=== PATIENT | female | born 1950 | race Caucasian/White ===

== ENCOUNTER 2020-01-26 13:24 | Inpatient (IN) | payer MEDICARE, OTHER ==
[~2020-01-26] VITALS: Ht 157.5 cm; Wt 99.8 kg
[2020-01-26] MEDS ORDERED: DOCU-109 PO (14:02)
[2020-01-26] MEDS ORDERED: ATEN-57 PO (14:02)
[2020-01-26] MEDS ORDERED: FURO-68 PO (14:02)
[2020-01-26] MEDS ORDERED: FLUT9.9S NS (14:02)
[2020-01-26] MEDS ORDERED: CALC-496 PO (14:02)
[2020-01-26] MEDS ORDERED: POLY15DR27 EACHEYE (14:02)
[2020-01-26] MEDS ORDERED: METF10007 PO (14:02)
[2020-01-26] MEDS ORDERED: MAG355OR12 PO (14:02)
[2020-01-26] MEDS ORDERED: LEVO125T5 PO (14:02)
[2020-01-26] MEDS ORDERED: ACET325T9 PO (14:02)
[2020-01-26] MEDS ORDERED: MONT10TA80 PO (14:02)
[2020-01-26] MEDS ORDERED: DIVA250T PO (14:02)
[2020-01-26] MEDS ORDERED: DONE10TA7 PO (14:02)
[2020-01-26] MEDS ORDERED: ALBU2.5V8 IH (14:02)
[2020-01-26] MEDS ORDERED: BUPR300T3 PO (14:02)
[2020-01-26] MEDS ORDERED: ESCITALOPRAM OX20 MG PO (14:02)
[2020-01-26] MEDS ORDERED: AMLO10TA8 PO (14:02)
[2020-01-26] MEDS ORDERED: MULT-121 PO (14:02)
[2020-01-26] MEDS ORDERED: OXYB-36 PO (14:03)
[2020-01-26] MEDS ORDERED: FERR325T14 PO (14:03)
[2020-01-26] MEDS ORDERED: GUAI600T47 PO (14:03)
[2020-01-26] MEDS ORDERED: MAGN64TA6 PO (14:03)
[2020-01-26] MEDS ORDERED: PANT40TA3 PO (14:03)
[2020-01-26] MEDS ORDERED: CLON0.5T4 PO (14:03)
--- NOTE | 2020-01-26 14:25 | NUR ---
Admission Note with Justification for Admission to [facility] Patient admitted to [facility] for protective oversight for emergency stabilization of acute psychiatric crisis. Pt admitted from: LT Facility Mode of arrival: Secure Transport Accompanied By: Secure Transport Precipitating behaviors that initiated intake and admission: hallucinations, delusions, katlin Description of failure of out patient attempts at stabilization in previous setting list behavior and medication trials: increased clonazepam, journaling, redirection Behaviors and assessment findings upon admission: Calm, compliant Plan: Admit for protective oversight for adjustment and stabilization of medications, behaviors and mood. Intense treatment regimen including groups, medication adjustments, therapy, consistent regimen for ADL's, self care, and sleep hygiene. Daily monitoring by Inpatient staff, Psychiatry, and Medical Physician.
[2020-01-26] MEDS ORDERED: METHYL SALICYLATE/MENTHOL TOPICAL OINTMENT 57GM TUBE. TP PRN (14:45)
[2020-01-26] MEDS ORDERED: MAGNESIUM HYDROXIDE 2,400 MG/30 ML ORAL.SUSP. PO PRN (14:45)
[2020-01-26 15:16] LABS: BASO # 0.1 x10^3/uL (0.0-0.2); BASO % 1 % (0-3); EOS # 0.2 x10^3/uL (0.0-0.7); EOS % 3 % (0-3); HEMATOCRIT 39.6 % (36.0-47.0); HEMOGLOBIN 13.1 g/dL (12.0-15.5); LYMPH # 1.9 x10^3/uL (1.0-4.8); LYMPH % 23 % (24-48); MEAN CORPUSCULAR HEMOGLOBIN 30 pg (25-35); MEAN CORPUSCULAR HGB CONC 33 g/dL (31-37); MEAN CORPUSCULAR VOLUME 91 fL (79-100); MONO # 0.9 x10^3/uL (0.0-1.1); MONO % 11 % (0-9); NEUT % 62 % (31-73); PLATELET COUNT 233 x10^3/uL (140-400); RED BLOOD COUNT 4.34 x10^6/uL (3.50-5.40); RED CELL DISTRIBUTION WIDTH 16.6 % (11.5-14.5); WHITE BLOOD COUNT 8.1 x10^3/uL (4.0-11.0)
[2020-01-26 15:24] VITALS: BP 149/81
[2020-01-26 15:26] LABS: ALBUMIN 3.3 g/dL (3.4-5.0); ALBUMIN/GLOBULIN RATIO 0.9 (1.0-1.7); ALK PHOS 69 U/L (46-116); ALT (SGPT) 20 U/L (14-59); ANION GAP 8 (6-14); AST (SGOT) 12 U/L (15-37); BLOOD UREA NITROGEN 32 mg/dL (7-20); BUN/CREATININE RATIO 20 (6-20); CALCIUM 9.5 mg/dL (8.5-10.1); CARBON DIOXIDE 29 mmol/L (21-32); CHLORIDE 107 mmol/L (98-107); CREATININE 1.6 mg/dL (0.6-1.0); GFR 31.9; GLUCOSE 104 mg/dL (70-99); MAGNESIUM 1.8 mg/dL (1.8-2.4); POTASSIUM 4.5 mmol/L (3.5-5.1); SODIUM 144 mmol/L (136-145); TOTAL BILIRUBIN 0.4 mg/dL (0.2-1.0)
[2020-01-26 15:39] LABS: VAL ACID 40 mcg/mL (50-100)
[2020-01-26 16:12] VITALS: BP 149/81
[2020-01-26] MEDS: POLYVINYL ALCOHOL 1.4% OPHTH SOLUTION 15ML BOTTLE. OU SCH (21:00)
[2020-01-26] MEDS ORDERED: ALBUTEROL SULFATE 2.5 MG/3 ML NEBU. IH SCH (21:00)
[2020-01-26] MEDS: ALBUTEROL SULFATE 8GM INHALER. INH SCH (21:00)
[2020-01-26] MEDS: MONTELUKAST 10 MG TABLET. PO SCH (21:26)
[2020-01-26] MEDS: DONEPEZIL HCL 10 MG TABLET PO SCH (21:27)
[2020-01-26] MEDS: PANTOPRAZOLE 40 MG TABLET. PO SCH (21:28)
[2020-01-26] MEDS: DIVALPROEX ER 250 MG TAB.ER.24H. PO SCH (21:28)
[2020-01-26] MEDS: OXYBUTYNIN CHLORIDE 5 MG TABLET PO SCH (21:28)
[2020-01-26] MEDS: clonazePAM 0.5 MG TABLET PO SCH (21:29)
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
--- NOTE | 2020-01-26 22:11 | PDOC ---
Exam Note: Avni Note: Please also refer to the separate dictated note~for this date of service dictated separately.~Patient seen individually. Discussed the patient with Nursing staff reviewed the chart.~Reviewed interim history and current functioning. Reviewed vital signs,~Labs/ Radiology~and current medications noted below. Continue current treatment with the changes noted in the dictated addendum note Assessment: Vital Signs/I&O: Vital Signs Date Time Temp Pulse Resp B/P (MAP) Pulse Ox O2 Delivery O2 Flow Rate FiO2 01/26/20 16:12 97.6 62 18 149/81 (103) 97 01/26/20 15:24 Room Air Labs: Laboratory Tests Test 01/26/20 14:55 01/26/20 19:31 White Blood Count 8.1 x10^3/uL (4.0-11.0) Red Blood Count 4.34 x10^6/uL (3.50-5.40) Hemoglobin 13.1 g/dL (12.0-15.5) Hematocrit 39.6 % (36.0-47.0) Mean Corpuscular Volume 91 fL (79-100) Mean Corpuscular Hemoglobin 30 pg (25-35) Mean Corpuscular Hemoglobin Concent 33 g/dL (31-37) Red Cell Distribution Width 16.6 % (11.5-14.5) H Platelet Count 233 x10^3/uL (140-400) Neutrophils (%) (Auto) 62 % (31-73) Lymphocytes (%) (Auto) 23 % (24-48) L Monocytes (%) (Auto) 11 % (0-9) H Eosinophils (%) (Auto) 3 % (0-3) Basophils (%) (Auto) 1 % (0-3) Neutrophils # (Auto) 5.0 x10^3uL (1.8-7.7) Lymphocytes # (Auto) 1.9 x10^3/uL (1.0-4.8) Monocytes # (Auto) 0.9 x10^3/uL (0.0-1.1) Eosinophils # (Auto) 0.2 x10^3/uL (0.0-0.7) Basophils # (Auto) 0.1 x10^3/uL (0.0-0.2) Sodium Level 144 mmol/L (136-145) Potassium Level 4.5 mmol/L (3.5-5.1) Chloride Level 107 mmol/L (98-107) Carbon Dioxide Level 29 mmol/L (21-32) Anion Gap 8 (6-14) Blood Urea Nitrogen 32 mg/dL (7-20) H Creatinine 1.6 mg/dL (0.6-1.0) H Estimated GFR (Cockcroft-Gault) 31.9 BUN/Creatinine Ratio 20 (6-20) Glucose Level 104 mg/dL (70-99) H Calcium Level 9.5 mg/dL (8.5-10.1) Magnesium Level 1.8 mg/dL (1.8-2.4) Total Bilirubin 0.4 mg/dL (0.2-1.0) Aspartate Amino Transferase (AST) 12 U/L (15-37) L Alanine Aminotransferase (ALT) 20 U/L (14-59) Alkaline Phosphatase 69 U/L (46-116) Total Protein 7.0 g/dL (6.4-8.2) Albumin 3.3 g/dL (3.4-5.0) L Albumin/Globulin Ratio 0.9 (1.0-1.7) L Valproic Acid Level 40 mcg/mL (50-100) L Valproic Acid Last Dose Date 01/25/20 Valproic Acid Last Dose Time 2100 Glucose (Fingerstick) 165 mg/dL (70-99) H Current Medications: Meds: Current Medications Medications (Trade) Dose Ordered Sig/Annika Route PRN Reason Start Time Stop Time Status Last Admin Dose Admin Clonazepam (KlonoPIN) 0.25 mg BID PO 01/26/20 21:00 01/26/20 21:29 Divalproex Sodium (Depakote Er) 1,250 mg HS PO 01/26/20 21:00 01/26/20 21:28 Donepezil HCl (Aricept) 10 mg HS PO 01/26/20 21:00 01/26/20 21:27 Guaifenesin (Mucinex Er) 1,200 mg BID PO 01/26/20 21:00 01/26/20 21:27 Montelukast Sodium (Singulair) 10 mg HS PO 01/26/20 21:00 01/26/20 21:26 Pantoprazole Sodium (Protonix) 40 mg HS PO 01/26/20 21:00 01/26/20 21:28 Oxybutynin Chloride (Ditropan) 5 mg HS PO 01/26/20 21:00 01/26/20 21:28 I have reviewed the current psychotropics carefully including drug interactions. Risk benefit ratio favors no change other than as noted in my dictated progress note. JABARI ARBOLEDA MD Jan 26, 2020 22:11
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
[2020-01-26 23:28] LABS: CLARITY,URINE CLEAR; COLOR,URINE YELLOW; GLUCOSE,URINE NEG (NEG)
[2020-01-26 23:29] LABS: BACTERIA,URINE FEW /HPF (0-FEW); BILIRUBIN,URINE NEG (NEG); NITRITE,URINE NEG (NEG); RBC,URINE 0 /HPF (0-2); SQUAMOUS EPITHELIAL CELL,UR FEW /LPF; UROBILINOGEN,URINE 0.2 mg/dL (0.2 mg/dL); WBC,URINE OCC /HPF (0-4)
[2020-01-26 23:30] LABS: HYALINE CASTS, URINE FEW /HPF
[2020-01-27 00:07] LABS: THYROXINE 6.5 ug/dL (4.5-12.0)
[2020-01-27 01:07] LABS: HEMOGLOBIN A1C 6.1 % (4.8-5.6)
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
[2020-01-27] MEDS: ACETAMINOPHEN 325 MG TABLET PO PRN (05:34)
[2020-01-27] MEDS: LEVOTHYROXINE 125 MCG TABLET PO SCH (05:34)
[2020-01-27 05:52] VITALS: BP 142/82
[2020-01-27] MEDS ORDERED: LEVOTHYROXINE 125 MCG TABLET PO SCH (07:30)
[2020-01-27] MEDS ORDERED: CITALOPRAM 20 MG TABLET. PO SCH (09:00)
[2020-01-27] MEDS: clonazePAM 0.5 MG TABLET PO SCH ×2 (09:38→20:38)
[2020-01-27] MEDS: MULTIVITAMIN with MINERAL TABLET. PO SCH (09:38)
[2020-01-27] MEDS: ATENOLOL 50 MG TABLET PO SCH (09:39)
[2020-01-27] MEDS: FERROUS SULFATE 325 MG TABLET. PO SCH (09:39)
[2020-01-27] MEDS: DOCUSATE SODIUM 100 MG CAPSULE PO SCH (09:39)
[2020-01-27] MEDS: MAGNESIUM CHLORIDE ER 64 MG TABLET.ER PO SCH (09:39)
[2020-01-27] MEDS: CALCIUM CARB/VIT D3 500/200 TABLET PO SCH (09:39)
[2020-01-27] MEDS: buPROPion XL 300 MG TAB.ER.24H. PO SCH (09:40)
[2020-01-27] MEDS: metFORMIN 500 MG TABLET PO SCH (09:40)
[2020-01-27] MEDS: amLODIPine BESYLATE 10 MG TABLET PO SCH (09:40)
[2020-01-27] MEDS: FLUTICASONE 50MCG/NASAL SPRAY 16GM BOTTLE. NS SCH (09:41)
[2020-01-27] MEDS: POLYVINYL ALCOHOL 1.4% OPHTH SOLUTION 15ML BOTTLE. OU SCH ×2 (09:41→20:33)
[2020-01-27] MEDS: FUROSEMIDE 40 MG TABLET PO SCH (09:41)
[2020-01-27] MEDS: ALBUTEROL SULFATE 8GM INHALER. INH SCH ×2 (09:42→20:38)
[2020-01-27 11:22] LABS: THYROID STIM HORMONE (TSH) 0.858 uIU/mL (0.358-3.740)
--- NOTE | 2020-01-27 12:42 | CONS ---
DATE OF CONSULTATION: 01/27/2020 MEDICAL CONSULTATION NOTE ATTENDING PHYSICIAN: Brett Tee M.D. REASON FOR CONSULTATION: We are asked to see this patient for medical consultation. HISTORY OF PRESENT ILLNESS: The patient is a 69-year-old female who was residing at a longterm in [place], [place]. She was sent here because she has underlying bipolar depression. She has been a little bit manic. She has had mood swings, lability, restless, insomnia, a little bit of paranoia. She thinks that she was loaded in an airplane and flown here. She had some flight of ideas. She has no other complaints at this time. She does not appear in acute distress. Much of the history is obtained from the old chart. PAST MEDICAL HISTORY: Issues include bipolar disorder, dementia, hypertension, hypothyroidism, on replacement, iron deficiency anemia, posttraumatic stress disorder, gastroesophageal reflux disease, and seasonal allergies. She also has urge incontinence. CURRENT MEDICATIONS: Reviewed. She was taking Tylenol, albuterol, amlodipine, Tenormin, Wellbutrin, clonazepam, Depakote, docusate, Aricept, Lexapro, iron, fluticasone, Lasix, guaifenesin, Synthroid, magnesium hydroxide, metformin, multivitamin, oxybutynin, Protonix, and artificial tears. ALLERGIES: SHE HAS ALLERGIES TO ADHESIVE TAPES AND FLUOXETINE. Exact reaction is unclear. SOCIAL HISTORY: Nonsmoker and nondrinker. FAMILY HISTORY: Unfortunately is unobtainable. She does not remember. REVIEW OF SYSTEMS: Significant for some mild epigastric discomfort. She denied any fevers, chills, cough, congestion. All other systems reviewed and determined to be negative. PHYSICAL EXAMINATION: GENERAL: When I saw her, this is a pleasant elderly female. INITIAL VITAL SIGNS: Showed a blood pressure of 142/82 mmHg, pulse of 66 and regular, temperature 97.5 degrees Fahrenheit, and oxygen saturation was 95% on room air. HEENT: Head is without trauma. Pupils are reactive. Sclerae nonicteric. Oropharynx is clear. NECK: Supple, no bruits. LUNGS: Otherwise clear. CARDIOVASCULAR: Showed regular heart tones. No obvious gallops. Peripheral pulses are palpable and full. ABDOMEN: Obese, protuberant. No organomegaly. Bowel sounds are normoactive. EXTREMITIES: Showed no cyanosis or edema. SKIN: Warm and dry. She has some degenerative changes of both knees. NEUROLOGIC: The patient is alert and oriented, but she is confused. She was confabulating a bit, saying some relatives are in the building next door. Her cranial nerves 2 through 12 were grossly intact. Her cone runner in upper and lower extremities were equal and symmetrical. Her tendon reflexes in the upper and lower extremities were equal, bilateral and normal with a brisk reflex. Her Romberg test was negative. She walks along fairly well with the use of a walker on wheels. PERTINENT LABORATORY STUDIES: Her hemoglobin is up to 13.1 g/dL with a white count of 8100. Chemistry panel is fairly unremarkable. Potassium 4.5 mEq, creatinine 1.6 mg/dL, nonfasting blood sugar 104. Cholesterol was 215. Thyroid functions were normal. ASSESSMENT: 1. A 69-year-old female, longterm resident with bipolar disorder. 2. Behavioral issues. 3. Dementia, moderate. 4. Type 2 diabetes. 5. Essential hypertension. 6. Degenerative arthritis. 7. History of posttraumatic stress disorder. 8. Remote history of heart disease. RECOMMENDATIONS: 1. The patient is stable from medical standpoint. 2. Continue home meds as ordered. Thank you again for asking me to see this patient for medical consultation. We should gladly follow along during her stay in the hospital. ZAHRA BARBOUR MD DR: JULI/yvon JOB#: [id number] / [id number]
[2020-01-27 16:14] VITALS: BP 131/80
--- NOTE | 2020-01-27 18:05 | NUR ---
Pt has been in room. Withdrawn to bed except meals. Has been intermittently delusions, and somatic. Has been compliant with meds and cares.
[2020-01-27] MEDS: DONEPEZIL HCL 10 MG TABLET PO SCH (20:33)
[2020-01-27] MEDS: PANTOPRAZOLE 40 MG TABLET. PO SCH (20:34)
[2020-01-27] MEDS: traZODone 50 MG TABLET. PO SCH (20:34)
[2020-01-27] MEDS: MONTELUKAST 10 MG TABLET. PO SCH (20:35)
[2020-01-27] MEDS: DIVALPROEX ER 250 MG TAB.ER.24H. PO SCH (20:35)
[2020-01-27] MEDS: OXYBUTYNIN CHLORIDE 5 MG TABLET PO SCH (20:35)
--- NOTE | 2020-01-27 21:58 | PDOC ---
Exam Note: Avni Note: Please also refer to the separate dictated note~for this date of service dictated separately.~Patient seen individually. Discussed the patient with Nursing staff reviewed the chart.~Reviewed interim history and current functioning. Reviewed vital signs,~Labs/ Radiology~and current medications noted below. Continue current treatment with the changes noted in the dictated addendum note Assessment: Vital Signs/I&O: Vital Signs Date Time Temp Pulse Resp B/P (MAP) Pulse Ox O2 Delivery O2 Flow Rate FiO2 01/27/20 16:14 98.3 54 20 131/80 (97) 98 Room Air I & O 01/26/20 01/26/20 01/27/20 15:00 23:00 07:00 Intake Total 600 ml Output Total 1 ml Balance 599 ml Labs: Laboratory Tests Test 01/27/20 08:06 Glucose (Fingerstick) 102 mg/dL (70-99) H Current Medications: Meds: Current Medications Medications (Trade) Dose Ordered Sig/Annika Route PRN Reason Start Time Stop Time Status Last Admin Dose Admin Amlodipine Besylate (Norvasc) 10 mg DAILY PO 01/27/20 09:00 01/27/20 09:40 Atenolol (Tenormin) 50 mg DAILY PO 01/27/20 09:00 01/27/20 09:39 Bupropion HCl (Wellbutrin Xl) 300 mg DAILY PO 01/27/20 09:00 01/27/20 09:40 Docusate Sodium (Colace) 100 mg DAILY PO 01/27/20 09:00 01/27/20 09:39 Ferrous Sulfate (Feosol) 325 mg DAILY PO 01/27/20 09:00 01/27/20 09:39 Furosemide (Lasix) 40 mg DAILY PO 01/27/20 09:00 01/27/20 09:41 Calcium/Vitamin D (Oscal D 500mg/ 200uts) 1 tab DAILY PO 01/27/20 09:00 01/27/20 09:39 Citalopram Hydrobromide (CeleXA) 40 mg DAILY PO 01/27/20 09:00 01/27/20 17:19 DC 01/27/20 09:40 Fluticasone Propionate (Flonase) 2 spray DAILY NS 01/27/20 09:00 01/27/20 09:41 Magnesium Chloride (Mag Delay) 64 mg DAILY PO 01/27/20 09:00 01/27/20 09:39 Metformin HCl (Glucophage) 1,000 mg DAILY PO 01/27/20 09:00 01/27/20 09:40 Multivitamins/ Calcium (Thera-M Plus) 1 tab DAILY PO 01/27/20 09:00 01/27/20 09:38 Levothyroxine Sodium (Synthroid) 125 mcg DAILY@0600 PO 01/27/20 06:00 01/27/20 05:34 Olanzapine (ZyPREXA ZYDIS) 2.5 mg PRN Q2HRS PRN PO PSYCHOSIS 01/27/20 17:15 01/27/20 20:35 Trazodone HCl (Desyrel) 50 mg QHS PO 01/27/20 21:00 01/27/20 20:34 I have reviewed the current psychotropics carefully including drug interactions. Risk benefit ratio favors no change other than as noted in my dictated progress note. Diagnosis: Problems: (1) Bipolar disorder, curr episode mixed, severe, with psychotic features (2) Anxiety disorder, unspecified (3) Impulse control disorder, unspecified JABARI ARBOLEDA MD Jan 27, 2020 21:58
--- NOTE | 2020-01-27 22:00 | NUR ---
Patient is in her room on assumption of care. She is compliant with assessments and medications taken whole floated in yogurt. Cooperative with HS care and shower. Less grandiose and expansive than she was on previous evening, easier to redirect. No agitation. Patient denies any pain or discomfort. Denies SI. Patient appears to be sleeping comfortably at present time.
[2020-01-28 05:51] VITALS: BP 154/78
[2020-01-28] MEDS: LEVOTHYROXINE 125 MCG TABLET PO SCH (06:00)
[2020-01-28 07:42] LABS: VAL ACID 50 mcg/mL (50-100)
[2020-01-28] MEDS: FERROUS SULFATE 325 MG TABLET. PO SCH (08:21)
[2020-01-28] MEDS: CALCIUM CARB/VIT D3 500/200 TABLET PO SCH (08:21)
[2020-01-28] MEDS: FUROSEMIDE 40 MG TABLET PO SCH (08:21)
[2020-01-28] MEDS: ATENOLOL 50 MG TABLET PO SCH (08:22)
[2020-01-28] MEDS: MULTIVITAMIN with MINERAL TABLET. PO SCH (08:23)
[2020-01-28] MEDS: metFORMIN 500 MG TABLET PO SCH (08:23)
[2020-01-28] MEDS: DOCUSATE SODIUM 100 MG CAPSULE PO SCH (08:23)
[2020-01-28] MEDS: MAGNESIUM CHLORIDE ER 64 MG TABLET.ER PO SCH (08:23)
[2020-01-28] MEDS: amLODIPine BESYLATE 10 MG TABLET PO SCH (08:23)
[2020-01-28] MEDS: buPROPion XL 300 MG TAB.ER.24H. PO SCH (08:23)
[2020-01-28] MEDS: FLUTICASONE 50MCG/NASAL SPRAY 16GM BOTTLE. NS SCH (08:24)
[2020-01-28] MEDS: POLYVINYL ALCOHOL 1.4% OPHTH SOLUTION 15ML BOTTLE. OU SCH ×2 (08:24→20:26)
[2020-01-28] MEDS: ARIPiprazole 5 MG TABLET PO SCH (08:26)
[2020-01-28] MEDS: clonazePAM 0.5 MG TABLET PO SCH ×2 (08:26→20:24)
[2020-01-28] MEDS: ALBUTEROL SULFATE 8GM INHALER. INH SCH ×2 (08:26→20:34)
--- NOTE | 2020-01-28 15:38 | NUR ---
Pt remains in room. Up for meals. Compliant with meds. Needy at times. Up with physical therapy in halls. Tolerated well. Pt asked staff when she could go home. Was instructed to talk with DR joie marvin.
[2020-01-28] MEDS: ACETAMINOPHEN 325 MG TABLET PO PRN ×2 (15:53→22:37)
[2020-01-28 16:09] VITALS: BP 139/76
[2020-01-28] MEDS: OXYBUTYNIN CHLORIDE 5 MG TABLET PO SCH (20:24)
[2020-01-28] MEDS: traZODone 50 MG TABLET. PO SCH ×2 (20:24→22:37)
[2020-01-28] MEDS: DIVALPROEX ER 500 MG TAB.ER.24H PO SCH (20:25)
[2020-01-28] MEDS: MONTELUKAST 10 MG TABLET. PO SCH (20:25)
[2020-01-28] MEDS: PANTOPRAZOLE 40 MG TABLET. PO SCH (20:26)
[2020-01-28] MEDS: DONEPEZIL HCL 10 MG TABLET PO SCH (20:26)
--- NOTE | 2020-01-28 21:59 | PDOC ---
Exam Note: Avni Note: Please also refer to the separate dictated note~for this date of service dictated separately.~Patient seen individually. Discussed the patient with Nursing staff reviewed the chart.~Reviewed interim history and current functioning. Reviewed vital signs,~Labs/ Radiology~and current medications noted below. Continue current treatment with the changes noted in the dictated addendum note Assessment: Vital Signs/I&O: Vital Signs Date Time Temp Pulse Resp B/P (MAP) Pulse Ox O2 Delivery O2 Flow Rate FiO2 01/28/20 19:44 97.6 96 01/28/20 16:09 83 18 139/76 (97) 01/27/20 16:14 Room Air I & O 01/27/20 01/27/20 01/28/20 15:00 23:00 07:00 Intake Total 720 ml 600 ml Balance 720 ml 600 ml Labs: Laboratory Tests Test 01/28/20 06:24 01/28/20 08:21 01/28/20 19:15 Valproic Acid Level 50 mcg/mL (50-100) Valproic Acid Last Dose Date 01/26/20 Valproic Acid Last Dose Time 2100 Glucose (Fingerstick) 99 mg/dL (70-99) 210 mg/dL (70-99) H Current Medications: Meds: Current Medications Medications (Trade) Dose Ordered Sig/Annika Route PRN Reason Start Time Stop Time Status Last Admin Dose Admin Aripiprazole (Abilify) 5 mg DAILY PO 01/28/20 09:00 01/28/20 08:26 Divalproex Sodium (Depakote Er) 1,500 mg QHS PO 01/28/20 21:00 01/28/20 20:25 I have reviewed the current psychotropics carefully including drug interactions. Risk benefit ratio favors no change other than as noted in my dictated progress note. Diagnosis: Problems: (1) Impulse control disorder, unspecified (2) Anxiety disorder, unspecified (3) Bipolar disorder, curr episode mixed, severe, with psychotic features JABARI ARBOLEDA MD Jan 28, 2020 21:59
--- NOTE | 2020-01-28 22:19 | NUR ---
Pt was in her room this evening, she took meds whole floated in applesauce. 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 She has been pleasant and cooperative tonight.
[2020-01-28] MEDS: traZODone 50 MG TABLET. PO PRN (22:37)
--- NOTE | 2020-01-28 22:40 | NUR ---
PRN Trazodone and Tylenol given for report of JERRY and not being able to go to sleep.
[2020-01-29] MEDS: LEVOTHYROXINE 125 MCG TABLET PO SCH (05:34)
[2020-01-29 05:46] VITALS: BP 176/69
[2020-01-29] MEDS: MULTIVITAMIN with MINERAL TABLET. PO SCH (07:44)
[2020-01-29] MEDS: ARIPiprazole 5 MG TABLET PO SCH (07:44)
[2020-01-29] MEDS: metFORMIN 500 MG TABLET PO SCH (07:44)
[2020-01-29] MEDS: buPROPion XL 300 MG TAB.ER.24H. PO SCH (07:44)
[2020-01-29] MEDS: MAGNESIUM CHLORIDE ER 64 MG TABLET.ER PO SCH (07:44)
[2020-01-29] MEDS: DOCUSATE SODIUM 100 MG CAPSULE PO SCH (07:44)
[2020-01-29] MEDS: ATENOLOL 50 MG TABLET PO SCH (07:45)
[2020-01-29] MEDS: FUROSEMIDE 40 MG TABLET PO SCH (07:45)
[2020-01-29] MEDS: amLODIPine BESYLATE 10 MG TABLET PO SCH (07:46)
[2020-01-29] MEDS: CALCIUM CARB/VIT D3 500/200 TABLET PO SCH (07:46)
[2020-01-29] MEDS: POLYVINYL ALCOHOL 1.4% OPHTH SOLUTION 15ML BOTTLE. OU SCH ×2 (07:46→20:22)
[2020-01-29] MEDS: FERROUS SULFATE 325 MG TABLET. PO SCH (07:46)
[2020-01-29] MEDS: ALBUTEROL SULFATE 8GM INHALER. INH SCH ×2 (07:47→20:22)
[2020-01-29] MEDS: FLUTICASONE 50MCG/NASAL SPRAY 16GM BOTTLE. NS SCH (07:48)
[2020-01-29] MEDS: clonazePAM 0.5 MG TABLET PO SCH ×2 (07:51→20:23)
--- NOTE | 2020-01-29 13:28 | NUR ---
Pt up in am for meal. Pt remains delusional. Thinks she is getting today and wants Dr to release her. Peer wandered in room. Pt thought peer was her fiance and wanted to discuss adopting a child with him. After lunch pt asked for nurse to come in. Wanted to talk about the guest list and those family members she wanted to move into her "large house, in the the basement." Attempted to reorient pt to hospital setting. Offered her a notebook to write down things she didn't want to forget. Pt said no, she had a great memory.
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
[2020-01-29 16:15] VITALS: BP 145/55
--- NOTE | 2020-01-29 16:15 | NUR ---
Pt has been compliant with meds and cares.
[2020-01-29] MEDS: DONEPEZIL HCL 10 MG TABLET PO SCH (20:22)
[2020-01-29] MEDS: DIVALPROEX ER 500 MG TAB.ER.24H PO SCH (20:23)
[2020-01-29] MEDS: MONTELUKAST 10 MG TABLET. PO SCH (20:23)
[2020-01-29] MEDS: OXYBUTYNIN CHLORIDE 5 MG TABLET PO SCH (20:23)
[2020-01-29] MEDS: PANTOPRAZOLE 40 MG TABLET. PO SCH (20:24)
[2020-01-29] MEDS: traZODone 50 MG TABLET. PO SCH (20:26)
--- NOTE | 2020-01-29 21:56 | PDOC ---
Exam Note: Avni Note: Please also refer to the separate dictated note~for this date of service dictated separately.~Patient seen individually. Discussed the patient with Nursing staff reviewed the chart.~Reviewed interim history and current functioning. Reviewed vital signs,~Labs/ Radiology~and current medications noted below. Continue current treatment with the changes noted in the dictated addendum note Assessment: Vital Signs/I&O: Vital Signs Date Time Temp Pulse Resp B/P (MAP) Pulse Ox O2 Delivery O2 Flow Rate FiO2 01/29/20 16:15 97.7 50 16 145/55 (85) 98 01/27/20 16:14 Room Air I & O 01/28/20 01/28/20 01/29/20 15:00 23:00 07:00 Intake Total 600 ml 480 ml 480 ml Balance 600 ml 480 ml 480 ml Labs: Laboratory Tests Test 01/29/20 20:18 Glucose (Fingerstick) 99 mg/dL (70-99) Current Medications: I have reviewed the current psychotropics carefully including drug interactions. Risk benefit ratio favors no change other than as noted in my dictated progress note. Diagnosis: Problems: (1) Impulse control disorder, unspecified (2) Anxiety disorder, unspecified (3) Bipolar disorder, curr episode mixed, severe, with psychotic features JABARI ARBOLEDA MD Jan 29, 2020 21:56
[2020-01-30] MEDS: LEVOTHYROXINE 125 MCG TABLET PO SCH (05:22)
[2020-01-30 05:52] VITALS: BP 163/74
--- NOTE | 2020-01-30 07:02 | PDOC ---
Exam Note: Avni Note: This note is a late entry for 01/27/2020 covers elements not covered in my initial note. Subjective: The patient was evaluated face to face in the evening of 01/27/2020 with Brenda BOND. She slept 2-3/4 hours previous night. She is somewhat delusional, paranoid, suspicious but not aggressive. She appears somewhat manic and grandiose and we will go ahead and stop her Celexa 20 mg a day, especially since she is also on Wellbutrin 300 mg daily. Review of Systems: Ambulation impaired with walker. No CV, , pulmonary, eye system symptoms on review. Mental Status Exam: Reasonably oriented. Speech is coherent, somewhat pressured at times. Abstraction is fair. Computation is impaired. Language function intact. Attention span short. Affect is somewhat labile. Laboratory Data: Reviewed. Impression: Bipolar 1 disorder mixed with psychotic features. Anxiety disorder unspecified. Rest unchanged. Plan: Start Abilify 5 mg a day for psychotic symptoms. Stop the Celexa. Maintain Wellbutrin 300 mg daily, Depakote ER 1250 mg h.s., which was increased since the level was 40 on the lower dosage. We will repeat labs on the 02/02/2020 including valproic acid level. Maintain Aricept 10 mg a day, Klonopin 0.25 mg b.i.d. Assessment: Vital Signs/I&O: Vital Signs Date Time Temp Pulse Resp B/P (MAP) Pulse Ox O2 Delivery O2 Flow Rate FiO2 01/30/20 05:52 97.8 99 18 163/74 (103) 96 01/27/20 16:14 Room Air I & O 01/29/20 01/29/20 01/30/20 15:00 23:00 07:00 Intake Total 840 ml 240 ml 360 ml Balance 840 ml 240 ml 360 ml Labs: Laboratory Tests Test 01/29/20 20:18 Glucose (Fingerstick) 99 mg/dL (70-99) Current Medications: I have reviewed the current psychotropics carefully including drug interactions. Risk benefit ratio favors no change other than as noted in my dictated progress note. Diagnosis: Problems: (1) Impulse control disorder, unspecified (2) Anxiety disorder, unspecified (3) Bipolar disorder, curr episode mixed, severe, with psychotic features JABARI ARBOLEDA MD Jan 30, 2020 07:02
--- NOTE | 2020-01-30 07:41 | PDOC ---
Exam Note: Avni Note: This note is a late entry for 01/28/2020 covers elements not covered in my initial note. Subjective: The patient was evaluated on telehealth rounds in the evening of 01/28/2020 with Duy Rodriguez RN. Nursing report was with Brenda BOND. She slept 6- 3/4 hours previous night. She has been calmer, repeatedly asking nursing staff she wants to go home, obsessed about this. Review of Systems: No CV, , pulmonary, eye system symptoms on review. Gait unsteady. Mental Status Exam: Oriented to herself and situation. Speech is coherent. Abstraction is fair. Computation is impaired. Mood and affect remains somewhat grandiose, labile. Laboratory Data: Reviewed. Impression: Bipolar disorder manic with psychotic features. Rest unchanged. Plan: Continue current psychotropics. Valproic acid level is 50. We will i ncrease Depakote ER from 1250 mg h.s. to 1500 mg h.s. Check CBC, CMP, valproic acid level in 3 days. Continue rest of the psychotropics unchanged including Abilify, Aricept, Wellbutrin, Klonopin 0.25 mg b.i.d. and trazodone h.s. p.r.n., and Zyprexa p.r.n. Assessment: Vital Signs/I&O: Vital Signs Date Time Temp Pulse Resp B/P (MAP) Pulse Ox O2 Delivery O2 Flow Rate FiO2 01/30/20 05:52 97.8 99 18 163/74 (103) 96 01/27/20 16:14 Room Air I & O 01/29/20 01/29/20 01/30/20 15:00 23:00 07:00 Intake Total 840 ml 240 ml 360 ml Balance 840 ml 240 ml 360 ml Labs: Laboratory Tests Test 01/29/20 20:18 Glucose (Fingerstick) 99 mg/dL (70-99) Current Medications: I have reviewed the current psychotropics carefully including drug interactions. Risk benefit ratio favors no change other than as noted in my dictated progress note. Diagnosis: Problems: (1) Impulse control disorder, unspecified (2) Anxiety disorder, unspecified (3) Bipolar disorder, curr episode mixed, severe, with psychotic features JABARI ARBOLEDA MD Jan 30, 2020 07:41
[2020-01-30] MEDS: ALBUTEROL SULFATE 8GM INHALER. INH SCH ×2 (07:42→20:26)
[2020-01-30] MEDS: POLYVINYL ALCOHOL 1.4% OPHTH SOLUTION 15ML BOTTLE. OU SCH ×2 (07:42→20:26)
[2020-01-30] MEDS: metFORMIN 500 MG TABLET PO SCH (07:43)
[2020-01-30] MEDS: CALCIUM CARB/VIT D3 500/200 TABLET PO SCH (07:43)
[2020-01-30] MEDS: FLUTICASONE 50MCG/NASAL SPRAY 16GM BOTTLE. NS SCH (07:43)
[2020-01-30] MEDS: MAGNESIUM CHLORIDE ER 64 MG TABLET.ER PO SCH (07:43)
[2020-01-30] MEDS: FERROUS SULFATE 325 MG TABLET. PO SCH (07:43)
[2020-01-30] MEDS: DOCUSATE SODIUM 100 MG CAPSULE PO SCH (07:43)
[2020-01-30] MEDS: amLODIPine BESYLATE 10 MG TABLET PO SCH (07:44)
[2020-01-30] MEDS: buPROPion XL 300 MG TAB.ER.24H. PO SCH (07:44)
[2020-01-30] MEDS: MULTIVITAMIN with MINERAL TABLET. PO SCH (07:44)
[2020-01-30] MEDS: FUROSEMIDE 40 MG TABLET PO SCH (07:44)
[2020-01-30] MEDS: ATENOLOL 50 MG TABLET PO SCH (07:44)
[2020-01-30] MEDS: ARIPiprazole 5 MG TABLET PO SCH (07:46)
[2020-01-30] MEDS: clonazePAM 0.5 MG TABLET PO SCH ×2 (09:00→20:28)
[2020-01-30 16:14] VITALS: BP 164/60
--- NOTE | 2020-01-30 18:09 | NUR ---
Pt up adl in room and out in [place] with mask. Remains delusional but calm and compliant.
[2020-01-30] MEDS: traZODone 50 MG TABLET. PO SCH (20:27)
[2020-01-30] MEDS: MONTELUKAST 10 MG TABLET. PO SCH (20:27)
[2020-01-30] MEDS: DIVALPROEX ER 500 MG TAB.ER.24H PO SCH (20:28)
[2020-01-30] MEDS: PANTOPRAZOLE 40 MG TABLET. PO SCH (20:28)
[2020-01-30] MEDS: OXYBUTYNIN CHLORIDE 5 MG TABLET PO SCH (20:29)
[2020-01-30] MEDS: DONEPEZIL HCL 10 MG TABLET PO SCH (20:29)
--- NOTE | 2020-01-30 22:06 | PDOC ---
Exam Note: Avni Note: Please also refer to the separate dictated note~for this date of service dictated separately.~Patient seen individually. Discussed the patient with Nursing staff reviewed the chart.~Reviewed interim history and current functioning. Reviewed vital signs,~Labs/ Radiology~and current medications noted below. Continue current treatment with the changes noted in the dictated addendum note Assessment: Vital Signs/I&O: Vital Signs Date Time Temp Pulse Resp B/P (MAP) Pulse Ox O2 Delivery O2 Flow Rate FiO2 01/30/20 16:14 97.8 54 18 164/60 (94) 94 Room Air I & O 01/29/20 01/29/20 01/30/20 15:00 23:00 07:00 Intake Total 840 ml 240 ml 360 ml Balance 840 ml 240 ml 360 ml Labs: Laboratory Tests Test 01/30/20 07:50 01/30/20 19:24 Glucose (Fingerstick) 103 mg/dL (70-99) H 128 mg/dL (70-99) H Current Medications: Meds: Current Medications Medications (Trade) Dose Ordered Sig/Annika Route PRN Reason Start Time Stop Time Status Last Admin Dose Admin Aripiprazole (Abilify) 7.5 mg DAILY PO 01/30/20 09:00 01/30/20 07:46 I have reviewed the current psychotropics carefully including drug interactions. Risk benefit ratio favors no change other than as noted in my dictated progress note. Diagnosis: Problems: (1) Impulse control disorder, unspecified (2) Anxiety disorder, unspecified (3) Bipolar disorder, curr episode mixed, severe, with psychotic features JABARI ARBOLEDA MD Jan 30, 2020 22:06
--- NOTE | 2020-01-30 23:46 | NUR ---
This evening pt was in [place] for awhile sitting with peers. She was pleasant and cooperative oriented x4 and delusional. She said she is getting tonight or tomorrow to her fiance, Dragan, he is a manager domestic, surgeon and a country music star. After the wedding they are going to [facility] in [place].
[2020-01-31] MEDS: LEVOTHYROXINE 125 MCG TABLET PO SCH (06:00)
[2020-01-31 06:38] VITALS: BP 168/83
--- NOTE | 2020-01-31 07:16 | PDOC ---
Exam Note: Avni Note: This note is a late entry for 01/29/2020 covers elements not covered in my initial note. Subjective: The patient was reviewed face to face in the morning of 01/29/2020 with treatment team meeting with Shiva (social service staff), Yanci, activity therapy, and Brenda BOND. She slept 2-1/2 hours previous night. She is well oriented to year and month, somewhat paranoid, talking about wanting to get to [place] and she was perseverating about this as I met with her at some length in the evening in her room. She has also been paranoid, psychotic talking about a bad man coming into her room and she got agitated through her blanket on the floor compliant with medications. She was also talking about her fianc and adopting a child, getting this very evening. Review of Systems: Ambulation impaired with walker. No CV, , pulmonary, eye, ENT system symptoms on review. Mental Status Exam: The patient is reasonably oriented. Speech is coherent. Abstraction is fair. Computation is impaired. Language function intact. Attention span is short. Mood and affect remains somewhat labile. Laboratory Data: Reviewed. Impression: Bipolar disorder manic with psychotic features. Rest unchanged. Plan: No change from initial note. Given her psychotic symptoms, we will increase the Abilify from 5 mg a day to 7.5 mg a day. Continue Wellbutrin, Aricept, Depakote, Klonopin and trazodone and Zyprexa p.r.n. Assessment: Vital Signs/I&O: Vital Signs Date Time Temp Pulse Resp B/P (MAP) Pulse Ox O2 Delivery O2 Flow Rate FiO2 01/31/20 06:38 97.3 56 16 168/83 (111) 98 01/30/20 16:14 Room Air I & O 01/30/20 01/30/20 01/31/20 15:00 23:00 07:00 Intake Total 700 ml 600 ml Balance 700 ml 600 ml Labs: Laboratory Tests Test 01/30/20 07:50 01/30/20 19:24 Glucose (Fingerstick) 103 mg/dL (70-99) H 128 mg/dL (70-99) H Current Medications: Meds: Current Medications Medications (Trade) Dose Ordered Sig/Annika Route PRN Reason Start Time Stop Time Status Last Admin Dose Admin Aripiprazole (Abilify) 7.5 mg DAILY PO 01/30/20 09:00 01/30/20 07:46 I have reviewed the current psychotropics carefully including drug interactions. Risk benefit ratio favors no change other than as noted in my dictated progress note. Diagnosis: Problems: (1) Impulse control disorder, unspecified (2) Anxiety disorder, unspecified (3) Bipolar disorder, curr episode mixed, severe, with psychotic features JABARI ARBOLEDA MD Jan 31, 2020 07:16
--- NOTE | 2020-01-31 07:29 | PDOC ---
Exam Note: Avni Note: This note is a late entry for 01/30/2020 covers elements not covered in my initial note. Subjective: The patient was evaluated on telehealth rounds in the evening of 01/30/2020 because of the COVID-19 pandemic restrictions with [facility] nursing aid. Nursing report was with Brenda BOND. She slept 5 hours previous night. She was quite delusional, paranoid at times, believing she has to get today and leave for her honeymoon to [place]. I processed this with her. She did have conversation with her daughter today. At times she is half undressed, getting out of her room, compliant with medications. Review of Systems: Ambulation impaired in walker. No CV, , pulmonary, eye system symptoms on review. Mental Status Exam: Reasonably oriented. Speech is coherent, a little pressured. Abstraction is fair. Computation is impaired. Language function intact. Attention span is short. Mood and affect remains somewhat grandiose. Laboratory Data: Reviewed. Impression: Bipolar disorder manic with psychotic features. Rest unchanged. Plan: Continue current psychotropics. The patient remains psychotic. Depakote is being increased for her bipolar manic psychotic symptoms. We will check labs level to reach therapeutic level. We will increase the Abilify from 5 mg a day to 7.5 mg a day. Continue rest unchanged for now. Assessment: Vital Signs/I&O: Vital Signs Date Time Temp Pulse Resp B/P (MAP) Pulse Ox O2 Delivery O2 Flow Rate FiO2 01/31/20 06:38 97.3 56 16 168/83 (111) 98 01/30/20 16:14 Room Air I & O 01/30/20 01/30/20 01/31/20 15:00 23:00 07:00 Intake Total 700 ml 600 ml Balance 700 ml 600 ml Labs: Laboratory Tests Test 01/30/20 07:50 01/30/20 19:24 Glucose (Fingerstick) 103 mg/dL (70-99) H 128 mg/dL (70-99) H Current Medications: Meds: Current Medications Medications (Trade) Dose Ordered Sig/Annika Route PRN Reason Start Time Stop Time Status Last Admin Dose Admin Aripiprazole (Abilify) 7.5 mg DAILY PO 01/30/20 09:00 01/30/20 07:46 I have reviewed the current psychotropics carefully including drug interactions. Risk benefit ratio favors no change other than as noted in my dictated progress note. Diagnosis: Problems: (1) Impulse control disorder, unspecified (2) Anxiety disorder, unspecified (3) Bipolar disorder, curr episode mixed, severe, with psychotic features JABARI ARBOLEDA MD Jan 31, 2020 07:29
[2020-01-31 07:59] LABS: HEMATOCRIT 36.2 % (36.0-47.0); HEMOGLOBIN 11.8 g/dL (12.0-15.5); RED BLOOD COUNT 3.93 x10^6/uL (3.50-5.40); RED CELL DISTRIBUTION WIDTH 16.5 % (11.5-14.5); WHITE BLOOD COUNT 6.2 x10^3/uL (4.0-11.0)
[2020-01-31 08:16] LABS: ALBUMIN 3.1 g/dL (3.4-5.0); ALBUMIN/GLOBULIN RATIO 0.9 (1.0-1.7); ALK PHOS 67 U/L (46-116); ALT (SGPT) 17 U/L (14-59); ANION GAP 5 (6-14); AST (SGOT) 11 U/L (15-37); BLOOD UREA NITROGEN 31 mg/dL (7-20); BUN/CREATININE RATIO 22 (6-20); CALCIUM 9.2 mg/dL (8.5-10.1); CARBON DIOXIDE 29 mmol/L (21-32); CHLORIDE 103 mmol/L (98-107); CREATININE 1.4 mg/dL (0.6-1.0); GFR 37.2; GLUCOSE 107 mg/dL (70-99); POTASSIUM 4.1 mmol/L (3.5-5.1); SODIUM 137 mmol/L (136-145); TOTAL BILIRUBIN 0.3 mg/dL (0.2-1.0); TOTAL PROTEIN 6.7 g/dL (6.4-8.2)
[2020-01-31 08:30] LABS: VAL ACID 56 mcg/mL (50-100)
[2020-01-31] MEDS: ALBUTEROL SULFATE 8GM INHALER. INH SCH ×2 (08:52→21:03)
[2020-01-31] MEDS: FLUTICASONE 50MCG/NASAL SPRAY 16GM BOTTLE. NS SCH (08:53)
[2020-01-31] MEDS: POLYVINYL ALCOHOL 1.4% OPHTH SOLUTION 15ML BOTTLE. OU SCH ×2 (08:53→20:56)
[2020-01-31] MEDS: ARIPiprazole 5 MG TABLET PO SCH (08:54)
[2020-01-31] MEDS: metFORMIN 500 MG TABLET PO SCH (08:54)
[2020-01-31] MEDS: DOCUSATE SODIUM 100 MG CAPSULE PO SCH (08:54)
[2020-01-31] MEDS: FERROUS SULFATE 325 MG TABLET. PO SCH (08:54)
[2020-01-31] MEDS: MAGNESIUM CHLORIDE ER 64 MG TABLET.ER PO SCH (08:55)
[2020-01-31] MEDS: FUROSEMIDE 40 MG TABLET PO SCH (08:55)
[2020-01-31] MEDS: ATENOLOL 50 MG TABLET PO SCH (08:56)
[2020-01-31] MEDS: amLODIPine BESYLATE 10 MG TABLET PO SCH (08:56)
[2020-01-31] MEDS: MULTIVITAMIN with MINERAL TABLET. PO SCH (08:57)
[2020-01-31] MEDS: buPROPion XL 300 MG TAB.ER.24H. PO SCH (08:57)
[2020-01-31] MEDS: CALCIUM CARB/VIT D3 500/200 TABLET PO SCH (08:57)
[2020-01-31] MEDS: clonazePAM 0.5 MG TABLET PO SCH ×2 (08:58→20:55)
--- NOTE | 2020-01-31 14:38 | NUR ---
Pt is delusional stating she is discharging today because she is getting today. She is compliant with her medication and assessment. No agitation and aggression. No hallucinations.
[2020-01-31 16:24] VITALS: BP 151/88
[2020-01-31] MEDS: PANTOPRAZOLE 40 MG TABLET. PO SCH (20:55)
[2020-01-31] MEDS: MONTELUKAST 10 MG TABLET. PO SCH (20:55)
[2020-01-31] MEDS: DONEPEZIL HCL 10 MG TABLET PO SCH (20:56)
[2020-01-31] MEDS: traZODone 50 MG TABLET. PO SCH (20:56)
[2020-01-31] MEDS: DIVALPROEX ER 500 MG TAB.ER.24H PO SCH (20:56)
[2020-01-31] MEDS: OXYBUTYNIN CHLORIDE 5 MG TABLET PO SCH (20:56)
--- NOTE | 2020-01-31 22:03 | PDOC ---
Exam Note: Avni Note: Please also refer to the separate dictated note~for this date of service dictated separately.~Patient seen individually. Discussed the patient with Nursing staff reviewed the chart.~Reviewed interim history and current functioning. Reviewed vital signs,~Labs/ Radiology~and current medications noted below. Continue current treatment with the changes noted in the dictated addendum note Assessment: Vital Signs/I&O: Vital Signs Date Time Temp Pulse Resp B/P (MAP) Pulse Ox O2 Delivery O2 Flow Rate FiO2 01/31/20 21:50 97.8 96 01/31/20 16:24 61 18 151/88 (109) 01/30/20 16:14 Room Air I & O 01/30/20 01/30/20 01/31/20 15:00 23:00 07:00 Intake Total 700 ml 600 ml Balance 700 ml 600 ml Labs: Laboratory Tests Test 01/31/20 07:26 01/31/20 07:58 01/31/20 19:11 White Blood Count 6.2 x10^3/uL (4.0-11.0) Red Blood Count 3.93 x10^6/uL (3.50-5.40) Hemoglobin 11.8 g/dL (12.0-15.5) L Hematocrit 36.2 % (36.0-47.0) Mean Corpuscular Volume 92 fL (79-100) Mean Corpuscular Hemoglobin 30 pg (25-35) Mean Corpuscular Hemoglobin Concent 33 g/dL (31-37) Red Cell Distribution Width 16.5 % (11.5-14.5) H Platelet Count 224 x10^3/uL (140-400) Sodium Level 137 mmol/L (136-145) Potassium Level 4.1 mmol/L (3.5-5.1) Chloride Level 103 mmol/L (98-107) Carbon Dioxide Level 29 mmol/L (21-32) Anion Gap 5 (6-14) L Blood Urea Nitrogen 31 mg/dL (7-20) H Creatinine 1.4 mg/dL (0.6-1.0) H Estimated GFR (Cockcroft-Gault) 37.2 BUN/Creatinine Ratio 22 (6-20) H Glucose Level 107 mg/dL (70-99) H Calcium Level 9.2 mg/dL (8.5-10.1) Total Bilirubin 0.3 mg/dL (0.2-1.0) Aspartate Amino Transferase (AST) 11 U/L (15-37) L Alanine Aminotransferase (ALT) 17 U/L (14-59) Alkaline Phosphatase 67 U/L (46-116) Total Protein 6.7 g/dL (6.4-8.2) Albumin 3.1 g/dL (3.4-5.0) L Albumin/Globulin Ratio 0.9 (1.0-1.7) L Valproic Acid Level 56 mcg/mL (50-100) Valproic Acid Last Dose Date 01/30/20 Valproic Acid Last Dose Time 2027 Glucose (Fingerstick) 97 mg/dL (70-99) 209 mg/dL (70-99) H Current Medications: I have reviewed the current psychotropics carefully including drug interactions. Risk benefit ratio favors no change other than as noted in my dictated progress note. Diagnosis: Problems: (1) Impulse control disorder, unspecified (2) Anxiety disorder, unspecified (3) Bipolar disorder, curr episode mixed, severe, with psychotic features JABARI ARBOLEDA MD Jan 31, 2020 22:03
--- NOTE | 2020-01-31 23:28 | NUR ---
Nursing Note Pt states she is a triplet and that one of her triplet sisters is here on the unit and demanding to speak to her. She also states that she is waiting for the DR and her fiance to come to her room for their "Appointment" that she scheduled earlier today. She also requested to speak with the PBX SUPERVISOR but refused to tell me what about. After the male PBX SUPERVISOR was in her room, he stated she just wanted small things like her pillow fluffed, and another blanket. She was acting like it was some top secret complaint or request. Was compliant with meds and assessments.
[2020-02-01] MEDS: buPROPion XL 300 MG TAB.ER.24H. PO SCH (06:16)
[2020-02-01] MEDS: LEVOTHYROXINE 125 MCG TABLET PO SCH (06:32)
[2020-02-01] MEDS: FUROSEMIDE 40 MG TABLET PO SCH (06:33)
[2020-02-01] MEDS: FERROUS SULFATE 325 MG TABLET. PO SCH (06:34)
[2020-02-01] MEDS: MULTIVITAMIN with MINERAL TABLET. PO SCH (06:34)
[2020-02-01] MEDS: MAGNESIUM CHLORIDE ER 64 MG TABLET.ER PO SCH (06:38)
[2020-02-01] MEDS: metFORMIN 500 MG TABLET PO SCH (06:38)
[2020-02-01] MEDS: CALCIUM CARB/VIT D3 500/200 TABLET PO SCH (06:40)
[2020-02-01] MEDS: ATENOLOL 50 MG TABLET PO SCH (06:40)
[2020-02-01] MEDS: POLYVINYL ALCOHOL 1.4% OPHTH SOLUTION 15ML BOTTLE. OU SCH ×2 (06:41→20:54)
[2020-02-01] MEDS: amLODIPine BESYLATE 10 MG TABLET PO SCH (06:41)
[2020-02-01] MEDS: DOCUSATE SODIUM 100 MG CAPSULE PO SCH (06:41)
[2020-02-01] MEDS: ALBUTEROL SULFATE 8GM INHALER. INH SCH ×2 (06:42→20:54)
[2020-02-01] MEDS: clonazePAM 0.5 MG TABLET PO SCH ×2 (06:42→20:55)
[2020-02-01] MEDS: FLUTICASONE 50MCG/NASAL SPRAY 16GM BOTTLE. NS SCH (06:48)
[2020-02-01 07:13] VITALS: BP 132/84
--- NOTE | 2020-02-01 11:11 | NUR ---
Nursing Note Pt tends to be demanding, and short with staff. Delusional this am, she is preparing for her wedding that is occurring today on the unit with her fiance. The wedding has been postponed for the last 3 days per the patient but now today is the day. Med compliant and cooperative with assessment.
[2020-02-01 16:37] VITALS: BP 151/82
[2020-02-01] MEDS: MONTELUKAST 10 MG TABLET. PO SCH (20:55)
[2020-02-01] MEDS: PANTOPRAZOLE 40 MG TABLET. PO SCH (20:55)
[2020-02-01] MEDS: DONEPEZIL HCL 10 MG TABLET PO SCH (20:55)
[2020-02-01] MEDS: ACETAMINOPHEN 325 MG TABLET PO PRN (20:55)
[2020-02-01] MEDS: risperiDONE 1 MG TABLET. PO SCH (20:55)
[2020-02-01] MEDS: traZODone 50 MG TABLET. PO SCH (20:55)
[2020-02-01] MEDS: OXYBUTYNIN CHLORIDE 5 MG TABLET PO SCH (20:55)
[2020-02-01] MEDS: DIVALPROEX ER 500 MG TAB.ER.24H PO SCH (20:56)
--- NOTE | 2020-02-01 22:03 | PDOC ---
Exam Note: Avni Note: Please also refer to the separate dictated note~for this date of service dictated separately.~Patient seen individually. Discussed the patient with Nursing staff reviewed the chart.~Reviewed interim history and current functioning. Reviewed vital signs,~Labs/ Radiology~and current medications noted below. Continue current treatment with the changes noted in the dictated addendum note Assessment: Vital Signs/I&O: Vital Signs Date Time Temp Pulse Resp B/P (MAP) Pulse Ox O2 Delivery O2 Flow Rate FiO2 02/01/20 16:37 97.6 56 18 151/82 (105) 95 01/30/20 16:14 Room Air I & O 01/31/20 01/31/20 02/01/20 15:00 23:00 07:00 Intake Total 440 ml 440 ml Balance 440 ml 440 ml Labs: Laboratory Tests Test 02/01/20 07:47 Glucose (Fingerstick) 101 mg/dL (70-99) H Current Medications: Meds: Current Medications Medications (Trade) Dose Ordered Sig/Annika Route PRN Reason Start Time Stop Time Status Last Admin Dose Admin Risperidone (RisperDAL) 1 mg HS PO 02/01/20 21:00 02/01/20 20:55 I have reviewed the current psychotropics carefully including drug interactions. Risk benefit ratio favors no change other than as noted in my dictated progress note. Diagnosis: Problems: (1) Impulse control disorder, unspecified (2) Anxiety disorder, unspecified (3) Bipolar disorder, curr episode mixed, severe, with psychotic features JABARI ARBOLEDA MD Feb 01, 2020 22:03
--- NOTE | 2020-02-01 22:49 | NUR ---
Pt has been calm and pleasant during the day. Pt interactive with other peers and enjoyed listening to the jared and coloring. No delusions voiced today. Compliant with medications.
[2020-02-02] MEDS: LEVOTHYROXINE 125 MCG TABLET PO SCH (05:46)
[2020-02-02 06:29] VITALS: BP 188/92
--- NOTE | 2020-02-02 07:04 | PDOC ---
Exam Note: Avni Note: This note is a late entry for 01/31/2020 covers elements not covered in my initial note. Subjective: The patient was evaluated face to face in the evening of 01/31/2020 with Beatrice BOND. She slept 2 hours previous night. Previous night she was delusional, stating she was getting , was going to for [employer]. Valproic acid level at 66 therapeutic. She remains paranoid, psychotic. Review of Systems: Ambulation impaired with walker. No CV, , pulmonary, eye system symptoms on review. Mental Status Exam: Reasonably oriented. Speech is coherent, rapid at times. Abstraction is fair. Computation is impaired. Language function intact. Attention span is short. Mood and affect remains grandiose, labile. Laboratory Data: Reviewed. Impression: Bipolar disorder manic with psychotic features. Rest unchanged. Plan: The patients psychotic symptoms persist in spite of Abilify 7.5 mg a day. We will change to Risperdal 1 mg h.s. Continue Wellbutrin, Aricept, Depakote, Klonopin along with trazodone p.r.n. Valproic acid level therapeutic at 66. Assessment: Vital Signs/I&O: Vital Signs Date Time Temp Pulse Resp B/P (MAP) Pulse Ox O2 Delivery O2 Flow Rate FiO2 02/02/20 06:29 97.5 87 18 188/92 (124) 93 01/30/20 16:14 Room Air I & O 02/01/20 02/01/20 02/02/20 15:00 23:00 07:00 Intake Total 240 ml 600 ml Balance 240 ml 600 ml Labs: Laboratory Tests Test 02/01/20 07:47 Glucose (Fingerstick) 101 mg/dL (70-99) H Current Medications: Meds: Current Medications Medications (Trade) Dose Ordered Sig/Annika Route PRN Reason Start Time Stop Time Status Last Admin Dose Admin Risperidone (RisperDAL) 1 mg HS PO 02/01/20 21:00 02/01/20 20:55 I have reviewed the current psychotropics carefully including drug interactions. Risk benefit ratio favors no change other than as noted in my dictated progress note. Diagnosis: Problems: (1) Impulse control disorder, unspecified (2) Anxiety disorder, unspecified (3) Bipolar disorder, curr episode mixed, severe, with psychotic features JABARI ARBOLEDA MD Feb 02, 2020 07:04
--- NOTE | 2020-02-02 07:34 | PDOC ---
Exam Note: Avni Note: This note is a late entry for 02/01/2020 covers elements not covered in my initial note. Subjective: The patient was evaluated face to face in the evening of 02/01/2020 with Magaly BOND. She slept 6-1/2 hours previous night, which is an improvement. Review of Systems: Ambulation impaired with walker. No CV, , pulmonary, eye, ENT system symptoms on review. Reliability poor. Mental Status Exam: Oriented to herself and situation. Speech is coherent, rapid and loud at times, still delusional, wanting to get to [place] but she states she lost her fianc. Abstraction is fair. Computation is impaired. Language function intact. Laboratory Data: Reviewed. Impression: Bipolar disorder manic with psychotic features. Rest unchanged. Plan: Continue current psychotropics. Assessment: Vital Signs/I&O: Vital Signs Date Time Temp Pulse Resp B/P (MAP) Pulse Ox O2 Delivery O2 Flow Rate FiO2 02/02/20 06:29 97.5 87 18 188/92 (124) 93 01/30/20 16:14 Room Air I & O 02/01/20 02/01/20 02/02/20 15:00 23:00 07:00 Intake Total 240 ml 600 ml Balance 240 ml 600 ml Labs: Laboratory Tests Test 02/01/20 07:47 Glucose (Fingerstick) 101 mg/dL (70-99) H Current Medications: Meds: Current Medications Medications (Trade) Dose Ordered Sig/Annika Route PRN Reason Start Time Stop Time Status Last Admin Dose Admin Risperidone (RisperDAL) 1 mg HS PO 02/01/20 21:00 02/01/20 20:55 I have reviewed the current psychotropics carefully including drug interactions. Risk benefit ratio favors no change other than as noted in my dictated progress note. Diagnosis: Problems: (1) Impulse control disorder, unspecified (2) Anxiety disorder, unspecified (3) Bipolar disorder, curr episode mixed, severe, with psychotic features JABARI ARBOLEDA MD Feb 02, 2020 07:34
[2020-02-02] MEDS: MAGNESIUM CHLORIDE ER 64 MG TABLET.ER PO SCH (09:09)
[2020-02-02] MEDS: FLUTICASONE 50MCG/NASAL SPRAY 16GM BOTTLE. NS SCH (09:09)
[2020-02-02] MEDS: FUROSEMIDE 40 MG TABLET PO SCH (09:09)
[2020-02-02] MEDS: POLYVINYL ALCOHOL 1.4% OPHTH SOLUTION 15ML BOTTLE. OU SCH ×2 (09:09→20:13)
[2020-02-02] MEDS: CALCIUM CARB/VIT D3 500/200 TABLET PO SCH (09:09)
[2020-02-02] MEDS: amLODIPine BESYLATE 10 MG TABLET PO SCH (09:09)
[2020-02-02] MEDS: DOCUSATE SODIUM 100 MG CAPSULE PO SCH (09:09)
[2020-02-02] MEDS: ALBUTEROL SULFATE 8GM INHALER. INH SCH ×2 (09:09→20:18)
[2020-02-02] MEDS: ATENOLOL 50 MG TABLET PO SCH (09:10)
[2020-02-02] MEDS: FERROUS SULFATE 325 MG TABLET. PO SCH (09:10)
[2020-02-02] MEDS: MULTIVITAMIN with MINERAL TABLET. PO SCH (09:10)
[2020-02-02] MEDS: metFORMIN 500 MG TABLET PO SCH (09:10)
[2020-02-02] MEDS: buPROPion XL 300 MG TAB.ER.24H. PO SCH (09:10)
[2020-02-02] MEDS: clonazePAM 0.5 MG TABLET PO SCH ×2 (09:16→20:18)
[2020-02-02] MEDS: ACETAMINOPHEN 325 MG TABLET PO PRN ×2 (09:16→16:13)
--- NOTE | 2020-02-02 14:01 | NUR ---
SHAKA contacted pt dtr Comfort to notify her that the unit as of now is on hold as a pt tested as positive; so until we get more direction from the health department, the Behavioral Unit will do no admissions in and no discharges out. We are hopefully to hear back today if not Wednesday. SHAKA will follow up with pt family. Comfort questioned if the effected pt was near him at all and SHAKA could not confirm or deny if there was any direct interaction.
[2020-02-02 17:01] VITALS: BP 145/71
--- NOTE | 2020-02-02 17:19 | NUR ---
Pt asked to return to room x1. Has been redirectable. Remains delusional. Compliant with meds and cares. Pt still asking to go home.
[2020-02-02] MEDS: DIVALPROEX ER 500 MG TAB.ER.24H PO SCH (20:13)
[2020-02-02] MEDS: MONTELUKAST 10 MG TABLET. PO SCH (20:13)
[2020-02-02] MEDS: DONEPEZIL HCL 10 MG TABLET PO SCH (20:14)
[2020-02-02] MEDS: PANTOPRAZOLE 40 MG TABLET. PO SCH (20:14)
[2020-02-02] MEDS: traZODone 50 MG TABLET. PO SCH (20:14)
[2020-02-02] MEDS: risperiDONE 1 MG TABLET. PO SCH (20:14)
[2020-02-02] MEDS: OXYBUTYNIN CHLORIDE 5 MG TABLET PO SCH (20:14)
--- NOTE | 2020-02-02 21:57 | PDOC ---
Exam Note: Avni Note: Please also refer to the separate dictated note~for this date of service dictated separately.~Patient seen individually. Discussed the patient with Nursing staff reviewed the chart.~Reviewed interim history and current functioning. Reviewed vital signs,~Labs/ Radiology~and current medications noted below. Continue current treatment with the changes noted in the dictated addendum note Assessment: Vital Signs/I&O: Vital Signs Date Time Temp Pulse Resp B/P (MAP) Pulse Ox O2 Delivery O2 Flow Rate FiO2 02/02/20 17:01 97.8 70 20 145/71 (95) 90 01/30/20 16:14 Room Air I & O 02/01/20 02/01/20 02/02/20 15:00 23:00 07:00 Intake Total 240 ml 600 ml Balance 240 ml 600 ml Labs: Laboratory Tests Test 02/02/20 07:30 02/02/20 08:16 Glucose (Fingerstick) 83 mg/dL (70-99) Coronavirus (PCR) Not detected (Not Detected) Current Medications: I have reviewed the current psychotropics carefully including drug interactions. Risk benefit ratio favors no change other than as noted in my dictated progress note. Diagnosis: Problems: (1) Impulse control disorder, unspecified (2) Anxiety disorder, unspecified (3) Bipolar disorder, curr episode mixed, severe, with psychotic features JABARI ARBOLEDA MD Feb 02, 2020 21:57
--- NOTE | 2020-02-02 22:38 | NUR ---
Nursing Note: Pt laying in bed backwards upon assessment. Pt compliant with meds and assessment. Pt was demanding about getting a brief and was trying to go back to bed instead of going to the bathroom. Pt redirected and was pleasant.
[2020-02-03] MEDS: amLODIPine BESYLATE 10 MG TABLET PO SCH (05:09)
[2020-02-03] MEDS: ACETAMINOPHEN 325 MG TABLET PO PRN (05:09)
[2020-02-03] MEDS: LEVOTHYROXINE 125 MCG TABLET PO SCH (05:10)
[2020-02-03 05:52] VITALS: BP 189/82
[2020-02-03] MEDS: ALBUTEROL SULFATE 8GM INHALER. INH SCH ×2 (08:09→21:11)
[2020-02-03] MEDS: POLYVINYL ALCOHOL 1.4% OPHTH SOLUTION 15ML BOTTLE. OU SCH ×2 (08:09→21:09)
[2020-02-03] MEDS: FLUTICASONE 50MCG/NASAL SPRAY 16GM BOTTLE. NS SCH (08:10)
[2020-02-03] MEDS: metFORMIN 500 MG TABLET PO SCH (08:10)
[2020-02-03] MEDS: MULTIVITAMIN with MINERAL TABLET. PO SCH (08:10)
[2020-02-03] MEDS: MAGNESIUM CHLORIDE ER 64 MG TABLET.ER PO SCH (08:10)
[2020-02-03] MEDS: DOCUSATE SODIUM 100 MG CAPSULE PO SCH (08:11)
[2020-02-03] MEDS: CALCIUM CARB/VIT D3 500/200 TABLET PO SCH (08:11)
[2020-02-03] MEDS: FUROSEMIDE 40 MG TABLET PO SCH (08:11)
[2020-02-03] MEDS: FERROUS SULFATE 325 MG TABLET. PO SCH (08:11)
[2020-02-03] MEDS: ATENOLOL 50 MG TABLET PO SCH (08:11)
[2020-02-03] MEDS: buPROPion XL 300 MG TAB.ER.24H. PO SCH (08:11)
[2020-02-03] MEDS: clonazePAM 0.5 MG TABLET PO SCH ×2 (08:13→21:11)
[2020-02-03 15:50] VITALS: BP 146/74
--- NOTE | 2020-02-03 16:25 | NUR ---
Pt has been up in room. restless and anxious in afternoon. Yelling at staff that she needs to leave because she's getting . Redirected eventually.
[2020-02-03] MEDS: risperiDONE 1 MG TABLET. PO SCH (21:08)
[2020-02-03] MEDS: MONTELUKAST 10 MG TABLET. PO SCH (21:08)
[2020-02-03] MEDS: DONEPEZIL HCL 10 MG TABLET PO SCH (21:08)
[2020-02-03] MEDS: PANTOPRAZOLE 40 MG TABLET. PO SCH (21:08)
[2020-02-03] MEDS: OXYBUTYNIN CHLORIDE 5 MG TABLET PO SCH (21:08)
[2020-02-03] MEDS: DIVALPROEX ER 500 MG TAB.ER.24H PO SCH (21:09)
[2020-02-03] MEDS: risperiDONE 0.25 MG TABLET. PO SCH (21:09)
[2020-02-03] MEDS: hydrALAZINE 25 MG TABLET PO SCH (21:11)
[2020-02-03] MEDS: traZODone 50 MG TABLET. PO SCH (21:11)
--- NOTE | 2020-02-03 21:56 | PDOC ---
Exam Note: Avni Note: Please also refer to the separate dictated note~for this date of service dictated separately.~Patient seen individually. Discussed the patient with Nursing staff reviewed the chart.~Reviewed interim history and current functioning. Reviewed vital signs,~Labs/ Radiology~and current medications noted below. Continue current treatment with the changes noted in the dictated addendum note Assessment: Vital Signs/I&O: Vital Signs Date Time Temp Pulse Resp B/P (MAP) Pulse Ox O2 Delivery O2 Flow Rate FiO2 02/03/20 21:11 58 146/74 02/03/20 15:50 98.1 20 96 Room Air I & O 02/02/20 02/02/20 02/03/20 15:00 23:00 07:00 Intake Total 480 ml 600 ml Balance 480 ml 600 ml Labs: Laboratory Tests Test 02/03/20 07:48 Glucose (Fingerstick) 91 mg/dL (70-99) Current Medications: Meds: Current Medications Medications (Trade) Dose Ordered Sig/Annika Route PRN Reason Start Time Stop Time Status Last Admin Dose Admin Hydralazine HCl (Apresoline) 25 mg TID PO 02/03/20 21:00 02/03/20 21:11 Risperidone (RisperDAL) 1 mg HS PO 02/03/20 21:00 02/03/20 21:08 Risperidone (RisperDAL) 0.25 mg QHS PO 02/03/20 21:00 02/03/20 21:09 I have reviewed the current psychotropics carefully including drug interactions. Risk benefit ratio favors no change other than as noted in my dictated progress note. Diagnosis: Problems: (1) Impulse control disorder, unspecified (2) Anxiety disorder, unspecified (3) Bipolar disorder, curr episode mixed, severe, with psychotic features JABARI ARBOLEDA MD Feb 03, 2020 21:56
--- NOTE | 2020-02-03 23:34 | NUR ---
Pt has been delusional, argumentative and demanding this shift. 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 It appears that pt believes a male pt is her brother and is demanding that the male pt sleep in the empty bed in her room. Pt came out of her room numerous times without a mask on and became irritable with redirection. Pt asking for multiple snacks this evening. Compliant with whole medications.
[2020-02-04 05:47] VITALS: BP 169/82
--- NOTE | 2020-02-04 05:57 | NUR ---
Pt has been up and down throughout the night. Each time pt requested different items: snacks, coloring pencils, to sit in the hallway, breakfast, etc. Pt hyperverbal and manic. Pt states she is not tired. Will continue to monitor.
[2020-02-04] MEDS: LEVOTHYROXINE 125 MCG TABLET PO SCH (06:00)
[2020-02-04] MEDS: FUROSEMIDE 40 MG TABLET PO SCH (07:46)
[2020-02-04] MEDS: MAGNESIUM CHLORIDE ER 64 MG TABLET.ER PO SCH (07:46)
[2020-02-04] MEDS: FERROUS SULFATE 325 MG TABLET. PO SCH (07:46)
[2020-02-04] MEDS: metFORMIN 500 MG TABLET PO SCH (07:47)
[2020-02-04] MEDS: buPROPion XL 300 MG TAB.ER.24H. PO SCH (07:47)
[2020-02-04] MEDS: DOCUSATE SODIUM 100 MG CAPSULE PO SCH (07:47)
[2020-02-04] MEDS: hydrALAZINE 25 MG TABLET PO SCH ×3 (07:47→20:28)
[2020-02-04] MEDS: ATENOLOL 50 MG TABLET PO SCH (07:48)
[2020-02-04] MEDS: MULTIVITAMIN with MINERAL TABLET. PO SCH (07:48)
[2020-02-04] MEDS: CALCIUM CARB/VIT D3 500/200 TABLET PO SCH (07:48)
[2020-02-04] MEDS: amLODIPine BESYLATE 10 MG TABLET PO SCH (07:48)
[2020-02-04] MEDS: FLUTICASONE 50MCG/NASAL SPRAY 16GM BOTTLE. NS SCH (07:49)
[2020-02-04] MEDS: POLYVINYL ALCOHOL 1.4% OPHTH SOLUTION 15ML BOTTLE. OU SCH ×2 (07:49→20:28)
[2020-02-04] MEDS: ALBUTEROL SULFATE 8GM INHALER. INH SCH ×2 (07:50→20:31)
[2020-02-04] MEDS: clonazePAM 0.5 MG TABLET PO SCH ×2 (07:52→20:32)
[2020-02-04 15:47] VITALS: BP 136/83
--- NOTE | 2020-02-04 17:14 | NUR ---
Pt has been up adl in room. Has been delusional but less so today. Has been compliant with meds and cares.
[2020-02-04] MEDS: PANTOPRAZOLE 40 MG TABLET. PO SCH (20:28)
[2020-02-04] MEDS: DONEPEZIL HCL 10 MG TABLET PO SCH (20:28)
[2020-02-04] MEDS: MONTELUKAST 10 MG TABLET. PO SCH (20:28)
[2020-02-04] MEDS: DIVALPROEX ER 500 MG TAB.ER.24H PO SCH (20:29)
[2020-02-04] MEDS: risperiDONE 1 MG TABLET. PO SCH (20:32)
[2020-02-04] MEDS: traZODone 50 MG TABLET. PO SCH (20:32)
[2020-02-04] MEDS: risperiDONE 0.25 MG TABLET. PO SCH (20:32)
[2020-02-04] MEDS: OXYBUTYNIN CHLORIDE 5 MG TABLET PO SCH (20:32)
--- NOTE | 2020-02-04 22:01 | PDOC ---
Exam Note: Avni Note: Please also refer to the separate dictated note~for this date of service dictated separately.~Patient seen individually. Discussed the patient with Nursing staff reviewed the chart.~Reviewed interim history and current functioning. Reviewed vital signs,~Labs/ Radiology~and current medications noted below. Continue current treatment with the changes noted in the dictated addendum note Assessment: Vital Signs/I&O: Vital Signs Date Time Temp Pulse Resp B/P (MAP) Pulse Ox O2 Delivery O2 Flow Rate FiO2 02/04/20 20:59 98.2 99 02/04/20 20:28 70 136/83 02/04/20 15:47 19 Room Air I & O 02/03/20 02/03/20 02/04/20 15:00 23:00 07:00 Intake Total 720 ml 240 ml 640 ml Balance 720 ml 240 ml 640 ml Labs: Laboratory Tests Test 02/04/20 07:53 Glucose (Fingerstick) 85 mg/dL (70-99) Current Medications: I have reviewed the current psychotropics carefully including drug interactions. Risk benefit ratio favors no change other than as noted in my dictated progress note. Diagnosis: Problems: (1) Impulse control disorder, unspecified (2) Anxiety disorder, unspecified (3) Bipolar disorder, curr episode mixed, severe, with psychotic features JABARI ARBOLEDA MD Feb 04, 2020 22:01
--- NOTE | 2020-02-04 22:40 | NUR ---
Pt continues to be delusional and attention seeking. Pt asking for numerous snacks this evening. Compliant with whole medications.
[2020-02-05] MEDS: ACETAMINOPHEN 325 MG TABLET PO PRN (01:37)
[2020-02-05] MEDS: traZODone 50 MG TABLET. PO PRN (01:37)
[2020-02-05 05:56] VITALS: BP 168/78
[2020-02-05] MEDS: LEVOTHYROXINE 125 MCG TABLET PO SCH (06:14)
--- NOTE | 2020-02-05 07:00 | PDOC ---
Exam Note: Avni Note: This note is a late entry for 02/02/2020 covers elements not covered in my initial note. Subjective: The patient was evaluated on telehealth rounds in the evening of 02/02/2020 with [facility] nursing aid as one of the patients on the unit has tested positive for COVID-19 and unit is on a lockdown with no admission and discharges. That is the reason I am doing telehealth rounds to minimize any further spread of the infection. Nursing report with Brenda BOND. She slept 1 hour previous night. She did attend group previous night, somewhat delusional. Review of Systems: Ambulation impaired in wheelchair. No CV, , pulmonary, eye, ENT system symptoms on review. Mental Status Exam: Reasonably oriented. I met with her at some length in her room on telehealth rounds. She is fixated on wanting to get , and go to [place]. States she can put it off if she has to be in the hospital for some time. I processed this with her. She is anxious, restless. Speech is coherent, rapid. Abstraction is fair. Computation is impaired. Language function intact. Mood and affect withdrawn. Laboratory Data: Reviewed. Impression: Bipolar disorder manic with psychotic features. Rest unchanged. Plan: She remains on Risperdal 1 mg h.s. for her delusions. We may need to increase this. Assessment: Vital Signs/I&O: Vital Signs Date Time Temp Pulse Resp B/P (MAP) Pulse Ox O2 Delivery O2 Flow Rate FiO2 02/05/20 05:56 97.6 57 18 168/78 (108) 97 Room Air I & O 02/04/20 02/04/20 02/05/20 15:00 23:00 07:00 Intake Total 960 ml 600 ml Balance 960 ml 600 ml Labs: Laboratory Tests Test 02/04/20 07:53 Glucose (Fingerstick) 85 mg/dL (70-99) Current Medications: I have reviewed the current psychotropics carefully including drug interactions. Risk benefit ratio favors no change other than as noted in my dictated progress note. Diagnosis: Problems: (1) Impulse control disorder, unspecified (2) Anxiety disorder, unspecified (3) Bipolar disorder, curr episode mixed, severe, with psychotic features JABARI ARBOLEDA MD Feb 05, 2020 07:00
--- NOTE | 2020-02-05 07:17 | PDOC ---
Exam Note: Avni Note: This note is a late entry for 02/03/2020 covers elements not covered in my initial note. Subjective: The patient was evaluated on telehealth rounds in the evening of 02/03/2020 with [facility] nursing aid as one of the patients on the unit has tested positive for COVID-19 and unit is on a lockdown with no admission and discharges. That is the reason I am doing telehealth rounds to minimize any further spread of the infection. Nursing report with Brenda BOND. She slept 7- 3/4 hours previous night. She has been coming out of her room. In the evening she was yelling out, wanting to be discharged so can go and get . She states she fell previous night but this was not observed per nursing staff. Review of Systems: Ambulation impaired in wheelchair. No CV, , pulmonary, eye, ENT system symptoms on review. Mental Status Exam: Oriented to herself and situation. She is quite delusional about her marriage. Speech is coherent. Abstraction is fair. Computation is impaired. Attention span is short. No suicidal or homicidal ideation. Laboratory Data: Reviewed. Impression: Bipolar disorder manic with psychotic features. Rest unchanged. Plan: No change from initial note but we will go ahead and increase the Risperdal from 1 mg h.s. to 1.25 mg h.s. Assessment: Vital Signs/I&O: Vital Signs Date Time Temp Pulse Resp B/P (MAP) Pulse Ox O2 Delivery O2 Flow Rate FiO2 02/05/20 05:56 97.6 57 18 168/78 (108) 97 Room Air I & O 02/04/20 02/04/20 02/05/20 15:00 23:00 07:00 Intake Total 960 ml 600 ml Balance 960 ml 600 ml Labs: Laboratory Tests Test 02/04/20 07:53 Glucose (Fingerstick) 85 mg/dL (70-99) Current Medications: I have reviewed the current psychotropics carefully including drug interactions. Risk benefit ratio favors no change other than as noted in my dictated progress note. Diagnosis: Problems: (1) Impulse control disorder, unspecified (2) Anxiety disorder, unspecified (3) Bipolar disorder, curr episode mixed, severe, with psychotic features JABARI ARBOLEDA MD Feb 05, 2020 07:17
--- NOTE | 2020-02-05 07:27 | PDOC ---
Exam Note: Avni Note: This note is a late entry for 02/04/2020 covers elements not covered in my initial note. Subjective: The patient was evaluated on telehealth rounds in the evening of 02/04/2020 with [facility] nursing aid as one of the patients on the unit has tested positive for COVID-19 and unit is on a lockdown with no admission and discharges. That is the reason I am doing telehealth rounds to minimize any further spread of the infection. Nursing report with Brenda BOND. She slept 3- 1/4 hours previous night. Previous night she was irritable, restless, anxious, distractible, at times refused to use the mask. Review of Systems: Ambulation impaired in wheelchair. No CV, , pulmonary, eye, ENT system symptoms on review. Mental Status Exam: Reasonably oriented. Speech is coherent, rapid and loud at times, still delusional. Abstraction is fair. Computation is impaired. Language function intact. Attention span is short. No suicidal or homicidal i deation. She remains paranoid suspicious, believes she has to get but we discussed how it is important to focus on her own health and then discuss other issues later. She is accepting of this. Laboratory Data: Reviewed. Impression: Bipolar disorder manic with psychotic features. Anxiety disorder unspecified. Rest unchanged. Plan: Continue current psychotropics. Assessment: Vital Signs/I&O: Vital Signs Date Time Temp Pulse Resp B/P (MAP) Pulse Ox O2 Delivery O2 Flow Rate FiO2 02/05/20 05:56 97.6 57 18 168/78 (108) 97 Room Air I & O 0 02/04/20 02/04/20 02/05/20 15:00 23:00 07:00 Intake Total 960 ml 600 ml Balance 960 ml 600 ml Labs: Laboratory Tests Test 02/04/20 07:53 Glucose (Fingerstick) 85 mg/dL (70-99) Current Medications: I have reviewed the current psychotropics carefully including drug interactions. Risk benefit ratio favors no change other than as noted in my dictated progress note. Diagnosis: Problems: (1) Impulse control disorder, unspecified (2) Anxiety disorder, unspecified (3) Bipolar disorder, curr episode mixed, severe, with psychotic features JABARI ARBOLEDA MD Feb 05, 2020 07:27
[2020-02-05] MEDS: FERROUS SULFATE 325 MG TABLET. PO SCH (08:24)
[2020-02-05] MEDS: amLODIPine BESYLATE 10 MG TABLET PO SCH (08:25)
[2020-02-05] MEDS: hydrALAZINE 25 MG TABLET PO SCH ×3 (08:25→20:25)
[2020-02-05] MEDS: MAGNESIUM CHLORIDE ER 64 MG TABLET.ER PO SCH (08:26)
[2020-02-05] MEDS: FUROSEMIDE 40 MG TABLET PO SCH (08:26)
[2020-02-05] MEDS: DOCUSATE SODIUM 100 MG CAPSULE PO SCH (08:27)
[2020-02-05] MEDS: metFORMIN 500 MG TABLET PO SCH (08:27)
[2020-02-05] MEDS: buPROPion XL 300 MG TAB.ER.24H. PO SCH (08:27)
[2020-02-05] MEDS: clonazePAM 0.5 MG TABLET PO SCH ×2 (08:27→20:28)
[2020-02-05] MEDS: ATENOLOL 50 MG TABLET PO SCH (08:28)
[2020-02-05] MEDS: CALCIUM CARB/VIT D3 500/200 TABLET PO SCH (08:28)
[2020-02-05] MEDS: MULTIVITAMIN with MINERAL TABLET. PO SCH (08:28)
[2020-02-05] MEDS: FLUTICASONE 50MCG/NASAL SPRAY 16GM BOTTLE. NS SCH (09:42)
[2020-02-05] MEDS: POLYVINYL ALCOHOL 1.4% OPHTH SOLUTION 15ML BOTTLE. OU SCH ×2 (09:42→20:31)
[2020-02-05] MEDS: ALBUTEROL SULFATE 8GM INHALER. INH SCH ×2 (09:43→20:31)
--- NOTE | 2020-02-05 12:42 | NUR ---
Patient in room in chair during initial assessment. Calm and cooperative with assessment. Medication given floated in yogurt, taken without difficulty. No delusions noted at this time. Will continue to monitor.
[2020-02-05 16:35] VITALS: BP 136/82
--- NOTE | 2020-02-05 17:18 | NUR ---
SHAKA contacted pt dtr, Comfort, to let her know that pt Covoid test came back negative. However, there is a pt that tested positive; which means that the unit will be quarantined for the next 2 weeks. Pt dtr is thankful her mother's test was positive and believed that this was just more time for her behaviors to be monitored and medications assessed. Comfort asked about sending frank and SW informed her that cards or pictures would be better. Frank are kept in the nurses station and pt would not be able to fully enjoy them. SHAKA will continue to keep pt dtr up to date over the course of 2 weeks.
[2020-02-05] MEDS: risperiDONE 0.25 MG TABLET. PO SCH (20:25)
[2020-02-05] MEDS: risperiDONE 1 MG TABLET. PO SCH (20:25)
[2020-02-05] MEDS: DIVALPROEX ER 500 MG TAB.ER.24H PO SCH (20:25)
[2020-02-05] MEDS: DONEPEZIL HCL 10 MG TABLET PO SCH (20:25)
[2020-02-05] MEDS: OXYBUTYNIN CHLORIDE 5 MG TABLET PO SCH (20:25)
[2020-02-05] MEDS: MONTELUKAST 10 MG TABLET. PO SCH (20:26)
[2020-02-05] MEDS: PANTOPRAZOLE 40 MG TABLET. PO SCH (20:26)
[2020-02-05] MEDS: traZODone 50 MG TABLET. PO SCH (20:27)
[2020-02-05] MEDS: MAG HYDROX/AL HYDROX/SIMETH 30 ML ORAL.SUSP PO PRN (21:22)
--- NOTE | 2020-02-05 22:53 | NUR ---
Pt has been somatic and attention seeking this evening. Pt up to the nurses station window numerous times with mask on. Pt asking for multiple snacks. Compliant with whole medications.
[2020-02-06 06:01] VITALS: BP 150/79
[2020-02-06] MEDS: LEVOTHYROXINE 125 MCG TABLET PO SCH (06:05)
--- NOTE | 2020-02-06 07:32 | PDOC ---
Exam Note: Avni Note: This note is a late entry for 02/05/2020 covers elements not covered in my initial note. Subjective: The patient was reviewed at treatment team meeting in the morning on telehealth rounds on 02/05/2020 including Melvi and Karlee, (social service staff), Cassie RN. Nursing report was with Sara BOND. She slept 4-3/4 hours previous night. Appetite is 95%. The patient is less delusional, about wanting to get . Review of Systems: No CV, , pulmonary, eye system symptoms on review. Gait unsteady with walker. Mental Status Exam: Oriented to herself and situation. Speech coherent, rapid at times. Abstraction is fair. Computation is impaired. She is still somewhat grandiose. Laboratory Data: Reviewed Impression: Bipolar disorder manic with psychotic features. Anxiety disorder unspecified. Rest unchanged. Plan: No change from initial note. Dr. Gómez will be covering for me during my vacation from 02/06/2020 to 02/12/2020. Assessment: Vital Signs/I&O: Vital Signs Date Time Temp Pulse Resp B/P (MAP) Pulse Ox O2 Delivery O2 Flow Rate FiO2 02/06/20 06:01 98.5 61 16 150/79 (102) 94 02/05/20 05:56 Room Air I & O 02/05/20 02/05/20 02/06/20 15:00 23:00 07:00 Intake Total 600 ml 560 ml Balance 600 ml 560 ml Labs: Laboratory Tests Test 02/05/20 11:57 SARS-CoV-2 Antigen (Rapid) Negative (NEGATIVE) Current Medications: I have reviewed the current psychotropics carefully including drug interactions. Risk benefit ratio favors no change other than as noted in my dictated progress note. Diagnosis: Problems: (1) Impulse control disorder, unspecified (2) Anxiety disorder, unspecified (3) Bipolar disorder, curr episode mixed, severe, with psychotic features JABARI ARBOLEDA MD Feb 06, 2020 07:32
[2020-02-06] MEDS: FLUTICASONE 50MCG/NASAL SPRAY 16GM BOTTLE. NS SCH ×2 (08:47→20:29)
[2020-02-06] MEDS: ALBUTEROL SULFATE 8GM INHALER. INH SCH ×2 (08:47→20:29)
[2020-02-06] MEDS: POLYVINYL ALCOHOL 1.4% OPHTH SOLUTION 15ML BOTTLE. OU SCH ×2 (08:47→20:31)
[2020-02-06] MEDS: MAGNESIUM CHLORIDE ER 64 MG TABLET.ER PO SCH (08:48)
[2020-02-06] MEDS: FERROUS SULFATE 325 MG TABLET. PO SCH (08:48)
[2020-02-06] MEDS: FUROSEMIDE 40 MG TABLET PO SCH (08:48)
[2020-02-06] MEDS: CALCIUM CARB/VIT D3 500/200 TABLET PO SCH (08:48)
[2020-02-06] MEDS: MULTIVITAMIN with MINERAL TABLET. PO SCH (08:48)
[2020-02-06] MEDS: DOCUSATE SODIUM 100 MG CAPSULE PO SCH (08:48)
[2020-02-06] MEDS: ATENOLOL 50 MG TABLET PO SCH (08:48)
[2020-02-06] MEDS: clonazePAM 0.5 MG TABLET PO SCH ×2 (08:48→20:34)
[2020-02-06] MEDS: buPROPion XL 300 MG TAB.ER.24H. PO SCH (08:49)
[2020-02-06] MEDS: amLODIPine BESYLATE 10 MG TABLET PO SCH (08:49)
[2020-02-06] MEDS: metFORMIN 500 MG TABLET PO SCH (08:50)
[2020-02-06] MEDS: hydrALAZINE 25 MG TABLET PO SCH ×3 (08:50→20:30)
--- NOTE | 2020-02-06 10:36 | NUR ---
Patient laying on side in bed and reports stomach ache Nurse palpated abdomen, patient denies pain. She then stated that it hurt "above" where nurse checked. Patient denies constipation and medical record states that she had a large bowel movement yesterday. Patient needed encouragement to take her medications because she continued to lay on her bed after assessment instead of sitting up to take the medications.. Patient has a very regimented way for taking her medications. She wants them with yogurt, but only puts a few in the yogurt one at a time; she then swallows the others and then eats the remaining yogurt. After yogurt she wants orange juice but instead of reaching for it herself she sat there. Eventually she asked nurse to hand her the orange juice. Patient is oriented to self, hospital and date. She denies having delusions at this time. Patient slept 6 hours last night.
--- NOTE | 2020-02-06 12:17 | NUR ---
Patient continues to report stomach discomfort. The pain is now in a different spot than she previously reported. She denies constipation and nausea. Patient has a history of somatic complaints. Nurse observed patient eating her lunch. PRN Maalox/simethicone provided per order for dyspepsia. Will continue to monitor. Addendum: 02/06/20 at 1517 by ANGELES DEVINE RN Maalox not effective. Dr. Caraballo evaluated patient on rounds. She is to be NPO after midnight with an ultrasound scheduled for wednesday.
[2020-02-06] MEDS: MAG HYDROX/AL HYDROX/SIMETH 30 ML ORAL.SUSP PO PRN (12:24)
[2020-02-06 14:14] VITALS: BP 129/74
--- NOTE | 2020-02-06 16:02 | PN ---
DATE: 02/06/2020 SUBJECTIVE: The patient was seen at the nursing staff request as the patient has been complaining of severe pain in her epigastric and right upper quadrant that is worse when she is lying flat; however, food does not really aggravate her symptoms. She denied any nausea or vomiting. Denied any diarrhea or constipation. Denied any hematemesis, melena, or hematochezia. PHYSICAL EXAMINATION: GENERAL: When I examined her this afternoon, she was sitting comfortably in her chair, in no apparent respiratory distress. She was somewhat pale, but no jaundice, cyanosis or thyromegaly. No jugular venous distention. No limb edema. VITAL SIGNS: Her heart rate was 62, blood pressure was 129/74, temperature was 98.5, respiratory rate was 16, and oxygen saturation was 95% on room air. HEENT: Showed normocephalic, atraumatic. NECK: Supple. HEART: Showed normal first and second heart sounds. No gallop, rub or murmur. CHEST: Clear to auscultation. No crepitation or rhonchi. ABDOMEN: Distended. Tenderness mostly in the epigastric and right upper quadrant with positive Franco's sign. No guarding or rigidity. No organomegaly. All hernial orifice intact. Bowel sounds normal. NEUROLOGIC: She is awake, alert, responding appropriately. All cranial nerves intact. She moves extremities without difficulty. She ambulates with a walker. Her COVID-19 by PCR was negative. LABORATORY DATA: Her most recent chemistry was done on 01/30 and it showed that her liver enzymes at that time were normal. She has chronic kidney disease, but all her other labs are normal. Her white cell count was 6200, hemoglobin 12, hematocrit 36, MCV 92, and platelet count 224,000. Urinalysis was essentially unremarkable and toxicology showed that her valproic acid to be 56 mcg/mL, which is well within therapeutic range. ASSESSMENT AND PLAN: In summary, this is a 69-year-old female patient, who is complaining of epigastric and right upper quadrant pain, likely due to acute cholecystitis versus pancreatitis. PLAN: My plan is to arrange for her lab work and also abdominal ultrasound tomorrow after being kept fasting for midnight tonight. Obviously, she has evidence of acute cholecystitis and might need to transfer her to [facility]. TEAGAN CARLOS MD DR: Stanton JOB#: [id number] / [id number]
[2020-02-06 16:16] VITALS: BP 134/74
--- NOTE | 2020-02-06 17:46 | NUR ---
Patient cooperative with lab during blood draw. She continues to report abdominal pain. Patient ate 100% of her dinner.
[2020-02-06 17:47] LABS: HEMATOCRIT 37.1 % (36.0-47.0); HEMOGLOBIN 12.2 g/dL (12.0-15.5); RED BLOOD COUNT 4.02 x10^6/uL (3.50-5.40); RED CELL DISTRIBUTION WIDTH 16.8 % (11.5-14.5); WHITE BLOOD COUNT 7.5 x10^3/uL (4.0-11.0)
[2020-02-06 17:54] LABS: ALBUMIN 3.3 g/dL (3.4-5.0); ALBUMIN/GLOBULIN RATIO 0.8 (1.0-1.7); CREATININE 1.5 mg/dL (0.6-1.0); GFR 34.3; POTASSIUM 4.7 mmol/L (3.5-5.1); TOTAL BILIRUBIN 0.2 mg/dL (0.2-1.0); TOTAL PROTEIN 7.2 g/dL (6.4-8.2)
--- NOTE | 2020-02-06 18:44 | NUR ---
Patient cooperative with shower and staff blow dried her hair. Patient is delusional at this time, she states she is "going to a wedding".
[2020-02-06] MEDS: ACETAMINOPHEN 325 MG TABLET PO PRN (20:29)
[2020-02-06] MEDS: DIVALPROEX ER 500 MG TAB.ER.24H PO SCH (20:29)
[2020-02-06] MEDS: OXYBUTYNIN CHLORIDE 5 MG TABLET PO SCH (20:29)
[2020-02-06] MEDS: traZODone 50 MG TABLET. PO SCH (20:30)
[2020-02-06] MEDS: risperiDONE 1 MG TABLET. PO SCH (20:30)
[2020-02-06] MEDS: risperiDONE 0.25 MG TABLET. PO SCH (20:30)
[2020-02-06] MEDS: MONTELUKAST 10 MG TABLET. PO SCH (20:30)
[2020-02-06] MEDS: PANTOPRAZOLE 40 MG TABLET. PO SCH (20:30)
[2020-02-06] MEDS: DONEPEZIL HCL 10 MG TABLET PO SCH (20:31)
--- NOTE | 2020-02-06 22:17 | PN ---
DATE: 02/06/2020 SUBJECTIVE: The patient was seen on daily rounds, covering for Dr. Tee, also discussed the patient's current behavior and problems with the staff. Also reviewed his current medications and the lab. OBSERVATION: VITAL SIGNS: Temperature 98.5, blood pressure 150/79, pulse 61, respirations 16, O2 sat 94%. GENERAL: Slept about 6 hours last night. The patient's appetite is fair. MEDICATIONS: The patient's current medications include Risperdal 0.25 mg at night plus 1 mg at night, Depakote 1500 mg at night, trazodone 50 mg at night, bupropion 300 mg daily, Aricept 10 mg at night, clonazepam 0.25 mg twice a day. The patient is not having any side effects to medications. LABORATORY DATA: The patient's BUN was 37, creatinine 1.5, glucose 138. The patient's Depakote level on 01/31/2020 was 56. The patient is currently not having any side effects. No falls. ASSESSMENT: Bipolar disorder, mixed, with psychotic features; anxiety disorder, unspecified. PLAN: Continue with the current treatment plan. LENGTH OF STAY: 5 days. STEPHANIE LI MD DR: SYLVIE/yvon JOB#: [id number] / [id number]
--- NOTE | 2020-02-06 23:41 | NUR ---
PRN tylenol was given with HS meds for pts report of abdominal and back discomfort. Meds were taken whole floated in pudding. She said that we are in [facility] in [facility]. She has been pleasant and cooperative with no behaviors tonight.
[2020-02-07] MEDS: LEVOTHYROXINE 125 MCG TABLET PO SCH (05:37)
[2020-02-07 06:30] VITALS: BP 177/69
--- NOTE | 2020-02-07 08:30 | RAD ---
EXAM: Right upper quadrant abdominal Ultrasound INDICATION: Reason: RUQ Pain / Spl. Instructions: GOING TO BE NPO AFTER MIDNIGHT / History: TECHNIQUE: Real-time ultrasound of the right upper quadrant abdomen was performed with permanent freeze-frame documentation. COMPARISON: None FINDINGS: BILIARY:?Gallbladder contains multiple gallstones and shows borderline wall thickening at 3 mm. Multiple stones are present in the body and neck, nonmobile stones identified in the gallbladder fundus. There is a positive sonographic Franco sign.. No biliary ductal dilatation. The common bile duct measures 0.4 cm. OTHER: Visualized liver and pancreas are unremarkable. Liver measures 18.6 cm in length, borderline enlarged in size. Patent, normal directional flow of the main portal vein. Right kidney measures 11.9 x 6.0 x 5.7 cm and is unremarkable.. IMPRESSION: Cholelithiasis with sonographic findings compatible with acute cholecystitis in the appropriate clinical context. Electronically signed by: Antonia Gonzalez MD (02/07/2020 8:27 AM) [id number]
--- NOTE | 2020-02-07 09:00 | NUR ---
Patient lying on her right side in bed. She reports pain 6/10 in upper abdomen going thru her back. Patient cooperative with staff, compliant with medications. She takes her medications accompanied by yogurt and followed by orange juice. She was able to have breakfast tray after ultrasound was completed. She ate well. Nurse discussed patients transfer to [place] with patient. Patient asked several questions, she continues to think that we are in [place]. No other delusions noted at this time.
[2020-02-07] MEDS: amLODIPine BESYLATE 10 MG TABLET PO SCH (09:16)
[2020-02-07] MEDS: MAGNESIUM CHLORIDE ER 64 MG TABLET.ER PO SCH (09:16)
[2020-02-07] MEDS: buPROPion XL 300 MG TAB.ER.24H. PO SCH (09:16)
[2020-02-07] MEDS: FUROSEMIDE 40 MG TABLET PO SCH (09:16)
[2020-02-07] MEDS: metFORMIN 500 MG TABLET PO SCH (09:16)
[2020-02-07] MEDS: FERROUS SULFATE 325 MG TABLET. PO SCH (09:16)
[2020-02-07] MEDS: MULTIVITAMIN with MINERAL TABLET. PO SCH (09:17)
[2020-02-07] MEDS: CALCIUM CARB/VIT D3 500/200 TABLET PO SCH (09:17)
[2020-02-07] MEDS: clonazePAM 0.5 MG TABLET PO SCH ×2 (09:17→19:54)
[2020-02-07] MEDS: hydrALAZINE 25 MG TABLET PO SCH ×3 (09:17→19:55)
[2020-02-07] MEDS: ATENOLOL 50 MG TABLET PO SCH (09:17)
[2020-02-07] MEDS: DOCUSATE SODIUM 100 MG CAPSULE PO SCH (09:17)
[2020-02-07] MEDS: POLYVINYL ALCOHOL 1.4% OPHTH SOLUTION 15ML BOTTLE. OU SCH ×2 (09:18→20:44)
[2020-02-07] MEDS: ALBUTEROL SULFATE 8GM INHALER. INH SCH ×2 (09:18→20:44)
[2020-02-07] MEDS: FLUTICASONE 50MCG/NASAL SPRAY 16GM BOTTLE. NS SCH (09:18)
--- NOTE | 2020-02-07 10:05 | NUR ---
Patient cooperative with abdominal ultrasound this morning. Dr Livingston notified of results. Order received to transfer patient to [facility] with diagnosis Biliary Colic. DPOA notified of transfer and circumstances. DPOA asked to be notified of patients room number and [facility] contact information once this nurse obtains it from warehouse trainer.
[2020-02-07] MEDS ORDERED: HYDR-2868 PO (11:24)
[2020-02-07] MEDS ORDERED: TRAZ-120 PO ×2 (11:28)
[2020-02-07] MEDS ORDERED: OLAN5TAB99 PO (11:33)
[2020-02-07] MEDS ORDERED: RISP0.5T3 PO (11:34)
[2020-02-07] MEDS ORDERED: RISP1TAB3 PO (11:35)
--- NOTE | 2020-02-07 11:36 | DS ---
DATE OF DISCHARGE: 02/07/2020 ATTENDING PHYSICIAN: Dr. Tee. FINAL DISCHARGE DIAGNOSES: 1. Acute cholecystitis. 2. Cholelithiasis. 3. Bipolar disorder with behavior issues. 4. Moderate dementia. 5. Type 2 diabetes mellitus. 6. Essential hypertension. 7. Degenerative arthritis. 8. History of posttraumatic stress disorder. 9. Remote history of heart disease. HISTORY OF PRESENT ILLNESS: This is a 69-year-old female sent here from [place], [place], because of increasing mood swings, little bit of katlin, she has bipolar disorder. During the course of hospitalization, she had a new onset of right upper quadrant pain. Ultrasound demonstrated multiple stones and evidence of acute cholecystitis. PHYSICAL EXAMINATION: Please see the dictated note. PERTINENT LABORATORY AND X-RAY STUDIES: Please refer to the database. Hemoglobin prior to discharge was 12.2 g/dL with white count of 7500. Electrolytes within normal range. Nonfasting blood sugar 138. Transaminases within normal range. COURSE IN THE HOSPITAL: The patient was seen initially for medical consultation. She was asymptomatic. She was stable. She did have daily followup visit regarding her impulse control and her psychiatric issues. On the 14th hospital day, she had evidence of right upper quadrant pain. Dr. Caraballo had seen her. Ultrasound demonstrated multiple stones in the gallbladder, borderline wall thickening, many stones are present in the body and neck identified in the gallbladder fundus. The patient was initially seen and treated by Dr. Caraballo because of the presence of gallstones. Dr. Caraballo at [facility] would be happy to accept the patient in transfer. Arrangements were then made for the patient to go to [facility] by secure transport for further evaluation and most likely surgical treatment of acute cholecystitis and cholelithiasis. Her discharge meds will include all her psychiatric meds here including the following: She should continue her Tylenol, albuterol, amlodipine 10 mg daily, Tenormin 50 mg daily, Wellbutrin 300 mg daily, calcium carbonate, clonazepam 0.25 mg b.i.d. p.r.n., Depakote 1250 at bedtime, docusate, Aricept, Lexapro 20 mg daily, ferrous sulfate, fluticasone propionate, daily thyroid replacement, magnesium, metformin, montelukast, multivitamin, and MiraLax. Her prognosis is guarded. She has a DNR per advanced directives. The patient was then transferred from our hospitalist at [facility] for further treatment and evaluation of acute cholecystitis and cholelithiasis. ZAHRA BARBOUR MD DR: JULI/yvon JOB#: [id number] / [id number] JABARI Khan MD, AHMED MD
[2020-02-07] MEDS ORDERED: MAGN24003 PO (11:41)
[2020-02-07] MEDS ORDERED: METH57CR17 TP (11:45)
[2020-02-07] MEDS: ACETAMINOPHEN 325 MG TABLET PO PRN (12:55)
--- NOTE | 2020-02-07 13:03 | NUR ---
Patient is laying in bed on her right side. She reports pain 6/10 in her right upper abdominal quadrant. PRN acetaminophen give per order for pain. Will continue to monitor.
--- NOTE | 2020-02-07 15:43 | NUR ---
Dr. Caraballo had Dr Maki (surgeon) review ultrasound results. Dr. Maki stated that the surgery could be performed on an outpatient basis at some point next week. Dr Caraballo gave orders for oxycodone for pain, colace and miralax. Dr Caraballo stated that if patient develops fever, worsening pain, stops eating or begins vomiting to contact him immediately and the surgery can be scheduled as an emergency surgery. DPOA, Comfort Galindo notified as to change of plans.
[2020-02-07 16:03] VITALS: BP 142/81
[2020-02-07] MEDS: risperiDONE 0.25 MG TABLET. PO SCH (19:53)
[2020-02-07] MEDS: DONEPEZIL HCL 10 MG TABLET PO SCH (19:54)
[2020-02-07] MEDS: PANTOPRAZOLE 40 MG TABLET. PO SCH (19:54)
[2020-02-07] MEDS: risperiDONE 1 MG TABLET. PO SCH (19:54)
[2020-02-07] MEDS: traZODone 50 MG TABLET. PO SCH (19:54)
[2020-02-07] MEDS: DIVALPROEX ER 500 MG TAB.ER.24H PO SCH (19:54)
[2020-02-07] MEDS: MONTELUKAST 10 MG TABLET. PO SCH (19:55)
[2020-02-07] MEDS: OXYBUTYNIN CHLORIDE 5 MG TABLET PO SCH (19:55)
--- NOTE | 2020-02-07 21:51 | PN ---
DATE: 02/07/2020 SUBJECTIVE: The patient was seen today on tele rounds. Discussed with the staff, reviewed his progress and the treatment plan. Staff reports the patient apparently having abdominal pain. Apparently, she had an ultrasound. Apparently, she is having gallbladder problems. She is on the waiting list to be transferred to [place] for further workup. OBSERVATION: VITAL SIGNS: Temperature 97.6, blood pressure 137/69, pulse 54, respirations 24, and O2 sat 96%. She slept for about 6 hours last night. The patient's appetite is fair. The patient's behavior remains the same. No major change. MEDICATIONS: The patient's current medications include Risperdal 0.25 mg at night and 1 mg at night, Depakote 1500 mg at night, trazodone 50 mg at night, bupropion 300 mg daily, Aricept 10 mg at night, and clonazepam 0.25 mg twice a day. The patient denies of any side effects. LABORATORY DATA: The patient's lab reviewed. ASSESSMENT: 1. Bipolar disorder, mixed, with psychotic features. 2. Anxiety disorder, unspecified. PLAN: To continue with the treatment. LENGTH OF STAY: 5 days. STEPHANIE LI MD DR: SYLVIE/yvon JOB#: [id number] / [id number]
--- NOTE | 2020-02-08 | NUR ---
Last evening pt was in the howard or her room she took meds without difficulty. She said her abdomen is not bothering her as much tonight and that she has been eating differently and thinks it is helping. PRN pain med offered which she declined. Since going to bed she has appeared to sleep well. No behaviors tonight and said we are in [place] tonight.
[2020-02-08] MEDS: LEVOTHYROXINE 125 MCG TABLET PO SCH (05:53)
[2020-02-08 06:39] VITALS: BP 169/81
--- NOTE | 2020-02-08 08:53 | NUR ---
Spoke with Dr Livingston regarding patients acute cholecystitis. He recommended changing patients diet to Low Fat. It will now be Low Fat and PRASHANT. Addendum: 02/08/20 at 0856 by ANGELES DEVINE RN web services architect department notified via phone. 02/08/20 [id number].
[2020-02-08] MEDS: ALBUTEROL SULFATE 8GM INHALER. INH SCH ×2 (09:15→20:29)
[2020-02-08] MEDS: FLUTICASONE 50MCG/NASAL SPRAY 16GM BOTTLE. NS SCH (09:15)
[2020-02-08] MEDS: buPROPion XL 300 MG TAB.ER.24H. PO SCH (09:15)
[2020-02-08] MEDS: MULTIVITAMIN with MINERAL TABLET. PO SCH (09:15)
[2020-02-08] MEDS: DOCUSATE SODIUM 100 MG CAPSULE PO SCH (09:15)
[2020-02-08] MEDS: FUROSEMIDE 40 MG TABLET PO SCH (09:15)
[2020-02-08] MEDS: MAGNESIUM CHLORIDE ER 64 MG TABLET.ER PO SCH (09:16)
[2020-02-08] MEDS: amLODIPine BESYLATE 10 MG TABLET PO SCH (09:16)
[2020-02-08] MEDS: CALCIUM CARB/VIT D3 500/200 TABLET PO SCH (09:16)
[2020-02-08] MEDS: metFORMIN 500 MG TABLET PO SCH (09:16)
[2020-02-08] MEDS: ATENOLOL 50 MG TABLET PO SCH (09:17)
[2020-02-08] MEDS: FERROUS SULFATE 325 MG TABLET. PO SCH (09:17)
[2020-02-08] MEDS: hydrALAZINE 25 MG TABLET PO SCH ×3 (09:17→20:31)
[2020-02-08] MEDS: POLYVINYL ALCOHOL 1.4% OPHTH SOLUTION 15ML BOTTLE. OU SCH ×2 (09:18→20:29)
[2020-02-08] MEDS: clonazePAM 0.5 MG TABLET PO SCH ×2 (09:19→20:30)
[2020-02-08] MEDS: POLYETHYLENE GLYCOL 3350 17 GM PACKET. PO SCH (09:19)
--- NOTE | 2020-02-08 11:28 | NUR ---
Patient is more active today. She was observed coloring a page and listening to music. Patient appears to be able to sit and lay down with no indication of pain. She stated that she has "changed her diet" she is eating less and no longer drinking apple juice. Dr Livingston gave order to change patients diet to low fat. Patient denied delusions when asked and seems to be oriented x4 today. She was compliant with medications and took them whole, floated in yogurt and followed by apple juice.
[2020-02-08] MEDS: ACETAMINOPHEN 325 MG TABLET PO PRN ×2 (14:57→23:22)
--- NOTE | 2020-02-08 15:04 | NUR ---
Patient reported back pain 09/14. PRN Tylenol given for pain per order. Patient is upset that she cannot sing karaoke because we don't offer it here right now. Patient has tablet with music in her room but states she needs it louder and needs a tv for the words to sing. This RN told patient that we would normally have activities but because of COVID precautions, we cannot have them at this time.
[2020-02-08 15:48] VITALS: BP 120/73
--- NOTE | 2020-02-08 18:22 | NUR ---
Patient is delusional. She asked nurse to get her a dress to wear to the [facility] She also asked nurse to print the words to "When You Say Nothing At All" so she could sing it at the ceremony. Patient is in her room putting hand lotion on and reading the words to the song to practice.
[2020-02-08] MEDS: OXYBUTYNIN CHLORIDE 5 MG TABLET PO SCH (20:29)
[2020-02-08] MEDS: risperiDONE 1 MG TABLET. PO SCH (20:30)
[2020-02-08] MEDS: risperiDONE 0.25 MG TABLET. PO SCH (20:30)
[2020-02-08] MEDS: MONTELUKAST 10 MG TABLET. PO SCH (20:30)
[2020-02-08] MEDS: oxyCODONE/APAP 5/325 1 TAB TABLET PO PRN (20:31)
[2020-02-08] MEDS: DIVALPROEX ER 500 MG TAB.ER.24H PO SCH (20:31)
[2020-02-08] MEDS: DONEPEZIL HCL 10 MG TABLET PO SCH (20:31)
[2020-02-08] MEDS: traZODone 50 MG TABLET. PO SCH (20:32)
[2020-02-08] MEDS: PANTOPRAZOLE 40 MG TABLET. PO SCH (20:32)
--- NOTE | 2020-02-08 23:35 | NUR ---
PRN pain meds have been given for complaint of pain Left side of face. She does not recall any injury to the area. It appears swollen with no bruising or sign of trauma. It is very painful for her to open her mouth so unable to visualize area. Ice bag provided along with pain med.
--- NOTE | 2020-02-09 00:29 | PN ---
DATE: 02/08/2020 SUBJECTIVE: The patient was evaluated by tele health rounds, met with staff and reviewed the nurses report. MEDICATIONS: The patient is currently on Risperdal 0.25 mg at night and 1 mg at night, Depakote 150 mg at night, trazodone 50 mg at night, bupropion 300 mg daily, Aricept 10 mg at night, and clonazepam 0.25 mg twice a day. She has no major side effects. LABORATORY DATA: The patient's lab reviewed. ASSESSMENT: 1. Bipolar disorder, mixed, with psychotic features. 2. Anxiety disorder, unspecified. PLAN: To continue with the treatment. LENGTH OF STAY: 5 days. STEPHANIE LI MD DR: SYLVIE/yvon JOB#: [id number] / [id number] SHRADDHA
[2020-02-09] MEDS: oxyCODONE/APAP 5/325 1 TAB TABLET PO PRN (00:41)
[2020-02-09] MEDS: ACETAMINOPHEN 325 MG TABLET PO PRN (03:43)
[2020-02-09] MEDS: LEVOTHYROXINE 125 MCG TABLET PO SCH (03:43)
[2020-02-09 05:46] VITALS: BP 167/78
[2020-02-09] MEDS: FUROSEMIDE 40 MG TABLET PO SCH (07:54)
[2020-02-09] MEDS: POLYETHYLENE GLYCOL 3350 17 GM PACKET. PO SCH (07:54)
[2020-02-09] MEDS: MAGNESIUM CHLORIDE ER 64 MG TABLET.ER PO SCH (07:55)
[2020-02-09] MEDS: metFORMIN 500 MG TABLET PO SCH (07:55)
[2020-02-09] MEDS: FERROUS SULFATE 325 MG TABLET. PO SCH (07:55)
[2020-02-09] MEDS: amLODIPine BESYLATE 10 MG TABLET PO SCH (07:55)
[2020-02-09] MEDS: DOCUSATE SODIUM 100 MG CAPSULE PO SCH (07:55)
[2020-02-09] MEDS: CALCIUM CARB/VIT D3 500/200 TABLET PO SCH (07:55)
[2020-02-09] MEDS: buPROPion XL 300 MG TAB.ER.24H. PO SCH (07:55)
[2020-02-09] MEDS: MULTIVITAMIN with MINERAL TABLET. PO SCH (07:56)
[2020-02-09] MEDS: ALBUTEROL SULFATE 8GM INHALER. INH SCH ×2 (07:56→20:24)
[2020-02-09] MEDS: hydrALAZINE 25 MG TABLET PO SCH ×3 (07:56→20:24)
[2020-02-09] MEDS: ATENOLOL 50 MG TABLET PO SCH (07:56)
[2020-02-09] MEDS: POLYVINYL ALCOHOL 1.4% OPHTH SOLUTION 15ML BOTTLE. OU SCH ×2 (07:57→20:23)
[2020-02-09] MEDS: clonazePAM 0.5 MG TABLET PO SCH ×2 (07:59→20:28)
--- NOTE | 2020-02-09 09:30 | NUR ---
Covid and rapid done and sent to lab.
--- NOTE | 2020-02-09 11:11 | NUR ---
SHAKA returned call to LARS Aguirre at [facility], and provided an update including that [facility] is under quarantine thru 02/18/20 and can not discharge patients until 02/19/20. Explained to Carla that quarantine date will be adjusted if any other patients should test positive for Covid. Reviewed that Sugar is averaging 100% of meal intakes, 6 hours of sleep at night, continues with delusions, and has been diagnosed with gall stones with out patient surgery scheduled for next week. Faxed current notes, labs, and medication list to Carla for review.
--- NOTE | 2020-02-09 11:30 | NUR ---
Pt unable to open her mouth to visually see teeth. Point pain at mandible joint. Moderate size swollen lymph node mid neck on left. Face swollen. Pt has her own teeth. Pt doesn't recall when she has been to the dentist last. Dr Livingston notified. Order for Cleocin x 5 days.
[2020-02-09] MEDS: CLINDAMYCIN HCL 150 MG CAPSULE PO SCH ×2 (12:30→20:26)
[2020-02-09 16:03] VITALS: BP 156/82
[2020-02-09] MEDS: DONEPEZIL HCL 10 MG TABLET PO SCH (20:24)
[2020-02-09] MEDS: traZODone 50 MG TABLET. PO SCH (20:25)
[2020-02-09] MEDS: DIVALPROEX ER 500 MG TAB.ER.24H PO SCH (20:26)
[2020-02-09] MEDS: MONTELUKAST 10 MG TABLET. PO SCH (20:26)
[2020-02-09] MEDS: PANTOPRAZOLE 40 MG TABLET. PO SCH (20:27)
[2020-02-09] MEDS: risperiDONE 0.25 MG TABLET. PO SCH (20:27)
[2020-02-09] MEDS: OXYBUTYNIN CHLORIDE 5 MG TABLET PO SCH (20:27)
[2020-02-09] MEDS: risperiDONE 1 MG TABLET. PO SCH (20:28)
--- NOTE | 2020-02-09 22:00 | NUR ---
Patient is in her room on assumption of care. She is sleeping but wakes to her name. Calm, cooperative and compliant with assessments and medications taken whole floated in yogurt. No agitation. No delusions voiced so far this shift. Patient denies any pain or discomfort. She appears to be sleeping comfortably at present time.
[2020-02-10] MEDS: oxyCODONE/APAP 5/325 1 TAB TABLET PO PRN (03:29)
--- NOTE | 2020-02-10 03:38 | NUR ---
Patient complaining of 7/10 left sided facial pain. PRN Oxycodone given at 0330, pending effect. Will continue to monitor.
[2020-02-10] MEDS: LEVOTHYROXINE 125 MCG TABLET PO SCH (05:40)
[2020-02-10 06:04] VITALS: BP 129/72
--- NOTE | 2020-02-10 07:39 | PN ---
DATE: 02/09/2020 SUBJECTIVE: The patient was seen today, met with the staff, chart reviewed. The patient was evaluated by telehealth. The patient is still confused, restless, still delusional. Patient apparently not presenting with any other major behavior problems. OBSERVATIONS: VITAL SIGNS: Temperature 97.5, blood pressure 167/78, pulse 74, respirations 18, O2 sat 98%. GENERAL: Slept about 3 hours last night. MEDICATIONS: The patient's current medications include Risperdal 0.25 mg at night and 1 mg at night, Depakote 150 mg at night, trazodone 50 mg at night, bupropion 300 mg daily, Aricept 10 mg at night, clonazepam 0.25 mg twice a day, not having any side effects. The patient also on clindamycin. ASSESSMENT: 1. Bipolar disorder, mixed, with psychotic features. 2. Anxiety disorder, unspecified. PLAN: Continue with the treatment. LENGTH OF STAY: 5 days. STEPHANIE LI MD DR: SYLVIE/yvon JOB#: [id number] / [id number] SHRADDHA
[2020-02-10] MEDS: POLYVINYL ALCOHOL 1.4% OPHTH SOLUTION 15ML BOTTLE. OU SCH ×2 (07:50→20:27)
[2020-02-10] MEDS: ALBUTEROL SULFATE 8GM INHALER. INH SCH ×2 (07:50→20:27)
[2020-02-10] MEDS: FERROUS SULFATE 325 MG TABLET. PO SCH (07:51)
[2020-02-10] MEDS: buPROPion XL 300 MG TAB.ER.24H. PO SCH (07:51)
[2020-02-10] MEDS: CLINDAMYCIN HCL 150 MG CAPSULE PO SCH ×2 (07:51→20:28)
[2020-02-10] MEDS: MAGNESIUM CHLORIDE ER 64 MG TABLET.ER PO SCH (07:51)
[2020-02-10] MEDS: POLYETHYLENE GLYCOL 3350 17 GM PACKET. PO SCH (07:51)
[2020-02-10] MEDS: metFORMIN 500 MG TABLET PO SCH (07:51)
[2020-02-10] MEDS: FLUTICASONE 50MCG/NASAL SPRAY 16GM BOTTLE. NS SCH (07:51)
[2020-02-10] MEDS: MULTIVITAMIN with MINERAL TABLET. PO SCH (07:52)
[2020-02-10] MEDS: DOCUSATE SODIUM 100 MG CAPSULE PO SCH (07:52)
[2020-02-10] MEDS: CALCIUM CARB/VIT D3 500/200 TABLET PO SCH (07:52)
[2020-02-10] MEDS: ATENOLOL 50 MG TABLET PO SCH (07:52)
[2020-02-10] MEDS: FUROSEMIDE 40 MG TABLET PO SCH (07:52)
[2020-02-10] MEDS: amLODIPine BESYLATE 10 MG TABLET PO SCH (07:52)
[2020-02-10] MEDS: hydrALAZINE 25 MG TABLET PO SCH ×3 (07:53→20:30)
[2020-02-10] MEDS: LACTOBACILLUS RHAMNOSUS GG 1 CAPSULE. PO SCH ×2 (07:54→20:29)
[2020-02-10] MEDS: clonazePAM 0.5 MG TABLET PO SCH ×2 (07:55→20:32)
[2020-02-10 16:14] VITALS: BP 157/80
--- NOTE | 2020-02-10 16:47 | NUR ---
Pt up in room for meals. Has been calm today. Still delusional. Thinks her R arm, R side and R hip are broken and that is why she wasn't able to walk well last noc. Has been compliant with meds and cares. L face less swollen and less painful per pt.
[2020-02-10] MEDS: DONEPEZIL HCL 10 MG TABLET PO SCH (20:28)
[2020-02-10] MEDS: traZODone 50 MG TABLET. PO SCH (20:30)
[2020-02-10] MEDS: risperiDONE 1 MG TABLET. PO SCH (20:30)
[2020-02-10] MEDS: MONTELUKAST 10 MG TABLET. PO SCH (20:30)
[2020-02-10] MEDS: OXYBUTYNIN CHLORIDE 5 MG TABLET PO SCH (20:31)
[2020-02-10] MEDS: risperiDONE 0.25 MG TABLET. PO SCH (20:31)
[2020-02-10] MEDS: PANTOPRAZOLE 40 MG TABLET. PO SCH (20:31)
[2020-02-10] MEDS: DIVALPROEX ER 500 MG TAB.ER.24H PO SCH (20:32)
--- NOTE | 2020-02-10 21:10 | NUR ---
Patient is in her room on assumption of care, awake in bed. Calm, cooperative and compliant with assessments and medications taken whole floated in yogurt. No agitation. States "My fiance is coming tomorrow. He's older...just a little bit. I don't know what he looks like though. He is going to bring me a ring." Cooperative with HS cares and shower. Patient denies any pain or discomfort at present time.
[2020-02-11] MEDS: LEVOTHYROXINE 125 MCG TABLET PO SCH (05:27)
[2020-02-11 06:09] VITALS: BP 119/71
[2020-02-11] MEDS: LACTOBACILLUS RHAMNOSUS GG 1 CAPSULE. PO SCH ×2 (07:48→19:58)
[2020-02-11] MEDS: MAGNESIUM CHLORIDE ER 64 MG TABLET.ER PO SCH (07:48)
[2020-02-11] MEDS: FERROUS SULFATE 325 MG TABLET. PO SCH (07:48)
[2020-02-11] MEDS: FUROSEMIDE 40 MG TABLET PO SCH (07:48)
[2020-02-11] MEDS: POLYETHYLENE GLYCOL 3350 17 GM PACKET. PO SCH (07:48)
[2020-02-11] MEDS: CALCIUM CARB/VIT D3 500/200 TABLET PO SCH (07:48)
[2020-02-11] MEDS: buPROPion XL 300 MG TAB.ER.24H. PO SCH (07:48)
[2020-02-11] MEDS: hydrALAZINE 25 MG TABLET PO SCH ×3 (07:49→19:58)
[2020-02-11] MEDS: amLODIPine BESYLATE 10 MG TABLET PO SCH (07:49)
[2020-02-11] MEDS: DOCUSATE SODIUM 100 MG CAPSULE PO SCH (07:49)
[2020-02-11] MEDS: ATENOLOL 50 MG TABLET PO SCH (07:49)
[2020-02-11] MEDS: CLINDAMYCIN HCL 150 MG CAPSULE PO SCH ×2 (07:49→19:57)
[2020-02-11] MEDS: MULTIVITAMIN with MINERAL TABLET. PO SCH (07:50)
[2020-02-11] MEDS: metFORMIN 500 MG TABLET PO SCH (07:50)
[2020-02-11] MEDS: POLYVINYL ALCOHOL 1.4% OPHTH SOLUTION 15ML BOTTLE. OU SCH ×2 (07:50→19:55)
[2020-02-11] MEDS: ALBUTEROL SULFATE 8GM INHALER. INH SCH ×2 (07:50→19:55)
[2020-02-11] MEDS: FLUTICASONE 50MCG/NASAL SPRAY 16GM BOTTLE. NS SCH (07:50)
[2020-02-11] MEDS: clonazePAM 0.5 MG TABLET PO SCH ×2 (07:53→20:00)
--- NOTE | 2020-02-11 09:14 | PN ---
DATE: 02/10/2020 This is a late entry. SUBJECTIVE: The patient was seen by the telehealth rounds, met with the staff, chart reviewed and also covering for Dr. Tee. Staff reports increased confusion, restlessness, still delusional. OBSERVATION: VITAL SIGNS: Temperature 98.7, blood pressure 129/72, pulse 62, respirations 18, O2 sat 94%. GENERAL: Slept about 7 hours last night. The patient's appetite is fair. MEDICATIONS: The patient's current medications include Risperdal 0.25 mg at night and 1 mg at night, Depakote 150 mg at night, trazodone 50 mg at night, bupropion 300 mg daily, Aricept 10 mg at night, and clonazepam 0.25 mg twice a day. The patient is not exhibiting any side effects of sedation. ASSESSMENT: 1. Bipolar disorder, mixed with psychotic features. 2. Anxiety disorder, unspecified. PLAN: To continue with the treatment. LENGTH OF STAY: 5-7 days. STEPHANIE LI MD DR: SYLVIE/yvon JOB#: [id number] / [id number] SHRADDHA
--- NOTE | 2020-02-11 12:13 | PN ---
DATE: 02/11/2020 SUBJECTIVE: The patient was seen today, met with the staff, chart reviewed. The patient was seen by telehealth rounds. Staff reports that she is still delusional, having difficulty walking at times, and continues to complain of knee pain. The patient is also having difficulty to follow directions, impaired executive functioning. OBSERVATION: VITAL SIGNS: Temperature 98.0, blood pressure 119/71, pulse 58, respirations 16, O2 sat 96%. She slept about 4 hours last night. The patient is not having any major medical issues, no side effects. CURRENT MEDICATIONS: Includes Risperdal 0.25 mg at night and 1 mg at night, Depakote 500 mg at night, bupropion 300 mg daily, trazodone 50 mg at night and Aricept 10 mg at night, and clonazepam 0.25 mg b.i.d. She is not having any side effects from the Klonopin. No sedation. The patient is not presenting with any other behavior problems. ASSESSMENT: 1. Bipolar disorder, mixed, with psychotic features. 2. Anxiety disorder, unspecified. PLAN: To continue with the treatment. LENGTH OF STAY: 5-7 days. STEPHANIE LI MD DR: SYLVIE/yvon JOB#: [id number] / [id number] SHRADDHA
[2020-02-11 16:25] VITALS: BP 107/63
--- NOTE | 2020-02-11 17:23 | NUR ---
Pt has been up for meals in room. Has been compliant with meds and cares. Up in day room for short time with staff. Pt wearing mask. Pt has voiced no delusions this shift.
[2020-02-11] MEDS: risperiDONE 0.25 MG TABLET. PO SCH (19:55)
[2020-02-11] MEDS: OXYBUTYNIN CHLORIDE 5 MG TABLET PO SCH (19:56)
[2020-02-11] MEDS: risperiDONE 1 MG TABLET. PO SCH (19:56)
[2020-02-11] MEDS: DONEPEZIL HCL 10 MG TABLET PO SCH (19:57)
[2020-02-11] MEDS: MONTELUKAST 10 MG TABLET. PO SCH (19:57)
[2020-02-11] MEDS: PANTOPRAZOLE 40 MG TABLET. PO SCH (19:59)
[2020-02-11] MEDS: traZODone 50 MG TABLET. PO SCH (19:59)
[2020-02-11] MEDS: DIVALPROEX ER 500 MG TAB.ER.24H PO SCH (19:59)
[2020-02-11 20:25] VITALS: BP 136/66
--- NOTE | 2020-02-11 20:51 | NUR ---
Patient is in her room on assumption of care. She is sitting on the side of her bed, coloring. Calm, cooperative and compliant with assessments and medications taken whole floated in yogurt. No agitation. No delusions voiced so far this shift. Patient denies any pain or discomfort at present time.
[2020-02-12] MEDS: LEVOTHYROXINE 125 MCG TABLET PO SCH (05:16)
[2020-02-12 05:53] VITALS: BP 139/72
[2020-02-12] MEDS: POLYVINYL ALCOHOL 1.4% OPHTH SOLUTION 15ML BOTTLE. OU SCH ×2 (09:48→20:33)
[2020-02-12] MEDS: CLINDAMYCIN HCL 150 MG CAPSULE PO SCH ×2 (09:49→20:34)
[2020-02-12] MEDS: FLUTICASONE 50MCG/NASAL SPRAY 16GM BOTTLE. NS SCH (09:49)
[2020-02-12] MEDS: POLYETHYLENE GLYCOL 3350 17 GM PACKET. PO SCH (09:49)
[2020-02-12] MEDS: ALBUTEROL SULFATE 8GM INHALER. INH SCH ×2 (09:49→20:33)
[2020-02-12] MEDS: buPROPion XL 300 MG TAB.ER.24H. PO SCH (09:50)
[2020-02-12] MEDS: MAGNESIUM CHLORIDE ER 64 MG TABLET.ER PO SCH (09:50)
[2020-02-12] MEDS: metFORMIN 500 MG TABLET PO SCH (09:50)
[2020-02-12] MEDS: DOCUSATE SODIUM 100 MG CAPSULE PO SCH (09:50)
[2020-02-12] MEDS: LACTOBACILLUS RHAMNOSUS GG 1 CAPSULE. PO SCH ×2 (09:50→20:33)
[2020-02-12] MEDS: hydrALAZINE 25 MG TABLET PO SCH ×3 (09:50→20:35)
[2020-02-12] MEDS: amLODIPine BESYLATE 10 MG TABLET PO SCH (09:50)
[2020-02-12] MEDS: clonazePAM 0.5 MG TABLET PO SCH ×2 (09:51→20:35)
[2020-02-12] MEDS: CALCIUM CARB/VIT D3 500/200 TABLET PO SCH (09:51)
[2020-02-12] MEDS: FUROSEMIDE 40 MG TABLET PO SCH (09:51)
[2020-02-12] MEDS: MULTIVITAMIN with MINERAL TABLET. PO SCH (09:51)
[2020-02-12] MEDS: ATENOLOL 50 MG TABLET PO SCH (09:51)
[2020-02-12] MEDS: FERROUS SULFATE 325 MG TABLET. PO SCH (09:52)
--- NOTE | 2020-02-12 11:30 | NUR ---
Patient was laying on her bed when nurse entered room for medication administration and assessment. Patient continued to lay on bed although she was aware nurse was in the room. Nurse asked patient to sit up to take medications, patient continued to lay on bed. When patient eventually sat up she expressed displeasure that the unit is out of yogurt and she had to take her medications with pudding. Patient is on antibiotic for possible tooth abscess, she denies mouth pain when asked. Patient also denied abdominal pain when asked. Patient has made many requests this morning. As nurse left room patient asked for Gatorade. Nurse brought Gatorade and then patient stated "any color but yellow", nurse had grabbed yellow and went back to dining room to exchange it for blue. When nurse arrived at room with Gatorade, patient asked for a newspaper. Newspaper provided to patient, she then asked for a glass of ice. Thinking patient was lonely and attentions seeking, this nurse sat in patients room. Patient did not seem to want to talk and laid back down on her bed. Patient did not voice any delusional statements and denied delusions when asked by this nurse. Patient was outside with rec therapy later this morning. She seemed to enjoy it.
[2020-02-12 14:56] VITALS: BP 120/65
[2020-02-12 16:08] VITALS: BP 120/65
--- NOTE | 2020-02-12 19:59 | PN ---
DATE: 02/12/2020 SUBJECTIVE: The patient was seen today on telehealth rounds, met with the staff, and chart reviewed. The patient has not presented with any major behavior problems today. The patient still has hearing loss. She is able to walk with a walker. OBSERVATION: VITAL SIGNS: Stable. GENERAL: Appetite fair. Slept about 9-1/2 hours last night. CURRENT MEDICATIONS: The patient's current medications include Risperdal 0.25 mg plus 1 mg at night, Depakote 500 mg at night, bupropion 300 mg daily, trazodone 50 mg at night and Aricept 10 mg at night, and clonazepam 0.25 mg twice a day. ASSESSMENT: 1. Bipolar disorder, mixed, with psychotic features. 2. Anxiety disorder, unspecified. PLAN: To continue with the treatment. LENGTH OF STAY: 5-7 days. STEPHANIE LI MD DR: SYLVIE/yvon JOB#: [id number] / [id number]
[2020-02-12] MEDS: DIVALPROEX ER 500 MG TAB.ER.24H PO SCH (20:34)
[2020-02-12] MEDS: DONEPEZIL HCL 10 MG TABLET PO SCH (20:34)
[2020-02-12] MEDS: MONTELUKAST 10 MG TABLET. PO SCH (20:34)
[2020-02-12] MEDS: PANTOPRAZOLE 40 MG TABLET. PO SCH (20:35)
[2020-02-12] MEDS: traZODone 50 MG TABLET. PO SCH (20:35)
[2020-02-12] MEDS: OXYBUTYNIN CHLORIDE 5 MG TABLET PO SCH (20:35)
[2020-02-12] MEDS: risperiDONE 1 MG TABLET. PO SCH (20:35)
[2020-02-12] MEDS: risperiDONE 0.25 MG TABLET. PO SCH (20:35)
--- NOTE | 2020-02-12 23:17 | NUR ---
Pt has been in her room or howard tonight. She has been pleasant and cooperative. Meds were taken whole floated in pudding. She denies pain but reports fullness of upper abdomen. Denies pain of L side of face and swelling is lessened tonight.
[2020-02-13] MEDS: LEVOTHYROXINE 125 MCG TABLET PO SCH (05:36)
[2020-02-13 06:00] VITALS: BP 144/66
[2020-02-13] MEDS: FLUTICASONE 50MCG/NASAL SPRAY 16GM BOTTLE. NS SCH (08:46)
[2020-02-13] MEDS: ALBUTEROL SULFATE 8GM INHALER. INH SCH ×2 (08:46→20:51)
[2020-02-13] MEDS: FUROSEMIDE 40 MG TABLET PO SCH (08:47)
[2020-02-13] MEDS: CLINDAMYCIN HCL 150 MG CAPSULE PO SCH ×2 (08:47→20:50)
[2020-02-13] MEDS: POLYVINYL ALCOHOL 1.4% OPHTH SOLUTION 15ML BOTTLE. OU SCH ×2 (08:47→20:50)
[2020-02-13] MEDS: metFORMIN 500 MG TABLET PO SCH (08:47)
[2020-02-13] MEDS: POLYETHYLENE GLYCOL 3350 17 GM PACKET. PO SCH (08:47)
[2020-02-13] MEDS: clonazePAM 0.5 MG TABLET PO SCH (08:48)
[2020-02-13] MEDS: LACTOBACILLUS RHAMNOSUS GG 1 CAPSULE. PO SCH ×2 (08:48→20:50)
[2020-02-13] MEDS: amLODIPine BESYLATE 10 MG TABLET PO SCH (08:48)
[2020-02-13] MEDS: ATENOLOL 50 MG TABLET PO SCH (08:49)
[2020-02-13] MEDS: MAGNESIUM CHLORIDE ER 64 MG TABLET.ER PO SCH (08:49)
[2020-02-13] MEDS: DOCUSATE SODIUM 100 MG CAPSULE PO SCH (08:49)
[2020-02-13] MEDS: hydrALAZINE 25 MG TABLET PO SCH ×3 (08:49→20:49)
[2020-02-13] MEDS: buPROPion XL 300 MG TAB.ER.24H. PO SCH (08:49)
[2020-02-13] MEDS: FERROUS SULFATE 325 MG TABLET. PO SCH (08:49)
[2020-02-13] MEDS: MULTIVITAMIN with MINERAL TABLET. PO SCH (08:49)
[2020-02-13] MEDS: CALCIUM CARB/VIT D3 500/200 TABLET PO SCH (08:51)
--- NOTE | 2020-02-13 09:26 | NUR ---
Patient had an incontinent episode in her bed and on the floor this morning. This is unusual for her, she is usually continent with only dribbling at times. Staff has reported to this nurse that patient is putting Kleenexes in her brief. Patient denied pain with urination when asked by this nurse, no increased frequency noted. Will obtain urine sample for UA, culture if needed.
--- NOTE | 2020-02-13 10:43 | NUR ---
Patient appears to be having auditory hallucinations. She asked this nurse why there was a baby crying. Nurse stated that she didn't hear the baby crying. Patient compliant with medications. Patient asking if nurse would be singing or playing the guitar and stated that she wants to go outside. The weather is forecasting rain so we will probably not go outside, patient was advised group would start at 1100. Patient compliant with medications taken whole in yogurt. Miralax given dissolved in applejuice. Patient has beenusing a lot of kleenex and seems to be hoarding paper cups and pill cups. Nurse removed all used paper items from patients bedside table and discarded them. This did not seem to upset patient. Patient observed sitting in the hallway coloring and nurse could hear patient coughing. Patient denies sore throat and/or cough when asked. It is a non-productive, dry cough. Patient then asked if nurse could hear the small child laughing. Nurse stated she did not hear anyone laughing. Patient slept 6 hours last night. This morning she asked if we were "in [place]".
--- NOTE | 2020-02-13 12:55 | NUR ---
Patient has had two more incontinent episodes. When asked what she thinks is going on, she stated "I guess I just wait too long to go". Staff encouraged patient to get up sooner to go to the bathroom. A urine sample has been obtained and sent to the lab. If patient does not have a UTI, may need to consider a two hour toileting schedule. Will continue to monitor. Addendum: 02/13/20 at 1755 by ANGELES DEVINE RN Patients urine did not go to culture and did not indicate that she has an UTI.
[2020-02-13 13:50] LABS: BACTERIA,URINE 0 /HPF (0-FEW); BILIRUBIN,URINE NEG (NEG); CLARITY,URINE CLEAR; COLOR,URINE YELLOW; GLUCOSE,URINE NEG (NEG); NITRITE,URINE NEG (NEG); RBC,URINE OCC /HPF (0-2); SQUAMOUS EPITHELIAL CELL,UR FEW /LPF; UROBILINOGEN,URINE 0.2 mg/dL (0.2 mg/dL); WBC,URINE OCC /HPF (0-4)
[2020-02-13 14:27] VITALS: BP 112/71
[2020-02-13 15:59] VITALS: BP 110/60
[2020-02-13] MEDS: risperiDONE 1 MG TABLET. PO SCH (20:48)
[2020-02-13] MEDS: risperiDONE 0.25 MG TABLET. PO SCH (20:48)
[2020-02-13] MEDS: DIVALPROEX ER 500 MG TAB.ER.24H PO SCH (20:49)
[2020-02-13] MEDS: DONEPEZIL HCL 10 MG TABLET PO SCH (20:50)
[2020-02-13] MEDS: OXYBUTYNIN CHLORIDE 5 MG TABLET PO SCH (20:50)
[2020-02-13] MEDS: PANTOPRAZOLE 40 MG TABLET. PO SCH (20:50)
[2020-02-13] MEDS: MONTELUKAST 10 MG TABLET. PO SCH (20:50)
[2020-02-13] MEDS: traZODone 50 MG TABLET. PO SCH (20:50)
--- NOTE | 2020-02-13 22:12 | PDOC ---
Exam Note: Avni Note: Please also refer to the separate dictated note~for this date of service dictated separately.~Patient seen individually. Discussed the patient with Nursing staff reviewed the chart.~Reviewed interim history and current functioning. Reviewed vital signs,~Labs/ Radiology~and current medications noted below. Continue current treatment with the changes noted in the dictated addendum note Assessment: Vital Signs/I&O: Vital Signs Date Time Temp Pulse Resp B/P (MAP) Pulse Ox O2 Delivery O2 Flow Rate FiO2 02/13/20 20:49 61 110/60 02/13/20 19:42 98.4 97 02/13/20 15:59 18 02/13/20 14:27 Room Air I & O 02/12/20 02/12/20 02/13/20 15:00 23:00 07:00 Intake Total 720 ml 480 ml Balance 720 ml 480 ml Labs: Laboratory Tests Test 02/13/20 12:00 Urine Collection Type Unknown Urine Color Yellow Urine Clarity Clear Urine pH 5.5 Urine Specific [place] 1.015 Urine Protein Neg (NEG-TRACE) Urine Glucose (UA) Neg mg/dL (NEG) Urine Ketones (Stick) Neg mg/dL (NEG) Urine Blood Neg (NEG) Urine Nitrite Neg (NEG) Urine Bilirubin Neg (NEG) Urine Urobilinogen Dipstick 0.2 mg/dL (0.2 mg/dL) Urine Leukocyte Esterase Neg (NEG) Urine RBC Occ /HPF (0-2) Urine WBC Occ /HPF (0-4) Urine Squamous Epithelial Cells Few /LPF Urine Bacteria 0 /HPF (0-FEW) Urine Mucus Slight /LPF Current Medications: I have reviewed the current psychotropics carefully including drug interactions. Risk benefit ratio favors no change other than as noted in my dictated progress note. Diagnosis: Problems: (1) Impulse control disorder, unspecified (2) Anxiety disorder, unspecified (3) Bipolar disorder, curr episode mixed, severe, with psychotic features JABARI ARBOLEDA MD Feb 13, 2020 22:12
--- NOTE | 2020-02-14 00:46 | NUR ---
Last eveing pt sat quietly in her room or hallway. She took meds whole floated in yogurt. She was asking staff to get her clothes so she can go downstairs to visit. Attempts to reorient to location were not successful. She denies pain tonight and has had no behaviors.
[2020-02-14] MEDS: LEVOTHYROXINE 125 MCG TABLET PO SCH (06:02)
[2020-02-14 06:07] VITALS: BP 148/82
[2020-02-14 07:42] LABS: BASO # 0.1 x10^3/uL (0.0-0.2); BASO % 1 % (0-3); EOS # 0.2 x10^3/uL (0.0-0.7); EOS % 3 % (0-3); HEMATOCRIT 33.9 % (36.0-47.0); HEMOGLOBIN 11.2 g/dL (12.0-15.5); LYMPH # 1.2 x10^3/uL (1.0-4.8); LYMPH % 20 % (24-48); MEAN CORPUSCULAR HEMOGLOBIN 31 pg (25-35); MEAN CORPUSCULAR HGB CONC 33 g/dL (31-37); MEAN CORPUSCULAR VOLUME 92 fL (79-100); MONO # 0.9 x10^3/uL (0.0-1.1); MONO % 15 % (0-9); NEUT # 3.6 x10^3uL (1.8-7.7); NEUT % 62 % (31-73); PLATELET COUNT 278 x10^3/uL (140-400); RED BLOOD COUNT 3.68 x10^6/uL (3.50-5.40); WHITE BLOOD COUNT 5.9 x10^3/uL (4.0-11.0)
[2020-02-14 07:54] LABS: ALBUMIN 2.9 g/dL (3.4-5.0); ALBUMIN/GLOBULIN RATIO 0.7 (1.0-1.7); ALK PHOS 73 U/L (46-116); ALT (SGPT) 21 U/L (14-59); ANION GAP 8 (6-14); AST (SGOT) 13 U/L (15-37); BLOOD UREA NITROGEN 41 mg/dL (7-20); BUN/CREATININE RATIO 26 (6-20); CALCIUM 9.4 mg/dL (8.5-10.1); CARBON DIOXIDE 29 mmol/L (21-32); CHLORIDE 104 mmol/L (98-107); CREATININE 1.6 mg/dL (0.6-1.0); GFR 31.9; POTASSIUM 4.6 mmol/L (3.5-5.1); SODIUM 141 mmol/L (136-145); TOTAL BILIRUBIN 0.2 mg/dL (0.2-1.0); TOTAL PROTEIN 6.8 g/dL (6.4-8.2)
[2020-02-14 07:55] LABS: VAL ACID 56 mcg/mL (50-100)
[2020-02-14 07:59] LABS: GLUCOSE 113 mg/dL (70-99)
[2020-02-14] MEDS: DOCUSATE SODIUM 100 MG CAPSULE PO SCH (08:25)
[2020-02-14] MEDS: CLINDAMYCIN HCL 150 MG CAPSULE PO SCH (08:26)
[2020-02-14] MEDS: FERROUS SULFATE 325 MG TABLET. PO SCH (08:26)
[2020-02-14] MEDS: FUROSEMIDE 40 MG TABLET PO SCH (08:26)
[2020-02-14] MEDS: MAGNESIUM CHLORIDE ER 64 MG TABLET.ER PO SCH (08:26)
[2020-02-14] MEDS: CALCIUM CARB/VIT D3 500/200 TABLET PO SCH (08:26)
[2020-02-14] MEDS: LACTOBACILLUS RHAMNOSUS GG 1 CAPSULE. PO SCH ×2 (08:26→20:09)
[2020-02-14] MEDS: hydrALAZINE 25 MG TABLET PO SCH ×3 (08:27→20:18)
[2020-02-14] MEDS: amLODIPine BESYLATE 10 MG TABLET PO SCH (08:27)
[2020-02-14] MEDS: buPROPion XL 300 MG TAB.ER.24H. PO SCH (08:27)
[2020-02-14] MEDS: POLYETHYLENE GLYCOL 3350 17 GM PACKET. PO SCH (08:27)
[2020-02-14] MEDS: metFORMIN 500 MG TABLET PO SCH (08:28)
[2020-02-14] MEDS: ATENOLOL 50 MG TABLET PO SCH (08:28)
[2020-02-14] MEDS: FLUTICASONE 50MCG/NASAL SPRAY 16GM BOTTLE. NS SCH (08:28)
[2020-02-14] MEDS: MULTIVITAMIN with MINERAL TABLET. PO SCH (08:28)
[2020-02-14] MEDS: POLYVINYL ALCOHOL 1.4% OPHTH SOLUTION 15ML BOTTLE. OU SCH ×2 (08:29→20:20)
[2020-02-14] MEDS: ALBUTEROL SULFATE 8GM INHALER. INH SCH ×2 (08:29→20:19)
[2020-02-14] MEDS: clonazePAM 0.5 MG TABLET PO SCH (08:31)
--- NOTE | 2020-02-14 10:20 | PDOC ---
Exam Note: Avni Note: This note is a late entry for 02/13/2020 covers elements not covered in my initial note. Subjective: The patient was evaluated on telehealth rounds in the evening of 02/13/2020 with [facility] nursing aid. The unit is shut down due to COVID-19 exposure on the unit with no admissions and discharges for now. Dr. Gómez has covered for me for the past several days since I had been on vacation. Reviewed information with Dr. Gómez. Per Ana Laura BOND, she slept 6 hours previous night. She is incontinent, urinated on the floor. She appeared somewhat paranoid, psychotic in the morning, thought a baby was crying. Review of Systems: Ambulation impaired with walker. No CV, , pulmonary, eye system symptoms on review. Mental Status Exam: Reasonably oriented. Speech is coherent, somewhat rapid. Abstraction is fair. Computation is impaired. Language function intact. Attention span is short. I questioned her at some length about whether she was planning to get . She was a little more vague about this, stated she could not find a man to get to and was not as fixated on this as compared to last time as I assessed this few days back. No suicidal or homicidal ideation. Laboratory Data: Reviewed. Impression: Bipolar disorder manic with psychotic features. Anxiety disorder unspecified. Rest unchanged. Plan: No change from initial note. Assessment: Vital Signs/I&O: Vital Signs Date Time Temp Pulse Resp B/P (MAP) Pulse Ox O2 Delivery O2 Flow Rate FiO2 02/14/20 08:28 63 148/82 02/14/20 06:07 98.4 18 98 02/13/20 14:27 Room Air I & O 02/13/20 02/13/20 02/14/20 15:00 23:00 07:00 Intake Total 1080 ml 720 ml Balance 1080 ml 720 ml Labs: Laboratory Tests Test 02/13/20 12:00 02/14/20 07:32 Urine Collection Type Unknown Urine Color Yellow Urine Clarity Clear Urine pH 5.5 Urine Specific [place] 1.015 Urine Protein Neg (NEG-TRACE) Urine Glucose (UA) Neg mg/dL (NEG) Urine Ketones (Stick) Neg mg/dL (NEG) Urine Blood Neg (NEG) Urine Nitrite Neg (NEG) Urine Bilirubin Neg (NEG) Urine Urobilinogen Dipstick 0.2 mg/dL (0.2 mg/dL) Urine Leukocyte Esterase Neg (NEG) Urine RBC Occ /HPF (0-2) Urine WBC Occ /HPF (0-4) Urine Squamous Epithelial Cells Few /LPF Urine Bacteria 0 /HPF (0-FEW) Urine Mucus Slight /LPF White Blood Count 5.9 x10^3/uL (4.0-11.0) Red Blood Count 3.68 x10^6/uL (3.50-5.40) Hemoglobin 11.2 g/dL (12.0-15.5) L Hematocrit 33.9 % (36.0-47.0) L Mean Corpuscular Volume 92 fL (79-100) Mean Corpuscular Hemoglobin 31 pg (25-35) Mean Corpuscular Hemoglobin Concent 33 g/dL (31-37) Red Cell Distribution Width 16.0 % (11.5-14.5) H Platelet Count 278 x10^3/uL (140-400) Neutrophils (%) (Auto) 62 % (31-73) Lymphocytes (%) (Auto) 20 % (24-48) L Monocytes (%) (Auto) 15 % (0-9) H Eosinophils (%) (Auto) 3 % (0-3) Basophils (%) (Auto) 1 % (0-3) Neutrophils # (Auto) 3.6 x10^3uL (1.8-7.7) Lymphocytes # (Auto) 1.2 x10^3/uL (1.0-4.8) Monocytes # (Auto) 0.9 x10^3/uL (0.0-1.1) Eosinophils # (Auto) 0.2 x10^3/uL (0.0-0.7) Basophils # (Auto) 0.1 x10^3/uL (0.0-0.2) Sodium Level 141 mmol/L (136-145) Potassium Level 4.6 mmol/L (3.5-5.1) Chloride Level 104 mmol/L (98-107) Carbon Dioxide Level 29 mmol/L (21-32) Anion Gap 8 (6-14) Blood Urea Nitrogen 41 mg/dL (7-20) H Creatinine 1.6 mg/dL (0.6-1.0) H Estimated GFR (Cockcroft-Gault) 31.9 BUN/Creatinine Ratio 26 (6-20) H Glucose Level 113 mg/dL (70-99) H Calcium Level 9.4 mg/dL (8.5-10.1) Total Bilirubin 0.2 mg/dL (0.2-1.0) Aspartate Amino Transferase (AST) 13 U/L (15-37) L Alanine Aminotransferase (ALT) 21 U/L (14-59) Alkaline Phosphatase 73 U/L (46-116) Total Protein 6.8 g/dL (6.4-8.2) Albumin 2.9 g/dL (3.4-5.0) L Albumin/Globulin Ratio 0.7 (1.0-1.7) L Valproic Acid Level 56 mcg/mL (50-100) Valproic Acid Last Dose Date 02/13/20 Valproic Acid Last Dose Time 2100 Current Medications: Meds: Current Medications Medications (Trade) Dose Ordered Sig/Annika Route PRN Reason Start Time Stop Time Status Last Admin Dose Admin Clonazepam (KlonoPIN) 0.25 mg DAILY PO 02/14/20 09:00 02/14/20 08:31 I have reviewed the current psychotropics carefully including drug interactions. Risk benefit ratio favors no change other than as noted in my dictated progress note. Diagnosis: Problems: (1) Impulse control disorder, unspecified (2) Anxiety disorder, unspecified (3) Bipolar disorder, curr episode mixed, severe, with psychotic features JABARI ARBOLEDA MD Feb 14, 2020 10:20
--- NOTE | 2020-02-14 10:50 | NUR ---
Patient has been asking about the group from yesterday where they identified the [facility]. She stated that next time she wants a map of the [place] to study prior to the group. She then became confused and stated it was a group that identified counties in [place]. Patient is making many requests of housekeeping and [facility] staff. She needs more kleenex, she needs a gatorade, she needs orange juice, etc. Nurse served patient cranberry juice and provided education that orange juice is contraindicated for patients with GERD. Patient compliant with medications. She is calm and denies delusions/hallucinations at this time. When nurse asked specifically about abdominal pain the patient pointed to her upper abdominal area and said it hurts to her back, but mostly when she lays down. Patient declined tylenol for pain. Patient was observed participating in activity group this morning.
[2020-02-14 16:05] VITALS: BP 118/61
--- NOTE | 2020-02-14 18:24 | NUR ---
Patient speaking to dr cole on zoom video call and told him that she is "moving in with a nice mom and dad". She then stated she "has autism". Patient tearful after speaking with Dr Cole. She is currently sitting in her chair in the hallway near her room wearing her mask.
[2020-02-14] MEDS: DIVALPROEX ER 500 MG TAB.ER.24H PO SCH (20:09)
[2020-02-14] MEDS: MONTELUKAST 10 MG TABLET. PO SCH (20:12)
[2020-02-14] MEDS: traZODone 50 MG TABLET. PO SCH (20:13)
[2020-02-14] MEDS: DONEPEZIL HCL 10 MG TABLET PO SCH (20:13)
[2020-02-14] MEDS: OXYBUTYNIN CHLORIDE 5 MG TABLET PO SCH (20:14)
[2020-02-14] MEDS: risperiDONE 1 MG TABLET. PO SCH (20:16)
[2020-02-14] MEDS: PANTOPRAZOLE 40 MG TABLET. PO SCH (20:16)
[2020-02-14] MEDS: risperiDONE 0.25 MG TABLET. PO SCH (20:16)
--- NOTE | 2020-02-14 21:56 | PDOC ---
Exam Note: [facility] Note: Please also refer to the separate dictated note~for this date of service dictated separately.~Patient seen individually. Discussed the patient with Nursing staff reviewed the chart.~Reviewed interim history and current functioning. Reviewed vital signs,~Labs/ Radiology~and current medications noted below. Continue current treatment with the changes noted in the dictated addendum note Assessment: Vital Signs/I&O: Vital Signs Date Time Temp Pulse Resp B/P (MAP) Pulse Ox O2 Delivery O2 Flow Rate FiO2 02/14/20 20:18 59 158/82 02/14/20 19:47 97.5 96 02/14/20 16:05 17 02/13/20 14:27 Room Air I & O 02/13/20 02/13/20 02/14/20 15:00 23:00 07:00 Intake Total 1080 ml 720 ml Balance 1080 ml 720 ml Labs: Laboratory Tests Test 02/14/20 07:32 White Blood Count 5.9 x10^3/uL (4.0-11.0) Red Blood Count 3.68 x10^6/uL (3.50-5.40) Hemoglobin 11.2 g/dL (12.0-15.5) L Hematocrit 33.9 % (36.0-47.0) L Mean Corpuscular Volume 92 fL (79-100) Mean Corpuscular Hemoglobin 31 pg (25-35) Mean Corpuscular Hemoglobin Concent 33 g/dL (31-37) Red Cell Distribution Width 16.0 % (11.5-14.5) H Platelet Count 278 x10^3/uL (140-400) Neutrophils (%) (Auto) 62 % (31-73) Lymphocytes (%) (Auto) 20 % (24-48) L Monocytes (%) (Auto) 15 % (0-9) H Eosinophils (%) (Auto) 3 % (0-3) Basophils (%) (Auto) 1 % (0-3) Neutrophils # (Auto) 3.6 x10^3uL (1.8-7.7) Lymphocytes # (Auto) 1.2 x10^3/uL (1.0-4.8) Monocytes # (Auto) 0.9 x10^3/uL (0.0-1.1) Eosinophils # (Auto) 0.2 x10^3/uL (0.0-0.7) Basophils # (Auto) 0.1 x10^3/uL (0.0-0.2) Sodium Level 141 mmol/L (136-145) Potassium Level 4.6 mmol/L (3.5-5.1) Chloride Level 104 mmol/L (98-107) Carbon Dioxide Level 29 mmol/L (21-32) Anion Gap 8 (6-14) Blood Urea Nitrogen 41 mg/dL (7-20) H Creatinine 1.6 mg/dL (0.6-1.0) H Estimated GFR (Cockcroft-Gault) 31.9 BUN/Creatinine Ratio 26 (6-20) H Glucose Level 113 mg/dL (70-99) H Calcium Level 9.4 mg/dL (8.5-10.1) Total Bilirubin 0.2 mg/dL (0.2-1.0) Aspartate Amino Transferase (AST) 13 U/L (15-37) L Alanine Aminotransferase (ALT) 21 U/L (14-59) Alkaline Phosphatase 73 U/L (46-116) Total Protein 6.8 g/dL (6.4-8.2) Albumin 2.9 g/dL (3.4-5.0) L Albumin/Globulin Ratio 0.7 (1.0-1.7) L Valproic Acid Level 56 mcg/mL (50-100) Valproic Acid Last Dose Date 02/13/20 Valproic Acid Last Dose Time 2100 Current Medications: Meds: Current Medications Medications (Trade) Dose Ordered Sig/Annika Route PRN Reason Start Time Stop Time Status Last Admin Dose Admin Clonazepam (KlonoPIN) 0.25 mg DAILY PO 02/14/20 09:00 02/14/20 08:31 I have reviewed the current psychotropics carefully including drug interactions. Risk benefit ratio favors no change other than as noted in my dictated progress note. Diagnosis: Problems: (1) Impulse control disorder, unspecified (2) Anxiety disorder, unspecified (3) Bipolar disorder, curr episode mixed, severe, with psychotic features JABARI ARBOLEDA MD Feb 14, 2020 21:56
--- NOTE | 2020-02-15 04:22 | NUR ---
Nursing Note The patient was located in her room. The patient was disorganized, and at times grandiose. The patient remains awake in his room at this time.
[2020-02-15] MEDS: LEVOTHYROXINE 125 MCG TABLET PO SCH (05:30)
[2020-02-15 05:41] VITALS: BP 157/89
[2020-02-15] MEDS: LACTOBACILLUS RHAMNOSUS GG 1 CAPSULE. PO SCH ×2 (07:41→20:15)
[2020-02-15] MEDS: POLYETHYLENE GLYCOL 3350 17 GM PACKET. PO SCH (07:41)
[2020-02-15] MEDS: MULTIVITAMIN with MINERAL TABLET. PO SCH (07:42)
[2020-02-15] MEDS: metFORMIN 500 MG TABLET PO SCH (07:42)
[2020-02-15] MEDS: FUROSEMIDE 40 MG TABLET PO SCH (07:42)
[2020-02-15] MEDS: MAGNESIUM CHLORIDE ER 64 MG TABLET.ER PO SCH (07:42)
[2020-02-15] MEDS: FERROUS SULFATE 325 MG TABLET. PO SCH (07:43)
[2020-02-15] MEDS: hydrALAZINE 25 MG TABLET PO SCH ×3 (07:44→20:15)
[2020-02-15] MEDS: amLODIPine BESYLATE 10 MG TABLET PO SCH (07:44)
[2020-02-15] MEDS: ATENOLOL 50 MG TABLET PO SCH (07:45)
[2020-02-15] MEDS: buPROPion XL 300 MG TAB.ER.24H. PO SCH (07:45)
[2020-02-15] MEDS: CALCIUM CARB/VIT D3 500/200 TABLET PO SCH (07:45)
[2020-02-15] MEDS: DOCUSATE SODIUM 100 MG CAPSULE PO SCH (07:46)
[2020-02-15] MEDS: clonazePAM 0.5 MG TABLET PO SCH (07:49)
[2020-02-15] MEDS: ALBUTEROL SULFATE 8GM INHALER. INH SCH ×2 (07:59→20:11)
[2020-02-15] MEDS: FLUTICASONE 50MCG/NASAL SPRAY 16GM BOTTLE. NS SCH (07:59)
[2020-02-15] MEDS: POLYVINYL ALCOHOL 1.4% OPHTH SOLUTION 15ML BOTTLE. OU SCH ×2 (07:59→20:11)
--- NOTE | 2020-02-15 10:53 | NUR ---
Patient sitting in a chair in her room during initial interaction. Calm and cooperative with assessment. Patient took meds whole floated in pudding without difficulty. Patient stated she had autism and wants to get out of here to be with her kids and grandkids who have autism also. Assessment as charted. No behaviors noted at this time. Will continue to monitor.
[2020-02-15] MEDS: ACETAMINOPHEN 325 MG TABLET PO PRN ×2 (11:28→16:36)
[2020-02-15 16:16] VITALS: BP 137/76
[2020-02-15] MEDS: risperiDONE 1 MG TABLET. PO SCH (20:13)
[2020-02-15] MEDS: DIVALPROEX ER 500 MG TAB.ER.24H PO SCH (20:13)
[2020-02-15] MEDS: PANTOPRAZOLE 40 MG TABLET. PO SCH (20:13)
[2020-02-15] MEDS: OXYBUTYNIN CHLORIDE 5 MG TABLET PO SCH (20:14)
[2020-02-15] MEDS: risperiDONE 0.25 MG TABLET. PO SCH (20:14)
[2020-02-15] MEDS: traZODone 50 MG TABLET. PO SCH (20:14)
[2020-02-15] MEDS: DONEPEZIL HCL 10 MG TABLET PO SCH (20:15)
[2020-02-15] MEDS: MONTELUKAST 10 MG TABLET. PO SCH (20:15)
--- NOTE | 2020-02-15 21:53 | PDOC ---
Exam Note: [facility] Note: This note is a late entry for 02/14/2020 covers elements not covered in my initial note. Subjective: The patient was evaluated on telehealth rounds in the evening of 02/14/2020 with Ana Laura BOND. The unit is shut down due to COVID-19 exposure on the unit with no admissions and discharges for now. Per Ana Laura BOND, she slept 4-3/4 hours previous night. She has been less obsessed, delusional, not talking about getting . Review of Systems: Ambulation impaired with walker. No CV, , pulmonary, eye system symptoms on review. Mental Status Exam: Reasonably oriented. She is pleasant, less obsessed about the marriage as noted above. Speech is less pressured. Abstraction is fair. Computation is impaired. Language function intact. Mood and affect remains somewhat grandiose, labile but improved. Laboratory Data: Reviewed. Impression: Bipolar disorder manic with psychotic features. Anxiety disorder unspecified. Rest unchanged. Plan: No change from initial note. Assessment: Vital Signs/I&O: Vital Signs Date Time Temp Pulse Resp B/P (MAP) Pulse Ox O2 Delivery O2 Flow Rate FiO2 02/15/20 21:48 97.6 97 02/15/20 20:15 54 137/76 02/15/20 16:16 17 Room Air I & O 02/14/20 02/14/20 02/15/20 14:59 22:59 06:59 Intake Total 600 ml 960 ml Balance 600 ml 960 ml Labs: Laboratory Tests Test 02/15/20 07:54 Glucose (Fingerstick) 107 mg/dL (70-99) H Current Medications: I have reviewed the current psychotropics carefully including drug interactions. Risk benefit ratio favors no change other than as noted in my dictated progress note. Diagnosis: Problems: (1) Impulse control disorder, unspecified (2) Anxiety disorder, unspecified (3) Bipolar disorder, curr episode mixed, severe, with psychotic features JABARI ARBOLEDA MD Feb 15, 2020 21:52
--- NOTE | 2020-02-15 21:59 | PDOC ---
Exam Note: [facility]ni Note: Please also refer to the separate dictated note~for this date of service dictated separately.~Patient seen individually. Discussed the patient with Nursing staff reviewed the chart.~Reviewed interim history and current functioning. Reviewed vital signs,~Labs/ Radiology~and current medications noted below. Continue current treatment with the changes noted in the dictated addendum note Assessment: Vital Signs/I&O: Vital Signs Date Time Temp Pulse Resp B/P (MAP) Pulse Ox O2 Delivery O2 Flow Rate FiO2 02/15/20 21:48 97.6 97 02/15/20 20:15 54 137/76 02/15/20 16:16 17 Room Air I & O 02/14/20 02/14/20 02/15/20 15:00 23:00 07:00 Intake Total 600 ml 960 ml Balance 600 ml 960 ml Labs: Laboratory Tests Test 02/15/20 07:54 Glucose (Fingerstick) 107 mg/dL (70-99) H Current Medications: I have reviewed the current psychotropics carefully including drug interactions. Risk benefit ratio favors no change other than as noted in my dictated progress note. Diagnosis: Problems: (1) Impulse control disorder, unspecified (2) Anxiety disorder, unspecified (3) Bipolar disorder, curr episode mixed, severe, with psychotic features JABARI ARBOLEDA MD Feb 15, 2020 21:59
--- NOTE | 2020-02-15 22:38 | NUR ---
Patient is in her room on assumption of care. She is sitting on the side of her bed, coloring. Calm, cooperative and compliant with assessments and medications taken whole floated in vanilla pudding. No agitation. No delusions voiced so far this shift. Patient denies any pain or discomfort at present time.
[2020-02-16] MEDS: LEVOTHYROXINE 125 MCG TABLET PO SCH (05:57)
[2020-02-16 06:41] VITALS: BP 166/65
[2020-02-16] MEDS: POLYETHYLENE GLYCOL 3350 17 GM PACKET. PO SCH (07:37)
[2020-02-16] MEDS: FUROSEMIDE 40 MG TABLET PO SCH (07:38)
[2020-02-16] MEDS: MAGNESIUM CHLORIDE ER 64 MG TABLET.ER PO SCH (07:38)
[2020-02-16] MEDS: CALCIUM CARB/VIT D3 500/200 TABLET PO SCH (07:39)
[2020-02-16] MEDS: DOCUSATE SODIUM 100 MG CAPSULE PO SCH (07:39)
[2020-02-16] MEDS: FERROUS SULFATE 325 MG TABLET. PO SCH (07:39)
[2020-02-16] MEDS: LACTOBACILLUS RHAMNOSUS GG 1 CAPSULE. PO SCH ×2 (07:39→20:09)
[2020-02-16] MEDS: amLODIPine BESYLATE 10 MG TABLET PO SCH (07:39)
[2020-02-16] MEDS: metFORMIN 500 MG TABLET PO SCH (07:39)
[2020-02-16] MEDS: MULTIVITAMIN with MINERAL TABLET. PO SCH (07:40)
[2020-02-16] MEDS: buPROPion XL 300 MG TAB.ER.24H. PO SCH (07:40)
[2020-02-16] MEDS: ATENOLOL 50 MG TABLET PO SCH (07:40)
[2020-02-16] MEDS: hydrALAZINE 25 MG TABLET PO SCH ×3 (07:41→20:09)
[2020-02-16] MEDS: FLUTICASONE 50MCG/NASAL SPRAY 16GM BOTTLE. NS SCH (07:42)
[2020-02-16] MEDS: POLYVINYL ALCOHOL 1.4% OPHTH SOLUTION 15ML BOTTLE. OU SCH ×2 (07:42→20:10)
[2020-02-16] MEDS: ALBUTEROL SULFATE 8GM INHALER. INH SCH ×2 (07:43→20:12)
--- NOTE | 2020-02-16 14:37 | NUR ---
SHAKA left a message for Carla to contact SHAKA when possible to discuss discharge for Wednesday. SHAKA will fax over notes with the discharge alert for Wednesday on the cover sheet.
--- NOTE | 2020-02-16 14:57 | NUR ---
SHAKA contacted pt dtr Comfort, to update her re: pt behaviors and to discuss pt discharge for Wednesday. HSAKA has yet to hear back from Carla at [facility] about making this arrangement and realizes that pt placement may have to be pushed to Wednesday. Comfort asked about pt UTI and SHAKA reports that as far as she knows her UA came back negative. Pt is medication compliant and appears to have a decrease in delusions. SHAKA will continue to work with [facility] and finalize plans for next week.
[2020-02-16 15:38] VITALS: BP 159/69
--- NOTE | 2020-02-16 15:46 | NUR ---
Pt has been up for meals and out for groups. Has been compliant with meds and cares. Needy at times but is redirectable.
[2020-02-16] MEDS: traZODone 50 MG TABLET. PO SCH (20:08)
[2020-02-16] MEDS: DIVALPROEX ER 500 MG TAB.ER.24H PO SCH (20:08)
[2020-02-16] MEDS: risperiDONE 1 MG TABLET. PO SCH (20:08)
[2020-02-16] MEDS: risperiDONE 0.25 MG TABLET. PO SCH (20:08)
[2020-02-16] MEDS: PANTOPRAZOLE 40 MG TABLET. PO SCH (20:09)
[2020-02-16] MEDS: OXYBUTYNIN CHLORIDE 5 MG TABLET PO SCH (20:09)
[2020-02-16] MEDS: MONTELUKAST 10 MG TABLET. PO SCH (20:09)
[2020-02-16] MEDS: DONEPEZIL HCL 10 MG TABLET PO SCH (20:09)
--- NOTE | 2020-02-16 22:01 | PDOC ---
Exam Note: [facility] Note: Please also refer to the separate dictated note~for this date of service dictated separately.~Patient seen individually. Discussed the patient with Nursing staff reviewed the chart.~Reviewed interim history and current functioning. Reviewed vital signs,~Labs/ Radiology~and current medications noted below. Continue current treatment with the changes noted in the dictated addendum note Assessment: Vital Signs/I&O: Vital Signs Date Time Temp Pulse Resp B/P (MAP) Pulse Ox O2 Delivery O2 Flow Rate FiO2 02/16/20 21:43 97.8 99 02/16/20 20:09 54 159/69 02/16/20 15:38 18 Room Air I & O 02/15/20 02/15/20 02/16/20 15:00 23:00 07:00 Intake Total 940 ml 240 ml Balance 940 ml 240 ml Labs: Laboratory Tests Test 02/16/20 07:22 Glucose (Fingerstick) 104 mg/dL (70-99) H Current Medications: I have reviewed the current psychotropics carefully including drug interactions. Risk benefit ratio favors no change other than as noted in my dictated progress note. Diagnosis: Problems: (1) Impulse control disorder, unspecified (2) Anxiety disorder, unspecified (3) Bipolar disorder, curr episode mixed, severe, with psychotic features JABARI ARBOLEDA MD Feb 16, 2020 22:01
--- NOTE | 2020-02-16 22:06 | NUR ---
Nursing Note The patient was located in her room for her assessment and medication pass. The patient took her medication whole. The patient was pleasant during interactions with this nurse. The patient is currently awake sitting in her room.
--- NOTE | 2020-02-16 23:22 | PDOC ---
Exam Note: [facility]ni Note: This note is a late entry for 02/15/2020 covers elements not covered in my initial note. Subjective: The patient was evaluated on telehealth rounds in the morning of 02/15/2020 with treatment team meeting with Melvi (neonatal social worker), Sara BOND and [facility] nursing aid including her current functioning. The unit is still on a lockdown due to COVID-19 exposure with no admissions and discharges. Per Sara RN in the evening, she slept 5-1/2 hours previous night. Per nursing report, the patient was saying she could hear babies crying but she has not been calling out or talking about getting and I processed this with her at some length during the audiovisual rounds, less fixated on this. Review of Systems: Ambulation impaired with walker. No CV, , pulmonary, eye system symptoms on review. Mental Status Exam: Reasonably oriented to situation. Speech is coherent, less pressured. Abstraction is fair. Computation is impaired. Language function intact. Mood and affect still somewhat anxious, labile, slightly grandiose at times but much better than before. Laboratory Data: Reviewed. Impression: Bipolar disorder manic with psychotic features. Anxiety disorder unspecified. Rest unchanged. Plan: No change from initial note but we will go ahead and stop the Klonopin 0.25 mg that she gets once a day. This is to minimize usage of benzodiazepine and the added risk associated with falls, etc at her age. She is tolerating the rest of her bipolar medications adequately with positive effect on the anxiety resolution. Assessment: Vital Signs/I&O: Vital Signs Date Time Temp Pulse Resp B/P (MAP) Pulse Ox O2 Delivery O2 Flow Rate FiO2 02/16/20 21:43 97.8 99 02/16/20 20:09 54 159/69 02/16/20 15:38 18 Room Air I & O 02/15/20 02/15/20 02/16/20 15:00 23:00 07:00 Intake Total 940 ml 240 ml Balance 940 ml 240 ml Labs: Laboratory Tests Test 02/16/20 07:22 Glucose (Fingerstick) 104 mg/dL (70-99) H Current Medications: I have reviewed the current psychotropics carefully including drug interactions. Risk benefit ratio favors no change other than as noted in my dictated progress note. Diagnosis: Problems: (1) Impulse control disorder, unspecified (2) Anxiety disorder, unspecified (3) Bipolar disorder, curr episode mixed, severe, with psychotic features JABARI ARBOLEDA MD Feb 16, 2020 23:22
[2020-02-17 05:49] VITALS: BP 157/63
[2020-02-17] MEDS: LEVOTHYROXINE 125 MCG TABLET PO SCH (06:22)
[2020-02-17] MEDS: ALBUTEROL SULFATE 8GM INHALER. INH SCH ×2 (07:46→20:02)
[2020-02-17] MEDS: POLYVINYL ALCOHOL 1.4% OPHTH SOLUTION 15ML BOTTLE. OU SCH ×2 (07:47→20:00)
[2020-02-17] MEDS: FLUTICASONE 50MCG/NASAL SPRAY 16GM BOTTLE. NS SCH (07:47)
[2020-02-17] MEDS: MAGNESIUM CHLORIDE ER 64 MG TABLET.ER PO SCH (07:48)
[2020-02-17] MEDS: FUROSEMIDE 40 MG TABLET PO SCH (07:48)
[2020-02-17] MEDS: POLYETHYLENE GLYCOL 3350 17 GM PACKET. PO SCH (07:48)
[2020-02-17] MEDS: CALCIUM CARB/VIT D3 500/200 TABLET PO SCH (07:48)
[2020-02-17] MEDS: MULTIVITAMIN with MINERAL TABLET. PO SCH (07:48)
[2020-02-17] MEDS: metFORMIN 500 MG TABLET PO SCH (07:49)
[2020-02-17] MEDS: DOCUSATE SODIUM 100 MG CAPSULE PO SCH (07:49)
[2020-02-17] MEDS: amLODIPine BESYLATE 10 MG TABLET PO SCH (07:50)
[2020-02-17] MEDS: buPROPion XL 300 MG TAB.ER.24H. PO SCH (07:50)
[2020-02-17] MEDS: ATENOLOL 50 MG TABLET PO SCH (07:50)
[2020-02-17] MEDS: LACTOBACILLUS RHAMNOSUS GG 1 CAPSULE. PO SCH ×2 (07:50→19:59)
[2020-02-17] MEDS: FERROUS SULFATE 325 MG TABLET. PO SCH (07:50)
[2020-02-17] MEDS: hydrALAZINE 25 MG TABLET PO SCH ×3 (07:51→19:59)
[2020-02-17 16:03] VITALS: BP 118/74
--- NOTE | 2020-02-17 16:52 | NUR ---
Pt up in room adl. Up for meals. Compliant with meds and cares. Needy at times but has been redirectable.
[2020-02-17] MEDS: risperiDONE 1 MG TABLET. PO SCH (19:57)
[2020-02-17] MEDS: OXYBUTYNIN CHLORIDE 5 MG TABLET PO SCH (19:58)
[2020-02-17] MEDS: DONEPEZIL HCL 10 MG TABLET PO SCH (19:58)
[2020-02-17] MEDS: risperiDONE 0.25 MG TABLET. PO SCH (19:58)
[2020-02-17] MEDS: PANTOPRAZOLE 40 MG TABLET. PO SCH (19:58)
[2020-02-17] MEDS: MONTELUKAST 10 MG TABLET. PO SCH (19:59)
[2020-02-17] MEDS: DIVALPROEX ER 500 MG TAB.ER.24H PO SCH (19:59)
[2020-02-17] MEDS: traZODone 50 MG TABLET. PO SCH (20:00)
--- NOTE | 2020-02-17 21:51 | PDOC ---
Exam Note: Avni Note: Please also refer to the separate dictated note~for this date of service dictated separately.~Patient seen individually. Discussed the patient with Nursing staff reviewed the chart.~Reviewed interim history and current functioning. Reviewed vital signs,~Labs/ Radiology~and current medications noted below. Continue current treatment with the changes noted in the dictated addendum note Assessment: Vital Signs/I&O: Vital Signs Date Time Temp Pulse Resp B/P (MAP) Pulse Ox O2 Delivery O2 Flow Rate FiO2 02/17/20 19:59 61 118/74 02/17/20 16:03 99.1 18 95 Room Air I & O 02/16/20 02/16/20 02/17/20 15:00 23:00 07:00 Intake Total 714 ml 975 ml Balance 714 ml 975 ml Labs: Laboratory Tests Test 02/17/20 07:48 Glucose (Fingerstick) 99 mg/dL (70-99) Current Medications: I have reviewed the current psychotropics carefully including drug interactions. Risk benefit ratio favors no change other than as noted in my dictated progress note. Diagnosis: Problems: (1) Impulse control disorder, unspecified (2) Anxiety disorder, unspecified (3) Bipolar disorder, curr episode mixed, severe, with psychotic features JABARI ARBOLEDA MD Feb 17, 2020 21:51
--- NOTE | 2020-02-17 22:32 | NUR ---
Nursing Note The patient was located in the hallway near her room as well as in her room. The patient was compliant with her assessment and medication pass. The patient requested information on each of her HS medications which she was provided. The patient took her medication whole. During her assessment the patient stated that "The bed in my room when I sleep in it it makes me shorter." The patient is currently sleeping in her room.
[2020-02-18] MEDS: LEVOTHYROXINE 125 MCG TABLET PO SCH (06:26)
[2020-02-18 06:27] VITALS: BP 153/72
--- NOTE | 2020-02-18 06:37 | PDOC ---
Exam Note: Avni Note: This note is a late entry for 02/16/2020 covers elements not covered in my initial note. Subjective: The patient was evaluated on telehealth rounds in the evening of 02/16/2020 with [facility] nursing aid. The unit is shut down due to COVID-19 exposure on the unit with no admissions and discharges per Department of Health directives. Per Brenda RN in the evening, she slept poorly last night, just 1- 1/2 hours, somewhat anxious. She is less delusional about getting nevertheless. Review of Systems: Ambulation impaired with walker. No CV, , pulmonary, eye system symptoms on review. Mental Status Exam: Reasonably oriented to situation. The patient remains somewhat anxious, but less paranoid. Speech is coherent. Abstraction is fair. Computation is impaired. Attention span is short. Language function intact. Mood and affect still somewhat anxious, labile. No suicidal or homicidal ideation. Laboratory Data: Reviewed. Impression: Bipolar disorder manic with psychotic features. Anxiety disorder unspecified. Rest unchanged. Plan: No change from initial note. The patient is overall less psychotic, seemed to smile as I addressed her getting during the individual rounds and she recognizes this is an appropriate but still becomes slightly delusional at times. Assessment: Vital Signs/I&O: Vital Signs Date Time Temp Pulse Resp B/P (MAP) Pulse Ox O2 Delivery O2 Flow Rate FiO2 02/18/20 06:27 98.7 51 16 153/72 (99) 98 Room Air I & O 02/17/20 02/17/20 02/18/20 15:00 23:00 07:00 Intake Total 720 ml 360 ml 360 ml Balance 720 ml 360 ml 360 ml Labs: Laboratory Tests Test 02/17/20 07:48 Glucose (Fingerstick) 99 mg/dL (70-99) Current Medications: I have reviewed the current psychotropics carefully including drug interactions. Risk benefit ratio favors no change other than as noted in my dictated progress note. Diagnosis: Problems: (1) Impulse control disorder, unspecified (2) Anxiety disorder, unspecified (3) Bipolar disorder, curr episode mixed, severe, with psychotic features JABARI ARBOLEDA MD Feb 18, 2020 06:37
--- NOTE | 2020-02-18 06:48 | PDOC ---
Exam Note: Avni Note: This note is a late entry for 02/17/2020 covers elements not covered in my initial note. Subjective: The patient was evaluated on telehealth rounds in evening of 02/17/2020 with Brenda BOND. The unit is shut down due to COVID-19 exposure on the unit with no admissions and discharges per Department of Health directives. Per Brenda RN in the evening, she slept 4-3/4 hours previous night. Previous night she was convinced there was a snake in her room in a bag. Nursing staff emptied the bag with some Kleenex tissues and etc, and she was then still not quite convinced. I addressed this with her today and she was more accepting of this. Review of Systems: Ambulation impaired with walker. No CV, , pulmonary, eye, ENT system symptoms on review. Mental Status Exam: Reasonably oriented to situation. She was quite verbal, interactive, less paranoid, delusional. Attention span short. Language function intact. Mood and affect remains anxious at times. Laboratory Data: Reviewed. Impression: Bipolar disorder manic with psychotic features. Anxiety disorder unspecified. Rest unchanged. Plan: No change from initial note. Assessment: Vital Signs/I&O: Vital Signs Date Time Temp Pulse Resp B/P (MAP) Pulse Ox O2 Delivery O2 Flow Rate FiO2 02/18/20 06:27 98.7 51 16 153/72 (99) 98 Room Air I & O 02/17/20 02/17/20 02/18/20 15:00 23:00 07:00 Intake Total 720 ml 360 ml 360 ml Balance 720 ml 360 ml 360 ml Labs: Laboratory Tests Test 02/17/20 07:48 Glucose (Fingerstick) 99 mg/dL (70-99) Current Medications: I have reviewed the current psychotropics carefully including drug interactions. Risk benefit ratio favors no change other than as noted in my dictated progress note. Diagnosis: Problems: (1) Impulse control disorder, unspecified (2) Anxiety disorder, unspecified (3) Bipolar disorder, curr episode mixed, severe, with psychotic features JABARI ARBOLEDA MD Feb 18, 2020 06:48
[2020-02-18] MEDS: POLYVINYL ALCOHOL 1.4% OPHTH SOLUTION 15ML BOTTLE. OU SCH ×2 (08:05→20:33)
[2020-02-18] MEDS: ALBUTEROL SULFATE 8GM INHALER. INH SCH ×2 (08:05→20:35)
[2020-02-18] MEDS: FLUTICASONE 50MCG/NASAL SPRAY 16GM BOTTLE. NS SCH (08:05)
[2020-02-18] MEDS: LACTOBACILLUS RHAMNOSUS GG 1 CAPSULE. PO SCH ×2 (08:06→20:34)
[2020-02-18] MEDS: CALCIUM CARB/VIT D3 500/200 TABLET PO SCH (08:06)
[2020-02-18] MEDS: POLYETHYLENE GLYCOL 3350 17 GM PACKET. PO SCH (08:06)
[2020-02-18] MEDS: MAGNESIUM CHLORIDE ER 64 MG TABLET.ER PO SCH (08:06)
[2020-02-18] MEDS: FUROSEMIDE 40 MG TABLET PO SCH (08:07)
[2020-02-18] MEDS: FERROUS SULFATE 325 MG TABLET. PO SCH (08:07)
[2020-02-18] MEDS: buPROPion XL 300 MG TAB.ER.24H. PO SCH (08:07)
[2020-02-18] MEDS: metFORMIN 500 MG TABLET PO SCH (08:07)
[2020-02-18] MEDS: ATENOLOL 50 MG TABLET PO SCH (08:07)
[2020-02-18] MEDS: DOCUSATE SODIUM 100 MG CAPSULE PO SCH (08:07)
[2020-02-18] MEDS: amLODIPine BESYLATE 10 MG TABLET PO SCH (08:08)
[2020-02-18] MEDS: MULTIVITAMIN with MINERAL TABLET. PO SCH (08:08)
[2020-02-18] MEDS: hydrALAZINE 25 MG TABLET PO SCH ×3 (08:09→20:34)
[2020-02-18] MEDS ORDERED: POLY17PO5 PO (10:34)
[2020-02-18 16:02] VITALS: BP 145/73
--- NOTE | 2020-02-18 16:27 | NUR ---
Pt up in room for meals. Has been pleasant and compliant. Intermittently coloring. Has voiced no delusions thus far.
[2020-02-18] MEDS: OXYBUTYNIN CHLORIDE 5 MG TABLET PO SCH (20:34)
[2020-02-18] MEDS: MONTELUKAST 10 MG TABLET. PO SCH (20:34)
[2020-02-18] MEDS: traZODone 50 MG TABLET. PO SCH (20:34)
[2020-02-18] MEDS: DONEPEZIL HCL 10 MG TABLET PO SCH (20:34)
[2020-02-18] MEDS: PANTOPRAZOLE 40 MG TABLET. PO SCH (20:34)
[2020-02-18] MEDS: risperiDONE 1 MG TABLET. PO SCH (20:34)
[2020-02-18] MEDS: risperiDONE 0.25 MG TABLET. PO SCH (20:34)
[2020-02-18] MEDS: DIVALPROEX ER 500 MG TAB.ER.24H PO SCH (20:34)
--- NOTE | 2020-02-18 21:55 | PDOC ---
Exam Note: Avni Note: Please also refer to the separate dictated note~for this date of service dictated separately.~Patient seen individually. Discussed the patient with Nursing staff reviewed the chart.~Reviewed interim history and current functioning. Reviewed vital signs,~Labs/ Radiology~and current medications noted below. Continue current treatment with the changes noted in the dictated addendum note Assessment: Vital Signs/I&O: Vital Signs Date Time Temp Pulse Resp B/P (MAP) Pulse Ox O2 Delivery O2 Flow Rate FiO2 02/18/20 20:34 60 145/73 02/18/20 20:23 98.3 98 02/18/20 16:02 20 02/18/20 06:27 Room Air I & O 02/17/20 02/17/20 02/18/20 15:00 23:00 07:00 Intake Total 720 ml 360 ml 360 ml Balance 720 ml 360 ml 360 ml Labs: Laboratory Tests Test 02/18/20 08:03 Glucose (Fingerstick) 99 mg/dL (70-99) Current Medications: I have reviewed the current psychotropics carefully including drug interactions. Risk benefit ratio favors no change other than as noted in my dictated progress note. Diagnosis: Problems: (1) Impulse control disorder, unspecified (2) Anxiety disorder, unspecified (3) Bipolar disorder, curr episode mixed, severe, with psychotic features JABARI ARBOLEDA MD Feb 18, 2020 21:55
--- NOTE | 2020-02-18 22:22 | NUR ---
Pt located sitting outside of her room with a mask on. Pt occasionally walking the halls. Compliant with whole medications floated in yogurt. Pt asking for multiple items this evening.
[2020-02-19 05:46] VITALS: BP 153/72
[2020-02-19] MEDS: LEVOTHYROXINE 125 MCG TABLET PO SCH (05:59)
[2020-02-19] MEDS: FUROSEMIDE 40 MG TABLET PO SCH (08:30)
[2020-02-19] MEDS: MAGNESIUM CHLORIDE ER 64 MG TABLET.ER PO SCH (08:30)
[2020-02-19] MEDS: ATENOLOL 50 MG TABLET PO SCH (08:31)
[2020-02-19] MEDS: DOCUSATE SODIUM 100 MG CAPSULE PO SCH (08:31)
[2020-02-19] MEDS: MULTIVITAMIN with MINERAL TABLET. PO SCH (08:31)
[2020-02-19] MEDS: CALCIUM CARB/VIT D3 500/200 TABLET PO SCH (08:31)
[2020-02-19] MEDS: metFORMIN 500 MG TABLET PO SCH (08:31)
[2020-02-19] MEDS: hydrALAZINE 25 MG TABLET PO SCH ×3 (08:31→20:19)
[2020-02-19] MEDS: amLODIPine BESYLATE 10 MG TABLET PO SCH (08:31)
[2020-02-19] MEDS: LACTOBACILLUS RHAMNOSUS GG 1 CAPSULE. PO SCH ×2 (08:31→20:18)
[2020-02-19] MEDS: FERROUS SULFATE 325 MG TABLET. PO SCH (08:31)
[2020-02-19] MEDS: buPROPion XL 300 MG TAB.ER.24H. PO SCH (08:32)
[2020-02-19] MEDS: POLYETHYLENE GLYCOL 3350 17 GM PACKET. PO SCH (08:32)
[2020-02-19] MEDS: ALBUTEROL SULFATE 8GM INHALER. INH SCH ×2 (08:36→20:29)
[2020-02-19] MEDS: FLUTICASONE 50MCG/NASAL SPRAY 16GM BOTTLE. NS SCH (08:36)
[2020-02-19] MEDS: POLYVINYL ALCOHOL 1.4% OPHTH SOLUTION 15ML BOTTLE. OU SCH ×2 (08:36→20:29)
[2020-02-19 18:38] VITALS: BP 128/66
[2020-02-19] MEDS: OXYBUTYNIN CHLORIDE 5 MG TABLET PO SCH (20:19)
[2020-02-19] MEDS: MONTELUKAST 10 MG TABLET. PO SCH (20:19)
[2020-02-19] MEDS: risperiDONE 1 MG TABLET. PO SCH (20:19)
[2020-02-19] MEDS: risperiDONE 0.25 MG TABLET. PO SCH (20:19)
[2020-02-19] MEDS: PANTOPRAZOLE 40 MG TABLET. PO SCH (20:19)
[2020-02-19] MEDS: DONEPEZIL HCL 10 MG TABLET PO SCH (20:20)
[2020-02-19] MEDS: DIVALPROEX ER 500 MG TAB.ER.24H PO SCH (20:20)
[2020-02-19] MEDS: traZODone 50 MG TABLET. PO SCH (20:29)
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
--- NOTE | 2020-02-19 22:16 | PDOC ---
Exam Note: Avni Note: Please also refer to the separate dictated note~for this date of service dictated separately.~Patient seen individually. Discussed the patient with Nursing staff reviewed the chart.~Reviewed interim history and current functioning. Reviewed vital signs,~Labs/ Radiology~and current medications noted below. Continue current treatment with the changes noted in the dictated addendum note Assessment: Vital Signs/I&O: Vital Signs Date Time Temp Pulse Resp B/P (MAP) Pulse Ox O2 Delivery O2 Flow Rate FiO2 02/19/20 21:32 97.6 96 02/19/20 20:19 58 128/66 02/19/20 18:38 16 02/18/20 06:27 Room Air I & O 02/18/20 02/18/20 02/19/20 14:59 22:59 06:59 Intake Total 360 ml 920 ml Balance 360 ml 920 ml Current Medications: I have reviewed the current psychotropics carefully including drug interactions. Risk benefit ratio favors no change other than as noted in my dictated progress note. Diagnosis: Problems: (1) Impulse control disorder, unspecified (2) Anxiety disorder, unspecified (3) Bipolar disorder, curr episode mixed, severe, with psychotic features JABARI ARBOLEDA MD Feb 19, 2020 22:16
[2020-02-20 05:46] VITALS: BP 152/65
[2020-02-20] MEDS: LEVOTHYROXINE 125 MCG TABLET PO SCH (05:53)
[2020-02-20] MEDS: POLYETHYLENE GLYCOL 3350 17 GM PACKET. PO SCH (09:12)
[2020-02-20] MEDS: ALBUTEROL SULFATE 8GM INHALER. INH SCH ×2 (09:12→20:56)
[2020-02-20] MEDS: FLUTICASONE 50MCG/NASAL SPRAY 16GM BOTTLE. NS SCH (09:12)
[2020-02-20] MEDS: POLYVINYL ALCOHOL 1.4% OPHTH SOLUTION 15ML BOTTLE. OU SCH ×2 (09:12→20:56)
[2020-02-20] MEDS: FUROSEMIDE 40 MG TABLET PO SCH (09:12)
[2020-02-20] MEDS: CALCIUM CARB/VIT D3 500/200 TABLET PO SCH (09:12)
[2020-02-20] MEDS: DOCUSATE SODIUM 100 MG CAPSULE PO SCH (09:13)
[2020-02-20] MEDS: LACTOBACILLUS RHAMNOSUS GG 1 CAPSULE. PO SCH ×2 (09:13→20:56)
[2020-02-20] MEDS: FERROUS SULFATE 325 MG TABLET. PO SCH (09:13)
[2020-02-20] MEDS: metFORMIN 500 MG TABLET PO SCH (09:13)
[2020-02-20] MEDS: MULTIVITAMIN with MINERAL TABLET. PO SCH (09:13)
[2020-02-20] MEDS: buPROPion XL 300 MG TAB.ER.24H. PO SCH (09:13)
[2020-02-20] MEDS: MAGNESIUM CHLORIDE ER 64 MG TABLET.ER PO SCH (09:13)
[2020-02-20] MEDS: hydrALAZINE 25 MG TABLET PO SCH ×3 (09:13→20:57)
[2020-02-20] MEDS: amLODIPine BESYLATE 10 MG TABLET PO SCH (09:13)
[2020-02-20] MEDS: ATENOLOL 50 MG TABLET PO SCH (09:14)
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
--- NOTE | 2020-02-20 12:30 | NUR ---
Patient swabbed for COVID send out test.
[2020-02-20 15:37] VITALS: BP 117/68
[2020-02-20] MEDS: MONTELUKAST 10 MG TABLET. PO SCH (20:56)
[2020-02-20] MEDS: PANTOPRAZOLE 40 MG TABLET. PO SCH (20:56)
[2020-02-20] MEDS: risperiDONE 1 MG TABLET. PO SCH (20:57)
[2020-02-20] MEDS: DONEPEZIL HCL 10 MG TABLET PO SCH (20:57)
[2020-02-20] MEDS: OXYBUTYNIN CHLORIDE 5 MG TABLET PO SCH (20:57)
[2020-02-20] MEDS: traZODone 50 MG TABLET. PO SCH (20:57)
[2020-02-20] MEDS: DIVALPROEX ER 500 MG TAB.ER.24H PO SCH (20:58)
[2020-02-20] MEDS: risperiDONE 0.5 MG TABLET. PO SCH (20:58)
--- NOTE | 2020-02-20 21:56 | PDOC ---
Exam Note: Avni Note: Please also refer to the separate dictated note~for this date of service dictated separately.~Patient seen individually. Discussed the patient with Nursing staff reviewed the chart.~Reviewed interim history and current functioning. Reviewed vital signs,~Labs/ Radiology~and current medications noted below. Continue current treatment with the changes noted in the dictated addendum note Assessment: Vital Signs/I&O: Vital Signs Date Time Temp Pulse Resp B/P (MAP) Pulse Ox O2 Delivery O2 Flow Rate FiO2 02/20/20 20:57 60 117/68 02/20/20 19:56 97.9 97 02/20/20 15:37 17 Room Air I & O 02/19/20 02/19/20 02/20/20 15:00 23:00 07:00 Intake Total 554 ml 720 ml Balance 554 ml 720 ml Labs: Laboratory Tests Test 02/20/20 07:32 Glucose (Fingerstick) 96 mg/dL (70-99) Current Medications: Meds: Current Medications Medications (Trade) Dose Ordered Sig/Annika Route PRN Reason Start Time Stop Time Status Last Admin Dose Admin Risperidone (RisperDAL) 0.5 mg QHS PO 02/20/20 21:00 02/20/20 20:58 I have reviewed the current psychotropics carefully including drug interactions. Risk benefit ratio favors no change other than as noted in my dictated progress note. Diagnosis: Problems: (1) Impulse control disorder, unspecified (2) Anxiety disorder, unspecified (3) Bipolar disorder, curr episode mixed, severe, with psychotic features JABARI ARBOLEDA MD Feb 20, 2020 21:56
--- NOTE | 2020-02-20 22:37 | NUR ---
Pt located in her room this evening. Compliant with whole medications floated in yogurt. No delusions noted this evening.
[2020-02-21 05:46] VITALS: BP 147/80
[2020-02-21 06:22] LABS: BASO # 0.1 x10^3/uL (0.0-0.2); BASO % 1 % (0-3); EOS # 0.2 x10^3/uL (0.0-0.7); EOS % 3 % (0-3); HEMATOCRIT 33.1 % (36.0-47.0); HEMOGLOBIN 11.2 g/dL (12.0-15.5); LYMPH # 1.9 x10^3/uL (1.0-4.8); LYMPH % 24 % (24-48); MEAN CORPUSCULAR HEMOGLOBIN 32 pg (25-35); MEAN CORPUSCULAR HGB CONC 34 g/dL (31-37); MEAN CORPUSCULAR VOLUME 93 fL (79-100); MONO # 1.5 x10^3/uL (0.0-1.1); MONO % 19 % (0-9); NEUT # 4.2 x10^3uL (1.8-7.7); NEUT % 54 % (31-73); PLATELET COUNT 275 x10^3/uL (140-400); RED BLOOD COUNT 3.56 x10^6/uL (3.50-5.40); RED CELL DISTRIBUTION WIDTH 15.9 % (11.5-14.5); WHITE BLOOD COUNT 7.9 x10^3/uL (4.0-11.0)
[2020-02-21 06:35] LABS: ALBUMIN 2.9 g/dL (3.4-5.0); ALBUMIN/GLOBULIN RATIO 0.8 (1.0-1.7); CALCIUM 9.2 mg/dL (8.5-10.1); CREATININE 1.5 mg/dL (0.6-1.0); GFR 34.3; POTASSIUM 4.7 mmol/L (3.5-5.1); TOTAL BILIRUBIN 0.3 mg/dL (0.2-1.0); TOTAL PROTEIN 6.7 g/dL (6.4-8.2)
[2020-02-21] MEDS: ATENOLOL 50 MG TABLET PO SCH (08:59)
[2020-02-21] MEDS: MULTIVITAMIN with MINERAL TABLET. PO SCH (08:59)
[2020-02-21] MEDS: MAGNESIUM CHLORIDE ER 64 MG TABLET.ER PO SCH (08:59)
[2020-02-21] MEDS: metFORMIN 500 MG TABLET PO SCH (08:59)
[2020-02-21] MEDS: LEVOTHYROXINE 125 MCG TABLET PO SCH (08:59)
[2020-02-21] MEDS: FERROUS SULFATE 325 MG TABLET. PO SCH (09:00)
[2020-02-21] MEDS: LACTOBACILLUS RHAMNOSUS GG 1 CAPSULE. PO SCH ×2 (09:00→20:00)
[2020-02-21] MEDS: amLODIPine BESYLATE 10 MG TABLET PO SCH (09:00)
[2020-02-21] MEDS: buPROPion XL 300 MG TAB.ER.24H. PO SCH (09:00)
[2020-02-21] MEDS: hydrALAZINE 25 MG TABLET PO SCH ×3 (09:00→20:01)
[2020-02-21] MEDS: DOCUSATE SODIUM 100 MG CAPSULE PO SCH (09:00)
[2020-02-21] MEDS: CALCIUM CARB/VIT D3 500/200 TABLET PO SCH (09:00)
[2020-02-21] MEDS: FUROSEMIDE 40 MG TABLET PO SCH (09:01)
[2020-02-21] MEDS: ALBUTEROL SULFATE 8GM INHALER. INH SCH ×2 (09:02→20:02)
[2020-02-21] MEDS: FLUTICASONE 50MCG/NASAL SPRAY 16GM BOTTLE. NS SCH (09:02)
[2020-02-21] MEDS: POLYETHYLENE GLYCOL 3350 17 GM PACKET. PO SCH (09:03)
[2020-02-21] MEDS: POLYVINYL ALCOHOL 1.4% OPHTH SOLUTION 15ML BOTTLE. OU SCH ×2 (09:03→20:05)
--- NOTE | 2020-02-21 11:40 | PDOC ---
Exam Note: Avni Note: This note is a late entry for 02/18/2020 covers elements not covered in my initial note. Subjective: The patient was evaluated on telehealth rounds in the evening of 02/18/2020 due to COVID-19 restrictions on the unit with no admissions and discharges. Per Brenda RN in the evening, she slept 2-1/4 hours previous night. Overall, the patient has been more appropriate, less delusional, states she does not have any wedding plans and laughed about this. Insight is better. Review of Systems: Ambulation impaired with walker. No CV, , pulmonary, eye, ENT system symptoms on review. Mental Status Exam: Reasonably oriented to situation. She is more appropriate, less delusional. Attention span short. Language function intact. Mood and affect remains anxious at times. Laboratory Data: Reviewed. Impression: Bipolar disorder manic with psychotic features. Anxiety disorder unspecified. Rest unchanged. Plan: No change from initial note. Assessment: Vital Signs/I&O: Vital Signs Date Time Temp Pulse Resp B/P (MAP) Pulse Ox O2 Delivery O2 Flow Rate FiO2 02/21/20 09:00 54 147/80 02/21/20 05:46 98.6 16 93 02/20/20 15:37 Room Air I & O 02/20/20 02/20/20 02/21/20 15:00 23:00 07:00 Intake Total 720 ml 600 ml Balance 720 ml 600 ml Labs: Laboratory Tests Test 02/21/20 06:12 02/21/20 07:34 White Blood Count 7.9 x10^3/uL (4.0-11.0) Red Blood Count 3.56 x10^6/uL (3.50-5.40) Hemoglobin 11.2 g/dL (12.0-15.5) L Hematocrit 33.1 % (36.0-47.0) L Mean Corpuscular Volume 93 fL (79-100) Mean Corpuscular Hemoglobin 32 pg (25-35) Mean Corpuscular Hemoglobin Concent 34 g/dL (31-37) Red Cell Distribution Width 15.9 % (11.5-14.5) H Platelet Count 275 x10^3/uL (140-400) Neutrophils (%) (Auto) 54 % (31-73) Lymphocytes (%) (Auto) 24 % (24-48) Monocytes (%) (Auto) 19 % (0-9) H Eosinophils (%) (Auto) 3 % (0-3) Basophils (%) (Auto) 1 % (0-3) Neutrophils # (Auto) 4.2 x10^3uL (1.8-7.7) Lymphocytes # (Auto) 1.9 x10^3/uL (1.0-4.8) Monocytes # (Auto) 1.5 x10^3/uL (0.0-1.1) H Eosinophils # (Auto) 0.2 x10^3/uL (0.0-0.7) Basophils # (Auto) 0.1 x10^3/uL (0.0-0.2) Sodium Level 142 mmol/L (136-145) Potassium Level 4.7 mmol/L (3.5-5.1) Chloride Level 107 mmol/L (98-107) Carbon Dioxide Level 29 mmol/L (21-32) Anion Gap 6 (6-14) Blood Urea Nitrogen 35 mg/dL (7-20) H Creatinine 1.5 mg/dL (0.6-1.0) H Estimated GFR (Cockcroft-Gault) 34.3 BUN/Creatinine Ratio 23 (6-20) H Glucose Level 110 mg/dL (70-99) H Calcium Level 9.2 mg/dL (8.5-10.1) Total Bilirubin 0.3 mg/dL (0.2-1.0) Aspartate Amino Transferase (AST) 8 U/L (15-37) L Alanine Aminotransferase (ALT) 20 U/L (14-59) Alkaline Phosphatase 64 U/L (46-116) Total Protein 6.7 g/dL (6.4-8.2) Albumin 2.9 g/dL (3.4-5.0) L Albumin/Globulin Ratio 0.8 (1.0-1.7) L Glucose (Fingerstick) 107 mg/dL (70-99) H Current Medications: Meds: Current Medications Medications (Trade) Dose Ordered Sig/Annika Route PRN Reason Start Time Stop Time Status Last Admin Dose Admin Risperidone (RisperDAL) 0.5 mg QHS PO 02/20/20 21:00 02/20/20 20:58 I have reviewed the current psychotropics carefully including drug interactions. Risk benefit ratio favors no change other than as noted in my dictated progress note. Diagnosis: Problems: (1) Impulse control disorder, unspecified (2) Anxiety disorder, unspecified (3) Bipolar disorder, curr episode mixed, severe, with psychotic features JABARI ARBOLEDA MD Feb 21, 2020 11:40
--- NOTE | 2020-02-21 11:48 | PDOC ---
Exam Note: Avni Note: This note is a late entry for 02/19/2020 covers elements not covered in my initial note. Subjective: The patient was reviewed on telehealth rounds in the evening of 02/19/2020 with Dorinda BOND due to COVID-19 restrictions on the unit with no admissions and discharges. According to nursing staff, her moods have been up and down. She at times seems somewhat paranoid but less evident. I have received a message from [facility] staff that senior care staff are concerned about her ongoing paranoia and would like her medications further adjusted before she gets back to them. We will increase the Risperdal to 1.5 mg p.o. h.s. She slept 5-1/2 hours previous night. Review of Systems: Ambulation impaired with walker. No CV, , pulmonary, eye, ENT system symptoms on review. Mental Status Exam: Reasonably oriented to situation. She was quite verbal, interactive, less paranoid, delusional. Attention span short. Language function intact. Mood and affect remains anxious at times. Laboratory Data: Reviewed. Impression: Bipolar disorder manic with psychotic features. Anxiety disorder unspecified. Rest unchanged. Plan: No change from initial note. She is also on Aricept 10 mg a day, Wellbutrin XL 300 mg a day, Depakote ER 1500 mg h.s., trazodone 50 mg h.s. may repeat x1 and Zyprexa p.r.n. Assessment: Vital Signs/I&O: Vital Signs Date Time Temp Pulse Resp B/P (MAP) Pulse Ox O2 Delivery O2 Flow Rate FiO2 02/21/20 09:00 54 147/80 02/21/20 05:46 98.6 16 93 02/20/20 15:37 Room Air I & O 02/20/20 02/20/20 02/21/20 15:00 23:00 07:00 Intake Total 720 ml 600 ml Balance 720 ml 600 ml Labs: Laboratory Tests Test 02/21/20 06:12 02/21/20 07:34 White Blood Count 7.9 x10^3/uL (4.0-11.0) Red Blood Count 3.56 x10^6/uL (3.50-5.40) Hemoglobin 11.2 g/dL (12.0-15.5) L Hematocrit 33.1 % (36.0-47.0) L Mean Corpuscular Volume 93 fL (79-100) Mean Corpuscular Hemoglobin 32 pg (25-35) Mean Corpuscular Hemoglobin Concent 34 g/dL (31-37) Red Cell Distribution Width 15.9 % (11.5-14.5) H Platelet Count 275 x10^3/uL (140-400) Neutrophils (%) (Auto) 54 % (31-73) Lymphocytes (%) (Auto) 24 % (24-48) Monocytes (%) (Auto) 19 % (0-9) H Eosinophils (%) (Auto) 3 % (0-3) Basophils (%) (Auto) 1 % (0-3) Neutrophils # (Auto) 4.2 x10^3uL (1.8-7.7) Lymphocytes # (Auto) 1.9 x10^3/uL (1.0-4.8) Monocytes # (Auto) 1.5 x10^3/uL (0.0-1.1) H Eosinophils # (Auto) 0.2 x10^3/uL (0.0-0.7) Basophils # (Auto) 0.1 x10^3/uL (0.0-0.2) Sodium Level 142 mmol/L (136-145) Potassium Level 4.7 mmol/L (3.5-5.1) Chloride Level 107 mmol/L (98-107) Carbon Dioxide Level 29 mmol/L (21-32) Anion Gap 6 (6-14) Blood Urea Nitrogen 35 mg/dL (7-20) H Creatinine 1.5 mg/dL (0.6-1.0) H Estimated GFR (Cockcroft-Gault) 34.3 BUN/Creatinine Ratio 23 (6-20) H Glucose Level 110 mg/dL (70-99) H Calcium Level 9.2 mg/dL (8.5-10.1) Total Bilirubin 0.3 mg/dL (0.2-1.0) Aspartate Amino Transferase (AST) 8 U/L (15-37) L Alanine Aminotransferase (ALT) 20 U/L (14-59) Alkaline Phosphatase 64 U/L (46-116) Total Protein 6.7 g/dL (6.4-8.2) Albumin 2.9 g/dL (3.4-5.0) L Albumin/Globulin Ratio 0.8 (1.0-1.7) L Glucose (Fingerstick) 107 mg/dL (70-99) H Current Medications: Meds: Current Medications Medications (Trade) Dose Ordered Sig/Annika Route PRN Reason Start Time Stop Time Status Last Admin Dose Admin Risperidone (RisperDAL) 0.5 mg QHS PO 02/20/20 21:00 02/20/20 20:58 I have reviewed the current psychotropics carefully including drug interactions. Risk benefit ratio favors no change other than as noted in my dictated progress note. Diagnosis: Problems: (1) Impulse control disorder, unspecified (2) Anxiety disorder, unspecified (3) Bipolar disorder, curr episode mixed, severe, with psychotic features JABARI ARBOLEDA MD Feb 21, 2020 11:48
--- NOTE | 2020-02-21 11:56 | PDOC ---
Exam Note: Avni Note: This note is a late entry for 02/20/2020 covers elements not covered in my initial note. Subjective: The patient was reviewed on telehealth rounds in the evening of 02/20/2020 with Cecilia BOND due to COVID-19 restrictions on the unit with no admissions and discharges. Per Ana Laura BOND in the evening, she slept 7 hours previous night. The patient is oriented x4, less delusional. I questioned her on her marriage plans and she smiled and said she had no such plans. She was she was diagnosed by Dr. Hall with autism, unsure of this. Review of Systems: Ambulation impaired with walker. No CV, , pulmonary, eye, ENT system symptoms on review. Mental Status Exam: Oriented x4. She was quite verbal, interactive. Attention span short. Language function intact. Mood and affect remains anxious at times. Laboratory Data: Reviewed. Impression: Bipolar disorder manic with psychotic features. Anxiety disorder unspecified. Rest unchanged. Plan: No change from initial note. Assessment: Vital Signs/I&O: Vital Signs Date Time Temp Pulse Resp B/P (MAP) Pulse Ox O2 Delivery O2 Flow Rate FiO2 02/21/20 09:00 54 147/80 02/21/20 05:46 98.6 16 93 02/20/20 15:37 Room Air I & O 02/20/20 02/20/20 02/21/20 15:00 23:00 07:00 Intake Total 720 ml 600 ml Balance 720 ml 600 ml Labs: Laboratory Tests Test 02/21/20 06:12 02/21/20 07:34 White Blood Count 7.9 x10^3/uL (4.0-11.0) Red Blood Count 3.56 x10^6/uL (3.50-5.40) Hemoglobin 11.2 g/dL (12.0-15.5) L Hematocrit 33.1 % (36.0-47.0) L Mean Corpuscular Volume 93 fL (79-100) Mean Corpuscular Hemoglobin 32 pg (25-35) Mean Corpuscular Hemoglobin Concent 34 g/dL (31-37) Red Cell Distribution Width 15.9 % (11.5-14.5) H Platelet Count 275 x10^3/uL (140-400) Neutrophils (%) (Auto) 54 % (31-73) Lymphocytes (%) (Auto) 24 % (24-48) Monocytes (%) (Auto) 19 % (0-9) H Eosinophils (%) (Auto) 3 % (0-3) Basophils (%) (Auto) 1 % (0-3) Neutrophils # (Auto) 4.2 x10^3uL (1.8-7.7) Lymphocytes # (Auto) 1.9 x10^3/uL (1.0-4.8) Monocytes # (Auto) 1.5 x10^3/uL (0.0-1.1) H Eosinophils # (Auto) 0.2 x10^3/uL (0.0-0.7) Basophils # (Auto) 0.1 x10^3/uL (0.0-0.2) Sodium Level 142 mmol/L (136-145) Potassium Level 4.7 mmol/L (3.5-5.1) Chloride Level 107 mmol/L (98-107) Carbon Dioxide Level 29 mmol/L (21-32) Anion Gap 6 (6-14) Blood Urea Nitrogen 35 mg/dL (7-20) H Creatinine 1.5 mg/dL (0.6-1.0) H Estimated GFR (Cockcroft-Gault) 34.3 BUN/Creatinine Ratio 23 (6-20) H Glucose Level 110 mg/dL (70-99) H Calcium Level 9.2 mg/dL (8.5-10.1) Total Bilirubin 0.3 mg/dL (0.2-1.0) Aspartate Amino Transferase (AST) 8 U/L (15-37) L Alanine Aminotransferase (ALT) 20 U/L (14-59) Alkaline Phosphatase 64 U/L (46-116) Total Protein 6.7 g/dL (6.4-8.2) Albumin 2.9 g/dL (3.4-5.0) L Albumin/Globulin Ratio 0.8 (1.0-1.7) L Glucose (Fingerstick) 107 mg/dL (70-99) H Current Medications: Meds: Current Medications Medications (Trade) Dose Ordered Sig/Annika Route PRN Reason Start Time Stop Time Status Last Admin Dose Admin Risperidone (RisperDAL) 0.5 mg QHS PO 02/20/20 21:00 02/20/20 20:58 I have reviewed the current psychotropics carefully including drug interactions. Risk benefit ratio favors no change other than as noted in my dictated progress note. Diagnosis: Problems: (1) Impulse control disorder, unspecified (2) Anxiety disorder, unspecified (3) Bipolar disorder, curr episode mixed, severe, with psychotic features JABARI ARBOLEDA MD Feb 21, 2020 11:56
[2020-02-21 15:27] VITALS: BP 128/76
[2020-02-21] MEDS: DIVALPROEX ER 500 MG TAB.ER.24H PO SCH (20:00)
[2020-02-21] MEDS: risperiDONE 1 MG TABLET. PO SCH (20:01)
[2020-02-21] MEDS: DONEPEZIL HCL 10 MG TABLET PO SCH (20:01)
[2020-02-21] MEDS: PANTOPRAZOLE 40 MG TABLET. PO SCH (20:01)
[2020-02-21] MEDS: traZODone 50 MG TABLET. PO SCH (20:02)
[2020-02-21] MEDS: MONTELUKAST 10 MG TABLET. PO SCH (20:02)
[2020-02-21] MEDS: OXYBUTYNIN CHLORIDE 5 MG TABLET PO SCH (20:02)
[2020-02-21] MEDS: risperiDONE 0.5 MG TABLET. PO SCH (20:02)
--- NOTE | 2020-02-21 21:53 | PDOC ---
Exam Note: Avni Note: Please also refer to the separate dictated note~for this date of service dictated separately.~Patient seen individually. Discussed the patient with Nursing staff reviewed the chart.~Reviewed interim history and current functioning. Reviewed vital signs,~Labs/ Radiology~and current medications noted below. Continue current treatment with the changes noted in the dictated addendum note Assessment: Vital Signs/I&O: Vital Signs Date Time Temp Pulse Resp B/P (MAP) Pulse Ox O2 Delivery O2 Flow Rate FiO2 02/21/20 21:00 98.4 94 02/21/20 20:01 56 128/76 02/21/20 15:27 18 Room Air I & O 02/20/20 02/20/20 02/21/20 15:00 23:00 07:00 Intake Total 720 ml 600 ml Balance 720 ml 600 ml Labs: Laboratory Tests Test 02/21/20 06:12 02/21/20 07:34 White Blood Count 7.9 x10^3/uL (4.0-11.0) Red Blood Count 3.56 x10^6/uL (3.50-5.40) Hemoglobin 11.2 g/dL (12.0-15.5) L Hematocrit 33.1 % (36.0-47.0) L Mean Corpuscular Volume 93 fL (79-100) Mean Corpuscular Hemoglobin 32 pg (25-35) Mean Corpuscular Hemoglobin Concent 34 g/dL (31-37) Red Cell Distribution Width 15.9 % (11.5-14.5) H Platelet Count 275 x10^3/uL (140-400) Neutrophils (%) (Auto) 54 % (31-73) Lymphocytes (%) (Auto) 24 % (24-48) Monocytes (%) (Auto) 19 % (0-9) H Eosinophils (%) (Auto) 3 % (0-3) Basophils (%) (Auto) 1 % (0-3) Neutrophils # (Auto) 4.2 x10^3uL (1.8-7.7) Lymphocytes # (Auto) 1.9 x10^3/uL (1.0-4.8) Monocytes # (Auto) 1.5 x10^3/uL (0.0-1.1) H Eosinophils # (Auto) 0.2 x10^3/uL (0.0-0.7) Basophils # (Auto) 0.1 x10^3/uL (0.0-0.2) Sodium Level 142 mmol/L (136-145) Potassium Level 4.7 mmol/L (3.5-5.1) Chloride Level 107 mmol/L (98-107) Carbon Dioxide Level 29 mmol/L (21-32) Anion Gap 6 (6-14) Blood Urea Nitrogen 35 mg/dL (7-20) H Creatinine 1.5 mg/dL (0.6-1.0) H Estimated GFR (Cockcroft-Gault) 34.3 BUN/Creatinine Ratio 23 (6-20) H Glucose Level 110 mg/dL (70-99) H Calcium Level 9.2 mg/dL (8.5-10.1) Total Bilirubin 0.3 mg/dL (0.2-1.0) Aspartate Amino Transferase (AST) 8 U/L (15-37) L Alanine Aminotransferase (ALT) 20 U/L (14-59) Alkaline Phosphatase 64 U/L (46-116) Total Protein 6.7 g/dL (6.4-8.2) Albumin 2.9 g/dL (3.4-5.0) L Albumin/Globulin Ratio 0.8 (1.0-1.7) L Glucose (Fingerstick) 107 mg/dL (70-99) H Current Medications: I have reviewed the current psychotropics carefully including drug interactions. Risk benefit ratio favors no change other than as noted in my dictated progress note. Diagnosis: Problems: (1) Impulse control disorder, unspecified (2) Anxiety disorder, unspecified (3) Bipolar disorder, curr episode mixed, severe, with psychotic features JABARI ARBOLEDA MD Feb 21, 2020 21:53
--- NOTE | 2020-02-21 22:34 | NUR ---
Nursing Note Upon entering her room for meds and assessments, pt greets me with "I need, help, I need new sheets, I need water, I need tissues, I want food how about pudding." I abruptly interrupted her and stated I was there to give her night medications and no demand would be addressed by staff until she took her meds. And reminded her that she shouldn't introduce herself with demands when staff enter her room. She takes a very long time swirling her spoon around in the yogurt and medications I gave her. The meds were in the first 2 bites but then she was playing with the rest as I waited to give her eye drops and inhaler. I informed her that I would be happy to return after she was finished with the yogurt that I had to treat other patients at that time. Pt continues to make demands to the [employer]'s for various items. Firm boundaries implemented to keep patient on task. Pt now resting in bed.
[2020-02-22] MEDS: LEVOTHYROXINE 125 MCG TABLET PO SCH (04:25)
[2020-02-22] MEDS: POLYETHYLENE GLYCOL 3350 17 GM PACKET. PO SCH (04:26)
[2020-02-22] MEDS: metFORMIN 500 MG TABLET PO SCH (04:27)
[2020-02-22] MEDS: LACTOBACILLUS RHAMNOSUS GG 1 CAPSULE. PO SCH ×2 (04:27→20:32)
[2020-02-22] MEDS: MAGNESIUM CHLORIDE ER 64 MG TABLET.ER PO SCH (04:27)
[2020-02-22] MEDS: MULTIVITAMIN with MINERAL TABLET. PO SCH (04:28)
[2020-02-22] MEDS: buPROPion XL 300 MG TAB.ER.24H. PO SCH (04:28)
[2020-02-22] MEDS: CALCIUM CARB/VIT D3 500/200 TABLET PO SCH (04:28)
[2020-02-22] MEDS: DOCUSATE SODIUM 100 MG CAPSULE PO SCH (04:28)
[2020-02-22] MEDS: hydrALAZINE 25 MG TABLET PO SCH ×3 (04:29→20:40)
[2020-02-22] MEDS: FERROUS SULFATE 325 MG TABLET. PO SCH (04:29)
[2020-02-22] MEDS: FUROSEMIDE 40 MG TABLET PO SCH (04:29)
[2020-02-22] MEDS: ATENOLOL 50 MG TABLET PO SCH (04:30)
[2020-02-22] MEDS: amLODIPine BESYLATE 10 MG TABLET PO SCH (04:30)
[2020-02-22] MEDS: POLYVINYL ALCOHOL 1.4% OPHTH SOLUTION 15ML BOTTLE. OU SCH ×2 (04:32→20:27)
[2020-02-22] MEDS: ALBUTEROL SULFATE 8GM INHALER. INH SCH ×2 (04:32→20:27)
[2020-02-22] MEDS: FLUTICASONE 50MCG/NASAL SPRAY 16GM BOTTLE. NS SCH (04:33)
[2020-02-22 05:50] VITALS: BP 150/80
--- NOTE | 2020-02-22 07:30 | NUR ---
Nursing Note Pt still demanding, asks for multiple items without an introduction, just starts firing off requests. Reminded her of my reason for being there and that she needs to not barrage staff with demands when we enter her room.
[2020-02-22 16:30] VITALS: BP 123/78
--- NOTE | 2020-02-22 17:54 | NUR ---
This nurse assumed care of patient at 1100. Patient in her room most of the day but did participate in a group held outside. Patient had an incontinent episode in her bed and in the chair. Patient was found to be not wearing a brief while sitting in a chair in the day room and was wearing her hospital gown backwards. Nurse assisted patient into clean brief and gown. Patient has made many requests today (drinks, activities, snacks, etc) Patient requested to have a bedside commode placed in her room "so she would not have to go as far to the toilet". Nurse provided education to patient regarding ambulation and exercise by walking to bathroom. Patient later requested to have a "white triangle" put in her toilet. This was clarified to mean a urine collection hat. Patient stated she wanted it to be sure that she had a BM because she "cannot tell". Patient has active bowel sounds and denies constipation when asked. Patient is Patient denied abdominal pain (gall stones) and tooth/face pain. Her left side of her face still appears swollen.
[2020-02-22] MEDS: DIVALPROEX ER 500 MG TAB.ER.24H PO SCH (20:27)
[2020-02-22] MEDS: risperiDONE 1 MG TABLET. PO SCH (20:28)
[2020-02-22] MEDS: risperiDONE 0.5 MG TABLET. PO SCH (20:29)
[2020-02-22] MEDS: OXYBUTYNIN CHLORIDE 5 MG TABLET PO SCH (20:32)
[2020-02-22] MEDS: PANTOPRAZOLE 40 MG TABLET. PO SCH (20:32)
[2020-02-22] MEDS: traZODone 50 MG TABLET. PO SCH (20:32)
[2020-02-22] MEDS: DONEPEZIL HCL 10 MG TABLET PO SCH (20:32)
[2020-02-22] MEDS: MONTELUKAST 10 MG TABLET. PO SCH (20:32)
[2020-02-22 20:51] VITALS: BP 132/66
--- NOTE | 2020-02-22 20:58 | NUR ---
Patient is compliant with medications, she took them whole in apple sauce. Patient asked nurse "what she looks for in a man". Patient stated that she looks for "kindness". Patient had been coloring a picture in her room most of the evening. Patient is calm and cooperative. Patient did not mention any delusions during conversation with nurse and denied them when asked.
--- NOTE | 2020-02-22 21:53 | PDOC ---
Exam Note: Avni Note: Please also refer to the separate dictated note~for this date of service dictated separately.~Patient seen individually. Discussed the patient with Nursing staff reviewed the chart.~Reviewed interim history and current functioning. Reviewed vital signs,~Labs/ Radiology~and current medications noted below. Continue current treatment with the changes noted in the dictated addendum note Assessment: Vital Signs/I&O: Vital Signs Date Time Temp Pulse Resp B/P (MAP) Pulse Ox O2 Delivery O2 Flow Rate FiO2 02/22/20 20:51 51 132/66 (88) 98 Room Air 02/22/20 16:30 98.1 16 I & O 02/21/20 02/21/20 02/22/20 15:00 23:00 07:00 Intake Total 750 ml 460 ml Balance 750 ml 460 ml Labs: Laboratory Tests Test 02/22/20 07:44 Glucose (Fingerstick) 99 mg/dL (70-99) Current Medications: Meds: Current Medications Medications (Trade) Dose Ordered Sig/Annika Route PRN Reason Start Time Stop Time Status Last Admin Dose Admin Risperidone (RisperDAL) 0.75 mg QHS PO 02/22/20 21:00 02/22/20 20:29 I have reviewed the current psychotropics carefully including drug interactions. Risk benefit ratio favors no change other than as noted in my dictated progress note. Diagnosis: Problems: (1) Impulse control disorder, unspecified (2) Anxiety disorder, unspecified (3) Bipolar disorder, curr episode mixed, severe, with psychotic features JABARI ARBOLEDA MD Feb 22, 2020 21:53
[2020-02-23] MEDS: traZODone 50 MG TABLET. PO PRN (00:35)
[2020-02-23] MEDS: LEVOTHYROXINE 125 MCG TABLET PO SCH (06:00)
[2020-02-23 06:19] VITALS: BP_SYST 160; BP_SYST 190; BP_DIAS 78; BP_DIAS 79
--- NOTE | 2020-02-23 06:34 | PDOC ---
Exam Note: Avni Note: This note is a late entry for 02/21/2020 covers elements not covered in my initial note. Subjective: The patient was reviewed on telehealth rounds due to COVID-19 restrictions on the unit in the evening of 02/21/2020 with Ana Laura BOND. She slept 6-1/2 hours previous night. She had a telephone call with her daughter. Initially she said it went well. Later as I met with her on telehealth rounds in the evening she said the first half went well but second half did not go well. When I questioned her on what was not well with the second half, she had a hard time coming up with this. We will have nursing staff explore this with her. Review of Systems: Ambulation impaired with walker. No CV, , pulmonary, eye, ENT system symptoms on review. Mental Status Exam: Reasonably oriented. She was quite verbal, interactive. Attention span short. Language function intact. Mood and affect remains anxious at times. Laboratory Data: Reviewed. Impression: Bipolar disorder manic with psychotic features. Anxiety disorder unspecified. Rest unchanged. Plan: No change from initial note. Assessment: Vital Signs/I&O: Vital Signs Date Time Temp Pulse Resp B/P (MAP) Pulse Ox O2 Delivery O2 Flow Rate FiO2 02/23/20 06:19 98.2 48 18 160/79 (106) 98 02/22/20 20:51 Room Air I & O 02/22/20 02/22/20 02/23/20 15:00 23:00 07:00 Intake Total 840 ml 600 ml Balance 840 ml 600 ml Labs: Laboratory Tests Test 02/22/20 07:44 Glucose (Fingerstick) 99 mg/dL (70-99) Current Medications: Meds: Current Medications Medications (Trade) Dose Ordered Sig/Annika Route PRN Reason Start Time Stop Time Status Last Admin Dose Admin Risperidone (RisperDAL) 0.75 mg QHS PO 02/22/20 21:00 02/22/20 20:29 I have reviewed the current psychotropics carefully including drug interactions. Risk benefit ratio favors no change other than as noted in my dictated progress note. Diagnosis: Problems: (1) Impulse control disorder, unspecified (2) Anxiety disorder, unspecified (3) Bipolar disorder, curr episode mixed, severe, with psychotic features JABARI ARBOLEDA MD Feb 23, 2020 06:33
--- NOTE | 2020-02-23 06:43 | PDOC ---
Exam Note: Avni Note: This note is a late entry for 02/22/2020 covers elements not covered in my initial note. Subjective: The patient was reviewed on telehealth rounds due to COVID-19 restrictions on the unit in the morning of 02/22/2020 with treatment team with Karlee Perdue and Melvi (social media strategist) and Ange BOND. Per nursing report, her sleeping average 5-6 hours. She slept 6-3/4 hours previous night. She is somewhat needy, anxious. Appetite is 100%. Review of Systems: Ambulation impaired with walker. No CV, , pulmonary, eye, ENT system symptoms on review. Mental Status Exam: Oriented reasonably. She remains anxious, restless, somewhat distractible during the individual visit. Speech coherent. Abstraction fair. Computation impaired. Language function intact. Mood and affect remains anxious at times. No suicidal or homicidal ideation. Laboratory Data: Reviewed. Impression: Bipolar disorder manic with psychotic features. Anxiety disorder unspecified. Rest unchanged. Plan: No change from initial note. Increase Risperdal to 1.75 mg p.o. h.s. Continue rest psychotropics unchanged. Assessment: Vital Signs/I&O: Vital Signs Date Time Temp Pulse Resp B/P (MAP) Pulse Ox O2 Delivery O2 Flow Rate FiO2 02/23/20 06:19 98.2 48 18 160/79 (106) 98 02/22/20 20:51 Room Air I & O 02/22/20 02/22/20 02/23/20 15:00 23:00 07:00 Intake Total 840 ml 600 ml Balance 840 ml 600 ml Labs: Laboratory Tests Test 02/22/20 07:44 Glucose (Fingerstick) 99 mg/dL (70-99) Current Medications: Meds: Current Medications Medications (Trade) Dose Ordered Sig/Annika Route PRN Reason Start Time Stop Time Status Last Admin Dose Admin Risperidone (RisperDAL) 0.75 mg QHS PO 02/22/20 21:00 02/22/20 20:29 I have reviewed the current psychotropics carefully including drug interactions. Risk benefit ratio favors no change other than as noted in my dictated progress note. Diagnosis: Problems: (1) Impulse control disorder, unspecified (2) Anxiety disorder, unspecified (3) Bipolar disorder, curr episode mixed, severe, with psychotic features JABARI ARBOLEDA MD Feb 23, 2020 06:43
[2020-02-23] MEDS: ALBUTEROL SULFATE 8GM INHALER. INH SCH ×2 (07:55→20:27)
[2020-02-23] MEDS: POLYVINYL ALCOHOL 1.4% OPHTH SOLUTION 15ML BOTTLE. OU SCH ×2 (07:55→20:27)
[2020-02-23] MEDS: FLUTICASONE 50MCG/NASAL SPRAY 16GM BOTTLE. NS SCH (07:55)
[2020-02-23] MEDS: hydrALAZINE 25 MG TABLET PO SCH ×3 (07:56→20:29)
[2020-02-23] MEDS: FUROSEMIDE 40 MG TABLET PO SCH (07:56)
[2020-02-23] MEDS: POLYETHYLENE GLYCOL 3350 17 GM PACKET. PO SCH (07:56)
[2020-02-23] MEDS: MAGNESIUM CHLORIDE ER 64 MG TABLET.ER PO SCH (07:56)
[2020-02-23] MEDS: LACTOBACILLUS RHAMNOSUS GG 1 CAPSULE. PO SCH ×2 (07:57→20:30)
[2020-02-23] MEDS: buPROPion XL 300 MG TAB.ER.24H. PO SCH (07:57)
[2020-02-23] MEDS: MULTIVITAMIN with MINERAL TABLET. PO SCH (07:57)
[2020-02-23] MEDS: ATENOLOL 50 MG TABLET PO SCH (07:57)
[2020-02-23] MEDS: DOCUSATE SODIUM 100 MG CAPSULE PO SCH (07:57)
[2020-02-23] MEDS: amLODIPine BESYLATE 10 MG TABLET PO SCH (07:58)
[2020-02-23] MEDS: metFORMIN 500 MG TABLET PO SCH (07:58)
[2020-02-23] MEDS: CALCIUM CARB/VIT D3 500/200 TABLET PO SCH (07:58)
[2020-02-23] MEDS: FERROUS SULFATE 325 MG TABLET. PO SCH (07:58)
--- NOTE | 2020-02-23 11:03 | NUR ---
SHAKA returned call to Carla at [facility]. Carla reports that they will not accept pt back until the . She clarified with SHAKA that the last positive on the unit was 02/15; in which SHAKA confirmed. SHAKA clarified for Carla that [facility] is abiding by the health department directives. When the meeting was held on Wednesday the health department informed us that if all staff were tested and all results were negative, the unit could start discharges and accept admissions. Carla asked if pt would remain in her room and SHAKA explained that for the most part she does stay in her room; however, she is allowed to come out as long as she wears a mask, which has not been an issue. Carla will go back and speak to her mysql database administrator, stating "until now, we won't take her until Thursday 03/01 as that is 2 weeks from your last positive. If I talk to the mysql database administrator and something changes, I'll let you know".
--- NOTE | 2020-02-23 11:40 | NUR ---
SHAKA left a message for Comfort, pt dtr, to contact SHAKA re: an update on pt and her discharge plans.
[2020-02-23 15:43] VITALS: BP 139/73
--- NOTE | 2020-02-23 16:23 | NUR ---
Pt has been up adl in room for meals and out to day room for small group. Has been compliant with meds and cares. Has voiced no delusions.
[2020-02-23] MEDS: risperiDONE 0.5 MG TABLET. PO SCH (20:27)
[2020-02-23] MEDS: OXYBUTYNIN CHLORIDE 5 MG TABLET PO SCH (20:28)
[2020-02-23] MEDS: PANTOPRAZOLE 40 MG TABLET. PO SCH (20:29)
[2020-02-23] MEDS: risperiDONE 1 MG TABLET. PO SCH (20:29)
[2020-02-23] MEDS: MONTELUKAST 10 MG TABLET. PO SCH (20:29)
[2020-02-23] MEDS: DONEPEZIL HCL 10 MG TABLET PO SCH (20:30)
[2020-02-23] MEDS: traZODone 50 MG TABLET. PO SCH (20:30)
[2020-02-23] MEDS: DIVALPROEX ER 500 MG TAB.ER.24H PO SCH (20:31)
--- NOTE | 2020-02-23 21:52 | PDOC ---
Exam Note: Avni Note: Please also refer to the separate dictated note~for this date of service dictated separately.~Patient seen individually. Discussed the patient with Nursing staff reviewed the chart.~Reviewed interim history and current functioning. Reviewed vital signs,~Labs/ Radiology~and current medications noted below. Continue current treatment with the changes noted in the dictated addendum note Assessment: Vital Signs/I&O: Vital Signs Date Time Temp Pulse Resp B/P (MAP) Pulse Ox O2 Delivery O2 Flow Rate FiO2 02/23/20 21:08 98.2 98 02/23/20 20:29 57 139/73 02/23/20 15:43 17 02/22/20 20:51 Room Air I & O 02/22/20 02/22/20 02/23/20 15:00 23:00 07:00 Intake Total 840 ml 600 ml Balance 840 ml 600 ml Labs: Laboratory Tests Test 02/23/20 07:42 Glucose (Fingerstick) 105 mg/dL (70-99) H Current Medications: I have reviewed the current psychotropics carefully including drug interactions. Risk benefit ratio favors no change other than as noted in my dictated progress note. Diagnosis: Problems: (1) Impulse control disorder, unspecified (2) Anxiety disorder, unspecified (3) Bipolar disorder, curr episode mixed, severe, with psychotic features JABARI ARBOLEDA MD Feb 23, 2020 21:52
--- NOTE | 2020-02-23 22:00 | NUR ---
Patient is in her room on assumption of care, sitting on the side of her bed coloring. She is in pleasant spirits. Compliant with assessments and medications floated whole in pudding. No agitation. Patient has voiced no delusions this shift. Denies any pain or discomfort. Patient appears to be sleeping comfortably at present time.
[2020-02-24] MEDS: LEVOTHYROXINE 125 MCG TABLET PO SCH (05:37)
[2020-02-24 06:19] VITALS: BP 144/79
[2020-02-24] MEDS: POLYVINYL ALCOHOL 1.4% OPHTH SOLUTION 15ML BOTTLE. OU SCH ×2 (08:04→20:28)
[2020-02-24] MEDS: ALBUTEROL SULFATE 8GM INHALER. INH SCH ×2 (08:04→20:27)
[2020-02-24] MEDS: POLYETHYLENE GLYCOL 3350 17 GM PACKET. PO SCH (08:04)
[2020-02-24] MEDS: MAGNESIUM CHLORIDE ER 64 MG TABLET.ER PO SCH (08:04)
[2020-02-24] MEDS: FLUTICASONE 50MCG/NASAL SPRAY 16GM BOTTLE. NS SCH (08:04)
[2020-02-24] MEDS: FUROSEMIDE 40 MG TABLET PO SCH (08:05)
[2020-02-24] MEDS: DOCUSATE SODIUM 100 MG CAPSULE PO SCH (08:05)
[2020-02-24] MEDS: CALCIUM CARB/VIT D3 500/200 TABLET PO SCH (08:05)
[2020-02-24] MEDS: metFORMIN 500 MG TABLET PO SCH (08:05)
[2020-02-24] MEDS: amLODIPine BESYLATE 10 MG TABLET PO SCH (08:05)
[2020-02-24] MEDS: buPROPion XL 300 MG TAB.ER.24H. PO SCH (08:06)
[2020-02-24] MEDS: ATENOLOL 50 MG TABLET PO SCH (08:06)
[2020-02-24] MEDS: LACTOBACILLUS RHAMNOSUS GG 1 CAPSULE. PO SCH ×2 (08:06→20:29)
[2020-02-24] MEDS: hydrALAZINE 25 MG TABLET PO SCH ×3 (08:06→20:29)
[2020-02-24] MEDS: FERROUS SULFATE 325 MG TABLET. PO SCH (08:06)
[2020-02-24] MEDS: MULTIVITAMIN with MINERAL TABLET. PO SCH (08:06)
[2020-02-24 15:29] VITALS: BP 130/69
--- NOTE | 2020-02-24 16:50 | NUR ---
Pt up adl in room. Has been compliant with meds and cares. Out to day room to watch a movie in afternoon. No delusions voiced noted today.
[2020-02-24] MEDS: DONEPEZIL HCL 10 MG TABLET PO SCH (20:29)
[2020-02-24] MEDS: PANTOPRAZOLE 40 MG TABLET. PO SCH (20:29)
[2020-02-24] MEDS: risperiDONE 1 MG TABLET. PO SCH (20:29)
[2020-02-24] MEDS: traZODone 50 MG TABLET. PO SCH (20:29)
[2020-02-24] MEDS: MONTELUKAST 10 MG TABLET. PO SCH (20:29)
[2020-02-24] MEDS: DIVALPROEX ER 500 MG TAB.ER.24H PO SCH (20:30)
[2020-02-24] MEDS: risperiDONE 0.5 MG TABLET. PO SCH (20:30)
[2020-02-24] MEDS: OXYBUTYNIN CHLORIDE 5 MG TABLET PO SCH (20:31)
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
--- NOTE | 2020-02-24 21:50 | PDOC ---
Exam Note: Avni Note: Please also refer to the separate dictated note~for this date of service dictated separately.~Patient seen individually. Discussed the patient with Nursing staff reviewed the chart.~Reviewed interim history and current functioning. Reviewed vital signs,~Labs/ Radiology~and current medications noted below. Continue current treatment with the changes noted in the dictated addendum note Assessment: Vital Signs/I&O: Vital Signs Date Time Temp Pulse Resp B/P (MAP) Pulse Ox O2 Delivery O2 Flow Rate FiO2 02/24/20 20:29 65 130/69 02/24/20 20:00 98.2 97 Room Air 02/24/20 15:29 20 I & O 02/23/20 02/23/20 02/24/20 15:00 23:00 07:00 Intake Total 480 ml 720 ml Balance 480 ml 720 ml Labs: Laboratory Tests Test 02/24/20 07:32 Glucose (Fingerstick) 81 mg/dL (70-99) Current Medications: Meds: Current Medications Medications (Trade) Dose Ordered Sig/Annika Route PRN Reason Start Time Stop Time Status Last Admin Dose Admin Oxybutynin Chloride (Ditropan) 5 mg BID PO 02/24/20 21:00 02/24/20 20:31 I have reviewed the current psychotropics carefully including drug interactions. Risk benefit ratio favors no change other than as noted in my dictated progress note. Diagnosis: Problems: (1) Impulse control disorder, unspecified (2) Anxiety disorder, unspecified (3) Bipolar disorder, curr episode mixed, severe, with psychotic features JABARI ARBOLEDA MD Feb 24, 2020 21:50
[2020-02-25 05:28] VITALS: BP 173/63
[2020-02-25] MEDS: LEVOTHYROXINE 125 MCG TABLET PO SCH (05:34)
[2020-02-25] MEDS: POLYETHYLENE GLYCOL 3350 17 GM PACKET. PO SCH (07:35)
[2020-02-25] MEDS: MAGNESIUM CHLORIDE ER 64 MG TABLET.ER PO SCH (07:35)
[2020-02-25] MEDS: CALCIUM CARB/VIT D3 500/200 TABLET PO SCH (07:35)
[2020-02-25] MEDS: LACTOBACILLUS RHAMNOSUS GG 1 CAPSULE. PO SCH ×2 (07:36→20:36)
[2020-02-25] MEDS: DOCUSATE SODIUM 100 MG CAPSULE PO SCH (07:36)
[2020-02-25] MEDS: amLODIPine BESYLATE 10 MG TABLET PO SCH (07:36)
[2020-02-25] MEDS: ATENOLOL 50 MG TABLET PO SCH (07:36)
[2020-02-25] MEDS: MULTIVITAMIN with MINERAL TABLET. PO SCH (07:36)
[2020-02-25] MEDS: FUROSEMIDE 40 MG TABLET PO SCH (07:36)
[2020-02-25] MEDS: FERROUS SULFATE 325 MG TABLET. PO SCH (07:37)
[2020-02-25] MEDS: metFORMIN 500 MG TABLET PO SCH (07:37)
[2020-02-25] MEDS: hydrALAZINE 25 MG TABLET PO SCH ×3 (07:37→20:36)
[2020-02-25] MEDS: OXYBUTYNIN CHLORIDE 5 MG TABLET PO SCH ×2 (07:37→20:36)
[2020-02-25] MEDS: buPROPion XL 300 MG TAB.ER.24H. PO SCH (07:37)
[2020-02-25] MEDS: ALBUTEROL SULFATE 8GM INHALER. INH SCH ×2 (07:38→20:35)
[2020-02-25] MEDS: FLUTICASONE 50MCG/NASAL SPRAY 16GM BOTTLE. NS SCH (07:38)
[2020-02-25] MEDS: POLYVINYL ALCOHOL 1.4% OPHTH SOLUTION 15ML BOTTLE. OU SCH ×2 (07:38→20:35)
--- NOTE | 2020-02-25 09:34 | NUR ---
Pt up for breakfast. Compliant with meds. Voices no c/o or delusions at this time.
[2020-02-25 15:21] VITALS: BP 133/74
[2020-02-25] MEDS: DIVALPROEX ER 500 MG TAB.ER.24H PO SCH (20:35)
[2020-02-25] MEDS: PANTOPRAZOLE 40 MG TABLET. PO SCH (20:35)
[2020-02-25] MEDS: DONEPEZIL HCL 10 MG TABLET PO SCH (20:36)
[2020-02-25] MEDS: risperiDONE 1 MG TABLET. PO SCH (20:36)
[2020-02-25] MEDS: risperiDONE 0.5 MG TABLET. PO SCH (20:36)
[2020-02-25] MEDS: traZODone 50 MG TABLET. PO SCH (20:36)
[2020-02-25] MEDS: MONTELUKAST 10 MG TABLET. PO SCH (20:36)
--- NOTE | 2020-02-25 21:53 | PDOC ---
Exam Note: Avni Note: Please also refer to the separate dictated note~for this date of service dictated separately.~Patient seen individually. Discussed the patient with Nursing staff reviewed the chart.~Reviewed interim history and current functioning. Reviewed vital signs,~Labs/ Radiology~and current medications noted below. Continue current treatment with the changes noted in the dictated addendum note Assessment: Vital Signs/I&O: Vital Signs Date Time Temp Pulse Resp B/P (MAP) Pulse Ox O2 Delivery O2 Flow Rate FiO2 02/25/20 21:01 98.3 99 02/25/20 20:36 60 133/74 02/25/20 15:21 18 Room Air I & O 02/24/20 02/24/20 02/25/20 15:00 23:00 07:00 Intake Total 720 ml 360 ml Balance 720 ml 360 ml Labs: Laboratory Tests Test 02/25/20 08:08 Glucose (Fingerstick) 95 mg/dL (70-99) Current Medications: I have reviewed the current psychotropics carefully including drug interactions. Risk benefit ratio favors no change other than as noted in my dictated progress note. Diagnosis: Problems: (1) Impulse control disorder, unspecified (2) Anxiety disorder, unspecified (3) Bipolar disorder, curr episode mixed, severe, with psychotic features JABARI ARBOLEDA MD Feb 25, 2020 21:53
--- NOTE | 2020-02-25 21:55 | NUR ---
Pt located in her room all evening. Compliant with whole medications floated in yogurt. No delusions voiced this evening. Pt currently awake in her room listening to music on the [place].
[2020-02-26] MEDS: LEVOTHYROXINE 125 MCG TABLET PO SCH (05:10)
[2020-02-26 05:22] VITALS: BP 127/67
--- NOTE | 2020-02-26 06:53 | PDOC ---
Exam Note: Avni Note: This note is a late entry for 02/23/2020 covers elements not covered in my initial note. Subjective: The patient was reviewed on telehealth rounds due to COVID-19 restrictions on the unit in the evening of 02/23/2020 with Brenda BOND. Discussed with nursing staff, reviewed the chart. She slept reasonably well 5- 1/4 hours previous night. She urinated on the floor previous night and did well during the day. Review of Systems: No CV, , pulmonary, eye, ENT system symptoms on review. Mental Status Exam: Oriented reasonably. She was dismissive as I met with her, but clearly stated she had no plans of getting . Speech coherent. Abstraction fair. Computation impaired. Language function intact. Mood and affect, she is much less paranoid, delusional despite my specific and persisted questioning on this. No suicidal or homicidal ideation. Laboratory Data: Reviewed. Impression: Bipolar disorder manic with psychotic features. Anxiety disorder unspecified. Rest unchanged. Plan: No change from initial note. Assessment: Vital Signs/I&O: Vital Signs Date Time Temp Pulse Resp B/P (MAP) Pulse Ox O2 Delivery O2 Flow Rate FiO2 02/26/20 05:22 98.5 54 18 127/67 (87) 92 02/25/20 15:21 Room Air I & O 02/25/20 02/25/20 02/26/20 14:59 22:59 06:59 Intake Total 820 ml 600 ml Balance 820 ml 600 ml Labs: Laboratory Tests Test 02/25/20 08:08 Glucose (Fingerstick) 95 mg/dL (70-99) Current Medications: I have reviewed the current psychotropics carefully including drug interactions. Risk benefit ratio favors no change other than as noted in my dictated progress note. Diagnosis: Problems: (1) Impulse control disorder, unspecified (2) Anxiety disorder, unspecified (3) Bipolar disorder, curr episode mixed, severe, with psychotic features JABARI ARBOLEDA MD Feb 26, 2020 06:53
--- NOTE | 2020-02-26 07:00 | PDOC ---
Exam Note: Avni Note: This note is a late entry for 02/24/2020 covers elements not covered in my initial note. Subjective: The patient was reviewed on telehealth rounds due to COVID-19 restrictions on the unit in the evening of 02/24/2020 with Brenda BOND. Discussed with nursing staff, reviewed the chart. She was assisting staff, made popcorn in the afternoon, less delusional. Review of Systems: Ambulation impaired with walker. No CV, , pulmonary, eye, ENT system symptoms on review. Mental Status Exam: Oriented reasonably. I questioned her persistently whether she wanted to get and she was quite clear that she dropped those plans and was smiling. Speech coherent. Abstraction fair. Computation impaired. Language function intact. Mood and affect remains anxious at times. Laboratory Data: Reviewed. Impression: Bipolar disorder manic with psychotic features. Anxiety disorder unspecified. Rest unchanged. Plan: No change from initial note. Assessment: Vital Signs/I&O: Vital Signs Date Time Temp Pulse Resp B/P (MAP) Pulse Ox O2 Delivery O2 Flow Rate FiO2 02/26/20 05:22 98.5 54 18 127/67 (87) 92 02/25/20 15:21 Room Air I & O 02/25/20 02/25/20 02/26/20 15:00 23:00 07:00 Intake Total 820 ml 600 ml Balance 820 ml 600 ml Labs: Laboratory Tests Test 02/25/20 08:08 Glucose (Fingerstick) 95 mg/dL (70-99) Current Medications: I have reviewed the current psychotropics carefully including drug interactions. Risk benefit ratio favors no change other than as noted in my dictated progress note. Diagnosis: Problems: (1) Impulse control disorder, unspecified (2) Anxiety disorder, unspecified (3) Bipolar disorder, curr episode mixed, severe, with psychotic features JABARI ARBOLEDA MD Feb 26, 2020 07:00
--- NOTE | 2020-02-26 07:07 | PDOC ---
Exam Note: Avni Note: This note is a late entry for 02/25/2020 covers elements not covered in my initial note. Subjective: The patient was reviewed on telehealth rounds due to COVID-19 restrictions on the unit in the evening of 02/25/2020 with Zeus BOND. Discussed with nursing staff, reviewed the chart. She slept 6 hours previous night. She was somewhat delusional previous night. Staff wonder whether Risperdal could be increased but we have just increased it 2 days back to 1.75 mg h.s. We will watch another day and then maybe up to 2 mg h.s. Review of Systems: Ambulation impaired. No CV, , pulmonary, eye, ENT system symptoms on review. Mental Status Exam: Oriented reasonably. She was somewhat dismissive stating why do I have to see her everyday and I processed this with her. Speech coherent. Abstraction fair. Computation impaired. Language function intact. Mood and affect remains anxious at times. No suicidal or homicidal ideation. Laboratory Data: Reviewed. Impression: Bipolar disorder manic with psychotic features. Anxiety disorder unspecified. Rest unchanged. Plan: No change from initial note. Assessment: Vital Signs/I&O: Vital Signs Date Time Temp Pulse Resp B/P (MAP) Pulse Ox O2 Delivery O2 Flow Rate FiO2 02/26/20 05:22 98.5 54 18 127/67 (87) 92 02/25/20 15:21 Room Air I & O 02/25/20 02/25/20 02/26/20 15:00 23:00 07:00 Intake Total 820 ml 600 ml Balance 820 ml 600 ml Labs: Laboratory Tests Test 02/25/20 08:08 Glucose (Fingerstick) 95 mg/dL (70-99) Current Medications: I have reviewed the current psychotropics carefully including drug interactions. Risk benefit ratio favors no change other than as noted in my dictated progress note. Diagnosis: Problems: (1) Impulse control disorder, unspecified (2) Anxiety disorder, unspecified (3) Bipolar disorder, curr episode mixed, severe, with psychotic features JABARI ARBOLEDA MD Feb 26, 2020 07:07
[2020-02-26] MEDS: FLUTICASONE 50MCG/NASAL SPRAY 16GM BOTTLE. NS SCH (08:31)
[2020-02-26] MEDS: POLYVINYL ALCOHOL 1.4% OPHTH SOLUTION 15ML BOTTLE. OU SCH ×2 (08:31→20:28)
[2020-02-26] MEDS: LACTOBACILLUS RHAMNOSUS GG 1 CAPSULE. PO SCH ×2 (08:32→20:27)
[2020-02-26] MEDS: MAGNESIUM CHLORIDE ER 64 MG TABLET.ER PO SCH (08:32)
[2020-02-26] MEDS: metFORMIN 500 MG TABLET PO SCH (08:32)
[2020-02-26] MEDS: ALBUTEROL SULFATE 8GM INHALER. INH SCH ×2 (08:32→20:28)
[2020-02-26] MEDS: amLODIPine BESYLATE 10 MG TABLET PO SCH (08:32)
[2020-02-26] MEDS: OXYBUTYNIN CHLORIDE 5 MG TABLET PO SCH ×2 (08:33→20:27)
[2020-02-26] MEDS: MULTIVITAMIN with MINERAL TABLET. PO SCH (08:33)
[2020-02-26] MEDS: buPROPion XL 300 MG TAB.ER.24H. PO SCH (08:33)
[2020-02-26] MEDS: CALCIUM CARB/VIT D3 500/200 TABLET PO SCH (08:33)
[2020-02-26] MEDS: FUROSEMIDE 40 MG TABLET PO SCH (08:33)
[2020-02-26] MEDS: FERROUS SULFATE 325 MG TABLET. PO SCH (08:33)
[2020-02-26] MEDS: ATENOLOL 50 MG TABLET PO SCH (08:33)
[2020-02-26] MEDS: hydrALAZINE 25 MG TABLET PO SCH ×3 (08:34→20:27)
[2020-02-26] MEDS: POLYETHYLENE GLYCOL 3350 17 GM PACKET. PO SCH (08:34)
[2020-02-26] MEDS: DOCUSATE SODIUM 100 MG CAPSULE PO SCH (08:34)
[2020-02-26 14:09] VITALS: BP 126/60
--- NOTE | 2020-02-26 17:15 | NUR ---
Patient has been calm, compliant, and pleasant throughout this shift. She was unable to state day or date, and stated that we were in [place] [facility] when asked orientation questions. Patient generally withdrawn to room, but would come out of her room occasionally to walk in the halls. She also sat outside on the patio during the afternoon for about 45 minutes. Will continue to monitor and report to oncoming shift.
[2020-02-26] MEDS: PANTOPRAZOLE 40 MG TABLET. PO SCH (20:26)
[2020-02-26] MEDS: MONTELUKAST 10 MG TABLET. PO SCH (20:26)
[2020-02-26] MEDS: risperiDONE 1 MG TABLET. PO SCH (20:26)
[2020-02-26] MEDS: risperiDONE 0.5 MG TABLET. PO SCH (20:26)
[2020-02-26] MEDS: DONEPEZIL HCL 10 MG TABLET PO SCH (20:27)
[2020-02-26] MEDS: DIVALPROEX ER 500 MG TAB.ER.24H PO SCH (20:27)
[2020-02-26] MEDS: traZODone 50 MG TABLET. PO SCH (21:29)
--- NOTE | 2020-02-26 21:49 | PDOC ---
Exam Note: Avni Note: Please also refer to the separate dictated note~for this date of service dictated separately.~Patient seen individually. Discussed the patient with Nursing staff reviewed the chart.~Reviewed interim history and current functioning. Reviewed vital signs,~Labs/ Radiology~and current medications noted below. Continue current treatment with the changes noted in the dictated addendum note Assessment: Vital Signs/I&O: Vital Signs Date Time Temp Pulse Resp B/P (MAP) Pulse Ox O2 Delivery O2 Flow Rate FiO2 02/26/20 20:27 56 126/60 02/26/20 20:17 98.4 99 02/26/20 14:09 16 Room Air I & O 02/25/20 02/25/20 02/26/20 15:00 23:00 07:00 Intake Total 820 ml 600 ml Balance 820 ml 600 ml Labs: Laboratory Tests Test 02/26/20 07:26 Glucose (Fingerstick) 86 mg/dL (70-99) Current Medications: I have reviewed the current psychotropics carefully including drug interactions. Risk benefit ratio favors no change other than as noted in my dictated progress note. Diagnosis: Problems: (1) Impulse control disorder, unspecified (2) Anxiety disorder, unspecified (3) Bipolar disorder, curr episode mixed, severe, with psychotic features JABARI ARBOLEDA MD Feb 26, 2020 21:49
--- NOTE | 2020-02-27 01:26 | NUR ---
Nursing Note The patient was calm and compliant with her medication and assessment. The patient took her medication whole and was pleasant during interactions with this nurse. The patient took her medication whole with apple sauce. The patient is currently sleeping in her room.
[2020-02-27] MEDS: LEVOTHYROXINE 125 MCG TABLET PO SCH (05:31)
[2020-02-27 05:54] VITALS: BP 129/76
[2020-02-27] MEDS: OXYBUTYNIN CHLORIDE 5 MG TABLET PO SCH ×2 (08:04→20:32)
[2020-02-27] MEDS: POLYVINYL ALCOHOL 1.4% OPHTH SOLUTION 15ML BOTTLE. OU SCH ×2 (08:04→20:24)
[2020-02-27] MEDS: DOCUSATE SODIUM 100 MG CAPSULE PO SCH (08:04)
[2020-02-27] MEDS: ATENOLOL 50 MG TABLET PO SCH (08:05)
[2020-02-27] MEDS: amLODIPine BESYLATE 10 MG TABLET PO SCH (08:05)
[2020-02-27] MEDS: FERROUS SULFATE 325 MG TABLET. PO SCH (08:05)
[2020-02-27] MEDS: CALCIUM CARB/VIT D3 500/200 TABLET PO SCH (08:05)
[2020-02-27] MEDS: MULTIVITAMIN with MINERAL TABLET. PO SCH (08:05)
[2020-02-27] MEDS: FUROSEMIDE 40 MG TABLET PO SCH (08:05)
[2020-02-27] MEDS: MAGNESIUM CHLORIDE ER 64 MG TABLET.ER PO SCH (08:05)
[2020-02-27] MEDS: LACTOBACILLUS RHAMNOSUS GG 1 CAPSULE. PO SCH ×2 (08:05→20:34)
[2020-02-27] MEDS: hydrALAZINE 25 MG TABLET PO SCH ×3 (08:06→20:34)
[2020-02-27] MEDS: buPROPion XL 300 MG TAB.ER.24H. PO SCH (08:06)
[2020-02-27] MEDS: ALBUTEROL SULFATE 8GM INHALER. INH SCH ×2 (08:06→20:24)
[2020-02-27] MEDS: metFORMIN 500 MG TABLET PO SCH (08:06)
[2020-02-27] MEDS: POLYETHYLENE GLYCOL 3350 17 GM PACKET. PO SCH (08:06)
[2020-02-27] MEDS: FLUTICASONE 50MCG/NASAL SPRAY 16GM BOTTLE. NS SCH (08:07)
--- NOTE | 2020-02-27 09:53 | NUR ---
Patient was sitting on the edge of her bed and had finished her breakfast when nurse approached her for morning assessment/medications. Patient oriented x3 she does not know why she is here. When nurse explained reason for admission patient stated she "might" remember that happening. Patient spilled her pills on the bed while attempting to pour them onto her applesauce. Compliant with oral meds taken floated in applesauce, also compliant with eye drops, intranasal and inhaled medications. Patient does not ask any questions about her medications. Patient has been clam this shift, withdrawn to room and cooperative.
--- NOTE | 2020-02-27 14:41 | NUR ---
SHAKA returned call to [facility] and set up transport for Wednesday morning. SHAKA explained that the med list can be finalized night and faxed over prior to transport which they would prefer to have happen. SHAKA will notify staff of this request. SHAKA will send notes over on for review as well as follow up with [facility] to confirm Wednesday mushroom picker time.
[2020-02-27 15:00] VITALS: BP 131/82
--- NOTE | 2020-02-27 17:14 | NUR ---
Patient has been coughing this day. She has a dry cough. She denies throat pain when asked, vital signs are normal. Will pass on in shift report.
[2020-02-27] MEDS: DONEPEZIL HCL 10 MG TABLET PO SCH (20:25)
[2020-02-27] MEDS: MONTELUKAST 10 MG TABLET. PO SCH (20:25)
[2020-02-27] MEDS: DIVALPROEX ER 500 MG TAB.ER.24H PO SCH (20:32)
[2020-02-27] MEDS: traZODone 50 MG TABLET. PO SCH (20:32)
[2020-02-27] MEDS: risperiDONE 1 MG TABLET. PO SCH (20:34)
[2020-02-27] MEDS: PANTOPRAZOLE 40 MG TABLET. PO SCH (20:34)
[2020-02-27] MEDS: risperiDONE 0.5 MG TABLET. PO SCH (20:35)
--- NOTE | 2020-02-27 21:53 | PDOC ---
Exam Note: Avni Note: Please also refer to the separate dictated note~for this date of service dictated separately.~Patient seen individually. Discussed the patient with Nursing staff reviewed the chart.~Reviewed interim history and current functioning. Reviewed vital signs,~Labs/ Radiology~and current medications noted below. Continue current treatment with the changes noted in the dictated addendum note Assessment: Vital Signs/I&O: Vital Signs Date Time Temp Pulse Resp B/P (MAP) Pulse Ox O2 Delivery O2 Flow Rate FiO2 02/27/20 20:34 60 131/82 02/27/20 20:18 97.5 98 02/27/20 15:00 18 Room Air I & O 02/26/20 02/26/20 02/27/20 14:59 22:59 06:59 Intake Total 861 ml 1076 ml 120 ml Balance 861 ml 1076 ml 120 ml Labs: Laboratory Tests Test 02/27/20 07:07 Glucose (Fingerstick) 101 mg/dL (70-99) H Current Medications: I have reviewed the current psychotropics carefully including drug interactions. Risk benefit ratio favors no change other than as noted in my dictated progress note. Diagnosis: Problems: (1) Impulse control disorder, unspecified (2) Anxiety disorder, unspecified (3) Bipolar disorder, curr episode mixed, severe, with psychotic features JABARI ARBOLEDA MD Feb 27, 2020 21:53
--- NOTE | 2020-02-27 22:58 | NUR ---
Pt located in her room this evening. Pt has been coloring and listening to music on the [place]. Compliant with whole medications floated in yogurt. No delusions noted this evening.
[2020-02-28] MEDS: LEVOTHYROXINE 125 MCG TABLET PO SCH (06:04)
[2020-02-28 06:23] VITALS: BP 140/73
[2020-02-28 07:03] LABS: BASO # 0.1 x10^3/uL (0.0-0.2); BASO % 1 % (0-3); EOS # 0.2 x10^3/uL (0.0-0.7); EOS % 4 % (0-3); HEMATOCRIT 34.2 % (36.0-47.0); HEMOGLOBIN 11.1 g/dL (12.0-15.5); LYMPH # 1.7 x10^3/uL (1.0-4.8); LYMPH % 26 % (24-48); MEAN CORPUSCULAR HEMOGLOBIN 31 pg (25-35); MEAN CORPUSCULAR HGB CONC 33 g/dL (31-37); MEAN CORPUSCULAR VOLUME 94 fL (79-100); MONO % 15 % (0-9); NEUT # 3.6 x10^3uL (1.8-7.7); NEUT % 54 % (31-73); PLATELET COUNT 253 x10^3/uL (140-400); RED BLOOD COUNT 3.65 x10^6/uL (3.50-5.40); RED CELL DISTRIBUTION WIDTH 16.1 % (11.5-14.5); WHITE BLOOD COUNT 6.7 x10^3/uL (4.0-11.0)
[2020-02-28 07:05] LABS: ALBUMIN 2.9 g/dL (3.4-5.0); ALBUMIN/GLOBULIN RATIO 0.8 (1.0-1.7); CALCIUM 9.1 mg/dL (8.5-10.1); CREATININE 1.7 mg/dL (0.6-1.0); GFR 29.7; POTASSIUM 4.5 mmol/L (3.5-5.1); TOTAL BILIRUBIN 0.3 mg/dL (0.2-1.0); TOTAL PROTEIN 6.5 g/dL (6.4-8.2)
[2020-02-28] MEDS: ALBUTEROL SULFATE 8GM INHALER. INH SCH ×2 (07:27→20:14)
--- NOTE | 2020-02-28 07:27 | NUR ---
Patient has dry cough. She denies throat pain and vital signs are WNL. Throat does not appear red, but uvula does. Lung sounds clear but diminished, as is usual for this patient. Scheduled inhaler given at this time and patient was also provided ice water and grape juice. Will continue to monitor.
[2020-02-28] MEDS: POLYETHYLENE GLYCOL 3350 17 GM PACKET. PO SCH (08:54)
[2020-02-28] MEDS: POLYVINYL ALCOHOL 1.4% OPHTH SOLUTION 15ML BOTTLE. OU SCH ×2 (08:54→20:14)
[2020-02-28] MEDS: amLODIPine BESYLATE 10 MG TABLET PO SCH (08:59)
[2020-02-28] MEDS: FLUTICASONE 50MCG/NASAL SPRAY 16GM BOTTLE. NS SCH (08:59)
[2020-02-28] MEDS: ATENOLOL 50 MG TABLET PO SCH (08:59)
[2020-02-28] MEDS: CALCIUM CARB/VIT D3 500/200 TABLET PO SCH (09:00)
[2020-02-28] MEDS: MAGNESIUM CHLORIDE ER 64 MG TABLET.ER PO SCH (09:00)
[2020-02-28] MEDS: metFORMIN 500 MG TABLET PO SCH (09:00)
[2020-02-28] MEDS: FERROUS SULFATE 325 MG TABLET. PO SCH (09:00)
[2020-02-28] MEDS: FUROSEMIDE 40 MG TABLET PO SCH (09:01)
[2020-02-28] MEDS: buPROPion XL 300 MG TAB.ER.24H. PO SCH (09:01)
[2020-02-28] MEDS: hydrALAZINE 25 MG TABLET PO SCH ×3 (09:01→20:15)
[2020-02-28] MEDS: LACTOBACILLUS RHAMNOSUS GG 1 CAPSULE. PO SCH ×2 (09:01→20:11)
[2020-02-28] MEDS: OXYBUTYNIN CHLORIDE 5 MG TABLET PO SCH ×2 (09:01→20:11)
[2020-02-28] MEDS: DOCUSATE SODIUM 100 MG CAPSULE PO SCH (09:02)
[2020-02-28] MEDS: MULTIVITAMIN with MINERAL TABLET. PO SCH (09:02)
--- NOTE | 2020-02-28 11:08 | NUR ---
Patient is calm and cooperative. This morning she has been coloring and listening to country music on the [place]. Patient compliant with medications given with apple sauce, she can administer her own inhaler and fluticasone. She denies pain when asked. Left side of her face appears slightly swollen, she said it "doensn't bother her". Patient remains in her room and wears her face mask when she comes into the hallway. (per curent Covid 19 protocol). Patient has a good appetite and eats 100% of most meals. Patient had a shower and [employer] put knee high compression hose on patient after shower r/t patient BLLE. Patient takes a size "J" in patti hose.
[2020-02-28 14:22] VITALS: BP 121/74
[2020-02-28] MEDS: MONTELUKAST 10 MG TABLET. PO SCH (20:10)
[2020-02-28] MEDS: DONEPEZIL HCL 10 MG TABLET PO SCH (20:11)
[2020-02-28] MEDS: DIVALPROEX ER 500 MG TAB.ER.24H PO SCH (20:11)
[2020-02-28] MEDS: PANTOPRAZOLE 40 MG TABLET. PO SCH (20:11)
[2020-02-28] MEDS: risperiDONE 1 MG TABLET. PO SCH (20:12)
[2020-02-28] MEDS: risperiDONE 0.5 MG TABLET. PO SCH (20:12)
[2020-02-28] MEDS: traZODone 50 MG TABLET. PO SCH (20:12)
--- NOTE | 2020-02-28 21:24 | NUR ---
Nursing Note Pt in room, takes meds in applesauce. Legs are 3+ pitting edema bilat. States that her legs are sore at times. Pleasant calm and cooperative. No behaviors this pm less demanding.
--- NOTE | 2020-02-28 22:27 | PDOC ---
Exam Note: Avni Note: This note is a late entry for 02/26/2020 covers elements not covered in my initial note. Subjective: The patient was reviewed on telehealth rounds due to COVID-19 restrictions on the unit in the evening of 02/26/2020 with Dinh BOND. Discussed with nursing staff, reviewed the chart. She slept 5-1/2 hours previous night. Overall the patient is doing reasonably well. She does come out of the dayroom and [facility] without much encouragement. Review of Systems: Ambulation impaired. No CV, , pulmonary, eye, ENT system symptoms on review. She is not talking about getting and I pointedly questioned her on this. Mental Status Exam: Oriented reasonably. She is not talking about getting and I pointedly questioned her on this. Delusions seemed to have subsided. Abstraction fair. Computation impaired. Language function intact. Mood and affect remains anxious at times. No suicidal or homicidal ideation. Laboratory Data: Reviewed. Impression: Bipolar disorder manic with psychotic features. Anxiety disorder unspecified. Rest unchanged. Plan: No change from initial note. Assessment: Vital Signs/I&O: Vital Signs Date Time Temp Pulse Resp B/P (MAP) Pulse Ox O2 Delivery O2 Flow Rate FiO2 02/28/20 20:15 58 121/74 02/28/20 19:41 98.2 97 02/28/20 14:22 18 Room Air I & O 02/27/20 02/27/20 02/28/20 15:00 23:00 07:00 Intake Total 700 ml 770 ml Balance 700 ml 770 ml Labs: Laboratory Tests Test 02/28/20 06:35 02/28/20 07:50 White Blood Count 6.7 x10^3/uL (4.0-11.0) Red Blood Count 3.65 x10^6/uL (3.50-5.40) Hemoglobin 11.1 g/dL (12.0-15.5) L Hematocrit 34.2 % (36.0-47.0) L Mean Corpuscular Volume 94 fL (79-100) Mean Corpuscular Hemoglobin 31 pg (25-35) Mean Corpuscular Hemoglobin Concent 33 g/dL (31-37) Red Cell Distribution Width 16.1 % (11.5-14.5) H Platelet Count 253 x10^3/uL (140-400) Neutrophils (%) (Auto) 54 % (31-73) Lymphocytes (%) (Auto) 26 % (24-48) Monocytes (%) (Auto) 15 % (0-9) H Eosinophils (%) (Auto) 4 % (0-3) H Basophils (%) (Auto) 1 % (0-3) Neutrophils # (Auto) 3.6 x10^3uL (1.8-7.7) Lymphocytes # (Auto) 1.7 x10^3/uL (1.0-4.8) Monocytes # (Auto) 1.0 x10^3/uL (0.0-1.1) Eosinophils # (Auto) 0.2 x10^3/uL (0.0-0.7) Basophils # (Auto) 0.1 x10^3/uL (0.0-0.2) Sodium Level 142 mmol/L (136-145) Potassium Level 4.5 mmol/L (3.5-5.1) Chloride Level 105 mmol/L (98-107) Carbon Dioxide Level 28 mmol/L (21-32) Anion Gap 9 (6-14) Blood Urea Nitrogen 37 mg/dL (7-20) H Creatinine 1.7 mg/dL (0.6-1.0) H Estimated GFR (Cockcroft-Gault) 29.7 BUN/Creatinine Ratio 22 (6-20) H Glucose Level 99 mg/dL (70-99) Calcium Level 9.1 mg/dL (8.5-10.1) Total Bilirubin 0.3 mg/dL (0.2-1.0) Aspartate Amino Transferase (AST) 7 U/L (15-37) L Alanine Aminotransferase (ALT) 16 U/L (14-59) Alkaline Phosphatase 67 U/L (46-116) NY-Asa-T-Type Natriuretic Peptide 335 pg/mL (0-124) H Total Protein 6.5 g/dL (6.4-8.2) Albumin 2.9 g/dL (3.4-5.0) L Albumin/Globulin Ratio 0.8 (1.0-1.7) L Glucose (Fingerstick) 110 mg/dL (70-99) H Current Medications: I have reviewed the current psychotropics carefully including drug interactions. Risk benefit ratio favors no change other than as noted in my dictated progress note. Diagnosis: Problems: (1) Impulse control disorder, unspecified (2) Anxiety disorder, unspecified (3) Bipolar disorder, curr episode mixed, severe, with psychotic features JABARI ARBOLEDA MD Feb 28, 2020 22:27
--- NOTE | 2020-02-28 22:29 | PDOC ---
Exam Note: Avni Note: This note is a late entry for 02/27/2020 covers elements not covered in my initial note. Subjective: The patient was reviewed on telehealth rounds due to COVID-19 restrictions on the unit in the evening of 02/27/2020 with Ana Laura BOND. Discussed with nursing staff, reviewed the chart. She slept 6-1/4 hours pre vious night. She has some urinary urgency, seems to urinate on the floor on the way to the bathroom and then feels ashamed about this. Nursing report indicate she does not seemed to have any other symptoms suggestive of UTI. We will defer to Dr. Caraballo/Dr. Livingston to address this. Review of Systems: Ambulation impaired with walker. No CV, , pulmonary, eye, ENT system symptoms on review. Mental Status Exam: Oriented reasonably. The patient was seen on telehealth rounds. She has some latency of speech otherwise coherent. Abstraction fair. Computation somewhat impaired. Mood and affect improved. Psychotic symptoms seemed to have subsided. Laboratory Data: Reviewed. Impression: Bipolar disorder manic with psychotic features. Anxiety disorder unspecified. Rest unchanged. Plan: No change from initial note. Assessment: Vital Signs/I&O: Vital Signs Date Time Temp Pulse Resp B/P (MAP) Pulse Ox O2 Delivery O2 Flow Rate FiO2 02/28/20 20:15 58 121/74 02/28/20 19:41 98.2 97 02/28/20 14:22 18 Room Air I & O 02/27/20 02/27/20 02/28/20 14:59 22:59 06:59 Intake Total 700 ml 770 ml Balance 700 ml 770 ml Labs: Laboratory Tests Test 02/28/20 06:35 02/28/20 07:50 White Blood Count 6.7 x10^3/uL (4.0-11.0) Red Blood Count 3.65 x10^6/uL (3.50-5.40) Hemoglobin 11.1 g/dL (12.0-15.5) L Hematocrit 34.2 % (36.0-47.0) L Mean Corpuscular Volume 94 fL (79-100) Mean Corpuscular Hemoglobin 31 pg (25-35) Mean Corpuscular Hemoglobin Concent 33 g/dL (31-37) Red Cell Distribution Width 16.1 % (11.5-14.5) H Platelet Count 253 x10^3/uL (140-400) Neutrophils (%) (Auto) 54 % (31-73) Lymphocytes (%) (Auto) 26 % (24-48) Monocytes (%) (Auto) 15 % (0-9) H Eosinophils (%) (Auto) 4 % (0-3) H Basophils (%) (Auto) 1 % (0-3) Neutrophils # (Auto) 3.6 x10^3uL (1.8-7.7) Lymphocytes # (Auto) 1.7 x10^3/uL (1.0-4.8) Monocytes # (Auto) 1.0 x10^3/uL (0.0-1.1) Eosinophils # (Auto) 0.2 x10^3/uL (0.0-0.7) Basophils # (Auto) 0.1 x10^3/uL (0.0-0.2) Sodium Level 142 mmol/L (136-145) Potassium Level 4.5 mmol/L (3.5-5.1) Chloride Level 105 mmol/L (98-107) Carbon Dioxide Level 28 mmol/L (21-32) Anion Gap 9 (6-14) Blood Urea Nitrogen 37 mg/dL (7-20) H Creatinine 1.7 mg/dL (0.6-1.0) H Estimated GFR (Cockcroft-Gault) 29.7 BUN/Creatinine Ratio 22 (6-20) H Glucose Level 99 mg/dL (70-99) Calcium Level 9.1 mg/dL (8.5-10.1) Total Bilirubin 0.3 mg/dL (0.2-1.0) Aspartate Amino Transferase (AST) 7 U/L (15-37) L Alanine Aminotransferase (ALT) 16 U/L (14-59) Alkaline Phosphatase 67 U/L (46-116) NY-Kwp-Y-Type Natriuretic Peptide 335 pg/mL (0-124) H Total Protein 6.5 g/dL (6.4-8.2) Albumin 2.9 g/dL (3.4-5.0) L Albumin/Globulin Ratio 0.8 (1.0-1.7) L Glucose (Fingerstick) 110 mg/dL (70-99) H Current Medications: I have reviewed the current psychotropics carefully including drug interactions. Risk benefit ratio favors no change other than as noted in my dictated progress note. Diagnosis: Problems: (1) Impulse control disorder, unspecified (2) Anxiety disorder, unspecified (3) Bipolar disorder, curr episode mixed, severe, with psychotic features JABARI ARBOLEDA MD Feb 28, 2020 22:29
--- NOTE | 2020-02-28 22:32 | PDOC ---
Exam Note: Avni Note: Subjective: The patient was reviewed on telehealth rounds due to COVID-19 restrictions on the unit in the evening of 02/28/2020 with Ana Laura BOND. Discussed with nursing staff, reviewed the chart. She slept 6-1/2 hours previous night. She has been coming out for groups. No clear psychotic symptoms noted. She has not been urinating on the floor. Review of Systems: Ambulation impaired with walker. No CV, , pulmonary, eye, ENT system symptoms on review. Mental Status Exam: Oriented to herself and situation. Speech has some latency, coherent. Abstraction fair. Computation impaired. Language function intact. Attention span is short. Mood and affect withdrawn. Laboratory Data: Reviewed. Impression: Bipolar disorder manic with psychotic features. Anxiety disorder unspecified. Rest unchanged. Plan: No change from initial note. Assessment: Vital Signs/I&O: Vital Signs Date Time Temp Pulse Resp B/P (MAP) Pulse Ox O2 Delivery O2 Flow Rate FiO2 02/28/20 20:15 58 121/74 02/28/20 19:41 98.2 97 02/28/20 14:22 18 Room Air I & O 02/27/20 02/27/20 02/28/20 15:00 23:00 07:00 Intake Total 700 ml 770 ml Balance 700 ml 770 ml Labs: Laboratory Tests Test 02/28/20 06:35 02/28/20 07:50 White Blood Count 6.7 x10^3/uL (4.0-11.0) Red Blood Count 3.65 x10^6/uL (3.50-5.40) Hemoglobin 11.1 g/dL (12.0-15.5) L Hematocrit 34.2 % (36.0-47.0) L Mean Corpuscular Volume 94 fL (79-100) Mean Corpuscular Hemoglobin 31 pg (25-35) Mean Corpuscular Hemoglobin Concent 33 g/dL (31-37) Red Cell Distribution Width 16.1 % (11.5-14.5) H Platelet Count 253 x10^3/uL (140-400) Neutrophils (%) (Auto) 54 % (31-73) Lymphocytes (%) (Auto) 26 % (24-48) Monocytes (%) (Auto) 15 % (0-9) H Eosinophils (%) (Auto) 4 % (0-3) H Basophils (%) (Auto) 1 % (0-3) Neutrophils # (Auto) 3.6 x10^3uL (1.8-7.7) Lymphocytes # (Auto) 1.7 x10^3/uL (1.0-4.8) Monocytes # (Auto) 1.0 x10^3/uL (0.0-1.1) Eosinophils # (Auto) 0.2 x10^3/uL (0.0-0.7) Basophils # (Auto) 0.1 x10^3/uL (0.0-0.2) Sodium Level 142 mmol/L (136-145) Potassium Level 4.5 mmol/L (3.5-5.1) Chloride Level 105 mmol/L (98-107) Carbon Dioxide Level 28 mmol/L (21-32) Anion Gap 9 (6-14) Blood Urea Nitrogen 37 mg/dL (7-20) H Creatinine 1.7 mg/dL (0.6-1.0) H Estimated GFR (Cockcroft-Gault) 29.7 BUN/Creatinine Ratio 22 (6-20) H Glucose Level 99 mg/dL (70-99) Calcium Level 9.1 mg/dL (8.5-10.1) Total Bilirubin 0.3 mg/dL (0.2-1.0) Aspartate Amino Transferase (AST) 7 U/L (15-37) L Alanine Aminotransferase (ALT) 16 U/L (14-59) Alkaline Phosphatase 67 U/L (46-116) TR-Ijo-O-Type Natriuretic Peptide 335 pg/mL (0-124) H Total Protein 6.5 g/dL (6.4-8.2) Albumin 2.9 g/dL (3.4-5.0) L Albumin/Globulin Ratio 0.8 (1.0-1.7) L Glucose (Fingerstick) 110 mg/dL (70-99) H Current Medications: I have reviewed the current psychotropics carefully including drug interactions. Risk benefit ratio favors no change other than as noted in my dictated progress note. Diagnosis: Problems: (1) Impulse control disorder, unspecified (2) Anxiety disorder, unspecified (3) Bipolar disorder, curr episode mixed, severe, with psychotic features JABARI ARBOLEDA MD Feb 28, 2020 22:32
[2020-02-29 06:18] VITALS: BP 155/86
--- NOTE | 2020-02-29 09:42 | RAD ---
EXAM: Duplex ultrasound lower extremity venous bilateral CLINICAL HISTORY: Reason: swollen bilateraL LE,SHORTNESS OF BREATH COMPARISON: None available. TECHNIQUE: Ultrasound evaluation of the lateral lower extremities was performed from the groin to the Calf with deras scale, spectral and color doppler evaluation. FINDINGS: The bilateral common femoral vein, and femoral vein, including the saphenous-femoral junction are normal in appearance. Color and spectral Doppler evaluation demonstrates normal spontaneous flow, augmentation and phasicity. The bilateral popliteal veins and left calf veins are patent. Right calf veins are not well visualized. There is subcutaneous edema in the calves. There is a complex fluid collection in the left popliteal fossa measuring 5 x 5.3 x 2.2 cm. IMPRESSION: 1. No evidence of deep venous spondylosis in the lower extremities. 2. 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 Electronically signed by: Rebecca Bell MD (02/29/2020 9:39 AM) [id number]
[2020-02-29] MEDS: FLUTICASONE 50MCG/NASAL SPRAY 16GM BOTTLE. NS SCH (10:10)
[2020-02-29] MEDS: POLYETHYLENE GLYCOL 3350 17 GM PACKET. PO SCH (10:10)
[2020-02-29] MEDS: ALBUTEROL SULFATE 8GM INHALER. INH SCH ×2 (10:10→19:50)
[2020-02-29] MEDS: FERROUS SULFATE 325 MG TABLET. PO SCH (10:11)
[2020-02-29] MEDS: LEVOTHYROXINE 125 MCG TABLET PO SCH (10:11)
[2020-02-29] MEDS: POLYVINYL ALCOHOL 1.4% OPHTH SOLUTION 15ML BOTTLE. OU SCH ×2 (10:11→19:51)
[2020-02-29] MEDS: DOCUSATE SODIUM 100 MG CAPSULE PO SCH (10:11)
[2020-02-29] MEDS: metFORMIN 500 MG TABLET PO SCH (10:11)
[2020-02-29] MEDS: FUROSEMIDE 40 MG TABLET PO SCH (10:12)
[2020-02-29] MEDS: amLODIPine BESYLATE 10 MG TABLET PO SCH (10:12)
[2020-02-29] MEDS: ATENOLOL 50 MG TABLET PO SCH (10:12)
[2020-02-29] MEDS: MAGNESIUM CHLORIDE ER 64 MG TABLET.ER PO SCH (10:12)
[2020-02-29] MEDS: OXYBUTYNIN CHLORIDE 5 MG TABLET PO SCH ×2 (10:13→19:51)
[2020-02-29] MEDS: buPROPion XL 300 MG TAB.ER.24H. PO SCH (10:13)
[2020-02-29] MEDS: MULTIVITAMIN with MINERAL TABLET. PO SCH (10:13)
[2020-02-29] MEDS: hydrALAZINE 25 MG TABLET PO SCH ×3 (10:13→19:53)
[2020-02-29] MEDS: CALCIUM CARB/VIT D3 500/200 TABLET PO SCH (10:13)
[2020-02-29] MEDS: LACTOBACILLUS RHAMNOSUS GG 1 CAPSULE. PO SCH ×2 (10:13→19:52)
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
--- NOTE | 2020-02-29 12:08 | RAD ---
CHEST PA LATERAL History: Reason: COUGH, SHORTNESS OF BRAETH / Spl. Instructions: / History: Comparison: None. Findings: Frontal and lateral views of the chest were obtained. The cardiomediastinal silhouette is normal. Pulmonary vasculature is normal. No infiltrate. Left lateral basilar linear scarring is suggested anteriorly. Calcified granulomas are present. No pleural effusion or pneumothorax is seen. There is no acute bone abnormality. IMPRESSION: No acute cardiopulmonary process. Electronically signed by: Addison Birch MD (02/29/2020 12:05 PM) [id number]
--- NOTE | 2020-02-29 12:09 | NUR ---
Patient went to radiology this morning for a BLLE ultra sound and a chest Xray. Staff took patient to radiology in a wheel chair. When patient arrived back on unit, patient told BELL TIER that she would "just stay in that wheelchair". BELL TIER told patient she needed to get up and sit in the chair, and use her walker for ambulation. When nurse was in patients room for med pass and assessment, patient asked nurse 3 different times if she could "use the wheelchair because it's easier for her". Nurse explained that patient could lose the ability to ambulate with her walker if she stops using it and sits in a wheelchair waiting for people to push her around. Patient then asked if she could sit in the wheelchair on the patio for group. Nurse again provided education to patient. Patient med compliant, she takes medications with applesauce and Miralax in apple juice. She is cooperative and calm. Patient will ring the call light from the bathroom when she requires a clean brief but is able to toilet herself independently. Patient asking for "broth" and refill of tomato soup at lunch. Patient asking [employer] employee after [facility] staff told her she could not have more soup. Education provided regarding sodium content of soup and that she is on a low sodium diet. Patient is aware that she is on a low sodium diet, as education was provided at breakfast this morning and yesterday afternoon when she was asking for "broth". Patient is oriented x4 and is cognitively intact. Patient offered a fruit cup, which she declined.
--- NOTE | 2020-02-29 14:21 | NUR ---
Patient moved to room # 214 as the ac/heater blower coil is being cleaned and the room will need to be "deep cleaned" before he could return. Addendum: 02/29/20 at 1859 by ANGELES DEVINE RN wrong patient
--- NOTE | 2020-02-29 16:00 | NUR ---
Patient has made multiple requests for "broth". Patient advised again that she needs to eat a low sodium diet to help with the swelling in her lower legs. Broth has too much sodium.
[2020-02-29 16:15] VITALS: BP 135/80
--- NOTE | 2020-02-29 18:52 | NUR ---
Spoke with Dr Caraballo by phone, patient scheduled to discharge tomorrow. Received order to discontinue Percocet as patient has not utilized since 02/09. Written script destroyed. Patient needs to follow up with PCP upon discharge for possible adjustment of diuretic medication dose. Patients US showed no blood clots. Annotated on discharge record per Dr Caraballo telephone order.
--- NOTE | 2020-02-29 19:00 | NUR ---
[facility] Social Work Discharge Planning Form Patient Name JOSELINE MENDOZA Admit Date: 01/26/20 DISCHARGE PLAN Discharge Destination: Pt to return to [facility] Assessment: N/A Level II Assessment: N/A Transportation: Facility to pick pt up at 1100 Special Instructions/Notes: Please fax all discharge orders and the medication list to the fax number listed below. DISCHARGE TO FACILITY Facility: [facility] Address: [address] [place] [address] Contact Name: LARS Aguirre: Contact Name: Please ask for nurse caring for pt upon admission. PCP: Dr. Yuen
[2020-02-29] MEDS: risperiDONE 1 MG TABLET. PO SCH (19:51)
[2020-02-29] MEDS: DONEPEZIL HCL 10 MG TABLET PO SCH (19:51)
[2020-02-29] MEDS: traZODone 50 MG TABLET. PO SCH (19:52)
[2020-02-29] MEDS: DIVALPROEX ER 500 MG TAB.ER.24H PO SCH (19:52)
[2020-02-29] MEDS: PANTOPRAZOLE 40 MG TABLET. PO SCH (19:52)
[2020-02-29] MEDS: risperiDONE 0.5 MG TABLET. PO SCH (19:53)
[2020-02-29] MEDS: MONTELUKAST 10 MG TABLET. PO SCH (19:55)
--- NOTE | 2020-02-29 20:43 | NUR ---
Nursing Note Pt asks repeatedly for broth or a bowl of vegetable soup. Instructed her that she has increased edema to her LE, and really needs to avoid sodium at this point. Took PO meds, and as if she hadn't just asked me, asked for broth or vegetable soup again. Reiterated my response from previous. Seems to not retain information, or may be demanding not sure which. Told her to eat the yogurt she was given for snack.
--- NOTE | 2020-02-29 21:46 | PDOC ---
Exam Note: Avni Note: Please also refer to the separate dictated note~for this date of service dictated separately.~Patient seen individually. Discussed the patient with Nursing staff reviewed the chart.~Reviewed interim history and current functioning. Reviewed vital signs,~Labs/ Radiology~and current medications noted below. Continue current treatment with the changes noted in the dictated addendum note Assessment: Vital Signs/I&O: Vital Signs Date Time Temp Pulse Resp B/P (MAP) Pulse Ox O2 Delivery O2 Flow Rate FiO2 02/29/20 19:53 59 135/80 02/29/20 16:15 98.0 16 96 02/28/20 14:22 Room Air I & O 02/28/20 02/28/20 02/29/20 15:00 23:00 07:00 Intake Total 761 ml 720 ml Balance 761 ml 720 ml Current Medications: I have reviewed the current psychotropics carefully including drug interactions. Risk benefit ratio favors no change other than as noted in my dictated progress note. Diagnosis: Problems: (1) Impulse control disorder, unspecified (2) Anxiety disorder, unspecified (3) Bipolar disorder, curr episode mixed, severe, with psychotic features JABARI ARBOLEDA MD Feb 29, 2020 21:46
--- NOTE | 2020-02-29 23:18 | PDOC ---
Exam Note: Avni Note: Subjective: The patient was reviewed on telehealth rounds for treatment team meeting in the morning of 02/29/2020 with Melvi (social security specialist) Ana Laura BOND and myself due to COVID-19 restrictions on the unit. The patient was also seen on telehealth rounds in the evening of 02/29/2020. Discussed with nursing nicole martinez, reviewed the chart. Overall the patient is sleeping reasonably well. She has been worked up for possible pneumonia or DVT and workup per Dr. Caraballo has been negative for this with negative chest x-ray and an ultrasound. Otherwise she has been fairly cooperative. Appetite is poor. Review of Systems: Ambulation impaired with walker but she is wanting to ambulate in wheelchair. No CV, , pulmonary, eye system symptoms on review. Mental Status Exam: Reasonably oriented. Speech is coherent. Abstraction fair. Computation impaired. Language function intact. Mood and affect withdrawn but improved. No suicidal or homicidal ideation. Laboratory Data: Reviewed. Impression: Bipolar disorder manic with psychotic features. Anxiety disorder unspecified. Rest unchanged. Plan: No change from initial note with possible transition to [facility] on [facility]. Assessment: Vital Signs/I&O: Vital Signs Date Time Temp Pulse Resp B/P (MAP) Pulse Ox O2 Delivery O2 Flow Rate FiO2 02/29/20 19:53 59 135/80 02/29/20 16:15 98.0 16 96 02/28/20 14:22 Room Air I & O 02/28/20 02/28/20 02/29/20 15:00 23:00 07:00 Intake Total 761 ml 720 ml Balance 761 ml 720 ml Current Medications: I have reviewed the current psychotropics carefully including drug interactions. Risk benefit ratio favors no change other than as noted in my dictated progress note. Diagnosis: Problems: (1) Impulse control disorder, unspecified (2) Anxiety disorder, unspecified (3) Bipolar disorder, curr episode mixed, severe, with psychotic features JABARI ARBOLEDA MD Feb 29, 2020 23:17
[2020-03-01 06:33] VITALS: BP 157/79
[2020-03-01] MEDS: FLUTICASONE 50MCG/NASAL SPRAY 16GM BOTTLE. NS SCH (07:44)
[2020-03-01] MEDS: POLYVINYL ALCOHOL 1.4% OPHTH SOLUTION 15ML BOTTLE. OU SCH (07:44)
[2020-03-01] MEDS: ALBUTEROL SULFATE 8GM INHALER. INH SCH (07:45)
[2020-03-01] MEDS: POLYETHYLENE GLYCOL 3350 17 GM PACKET. PO SCH (07:45)
[2020-03-01] MEDS: amLODIPine BESYLATE 10 MG TABLET PO SCH (07:46)
[2020-03-01] MEDS: OXYBUTYNIN CHLORIDE 5 MG TABLET PO SCH (07:46)
[2020-03-01] MEDS: DOCUSATE SODIUM 100 MG CAPSULE PO SCH (07:46)
[2020-03-01] MEDS: FERROUS SULFATE 325 MG TABLET. PO SCH (07:47)
[2020-03-01] MEDS: CALCIUM CARB/VIT D3 500/200 TABLET PO SCH (07:47)
[2020-03-01] MEDS: MULTIVITAMIN with MINERAL TABLET. PO SCH (07:47)
[2020-03-01] MEDS: MAGNESIUM CHLORIDE ER 64 MG TABLET.ER PO SCH (07:47)
[2020-03-01] MEDS: metFORMIN 500 MG TABLET PO SCH (07:47)
[2020-03-01] MEDS: hydrALAZINE 25 MG TABLET PO SCH (07:48)
[2020-03-01] MEDS: LACTOBACILLUS RHAMNOSUS GG 1 CAPSULE. PO SCH (07:48)
[2020-03-01 07:49] VITALS: BP 157/79
[2020-03-01] MEDS: buPROPion XL 300 MG TAB.ER.24H. PO SCH (07:49)
[2020-03-01] MEDS: FUROSEMIDE 40 MG TABLET PO SCH (07:49)
[2020-03-01] MEDS: ATENOLOL 50 MG TABLET PO SCH (07:49)
[2020-03-01] MEDS: LEVOTHYROXINE 125 MCG TABLET PO SCH (07:49)
--- NOTE | 2020-03-01 08:34 | NUR ---
Transition Record was faxed to follow-up provider with the following elements: Reason for admission, procedures, tests, principal diagnosis, pending studies, patient instructions, 28/12 contact information for unit, phone number to obtain pending test results, plan for follow-up care, physician follow-up, advanced directive information, and medication list with dose, duration and instructions. This information was included in the following documents: History and physical, lab results, study results, progress notes, social work planning form, DC instruction form, patient visit summary, and medication reconciliation form. Date & time record faxed: 02/29/20 [id number] Record faxed to: [facility] Record discussed with/ report given to:Carla BOND
--- NOTE | 2020-03-01 22:01 | PDOC ---
Exam Note: Avni Note: Please also refer to the separate dictated note~for this date of service dictated separately.~Patient seen individually. Discussed the patient with Nursing staff reviewed the chart.~Reviewed interim history and current functioning. Reviewed vital signs,~Labs/ Radiology~and current medications noted below. Continue current treatment with the changes noted in the dictated addendum note Assessment: Vital Signs/I&O: Vital Signs Date Time Temp Pulse Resp B/P (MAP) Pulse Ox O2 Delivery O2 Flow Rate FiO2 03/01/20 07:49 57 157/79 03/01/20 06:33 98.2 18 96 02/28/20 14:22 Room Air I & O 02/29/20 02/29/20 03/01/20 15:00 23:00 07:00 Intake Total 720 ml 720 ml Balance 720 ml 720 ml Current Medications: I have reviewed the current psychotropics carefully including drug interactions. Risk benefit ratio favors no change other than as noted in my dictated progress note. Diagnosis: Problems: (1) Impulse control disorder, unspecified (2) Anxiety disorder, unspecified (3) Bipolar disorder, curr episode mixed, severe, with psychotic features JABARI ARBOLEDA MD Mar 01, 2020 22:01
--- NOTE | 2020-03-03 14:41 | DS ---
DATE OF DISCHARGE: 03/01/2020 DISCHARGE SUMMARY/PSYCHIATRIC PROGRESS NOTE This late entry date of service 03/01/2020 covers elements not covered in my initial note. REASON FOR ADMISSION: Please refer to the admission history for details. Briefly, the patient is a 69-year-old female referred to us from [facility] on account of an acute exacerbation of her bipolar disorder with psychotic features. The patient had marked mood lability, was restless and marked insomnia, delusions. She thought she was being loaded on a plane and flown to another country. She believes she had a miscarriage. She thought her roommate was . Behaviors were deemed dangerous, unmanageable at the facility, had failed outpatient psychiatric interventions resulting in this referral. SIGNIFICANT FINDINGS AND CLINICAL COURSE: Following admission, the patient was seen daily individually by myself from a psychiatric standpoint, medical followup with Dr. Caraballo/Dr. Livingston. The patient was extremely manic, hyperverbal, grandiose with marked mood lability, psychotic symptoms, distractibility. She had failed outpatient psychiatric interventions. Adjustments were made in her psychotropics since she seemed to respond to a combination of Depakote ER 1500 mg at bedtime with a blood level therapeutic at 56, Wellbutrin-XL 300 mg daily, Aricept 10 mg a day, Risperdal 1.75 mg at bedtime, trazodone 50 mg at bedtime and may repeat x 1, Zyprexa p.r.n. Multiple changes were made in her psychotropics until she was stabilized on the above regimen. The delusions about her getting , which were fairly persistent and engrained, all seemed to resolve prior to discharge. Her hospitalization was prolonged due to COVID-19 exposure on the unit and I met with her on telehealth rounds for the latter part of her hospitalization. REVIEW OF SYSTEMS: Prior to discharge 03/01/2020, ambulation impaired. No CV, , pulmonary, eye system symptoms on review. MENTAL STATUS EXAM: Reasonably oriented. Speech is coherent, abstraction fair, computation impaired, language function intact, attention span short. Mood and affect somewhat withdrawn. LABORATORY DATA: Reviewed. IMPRESSION: Bipolar 1 disorder, mixed with psychotic features, in partial remission; mild cognitive impairment; anxiety disorder, unspecified; impulse control disorder, unspecified. Rest unchanged from admission. DISCHARGE MEDICATIONS: Please refer to the MRAD. DISCHARGE INSTRUCTIONS: [facility] at [facility]. Time for discharge day management greater than 30 minutes. JABARI ARBOLEDA MD DR: KANA/yvon JOB#: [id number] / [id number]
== END 2020-03-01 11:05 | DRG 885 ==
LOC: GEROPSY 14:18
PROVIDERS: ADMIT Psychiatry & Neurology Psychiatry; ATTEND Psychiatry & Neurology Psychiatry
DX: F31.64 Bipolar disorder, current episode mixed, severe, with psychotic features (principal); K80.00 Calculus of gallbladder with acute cholecystitis without obstruction; Z68.41 Body mass index [BMI] 40.0-44.9, adult; E03.9 Hypothyroidism, unspecified; E11.9 Type 2 diabetes mellitus without complications; E78.5 Hyperlipidemia, unspecified; F03.90 Unspecified dementia, unspecified severity, without behavioral disturbance, psychotic disturbance, mood disturbance, and anxiety; F43.10 Post-traumatic stress disorder, unspecified; F63.9 Impulse disorder, unspecified; F84.0 Autistic disorder; G47.00 Insomnia, unspecified; H91.90 Unspecified hearing loss, unspecified ear; I11.0 Hypertensive heart disease with heart failure; I50.9 Heart failure, unspecified; J45.909 Unspecified asthma, uncomplicated; M19.90 Unspecified osteoarthritis, unspecified site; R32 Unspecified urinary incontinence; Z66 Do not resuscitate; Z79.899 Other long term (current) drug therapy; K21.9 Gastro-esophageal reflux disease without esophagitis; Z20.828 Contact with and (suspected) exposure to other viral communicable diseases; D50.9 Iron deficiency anemia, unspecified; E66.9 Obesity, unspecified
CPT/HCPCS: 36415; 71046; 76705; 80053; 80061; 80164; 81001; 82306; 82607; 82947; 83036; 83540; 83550; 83690; 83735; 83880; 84436; 84443; 84480; 85025; 85027; 86592; 87426; 93970; 94640; J7613; 97535; U0003-CS

== ENCOUNTER 2020-09-02 14:35 | Inpatient (IN) | payer MEDICARE, OTHER ==
[~2020-09-02] VITALS: Ht 156.2 cm; Wt 103.5 kg
[~2020-09-02 14:35] MED LIST: ACET325T9 PO; ALBU2.5V8 IH; AMLO-187 PO; ATEN-57 PO; BUPR300T3 PO; CALC-496 PO; CLON0.5T4 PO; DIVA250T PO; DOCU-109 PO; DONE10TA7 PO; ESCITALOPRAM OX20 MG PO; FERR325T14 PO; FLUT9.9S NS; FURO-68 PO; GUAI600T47 PO; HYDR-2868 PO; LEVO125T5 PO; MAG355OR12 PO; MAGN24003 PO; MAGN64TA6 PO; METF10007 PO; METH57CR17 TP; MONT10TA80 PO; MULT-121 PO; OLAN5TAB99 PO; OXYB-36 PO; PANT40TA3 PO; POLY15DR27 EACHEYE; POLY17PO5 PO; RISP0.5T62 PO; RISP1TAB88 PO; TRAZ-120 PO
[2020-09-02] MEDS ORDERED: MAG HYDROX/AL HYDROX/SIMETH 30 ML ORAL.SUSP PO PRN ×2 (15:00→16:15)
[2020-09-02] MEDS ORDERED: ACETAMINOPHEN 325 MG TABLET PO PRN ×2 (15:00→16:15)
[2020-09-02] MEDS ORDERED: METHYL SALICYLATE/MENTHOL TOPICAL OINTMENT 57GM TUBE. TP PRN ×2 (15:00→16:15)
[2020-09-02] MEDS ORDERED: MAGNESIUM HYDROXIDE 2,400 MG/30 ML ORAL.SUSP. PO PRN (15:00)
[2020-09-02 15:09] VITALS: BP 178/88
[2020-09-02] MEDS ORDERED: traZODone 50 MG TABLET. PO PRN (16:15)
[2020-09-02] MEDS ORDERED: NON FORMULARY ITEM (Magnesium Hydroxide (Milk Of Magnesia) 2,400 MG) PO PRN (16:15)
[2020-09-02] MEDS ORDERED: HYDR25SU18 RC (16:18)
[2020-09-02] MEDS ORDERED: GUAI-519 PO (16:18)
[2020-09-02] MEDS ORDERED: guaiFENesin 300 MG/15 ML LIQUID PO PRN (16:30)
[2020-09-02] MEDS ORDERED: HYDROCORTISONE ACETATE 25 MG SUPP.RECT RC PRN (16:30)
--- NOTE | 2020-09-02 17:28 | EKG ---
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
[2020-09-02 19:47] LABS: BASO # 0.1 x10^3/uL (0.0-0.2); BASO % 1 % (0-3); EOS # 0.1 x10^3/uL (0.0-0.7); EOS % 2 % (0-3); HEMATOCRIT 38.9 % (36.0-47.0); HEMOGLOBIN 12.6 g/dL (12.0-15.5); LYMPH # 1.7 x10^3/uL (1.0-4.8); LYMPH % 24 % (24-48); MEAN CORPUSCULAR HEMOGLOBIN 30 pg (25-35); MEAN CORPUSCULAR HGB CONC 33 g/dL (31-37); MEAN CORPUSCULAR VOLUME 92 fL (79-100); MONO % 14 % (0-9); NEUT # 4.2 x10^3uL (1.8-7.7); NEUT % 59 % (31-73); PLATELET COUNT 258 x10^3/uL (140-400); RED BLOOD COUNT 4.25 x10^6/uL (3.50-5.40); RED CELL DISTRIBUTION WIDTH 17.2 % (11.5-14.5)
[2020-09-02 20:03] LABS: ALBUMIN 3.4 g/dL (3.4-5.0); ALBUMIN/GLOBULIN RATIO 0.9 (1.0-1.7); ALK PHOS 71 U/L (46-116); ALT (SGPT) 23 U/L (14-59); ANION GAP 8 (6-14); AST (SGOT) 13 U/L (15-37); BLOOD UREA NITROGEN 33 mg/dL (7-20); BUN/CREATININE RATIO 19 (6-20); CALCIUM 9.7 mg/dL (8.5-10.1); CARBON DIOXIDE 28 mmol/L (21-32); CHLORIDE 104 mmol/L (98-107); CREATININE 1.7 mg/dL (0.6-1.0); GFR 29.6; GLUCOSE 153 mg/dL (70-99); MAGNESIUM 1.9 mg/dL (1.8-2.4); POTASSIUM 3.9 mmol/L (3.5-5.1); SODIUM 140 mmol/L (136-145); TOTAL BILIRUBIN 0.3 mg/dL (0.2-1.0); TOTAL PROTEIN 7.4 g/dL (6.4-8.2)
[2020-09-02 20:05] LABS: VAL ACID 26 mcg/mL (50-100)
[2020-09-02] MEDS: risperiDONE 1 MG TABLET. PO SCH (21:26)
[2020-09-02] MEDS: hydrALAZINE 25 MG TABLET PO SCH (21:26)
[2020-09-02] MEDS: MONTELUKAST 10 MG TABLET. PO SCH (21:26)
[2020-09-02] MEDS: PANTOPRAZOLE 40 MG TABLET. PO SCH (21:26)
[2020-09-02] MEDS: DIVALPROEX ER 500 MG TAB.ER.24H PO SCH (21:26)
[2020-09-02] MEDS: risperiDONE 0.25 MG TABLET. PO SCH (21:28)
[2020-09-02] MEDS: DONEPEZIL HCL 10 MG TABLET PO SCH (21:28)
[2020-09-02] MEDS: ALBUTEROL SULFATE 8GM INHALER. INH SCH (21:28)
[2020-09-02] MEDS: POLYVINYL ALCOHOL 1.4% OPHTH SOLUTION 15ML BOTTLE. OU SCH (21:28)
[2020-09-02] MEDS: traZODone 50 MG TABLET. PO SCH (21:29)
[2020-09-02] MEDS: OXYBUTYNIN CHLORIDE 5 MG TABLET PO SCH (21:30)
[2020-09-03] MEDS: LEVOTHYROXINE 125 MCG TABLET PO SCH (05:31)
[2020-09-03 05:42] VITALS: BP 164/81
[2020-09-03 07:59] LABS: BACTERIA,URINE 0 /HPF (0-FEW); BILIRUBIN,URINE NEG (NEG); CLARITY,URINE CLEAR; COLOR,URINE YELLOW; GLUCOSE,URINE NEG (NEG); NITRITE,URINE NEG (NEG); RBC,URINE OCC /HPF (0-2); SQUAMOUS EPITHELIAL CELL,UR MANY /LPF; UROBILINOGEN,URINE 0.2 mg/dL (0.2 mg/dL)
[2020-09-03] MEDS: POLYETHYLENE GLYCOL 3350 17 GM PACKET. PO SCH (08:06)
[2020-09-03] MEDS: CALCIUM CARB/VIT D3 500/200 TABLET PO SCH (08:07)
[2020-09-03] MEDS: hydrALAZINE 25 MG TABLET PO SCH ×3 (08:07→20:40)
[2020-09-03] MEDS: MAGNESIUM CHLORIDE ER 64 MG TABLET.ER PO SCH ×2 (08:07→09:00)
[2020-09-03] MEDS: FUROSEMIDE 40 MG TABLET PO SCH (08:07)
[2020-09-03] MEDS: DOCUSATE SODIUM 100 MG CAPSULE PO SCH ×2 (08:07→09:00)
[2020-09-03] MEDS: amLODIPine BESYLATE 10 MG TABLET PO SCH (08:08)
[2020-09-03] MEDS: buPROPion XL 300 MG TAB.ER.24H. PO SCH (08:08)
[2020-09-03] MEDS: ATENOLOL 50 MG TABLET PO SCH (08:08)
[2020-09-03] MEDS: MULTIVITAMIN with MINERAL TABLET. PO SCH (08:08)
[2020-09-03] MEDS: FERROUS SULFATE 325 MG TABLET. PO SCH ×2 (08:08→09:00)
[2020-09-03] MEDS: FLUTICASONE 50MCG/NASAL SPRAY 16GM BOTTLE. NS SCH (08:09)
[2020-09-03] MEDS: ALBUTEROL SULFATE 8GM INHALER. INH SCH ×2 (08:09→20:28)
[2020-09-03] MEDS: POLYVINYL ALCOHOL 1.4% OPHTH SOLUTION 15ML BOTTLE. OU SCH ×2 (08:09→20:28)
[2020-09-03] MEDS: metFORMIN 500 MG TABLET PO SCH (08:11)
[2020-09-03 14:36] LABS: THYROID STIM HORMONE (TSH) 1.263 uIU/mL (0.358-3.740)
[2020-09-03 16:02] VITALS: BP 147/77
[2020-09-03] MEDS: DIVALPROEX ER 500 MG TAB.ER.24H PO SCH (20:29)
[2020-09-03] MEDS: risperiDONE 0.25 MG TABLET. PO SCH (20:30)
[2020-09-03] MEDS: DONEPEZIL HCL 10 MG TABLET PO SCH (20:31)
[2020-09-03] MEDS: PANTOPRAZOLE 40 MG TABLET. PO SCH (20:31)
[2020-09-03] MEDS: MONTELUKAST 10 MG TABLET. PO SCH (20:31)
[2020-09-03] MEDS: traZODone 50 MG TABLET. PO SCH (20:31)
[2020-09-03] MEDS: OXYBUTYNIN CHLORIDE 5 MG TABLET PO SCH (20:31)
[2020-09-03] MEDS: risperiDONE 1 MG TABLET. PO SCH (20:31)
[2020-09-03 22:09] LABS: THYROXINE 7.5 ug/dL (4.5-12.0)
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
[2020-09-04 05:49] VITALS: BP 157/77
[2020-09-04] MEDS: LEVOTHYROXINE 125 MCG TABLET PO SCH (06:00)
[2020-09-04] MEDS: POLYVINYL ALCOHOL 1.4% OPHTH SOLUTION 15ML BOTTLE. OU SCH ×3 (08:27→19:51)
[2020-09-04] MEDS: ALBUTEROL SULFATE 8GM INHALER. INH SCH ×3 (08:27→19:51)
[2020-09-04] MEDS: POLYETHYLENE GLYCOL 3350 17 GM PACKET. PO SCH (08:27)
[2020-09-04] MEDS: FERROUS SULFATE 325 MG TABLET. PO SCH (08:28)
[2020-09-04] MEDS: DOCUSATE SODIUM 100 MG CAPSULE PO SCH (08:28)
[2020-09-04] MEDS: hydrALAZINE 25 MG TABLET PO SCH ×3 (08:28→19:45)
[2020-09-04] MEDS: amLODIPine BESYLATE 10 MG TABLET PO SCH (08:28)
[2020-09-04] MEDS: CALCIUM CARB/VIT D3 500/200 TABLET PO SCH (08:29)
[2020-09-04] MEDS: MULTIVITAMIN with MINERAL TABLET. PO SCH ×2 (08:29→08:40)
[2020-09-04] MEDS: FUROSEMIDE 40 MG TABLET PO SCH (08:29)
[2020-09-04] MEDS: MAGNESIUM CHLORIDE ER 64 MG TABLET.ER PO SCH (08:29)
[2020-09-04] MEDS: metFORMIN 500 MG TABLET PO SCH (08:29)
[2020-09-04] MEDS: ATENOLOL 50 MG TABLET PO SCH (08:29)
[2020-09-04] MEDS: buPROPion XL 300 MG TAB.ER.24H. PO SCH (08:29)
[2020-09-04] MEDS: FLUTICASONE 50MCG/NASAL SPRAY 16GM BOTTLE. NS SCH (08:30)
--- NOTE | 2020-09-04 09:22 | CONS ---
DATE OF CONSULTATION: 09/03/2020 REASON FOR CONSULTATION: Medical management. HISTORY OF PRESENT ILLNESS: The patient is a 70-year-old female patient, resident at [facility] who was admitted [facility] on account of insomnia, threatening staff, screaming, refusing medication, refusing vitals, suspicious of staff, pointed knife at the staff, staff found a knife under her pillow. She is impulsive, all this in a background of bipolar disorder, but with the most recent manic episode; she was admitted to this facility for inpatient psychiatric stabilization. Medically, the patient is known to have type 2 diabetes mellitus, hyperlipidemia, gastroesophageal reflux disease, congestive heart failure, hypothyroidism, anemia. PAST PSYCHIATRIC HISTORY: Significant for anxiety and impulse control as well as bipolar disorder and dementia with behavioral disturbances. ALLERGIES: She is allergic to ADHESIVES, FLUOXETINE, AND PENICILLIN. PAST SURGICAL HISTORY: Unremarkable. FAMILY HISTORY: Noncontributory. SOCIAL HISTORY: She is a resident at [facility]. She apparently does not smoke, drink alcohol or use any recreational drugs. MEDICATIONS: She is currently on following medications: She is on Aricept 10 mg at bedtime, albuterol sulfate 2 puffs twice a day, ferrous sulfate 325 mg daily, hydralazine 25 mg t.i.d., atenolol 50 mg daily, amlodipine besylate 10 mg once a day. She is on BenGay Greaseless cream applied topically 4 times a day, acetaminophen 650 mg every 4 hours, divalproex sodium 1500 mg at bedtime. She is on Wellbutrin-XL 300 mg extended release 1 tablet daily, trazodone 50 mg at bedtime, trazodone 50 mg as needed. She is on olanzapine 5 mg or Zyprexa Zydis takes 2.5 mg every 2 hours as needed, risperidone 0.25 mg at bedtime, risperidone 1 mg at bedtime, calcium carbonate with vitamin D one tablet once a day, magnesium chloride 64 mg once a day, furosemide 40 mg daily, Singulair 10 mg once a day, guaifenesin or Mucinex 1200 mg twice a day, and Cheratussin 100 mg every 2 hours as needed, Flonase 2 sprays to each nostril once a day, polyvinyl alcohol or Artificial Tears 2 drops to each eye twice a day, Maalox 30 mL every 2 hours as needed, Colace 100 mg daily, magnesium hydroxide or Milk of Magnesia 30 mL p.o. daily p.r.n. for constipation, polyethylene glycol 17 grams daily, Protonix 40 mg at bedtime, metformin 1000 mg daily with breakfast, levothyroxine sodium 125 mcg once a day, hydrocortisone acetate 25 mg suppositories rectally daily p.r.n. for pain. She is on oxybutynin chloride 5 mg at bedtime, multivitamin 1 tablet once a day. REVIEW OF SYSTEMS: Unobtainable. PHYSICAL EXAMINATION: GENERAL: When I examined her, she was sitting on her chair comfortably in no apparent respiratory distress. There was no pallor, jaundice, cyanosis or thyromegaly. No jugular venous distention. No limb edema. VITAL SIGNS: Her heart rate was 64, blood pressure was 164/81, temperature was 96.5, respiratory rate was 16, and oxygen saturation was 94% on room air. HEAD, EYES, EARS, NOSE AND THROAT: Showed normocephalic, atraumatic. NECK: Supple. HEART: Normal first and second heart sounds. No gallop, rub or murmur. CHEST: Clear to auscultation. No crepitation or rhonchi. ABDOMEN: Distended, soft, nontender. NEUROLOGIC: She was grossly intact. All her cranial nerves are intact. EXTREMITIES: She moves her extremities without difficulty. She ambulates with a walker. LABORATORY DATA: Has had lab work done, which showed a white cell count 7000, hemoglobin 13, hematocrit 39, MCV 92, and platelet count 258,000. Her chemistry showed a serum sodium 140, potassium 3.9, chloride 104, bicarbonate 28, anion gap of 8, BUN 33, creatinine 1.7, estimated GFR was 30 mL per minute. Her glucose 153, calcium was 9.7, magnesium was 1.9. Serum iron was 41, TIBC was 284 and iron saturation was 14. Her total bilirubin, AST, ALT, alkaline phosphatase were normal. Total protein 7.4, albumin was 3.4. Serum triglyceride 410, total cholesterol 232, LDL was 135, VLDL was 22, HDL was 75 and the ratio was 3. Her vitamin B12 was 632 pg/mL, 25-hydroxy vitamin D was 30. TSH was normal at 1.265. Her D-dimer was 0.2 mg/dL. Urinalysis essentially unremarkable and toxic screen showed that valproic acid to be a low at 26 mcg/mL. Her Treponema pallidum antibodies were nonreactive. ASSESSMENT AND PLAN: In summary, this is a 70-year-old female patient, a resident at [facility], who was admitted on account of threatening staff, screaming, refusing medication, refusing vitals, suspicious of staff, have pointed knife at the staff and the nursing staff found knife under her pillow. She is impulsive, all this in a background of bipolar disorder with most recent episode that was manic. Medically, she has multiple medical problems including type 2 diabetes mellitus, gastroesophageal reflux disease, congestive heart failure, hyperlipidemia, hypothyroidism and anemia. She does have also chronic kidney disease, all in all, she seemed to be medically stable all her vitals, apart from slightly elevated blood pressure. She is already on atenolol 50 mg once a day, otherwise all her lab work seems to be within acceptable range. I would continue all her current medications and follow her lab work closely and if her blood pressure continues to be high, we might have to increase either metoprolol, add timolol or add a new antihypertensive medication. Thank you, Dr. Tee for allowing me to participate in the care of this patient. TEAGAN CARLOS MD DR: LIBIA/yvon JOB#: [id number] / [id number]
[2020-09-04 15:21] VITALS: BP 142/88
[2020-09-04] MEDS: DONEPEZIL HCL 10 MG TABLET PO SCH (19:44)
[2020-09-04] MEDS: risperiDONE 1 MG TABLET. PO SCH (19:45)
[2020-09-04] MEDS: traZODone 50 MG TABLET. PO SCH (19:45)
[2020-09-04] MEDS: OXYBUTYNIN CHLORIDE 5 MG TABLET PO SCH (19:46)
[2020-09-04] MEDS: risperiDONE 0.25 MG TABLET. PO SCH (19:46)
[2020-09-04] MEDS: DIVALPROEX ER 500 MG TAB.ER.24H PO SCH (19:47)
[2020-09-04] MEDS: MONTELUKAST 10 MG TABLET. PO SCH (19:47)
[2020-09-04] MEDS: PANTOPRAZOLE 40 MG TABLET. PO SCH (19:51)
[2020-09-05 05:59] VITALS: BP 146/80
[2020-09-05] MEDS: LEVOTHYROXINE 125 MCG TABLET PO SCH (06:25)
[2020-09-05] MEDS: DOCUSATE SODIUM 100 MG CAPSULE PO SCH (08:03)
[2020-09-05] MEDS: metFORMIN 500 MG TABLET PO SCH (08:04)
[2020-09-05] MEDS: hydrALAZINE 25 MG TABLET PO SCH ×3 (08:04→20:05)
[2020-09-05] MEDS: MULTIVITAMIN with MINERAL TABLET. PO SCH (08:04)
[2020-09-05] MEDS: ATENOLOL 50 MG TABLET PO SCH (08:04)
[2020-09-05] MEDS: amLODIPine BESYLATE 10 MG TABLET PO SCH (08:04)
[2020-09-05] MEDS: CALCIUM CARB/VIT D3 500/200 TABLET PO SCH (08:05)
[2020-09-05] MEDS: FERROUS SULFATE 325 MG TABLET. PO SCH (08:05)
[2020-09-05] MEDS: POLYETHYLENE GLYCOL 3350 17 GM PACKET. PO SCH ×2 (08:05→08:25)
[2020-09-05] MEDS: buPROPion XL 300 MG TAB.ER.24H. PO SCH (08:05)
[2020-09-05] MEDS: FUROSEMIDE 40 MG TABLET PO SCH (08:05)
[2020-09-05] MEDS: MAGNESIUM CHLORIDE ER 64 MG TABLET.ER PO SCH (08:05)
[2020-09-05] MEDS: ALBUTEROL SULFATE 8GM INHALER. INH SCH ×2 (08:09→20:06)
[2020-09-05] MEDS: POLYVINYL ALCOHOL 1.4% OPHTH SOLUTION 15ML BOTTLE. OU SCH ×2 (08:09→20:06)
--- NOTE | 2020-09-05 09:35 | PN ---
DATE: 09/04/2020 SUBJECTIVE: The patient was seen today, met with the staff, chart reviewed. Staff reports much calmer, pleasant, but resistant to take medications. The patient also staying in bed most of the time. OBSERVATION: VITAL SIGNS: Temperature 98.5, blood pressure 147/77, pulse 57, respirations 20, O2 sat 95%. The patient's appetite improved. MEDICATIONS: The patient's current medications include Wellbutrin-XL 300 mg daily, Risperdal 1 mg at night and 0.25 mg at night, Depakote 1500 mg at night, also trazodone 50 mg at night p.r.n. for sleep. The patient is not showing any side effects to the medications. LABORATORY DATA: The patient's lab reviewed. The patient's glucose fingerstick was 123. Hemoglobin A1c was 6. The patient also has hyperlipidemia, elevated cholesterol, LDL 135, HDL 75. ASSESSMENT: 1. Bipolar disorder, mixed, with psychotic features. 2. Generalized anxiety disorder. 3. Impulse control disorder, unspecified. PLAN: To continue with the current treatment plan. LENGTH OF STAY: 7-10 days. STEPHANIE LI MD DR: SYLVIE/yvon JOB#: [id number] / [id number]
[2020-09-05] MEDS: FLUTICASONE 50MCG/NASAL SPRAY 16GM BOTTLE. NS SCH (10:23)
[2020-09-05 16:05] VITALS: BP 123/71
[2020-09-05] MEDS: DIVALPROEX ER 500 MG TAB.ER.24H PO SCH (20:04)
[2020-09-05] MEDS: MONTELUKAST 10 MG TABLET. PO SCH (20:04)
[2020-09-05] MEDS: traZODone 50 MG TABLET. PO SCH (20:04)
[2020-09-05] MEDS: OXYBUTYNIN CHLORIDE 5 MG TABLET PO SCH (20:05)
[2020-09-05] MEDS: PANTOPRAZOLE 40 MG TABLET. PO SCH (20:05)
[2020-09-05] MEDS: risperiDONE 0.25 MG TABLET. PO SCH (20:05)
[2020-09-05] MEDS: risperiDONE 1 MG TABLET. PO SCH (20:05)
[2020-09-05] MEDS: DONEPEZIL HCL 10 MG TABLET PO SCH (20:05)
--- NOTE | 2020-09-05 22:17 | PN ---
DATE: 09/05/2020 SUBJECTIVE: The patient was seen today, met with the staff, chart reviewed and also covering for Dr. Tee. The patient was evaluated by Telepsychiatry. Staff reports she is much calmer, pleasant, but resistant to take medications. She is also staying in bed most of the time. OBSERVATION: VITAL SIGNS: Temperature 97.6, blood pressure 184/78, pulse 78, respirations 20, O2 sat 90%. GENERAL: Slept about 8 hours last night. CURRENT MEDICATIONS: The patient's current medications include Wellbutrin XL 300 mg daily, Risperdal 1 mg at night and 0.25 mg at night, Depakote 1500 mg at night, trazodone 50 mg at night p.r.n. for sleep. The patient is not having any side effects to medications. LABORATORY DATA: The patient's lab reviewed. ASSESSMENT: 1. Bipolar disorder, mixed, with psychotic features. 2. Generalized anxiety disorder. 3. Impulse control disorder, unspecified. PLAN: To continue with the current treatment plan. LENGTH OF STAY: 7-10 days. STEPHANIE LI MD DR: SYLVIE/yvon JOB#: [id number] / [id number]
[2020-09-06] MEDS: LEVOTHYROXINE 125 MCG TABLET PO SCH (05:15)
[2020-09-06 06:21] VITALS: BP 154/70
[2020-09-06 06:24] LABS: VAL ACID 79 mcg/mL (50-100)
[2020-09-06] MEDS: MAGNESIUM CHLORIDE ER 64 MG TABLET.ER PO SCH (07:27)
[2020-09-06] MEDS: DOCUSATE SODIUM 100 MG CAPSULE PO SCH (07:27)
[2020-09-06] MEDS: hydrALAZINE 25 MG TABLET PO SCH ×3 (07:28→20:54)
[2020-09-06] MEDS: metFORMIN 500 MG TABLET PO SCH (07:28)
[2020-09-06] MEDS: CALCIUM CARB/VIT D3 500/200 TABLET PO SCH (07:28)
[2020-09-06] MEDS: ATENOLOL 50 MG TABLET PO SCH (07:28)
[2020-09-06] MEDS: amLODIPine BESYLATE 10 MG TABLET PO SCH (07:28)
[2020-09-06] MEDS: MULTIVITAMIN with MINERAL TABLET. PO SCH (07:29)
[2020-09-06] MEDS: buPROPion XL 300 MG TAB.ER.24H. PO SCH (07:29)
[2020-09-06] MEDS: POLYETHYLENE GLYCOL 3350 17 GM PACKET. PO SCH (07:29)
[2020-09-06] MEDS: FERROUS SULFATE 325 MG TABLET. PO SCH (07:29)
[2020-09-06] MEDS: FUROSEMIDE 40 MG TABLET PO SCH (07:29)
[2020-09-06] MEDS: FLUTICASONE 50MCG/NASAL SPRAY 16GM BOTTLE. NS SCH (07:32)
[2020-09-06] MEDS: POLYVINYL ALCOHOL 1.4% OPHTH SOLUTION 15ML BOTTLE. OU SCH ×4 (07:32→21:34)
[2020-09-06] MEDS: ALBUTEROL SULFATE 8GM INHALER. INH SCH ×2 (07:32→20:56)
[2020-09-06 15:42] VITALS: BP 145/89
--- NOTE | 2020-09-06 20:41 | PN ---
DATE: 09/06/2020 SUBJECTIVE: The patient was seen today, met with the staff, chart reviewed, and covering for Dr. Tee. The patient continues to show improvement. She has been out of her bed, able to spend time with the other residents. The patient is less irritable and quintero. The patient is still resistant to take medications. OBSERVATIONS: VITAL SIGNS: Temperature 97.5, blood pressure 181/99, pulse 65, respirations 16, O2 sat 96%. GENERAL: Slept about 7.25 hours. MEDICATIONS: The patient's current medications include Wellbutrin-XL 300 mg daily, Risperdal 1 mg at night and 0.25 mg at night, Depakote 1500 mg at night, trazodone 50 mg at night for sleep p.r.n. The patient is not experiencing any side effects. LABORATORY DATA: Reviewed. ASSESSMENT: 1. Bipolar disorder, mixed, with psychotic features. 2. Generalized anxiety disorder. 3. Impulse control disorder, unspecified. PLAN: To continue with the treatment. LENGTH OF STAY: 7-10 days. STEPHANIE LI MD DR: SYLVIE/yvon JOB#: [id number] / [id number]
[2020-09-06] MEDS: DIVALPROEX ER 500 MG TAB.ER.24H PO SCH (20:54)
[2020-09-06] MEDS: MONTELUKAST 10 MG TABLET. PO SCH (20:54)
[2020-09-06] MEDS: risperiDONE 0.25 MG TABLET. PO SCH (20:54)
[2020-09-06] MEDS: OXYBUTYNIN CHLORIDE 5 MG TABLET PO SCH (20:54)
[2020-09-06] MEDS: DONEPEZIL HCL 10 MG TABLET PO SCH (20:55)
[2020-09-06] MEDS: traZODone 50 MG TABLET. PO SCH (20:55)
[2020-09-06] MEDS: risperiDONE 1 MG TABLET. PO SCH (20:55)
[2020-09-06] MEDS: PANTOPRAZOLE 40 MG TABLET. PO SCH (20:55)
[2020-09-07] MEDS: LEVOTHYROXINE 125 MCG TABLET PO SCH (05:24)
[2020-09-07 06:08] VITALS: BP 131/72
[2020-09-07] MEDS: CALCIUM CARB/VIT D3 500/200 TABLET PO SCH ×2 (07:45→09:16)
[2020-09-07] MEDS: FERROUS SULFATE 325 MG TABLET. PO SCH ×2 (07:45→09:16)
[2020-09-07] MEDS: MAGNESIUM CHLORIDE ER 64 MG TABLET.ER PO SCH ×2 (07:46→09:16)
[2020-09-07] MEDS: metFORMIN 500 MG TABLET PO SCH (07:46)
[2020-09-07] MEDS: ATENOLOL 50 MG TABLET PO SCH ×2 (07:48→09:16)
[2020-09-07] MEDS: DOCUSATE SODIUM 100 MG CAPSULE PO SCH ×2 (07:48→09:16)
[2020-09-07] MEDS: hydrALAZINE 25 MG TABLET PO SCH ×4 (07:50→20:03)
[2020-09-07] MEDS: amLODIPine BESYLATE 10 MG TABLET PO SCH ×2 (07:50→09:16)
[2020-09-07] MEDS: MULTIVITAMIN with MINERAL TABLET. PO SCH ×2 (07:51→09:17)
[2020-09-07] MEDS: FUROSEMIDE 40 MG TABLET PO SCH (07:51)
[2020-09-07] MEDS: POLYETHYLENE GLYCOL 3350 17 GM PACKET. PO SCH ×2 (07:52→09:16)
[2020-09-07] MEDS: POLYVINYL ALCOHOL 1.4% OPHTH SOLUTION 15ML BOTTLE. OU SCH (07:52)
[2020-09-07] MEDS: buPROPion XL 300 MG TAB.ER.24H. PO SCH ×2 (07:52→09:17)
[2020-09-07] MEDS: FLUTICASONE 50MCG/NASAL SPRAY 16GM BOTTLE. NS SCH (07:52)
[2020-09-07] MEDS: ALBUTEROL SULFATE 8GM INHALER. INH SCH ×2 (07:53→19:44)
[2020-09-07 16:33] VITALS: BP 160/76
[2020-09-07] MEDS: MONTELUKAST 10 MG TABLET. PO SCH ×2 (19:41→20:04)
[2020-09-07] MEDS: DIVALPROEX ER 500 MG TAB.ER.24H PO SCH (19:41)
[2020-09-07] MEDS: PANTOPRAZOLE 40 MG TABLET. PO SCH ×2 (19:41→20:04)
[2020-09-07] MEDS: DONEPEZIL HCL 10 MG TABLET PO SCH ×2 (19:41→20:03)
[2020-09-07] MEDS: OXYBUTYNIN CHLORIDE 5 MG TABLET PO SCH ×2 (19:41→20:04)
[2020-09-07] MEDS: traZODone 50 MG TABLET. PO SCH ×2 (19:43→20:03)
--- NOTE | 2020-09-07 19:48 | PN ---
DATE: 09/07/2020 SUBJECTIVE: The patient was seen today, met with the staff, chart reviewed and also covering for Dr. Tee. Staff reports that the patient is refusing to take her medications, but her behavior is slightly improved. She is able to come out of her room, able to walk, pleasant and she walks with a walker. Still suspicious with medications. OBSERVATION: VITAL SIGNS: Temperature 98.1, blood pressure 158/80, pulse 71, respiration 18, O2 sat 97%. GENERAL: Slept about 6 hours last night. The patient's appetite improved. MEDICATIONS: The patient's current medications include Wellbutrin-XL 300 mg daily, Risperdal 1 mg at night and 0.25 mg ___, Depakote 1500 mg at night and trazodone 50 mg at night for sleep p.r.n. The patient is not having any side effects. LABORATORY DATA: Reviewed. ASSESSMENT: 1. Bipolar disorder, mixed, with psychotic features. 2. Generalized anxiety disorder. 3. Impulse control disorder, unspecified. PLAN: To continue with the treatment. LENGTH OF STAY: 7-10 days. STEPHANIE LI MD DR: SYLVIE/yvon JOB#: [id number] / [id number]
[2020-09-08] MEDS: LEVOTHYROXINE 125 MCG TABLET PO SCH (05:02)
[2020-09-08 05:58] VITALS: BP 164/73
[2020-09-08] MEDS: hydrALAZINE 25 MG TABLET PO SCH ×3 (08:02→20:09)
[2020-09-08] MEDS: FERROUS SULFATE 325 MG TABLET. PO SCH (08:02)
[2020-09-08] MEDS: MULTIVITAMIN with MINERAL TABLET. PO SCH (08:02)
[2020-09-08] MEDS: MAGNESIUM CHLORIDE ER 64 MG TABLET.ER PO SCH (08:02)
[2020-09-08] MEDS: CALCIUM CARB/VIT D3 500/200 TABLET PO SCH (08:02)
[2020-09-08] MEDS: metFORMIN 500 MG TABLET PO SCH (08:02)
[2020-09-08] MEDS: FUROSEMIDE 40 MG TABLET PO SCH (08:03)
[2020-09-08] MEDS: POLYETHYLENE GLYCOL 3350 17 GM PACKET. PO SCH (08:03)
[2020-09-08] MEDS: DOCUSATE SODIUM 100 MG CAPSULE PO SCH (08:03)
[2020-09-08] MEDS: buPROPion XL 300 MG TAB.ER.24H. PO SCH (08:03)
[2020-09-08] MEDS: amLODIPine BESYLATE 10 MG TABLET PO SCH (08:03)
[2020-09-08] MEDS: ATENOLOL 50 MG TABLET PO SCH (08:03)
[2020-09-08] MEDS: ALBUTEROL SULFATE 8GM INHALER. INH SCH ×2 (08:05→20:23)
[2020-09-08] MEDS: HALOPERIDOL 0.5 MG TABLET PO SCH (08:05)
[2020-09-08] MEDS: POLYVINYL ALCOHOL 1.4% OPHTH SOLUTION 15ML BOTTLE. OU SCH ×2 (08:05→20:23)
[2020-09-08] MEDS: FLUTICASONE 50MCG/NASAL SPRAY 16GM BOTTLE. NS SCH (08:05)
[2020-09-08 16:18] VITALS: BP 164/97
[2020-09-08] MEDS: traZODone 50 MG TABLET. PO SCH (20:08)
[2020-09-08] MEDS: OXYBUTYNIN CHLORIDE 5 MG TABLET PO SCH (20:08)
[2020-09-08] MEDS: DONEPEZIL HCL 10 MG TABLET PO SCH (20:09)
[2020-09-08] MEDS: MONTELUKAST 10 MG TABLET. PO SCH (20:09)
[2020-09-08] MEDS: PANTOPRAZOLE 40 MG TABLET. PO SCH (20:09)
[2020-09-08] MEDS: VALPROATE ACID 250 MG/5 ML ORAL SOLUTION PO SCH (20:10)
[2020-09-08] MEDS: DIVALPROEX ER 500 MG TAB.ER.24H PO SCH (20:10)
--- NOTE | 2020-09-08 21:55 | PN ---
DATE: 09/08/2020 SUBJECTIVE: The patient was seen today, met with the staff, chart reviewed and also covering for Dr. Tee. Staff reports that the patient has been quintero, irritable, depressed, refused her medications, only took Depakote and Mucinex inhaler. She was up most of the night, sitting in the chair. The patient admits she is upset about everything and she does not want to be in the hospital. The patient is also angry because she was not informed about her medical condition and further treatment for her lung cancer. OBSERVATION: VITAL SIGNS: Temperature 97.4, blood pressure 164/98, pulse 68, respirations 14, O2 sat 94%. GENERAL: Sleep 3 hours last night. The patient's appetite decreased. MEDICATIONS: The patient's current medications include Haldol 0.5 mg daily, bupropion 300 mg daily, trazodone 50 mg at night, Aricept 10 mg at night, Depakote 1500 mg at night. The patient is not having any side effects. LABORATORY DATA: The patient's lab reviewed. The patient's Depakote level was 79. ASSESSMENT: 1. Bipolar disorder, mixed, with psychotic features. 2. Generalized anxiety disorder. 3. Impulse control disorder, unspecified. PLAN: To continue with the treatment. LENGTH OF STAY: 7 days. STEPHANIE LI MD DR: SYLVIE/yvon JOB#: [id number] / [id number]
[2020-09-09] MEDS: LEVOTHYROXINE 125 MCG TABLET PO SCH (05:30)
[2020-09-09 06:09] VITALS: BP 152/83
[2020-09-09 06:55] LABS: BASO # 0.1 x10^3/uL (0.0-0.2); BASO % 1 % (0-3); EOS # 0.2 x10^3/uL (0.0-0.7); EOS % 3 % (0-3); HEMATOCRIT 35.5 % (36.0-47.0); HEMOGLOBIN 11.6 g/dL (12.0-15.5); LYMPH # 1.7 x10^3/uL (1.0-4.8); LYMPH % 26 % (24-48); MEAN CORPUSCULAR HEMOGLOBIN 30 pg (25-35); MEAN CORPUSCULAR HGB CONC 33 g/dL (31-37); MEAN CORPUSCULAR VOLUME 92 fL (79-100); MONO % 16 % (0-9); NEUT # 3.6 x10^3uL (1.8-7.7); NEUT % 55 % (31-73); PLATELET COUNT 231 x10^3/uL (140-400); RED BLOOD COUNT 3.87 x10^6/uL (3.50-5.40); RED CELL DISTRIBUTION WIDTH 17.2 % (11.5-14.5); WHITE BLOOD COUNT 6.6 x10^3/uL (4.0-11.0)
[2020-09-09 07:05] LABS: ALBUMIN 3.3 g/dL (3.4-5.0); CREATININE 1.2 mg/dL (0.6-1.0); GFR 44.3; POTASSIUM 4.1 mmol/L (3.5-5.1); TOTAL BILIRUBIN 0.3 mg/dL (0.2-1.0); TOTAL PROTEIN 6.6 g/dL (6.4-8.2)
[2020-09-09] MEDS: POLYETHYLENE GLYCOL 3350 17 GM PACKET. PO SCH (08:12)
[2020-09-09] MEDS: VALPROATE ACID 250 MG/5 ML ORAL SOLUTION PO SCH ×2 (08:13→20:19)
[2020-09-09] MEDS: DOCUSATE SODIUM 100 MG CAPSULE PO SCH (08:13)
[2020-09-09] MEDS: MAGNESIUM CHLORIDE ER 64 MG TABLET.ER PO SCH (08:14)
[2020-09-09] MEDS: buPROPion XL 300 MG TAB.ER.24H. PO SCH (08:14)
[2020-09-09] MEDS: hydrALAZINE 25 MG TABLET PO SCH ×3 (08:14→20:20)
[2020-09-09] MEDS: HALOPERIDOL 0.5 MG TABLET PO SCH (08:14)
[2020-09-09] MEDS: metFORMIN 500 MG TABLET PO SCH (08:14)
[2020-09-09] MEDS: amLODIPine BESYLATE 10 MG TABLET PO SCH (08:15)
[2020-09-09] MEDS: FERROUS SULFATE 325 MG TABLET. PO SCH (08:15)
[2020-09-09] MEDS: ATENOLOL 50 MG TABLET PO SCH (08:15)
[2020-09-09] MEDS: CALCIUM CARB/VIT D3 500/200 TABLET PO SCH (08:15)
[2020-09-09] MEDS: MULTIVITAMIN with MINERAL TABLET. PO SCH (08:15)
[2020-09-09] MEDS: FUROSEMIDE 40 MG TABLET PO SCH (08:15)
[2020-09-09] MEDS: FLUTICASONE 50MCG/NASAL SPRAY 16GM BOTTLE. NS SCH (08:16)
[2020-09-09] MEDS: POLYVINYL ALCOHOL 1.4% OPHTH SOLUTION 15ML BOTTLE. OU SCH ×2 (08:16→20:25)
[2020-09-09] MEDS: ALBUTEROL SULFATE 8GM INHALER. INH SCH ×2 (08:16→20:24)
[2020-09-09 15:40] VITALS: BP 158/88
[2020-09-09] MEDS: DONEPEZIL HCL 10 MG TABLET PO SCH (20:19)
[2020-09-09] MEDS: traZODone 50 MG TABLET. PO SCH (20:19)
[2020-09-09] MEDS: MONTELUKAST 10 MG TABLET. PO SCH (20:20)
[2020-09-09] MEDS: PANTOPRAZOLE 40 MG TABLET. PO SCH (20:20)
[2020-09-09] MEDS: OXYBUTYNIN CHLORIDE 5 MG TABLET PO SCH (20:20)
--- NOTE | 2020-09-09 20:26 | PN ---
DATE: 09/09/2020 SUBJECTIVE: The patient was seen today, met with the staff, chart reviewed and also covering for Dr. Tee. Staff reports no major behavior problems except refusing most of the medications. Apparently took only Depakote. The patient's affect has improved. The patient is able to participate in some of the activities. OBSERVATION: VITAL SIGNS: Temperature 98.2, blood pressure 154/82, pulse 82, respirations 20, O2 sat 95%. GENERAL: Slept about 3 hours last night. CURRENT MEDICATIONS: The patient's current medications include Haldol 0.5 mg daily, bupropion 300 mg daily, trazodone 50 mg at night, Aricept 10 mg at night, Depakote 1500 mg at night. The patient denies of any side effects. LABORATORY DATA: The patient's lab reviewed. ASSESSMENT: 1. Bipolar disorder, mixed, with psychotic features. 2. Generalized anxiety disorder. 3. Impulse control disorder, unspecified. PLAN: To continue with the treatment. LENGTH OF STAY: 7 days. STEPHANIE LI MD DR: SYLVIE/yvon JOB#: [id number] / [id number]
[2020-09-10] MEDS: LEVOTHYROXINE 125 MCG TABLET PO SCH (05:49)
[2020-09-10 05:57] VITALS: BP 148/72
[2020-09-10] MEDS: POLYETHYLENE GLYCOL 3350 17 GM PACKET. PO SCH (07:56)
[2020-09-10] MEDS: CALCIUM CARB/VIT D3 500/200 TABLET PO SCH (07:58)
[2020-09-10] MEDS: buPROPion XL 300 MG TAB.ER.24H. PO SCH (07:58)
[2020-09-10] MEDS: metFORMIN 500 MG TABLET PO SCH (07:58)
[2020-09-10] MEDS: ATENOLOL 50 MG TABLET PO SCH (07:58)
[2020-09-10] MEDS: MAGNESIUM CHLORIDE ER 64 MG TABLET.ER PO SCH (07:58)
[2020-09-10] MEDS: hydrALAZINE 25 MG TABLET PO SCH ×3 (07:59→19:45)
[2020-09-10] MEDS: amLODIPine BESYLATE 10 MG TABLET PO SCH (07:59)
[2020-09-10] MEDS: MULTIVITAMIN with MINERAL TABLET. PO SCH (07:59)
[2020-09-10] MEDS: FERROUS SULFATE 325 MG TABLET. PO SCH (07:59)
[2020-09-10] MEDS: FUROSEMIDE 40 MG TABLET PO SCH (07:59)
[2020-09-10] MEDS: DOCUSATE SODIUM 100 MG CAPSULE PO SCH (07:59)
[2020-09-10] MEDS: ALBUTEROL SULFATE 8GM INHALER. INH SCH ×2 (08:00→19:48)
[2020-09-10] MEDS: POLYVINYL ALCOHOL 1.4% OPHTH SOLUTION 15ML BOTTLE. OU SCH ×2 (08:00→19:48)
[2020-09-10] MEDS: FLUTICASONE 50MCG/NASAL SPRAY 16GM BOTTLE. NS SCH (08:00)
[2020-09-10] MEDS: VALPROATE ACID 250 MG/5 ML ORAL SOLUTION PO SCH ×2 (08:00→19:45)
[2020-09-10] MEDS: HALOPERIDOL 0.5 MG TABLET PO SCH (08:01)
--- NOTE | 2020-09-10 11:56 | PN ---
DATE: 09/10/2020 SUBJECTIVE: Staff reports continued behavior problems, staying in bed, irritable, quintero. Still depressed, also having auditory hallucinations, also admits to feeling hopeless. The patient's appetite is fair. OBSERVATION: VITAL SIGNS: Temperature 97.5, blood pressure 148/72, pulse 78, respirations 16, O2 sat 94%. GENERAL: Slept about 8 hours last night. LABORATORY DATA: The patient's lab reviewed. MEDICATIONS: The patient's current medications include Haldol 0.5 mg daily, bupropion 300 mg daily, trazodone 50 mg at night, Aricept 10 mg at night, and Depakote 1500 mg at night. The patient denies of any side effects. ASSESSMENT: 1. Bipolar disorder, mixed, with psychotic features. 2. Generalized anxiety disorder. 3. Impulse control disorder, unspecified. PLAN: To continue with the treatment. LENGTH OF STAY: 7 days. STEPHANIE LI MD DR: SYLVIE/yvon JOB#: [id number] / [id number]
[2020-09-10 15:52] VITALS: BP 151/81
[2020-09-10] MEDS: DONEPEZIL HCL 10 MG TABLET PO SCH (19:45)
[2020-09-10] MEDS: traZODone 50 MG TABLET. PO SCH (19:46)
[2020-09-10] MEDS: PANTOPRAZOLE 40 MG TABLET. PO SCH (19:46)
[2020-09-10] MEDS: OXYBUTYNIN CHLORIDE 5 MG TABLET PO SCH (19:46)
[2020-09-10] MEDS: MONTELUKAST 10 MG TABLET. PO SCH (19:46)
[2020-09-11 05:54] VITALS: BP 157/76
[2020-09-11] MEDS: LEVOTHYROXINE 125 MCG TABLET PO SCH (06:07)
[2020-09-11] MEDS: FERROUS SULFATE 325 MG TABLET. PO SCH (08:24)
[2020-09-11] MEDS: CALCIUM CARB/VIT D3 500/200 TABLET PO SCH (08:24)
[2020-09-11] MEDS: DOCUSATE SODIUM 100 MG CAPSULE PO SCH (08:24)
[2020-09-11] MEDS: FUROSEMIDE 40 MG TABLET PO SCH (08:24)
[2020-09-11] MEDS: buPROPion XL 300 MG TAB.ER.24H. PO SCH (08:24)
[2020-09-11] MEDS: MULTIVITAMIN with MINERAL TABLET. PO SCH (08:24)
[2020-09-11] MEDS: MAGNESIUM CHLORIDE ER 64 MG TABLET.ER PO SCH (08:24)
[2020-09-11] MEDS: hydrALAZINE 25 MG TABLET PO SCH ×3 (08:24→21:25)
[2020-09-11] MEDS: VALPROATE ACID 250 MG/5 ML ORAL SOLUTION PO SCH ×2 (08:25→21:25)
[2020-09-11] MEDS: ATENOLOL 50 MG TABLET PO SCH (08:25)
[2020-09-11] MEDS: POLYETHYLENE GLYCOL 3350 17 GM PACKET. PO SCH (08:25)
[2020-09-11] MEDS: HALOPERIDOL 0.5 MG TABLET PO SCH (08:25)
[2020-09-11] MEDS: amLODIPine BESYLATE 10 MG TABLET PO SCH (08:25)
[2020-09-11] MEDS: metFORMIN 500 MG TABLET PO SCH (08:25)
[2020-09-11] MEDS: FLUTICASONE 50MCG/NASAL SPRAY 16GM BOTTLE. NS SCH (08:26)
[2020-09-11] MEDS: POLYVINYL ALCOHOL 1.4% OPHTH SOLUTION 15ML BOTTLE. OU SCH ×2 (08:26→21:26)
[2020-09-11] MEDS: ALBUTEROL SULFATE 8GM INHALER. INH SCH ×2 (08:27→21:26)
[2020-09-11 16:02] VITALS: BP 162/83
[2020-09-11] MEDS: MONTELUKAST 10 MG TABLET. PO SCH (21:25)
[2020-09-11] MEDS: traZODone 50 MG TABLET. PO SCH (21:25)
[2020-09-11] MEDS: OXYBUTYNIN CHLORIDE 5 MG TABLET PO SCH (21:26)
[2020-09-11] MEDS: DONEPEZIL HCL 10 MG TABLET PO SCH (21:26)
[2020-09-11] MEDS: PANTOPRAZOLE 40 MG TABLET. PO SCH (21:26)
--- NOTE | 2020-09-11 22:36 | PN ---
DATE: 09/11/2020 SUBJECTIVE: Staff reports continued behavior problems, tend to stay in bed, mostly monosyllabic answers, does not interact with the staff or other residents. The patient denies of feeling depressed. The patient also admits to having auditory hallucinations at times. OBSERVATION: VITAL SIGNS: Temperature 98.2, blood pressure 157/76, pulse 64, respirations 18, O2 sat 93%. GENERAL: Slept about 7 hours last night. The patient's appetite is fair. MEDICATIONS: The patient's current medications include Haldol 0.5 mg daily, bupropion 300 mg daily, trazodone 50 mg at night, Aricept 10 mg at night, and Depakote 1500 mg at night. The patient is not exhibiting any side effects to medications. LABORATORY DATA: The patient's lab reviewed. ASSESSMENT: 1. Bipolar disorder, mixed, with psychotic features. 2. Generalized anxiety disorder. 3. Impulse control disorder, unspecified. PLAN: To continue with treatment. LENGTH OF STAY: 7 days. STEPHANIE LI MD DR: SYLVIE/yvon JOB#: [id number] / [id number]
[2020-09-12] MEDS: LEVOTHYROXINE 125 MCG TABLET PO SCH (05:40)
[2020-09-12 05:41] VITALS: BP 162/80
[2020-09-12] MEDS: buPROPion XL 300 MG TAB.ER.24H. PO SCH (08:03)
[2020-09-12] MEDS: VALPROATE ACID 250 MG/5 ML ORAL SOLUTION PO SCH ×2 (08:03→20:10)
[2020-09-12] MEDS: ATENOLOL 50 MG TABLET PO SCH (08:04)
[2020-09-12] MEDS: MULTIVITAMIN with MINERAL TABLET. PO SCH (08:04)
[2020-09-12] MEDS: POLYETHYLENE GLYCOL 3350 17 GM PACKET. PO SCH (08:04)
[2020-09-12] MEDS: DOCUSATE SODIUM 100 MG CAPSULE PO SCH (08:04)
[2020-09-12] MEDS: metFORMIN 500 MG TABLET PO SCH (08:04)
[2020-09-12] MEDS: FERROUS SULFATE 325 MG TABLET. PO SCH (08:05)
[2020-09-12] MEDS: CALCIUM CARB/VIT D3 500/200 TABLET PO SCH (08:05)
[2020-09-12] MEDS: FUROSEMIDE 40 MG TABLET PO SCH (08:05)
[2020-09-12] MEDS: MAGNESIUM CHLORIDE ER 64 MG TABLET.ER PO SCH (08:05)
[2020-09-12] MEDS: hydrALAZINE 25 MG TABLET PO SCH ×3 (08:05→20:09)
[2020-09-12] MEDS: POLYVINYL ALCOHOL 1.4% OPHTH SOLUTION 15ML BOTTLE. OU SCH ×2 (08:06→20:12)
[2020-09-12] MEDS: amLODIPine BESYLATE 10 MG TABLET PO SCH (08:06)
[2020-09-12] MEDS: ALBUTEROL SULFATE 8GM INHALER. INH SCH ×2 (08:06→20:12)
[2020-09-12] MEDS: HALOPERIDOL 0.5 MG TABLET PO SCH (08:06)
[2020-09-12] MEDS: FLUTICASONE 50MCG/NASAL SPRAY 16GM BOTTLE. NS SCH (08:07)
--- NOTE | 2020-09-12 11:09 | TX PLAN ---
Interdisciplinary Tx Plan Admission Information Sep 02, 2020 at 14:35 Legal Status (on Admission): Voluntary DPOA/Guardian Name: Comfort Bryan Contact or Other Contact Name: [facility] Other Contact Verified Code Status: DNR Allergies: Coded Allergies: adhesive (Verified Allergy, Intermediate, 02/22/20) fluoxetine (Verified Allergy, Intermediate, 02/22/20) Penicillins (Verified Allergy, Unknown, 09/03/20) Diagnoses Primary Diagnosis: Bipolar D/O, recent episode manic Reasons for Admission: Sig. Change Sleep, Poor impulse control, Other Problem in Patient's Words: Assuming natural progression within pt dx. Additional Admission Comments: According to the intake, pt is refusing medications, refusing vitals, suspicious of staff, pointed knife at staff, who found knife under pt pillow, impulsive, insomnia Problems Active Problems: resistive to medications refusal of vitals impulsive hard to redirect Inactive Problems: no insomnia noted Pt Strengths/Limitations Ability for [place]: Poor Cognitive Functioning/Ability: Fair Communication Skills/Ability: Poor Financial Resources: Fair Insight/Judgement: Poor Intellectual Ability: Poor Physical Health: Poor Social Skills: Poor Stability in Family: Fair Stability in School/Work: Poor Verbal Skills: Fair Discharge Criteria Discharge Criteria: Adequate arrangements @DC, Improved behavior, Improved mood/thought Preliminary Discharge Plan Preliminary DC Plan: Current Living Arrange. Special Precautions Fall Risk: Low Initial D/C Plan Pt to return to [facility] Identified Discharge Needs: Referrals for psychiatric services Currently Utilized Resources Currently Utilized Resources/P: Primary Care Physician Identified Problems/Hx/Goals Objectives/Short-Term Goals Short Term Goals: Dec. Aggression, Dec. Outbursts, Medication Stabilization, Monitor Med Effects, Promote Coping Skill Short Term Goals in Patient's: na Interventions/Frequency Staff Interventions/Frequency&: Psychiatrist to assess pt at least 3x per week for medication management. Social Work to assess pt at least 2x per week to identify barriers to care and completion of final discharge plans. Nursing to assess medication effects, behavior modification and completion of 15 minute checks. Encourage participation in group activities (if applicable) or 1:1 engagement based off activity dept goals History Vocational History: Pt refused to answer questions at this time. Education: Pt refused to answer questions at this time Community Follow-up Primary Care physician Community Provider/Family Inpu: NA Treatment Plan Explained Patient/Timers Inspector had this treatment plan explained to him/her as indicated by the signature below and has been given the opportunity to ask questions and make suggestions: Date: Patient/Timers Inspector Signature: Patient/Timers Inspector Decline: No (Pt dtr intermittently involved in pt care.) Status Update Update This is pt second Interdisciplinary Treatment Team. Pt first team was held last 09/05. As of today 09/12, pt is eating roughly 70% of meals and sleeping 6.5 hours on average. Pt will not hold any conversations with staff or the psychiatrist during assessments. Pt appears to be a little attention seeking, impulsive and somewhat game playing with staff. Pt is resistive to taking medications as she has been trying to hide pills on her meal trays, but stating she took them. Pt is picking through her medications and takes almost 30 minutes to get through morning med pass. Pt has also been what appears to intentionally urinate in her bed; in which staff devised a behavior plan that does not allow her to lay in her room all day. Pt then started picking random rooms and was caught urinating in other's beds. Pt is currently prescribed Wellbutrin XL 300mg daily, Aricept 10mg daily, Depakene 750mg BID and Trazodone 50mg q HS. Pt will plan to return to [facility] once stable. CHARLES POPE Sep 12, 2020 11:09
[2020-09-12 16:28] VITALS: BP 125/61
[2020-09-12] MEDS: DONEPEZIL HCL 10 MG TABLET PO SCH (20:09)
[2020-09-12] MEDS: traZODone 50 MG TABLET. PO SCH (20:09)
[2020-09-12] MEDS: OXYBUTYNIN CHLORIDE 5 MG TABLET PO SCH (20:09)
[2020-09-12] MEDS: PANTOPRAZOLE 40 MG TABLET. PO SCH (20:09)
[2020-09-12] MEDS: MONTELUKAST 10 MG TABLET. PO SCH (20:10)
--- NOTE | 2020-09-12 20:50 | PN ---
DATE: 09/12/2020 SUBJECTIVE: The patient was seen today also participated in the treatment review conference. Staff reports the patient continues to isolate herself, attention seeking, hiding her medications and also having urinary incontinence and demanding. OBSERVATION: VITAL SIGNS: Temperature 98.5, blood pressure 162/80, pulse 64, respirations 18, O2 sat 97%. GENERAL: Slept about 6 hours last night. Her appetite improved. MEDICATIONS: The patient's current medications include Haldol 0.5 mg daily, bupropion 300 mg daily, trazodone 50 mg at night, Aricept 10 mg at night, and Depakote 1500 mg at night. She is not exhibiting any side effects to medications. LABORATORY DATA: Reviewed. ASSESSMENT: 1. Bipolar disorder, mixed, with psychotic features. 2. Generalized anxiety disorder. 3. Impulse control disorder, unspecified. PLAN: To continue with the treatment. LENGTH OF STAY: 4-5 days. STEPHANIE LI MD DR: SYLVIE/yvon JOB#: [id number] / [id number]
[2020-09-13] MEDS: LEVOTHYROXINE 125 MCG TABLET PO SCH (05:35)
[2020-09-13 06:11] VITALS: BP 137/94
[2020-09-13 06:14] VITALS: BP 137/94
[2020-09-13] MEDS: FLUTICASONE 50MCG/NASAL SPRAY 16GM BOTTLE. NS SCH (08:06)
[2020-09-13] MEDS: POLYVINYL ALCOHOL 1.4% OPHTH SOLUTION 15ML BOTTLE. OU SCH ×2 (08:06→20:16)
[2020-09-13] MEDS: MAGNESIUM CHLORIDE ER 64 MG TABLET.ER PO SCH (08:07)
[2020-09-13] MEDS: HALOPERIDOL 0.5 MG TABLET PO SCH (08:07)
[2020-09-13] MEDS: VALPROATE ACID 250 MG/5 ML ORAL SOLUTION PO SCH ×2 (08:07→20:15)
[2020-09-13] MEDS: POLYETHYLENE GLYCOL 3350 17 GM PACKET. PO SCH (08:07)
[2020-09-13] MEDS: DOCUSATE SODIUM 100 MG CAPSULE PO SCH (08:08)
[2020-09-13] MEDS: FUROSEMIDE 40 MG TABLET PO SCH (08:08)
[2020-09-13] MEDS: FERROUS SULFATE 325 MG TABLET. PO SCH (08:08)
[2020-09-13] MEDS: amLODIPine BESYLATE 10 MG TABLET PO SCH (08:08)
[2020-09-13] MEDS: hydrALAZINE 25 MG TABLET PO SCH ×3 (08:09→20:14)
[2020-09-13] MEDS: buPROPion XL 300 MG TAB.ER.24H. PO SCH (08:09)
[2020-09-13] MEDS: metFORMIN 500 MG TABLET PO SCH (08:09)
[2020-09-13] MEDS: MULTIVITAMIN with MINERAL TABLET. PO SCH (08:09)
[2020-09-13] MEDS: ATENOLOL 50 MG TABLET PO SCH (08:09)
[2020-09-13] MEDS: CALCIUM CARB/VIT D3 500/200 TABLET PO SCH (08:09)
[2020-09-13] MEDS: ALBUTEROL SULFATE 8GM INHALER. INH SCH ×2 (08:10→20:16)
[2020-09-13 16:10] VITALS: BP 162/84
[2020-09-13] MEDS: DONEPEZIL HCL 10 MG TABLET PO SCH (20:14)
[2020-09-13] MEDS: traZODone 50 MG TABLET. PO SCH (20:14)
[2020-09-13] MEDS: PANTOPRAZOLE 40 MG TABLET. PO SCH (20:14)
[2020-09-13] MEDS: OXYBUTYNIN CHLORIDE 5 MG TABLET PO SCH (20:15)
[2020-09-13] MEDS: MONTELUKAST 10 MG TABLET. PO SCH (20:15)
--- NOTE | 2020-09-13 22:22 | PN ---
DATE: 09/13/2020 SUBJECTIVE: The patient was seen today, met with the staff, chart reviewed. The patient continues to have problems including refusing her meds, very selective what she wants to take. The patient has not presented with any other major behavior problems. OBSERVATION: VITAL SIGNS: Temperature 97.8, blood pressure 137/94, pulse 53, respirations 18, O2 sat 98%. Slept about 6 hours last night. Appetite fair. MEDICATIONS: The patient's current medications include Haldol 0.5 mg daily, bupropion 300 mg daily, trazodone 50 mg at night, Aricept 10 mg at night, and Depakote 1500 mg at night. The patient is not having any side effects. LABORATORY DATA: Reviewed. ASSESSMENT: 1. Bipolar disorder, mixed, with psychotic features. 2. Generalized anxiety disorder. 3. Impulse control disorder, unspecified. PLAN: To continue with the treatment. LENGTH OF STAY: 4-5 days. STEPHANIE LI MD DR: SYLVIE/yvon JOB#: [id number] / [id number]
[2020-09-14] MEDS: LEVOTHYROXINE 125 MCG TABLET PO SCH (05:09)
[2020-09-14 06:32] VITALS: BP 174/78
[2020-09-14] MEDS: HALOPERIDOL 0.5 MG TABLET PO SCH (08:27)
[2020-09-14] MEDS: MULTIVITAMIN with MINERAL TABLET. PO SCH (08:27)
[2020-09-14] MEDS: DOCUSATE SODIUM 100 MG CAPSULE PO SCH (08:27)
[2020-09-14] MEDS: buPROPion XL 300 MG TAB.ER.24H. PO SCH (08:27)
[2020-09-14] MEDS: ATENOLOL 50 MG TABLET PO SCH (08:27)
[2020-09-14] MEDS: FUROSEMIDE 40 MG TABLET PO SCH (08:28)
[2020-09-14] MEDS: hydrALAZINE 25 MG TABLET PO SCH ×3 (08:28→20:10)
[2020-09-14] MEDS: amLODIPine BESYLATE 10 MG TABLET PO SCH (08:29)
[2020-09-14] MEDS: metFORMIN 500 MG TABLET PO SCH (08:29)
[2020-09-14] MEDS: POLYETHYLENE GLYCOL 3350 17 GM PACKET. PO SCH (08:29)
[2020-09-14] MEDS: VALPROATE ACID 250 MG/5 ML ORAL SOLUTION PO SCH ×2 (08:30→20:10)
[2020-09-14] MEDS: FLUTICASONE 50MCG/NASAL SPRAY 16GM BOTTLE. NS SCH (08:31)
[2020-09-14] MEDS: FERROUS SULFATE 325 MG TABLET. PO SCH (08:32)
[2020-09-14] MEDS: MAGNESIUM CHLORIDE ER 64 MG TABLET.ER PO SCH (08:32)
[2020-09-14] MEDS: POLYVINYL ALCOHOL 1.4% OPHTH SOLUTION 15ML BOTTLE. OU SCH ×2 (08:32→20:10)
[2020-09-14] MEDS: CALCIUM CARB/VIT D3 500/200 TABLET PO SCH (08:35)
[2020-09-14] MEDS: ALBUTEROL SULFATE 8GM INHALER. INH SCH ×2 (08:37→20:10)
[2020-09-14 15:32] VITALS: BP 129/75
[2020-09-14] MEDS: PANTOPRAZOLE 40 MG TABLET. PO SCH (20:09)
[2020-09-14] MEDS: traZODone 50 MG TABLET. PO SCH (20:09)
[2020-09-14] MEDS: MONTELUKAST 10 MG TABLET. PO SCH (20:09)
[2020-09-14] MEDS: DONEPEZIL HCL 10 MG TABLET PO SCH (20:09)
[2020-09-14] MEDS: OXYBUTYNIN CHLORIDE 5 MG TABLET PO SCH (20:10)
[2020-09-15] MEDS: LEVOTHYROXINE 125 MCG TABLET PO SCH (05:32)
[2020-09-15 06:24] VITALS: BP 109/63
[2020-09-15] MEDS: hydrALAZINE 25 MG TABLET PO SCH ×3 (07:23→19:59)
[2020-09-15] MEDS: MAGNESIUM CHLORIDE ER 64 MG TABLET.ER PO SCH (07:23)
[2020-09-15] MEDS: ATENOLOL 50 MG TABLET PO SCH (07:23)
[2020-09-15] MEDS: metFORMIN 500 MG TABLET PO SCH (07:23)
[2020-09-15] MEDS: buPROPion XL 300 MG TAB.ER.24H. PO SCH (07:23)
[2020-09-15] MEDS: CALCIUM CARB/VIT D3 500/200 TABLET PO SCH (07:24)
[2020-09-15] MEDS: amLODIPine BESYLATE 10 MG TABLET PO SCH (07:24)
[2020-09-15] MEDS: FERROUS SULFATE 325 MG TABLET. PO SCH (07:24)
[2020-09-15] MEDS: DOCUSATE SODIUM 100 MG CAPSULE PO SCH (07:24)
[2020-09-15] MEDS: HALOPERIDOL 0.5 MG TABLET PO SCH (07:24)
[2020-09-15] MEDS: POLYETHYLENE GLYCOL 3350 17 GM PACKET. PO SCH (07:24)
[2020-09-15] MEDS: MULTIVITAMIN with MINERAL TABLET. PO SCH (07:25)
[2020-09-15] MEDS: FUROSEMIDE 40 MG TABLET PO SCH (07:25)
[2020-09-15] MEDS: VALPROATE ACID 250 MG/5 ML ORAL SOLUTION PO SCH ×2 (07:25→20:00)
[2020-09-15] MEDS: FLUTICASONE 50MCG/NASAL SPRAY 16GM BOTTLE. NS SCH (07:51)
[2020-09-15] MEDS: ALBUTEROL SULFATE 8GM INHALER. INH SCH ×2 (08:56→20:02)
[2020-09-15] MEDS: POLYVINYL ALCOHOL 1.4% OPHTH SOLUTION 15ML BOTTLE. OU SCH ×2 (08:56→20:02)
[2020-09-15 15:46] VITALS: BP 120/61
[2020-09-15] MEDS: OXYBUTYNIN CHLORIDE 5 MG TABLET PO SCH (19:59)
[2020-09-15] MEDS: traZODone 50 MG TABLET. PO SCH (19:59)
[2020-09-15] MEDS: MONTELUKAST 10 MG TABLET. PO SCH (20:00)
[2020-09-15] MEDS: PANTOPRAZOLE 40 MG TABLET. PO SCH (20:00)
[2020-09-15] MEDS: DONEPEZIL HCL 10 MG TABLET PO SCH (20:00)
--- NOTE | 2020-09-15 21:52 | PDOC ---
Exam Note: [facility] Note: Late entry for 09/14/2020. Please also refer to the separate dictated note~for this date of service dictated separately.~Patient seen individually. Discussed the patient with Nursing staff reviewed the chart.~Reviewed interim history and current functioning. Reviewed vital signs,~Labs/ Radiology~and current medic ations noted below. Continue current treatment with the changes noted in the dictated addendum note Assessment: Vital Signs/I&O: Vital Signs Date Time Temp Pulse Resp B/P (MAP) Pulse Ox O2 Delivery O2 Flow Rate FiO2 09/15/20 19:59 72 120/61 09/15/20 15:46 98.6 20 98 09/15/20 06:24 Room Air I & O 09/14/20 09/14/20 09/15/20 15:00 23:00 07:00 Intake Total 960 ml 360 ml Balance 960 ml 360 ml Labs: Laboratory Tests Test 09/15/20 07:54 Glucose (Fingerstick) 111 mg/dL Current Medications Medications (Trade) Dose Ordered Sig/Annika Route PRN Reason Start Time Stop Time Status Last Admin Dose Admin Acetaminophen (Tylenol) 650 mg PRN Q6HRS PRN PO MILD PAIN / TEMP > 100.3'F 09/02/20 15:00 09/02/20 16:17 DC Multi-Ingredient Ointment (Analgesic [place]) 1 hui PRN QID PRN TP MUSCLE PAIN 09/02/20 15:00 Al Hydroxide/Mg Hydroxide (Mylanta Plus Xs) 15 ml PRN AFTMEALHC PRN PO DYSPEPSIA 09/02/20 15:00 09/02/20 16:28 DC Magnesium Hydroxide (Milk Of Magnesia) 2,400 mg PRN QHS PRN PO CONSTIPATION 09/02/20 15:00 Acetaminophen (Tylenol) 650 mg PRN Q4HRS PRN PO MILD PAIN / TEMP > 100.3'F 09/02/20 16:15 Albuterol Sulfate (Ventolin Hfa Inhaler) 2 puff BID INH 09/02/20 21:00 09/15/20 20:02 Amlodipine Besylate (Norvasc) 10 mg DAILY PO 09/03/20 09:00 09/15/20 07:24 Atenolol (Tenormin) 50 mg DAILY PO 09/03/20 09:00 09/15/20 07:23 Bupropion HCl (Wellbutrin Xl) 300 mg DAILY PO 09/03/20 09:00 09/15/20 07:23 Divalproex Sodium (Depakote Er) 1,500 mg QHS PO 09/02/20 21:00 09/08/20 20:12 DC 09/07/20 19:41 Docusate Sodium (Colace) 100 mg DAILY PO 09/03/20 09:00 09/15/20 07:24 Donepezil HCl (Aricept) 10 mg HS PO 09/02/20 21:00 09/15/20 20:00 Ferrous Sulfate (Feosol) 325 mg DAILY PO 09/03/20 09:00 09/15/20 07:24 Furosemide (Lasix) 40 mg DAILY PO 09/03/20 09:00 09/15/20 07:25 Guaifenesin (Mucinex Er) 1,200 mg BID PO 09/02/20 21:00 09/15/20 20:00 Hydralazine HCl (Apresoline) 25 mg TID PO 09/02/20 21:00 09/15/20 19:59 Levothyroxine Sodium (Synthroid) 125 mcg DAILY06 PO 09/03/20 06:00 09/15/20 05:32 Al Hydroxide/Mg Hydroxide (Mylanta Plus Xs) 30 ml PRN Q2HRS PRN PO DYSPEPSIA 09/02/20 16:15 Multi-Ingredient Ointment (Analgesic [place]) 1 hui PRN QID PRN TP MUSCLE PAIN 09/02/20 16:15 09/02/20 16:29 DC Montelukast Sodium (Singulair) 10 mg HS PO 09/02/20 21:00 09/15/20 20:00 Olanzapine (ZyPREXA ZYDIS) 2.5 mg PRN Q2HRS PRN PO psychosis/agitation 09/02/20 16:15 09/02/20 16:20 DC Pantoprazole Sodium (Protonix) 40 mg HS PO 09/02/20 21:00 09/15/20 20:00 Polyethylene Glycol (miraLAX) 17 gm DAILY PO 09/03/20 09:00 09/15/20 07:24 Artificial Tears (Artificial Tears) 2 drop BID OU 09/02/20 21:00 09/15/20 20:02 Risperidone (RisperDAL) 0.25 mg QHS PO 09/02/20 21:00 09/07/20 16:47 DC 09/06/20 20:54 Risperidone (RisperDAL) 1 mg QHS PO 09/02/20 21:00 09/07/20 16:47 DC 09/06/20 20:55 Trazodone HCl (Desyrel) 50 mg HS PO 09/02/20 21:00 09/15/20 19:59 Trazodone HCl (Desyrel) 50 mg PRN QHS PRN PO insomnia 09/02/20 16:15 Calcium/Vitamin D (Oscal D 500mg/ 200uts) 1 tab DAILY PO 09/03/20 09:00 09/15/20 07:24 Fluticasone Propionate (Flonase) 2 spray DAILY NS 09/03/20 09:00 09/15/20 07:51 Magnesium Chloride (Mag Delay) 64 mg DAILY PO 09/03/20 09:00 09/15/20 07:23 Non-Formulary Medication (Magnesium Hydroxide (Milk Of Magnesia)) 2,400 mg PRN QHS PRN PO CONSTIPATION 09/02/20 16:15 09/02/20 16:32 DC Metformin HCl (Glucophage) 1,000 mg DAILYWBKFT PO 09/03/20 08:00 09/15/20 07:23 Multivitamins/ Calcium (Thera-M Plus) 1 tab DAILY PO 09/03/20 09:00 09/15/20 07:25 Oxybutynin Chloride (Ditropan) 5 mg QHS PO 09/02/20 21:00 09/15/20 19:59 Guaifenesin (Robitussin) 100 mg PRN Q2HRS PRN PO COUGH 09/02/20 16:30 Hydrocortisone Acetate (Anucort-Hc) 25 mg PRN DAILY PRN RC RECTAL PAIN 09/02/20 16:30 Haloperidol (Haldol) 0.5 mg DAILY PO 09/08/20 09:00 09/15/20 07:24 Valproic Acid (Depakene) 750 mg BID PO 09/08/20 21:00 09/15/20 20:00 Laboratory Tests Test 09/15/20 07:54 Glucose (Fingerstick) 111 mg/dL (70-99) H Current Medications: I have reviewed the current psychotropics carefully including drug interactions. Risk benefit ratio favors no change other than as noted in my dictated progress note. Diagnosis: Problems: (1) Impulse control disorder, unspecified (2) Anxiety disorder, unspecified (3) Bipolar disorder, curr episode mixed, severe, with psychotic features JABARI ARBOLEDA MD Sep 15, 2020 21:52
--- NOTE | 2020-09-15 21:53 | PDOC ---
Exam Note: [facility] Note: Please also refer to the separate dictated note~for this date of service dictated separately.~Patient seen individually. Discussed the patient with Nursing staff reviewed the chart.~Reviewed interim history and current functioning. Reviewed vital signs,~Labs/ Radiology~and current medications noted below. Continue current treatment with the changes noted in the dictated addendum note Assessment: Vital Signs/I&O: Vital Signs Date Time Temp Pulse Resp B/P (MAP) Pulse Ox O2 Delivery O2 Flow Rate FiO2 09/15/20 19:59 72 120/61 09/15/20 15:46 98.6 20 98 09/15/20 06:24 Room Air I & O 09/14/20 09/14/20 09/15/20 15:00 23:00 07:00 Intake Total 960 ml 360 ml Balance 960 ml 360 ml Labs: Laboratory Tests Test 09/15/20 07:54 Glucose (Fingerstick) 111 mg/dL (70-99) H Current Medications: Meds: Laboratory Tests Test 09/15/20 07:54 Glucose (Fingerstick) 111 mg/dL Current Medications Medications (Trade) Dose Ordered Sig/Annika Route PRN Reason Start Time Stop Time Status Last Admin Dose Admin Acetaminophen (Tylenol) 650 mg PRN Q6HRS PRN PO MILD PAIN / TEMP > 100.3'F 09/02/20 15:00 09/02/20 16:17 DC Multi-Ingredient Ointment (Analgesic [place]) 1 hui PRN QID PRN TP MUSCLE PAIN 09/02/20 15:00 Al Hydroxide/Mg Hydroxide (Mylanta Plus Xs) 15 ml PRN AFTMEALHC PRN PO DYSPEPSIA 09/02/20 15:00 09/02/20 16:28 DC Magnesium Hydroxide (Milk Of Magnesia) 2,400 mg PRN QHS PRN PO CONSTIPATION 09/02/20 15:00 Acetaminophen (Tylenol) 650 mg PRN Q4HRS PRN PO MILD PAIN / TEMP > 100.3'F 09/02/20 16:15 Albuterol Sulfate (Ventolin Hfa Inhaler) 2 puff BID INH 09/02/20 21:00 09/15/20 20:02 Amlodipine Besylate (Norvasc) 10 mg DAILY PO 09/03/20 09:00 09/15/20 07:24 Atenolol (Tenormin) 50 mg DAILY PO 09/03/20 09:00 09/15/20 07:23 Bupropion HCl (Wellbutrin Xl) 300 mg DAILY PO 09/03/20 09:00 09/15/20 07:23 Divalproex Sodium (Depakote Er) 1,500 mg QHS PO 09/02/20 21:00 09/08/20 20:12 DC 09/07/20 19:41 Docusate Sodium (Colace) 100 mg DAILY PO 09/03/20 09:00 09/15/20 07:24 Donepezil HCl (Aricept) 10 mg HS PO 09/02/20 21:00 09/15/20 20:00 Ferrous Sulfate (Feosol) 325 mg DAILY PO 09/03/20 09:00 09/15/20 07:24 Furosemide (Lasix) 40 mg DAILY PO 09/03/20 09:00 09/15/20 07:25 Guaifenesin (Mucinex Er) 1,200 mg BID PO 09/02/20 21:00 09/15/20 20:00 Hydralazine HCl (Apresoline) 25 mg TID PO 09/02/20 21:00 09/15/20 19:59 Levothyroxine Sodium (Synthroid) 125 mcg DAILY06 PO 09/03/20 06:00 09/15/20 05:32 Al Hydroxide/Mg Hydroxide (Mylanta Plus Xs) 30 ml PRN Q2HRS PRN PO DYSPEPSIA 09/02/20 16:15 Multi-Ingredient Ointment (Analgesic [place]) 1 hui PRN QID PRN TP MUSCLE PAIN 09/02/20 16:15 09/02/20 16:29 DC Montelukast Sodium (Singulair) 10 mg HS PO 09/02/20 21:00 09/15/20 20:00 Olanzapine (ZyPREXA ZYDIS) 2.5 mg PRN Q2HRS PRN PO psychosis/agitation 09/02/20 16:15 09/02/20 16:20 DC Pantoprazole Sodium (Protonix) 40 mg HS PO 09/02/20 21:00 09/15/20 20:00 Polyethylene Glycol (miraLAX) 17 gm DAILY PO 09/03/20 09:00 09/15/20 07:24 Artificial Tears (Artificial Tears) 2 drop BID OU 09/02/20 21:00 09/15/20 20:02 Risperidone (RisperDAL) 0.25 mg QHS PO 09/02/20 21:00 09/07/20 16:47 DC 09/06/20 20:54 Risperidone (RisperDAL) 1 mg QHS PO 09/02/20 21:00 09/07/20 16:47 DC 09/06/20 20:55 Trazodone HCl (Desyrel) 50 mg HS PO 09/02/20 21:00 09/15/20 19:59 Trazodone HCl (Desyrel) 50 mg PRN QHS PRN PO insomnia 09/02/20 16:15 Calcium/Vitamin D (Oscal D 500mg/ 200uts) 1 tab DAILY PO 09/03/20 09:00 09/15/20 07:24 Fluticasone Propionate (Flonase) 2 spray DAILY NS 09/03/20 09:00 09/15/20 07:51 Magnesium Chloride (Mag Delay) 64 mg DAILY PO 09/03/20 09:00 09/15/20 07:23 Non-Formulary Medication (Magnesium Hydroxide (Milk Of Magnesia)) 2,400 mg PRN QHS PRN PO CONSTIPATION 09/02/20 16:15 09/02/20 16:32 DC Metformin HCl (Glucophage) 1,000 mg DAILYWBKFT PO 09/03/20 08:00 09/15/20 07:23 Multivitamins/ Calcium (Thera-M Plus) 1 tab DAILY PO 09/03/20 09:00 09/15/20 07:25 Oxybutynin Chloride (Ditropan) 5 mg QHS PO 09/02/20 21:00 09/15/20 19:59 Guaifenesin (Robitussin) 100 mg PRN Q2HRS PRN PO COUGH 09/02/20 16:30 Hydrocortisone Acetate (Anucort-Hc) 25 mg PRN DAILY PRN RC RECTAL PAIN 09/02/20 16:30 Haloperidol (Haldol) 0.5 mg DAILY PO 09/08/20 09:00 09/15/20 07:24 Valproic Acid (Depakene) 750 mg BID PO 09/08/20 21:00 09/15/20 20:00 I have reviewed the current psychotropics carefully including drug interactions. Risk benefit ratio favors no change other than as noted in my dictated progress note. Diagnosis: Problems: (1) Impulse control disorder, unspecified (2) Anxiety disorder, unspecified (3) Bipolar disorder, curr episode mixed, severe, with psychotic features JABARI ARBOLEDA MD Sep 15, 2020 21:53
[2020-09-16] MEDS: LEVOTHYROXINE 125 MCG TABLET PO SCH (05:33)
[2020-09-16 06:07] VITALS: BP 177/84
--- NOTE | 2020-09-16 07:06 | PDOC ---
Exam Note: [facility] Note: This note is a late entry for 09/14/2020 covers elements not covered in my initial note. Subjective: Dr. Gómez had covered for me from 31 August till September, and I assumed care of the patients from 14 September. I have reviewed information and interim progress notes at some length with Dr. Gómez. The patient was seen individually in the evening of 09/14/2020 with Brenda BOND, discussed and reviewed the chart. The patient just slept 6-1/4 hours previous night. She has been refusing medications off and on. She remains irritable, somewhat paranoid. Review of Systems: Ambulation impaired with walker. No CV, , pulmonary, eye, ENT system symptoms on review. Mental Status Exam: The patient is oriented to herself and situation. Speech has some latency, coherent, low in volume. Abstraction is fair. Computation impaired. Language function is intact. Attention span is short. Mood and affect is somewhat withdrawn, remains paranoid. Laboratory Data: Reviewed. Impression: Bipolar disorder mixed with psychotic features in partial remission. Anxiety disorder unspecified. Impulse control disorder unspecified. Plan: I have carefully reviewed the current psychotropics and drug interactions. Risk-benefit ratio favors no further change other than noted below. Dr. Gómez has started the patient on Haldol 5 mg daily. We will increase to 7.5 mg daily. Maintain Wellbutrin XL 300 mg a day, Aricept 10 mg h.s., Depakene 750 mg b.i.d. Level is therapeutic at 79, trazodone 50 mg h.s. and 50 mg h.s. p.r.n. insomnia. Adjust further as clinically indicated. Assessment: Vital Signs/I&O: Vital Signs Date Time Temp Pulse Resp B/P (MAP) Pulse Ox O2 Delivery O2 Flow Rate FiO2 09/16/20 06:07 97.4 64 20 177/84 (115) 96 09/15/20 06:24 Room Air I & O 09/15/20 09/15/20 09/16/20 15:00 23:00 07:00 Intake Total 650 ml 445 ml Balance 650 ml 445 ml Labs: Laboratory Tests Test 09/15/20 07:54 Glucose (Fingerstick) 111 mg/dL (70-99) H Current Medications: Meds: Laboratory Tests Test 09/15/20 07:54 Glucose (Fingerstick) 111 mg/dL Current Medications Medications (Trade) Dose Ordered Sig/Annika Route PRN Reason Start Time Stop Time Status Last Admin Dose Admin Acetaminophen (Tylenol) 650 mg PRN Q6HRS PRN PO MILD PAIN / TEMP > 100.3'F 09/02/20 15:00 09/02/20 16:17 DC Multi-Ingredient Ointment (Analgesic [place]) 1 hui PRN QID PRN TP MUSCLE PAIN 09/02/20 15:00 Al Hydroxide/Mg Hydroxide (Mylanta Plus Xs) 15 ml PRN AFTMEALHC PRN PO DYSPEPSIA 09/02/20 15:00 09/02/20 16:28 DC Magnesium Hydroxide (Milk Of Magnesia) 2,400 mg PRN QHS PRN PO CONSTIPATION 09/02/20 15:00 Acetaminophen (Tylenol) 650 mg PRN Q4HRS PRN PO MILD PAIN / TEMP > 100.3'F 09/02/20 16:15 Albuterol Sulfate (Ventolin Hfa Inhaler) 2 puff BID INH 09/02/20 21:00 09/15/20 20:02 Amlodipine Besylate (Norvasc) 10 mg DAILY PO 09/03/20 09:00 09/15/20 07:24 Atenolol (Tenormin) 50 mg DAILY PO 09/03/20 09:00 09/15/20 07:23 Bupropion HCl (Wellbutrin Xl) 300 mg DAILY PO 09/03/20 09:00 09/15/20 07:23 Divalproex Sodium (Depakote Er) 1,500 mg QHS PO 09/02/20 21:00 09/08/20 20:12 DC 09/07/20 19:41 Docusate Sodium (Colace) 100 mg DAILY PO 09/03/20 09:00 09/15/20 07:24 Donepezil HCl (Aricept) 10 mg HS PO 09/02/20 21:00 09/15/20 20:00 Ferrous Sulfate (Feosol) 325 mg DAILY PO 09/03/20 09:00 09/15/20 07:24 Furosemide (Lasix) 40 mg DAILY PO 09/03/20 09:00 09/15/20 07:25 Guaifenesin (Mucinex Er) 1,200 mg BID PO 09/02/20 21:00 09/15/20 20:00 Hydralazine HCl (Apresoline) 25 mg TID PO 09/02/20 21:00 09/15/20 19:59 Levothyroxine Sodium (Synthroid) 125 mcg DAILY06 PO 09/03/20 06:00 09/16/20 05:33 Al Hydroxide/Mg Hydroxide (Mylanta Plus Xs) 30 ml PRN Q2HRS PRN PO DYSPEPSIA 09/02/20 16:15 Multi-Ingredient Ointment (Analgesic [place]) 1 hui PRN QID PRN TP MUSCLE PAIN 09/02/20 16:15 09/02/20 16:29 DC Montelukast Sodium (Singulair) 10 mg HS PO 09/02/20 21:00 09/15/20 20:00 Olanzapine (ZyPREXA ZYDIS) 2.5 mg PRN Q2HRS PRN PO psychosis/agitation 09/02/20 16:15 09/02/20 16:20 DC Pantoprazole Sodium (Protonix) 40 mg HS PO 09/02/20 21:00 09/15/20 20:00 Polyethylene Glycol (miraLAX) 17 gm DAILY PO 09/03/20 09:00 09/15/20 07:24 Artificial Tears (Artificial Tears) 2 drop BID OU 09/02/20 21:00 09/15/20 20:02 Risperidone (RisperDAL) 0.25 mg QHS PO 09/02/20 21:00 09/07/20 16:47 DC 09/06/20 20:54 Risperidone (RisperDAL) 1 mg QHS PO 09/02/20 21:00 09/07/20 16:47 DC 09/06/20 20:55 Trazodone HCl (Desyrel) 50 mg HS PO 09/02/20 21:00 09/15/20 19:59 Trazodone HCl (Desyrel) 50 mg PRN QHS PRN PO insomnia 09/02/20 16:15 Calcium/Vitamin D (Oscal D 500mg/ 200uts) 1 tab DAILY PO 09/03/20 09:00 09/15/20 07:24 Fluticasone Propionate (Flonase) 2 spray DAILY NS 09/03/20 09:00 09/15/20 07:51 Magnesium Chloride (Mag Delay) 64 mg DAILY PO 09/03/20 09:00 09/15/20 07:23 Non-Formulary Medication (Magnesium Hydroxide (Milk Of Magnesia)) 2,400 mg PRN QHS PRN PO CONSTIPATION 09/02/20 16:15 09/02/20 16:32 DC Metformin HCl (Glucophage) 1,000 mg DAILYWBKFT PO 09/03/20 08:00 09/15/20 07:23 Multivitamins/ Calcium (Thera-M Plus) 1 tab DAILY PO 09/03/20 09:00 09/15/20 07:25 Oxybutynin Chloride (Ditropan) 5 mg QHS PO 09/02/20 21:00 09/15/20 19:59 Guaifenesin (Robitussin) 100 mg PRN Q2HRS PRN PO COUGH 09/02/20 16:30 Hydrocortisone Acetate (Anucort-Hc) 25 mg PRN DAILY PRN RC RECTAL PAIN 09/02/20 16:30 Haloperidol (Haldol) 0.5 mg DAILY PO 09/08/20 09:00 09/15/20 07:24 Valproic Acid (Depakene) 750 mg BID PO 09/08/20 21:00 09/15/20 20:00 I have reviewed the current psychotropics carefully including drug interactions. Risk benefit ratio favors no change other than as noted in my dictated progress note. Diagnosis: Problems: (1) Impulse control disorder, unspecified (2) Anxiety disorder, unspecified (3) Bipolar disorder, curr episode mixed, severe, with psychotic features JABARI ARBOLEDA MD Sep 16, 2020 07:06
--- NOTE | 2020-09-16 07:56 | PDOC ---
Exam Note: [facility] Note: This note is a late entry for 09/15/2020 covers elements not covered in my initial note. Subjective: The patient was seen individually in the evening of 09/15/2020 with Juliet BOND, discussed and reviewed the chart. The patient just slept 6-1/4 hours previous night. She has been delusional, telling the nursing staff she is here for a stroke. She took her a.m. medications, resistive with afternoon medications. Review of Systems: Ambulation impaired with walker. No CV, , pulmonary, eye, ENT system symptoms on review. Mental Status Exam: The patient is oriented to herself and situation. She was seen in the hallway. She is somewhat stating she is tired, wants to be taken to bed. I reassured her nursing staff would do that after the 7 oclock nursing report which was just happening. Speech has some latency, coherent. Abstraction is fair. Computation impaired. Language function is intact. Attention span is short. Mood and affect is somewhat withdrawn, remains paranoid. No suicidal or homicidal ideation. She is less delusional, less inattentive somewhat. Laboratory Data: Reviewed. Impression: Bipolar disorder mixed with psychotic features in partial remission. Anxiety disorder unspecified. Impulse control disorder unspecified. Plan: Continue current psychotropics. Adjust further as clinically indicated. Assessment: Vital Signs/I&O: Vital Signs Date Time Temp Pulse Resp B/P (MAP) Pulse Ox O2 Delivery O2 Flow Rate FiO2 09/16/20 06:07 97.4 64 20 177/84 (115) 96 09/15/20 06:24 Room Air I & O 09/15/20 09/15/20 09/16/20 15:00 23:00 07:00 Intake Total 650 ml 445 ml Balance 650 ml 445 ml Labs: Laboratory Tests Test 09/16/20 07:36 Glucose (Fingerstick) 108 mg/dL (70-99) H Current Medications: Meds: Laboratory Tests Test 09/16/20 07:36 Glucose (Fingerstick) 108 mg/dL Current Medications Medications (Trade) Dose Ordered Sig/Annika Route PRN Reason Start Time Stop Time Status Last Admin Dose Admin Acetaminophen (Tylenol) 650 mg PRN Q6HRS PRN PO MILD PAIN / TEMP > 100.3'F 09/02/20 15:00 09/02/20 16:17 DC Multi-Ingredient Ointment (Analgesic [place]) 1 hui PRN QID PRN TP MUSCLE PAIN 09/02/20 15:00 Al Hydroxide/Mg Hydroxide (Mylanta Plus Xs) 15 ml PRN AFTMEALHC PRN PO DYSPEPSIA 09/02/20 15:00 09/02/20 16:28 DC Magnesium Hydroxide (Milk Of Magnesia) 2,400 mg PRN QHS PRN PO CONSTIPATION 09/02/20 15:00 Acetaminophen (Tylenol) 650 mg PRN Q4HRS PRN PO MILD PAIN / TEMP > 100.3'F 09/02/20 16:15 Albuterol Sulfate (Ventolin Hfa Inhaler) 2 puff BID INH 09/02/20 21:00 09/15/20 20:02 Amlodipine Besylate (Norvasc) 10 mg DAILY PO 09/03/20 09:00 09/15/20 07:24 Atenolol (Tenormin) 50 mg DAILY PO 09/03/20 09:00 09/15/20 07:23 Bupropion HCl (Wellbutrin Xl) 300 mg DAILY PO 09/03/20 09:00 09/15/20 07:23 Divalproex Sodium (Depakote Er) 1,500 mg QHS PO 09/02/20 21:00 09/08/20 20:12 DC 09/07/20 19:41 Docusate Sodium (Colace) 100 mg DAILY PO 09/03/20 09:00 09/15/20 07:24 Donepezil HCl (Aricept) 10 mg HS PO 09/02/20 21:00 09/15/20 20:00 Ferrous Sulfate (Feosol) 325 mg DAILY PO 09/03/20 09:00 09/15/20 07:24 Furosemide (Lasix) 40 mg DAILY PO 09/03/20 09:00 09/15/20 07:25 Guaifenesin (Mucinex Er) 1,200 mg BID PO 09/02/20 21:00 09/15/20 20:00 Hydralazine HCl (Apresoline) 25 mg TID PO 09/02/20 21:00 09/15/20 19:59 Levothyroxine Sodium (Synthroid) 125 mcg DAILY06 PO 09/03/20 06:00 09/16/20 05:33 Al Hydroxide/Mg Hydroxide (Mylanta Plus Xs) 30 ml PRN Q2HRS PRN PO DYSPEPSIA 09/02/20 16:15 Multi-Ingredient Ointment (Analgesic [place]) 1 hui PRN QID PRN TP MUSCLE PAIN 09/02/20 16:15 09/02/20 16:29 DC Montelukast Sodium (Singulair) 10 mg HS PO 09/02/20 21:00 09/15/20 20:00 Olanzapine (ZyPREXA ZYDIS) 2.5 mg PRN Q2HRS PRN PO psychosis/agitation 09/02/20 16:15 09/02/20 16:20 DC Pantoprazole Sodium (Protonix) 40 mg HS PO 09/02/20 21:00 09/15/20 20:00 Polyethylene Glycol (miraLAX) 17 gm DAILY PO 09/03/20 09:00 09/15/20 07:24 Artificial Tears (Artificial Tears) 2 drop BID OU 09/02/20 21:00 09/15/20 20:02 Risperidone (RisperDAL) 0.25 mg QHS PO 09/02/20 21:00 09/07/20 16:47 DC 09/06/20 20:54 Risperidone (RisperDAL) 1 mg QHS PO 09/02/20 21:00 09/07/20 16:47 DC 09/06/20 20:55 Trazodone HCl (Desyrel) 50 mg HS PO 09/02/20 21:00 09/15/20 19:59 Trazodone HCl (Desyrel) 50 mg PRN QHS PRN PO insomnia 09/02/20 16:15 Calcium/Vitamin D (Oscal D 500mg/ 200uts) 1 tab DAILY PO 09/03/20 09:00 09/15/20 07:24 Fluticasone Propionate (Flonase) 2 spray DAILY NS 09/03/20 09:00 09/15/20 07:51 Magnesium Chloride (Mag Delay) 64 mg DAILY PO 09/03/20 09:00 09/15/20 07:23 Non-Formulary Medication (Magnesium Hydroxide (Milk Of Magnesia)) 2,400 mg PRN QHS PRN PO CONSTIPATION 09/02/20 16:15 09/02/20 16:32 DC Metformin HCl (Glucophage) 1,000 mg DAILYWBKFT PO 09/03/20 08:00 09/15/20 07:23 Multivitamins/ Calcium (Thera-M Plus) 1 tab DAILY PO 09/03/20 09:00 09/15/20 07:25 Oxybutynin Chloride (Ditropan) 5 mg QHS PO 09/02/20 21:00 09/15/20 19:59 Guaifenesin (Robitussin) 100 mg PRN Q2HRS PRN PO COUGH 09/02/20 16:30 Hydrocortisone Acetate (Anucort-Hc) 25 mg PRN DAILY PRN RC RECTAL PAIN 09/02/20 16:30 Haloperidol (Haldol) 0.5 mg DAILY PO 09/08/20 09:00 09/15/20 07:24 Valproic Acid (Depakene) 750 mg BID PO 09/08/20 21:00 09/15/20 20:00 I have reviewed the current psychotropics carefully including drug interactions. Risk benefit ratio favors no change other than as noted in my dictated progress note. Diagnosis: Problems: (1) Impulse control disorder, unspecified (2) Anxiety disorder, unspecified (3) Bipolar disorder, curr episode mixed, severe, with psychotic features JABARI ARBOLEDA MD Sep 16, 2020 07:56
[2020-09-16] MEDS: MAGNESIUM CHLORIDE ER 64 MG TABLET.ER PO SCH (08:46)
[2020-09-16] MEDS: metFORMIN 500 MG TABLET PO SCH (08:46)
[2020-09-16] MEDS: POLYETHYLENE GLYCOL 3350 17 GM PACKET. PO SCH (08:46)
[2020-09-16] MEDS: VALPROATE ACID 250 MG/5 ML ORAL SOLUTION PO SCH ×2 (08:46→20:09)
[2020-09-16] MEDS: buPROPion XL 300 MG TAB.ER.24H. PO SCH (08:46)
[2020-09-16] MEDS: CALCIUM CARB/VIT D3 500/200 TABLET PO SCH (08:47)
[2020-09-16] MEDS: FUROSEMIDE 40 MG TABLET PO SCH (08:47)
[2020-09-16] MEDS: MULTIVITAMIN with MINERAL TABLET. PO SCH (08:47)
[2020-09-16] MEDS: hydrALAZINE 25 MG TABLET PO SCH ×3 (08:47→20:10)
[2020-09-16] MEDS: amLODIPine BESYLATE 10 MG TABLET PO SCH (08:48)
[2020-09-16] MEDS: ATENOLOL 50 MG TABLET PO SCH (08:48)
[2020-09-16] MEDS: DOCUSATE SODIUM 100 MG CAPSULE PO SCH (08:49)
[2020-09-16] MEDS: HALOPERIDOL 0.5 MG TABLET PO SCH (08:49)
[2020-09-16] MEDS: FERROUS SULFATE 325 MG TABLET. PO SCH (08:49)
[2020-09-16] MEDS: POLYVINYL ALCOHOL 1.4% OPHTH SOLUTION 15ML BOTTLE. OU SCH ×2 (09:00→20:12)
[2020-09-16] MEDS: ALBUTEROL SULFATE 8GM INHALER. INH SCH ×2 (09:00→20:12)
[2020-09-16] MEDS: FLUTICASONE 50MCG/NASAL SPRAY 16GM BOTTLE. NS SCH (09:00)
[2020-09-16 16:03] VITALS: BP 116/79
[2020-09-16] MEDS: MONTELUKAST 10 MG TABLET. PO SCH (20:09)
[2020-09-16] MEDS: traZODone 50 MG TABLET. PO SCH (20:09)
[2020-09-16] MEDS: OXYBUTYNIN CHLORIDE 5 MG TABLET PO SCH (20:09)
[2020-09-16] MEDS: DONEPEZIL HCL 10 MG TABLET PO SCH (20:10)
[2020-09-16] MEDS: PANTOPRAZOLE 40 MG TABLET. PO SCH (20:14)
--- NOTE | 2020-09-16 22:09 | PDOC ---
Exam Note: [facility] Note: Please also refer to the separate dictated note~for this date of service dictated separately.~Patient seen individually. Discussed the patient with Nursing staff reviewed the chart.~Reviewed interim history and current functioning. Reviewed vital signs,~Labs/ Radiology~and current medications noted below. Continue current treatment with the changes noted in the dictated addendum note Assessment: Vital Signs/I&O: Vital Signs Date Time Temp Pulse Resp B/P (MAP) Pulse Ox O2 Delivery O2 Flow Rate FiO2 09/16/20 20:10 60 116/79 09/16/20 16:03 97.6 20 99 09/15/20 06:24 Room Air I & O 09/15/20 09/15/20 09/16/20 15:00 23:00 07:00 Intake Total 650 ml 445 ml Balance 650 ml 445 ml Labs: Laboratory Tests Test 09/16/20 07:36 Glucose (Fingerstick) 108 mg/dL (70-99) H Current Medications: Meds: Laboratory Tests Test 09/16/20 07:36 Glucose (Fingerstick) 108 mg/dL Current Medications Medications (Trade) Dose Ordered Sig/Annika Route PRN Reason Start Time Stop Time Status Last Admin Dose Admin Acetaminophen (Tylenol) 650 mg PRN Q6HRS PRN PO MILD PAIN / TEMP > 100.3'F 09/02/20 15:00 09/02/20 16:17 DC Multi-Ingredient Ointment (Analgesic [place]) 1 hui PRN QID PRN TP MUSCLE PAIN 09/02/20 15:00 Al Hydroxide/Mg Hydroxide (Mylanta Plus Xs) 15 ml PRN AFTMEALHC PRN PO DYSPEPSIA 09/02/20 15:00 09/02/20 16:28 DC Magnesium Hydroxide (Milk Of Magnesia) 2,400 mg PRN QHS PRN PO CONSTIPATION 09/02/20 15:00 Acetaminophen (Tylenol) 650 mg PRN Q4HRS PRN PO MILD PAIN / TEMP > 100.3'F 09/02/20 16:15 Albuterol Sulfate (Ventolin Hfa Inhaler) 2 puff BID INH 09/02/20 21:00 09/16/20 20:12 Amlodipine Besylate (Norvasc) 10 mg DAILY PO 09/03/20 09:00 09/16/20 08:48 Atenolol (Tenormin) 50 mg DAILY PO 09/03/20 09:00 09/16/20 08:48 Bupropion HCl (Wellbutrin Xl) 300 mg DAILY PO 09/03/20 09:00 09/16/20 08:46 Divalproex Sodium (Depakote Er) 1,500 mg QHS PO 09/02/20 21:00 09/08/20 20:12 DC 09/07/20 19:41 Docusate Sodium (Colace) 100 mg DAILY PO 09/03/20 09:00 09/16/20 08:49 Donepezil HCl (Aricept) 10 mg HS PO 09/02/20 21:00 09/16/20 20:10 Ferrous Sulfate (Feosol) 325 mg DAILY PO 09/03/20 09:00 09/16/20 08:49 Furosemide (Lasix) 40 mg DAILY PO 09/03/20 09:00 09/16/20 08:47 Guaifenesin (Mucinex Er) 1,200 mg BID PO 09/02/20 21:00 09/16/20 20:09 Hydralazine HCl (Apresoline) 25 mg TID PO 09/02/20 21:00 09/16/20 20:10 Levothyroxine Sodium (Synthroid) 125 mcg DAILY06 PO 09/03/20 06:00 09/16/20 05:33 Al Hydroxide/Mg Hydroxide (Mylanta Plus Xs) 30 ml PRN Q2HRS PRN PO DYSPEPSIA 09/02/20 16:15 Multi-Ingredient Ointment (Analgesic [place]) 1 hui PRN QID PRN TP MUSCLE PAIN 09/02/20 16:15 09/02/20 16:29 DC Montelukast Sodium (Singulair) 10 mg HS PO 09/02/20 21:00 09/16/20 20:09 Olanzapine (ZyPREXA ZYDIS) 2.5 mg PRN Q2HRS PRN PO psychosis/agitation 09/02/20 16:15 09/02/20 16:20 DC Pantoprazole Sodium (Protonix) 40 mg HS PO 09/02/20 21:00 09/16/20 20:14 Polyethylene Glycol (miraLAX) 17 gm DAILY PO 09/03/20 09:00 09/16/20 08:46 Artificial Tears (Artificial Tears) 2 drop BID OU 09/02/20 21:00 09/16/20 20:12 Risperidone (RisperDAL) 0.25 mg QHS PO 09/02/20 21:00 09/07/20 16:47 DC 09/06/20 20:54 Risperidone (RisperDAL) 1 mg QHS PO 09/02/20 21:00 09/07/20 16:47 DC 09/06/20 20:55 Trazodone HCl (Desyrel) 50 mg HS PO 09/02/20 21:00 09/16/20 20:09 Trazodone HCl (Desyrel) 50 mg PRN QHS PRN PO insomnia 09/02/20 16:15 Calcium/Vitamin D (Oscal D 500mg/ 200uts) 1 tab DAILY PO 09/03/20 09:00 09/16/20 08:47 Fluticasone Propionate (Flonase) 2 spray DAILY NS 09/03/20 09:00 09/16/20 09:00 Magnesium Chloride (Mag Delay) 64 mg DAILY PO 09/03/20 09:00 09/16/20 08:46 Non-Formulary Medication (Magnesium Hydroxide (Milk Of Magnesia)) 2,400 mg PRN QHS PRN PO CONSTIPATION 09/02/20 16:15 09/02/20 16:32 DC Metformin HCl (Glucophage) 1,000 mg DAILYWBKFT PO 09/03/20 08:00 09/16/20 08:46 Multivitamins/ Calcium (Thera-M Plus) 1 tab DAILY PO 09/03/20 09:00 09/16/20 08:47 Oxybutynin Chloride (Ditropan) 5 mg QHS PO 09/02/20 21:00 09/16/20 20:09 Guaifenesin (Robitussin) 100 mg PRN Q2HRS PRN PO COUGH 09/02/20 16:30 Hydrocortisone Acetate (Anucort-Hc) 25 mg PRN DAILY PRN RC RECTAL PAIN 09/02/20 16:30 Haloperidol (Haldol) 0.5 mg DAILY PO 09/08/20 09:00 09/16/20 18:34 DC 09/16/20 08:49 Valproic Acid (Depakene) 750 mg BID PO 09/08/20 21:00 09/16/20 20:09 Haloperidol (Haldol) 0.5 mg HS PO 09/17/20 21:00 I have reviewed the current psychotropics carefully including drug interactions. Risk benefit ratio favors no change other than as noted in my dictated progress note. Diagnosis: Problems: (1) Impulse control disorder, unspecified (2) Anxiety disorder, unspecified (3) Bipolar disorder, curr episode mixed, severe, with psychotic features JABARI ARBOLEDA MD Sep 16, 2020 22:09
[2020-09-17] MEDS: LEVOTHYROXINE 125 MCG TABLET PO SCH (05:34)
[2020-09-17 05:59] VITALS: BP 148/85
[2020-09-17 06:38] LABS: BASO % 1 % (0-3); EOS # 0.1 x10^3/uL (0.0-0.7); EOS % 2 % (0-3); HEMATOCRIT 36.2 % (36.0-47.0); HEMOGLOBIN 11.7 g/dL (12.0-15.5); LYMPH # 2.1 x10^3/uL (1.0-4.8); LYMPH % 33 % (24-48); MEAN CORPUSCULAR HEMOGLOBIN 30 pg (25-35); MEAN CORPUSCULAR HGB CONC 32 g/dL (31-37); MEAN CORPUSCULAR VOLUME 92 fL (79-100); MONO % 17 % (0-9); NEUT % 48 % (31-73); PLATELET COUNT 233 x10^3/uL (140-400); RED BLOOD COUNT 3.92 x10^6/uL (3.50-5.40); RED CELL DISTRIBUTION WIDTH 16.8 % (11.5-14.5); WHITE BLOOD COUNT 6.3 x10^3/uL (4.0-11.0)
[2020-09-17 07:32] LABS: ALBUMIN 3.1 g/dL (3.4-5.0); ALBUMIN/GLOBULIN RATIO 0.9 (1.0-1.7); CALCIUM 9.1 mg/dL (8.5-10.1); CREATININE 1.5 mg/dL (0.6-1.0); GFR 34.2; POTASSIUM 4.3 mmol/L (3.5-5.1); TOTAL BILIRUBIN 0.2 mg/dL (0.2-1.0); TOTAL PROTEIN 6.5 g/dL (6.4-8.2)
[2020-09-17] MEDS: POLYETHYLENE GLYCOL 3350 17 GM PACKET. PO SCH (07:37)
[2020-09-17] MEDS: MAGNESIUM CHLORIDE ER 64 MG TABLET.ER PO SCH (07:38)
[2020-09-17] MEDS: DOCUSATE SODIUM 100 MG CAPSULE PO SCH (07:38)
[2020-09-17] MEDS: buPROPion XL 300 MG TAB.ER.24H. PO SCH (07:38)
[2020-09-17] MEDS: VALPROATE ACID 250 MG/5 ML ORAL SOLUTION PO SCH ×2 (07:38→21:27)
[2020-09-17] MEDS: hydrALAZINE 25 MG TABLET PO SCH ×3 (07:39→21:28)
[2020-09-17] MEDS: amLODIPine BESYLATE 10 MG TABLET PO SCH (07:39)
[2020-09-17] MEDS: FUROSEMIDE 40 MG TABLET PO SCH (07:39)
[2020-09-17] MEDS: MULTIVITAMIN with MINERAL TABLET. PO SCH (07:39)
[2020-09-17] MEDS: FERROUS SULFATE 325 MG TABLET. PO SCH (07:40)
[2020-09-17] MEDS: CALCIUM CARB/VIT D3 500/200 TABLET PO SCH (07:40)
[2020-09-17] MEDS: ATENOLOL 50 MG TABLET PO SCH (07:40)
[2020-09-17] MEDS: metFORMIN 500 MG TABLET PO SCH (07:40)
--- NOTE | 2020-09-17 08:18 | PDOC ---
Exam Note: [facility] Note: This note is a late entry for 09/16/2020 covers elements not covered in my initial note. Subjective: The patient was seen individually in the evening of 09/16/2020 with Juliet BOND, discussed and reviewed the chart. The patient just slept 3-3/4 hours previous night. Per nursing report, the patient has been gamey with staff. At times she will not answer questions, resistive to medications, refusing her inhaler, frequently isolating in her room, urinating in her bed. She is somewhat sedated during the day and we will change the Haldol 7.5 mg a day to h.s. dosage to assist with this. I met with the patient in her room in the evening at some length and addressed all of this. She minimized most of the above with limited insight. Review of Systems: Ambulation impaired with walker. No CV, , pulmonary, eye, ENT system symptoms on review. Mental Status Exam: The patient is awake, alert, and oriented. Speech coherent has some latency. Abstraction is fair. Computation impaired. Language function is intact. Attention span is short. Mood and affect is somewhat anxious, labile. She was obsessed talking about discharge plans. I addressed with her at length. No suicidal or homicidal ideation. Laboratory Data: Reviewed. Impression: Bipolar disorder mixed with psychotic features in partial remission. Anxiety disorder unspecified. Impulse control disorder unspecified. Plan: Continue current psychotropics. We are changing the Haldol to h.s. to help with daytime sedation. Maintain Wellbutrin, Aricept, and Depakene. Level is therapeutic at 79 and trazodone h.s. for insomnia. Adjust further as clinically indicated. Assessment: Vital Signs/I&O: Vital Signs Date Time Temp Pulse Resp B/P (MAP) Pulse Ox O2 Delivery O2 Flow Rate FiO2 09/17/20 07:40 53 148/85 09/17/20 05:59 97.8 18 94 09/15/20 06:24 Room Air I & O 09/16/20 09/16/20 09/17/20 15:00 23:00 07:00 Intake Total 720 ml 480 ml Balance 720 ml 480 ml Labs: Laboratory Tests Test 09/17/20 05:54 09/17/20 07:36 White Blood Count 6.3 x10^3/uL (4.0-11.0) Red Blood Count 3.92 x10^6/uL (3.50-5.40) Hemoglobin 11.7 g/dL (12.0-15.5) L Hematocrit 36.2 % (36.0-47.0) Mean Corpuscular Volume 92 fL (79-100) Mean Corpuscular Hemoglobin 30 pg (25-35) Mean Corpuscular Hemoglobin Concent 32 g/dL (31-37) Red Cell Distribution Width 16.8 % (11.5-14.5) H Platelet Count 233 x10^3/uL (140-400) Neutrophils (%) (Auto) 48 % (31-73) Lymphocytes (%) (Auto) 33 % (24-48) Monocytes (%) (Auto) 17 % (0-9) H Eosinophils (%) (Auto) 2 % (0-3) Basophils (%) (Auto) 1 % (0-3) Neutrophils # (Auto) 3.0 x10^3uL (1.8-7.7) Lymphocytes # (Auto) 2.1 x10^3/uL (1.0-4.8) Monocytes # (Auto) 1.0 x10^3/uL (0.0-1.1) Eosinophils # (Auto) 0.1 x10^3/uL (0.0-0.7) Basophils # (Auto) 0.0 x10^3/uL (0.0-0.2) Sodium Level 144 mmol/L (136-145) Potassium Level 4.3 mmol/L (3.5-5.1) Chloride Level 108 mmol/L (98-107) H Carbon Dioxide Level 30 mmol/L (21-32) Anion Gap 6 (6-14) Blood Urea Nitrogen 32 mg/dL (7-20) H Creatinine 1.5 mg/dL (0.6-1.0) H Estimated GFR (Cockcroft-Gault) 34.2 BUN/Creatinine Ratio 21 (6-20) H Glucose Level 101 mg/dL (70-99) H Calcium Level 9.1 mg/dL (8.5-10.1) Total Bilirubin 0.2 mg/dL (0.2-1.0) Aspartate Amino Transferase (AST) 8 U/L (15-37) L Alanine Aminotransferase (ALT) 17 U/L (14-59) Alkaline Phosphatase 62 U/L (46-116) Total Protein 6.5 g/dL (6.4-8.2) Albumin 3.1 g/dL (3.4-5.0) L Albumin/Globulin Ratio 0.9 (1.0-1.7) L Glucose (Fingerstick) 127 mg/dL (70-99) H Current Medications: Meds: Laboratory Tests Test 09/17/20 05:54 09/17/20 07:36 White Blood Count 6.3 x10^3/uL Red Blood Count 3.92 x10^6/uL Hemoglobin 11.7 g/dL Hematocrit 36.2 % Mean Corpuscular Volume 92 fL Mean Corpuscular Hemoglobin 30 pg Mean Corpuscular Hemoglobin Concent 32 g/dL Red Cell Distribution Width 16.8 % Platelet Count 233 x10^3/uL Neutrophils (%) (Auto) 48 % Lymphocytes (%) (Auto) 33 % Monocytes (%) (Auto) 17 % Eosinophils (%) (Auto) 2 % Basophils (%) (Auto) 1 % Neutrophils # (Auto) 3.0 x10^3uL Lymphocytes # (Auto) 2.1 x10^3/uL Monocytes # (Auto) 1.0 x10^3/uL Eosinophils # (Auto) 0.1 x10^3/uL Basophils # (Auto) 0.0 x10^3/uL Sodium Level 144 mmol/L Potassium Level 4.3 mmol/L Chloride Level 108 mmol/L Carbon Dioxide Level 30 mmol/L Anion Gap 6 Blood Urea Nitrogen 32 mg/dL Creatinine 1.5 mg/dL Estimated GFR (Cockcroft-Gault) 34.2 BUN/Creatinine Ratio 21 Glucose Level 101 mg/dL Calcium Level 9.1 mg/dL Total Bilirubin 0.2 mg/dL Aspartate Amino Transf (AST/SGOT) 8 U/L Alanine Aminotransferase (ALT/SGPT) 17 U/L Alkaline Phosphatase 62 U/L Total Protein 6.5 g/dL Albumin 3.1 g/dL Albumin/Globulin Ratio 0.9 Glucose (Fingerstick) 127 mg/dL Current Medications Medications (Trade) Dose Ordered Sig/Annika Route PRN Reason Start Time Stop Time Status Last Admin Dose Admin Acetaminophen (Tylenol) 650 mg PRN Q6HRS PRN PO MILD PAIN / TEMP > 100.3'F 09/02/20 15:00 09/02/20 16:17 DC Multi-Ingredient Ointment (Analgesic [place]) 1 hui PRN QID PRN TP MUSCLE PAIN 09/02/20 15:00 Al Hydroxide/Mg Hydroxide (Mylanta Plus Xs) 15 ml PRN AFTMEALHC PRN PO DYSPEPSIA 09/02/20 15:00 09/02/20 16:28 DC Magnesium Hydroxide (Milk Of Magnesia) 2,400 mg PRN QHS PRN PO CONSTIPATION 09/02/20 15:00 Acetaminophen (Tylenol) 650 mg PRN Q4HRS PRN PO MILD PAIN / TEMP > 100.3'F 09/02/20 16:15 Albuterol Sulfate (Ventolin Hfa Inhaler) 2 puff BID INH 09/02/20 21:00 09/16/20 20:12 Amlodipine Besylate (Norvasc) 10 mg DAILY PO 09/03/20 09:00 09/17/20 07:39 Atenolol (Tenormin) 50 mg DAILY PO 09/03/20 09:00 09/17/20 07:40 Bupropion HCl (Wellbutrin Xl) 300 mg DAILY PO 09/03/20 09:00 09/17/20 07:38 Divalproex Sodium (Depakote Er) 1,500 mg QHS PO 09/02/20 21:00 09/08/20 20:12 DC 09/07/20 19:41 Docusate Sodium (Colace) 100 mg DAILY PO 09/03/20 09:00 09/17/20 07:38 Donepezil HCl (Aricept) 10 mg HS PO 09/02/20 21:00 09/16/20 20:10 Ferrous Sulfate (Feosol) 325 mg DAILY PO 09/03/20 09:00 09/17/20 07:40 Furosemide (Lasix) 40 mg DAILY PO 09/03/20 09:00 09/17/20 07:39 Guaifenesin (Mucinex Er) 1,200 mg BID PO 09/02/20 21:00 09/17/20 07:38 Hydralazine HCl (Apresoline) 25 mg TID PO 09/02/20 21:00 09/17/20 07:39 Levothyroxine Sodium (Synthroid) 125 mcg DAILY06 PO 09/03/20 06:00 09/17/20 05:34 Al Hydroxide/Mg Hydroxide (Mylanta Plus Xs) 30 ml PRN Q2HRS PRN PO DYSPEPSIA 09/02/20 16:15 Multi-Ingredient Ointment (Analgesic [place]) 1 hui PRN QID PRN TP MUSCLE PAIN 09/02/20 16:15 09/02/20 16:29 DC Montelukast Sodium (Singulair) 10 mg HS PO 09/02/20 21:00 09/16/20 20:09 Olanzapine (ZyPREXA ZYDIS) 2.5 mg PRN Q2HRS PRN PO psychosis/agitation 09/02/20 16:15 09/02/20 16:20 DC Pantoprazole Sodium (Protonix) 40 mg HS PO 09/02/20 21:00 09/16/20 20:14 Polyethylene Glycol (miraLAX) 17 gm DAILY PO 09/03/20 09:00 09/17/20 07:37 Artificial Tears (Artificial Tears) 2 drop BID OU 09/02/20 21:00 09/16/20 20:12 Risperidone (RisperDAL) 0.25 mg QHS PO 09/02/20 21:00 09/07/20 16:47 DC 09/06/20 20:54 Risperidone (RisperDAL) 1 mg QHS PO 09/02/20 21:00 09/07/20 16:47 DC 09/06/20 20:55 Trazodone HCl (Desyrel) 50 mg HS PO 09/02/20 21:00 09/16/20 20:09 Trazodone HCl (Desyrel) 50 mg PRN QHS PRN PO insomnia 09/02/20 16:15 Calcium/Vitamin D (Oscal D 500mg/ 200uts) 1 tab DAILY PO 09/03/20 09:00 09/17/20 07:40 Fluticasone Propionate (Flonase) 2 spray DAILY NS 09/03/20 09:00 09/16/20 09:00 Magnesium Chloride (Mag Delay) 64 mg DAILY PO 09/03/20 09:00 09/17/20 07:38 Non-Formulary Medication (Magnesium Hydroxide (Milk Of Magnesia)) 2,400 mg PRN QHS PRN PO CONSTIPATION 09/02/20 16:15 09/02/20 16:32 DC Metformin HCl (Glucophage) 1,000 mg DAILYWBKFT PO 09/03/20 08:00 09/17/20 07:40 Multivitamins/ Calcium (Thera-M Plus) 1 tab DAILY PO 09/03/20 09:00 09/17/20 07:39 Oxybutynin Chloride (Ditropan) 5 mg QHS PO 09/02/20 21:00 09/16/20 20:09 Guaifenesin (Robitussin) 100 mg PRN Q2HRS PRN PO COUGH 09/02/20 16:30 Hydrocortisone Acetate (Anucort-Hc) 25 mg PRN DAILY PRN RC RECTAL PAIN 09/02/20 16:30 Haloperidol (Haldol) 0.5 mg DAILY PO 09/08/20 09:00 09/16/20 18:34 DC 09/16/20 08:49 Valproic Acid (Depakene) 750 mg BID PO 09/08/20 21:00 09/17/20 07:38 Haloperidol (Haldol) 0.5 mg HS PO 09/17/20 21:00 I have reviewed the current psychotropics carefully including drug interactions. Risk benefit ratio favors no change other than as noted in my dictated progress note. Diagnosis: Problems: (1) Impulse control disorder, unspecified (2) Anxiety disorder, unspecified (3) Bipolar disorder, curr episode mixed, severe, with psychotic features JABARI ARBOLEDA MD Sep 17, 2020 08:18
[2020-09-17] MEDS: FLUTICASONE 50MCG/NASAL SPRAY 16GM BOTTLE. NS SCH (08:58)
[2020-09-17] MEDS: ALBUTEROL SULFATE 8GM INHALER. INH SCH ×2 (08:58→21:34)
[2020-09-17] MEDS: POLYVINYL ALCOHOL 1.4% OPHTH SOLUTION 15ML BOTTLE. OU SCH ×2 (08:58→21:34)
[2020-09-17 16:17] VITALS: BP 105/70
[2020-09-17] MEDS: DONEPEZIL HCL 10 MG TABLET PO SCH (21:27)
[2020-09-17] MEDS: OXYBUTYNIN CHLORIDE 5 MG TABLET PO SCH (21:27)
[2020-09-17] MEDS: traZODone 50 MG TABLET. PO SCH (21:28)
[2020-09-17] MEDS: PANTOPRAZOLE 40 MG TABLET. PO SCH (21:28)
[2020-09-17] MEDS: MONTELUKAST 10 MG TABLET. PO SCH (21:28)
[2020-09-17] MEDS: HALOPERIDOL 0.5 MG TABLET PO SCH (21:33)
--- NOTE | 2020-09-17 21:50 | PDOC ---
Exam Note: [facility] Note: Please also refer to the separate dictated note~for this date of service dictated separately.~Patient seen individually. Discussed the patient with Nursing staff reviewed the chart.~Reviewed interim history and current functioning. Reviewed vital signs,~Labs/ Radiology~and current medications noted below. Continue current treatment with the changes noted in the dictated addendum note Assessment: Vital Signs/I&O: Vital Signs Date Time Temp Pulse Resp B/P (MAP) Pulse Ox O2 Delivery O2 Flow Rate FiO2 09/17/20 21:28 72 105/70 09/17/20 16:17 98.0 20 96 09/15/20 06:24 Room Air I & O 09/16/20 09/16/20 09/17/20 15:00 23:00 07:00 Intake Total 720 ml 480 ml Balance 720 ml 480 ml Labs: Laboratory Tests Test 09/17/20 05:54 09/17/20 07:36 White Blood Count 6.3 x10^3/uL (4.0-11.0) Red Blood Count 3.92 x10^6/uL (3.50-5.40) Hemoglobin 11.7 g/dL (12.0-15.5) L Hematocrit 36.2 % (36.0-47.0) Mean Corpuscular Volume 92 fL (79-100) Mean Corpuscular Hemoglobin 30 pg (25-35) Mean Corpuscular Hemoglobin Concent 32 g/dL (31-37) Red Cell Distribution Width 16.8 % (11.5-14.5) H Platelet Count 233 x10^3/uL (140-400) Neutrophils (%) (Auto) 48 % (31-73) Lymphocytes (%) (Auto) 33 % (24-48) Monocytes (%) (Auto) 17 % (0-9) H Eosinophils (%) (Auto) 2 % (0-3) Basophils (%) (Auto) 1 % (0-3) Neutrophils # (Auto) 3.0 x10^3uL (1.8-7.7) Lymphocytes # (Auto) 2.1 x10^3/uL (1.0-4.8) Monocytes # (Auto) 1.0 x10^3/uL (0.0-1.1) Eosinophils # (Auto) 0.1 x10^3/uL (0.0-0.7) Basophils # (Auto) 0.0 x10^3/uL (0.0-0.2) Sodium Level 144 mmol/L (136-145) Potassium Level 4.3 mmol/L (3.5-5.1) Chloride Level 108 mmol/L (98-107) H Carbon Dioxide Level 30 mmol/L (21-32) Anion Gap 6 (6-14) Blood Urea Nitrogen 32 mg/dL (7-20) H Creatinine 1.5 mg/dL (0.6-1.0) H Estimated GFR (Cockcroft-Gault) 34.2 BUN/Creatinine Ratio 21 (6-20) H Glucose Level 101 mg/dL (70-99) H Calcium Level 9.1 mg/dL (8.5-10.1) Total Bilirubin 0.2 mg/dL (0.2-1.0) Aspartate Amino Transferase (AST) 8 U/L (15-37) L Alanine Aminotransferase (ALT) 17 U/L (14-59) Alkaline Phosphatase 62 U/L (46-116) Total Protein 6.5 g/dL (6.4-8.2) Albumin 3.1 g/dL (3.4-5.0) L Albumin/Globulin Ratio 0.9 (1.0-1.7) L Glucose (Fingerstick) 127 mg/dL (70-99) H Current Medications: Meds: Laboratory Tests Test 09/17/20 05:54 09/17/20 07:36 White Blood Count 6.3 x10^3/uL Red Blood Count 3.92 x10^6/uL Hemoglobin 11.7 g/dL Hematocrit 36.2 % Mean Corpuscular Volume 92 fL Mean Corpuscular Hemoglobin 30 pg Mean Corpuscular Hemoglobin Concent 32 g/dL Red Cell Distribution Width 16.8 % Platelet Count 233 x10^3/uL Neutrophils (%) (Auto) 48 % Lymphocytes (%) (Auto) 33 % Monocytes (%) (Auto) 17 % Eosinophils (%) (Auto) 2 % Basophils (%) (Auto) 1 % Neutrophils # (Auto) 3.0 x10^3uL Lymphocytes # (Auto) 2.1 x10^3/uL Monocytes # (Auto) 1.0 x10^3/uL Eosinophils # (Auto) 0.1 x10^3/uL Basophils # (Auto) 0.0 x10^3/uL Sodium Level 144 mmol/L Potassium Level 4.3 mmol/L Chloride Level 108 mmol/L Carbon Dioxide Level 30 mmol/L Anion Gap 6 Blood Urea Nitrogen 32 mg/dL Creatinine 1.5 mg/dL Estimated GFR (Cockcroft-Gault) 34.2 BUN/Creatinine Ratio 21 Glucose Level 101 mg/dL Calcium Level 9.1 mg/dL Total Bilirubin 0.2 mg/dL Aspartate Amino Transf (AST/SGOT) 8 U/L Alanine Aminotransferase (ALT/SGPT) 17 U/L Alkaline Phosphatase 62 U/L Total Protein 6.5 g/dL Albumin 3.1 g/dL Albumin/Globulin Ratio 0.9 Glucose (Fingerstick) 127 mg/dL Current Medications Medications (Trade) Dose Ordered Sig/Annika Route PRN Reason Start Time Stop Time Status Last Admin Dose Admin Acetaminophen (Tylenol) 650 mg PRN Q6HRS PRN PO MILD PAIN / TEMP > 100.3'F 09/02/20 15:00 09/02/20 16:17 DC Multi-Ingredient Ointment (Analgesic [place]) 1 hui PRN QID PRN TP MUSCLE PAIN 09/02/20 15:00 Al Hydroxide/Mg Hydroxide (Mylanta Plus Xs) 15 ml PRN AFTMEALHC PRN PO DYSPEPSIA 09/02/20 15:00 09/02/20 16:28 DC Magnesium Hydroxide (Milk Of Magnesia) 2,400 mg PRN QHS PRN PO CONSTIPATION 09/02/20 15:00 Acetaminophen (Tylenol) 650 mg PRN Q4HRS PRN PO MILD PAIN / TEMP > 100.3'F 09/02/20 16:15 Albuterol Sulfate (Ventolin Hfa Inhaler) 2 puff BID INH 09/02/20 21:00 09/17/20 21:34 Amlodipine Besylate (Norvasc) 10 mg DAILY PO 09/03/20 09:00 09/17/20 07:39 Atenolol (Tenormin) 50 mg DAILY PO 09/03/20 09:00 09/17/20 07:40 Bupropion HCl (Wellbutrin Xl) 300 mg DAILY PO 09/03/20 09:00 09/17/20 07:38 Divalproex Sodium (Depakote Er) 1,500 mg QHS PO 09/02/20 21:00 09/08/20 20:12 DC 09/07/20 19:41 Docusate Sodium (Colace) 100 mg DAILY PO 09/03/20 09:00 09/17/20 07:38 Donepezil HCl (Aricept) 10 mg HS PO 09/02/20 21:00 09/17/20 21:27 Ferrous Sulfate (Feosol) 325 mg DAILY PO 09/03/20 09:00 09/17/20 07:40 Furosemide (Lasix) 40 mg DAILY PO 09/03/20 09:00 09/17/20 07:39 Guaifenesin (Mucinex Er) 1,200 mg BID PO 09/02/20 21:00 09/17/20 21:27 Hydralazine HCl (Apresoline) 25 mg TID PO 09/02/20 21:00 09/17/20 21:28 Levothyroxine Sodium (Synthroid) 125 mcg DAILY06 PO 09/03/20 06:00 09/17/20 05:34 Al Hydroxide/Mg Hydroxide (Mylanta Plus Xs) 30 ml PRN Q2HRS PRN PO DYSPEPSIA 09/02/20 16:15 Multi-Ingredient Ointment (Analgesic [place]) 1 hui PRN QID PRN TP MUSCLE PAIN 09/02/20 16:15 09/02/20 16:29 DC Montelukast Sodium (Singulair) 10 mg HS PO 09/02/20 21:00 09/17/20 21:28 Olanzapine (ZyPREXA ZYDIS) 2.5 mg PRN Q2HRS PRN PO psychosis/agitation 09/02/20 16:15 09/02/20 16:20 DC Pantoprazole Sodium (Protonix) 40 mg HS PO 09/02/20 21:00 09/17/20 21:28 Polyethylene Glycol (miraLAX) 17 gm DAILY PO 09/03/20 09:00 09/17/20 07:37 Artificial Tears (Artificial Tears) 2 drop BID OU 09/02/20 21:00 09/17/20 21:34 Risperidone (RisperDAL) 0.25 mg QHS PO 09/02/20 21:00 09/07/20 16:47 DC 09/06/20 20:54 Risperidone (RisperDAL) 1 mg QHS PO 09/02/20 21:00 09/07/20 16:47 DC 09/06/20 20:55 Trazodone HCl (Desyrel) 50 mg HS PO 09/02/20 21:00 09/17/20 21:28 Trazodone HCl (Desyrel) 50 mg PRN QHS PRN PO insomnia 09/02/20 16:15 Calcium/Vitamin D (Oscal D 500mg/ 200uts) 1 tab DAILY PO 09/03/20 09:00 09/17/20 07:40 Fluticasone Propionate (Flonase) 2 spray DAILY NS 09/03/20 09:00 09/17/20 08:58 Magnesium Chloride (Mag Delay) 64 mg DAILY PO 09/03/20 09:00 09/17/20 07:38 Non-Formulary Medication (Magnesium Hydroxide (Milk Of Magnesia)) 2,400 mg PRN QHS PRN PO CONSTIPATION 09/02/20 16:15 09/02/20 16:32 DC Metformin HCl (Glucophage) 1,000 mg DAILYWBKFT PO 09/03/20 08:00 09/17/20 07:40 Multivitamins/ Calcium (Thera-M Plus) 1 tab DAILY PO 09/03/20 09:00 09/17/20 07:39 Oxybutynin Chloride (Ditropan) 5 mg QHS PO 09/02/20 21:00 09/17/20 21:27 Guaifenesin (Robitussin) 100 mg PRN Q2HRS PRN PO COUGH 09/02/20 16:30 Hydrocortisone Acetate (Anucort-Hc) 25 mg PRN DAILY PRN RC RECTAL PAIN 09/02/20 16:30 Haloperidol (Haldol) 0.5 mg DAILY PO 09/08/20 09:00 09/16/20 18:34 DC 09/16/20 08:49 Valproic Acid (Depakene) 750 mg BID PO 09/08/20 21:00 09/17/20 21:27 Haloperidol (Haldol) 0.5 mg HS PO 09/17/20 21:00 09/17/20 21:33 Current Medications Medications (Trade) Dose Ordered Sig/Annika Route PRN Reason Start Time Stop Time Status Last Admin Dose Admin Haloperidol (Haldol) 0.5 mg HS PO 09/17/20 21:00 09/17/20 21:33 I have reviewed the current psychotropics carefully including drug interactions. Risk benefit ratio favors no change other than as noted in my dictated progress note. Diagnosis: Problems: (1) Impulse control disorder, unspecified (2) Anxiety disorder, unspecified (3) Bipolar disorder, curr episode mixed, severe, with psychotic features JABARI ARBOLEDA MD Sep 17, 2020 21:50
[2020-09-18] MEDS: LEVOTHYROXINE 125 MCG TABLET PO SCH (04:59)
[2020-09-18 06:22] VITALS: BP 164/79
[2020-09-18 06:26] LABS: VAL ACID 56 mcg/mL (50-100)
--- NOTE | 2020-09-18 07:26 | PDOC ---
Exam Note: [facility] Note: This note is a late entry for 09/17/2020 covers elements not covered in my initial note. Subjective: The patient was seen individually in the evening of 09/17/2020 with Juliet BOND, discussed and reviewed the chart. The patient just slept 5 hours previous night. She has been isolative, spending much time in her room possibly hallucinating per nursing observations though the patient denies this. I met with her in her room. She was coughing incessantly but stated this was just started short while before I visited her. Review of Systems: Ambulation impaired with walker. Positive for the above cough. No CV, , eye, ENT system symptoms on review. Mental Status Exam: The patient is awake, alert, and oriented. She remains isolative, withdrawn. Denies hallucinations but we will continue to monitor this. Speech coherent has some latency. Abstraction is fair. Computation impaired. Language function is intact. Attention span is short. Mood and affect is somewhat withdrawn. Laboratory Data: Reviewed. Impression: Bipolar disorder mixed with psychotic features in partial remission. Anxiety disorder unspecified. Impulse control disorder unspecified. Plan: Continue psychotropics from initial note. CBC, CMP done today is unremarkable. We will adjust further as clinically indicated. Assessment: Vital Signs/I&O: Vital Signs Date Time Temp Pulse Resp B/P (MAP) Pulse Ox O2 Delivery O2 Flow Rate FiO2 09/18/20 06:22 97.8 49 20 164/79 (107) 98 09/15/20 06:24 Room Air I & O 09/17/20 09/17/20 09/18/20 15:00 23:00 07:00 Intake Total 840 ml 480 ml Balance 840 ml 480 ml Labs: Laboratory Tests Test 09/17/20 07:36 09/18/20 05:43 Glucose (Fingerstick) 127 mg/dL (70-99) H Valproic Acid Level 56 mcg/mL (50-100) Valproic Acid Last Dose Date 09/17/20 Valproic Acid Last Dose Time 2100 Current Medications: Meds: Laboratory Tests Test 09/17/20 07:36 09/18/20 05:43 Glucose (Fingerstick) 127 mg/dL Valproic Acid (Depakene) Level 56 mcg/mL Valproic Acid Last Dose Date 09/17/20 Valproic Acid Last Dose Time 2100 Current Medications Medications (Trade) Dose Ordered Sig/Annika Route PRN Reason Start Time Stop Time Status Last Admin Dose Admin Acetaminophen (Tylenol) 650 mg PRN Q6HRS PRN PO MILD PAIN / TEMP > 100.3'F 09/02/20 15:00 09/02/20 16:17 DC Multi-Ingredient Ointment (Analgesic [place]) 1 hui PRN QID PRN TP MUSCLE PAIN 09/02/20 15:00 Al Hydroxide/Mg Hydroxide (Mylanta Plus Xs) 15 ml PRN AFTMEALHC PRN PO DYSPEPSIA 09/02/20 15:00 09/02/20 16:28 DC Magnesium Hydroxide (Milk Of Magnesia) 2,400 mg PRN QHS PRN PO CONSTIPATION 09/02/20 15:00 Acetaminophen (Tylenol) 650 mg PRN Q4HRS PRN PO MILD PAIN / TEMP > 100.3'F 09/02/20 16:15 Albuterol Sulfate (Ventolin Hfa Inhaler) 2 puff BID INH 09/02/20 21:00 09/17/20 21:34 Amlodipine Besylate (Norvasc) 10 mg DAILY PO 09/03/20 09:00 09/17/20 07:39 Atenolol (Tenormin) 50 mg DAILY PO 09/03/20 09:00 09/17/20 07:40 Bupropion HCl (Wellbutrin Xl) 300 mg DAILY PO 09/03/20 09:00 09/17/20 07:38 Divalproex Sodium (Depakote Er) 1,500 mg QHS PO 09/02/20 21:00 09/08/20 20:12 DC 09/07/20 19:41 Docusate Sodium (Colace) 100 mg DAILY PO 09/03/20 09:00 09/17/20 07:38 Donepezil HCl (Aricept) 10 mg HS PO 09/02/20 21:00 09/17/20 21:27 Ferrous Sulfate (Feosol) 325 mg DAILY PO 09/03/20 09:00 09/17/20 07:40 Furosemide (Lasix) 40 mg DAILY PO 09/03/20 09:00 09/17/20 07:39 Guaifenesin (Mucinex Er) 1,200 mg BID PO 09/02/20 21:00 09/17/20 21:27 Hydralazine HCl (Apresoline) 25 mg TID PO 09/02/20 21:00 09/17/20 21:28 Levothyroxine Sodium (Synthroid) 125 mcg DAILY06 PO 09/03/20 06:00 09/18/20 04:59 Al Hydroxide/Mg Hydroxide (Mylanta Plus Xs) 30 ml PRN Q2HRS PRN PO DYSPEPSIA 09/02/20 16:15 Multi-Ingredient Ointment (Analgesic [place]) 1 hui PRN QID PRN TP MUSCLE PAIN 09/02/20 16:15 09/02/20 16:29 DC Montelukast Sodium (Singulair) 10 mg HS PO 09/02/20 21:00 09/17/20 21:28 Olanzapine (ZyPREXA ZYDIS) 2.5 mg PRN Q2HRS PRN PO psychosis/agitation 09/02/20 16:15 09/02/20 16:20 DC Pantoprazole Sodium (Protonix) 40 mg HS PO 09/02/20 21:00 09/17/20 21:28 Polyethylene Glycol (miraLAX) 17 gm DAILY PO 09/03/20 09:00 09/17/20 07:37 Artificial Tears (Artificial Tears) 2 drop BID OU 09/02/20 21:00 09/17/20 21:34 Risperidone (RisperDAL) 0.25 mg QHS PO 09/02/20 21:00 09/07/20 16:47 DC 09/06/20 20:54 Risperidone (RisperDAL) 1 mg QHS PO 09/02/20 21:00 09/07/20 16:47 DC 09/06/20 20:55 Trazodone HCl (Desyrel) 50 mg HS PO 09/02/20 21:00 09/17/20 21:28 Trazodone HCl (Desyrel) 50 mg PRN QHS PRN PO insomnia 09/02/20 16:15 Calcium/Vitamin D (Oscal D 500mg/ 200uts) 1 tab DAILY PO 09/03/20 09:00 09/17/20 07:40 Fluticasone Propionate (Flonase) 2 spray DAILY NS 09/03/20 09:00 09/17/20 08:58 Magnesium Chloride (Mag Delay) 64 mg DAILY PO 09/03/20 09:00 09/17/20 07:38 Non-Formulary Medication (Magnesium Hydroxide (Milk Of Magnesia)) 2,400 mg PRN QHS PRN PO CONSTIPATION 09/02/20 16:15 09/02/20 16:32 DC Metformin HCl (Glucophage) 1,000 mg DAILYWBKFT PO 09/03/20 08:00 09/17/20 07:40 Multivitamins/ Calcium (Thera-M Plus) 1 tab DAILY PO 09/03/20 09:00 09/17/20 07:39 Oxybutynin Chloride (Ditropan) 5 mg QHS PO 09/02/20 21:00 09/17/20 21:27 Guaifenesin (Robitussin) 100 mg PRN Q2HRS PRN PO COUGH 09/02/20 16:30 Hydrocortisone Acetate (Anucort-Hc) 25 mg PRN DAILY PRN RC RECTAL PAIN 09/02/20 16:30 Haloperidol (Haldol) 0.5 mg DAILY PO 09/08/20 09:00 09/16/20 18:34 DC 09/16/20 08:49 Valproic Acid (Depakene) 750 mg BID PO 09/08/20 21:00 09/17/20 21:27 Haloperidol (Haldol) 0.5 mg HS PO 09/17/20 21:00 09/17/20 21:33 Current Medications Medications (Trade) Dose Ordered Sig/Annika Route PRN Reason Start Time Stop Time Status Last Admin Dose Admin Haloperidol (Haldol) 0.5 mg HS PO 09/17/20 21:00 09/17/20 21:33 I have reviewed the current psychotropics carefully including drug interactions. Risk benefit ratio favors no change other than as noted in my dictated progress note. Diagnosis: Problems: (1) Impulse control disorder, unspecified (2) Anxiety disorder, unspecified (3) Bipolar disorder, curr episode mixed, severe, with psychotic features JABARI ARBOLEDA MD Sep 18, 2020 07:26
[2020-09-18] MEDS: POLYETHYLENE GLYCOL 3350 17 GM PACKET. PO SCH (08:24)
[2020-09-18] MEDS: VALPROATE ACID 250 MG/5 ML ORAL SOLUTION PO SCH ×2 (08:25→20:09)
[2020-09-18] MEDS: FLUTICASONE 50MCG/NASAL SPRAY 16GM BOTTLE. NS SCH (08:26)
[2020-09-18] MEDS: DOCUSATE SODIUM 100 MG CAPSULE PO SCH (08:26)
[2020-09-18] MEDS: metFORMIN 500 MG TABLET PO SCH (08:26)
[2020-09-18] MEDS: CALCIUM CARB/VIT D3 500/200 TABLET PO SCH (08:26)
[2020-09-18] MEDS: buPROPion XL 300 MG TAB.ER.24H. PO SCH (08:27)
[2020-09-18] MEDS: MAGNESIUM CHLORIDE ER 64 MG TABLET.ER PO SCH (08:27)
[2020-09-18] MEDS: hydrALAZINE 25 MG TABLET PO SCH ×3 (08:27→20:10)
[2020-09-18] MEDS: FERROUS SULFATE 325 MG TABLET. PO SCH (08:27)
[2020-09-18] MEDS: ATENOLOL 50 MG TABLET PO SCH (08:27)
[2020-09-18] MEDS: POLYVINYL ALCOHOL 1.4% OPHTH SOLUTION 15ML BOTTLE. OU SCH ×2 (08:28→20:16)
[2020-09-18] MEDS: amLODIPine BESYLATE 10 MG TABLET PO SCH (08:28)
[2020-09-18] MEDS: MULTIVITAMIN with MINERAL TABLET. PO SCH (08:28)
[2020-09-18] MEDS: FUROSEMIDE 40 MG TABLET PO SCH (08:28)
[2020-09-18] MEDS: ALBUTEROL SULFATE 8GM INHALER. INH SCH ×2 (08:29→20:16)
[2020-09-18 15:46] VITALS: BP 132/72
[2020-09-18] MEDS: traZODone 50 MG TABLET. PO SCH (20:09)
[2020-09-18] MEDS: DONEPEZIL HCL 10 MG TABLET PO SCH (20:09)
[2020-09-18] MEDS: MONTELUKAST 10 MG TABLET. PO SCH (20:10)
[2020-09-18] MEDS: HALOPERIDOL 0.5 MG TABLET PO SCH (20:10)
[2020-09-18] MEDS: OXYBUTYNIN CHLORIDE 5 MG TABLET PO SCH (20:10)
[2020-09-18] MEDS: PANTOPRAZOLE 40 MG TABLET. PO SCH (20:10)
[2020-09-18] MEDS: MIRTAZAPINE 7.5 MG TABLET. PO SCH (20:20)
--- NOTE | 2020-09-18 21:53 | PDOC ---
Exam Note: [facility] Note: Please also refer to the separate dictated note~for this date of service dictated separately.~Patient seen individually. Discussed the patient with Nursing staff reviewed the chart.~Reviewed interim history and current functioning. Reviewed vital signs,~Labs/ Radiology~and current medications noted below. Continue current treatment with the changes noted in the dictated addendum note Assessment: Vital Signs/I&O: Vital Signs Date Time Temp Pulse Resp B/P (MAP) Pulse Ox O2 Delivery O2 Flow Rate FiO2 09/18/20 20:10 59 132/72 09/18/20 15:46 98.5 19 96 09/15/20 06:24 Room Air I & O 09/17/20 09/17/20 09/18/20 15:00 23:00 07:00 Intake Total 840 ml 480 ml Balance 840 ml 480 ml Labs: Laboratory Tests Test 09/18/20 05:43 09/18/20 07:43 Valproic Acid Level 56 mcg/mL (50-100) Valproic Acid Last Dose Date 09/17/20 Valproic Acid Last Dose Time 2100 Glucose (Fingerstick) 102 mg/dL (70-99) H Current Medications: Meds: Laboratory Tests Test 09/18/20 05:43 09/18/20 07:43 Valproic Acid (Depakene) Level 56 mcg/mL Valproic Acid Last Dose Date 09/17/20 Valproic Acid Last Dose Time 2100 Glucose (Fingerstick) 102 mg/dL Current Medications Medications (Trade) Dose Ordered Sig/Annika Route PRN Reason Start Time Stop Time Status Last Admin Dose Admin Acetaminophen (Tylenol) 650 mg PRN Q6HRS PRN PO MILD PAIN / TEMP > 100.3'F 09/02/20 15:00 09/02/20 16:17 DC Multi-Ingredient Ointment (Analgesic [place]) 1 hui PRN QID PRN TP MUSCLE PAIN 09/02/20 15:00 Al Hydroxide/Mg Hydroxide (Mylanta Plus Xs) 15 ml PRN AFTMEALHC PRN PO DYSPEPSIA 09/02/20 15:00 09/02/20 16:28 DC Magnesium Hydroxide (Milk Of Magnesia) 2,400 mg PRN QHS PRN PO CONSTIPATION 09/02/20 15:00 Acetaminophen (Tylenol) 650 mg PRN Q4HRS PRN PO MILD PAIN / TEMP > 100.3'F 09/02/20 16:15 Albuterol Sulfate (Ventolin Hfa Inhaler) 2 puff BID INH 09/02/20 21:00 09/18/20 20:16 Amlodipine Besylate (Norvasc) 10 mg DAILY PO 09/03/20 09:00 09/18/20 08:28 Atenolol (Tenormin) 50 mg DAILY PO 09/03/20 09:00 09/18/20 08:27 Bupropion HCl (Wellbutrin Xl) 300 mg DAILY PO 09/03/20 09:00 09/18/20 08:27 Divalproex Sodium (Depakote Er) 1,500 mg QHS PO 09/02/20 21:00 09/08/20 20:12 DC 09/07/20 19:41 Docusate Sodium (Colace) 100 mg DAILY PO 09/03/20 09:00 09/18/20 08:26 Donepezil HCl (Aricept) 10 mg HS PO 09/02/20 21:00 09/18/20 20:09 Ferrous Sulfate (Feosol) 325 mg DAILY PO 09/03/20 09:00 09/18/20 08:27 Furosemide (Lasix) 40 mg DAILY PO 09/03/20 09:00 09/18/20 08:28 Guaifenesin (Mucinex Er) 1,200 mg BID PO 09/02/20 21:00 09/18/20 20:10 Hydralazine HCl (Apresoline) 25 mg TID PO 09/02/20 21:00 09/18/20 20:10 Levothyroxine Sodium (Synthroid) 125 mcg DAILY06 PO 09/03/20 06:00 09/18/20 04:59 Al Hydroxide/Mg Hydroxide (Mylanta Plus Xs) 30 ml PRN Q2HRS PRN PO DYSPEPSIA 09/02/20 16:15 Multi-Ingredient Ointment (Analgesic [place]) 1 hui PRN QID PRN TP MUSCLE PAIN 09/02/20 16:15 09/02/20 16:29 DC Montelukast Sodium (Singulair) 10 mg HS PO 09/02/20 21:00 09/18/20 20:10 Olanzapine (ZyPREXA ZYDIS) 2.5 mg PRN Q2HRS PRN PO psychosis/agitation 09/02/20 16:15 09/02/20 16:20 DC Pantoprazole Sodium (Protonix) 40 mg HS PO 09/02/20 21:00 09/18/20 20:10 Polyethylene Glycol (miraLAX) 17 gm DAILY PO 09/03/20 09:00 09/18/20 08:24 Artificial Tears (Artificial Tears) 2 drop BID OU 09/02/20 21:00 09/18/20 20:16 Risperidone (RisperDAL) 0.25 mg QHS PO 09/02/20 21:00 09/07/20 16:47 DC 09/06/20 20:54 Risperidone (RisperDAL) 1 mg QHS PO 09/02/20 21:00 09/07/20 16:47 DC 09/06/20 20:55 Trazodone HCl (Desyrel) 50 mg HS PO 09/02/20 21:00 09/18/20 20:09 Trazodone HCl (Desyrel) 50 mg PRN QHS PRN PO insomnia 09/02/20 16:15 Calcium/Vitamin D (Oscal D 500mg/ 200uts) 1 tab DAILY PO 09/03/20 09:00 09/18/20 08:26 Fluticasone Propionate (Flonase) 2 spray DAILY NS 09/03/20 09:00 09/18/20 08:26 Magnesium Chloride (Mag Delay) 64 mg DAILY PO 09/03/20 09:00 09/18/20 08:27 Non-Formulary Medication (Magnesium Hydroxide (Milk Of Magnesia)) 2,400 mg PRN QHS PRN PO CONSTIPATION 09/02/20 16:15 09/02/20 16:32 DC Metformin HCl (Glucophage) 1,000 mg DAILYWBKFT PO 09/03/20 08:00 09/18/20 08:26 Multivitamins/ Calcium (Thera-M Plus) 1 tab DAILY PO 09/03/20 09:00 09/18/20 08:28 Oxybutynin Chloride (Ditropan) 5 mg QHS PO 09/02/20 21:00 09/18/20 20:10 Guaifenesin (Robitussin) 100 mg PRN Q2HRS PRN PO COUGH 09/02/20 16:30 Hydrocortisone Acetate (Anucort-Hc) 25 mg PRN DAILY PRN RC RECTAL PAIN 09/02/20 16:30 Haloperidol (Haldol) 0.5 mg DAILY PO 09/08/20 09:00 09/16/20 18:34 DC 09/16/20 08:49 Valproic Acid (Depakene) 750 mg BID PO 09/08/20 21:00 09/18/20 20:09 Haloperidol (Haldol) 0.5 mg HS PO 09/17/20 21:00 09/18/20 20:10 Mirtazapine (Remeron) 7.5 mg QHS PO 09/18/20 21:00 09/18/20 20:20 Current Medications Medications (Trade) Dose Ordered Sig/Annika Route PRN Reason Start Time Stop Time Status Last Admin Dose Admin Mirtazapine (Remeron) 7.5 mg QHS PO 09/18/20 21:00 09/18/20 20:20 I have reviewed the current psychotropics carefully including drug interactions. Risk benefit ratio favors no change other than as noted in my dictated progress note. Diagnosis: Problems: (1) Impulse control disorder, unspecified (2) Anxiety disorder, unspecified (3) Bipolar disorder, curr episode mixed, severe, with psychotic features JABARI ARBOLEDA MD Sep 18, 2020 21:53
[2020-09-19] MEDS: LEVOTHYROXINE 125 MCG TABLET PO SCH (05:35)
[2020-09-19 06:15] VITALS: BP 160/65
--- NOTE | 2020-09-19 06:55 | PDOC ---
Exam Note: [facility] Note: This note is a late entry for 09/18/2020 covers elements not covered in my initial note. Subjective: The patient was seen individually in the evening of 09/18/2020 with Cecilia BOND, discussed and reviewed the chart. The patient just slept 3-1/4 hours previous night. She has been refusing medications, forcing herself to vomit earlier in the day, better later in the day. Valproic acid level today is 56. Review of Systems: Ambulation impaired with walker. No CV, , eye, ENT system symptoms on review. Mental Status Exam: The patient is awake, alert, and oriented. I met with her in the dayroom. She was lying on the sofa but did sit up to interact with me. Speech difficult to understand, somewhat rapid at times. Abstraction is fair. Computation impaired. Language function is intact. Attention span is short. Mood and affect is somewhat withdrawn. No suicidal or homicidal ideation. Laboratory Data: Reviewed. Impression: Bipolar disorder mixed with psychotic features in partial remission. Anxiety disorder unspecified. Impulse control disorder unspecified. Plan: We will add Remeron 7.5 mg h.s. to help with insomnia. Rest unchanged for now. Assessment: Vital Signs/I&O: Vital Signs Date Time Temp Pulse Resp B/P (MAP) Pulse Ox O2 Delivery O2 Flow Rate FiO2 09/19/20 06:15 97.2 47 18 160/65 (96) 96 09/15/20 06:24 Room Air I & O 09/18/20 09/18/20 09/19/20 15:00 23:00 07:00 Intake Total 580 ml 440 ml Balance 580 ml 440 ml Labs: Laboratory Tests Test 09/18/20 07:43 Glucose (Fingerstick) 102 mg/dL (70-99) H Current Medications: Meds: Laboratory Tests Test 09/18/20 07:43 Glucose (Fingerstick) 102 mg/dL Current Medications Medications (Trade) Dose Ordered Sig/Annika Route PRN Reason Start Time Stop Time Status Last Admin Dose Admin Acetaminophen (Tylenol) 650 mg PRN Q6HRS PRN PO MILD PAIN / TEMP > 100.3'F 09/02/20 15:00 09/02/20 16:17 DC Multi-Ingredient Ointment (Analgesic [place]) 1 hui PRN QID PRN TP MUSCLE PAIN 09/02/20 15:00 Al Hydroxide/Mg Hydroxide (Mylanta Plus Xs) 15 ml PRN AFTMEALHC PRN PO DYSPEPSIA 09/02/20 15:00 09/02/20 16:28 DC Magnesium Hydroxide (Milk Of Magnesia) 2,400 mg PRN QHS PRN PO CONSTIPATION 09/02/20 15:00 Acetaminophen (Tylenol) 650 mg PRN Q4HRS PRN PO MILD PAIN / TEMP > 100.3'F 09/02/20 16:15 Albuterol Sulfate (Ventolin Hfa Inhaler) 2 puff BID INH 09/02/20 21:00 09/18/20 20:16 Amlodipine Besylate (Norvasc) 10 mg DAILY PO 09/03/20 09:00 09/18/20 08:28 Atenolol (Tenormin) 50 mg DAILY PO 09/03/20 09:00 09/18/20 08:27 Bupropion HCl (Wellbutrin Xl) 300 mg DAILY PO 09/03/20 09:00 09/18/20 08:27 Divalproex Sodium (Depakote Er) 1,500 mg QHS PO 09/02/20 21:00 09/08/20 20:12 DC 09/07/20 19:41 Docusate Sodium (Colace) 100 mg DAILY PO 09/03/20 09:00 09/18/20 08:26 Donepezil HCl (Aricept) 10 mg HS PO 09/02/20 21:00 09/18/20 20:09 Ferrous Sulfate (Feosol) 325 mg DAILY PO 09/03/20 09:00 09/18/20 08:27 Furosemide (Lasix) 40 mg DAILY PO 09/03/20 09:00 09/18/20 08:28 Guaifenesin (Mucinex Er) 1,200 mg BID PO 09/02/20 21:00 09/18/20 20:10 Hydralazine HCl (Apresoline) 25 mg TID PO 09/02/20 21:00 09/18/20 20:10 Levothyroxine Sodium (Synthroid) 125 mcg DAILY06 PO 09/03/20 06:00 09/19/20 05:35 Al Hydroxide/Mg Hydroxide (Mylanta Plus Xs) 30 ml PRN Q2HRS PRN PO DYSPEPSIA 09/02/20 16:15 Multi-Ingredient Ointment (Analgesic [place]) 1 hui PRN QID PRN TP MUSCLE PAIN 09/02/20 16:15 09/02/20 16:29 DC Montelukast Sodium (Singulair) 10 mg HS PO 09/02/20 21:00 09/18/20 20:10 Olanzapine (ZyPREXA ZYDIS) 2.5 mg PRN Q2HRS PRN PO psychosis/agitation 09/02/20 16:15 09/02/20 16:20 DC Pantoprazole Sodium (Protonix) 40 mg HS PO 09/02/20 21:00 09/18/20 20:10 Polyethylene Glycol (miraLAX) 17 gm DAILY PO 09/03/20 09:00 09/18/20 08:24 Artificial Tears (Artificial Tears) 2 drop BID OU 09/02/20 21:00 09/18/20 20:16 Risperidone (RisperDAL) 0.25 mg QHS PO 09/02/20 21:00 09/07/20 16:47 DC 09/06/20 20:54 Risperidone (RisperDAL) 1 mg QHS PO 09/02/20 21:00 09/07/20 16:47 DC 09/06/20 20:55 Trazodone HCl (Desyrel) 50 mg HS PO 09/02/20 21:00 09/18/20 20:09 Trazodone HCl (Desyrel) 50 mg PRN QHS PRN PO insomnia 09/02/20 16:15 Calcium/Vitamin D (Oscal D 500mg/ 200uts) 1 tab DAILY PO 09/03/20 09:00 09/18/20 08:26 Fluticasone Propionate (Flonase) 2 spray DAILY NS 09/03/20 09:00 09/18/20 08:26 Magnesium Chloride (Mag Delay) 64 mg DAILY PO 09/03/20 09:00 09/18/20 08:27 Non-Formulary Medication (Magnesium Hydroxide (Milk Of Magnesia)) 2,400 mg PRN QHS PRN PO CONSTIPATION 09/02/20 16:15 09/02/20 16:32 DC Metformin HCl (Glucophage) 1,000 mg DAILYWBKFT PO 09/03/20 08:00 09/18/20 08:26 Multivitamins/ Calcium (Thera-M Plus) 1 tab DAILY PO 09/03/20 09:00 09/18/20 08:28 Oxybutynin Chloride (Ditropan) 5 mg QHS PO 09/02/20 21:00 09/18/20 20:10 Guaifenesin (Robitussin) 100 mg PRN Q2HRS PRN PO COUGH 09/02/20 16:30 Hydrocortisone Acetate (Anucort-Hc) 25 mg PRN DAILY PRN RC RECTAL PAIN 09/02/20 16:30 Haloperidol (Haldol) 0.5 mg DAILY PO 09/08/20 09:00 09/16/20 18:34 DC 09/16/20 08:49 Valproic Acid (Depakene) 750 mg BID PO 09/08/20 21:00 09/18/20 20:09 Haloperidol (Haldol) 0.5 mg HS PO 09/17/20 21:00 09/18/20 20:10 Mirtazapine (Remeron) 7.5 mg QHS PO 09/18/20 21:00 09/18/20 20:20 Current Medications Medications (Trade) Dose Ordered Sig/Annika Route PRN Reason Start Time Stop Time Status Last Admin Dose Admin Mirtazapine (Remeron) 7.5 mg QHS PO 09/18/20 21:00 09/18/20 20:20 I have reviewed the current psychotropics carefully including drug interactions. Risk benefit ratio favors no change other than as noted in my dictated progress note. Diagnosis: Problems: (1) Impulse control disorder, unspecified (2) Anxiety disorder, unspecified (3) Bipolar disorder, curr episode mixed, severe, with psychotic features JABARI ARBOLEDA MD Sep 19, 2020 06:55
[2020-09-19] MEDS: POLYETHYLENE GLYCOL 3350 17 GM PACKET. PO SCH (09:02)
[2020-09-19] MEDS: VALPROATE ACID 250 MG/5 ML ORAL SOLUTION PO SCH ×2 (09:03→19:49)
[2020-09-19] MEDS: buPROPion XL 300 MG TAB.ER.24H. PO SCH (09:04)
[2020-09-19] MEDS: CALCIUM CARB/VIT D3 500/200 TABLET PO SCH (09:04)
[2020-09-19] MEDS: MAGNESIUM CHLORIDE ER 64 MG TABLET.ER PO SCH (09:05)
[2020-09-19] MEDS: amLODIPine BESYLATE 10 MG TABLET PO SCH (09:05)
[2020-09-19] MEDS: FUROSEMIDE 40 MG TABLET PO SCH (09:05)
[2020-09-19] MEDS: hydrALAZINE 25 MG TABLET PO SCH ×3 (09:06→19:58)
[2020-09-19] MEDS: ALBUTEROL SULFATE 8GM INHALER. INH SCH ×2 (09:06→21:00)
[2020-09-19] MEDS: FERROUS SULFATE 325 MG TABLET. PO SCH (09:06)
[2020-09-19] MEDS: DOCUSATE SODIUM 100 MG CAPSULE PO SCH (09:06)
[2020-09-19] MEDS: metFORMIN 500 MG TABLET PO SCH (09:06)
[2020-09-19] MEDS: MULTIVITAMIN with MINERAL TABLET. PO SCH (09:06)
[2020-09-19] MEDS: POLYVINYL ALCOHOL 1.4% OPHTH SOLUTION 15ML BOTTLE. OU SCH ×2 (09:07→21:00)
[2020-09-19] MEDS: FLUTICASONE 50MCG/NASAL SPRAY 16GM BOTTLE. NS SCH (09:07)
[2020-09-19] MEDS: ATENOLOL 50 MG TABLET PO SCH (09:08)
--- NOTE | 2020-09-19 13:23 | TX PLAN ---
Interdisciplinary Tx Plan Admission Information Sep 02, 2020 at 14:35 Legal Status (on Admission): Voluntary DPOA/Guardian Name: Comfort Bryan Contact or Other Contact Name: [facility] Other Contact Verified Code Status: DNR Allergies: Coded Allergies: adhesive (Verified Allergy, Intermediate, 02/22/20) fluoxetine (Verified Allergy, Intermediate, 02/22/20) Penicillins (Verified Allergy, Unknown, 09/03/20) Diagnoses Primary Diagnosis: Bipolar D/O, recent episode manic Reasons for Admission: Sig. Change Sleep, Poor impulse control, Other Problem in Patient's Words: Assuming natural progression within pt dx. Additional Admission Comments: According to the intake, pt is refusing medications, refusing vitals, suspicious of staff, pointed knife at staff, who found knife under pt pillow, impulsive, insomnia Problems Active Problems: resistive to medications refusal of vitals impulsive hard to redirect Inactive Problems: no insomnia noted Pt Strengths/Limitations Ability for [place]: Poor Cognitive Functioning/Ability: Fair Communication Skills/Ability: Poor Financial Resources: Fair Insight/Judgement: Poor Intellectual Ability: Poor Physical Health: Poor Social Skills: Poor Stability in Family: Fair Stability in School/Work: Poor Verbal Skills: Fair Discharge Criteria Discharge Criteria: Adequate arrangements @DC, Improved behavior, Improved mood/thought Preliminary Discharge Plan Preliminary DC Plan: Current Living Arrange. Special Precautions Fall Risk: Low Initial D/C Plan Pt to return to [facility] Identified Discharge Needs: Referrals for psychiatric services Currently Utilized Resources Currently Utilized Resources/P: Primary Care Physician Identified Problems/Hx/Goals Objectives/Short-Term Goals Short Term Goals: Dec. Aggression, Dec. Outbursts, Medication Stabilization, Monitor Med Effects, Promote Coping Skill Short Term Goals in Patient's: na Interventions/Frequency Staff Interventions/Frequency&: Psychiatrist to assess pt at least 3x per week for medication management. Social Work to assess pt at least 2x per week to identify barriers to care and completion of final discharge plans. Nursing to assess medication effects, behavior modification and completion of 15 minute checks. Encourage participation in group activities (if applicable) or 1:1 engagement based off activity dept goals History Vocational History: Pt refused to answer questions at this time. Education: Pt refused to answer questions at this time Community Follow-up Primary Care physician Community Provider/Family Inpu: NA Treatment Plan Explained Patient/Press Hand had this treatment plan explained to him/her as indicated by the signature below and has been given the opportunity to ask questions and make suggestions: Date: Patient/Press Hand Signature: Status Update Update Pt is eating almost 100% of meals and sleeping on average 4.25 hours per night. Pt continues to attempt to refuse medications and needs encouragement to take them. This morning, pt dumped her liquid Depakene on the floor and proceeded to dump her other medications in the liquid. Pt continues to urinate all over her room and has begun coughing in attempt to make herself vomit. Pt can be demanding and attempts to correct staff on "how to do their job's". Pt has been to at least 3 groups within the last week with minimum to moderate participation and has been observed having the behaviors noted by nursing staff. Pt is prescribed Wellbutrin XL, Depakene, Aricept, Trazodone, Remeron and Haldol; based on pt currently behaviors, pt will start Risperdal 1.5mg daily. Discharge to [place] can be considered for the end of next week or the beginning of the week after. CHARLES POPE Sep 19, 2020 13:23
[2020-09-19] MEDS ORDERED: risperiDONE 0.25 MG TABLET. PO ONE (14:00)
[2020-09-19] MEDS: MIRTAZAPINE 7.5 MG TABLET. PO SCH (19:52)
[2020-09-19] MEDS: traZODone 50 MG TABLET. PO SCH (19:53)
[2020-09-19] MEDS: DONEPEZIL HCL 10 MG TABLET PO SCH (19:54)
[2020-09-19] MEDS: PANTOPRAZOLE 40 MG TABLET. PO SCH (19:55)
[2020-09-19] MEDS: OXYBUTYNIN CHLORIDE 5 MG TABLET PO SCH (19:55)
[2020-09-19] MEDS: MONTELUKAST 10 MG TABLET. PO SCH (19:56)
--- NOTE | 2020-09-19 22:05 | PDOC ---
Exam Note: [facility] Note: Please also refer to the separate dictated note~for this date of service dictated separately.~Patient seen individually. Discussed the patient with Nursing staff reviewed the chart.~Reviewed interim history and current functioning. Reviewed vital signs,~Labs/ Radiology~and current medications noted below. Continue current treatment with the changes noted in the dictated addendum note Assessment: Vital Signs/I&O: Vital Signs Date Time Temp Pulse Resp B/P (MAP) Pulse Ox O2 Delivery O2 Flow Rate FiO2 09/19/20 19:58 62 177/66 09/19/20 16:01 98.4 20 92 09/15/20 06:24 Room Air I & O 09/18/20 09/18/20 09/19/20 15:00 23:00 07:00 Intake Total 580 ml 440 ml Balance 580 ml 440 ml Labs: Laboratory Tests Test 09/19/20 07:46 Glucose (Fingerstick) 132 mg/dL (70-99) H Current Medications: Meds: Laboratory Tests Test 09/19/20 07:46 Glucose (Fingerstick) 132 mg/dL Current Medications Medications (Trade) Dose Ordered Sig/Annika Route PRN Reason Start Time Stop Time Status Last Admin Dose Admin Acetaminophen (Tylenol) 650 mg PRN Q6HRS PRN PO MILD PAIN / TEMP > 100.3'F 09/02/20 15:00 09/02/20 16:17 DC Multi-Ingredient Ointment (Analgesic [place]) 1 hui PRN QID PRN TP MUSCLE PAIN 09/02/20 15:00 Al Hydroxide/Mg Hydroxide (Mylanta Plus Xs) 15 ml PRN AFTMEALHC PRN PO DYSPEPSIA 09/02/20 15:00 09/02/20 16:28 DC Magnesium Hydroxide (Milk Of Magnesia) 2,400 mg PRN QHS PRN PO CONSTIPATION 09/02/20 15:00 Acetaminophen (Tylenol) 650 mg PRN Q4HRS PRN PO MILD PAIN / TEMP > 100.3'F 09/02/20 16:15 Albuterol Sulfate (Ventolin Hfa Inhaler) 2 puff BID INH 09/02/20 21:00 09/19/20 09:06 Amlodipine Besylate (Norvasc) 10 mg DAILY PO 09/03/20 09:00 09/19/20 09:05 Atenolol (Tenormin) 50 mg DAILY PO 09/03/20 09:00 09/19/20 09:08 Bupropion HCl (Wellbutrin Xl) 300 mg DAILY PO 09/03/20 09:00 09/19/20 09:04 Divalproex Sodium (Depakote Er) 1,500 mg QHS PO 09/02/20 21:00 09/08/20 20:12 DC 09/07/20 19:41 Docusate Sodium (Colace) 100 mg DAILY PO 09/03/20 09:00 09/19/20 09:06 Donepezil HCl (Aricept) 10 mg HS PO 09/02/20 21:00 09/19/20 19:54 Ferrous Sulfate (Feosol) 325 mg DAILY PO 09/03/20 09:00 09/19/20 09:06 Furosemide (Lasix) 40 mg DAILY PO 09/03/20 09:00 09/19/20 09:05 Guaifenesin (Mucinex Er) 1,200 mg BID PO 09/02/20 21:00 09/19/20 19:55 Hydralazine HCl (Apresoline) 25 mg TID PO 09/02/20 21:00 09/19/20 19:58 Levothyroxine Sodium (Synthroid) 125 mcg DAILY06 PO 09/03/20 06:00 09/19/20 05:35 Al Hydroxide/Mg Hydroxide (Mylanta Plus Xs) 30 ml PRN Q2HRS PRN PO DYSPEPSIA 09/02/20 16:15 Multi-Ingredient Ointment (Analgesic [place]) 1 hui PRN QID PRN TP MUSCLE PAIN 09/02/20 16:15 09/02/20 16:29 DC Montelukast Sodium (Singulair) 10 mg HS PO 09/02/20 21:00 09/19/20 19:56 Olanzapine (ZyPREXA ZYDIS) 2.5 mg PRN Q2HRS PRN PO psychosis/agitation 09/02/20 16:15 09/02/20 16:20 DC Pantoprazole Sodium (Protonix) 40 mg HS PO 09/02/20 21:00 09/19/20 19:55 Polyethylene Glycol (miraLAX) 17 gm DAILY PO 09/03/20 09:00 09/19/20 09:02 Artificial Tears (Artificial Tears) 2 drop BID OU 09/02/20 21:00 09/19/20 09:07 Risperidone (RisperDAL) 0.25 mg QHS PO 09/02/20 21:00 09/07/20 16:47 DC 09/06/20 20:54 Risperidone (RisperDAL) 1 mg QHS PO 09/02/20 21:00 09/07/20 16:47 DC 09/06/20 20:55 Trazodone HCl (Desyrel) 50 mg HS PO 09/02/20 21:00 09/19/20 19:53 Trazodone HCl (Desyrel) 50 mg PRN QHS PRN PO insomnia 09/02/20 16:15 Calcium/Vitamin D (Oscal D 500mg/ 200uts) 1 tab DAILY PO 09/03/20 09:00 09/19/20 09:04 Fluticasone Propionate (Flonase) 2 spray DAILY NS 09/03/20 09:00 09/19/20 09:07 Magnesium Chloride (Mag Delay) 64 mg DAILY PO 09/03/20 09:00 09/19/20 09:05 Non-Formulary Medication (Magnesium Hydroxide (Milk Of Magnesia)) 2,400 mg PRN QHS PRN PO CONSTIPATION 09/02/20 16:15 09/02/20 16:32 DC Metformin HCl (Glucophage) 1,000 mg DAILYWBKFT PO 09/03/20 08:00 09/19/20 09:06 Multivitamins/ Calcium (Thera-M Plus) 1 tab DAILY PO 09/03/20 09:00 09/19/20 09:06 Oxybutynin Chloride (Ditropan) 5 mg QHS PO 09/02/20 21:00 09/19/20 19:55 Guaifenesin (Robitussin) 100 mg PRN Q2HRS PRN PO COUGH 09/02/20 16:30 Hydrocortisone Acetate (Anucort-Hc) 25 mg PRN DAILY PRN RC RECTAL PAIN 09/02/20 16:30 Haloperidol (Haldol) 0.5 mg DAILY PO 09/08/20 09:00 09/16/20 18:34 DC 09/16/20 08:49 Valproic Acid (Depakene) 750 mg BID PO 09/08/20 21:00 09/19/20 19:49 Haloperidol (Haldol) 0.5 mg HS PO 09/17/20 21:00 09/19/20 14:00 DC 09/18/20 20:10 Mirtazapine (Remeron) 7.5 mg QHS PO 09/18/20 21:00 09/19/20 19:52 Risperidone (RisperDAL) 1 mg 1X ONCE PO 09/19/20 14:00 09/19/20 14:06 DC 09/19/20 14:44 Risperidone (RisperDAL) 1.5 mg DAILY PO 09/20/20 09:00 Current Medications Medications (Trade) Dose Ordered Sig/Annika Route PRN Reason Start Time Stop Time Status Last Admin Dose Admin Risperidone (RisperDAL) 1 mg 1X ONCE PO 09/19/20 14:00 09/19/20 14:06 DC 09/19/20 14:44 I have reviewed the current psychotropics carefully including drug interactions. Risk benefit ratio favors no change other than as noted in my dictated progress note. Diagnosis: Problems: (1) Impulse control disorder, unspecified (2) Anxiety disorder, unspecified (3) Bipolar disorder, curr episode mixed, severe, with psychotic features JABARI ARBOLEDA MD Sep 19, 2020 22:05
[2020-09-20] MEDS: LEVOTHYROXINE 125 MCG TABLET PO SCH (05:20)
[2020-09-20 05:44] VITALS: BP 166/74
--- NOTE | 2020-09-20 06:34 | PDOC ---
Exam Note: [facility] Note: This note is a late entry for 09/19/2020 covers elements not covered in my initial note. Subjective: The patient was reviewed in the morning of 09/19/2020 for a treatment team meeting with Karlee Perdue, Melvi Teague and Mary (delinquency prevention social worker), Candice, activity therapy and Cecilia BOND, discussed and reviewed the chart. The patients sleeping average is 4-1/4 hours. She slept 5-1/2 hours previous night. Appetite is 90%. She continues to be somewhat angry, irritable, refusing medications. Yesterday she took her Depakene but today she threw her meds at the nursing staff including the water cup. They were presented in but took them later. I met with her in her room this evening. She continues to force herself to vomit at times, swinging at staff at one point. Review of Systems: Ambulation impaired with walker. No CV, , eye, ENT system symptoms on review. Mental Status Exam: The patient is awake, alert, and oriented. Speech difficult to understand, somewhat rapid at times. Abstraction is fair. Computation impaired. Language function is intact. Attention span is short. Mood and affect is somewhat withdrawn. No suicidal or homicidal ideation. Laboratory Data: Reviewed. Impression: Bipolar disorder mixed with psychotic features in partial remission. Anxiety disorder unspecified. Impulse control disorder unspecified. Plan: Given the patients ongoing psychotic symptoms and mood vacillations we will go ahead and change the Haldol to Risperdal 1 mg a day for one day and then 1.5 mg a day after that. Make further adjustments as clinically indicated. Valproic acid level is therapeutic at 56. Assessment: Vital Signs/I&O: Vital Signs Date Time Temp Pulse Resp B/P (MAP) Pulse Ox O2 Delivery O2 Flow Rate FiO2 09/20/20 05:44 97.7 89 18 166/74 (104) 96 09/15/20 06:24 Room Air I & O 09/19/20 09/19/20 09/20/20 15:00 23:00 07:00 Intake Total 720 ml 480 ml Balance 720 ml 480 ml Labs: Laboratory Tests Test 09/19/20 07:46 Glucose (Fingerstick) 132 mg/dL (70-99) H Current Medications: Meds: Laboratory Tests Test 09/19/20 07:46 Glucose (Fingerstick) 132 mg/dL Current Medications Medications (Trade) Dose Ordered Sig/Annika Route PRN Reason Start Time Stop Time Status Last Admin Dose Admin Acetaminophen (Tylenol) 650 mg PRN Q6HRS PRN PO MILD PAIN / TEMP > 100.3'F 09/02/20 15:00 09/02/20 16:17 DC Multi-Ingredient Ointment (Analgesic [place]) 1 hui PRN QID PRN TP MUSCLE PAIN 09/02/20 15:00 Al Hydroxide/Mg Hydroxide (Mylanta Plus Xs) 15 ml PRN AFTMEALHC PRN PO DYSPEPSIA 09/02/20 15:00 09/02/20 16:28 DC Magnesium Hydroxide (Milk Of Magnesia) 2,400 mg PRN QHS PRN PO CONSTIPATION 09/02/20 15:00 Acetaminophen (Tylenol) 650 mg PRN Q4HRS PRN PO MILD PAIN / TEMP > 100.3'F 09/02/20 16:15 Albuterol Sulfate (Ventolin Hfa Inhaler) 2 puff BID INH 09/02/20 21:00 09/19/20 09:06 Amlodipine Besylate (Norvasc) 10 mg DAILY PO 09/03/20 09:00 09/19/20 09:05 Atenolol (Tenormin) 50 mg DAILY PO 09/03/20 09:00 09/19/20 09:08 Bupropion HCl (Wellbutrin Xl) 300 mg DAILY PO 09/03/20 09:00 09/19/20 09:04 Divalproex Sodium (Depakote Er) 1,500 mg QHS PO 09/02/20 21:00 09/08/20 20:12 DC 09/07/20 19:41 Docusate Sodium (Colace) 100 mg DAILY PO 09/03/20 09:00 09/19/20 09:06 Donepezil HCl (Aricept) 10 mg HS PO 09/02/20 21:00 09/19/20 19:54 Ferrous Sulfate (Feosol) 325 mg DAILY PO 09/03/20 09:00 09/19/20 09:06 Furosemide (Lasix) 40 mg DAILY PO 09/03/20 09:00 09/19/20 09:05 Guaifenesin (Mucinex Er) 1,200 mg BID PO 09/02/20 21:00 09/19/20 19:55 Hydralazine HCl (Apresoline) 25 mg TID PO 09/02/20 21:00 09/19/20 19:58 Levothyroxine Sodium (Synthroid) 125 mcg DAILY06 PO 09/03/20 06:00 09/20/20 05:20 Al Hydroxide/Mg Hydroxide (Mylanta Plus Xs) 30 ml PRN Q2HRS PRN PO DYSPEPSIA 09/02/20 16:15 Multi-Ingredient Ointment (Analgesic [place]) 1 hui PRN QID PRN TP MUSCLE PAIN 09/02/20 16:15 09/02/20 16:29 DC Montelukast Sodium (Singulair) 10 mg HS PO 09/02/20 21:00 09/19/20 19:56 Olanzapine (ZyPREXA ZYDIS) 2.5 mg PRN Q2HRS PRN PO psychosis/agitation 09/02/20 16:15 09/02/20 16:20 DC Pantoprazole Sodium (Protonix) 40 mg HS PO 09/02/20 21:00 09/19/20 19:55 Polyethylene Glycol (miraLAX) 17 gm DAILY PO 09/03/20 09:00 09/19/20 09:02 Artificial Tears (Artificial Tears) 2 drop BID OU 09/02/20 21:00 09/19/20 09:07 Risperidone (RisperDAL) 0.25 mg QHS PO 09/02/20 21:00 09/07/20 16:47 DC 09/06/20 20:54 Risperidone (RisperDAL) 1 mg QHS PO 09/02/20 21:00 09/07/20 16:47 DC 09/06/20 20:55 Trazodone HCl (Desyrel) 50 mg HS PO 09/02/20 21:00 09/19/20 19:53 Trazodone HCl (Desyrel) 50 mg PRN QHS PRN PO insomnia 09/02/20 16:15 Calcium/Vitamin D (Oscal D 500mg/ 200uts) 1 tab DAILY PO 09/03/20 09:00 09/19/20 09:04 Fluticasone Propionate (Flonase) 2 spray DAILY NS 09/03/20 09:00 09/19/20 09:07 Magnesium Chloride (Mag Delay) 64 mg DAILY PO 09/03/20 09:00 09/19/20 09:05 Non-Formulary Medication (Magnesium Hydroxide (Milk Of Magnesia)) 2,400 mg PRN QHS PRN PO CONSTIPATION 09/02/20 16:15 09/02/20 16:32 DC Metformin HCl (Glucophage) 1,000 mg DAILYWBKFT PO 09/03/20 08:00 09/19/20 09:06 Multivitamins/ Calcium (Thera-M Plus) 1 tab DAILY PO 09/03/20 09:00 09/19/20 09:06 Oxybutynin Chloride (Ditropan) 5 mg QHS PO 09/02/20 21:00 09/19/20 19:55 Guaifenesin (Robitussin) 100 mg PRN Q2HRS PRN PO COUGH 09/02/20 16:30 Hydrocortisone Acetate (Anucort-Hc) 25 mg PRN DAILY PRN RC RECTAL PAIN 09/02/20 16:30 Haloperidol (Haldol) 0.5 mg DAILY PO 09/08/20 09:00 09/16/20 18:34 DC 09/16/20 08:49 Valproic Acid (Depakene) 750 mg BID PO 09/08/20 21:00 09/19/20 19:49 Haloperidol (Haldol) 0.5 mg HS PO 09/17/20 21:00 09/19/20 14:00 DC 09/18/20 20:10 Mirtazapine (Remeron) 7.5 mg QHS PO 09/18/20 21:00 09/19/20 19:52 Risperidone (RisperDAL) 1 mg 1X ONCE PO 09/19/20 14:00 09/19/20 14:06 DC 09/19/20 14:44 Risperidone (RisperDAL) 1.5 mg DAILY PO 09/20/20 09:00 Current Medications Medications (Trade) Dose Ordered Sig/Annika Route PRN Reason Start Time Stop Time Status Last Admin Dose Admin Risperidone (RisperDAL) 1 mg 1X ONCE PO 09/19/20 14:00 09/19/20 14:06 DC 09/19/20 14:44 I have reviewed the current psychotropics carefully including drug interactions. Risk benefit ratio favors no change other than as noted in my dictated progress note. Diagnosis: Problems: (1) Impulse control disorder, unspecified (2) Anxiety disorder, unspecified (3) Bipolar disorder, curr episode mixed, severe, with psychotic features JABARI ARBOLEDA MD Sep 20, 2020 06:34
[2020-09-20] MEDS: CALCIUM CARB/VIT D3 500/200 TABLET PO SCH (07:44)
[2020-09-20] MEDS: MAGNESIUM CHLORIDE ER 64 MG TABLET.ER PO SCH (07:44)
[2020-09-20] MEDS: metFORMIN 500 MG TABLET PO SCH (07:45)
[2020-09-20] MEDS: ATENOLOL 50 MG TABLET PO SCH (07:45)
[2020-09-20] MEDS: FERROUS SULFATE 325 MG TABLET. PO SCH (07:45)
[2020-09-20] MEDS: amLODIPine BESYLATE 10 MG TABLET PO SCH (07:45)
[2020-09-20] MEDS: MULTIVITAMIN with MINERAL TABLET. PO SCH (07:45)
[2020-09-20] MEDS: buPROPion XL 300 MG TAB.ER.24H. PO SCH (07:45)
[2020-09-20] MEDS: hydrALAZINE 25 MG TABLET PO SCH ×3 (07:45→20:56)
[2020-09-20] MEDS: DOCUSATE SODIUM 100 MG CAPSULE PO SCH (07:45)
[2020-09-20] MEDS: POLYETHYLENE GLYCOL 3350 17 GM PACKET. PO SCH (07:46)
[2020-09-20] MEDS: VALPROATE ACID 250 MG/5 ML ORAL SOLUTION PO SCH ×2 (07:46→20:56)
[2020-09-20] MEDS: FUROSEMIDE 40 MG TABLET PO SCH (07:46)
[2020-09-20] MEDS: risperiDONE 1 MG TABLET. PO SCH (07:49)
[2020-09-20] MEDS: ALBUTEROL SULFATE 8GM INHALER. INH SCH ×2 (07:49→20:56)
[2020-09-20] MEDS: FLUTICASONE 50MCG/NASAL SPRAY 16GM BOTTLE. NS SCH (07:49)
[2020-09-20] MEDS: POLYVINYL ALCOHOL 1.4% OPHTH SOLUTION 15ML BOTTLE. OU SCH ×2 (07:50→20:57)
[2020-09-20 16:10] VITALS: BP 140/74
[2020-09-20] MEDS: MONTELUKAST 10 MG TABLET. PO SCH (20:56)
[2020-09-20] MEDS: PANTOPRAZOLE 40 MG TABLET. PO SCH (20:56)
[2020-09-20] MEDS: MIRTAZAPINE 7.5 MG TABLET. PO SCH (20:56)
[2020-09-20] MEDS: DONEPEZIL HCL 10 MG TABLET PO SCH (20:56)
[2020-09-20] MEDS: traZODone 50 MG TABLET. PO SCH (20:56)
[2020-09-20] MEDS: OXYBUTYNIN CHLORIDE 5 MG TABLET PO SCH (20:56)
--- NOTE | 2020-09-20 22:04 | PDOC ---
Exam Note: [facility] Note: Please also refer to the separate dictated note~for this date of service dictated separately.~Patient seen individually. Discussed the patient with Nursing staff reviewed the chart.~Reviewed interim history and current functioning. Reviewed vital signs,~Labs/ Radiology~and current medications noted below. Continue current treatment with the changes noted in the dictated addendum note Assessment: Vital Signs/I&O: Vital Signs Date Time Temp Pulse Resp B/P (MAP) Pulse Ox O2 Delivery O2 Flow Rate FiO2 09/20/20 20:56 78 140/74 09/20/20 16:10 97.7 18 97 Room Air I & O 09/19/20 09/19/20 09/20/20 14:59 22:59 06:59 Intake Total 720 ml 480 ml Balance 720 ml 480 ml Labs: Laboratory Tests Test 09/20/20 07:55 Glucose (Fingerstick) 92 mg/dL (70-99) Current Medications: Meds: Laboratory Tests Test 09/20/20 07:55 Glucose (Fingerstick) 92 mg/dL Current Medications Medications (Trade) Dose Ordered Sig/Annika Route PRN Reason Start Time Stop Time Status Last Admin Dose Admin Acetaminophen (Tylenol) 650 mg PRN Q6HRS PRN PO MILD PAIN / TEMP > 100.3'F 09/02/20 15:00 09/02/20 16:17 DC Multi-Ingredient Ointment (Analgesic [place]) 1 hui PRN QID PRN TP MUSCLE PAIN 09/02/20 15:00 Al Hydroxide/Mg Hydroxide (Mylanta Plus Xs) 15 ml PRN AFTMEALHC PRN PO DYSPEPSIA 09/02/20 15:00 09/02/20 16:28 DC Magnesium Hydroxide (Milk Of Magnesia) 2,400 mg PRN QHS PRN PO CONSTIPATION 09/02/20 15:00 Acetaminophen (Tylenol) 650 mg PRN Q4HRS PRN PO MILD PAIN / TEMP > 100.3'F 09/02/20 16:15 Albuterol Sulfate (Ventolin Hfa Inhaler) 2 puff BID INH 09/02/20 21:00 09/20/20 20:56 Amlodipine Besylate (Norvasc) 10 mg DAILY PO 09/03/20 09:00 09/20/20 07:45 Atenolol (Tenormin) 50 mg DAILY PO 09/03/20 09:00 09/20/20 07:45 Bupropion HCl (Wellbutrin Xl) 300 mg DAILY PO 09/03/20 09:00 09/20/20 07:45 Divalproex Sodium (Depakote Er) 1,500 mg QHS PO 09/02/20 21:00 09/08/20 20:12 DC 09/07/20 19:41 Docusate Sodium (Colace) 100 mg DAILY PO 09/03/20 09:00 09/20/20 07:45 Donepezil HCl (Aricept) 10 mg HS PO 09/02/20 21:00 09/20/20 20:56 Ferrous Sulfate (Feosol) 325 mg DAILY PO 09/03/20 09:00 09/20/20 07:45 Furosemide (Lasix) 40 mg DAILY PO 09/03/20 09:00 09/20/20 07:46 Guaifenesin (Mucinex Er) 1,200 mg BID PO 09/02/20 21:00 09/20/20 20:56 Hydralazine HCl (Apresoline) 25 mg TID PO 09/02/20 21:00 09/20/20 20:56 Levothyroxine Sodium (Synthroid) 125 mcg DAILY06 PO 09/03/20 06:00 09/20/20 05:20 Al Hydroxide/Mg Hydroxide (Mylanta Plus Xs) 30 ml PRN Q2HRS PRN PO DYSPEPSIA 09/02/20 16:15 Multi-Ingredient Ointment (Analgesic [place]) 1 hui PRN QID PRN TP MUSCLE PAIN 09/02/20 16:15 09/02/20 16:29 DC Montelukast Sodium (Singulair) 10 mg HS PO 09/02/20 21:00 09/20/20 20:56 Olanzapine (ZyPREXA ZYDIS) 2.5 mg PRN Q2HRS PRN PO psychosis/agitation 09/02/20 16:15 09/02/20 16:20 DC Pantoprazole Sodium (Protonix) 40 mg HS PO 09/02/20 21:00 09/20/20 20:56 Polyethylene Glycol (miraLAX) 17 gm DAILY PO 09/03/20 09:00 09/20/20 07:46 Artificial Tears (Artificial Tears) 2 drop BID OU 09/02/20 21:00 09/20/20 20:57 Risperidone (RisperDAL) 0.25 mg QHS PO 09/02/20 21:00 09/07/20 16:47 DC 09/06/20 20:54 Risperidone (RisperDAL) 1 mg QHS PO 09/02/20 21:00 09/07/20 16:47 DC 09/06/20 20:55 Trazodone HCl (Desyrel) 50 mg HS PO 09/02/20 21:00 09/20/20 20:56 Trazodone HCl (Desyrel) 50 mg PRN QHS PRN PO insomnia 09/02/20 16:15 Calcium/Vitamin D (Oscal D 500mg/ 200uts) 1 tab DAILY PO 09/03/20 09:00 09/20/20 07:44 Fluticasone Propionate (Flonase) 2 spray DAILY NS 09/03/20 09:00 09/20/20 07:49 Magnesium Chloride (Mag Delay) 64 mg DAILY PO 09/03/20 09:00 09/20/20 07:44 Non-Formulary Medication (Magnesium Hydroxide (Milk Of Magnesia)) 2,400 mg PRN QHS PRN PO CONSTIPATION 09/02/20 16:15 09/02/20 16:32 DC Metformin HCl (Glucophage) 1,000 mg DAILYWBKFT PO 09/03/20 08:00 09/20/20 07:45 Multivitamins/ Calcium (Thera-M Plus) 1 tab DAILY PO 09/03/20 09:00 09/20/20 07:45 Oxybutynin Chloride (Ditropan) 5 mg QHS PO 09/02/20 21:00 09/20/20 20:56 Guaifenesin (Robitussin) 100 mg PRN Q2HRS PRN PO COUGH 09/02/20 16:30 Hydrocortisone Acetate (Anucort-Hc) 25 mg PRN DAILY PRN RC RECTAL PAIN 09/02/20 16:30 Haloperidol (Haldol) 0.5 mg DAILY PO 09/08/20 09:00 09/16/20 18:34 DC 09/16/20 08:49 Valproic Acid (Depakene) 750 mg BID PO 09/08/20 21:00 09/20/20 20:56 Haloperidol (Haldol) 0.5 mg HS PO 09/17/20 21:00 09/19/20 14:00 DC 09/18/20 20:10 Mirtazapine (Remeron) 7.5 mg QHS PO 09/18/20 21:00 09/20/20 20:56 Risperidone (RisperDAL) 1 mg 1X ONCE PO 09/19/20 14:00 09/19/20 14:06 DC 09/19/20 14:44 Risperidone (RisperDAL) 1.5 mg DAILY PO 09/20/20 09:00 09/20/20 07:49 Current Medications Medications (Trade) Dose Ordered Sig/Annika Route PRN Reason Start Time Stop Time Status Last Admin Dose Admin Risperidone (RisperDAL) 1.5 mg DAILY PO 09/20/20 09:00 09/20/20 07:49 I have reviewed the current psychotropics carefully including drug interactions. Risk benefit ratio favors no change other than as noted in my dictated progress note. Diagnosis: Problems: (1) Impulse control disorder, unspecified (2) Anxiety disorder, unspecified (3) Bipolar disorder, curr episode mixed, severe, with psychotic features JABARI ARBOLEDA MD Sep 20, 2020 22:04
[2020-09-21] MEDS: LEVOTHYROXINE 125 MCG TABLET PO SCH (06:00)
[2020-09-21 06:27] VITALS: BP 154/53
--- NOTE | 2020-09-21 07:26 | PDOC ---
Exam Note: [facility] Note: This note is a late entry for 09/20/2020 covers elements not covered in my initial note. Subjective: The patient was seen individually in the evening of 09/20/2020 with Geneva BOND, discussed and reviewed the chart. She slept 6-1/2 hours previous night. She has been refusing medications at times. I processed this with her at some length. I met with her in the dayroom. She was little more interactive, still anxious, labile and per nursing staff she is gamey. Review of Systems: Ambulation impaired with walker. No CV, , eye, ENT system symptoms on review. Mental Status Exam: The patient is awake, alert, and oriented. Speech rapid. Abstraction is fair. Computation impaired. Language function is intact. Attention span is short. Mood and affect is somewhat withdrawn. No suicidal or homicidal ideation. Laboratory Data: Reviewed. Impression: Bipolar disorder mixed with psychotic features in partial remission. Anxiety disorder unspecified. Impulse control disorder unspecified. Plan: We have changed the patients antipsychotics to Risperdal currently 1.5 mg daily. We will give it another day or two and see how she responds to this before making any changes. Assessment: Vital Signs/I&O: Vital Signs Date Time Temp Pulse Resp B/P (MAP) Pulse Ox O2 Delivery O2 Flow Rate FiO2 09/21/20 06:27 97.2 89 20 154/53 (86) 97 09/20/20 16:10 Room Air I & O 09/20/20 09/20/20 09/21/20 15:00 23:00 07:00 Intake Total 600 ml 480 ml Balance 600 ml 480 ml Labs: Laboratory Tests Test 09/20/20 07:55 Glucose (Fingerstick) 92 mg/dL (70-99) Current Medications: Meds: Laboratory Tests Test 09/20/20 07:55 Glucose (Fingerstick) 92 mg/dL Current Medications Medications (Trade) Dose Ordered Sig/Annika Route PRN Reason Start Time Stop Time Status Last Admin Dose Admin Acetaminophen (Tylenol) 650 mg PRN Q6HRS PRN PO MILD PAIN / TEMP > 100.3'F 09/02/20 15:00 09/02/20 16:17 DC Multi-Ingredient Ointment (Analgesic [place]) 1 hui PRN QID PRN TP MUSCLE PAIN 09/02/20 15:00 Al Hydroxide/Mg Hydroxide (Mylanta Plus Xs) 15 ml PRN AFTMEALHC PRN PO DYSPEPSIA 09/02/20 15:00 09/02/20 16:28 DC Magnesium Hydroxide (Milk Of Magnesia) 2,400 mg PRN QHS PRN PO CONSTIPATION 09/02/20 15:00 Acetaminophen (Tylenol) 650 mg PRN Q4HRS PRN PO MILD PAIN / TEMP > 100.3'F 09/02/20 16:15 Albuterol Sulfate (Ventolin Hfa Inhaler) 2 puff BID INH 09/02/20 21:00 09/20/20 20:56 Amlodipine Besylate (Norvasc) 10 mg DAILY PO 09/03/20 09:00 09/20/20 07:45 Atenolol (Tenormin) 50 mg DAILY PO 09/03/20 09:00 09/20/20 07:45 Bupropion HCl (Wellbutrin Xl) 300 mg DAILY PO 09/03/20 09:00 09/20/20 07:45 Divalproex Sodium (Depakote Er) 1,500 mg QHS PO 09/02/20 21:00 09/08/20 20:12 DC 09/07/20 19:41 Docusate Sodium (Colace) 100 mg DAILY PO 09/03/20 09:00 09/20/20 07:45 Donepezil HCl (Aricept) 10 mg HS PO 09/02/20 21:00 09/20/20 20:56 Ferrous Sulfate (Feosol) 325 mg DAILY PO 09/03/20 09:00 09/20/20 07:45 Furosemide (Lasix) 40 mg DAILY PO 09/03/20 09:00 09/20/20 07:46 Guaifenesin (Mucinex Er) 1,200 mg BID PO 09/02/20 21:00 09/20/20 20:56 Hydralazine HCl (Apresoline) 25 mg TID PO 09/02/20 21:00 09/20/20 20:56 Levothyroxine Sodium (Synthroid) 125 mcg DAILY06 PO 09/03/20 06:00 09/21/20 06:00 Al Hydroxide/Mg Hydroxide (Mylanta Plus Xs) 30 ml PRN Q2HRS PRN PO DYSPEPSIA 09/02/20 16:15 Multi-Ingredient Ointment (Analgesic [place]) 1 hui PRN QID PRN TP MUSCLE PAIN 09/02/20 16:15 09/02/20 16:29 DC Montelukast Sodium (Singulair) 10 mg HS PO 09/02/20 21:00 09/20/20 20:56 Olanzapine (ZyPREXA ZYDIS) 2.5 mg PRN Q2HRS PRN PO psychosis/agitation 09/02/20 16:15 09/02/20 16:20 DC Pantoprazole Sodium (Protonix) 40 mg HS PO 09/02/20 21:00 09/20/20 20:56 Polyethylene Glycol (miraLAX) 17 gm DAILY PO 09/03/20 09:00 09/20/20 07:46 Artificial Tears (Artificial Tears) 2 drop BID OU 09/02/20 21:00 09/20/20 20:57 Risperidone (RisperDAL) 0.25 mg QHS PO 09/02/20 21:00 09/07/20 16:47 DC 09/06/20 20:54 Risperidone (RisperDAL) 1 mg QHS PO 09/02/20 21:00 09/07/20 16:47 DC 09/06/20 20:55 Trazodone HCl (Desyrel) 50 mg HS PO 09/02/20 21:00 09/20/20 20:56 Trazodone HCl (Desyrel) 50 mg PRN QHS PRN PO insomnia 09/02/20 16:15 Calcium/Vitamin D (Oscal D 500mg/ 200uts) 1 tab DAILY PO 09/03/20 09:00 09/20/20 07:44 Fluticasone Propionate (Flonase) 2 spray DAILY NS 09/03/20 09:00 09/20/20 07:49 Magnesium Chloride (Mag Delay) 64 mg DAILY PO 09/03/20 09:00 09/20/20 07:44 Non-Formulary Medication (Magnesium Hydroxide (Milk Of Magnesia)) 2,400 mg PRN QHS PRN PO CONSTIPATION 09/02/20 16:15 09/02/20 16:32 DC Metformin HCl (Glucophage) 1,000 mg DAILYWBKFT PO 09/03/20 08:00 09/20/20 07:45 Multivitamins/ Calcium (Thera-M Plus) 1 tab DAILY PO 09/03/20 09:00 09/20/20 07:45 Oxybutynin Chloride (Ditropan) 5 mg QHS PO 09/02/20 21:00 09/20/20 20:56 Guaifenesin (Robitussin) 100 mg PRN Q2HRS PRN PO COUGH 09/02/20 16:30 Hydrocortisone Acetate (Anucort-Hc) 25 mg PRN DAILY PRN RC RECTAL PAIN 09/02/20 16:30 Haloperidol (Haldol) 0.5 mg DAILY PO 09/08/20 09:00 09/16/20 18:34 DC 09/16/20 08:49 Valproic Acid (Depakene) 750 mg BID PO 09/08/20 21:00 09/20/20 20:56 Haloperidol (Haldol) 0.5 mg HS PO 09/17/20 21:00 09/19/20 14:00 DC 09/18/20 20:10 Mirtazapine (Remeron) 7.5 mg QHS PO 09/18/20 21:00 09/20/20 20:56 Risperidone (RisperDAL) 1 mg 1X ONCE PO 09/19/20 14:00 09/19/20 14:06 DC 09/19/20 14:44 Risperidone (RisperDAL) 1.5 mg DAILY PO 09/20/20 09:00 09/20/20 07:49 Current Medications Medications (Trade) Dose Ordered Sig/Annika Route PRN Reason Start Time Stop Time Status Last Admin Dose Admin Risperidone (RisperDAL) 1.5 mg DAILY PO 09/20/20 09:00 09/20/20 07:49 I have reviewed the current psychotropics carefully including drug interactions. Risk benefit ratio favors no change other than as noted in my dictated progress note. Diagnosis: Problems: (1) Impulse control disorder, unspecified (2) Anxiety disorder, unspecified (3) Bipolar disorder, curr episode mixed, severe, with psychotic features JABARI ARBOLEDA MD Sep 21, 2020 07:26
[2020-09-21] MEDS: buPROPion XL 300 MG TAB.ER.24H. PO SCH (08:27)
[2020-09-21] MEDS: risperiDONE 1 MG TABLET. PO SCH (08:28)
[2020-09-21] MEDS: VALPROATE ACID 250 MG/5 ML ORAL SOLUTION PO SCH ×2 (08:29→20:32)
[2020-09-21] MEDS: metFORMIN 500 MG TABLET PO SCH (08:30)
[2020-09-21] MEDS: hydrALAZINE 25 MG TABLET PO SCH ×3 (08:32→20:33)
[2020-09-21] MEDS: FUROSEMIDE 40 MG TABLET PO SCH (08:32)
[2020-09-21] MEDS: ATENOLOL 50 MG TABLET PO SCH (08:34)
[2020-09-21] MEDS: FLUTICASONE 50MCG/NASAL SPRAY 16GM BOTTLE. NS SCH (08:37)
[2020-09-21] MEDS: POLYVINYL ALCOHOL 1.4% OPHTH SOLUTION 15ML BOTTLE. OU SCH ×2 (08:37→20:32)
[2020-09-21] MEDS: MAGNESIUM CHLORIDE ER 64 MG TABLET.ER PO SCH (08:38)
[2020-09-21] MEDS: FERROUS SULFATE 325 MG TABLET. PO SCH (08:38)
[2020-09-21] MEDS: ALBUTEROL SULFATE 8GM INHALER. INH SCH ×2 (08:38→20:32)
[2020-09-21] MEDS: DOCUSATE SODIUM 100 MG CAPSULE PO SCH (08:38)
[2020-09-21] MEDS: MULTIVITAMIN with MINERAL TABLET. PO SCH (08:39)
[2020-09-21] MEDS: amLODIPine BESYLATE 10 MG TABLET PO SCH (08:39)
[2020-09-21] MEDS: CALCIUM CARB/VIT D3 500/200 TABLET PO SCH (08:39)
[2020-09-21] MEDS: POLYETHYLENE GLYCOL 3350 17 GM PACKET. PO SCH (08:39)
[2020-09-21 16:13] VITALS: BP 134/87
[2020-09-21] MEDS: traZODone 50 MG TABLET. PO SCH (20:33)
[2020-09-21] MEDS: DONEPEZIL HCL 10 MG TABLET PO SCH (20:33)
[2020-09-21] MEDS: MONTELUKAST 10 MG TABLET. PO SCH (20:33)
[2020-09-21] MEDS: PANTOPRAZOLE 40 MG TABLET. PO SCH (20:33)
[2020-09-21] MEDS: MIRTAZAPINE 7.5 MG TABLET. PO SCH (20:33)
[2020-09-21] MEDS: OXYBUTYNIN CHLORIDE 5 MG TABLET PO SCH (20:33)
--- NOTE | 2020-09-21 21:54 | PDOC ---
Exam Note: [facility] Note: Please also refer to the separate dictated note~for this date of service dictated separately.~Patient seen individually. Discussed the patient with Nursing staff reviewed the chart.~Reviewed interim history and current functioning. Reviewed vital signs,~Labs/ Radiology~and current medications noted below. Continue current treatment with the changes noted in the dictated addendum note Assessment: Vital Signs/I&O: Vital Signs Date Time Temp Pulse Resp B/P (MAP) Pulse Ox O2 Delivery O2 Flow Rate FiO2 09/21/20 20:33 62 134/87 09/21/20 16:13 97.9 20 93 Room Air I & O 09/20/20 09/20/20 09/21/20 14:59 22:59 06:59 Intake Total 600 ml 480 ml Balance 600 ml 480 ml Labs: Laboratory Tests Test 09/21/20 08:02 Glucose (Fingerstick) 106 mg/dL (70-99) H Current Medications: Meds: Laboratory Tests Test 09/21/20 08:02 Glucose (Fingerstick) 106 mg/dL Current Medications Medications (Trade) Dose Ordered Sig/Annika Route PRN Reason Start Time Stop Time Status Last Admin Dose Admin Acetaminophen (Tylenol) 650 mg PRN Q6HRS PRN PO MILD PAIN / TEMP > 100.3'F 09/02/20 15:00 09/02/20 16:17 DC Multi-Ingredient Ointment (Analgesic [place]) 1 hui PRN QID PRN TP MUSCLE PAIN 09/02/20 15:00 Al Hydroxide/Mg Hydroxide (Mylanta Plus Xs) 15 ml PRN AFTMEALHC PRN PO DYSPEPSIA 09/02/20 15:00 09/02/20 16:28 DC Magnesium Hydroxide (Milk Of Magnesia) 2,400 mg PRN QHS PRN PO CONSTIPATION 09/02/20 15:00 Acetaminophen (Tylenol) 650 mg PRN Q4HRS PRN PO MILD PAIN / TEMP > 100.3'F 09/02/20 16:15 Albuterol Sulfate (Ventolin Hfa Inhaler) 2 puff BID INH 09/02/20 21:00 09/21/20 20:32 Amlodipine Besylate (Norvasc) 10 mg DAILY PO 09/03/20 09:00 09/20/20 07:45 Atenolol (Tenormin) 50 mg DAILY PO 09/03/20 09:00 09/21/20 08:34 Bupropion HCl (Wellbutrin Xl) 300 mg DAILY PO 09/03/20 09:00 09/21/20 08:27 Divalproex Sodium (Depakote Er) 1,500 mg QHS PO 09/02/20 21:00 09/08/20 20:12 DC 09/07/20 19:41 Docusate Sodium (Colace) 100 mg DAILY PO 09/03/20 09:00 09/20/20 07:45 Donepezil HCl (Aricept) 10 mg HS PO 09/02/20 21:00 09/21/20 20:33 Ferrous Sulfate (Feosol) 325 mg DAILY PO 09/03/20 09:00 09/20/20 07:45 Furosemide (Lasix) 40 mg DAILY PO 09/03/20 09:00 09/21/20 08:32 Guaifenesin (Mucinex Er) 1,200 mg BID PO 09/02/20 21:00 09/21/20 20:33 Hydralazine HCl (Apresoline) 25 mg TID PO 09/02/20 21:00 09/21/20 20:33 Levothyroxine Sodium (Synthroid) 125 mcg DAILY06 PO 09/03/20 06:00 09/21/20 06:00 Al Hydroxide/Mg Hydroxide (Mylanta Plus Xs) 30 ml PRN Q2HRS PRN PO DYSPEPSIA 09/02/20 16:15 Multi-Ingredient Ointment (Analgesic [place]) 1 hui PRN QID PRN TP MUSCLE PAIN 09/02/20 16:15 09/02/20 16:29 DC Montelukast Sodium (Singulair) 10 mg HS PO 09/02/20 21:00 09/21/20 20:33 Olanzapine (ZyPREXA ZYDIS) 2.5 mg PRN Q2HRS PRN PO psychosis/agitation 09/02/20 16:15 09/02/20 16:20 DC Pantoprazole Sodium (Protonix) 40 mg HS PO 09/02/20 21:00 09/21/20 20:33 Polyethylene Glycol (miraLAX) 17 gm DAILY PO 09/03/20 09:00 09/20/20 07:46 Artificial Tears (Artificial Tears) 2 drop BID OU 09/02/20 21:00 09/21/20 20:32 Risperidone (RisperDAL) 0.25 mg QHS PO 09/02/20 21:00 09/07/20 16:47 DC 09/06/20 20:54 Risperidone (RisperDAL) 1 mg QHS PO 09/02/20 21:00 09/07/20 16:47 DC 09/06/20 20:55 Trazodone HCl (Desyrel) 50 mg HS PO 09/02/20 21:00 09/21/20 20:33 Trazodone HCl (Desyrel) 50 mg PRN QHS PRN PO insomnia 09/02/20 16:15 Calcium/Vitamin D (Oscal D 500mg/ 200uts) 1 tab DAILY PO 09/03/20 09:00 09/20/20 07:44 Fluticasone Propionate (Flonase) 2 spray DAILY NS 09/03/20 09:00 09/20/20 07:49 Magnesium Chloride (Mag Delay) 64 mg DAILY PO 09/03/20 09:00 09/20/20 07:44 Non-Formulary Medication (Magnesium Hydroxide (Milk Of Magnesia)) 2,400 mg PRN QHS PRN PO CONSTIPATION 09/02/20 16:15 09/02/20 16:32 DC Metformin HCl (Glucophage) 1,000 mg DAILYWBKFT PO 09/03/20 08:00 09/21/20 08:30 Multivitamins/ Calcium (Thera-M Plus) 1 tab DAILY PO 09/03/20 09:00 09/20/20 07:45 Oxybutynin Chloride (Ditropan) 5 mg QHS PO 09/02/20 21:00 09/21/20 20:33 Guaifenesin (Robitussin) 100 mg PRN Q2HRS PRN PO COUGH 09/02/20 16:30 Hydrocortisone Acetate (Anucort-Hc) 25 mg PRN DAILY PRN RC RECTAL PAIN 09/02/20 16:30 Haloperidol (Haldol) 0.5 mg DAILY PO 09/08/20 09:00 09/16/20 18:34 DC 09/16/20 08:49 Valproic Acid (Depakene) 750 mg BID PO 09/08/20 21:00 09/21/20 20:32 Haloperidol (Haldol) 0.5 mg HS PO 09/17/20 21:00 09/19/20 14:00 DC 09/18/20 20:10 Mirtazapine (Remeron) 7.5 mg QHS PO 09/18/20 21:00 09/21/20 20:33 Risperidone (RisperDAL) 1 mg 1X ONCE PO 09/19/20 14:00 09/19/20 14:06 DC 09/19/20 14:44 Risperidone (RisperDAL) 1.5 mg DAILY PO 09/20/20 09:00 09/21/20 08:28 I have reviewed the current psychotropics carefully including drug interactions. Risk benefit ratio favors no change other than as noted in my dictated progress note. Diagnosis: Problems: (1) Impulse control disorder, unspecified (2) Anxiety disorder, unspecified (3) Bipolar disorder, curr episode mixed, severe, with psychotic features JABARI ARBOLEDA MD Sep 21, 2020 21:54
[2020-09-22] MEDS: LEVOTHYROXINE 125 MCG TABLET PO SCH (05:20)
[2020-09-22 06:43] VITALS: BP 164/85
--- NOTE | 2020-09-22 07:32 | PDOC ---
Exam Note: [facility] Note: This note is a late entry for 09/21/2020 covers elements not covered in my initial note. Subjective: The patient was seen individually in the evening of 09/21/2020 with Glenn BOND, discussed and reviewed the chart. She slept 6 hours previous night. Overall the patient has been resistive to medications at times but not aggressive or disruptive. I met with her in the dayroom. She was verbal and interactive though not very forthcoming. Review of Systems: Ambulation impaired with walker. No CV, , eye, ENT system symptoms on review. Mental Status Exam: The patient is oriented to herself and situation. Speech has some latency, coherent. Often response is monosyllabic. Abstraction is fair. Computation impaired. Language function is intact. Mood and affect is somewhat withdrawn. Laboratory Data: Reviewed. Impression: Bipolar disorder mixed with psychotic features in partial remission. Anxiety disorder unspecified. Impulse control disorder unspecified. Plan: Continue the patient on his current psychotropics mentioned in my initial note. We will adjust further as clinically indicated. Assessment: Vital Signs/I&O: Vital Signs Date Time Temp Pulse Resp B/P (MAP) Pulse Ox O2 Delivery O2 Flow Rate FiO2 09/22/20 06:43 97.8 62 17 164/85 (111) 95 09/21/20 16:13 Room Air I & O 09/21/20 09/21/20 09/22/20 15:00 23:00 07:00 Intake Total 600 ml 480 ml Balance 600 ml 480 ml Labs: Laboratory Tests Test 09/21/20 08:02 09/22/20 07:28 Glucose (Fingerstick) 106 mg/dL (70-99) H 92 mg/dL (70-99) Current Medications: Meds: Laboratory Tests Test 09/21/20 08:02 09/22/20 07:28 Glucose (Fingerstick) 106 mg/dL 92 mg/dL Current Medications Medications (Trade) Dose Ordered Sig/Annika Route PRN Reason Start Time Stop Time Status Last Admin Dose Admin Acetaminophen (Tylenol) 650 mg PRN Q6HRS PRN PO MILD PAIN / TEMP > 100.3'F 09/02/20 15:00 09/02/20 16:17 DC Multi-Ingredient Ointment (Analgesic [place]) 1 hui PRN QID PRN TP MUSCLE PAIN 09/02/20 15:00 Al Hydroxide/Mg Hydroxide (Mylanta Plus Xs) 15 ml PRN AFTMEALHC PRN PO DYSPEPSIA 09/02/20 15:00 09/02/20 16:28 DC Magnesium Hydroxide (Milk Of Magnesia) 2,400 mg PRN QHS PRN PO CONSTIPATION 09/02/20 15:00 Acetaminophen (Tylenol) 650 mg PRN Q4HRS PRN PO MILD PAIN / TEMP > 100.3'F 09/02/20 16:15 Albuterol Sulfate (Ventolin Hfa Inhaler) 2 puff BID INH 09/02/20 21:00 09/21/20 20:32 Amlodipine Besylate (Norvasc) 10 mg DAILY PO 09/03/20 09:00 09/20/20 07:45 Atenolol (Tenormin) 50 mg DAILY PO 09/03/20 09:00 09/21/20 08:34 Bupropion HCl (Wellbutrin Xl) 300 mg DAILY PO 09/03/20 09:00 09/21/20 08:27 Divalproex Sodium (Depakote Er) 1,500 mg QHS PO 09/02/20 21:00 09/08/20 20:12 DC 09/07/20 19:41 Docusate Sodium (Colace) 100 mg DAILY PO 09/03/20 09:00 09/20/20 07:45 Donepezil HCl (Aricept) 10 mg HS PO 09/02/20 21:00 09/21/20 20:33 Ferrous Sulfate (Feosol) 325 mg DAILY PO 09/03/20 09:00 09/20/20 07:45 Furosemide (Lasix) 40 mg DAILY PO 09/03/20 09:00 09/21/20 08:32 Guaifenesin (Mucinex Er) 1,200 mg BID PO 09/02/20 21:00 09/21/20 20:33 Hydralazine HCl (Apresoline) 25 mg TID PO 09/02/20 21:00 09/21/20 20:33 Levothyroxine Sodium (Synthroid) 125 mcg DAILY06 PO 09/03/20 06:00 09/22/20 05:20 Al Hydroxide/Mg Hydroxide (Mylanta Plus Xs) 30 ml PRN Q2HRS PRN PO DYSPEPSIA 09/02/20 16:15 Multi-Ingredient Ointment (Analgesic [place]) 1 hui PRN QID PRN TP MUSCLE PAIN 09/02/20 16:15 09/02/20 16:29 DC Montelukast Sodium (Singulair) 10 mg HS PO 09/02/20 21:00 09/21/20 20:33 Olanzapine (ZyPREXA ZYDIS) 2.5 mg PRN Q2HRS PRN PO psychosis/agitation 09/02/20 16:15 09/02/20 16:20 DC Pantoprazole Sodium (Protonix) 40 mg HS PO 09/02/20 21:00 09/21/20 20:33 Polyethylene Glycol (miraLAX) 17 gm DAILY PO 09/03/20 09:00 09/20/20 07:46 Artificial Tears (Artificial Tears) 2 drop BID OU 09/02/20 21:00 09/21/20 20:32 Risperidone (RisperDAL) 0.25 mg QHS PO 09/02/20 21:00 09/07/20 16:47 DC 09/06/20 20:54 Risperidone (RisperDAL) 1 mg QHS PO 09/02/20 21:00 09/07/20 16:47 DC 09/06/20 20:55 Trazodone HCl (Desyrel) 50 mg HS PO 09/02/20 21:00 09/21/20 20:33 Trazodone HCl (Desyrel) 50 mg PRN QHS PRN PO insomnia 09/02/20 16:15 Calcium/Vitamin D (Oscal D 500mg/ 200uts) 1 tab DAILY PO 09/03/20 09:00 09/20/20 07:44 Fluticasone Propionate (Flonase) 2 spray DAILY NS 09/03/20 09:00 09/20/20 07:49 Magnesium Chloride (Mag Delay) 64 mg DAILY PO 09/03/20 09:00 09/20/20 07:44 Non-Formulary Medication (Magnesium Hydroxide (Milk Of Magnesia)) 2,400 mg PRN QHS PRN PO CONSTIPATION 09/02/20 16:15 09/02/20 16:32 DC Metformin HCl (Glucophage) 1,000 mg DAILYWBKFT PO 09/03/20 08:00 09/21/20 08:30 Multivitamins/ Calcium (Thera-M Plus) 1 tab DAILY PO 09/03/20 09:00 09/20/20 07:45 Oxybutynin Chloride (Ditropan) 5 mg QHS PO 09/02/20 21:00 09/21/20 20:33 Guaifenesin (Robitussin) 100 mg PRN Q2HRS PRN PO COUGH 09/02/20 16:30 Hydrocortisone Acetate (Anucort-Hc) 25 mg PRN DAILY PRN RC RECTAL PAIN 09/02/20 16:30 Haloperidol (Haldol) 0.5 mg DAILY PO 09/08/20 09:00 09/16/20 18:34 DC 09/16/20 08:49 Valproic Acid (Depakene) 750 mg BID PO 09/08/20 21:00 09/21/20 20:32 Haloperidol (Haldol) 0.5 mg HS PO 09/17/20 21:00 09/19/20 14:00 DC 09/18/20 20:10 Mirtazapine (Remeron) 7.5 mg QHS PO 09/18/20 21:00 09/21/20 20:33 Risperidone (RisperDAL) 1 mg 1X ONCE PO 09/19/20 14:00 09/19/20 14:06 DC 09/19/20 14:44 Risperidone (RisperDAL) 1.5 mg DAILY PO 09/20/20 09:00 09/21/20 08:28 I have reviewed the current psychotropics carefully including drug interactions. Risk benefit ratio favors no change other than as noted in my dictated progress note. Diagnosis: Problems: (1) Impulse control disorder, unspecified (2) Anxiety disorder, unspecified (3) Bipolar disorder, curr episode mixed, severe, with psychotic features JABARI ARBOLEDA MD Sep 22, 2020 07:32
[2020-09-22] MEDS: ALBUTEROL SULFATE 8GM INHALER. INH SCH ×2 (08:39→20:28)
[2020-09-22] MEDS: FLUTICASONE 50MCG/NASAL SPRAY 16GM BOTTLE. NS SCH (08:39)
[2020-09-22] MEDS: POLYVINYL ALCOHOL 1.4% OPHTH SOLUTION 15ML BOTTLE. OU SCH ×2 (08:40→20:28)
[2020-09-22] MEDS: amLODIPine BESYLATE 10 MG TABLET PO SCH (08:41)
[2020-09-22] MEDS: FERROUS SULFATE 325 MG TABLET. PO SCH ×2 (08:41→14:48)
[2020-09-22] MEDS: VALPROATE ACID 250 MG/5 ML ORAL SOLUTION PO SCH ×2 (08:41→20:28)
[2020-09-22] MEDS: MULTIVITAMIN with MINERAL TABLET. PO SCH ×2 (08:42→14:49)
[2020-09-22] MEDS: ATENOLOL 50 MG TABLET PO SCH (08:42)
[2020-09-22] MEDS: CALCIUM CARB/VIT D3 500/200 TABLET PO SCH ×2 (08:42→14:49)
[2020-09-22] MEDS: buPROPion XL 300 MG TAB.ER.24H. PO SCH (08:42)
[2020-09-22] MEDS: DOCUSATE SODIUM 100 MG CAPSULE PO SCH ×2 (08:42→14:48)
[2020-09-22] MEDS: MAGNESIUM CHLORIDE ER 64 MG TABLET.ER PO SCH ×2 (08:42→14:48)
[2020-09-22] MEDS: metFORMIN 500 MG TABLET PO SCH (08:42)
[2020-09-22] MEDS: FUROSEMIDE 40 MG TABLET PO SCH (08:42)
[2020-09-22] MEDS: risperiDONE 1 MG TABLET. PO SCH (08:43)
[2020-09-22] MEDS: hydrALAZINE 25 MG TABLET PO SCH ×3 (08:49→20:29)
[2020-09-22] MEDS: POLYETHYLENE GLYCOL 3350 17 GM PACKET. PO SCH (08:49)
[2020-09-22 16:06] VITALS: BP 130/87
[2020-09-22] MEDS: MONTELUKAST 10 MG TABLET. PO SCH (20:28)
[2020-09-22] MEDS: DONEPEZIL HCL 10 MG TABLET PO SCH (20:29)
[2020-09-22] MEDS: PANTOPRAZOLE 40 MG TABLET. PO SCH (20:29)
[2020-09-22] MEDS: MIRTAZAPINE 7.5 MG TABLET. PO SCH (20:29)
[2020-09-22] MEDS: traZODone 50 MG TABLET. PO SCH (20:29)
[2020-09-22] MEDS: OXYBUTYNIN CHLORIDE 5 MG TABLET PO SCH (20:29)
--- NOTE | 2020-09-22 22:01 | PDOC ---
Exam Note: [facility] Note: Please also refer to the separate dictated note~for this date of service dictated separately.~Patient seen individually. Discussed the patient with Nursing staff reviewed the chart.~Reviewed interim history and current functioning. Reviewed vital signs,~Labs/ Radiology~and current medications noted below. Continue current treatment with the changes noted in the dictated addendum note Assessment: Vital Signs/I&O: Vital Signs Date Time Temp Pulse Resp B/P (MAP) Pulse Ox O2 Delivery O2 Flow Rate FiO2 09/22/20 20:29 61 130/87 09/22/20 16:06 97.2 17 97 09/21/20 16:13 Room Air I & O 09/21/20 09/21/20 09/22/20 15:00 23:00 07:00 Intake Total 600 ml 480 ml Balance 600 ml 480 ml Labs: Laboratory Tests Test 09/22/20 07:28 Glucose (Fingerstick) 92 mg/dL (70-99) Current Medications: Meds: Current Medications Medications (Trade) Dose Ordered Sig/Annika Route PRN Reason Start Time Stop Time Status Last Admin Dose Admin Mirtazapine (Remeron) 15 mg QHS PO 09/22/20 21:00 09/22/20 20:29 I have reviewed the current psychotropics carefully including drug interactions. Risk benefit ratio favors no change other than as noted in my dictated progress note. Diagnosis: Problems: (1) Impulse control disorder, unspecified (2) Anxiety disorder, unspecified (3) Bipolar disorder, curr episode mixed, severe, with psychotic features JABARI ARBOLEDA MD Sep 22, 2020 22:01
[2020-09-23] MEDS: LEVOTHYROXINE 125 MCG TABLET PO SCH (05:38)
[2020-09-23 06:09] LABS: BASO % 1 % (0-3); EOS # 0.2 x10^3/uL (0.0-0.7); EOS % 3 % (0-3); HEMATOCRIT 38.1 % (36.0-47.0); HEMOGLOBIN 12.5 g/dL (12.0-15.5); LYMPH # 2.3 x10^3/uL (1.0-4.8); LYMPH % 34 % (24-48); MEAN CORPUSCULAR HEMOGLOBIN 30 pg (25-35); MEAN CORPUSCULAR HGB CONC 33 g/dL (31-37); MEAN CORPUSCULAR VOLUME 92 fL (79-100); MONO % 15 % (0-9); NEUT # 3.2 x10^3uL (1.8-7.7); NEUT % 47 % (31-73); PLATELET COUNT 238 x10^3/uL (140-400); RED BLOOD COUNT 4.14 x10^6/uL (3.50-5.40); RED CELL DISTRIBUTION WIDTH 16.3 % (11.5-14.5); WHITE BLOOD COUNT 6.8 x10^3/uL (4.0-11.0)
[2020-09-23 06:24] VITALS: BP 163/86
[2020-09-23 06:28] LABS: ALBUMIN 3.2 g/dL (3.4-5.0); ALBUMIN/GLOBULIN RATIO 0.9 (1.0-1.7); CALCIUM 9.2 mg/dL (8.5-10.1); CREATININE 1.5 mg/dL (0.6-1.0); GFR 34.2; POTASSIUM 4.1 mmol/L (3.5-5.1); TOTAL BILIRUBIN 0.2 mg/dL (0.2-1.0); TOTAL PROTEIN 6.8 g/dL (6.4-8.2)
--- NOTE | 2020-09-23 06:29 | PDOC ---
Exam Note: [facility] Note: This note is a late entry for 09/22/2020 covers elements not covered in my initial note. Subjective: The patient was seen individually in the evening of 09/22/2020 with Geneva BOND, discussed and reviewed the chart. She slept 3-3/4 hours previous night. The patient is somewhat selective of which medication she takes. She was in the dayroom in the morning but isolative in her room in the evening which is where I met with her. Later she was in the dayroom again. She remains somewhat isolative. Review of Systems: Ambulation impaired in wheelchair. No CV, , eye, ENT system symptoms on review. Mental Status Exam: The patient is oriented to herself and situation. Speech has some latency, coherent. She is giving me thumbs up as I asked her how she was doing and seemed little more animated and smiling. Abstraction is fair. Computation impaired. Language function is intact, less paranoid, less anxious. Mood and affect is somewhat withdrawn. Laboratory Data: Reviewed. Impression: Bipolar disorder mixed with psychotic features in partial remission. Anxiety disorder unspecified. Impulse control disorder unspecified. Plan: Given her poor sleep last night, we will increase Remeron from 7.5 mg h.s. to 15 mg h.s. Maintain rest of the psychotropics unchanged. Assessment: Vital Signs/I&O: Vital Signs Date Time Temp Pulse Resp B/P (MAP) Pulse Ox O2 Delivery O2 Flow Rate FiO2 09/23/20 06:24 97.9 85 17 163/86 (111) 99 09/21/20 16:13 Room Air I & O 09/22/20 09/22/20 09/23/20 15:00 23:00 07:00 Intake Total 360 ml 480 ml Balance 360 ml 480 ml Labs: Laboratory Tests Test 09/22/20 07:28 09/23/20 05:50 Glucose (Fingerstick) 92 mg/dL (70-99) White Blood Count 6.8 x10^3/uL (4.0-11.0) Red Blood Count 4.14 x10^6/uL (3.50-5.40) Hemoglobin 12.5 g/dL (12.0-15.5) Hematocrit 38.1 % (36.0-47.0) Mean Corpuscular Volume 92 fL (79-100) Mean Corpuscular Hemoglobin 30 pg (25-35) Mean Corpuscular Hemoglobin Concent 33 g/dL (31-37) Red Cell Distribution Width 16.3 % (11.5-14.5) H Platelet Count 238 x10^3/uL (140-400) Neutrophils (%) (Auto) 47 % (31-73) Lymphocytes (%) (Auto) 34 % (24-48) Monocytes (%) (Auto) 15 % (0-9) H Eosinophils (%) (Auto) 3 % (0-3) Basophils (%) (Auto) 1 % (0-3) Neutrophils # (Auto) 3.2 x10^3uL (1.8-7.7) Lymphocytes # (Auto) 2.3 x10^3/uL (1.0-4.8) Monocytes # (Auto) 1.0 x10^3/uL (0.0-1.1) Eosinophils # (Auto) 0.2 x10^3/uL (0.0-0.7) Basophils # (Auto) 0.0 x10^3/uL (0.0-0.2) Current Medications: Meds: Laboratory Tests Test 09/22/20 07:28 09/23/20 05:50 Glucose (Fingerstick) 92 mg/dL White Blood Count 6.8 x10^3/uL Red Blood Count 4.14 x10^6/uL Hemoglobin 12.5 g/dL Hematocrit 38.1 % Mean Corpuscular Volume 92 fL Mean Corpuscular Hemoglobin 30 pg Mean Corpuscular Hemoglobin Concent 33 g/dL Red Cell Distribution Width 16.3 % Platelet Count 238 x10^3/uL Neutrophils (%) (Auto) 47 % Lymphocytes (%) (Auto) 34 % Monocytes (%) (Auto) 15 % Eosinophils (%) (Auto) 3 % Basophils (%) (Auto) 1 % Neutrophils # (Auto) 3.2 x10^3uL Lymphocytes # (Auto) 2.3 x10^3/uL Monocytes # (Auto) 1.0 x10^3/uL Eosinophils # (Auto) 0.2 x10^3/uL Basophils # (Auto) 0.0 x10^3/uL Current Medications Medications (Trade) Dose Ordered Sig/Annika Route PRN Reason Start Time Stop Time Status Last Admin Dose Admin Acetaminophen (Tylenol) 650 mg PRN Q6HRS PRN PO MILD PAIN / TEMP > 100.3'F 09/02/20 15:00 09/02/20 16:17 DC Multi-Ingredient Ointment (Analgesic [place]) 1 hui PRN QID PRN TP MUSCLE PAIN 09/02/20 15:00 Al Hydroxide/Mg Hydroxide (Mylanta Plus Xs) 15 ml PRN AFTMEALHC PRN PO DYSPEPSIA 09/02/20 15:00 09/02/20 16:28 DC Magnesium Hydroxide (Milk Of Magnesia) 2,400 mg PRN QHS PRN PO CONSTIPATION 09/02/20 15:00 Acetaminophen (Tylenol) 650 mg PRN Q4HRS PRN PO MILD PAIN / TEMP > 100.3'F 09/02/20 16:15 Albuterol Sulfate (Ventolin Hfa Inhaler) 2 puff BID INH 09/02/20 21:00 09/22/20 20:28 Amlodipine Besylate (Norvasc) 10 mg DAILY PO 09/03/20 09:00 09/22/20 08:41 Atenolol (Tenormin) 50 mg DAILY PO 09/03/20 09:00 09/22/20 08:42 Bupropion HCl (Wellbutrin Xl) 300 mg DAILY PO 09/03/20 09:00 09/22/20 08:42 Divalproex Sodium (Depakote Er) 1,500 mg QHS PO 09/02/20 21:00 09/08/20 20:12 DC 09/07/20 19:41 Docusate Sodium (Colace) 100 mg DAILY PO 09/03/20 09:00 09/20/20 07:45 Donepezil HCl (Aricept) 10 mg HS PO 09/02/20 21:00 09/22/20 20:29 Ferrous Sulfate (Feosol) 325 mg DAILY PO 09/03/20 09:00 09/20/20 07:45 Furosemide (Lasix) 40 mg DAILY PO 09/03/20 09:00 09/22/20 08:42 Guaifenesin (Mucinex Er) 1,200 mg BID PO 09/02/20 21:00 09/22/20 20:28 Hydralazine HCl (Apresoline) 25 mg TID PO 09/02/20 21:00 09/22/20 20:29 Levothyroxine Sodium (Synthroid) 125 mcg DAILY06 PO 09/03/20 06:00 09/23/20 05:38 Al Hydroxide/Mg Hydroxide (Mylanta Plus Xs) 30 ml PRN Q2HRS PRN PO DYSPEPSIA 09/02/20 16:15 Multi-Ingredient Ointment (Analgesic [place]) 1 hui PRN QID PRN TP MUSCLE PAIN 09/02/20 16:15 09/02/20 16:29 DC Montelukast Sodium (Singulair) 10 mg HS PO 09/02/20 21:00 09/22/20 20:28 Olanzapine (ZyPREXA ZYDIS) 2.5 mg PRN Q2HRS PRN PO psychosis/agitation 09/02/20 16:15 09/02/20 16:20 DC Pantoprazole Sodium (Protonix) 40 mg HS PO 09/02/20 21:00 09/22/20 20:29 Polyethylene Glycol (miraLAX) 17 gm DAILY PO 09/03/20 09:00 09/20/20 07:46 Artificial Tears (Artificial Tears) 2 drop BID OU 09/02/20 21:00 09/22/20 20:28 Risperidone (RisperDAL) 0.25 mg QHS PO 09/02/20 21:00 09/07/20 16:47 DC 09/06/20 20:54 Risperidone (RisperDAL) 1 mg QHS PO 09/02/20 21:00 09/07/20 16:47 DC 09/06/20 20:55 Trazodone HCl (Desyrel) 50 mg HS PO 09/02/20 21:00 09/22/20 20:29 Trazodone HCl (Desyrel) 50 mg PRN QHS PRN PO insomnia 09/02/20 16:15 Calcium/Vitamin D (Oscal D 500mg/ 200uts) 1 tab DAILY PO 09/03/20 09:00 09/20/20 07:44 Fluticasone Propionate (Flonase) 2 spray DAILY NS 09/03/20 09:00 09/22/20 08:39 Magnesium Chloride (Mag Delay) 64 mg DAILY PO 09/03/20 09:00 09/20/20 07:44 Non-Formulary Medication (Magnesium Hydroxide (Milk Of Magnesia)) 2,400 mg PRN QHS PRN PO CONSTIPATION 09/02/20 16:15 09/02/20 16:32 DC Metformin HCl (Glucophage) 1,000 mg DAILYWBKFT PO 09/03/20 08:00 09/22/20 08:42 Multivitamins/ Calcium (Thera-M Plus) 1 tab DAILY PO 09/03/20 09:00 09/20/20 07:45 Oxybutynin Chloride (Ditropan) 5 mg QHS PO 09/02/20 21:00 09/22/20 20:29 Guaifenesin (Robitussin) 100 mg PRN Q2HRS PRN PO COUGH 09/02/20 16:30 Hydrocortisone Acetate (Anucort-Hc) 25 mg PRN DAILY PRN RC RECTAL PAIN 09/02/20 16:30 Haloperidol (Haldol) 0.5 mg DAILY PO 09/08/20 09:00 09/16/20 18:34 DC 09/16/20 08:49 Valproic Acid (Depakene) 750 mg BID PO 09/08/20 21:00 09/22/20 20:28 Haloperidol (Haldol) 0.5 mg HS PO 09/17/20 21:00 09/19/20 14:00 DC 09/18/20 20:10 Mirtazapine (Remeron) 7.5 mg QHS PO 09/18/20 21:00 09/22/20 17:31 DC 09/21/20 20:33 Risperidone (RisperDAL) 1 mg 1X ONCE PO 09/19/20 14:00 09/19/20 14:06 DC 09/19/20 14:44 Risperidone (RisperDAL) 1.5 mg DAILY PO 09/20/20 09:00 09/22/20 08:43 Mirtazapine (Remeron) 15 mg QHS PO 09/22/20 21:00 09/22/20 20:29 Current Medications Medications (Trade) Dose Ordered Sig/Annika Route PRN Reason Start Time Stop Time Status Last Admin Dose Admin Mirtazapine (Remeron) 15 mg QHS PO 09/22/20 21:00 09/22/20 20:29 I have reviewed the current psychotropics carefully including drug interactions. Risk benefit ratio favors no change other than as noted in my dictated progress note. Diagnosis: Problems: (1) Impulse control disorder, unspecified (2) Anxiety disorder, unspecified (3) Bipolar disorder, curr episode mixed, severe, with psychotic features JABARI ARBOLEDA MD Sep 23, 2020 06:29
[2020-09-23] MEDS: VALPROATE ACID 250 MG/5 ML ORAL SOLUTION PO SCH ×2 (08:20→20:29)
[2020-09-23] MEDS: POLYVINYL ALCOHOL 1.4% OPHTH SOLUTION 15ML BOTTLE. OU SCH ×2 (08:21→20:28)
[2020-09-23] MEDS: ALBUTEROL SULFATE 8GM INHALER. INH SCH ×2 (08:21→20:28)
[2020-09-23] MEDS: FLUTICASONE 50MCG/NASAL SPRAY 16GM BOTTLE. NS SCH (08:22)
[2020-09-23] MEDS: metFORMIN 500 MG TABLET PO SCH (08:22)
[2020-09-23] MEDS: FERROUS SULFATE 325 MG TABLET. PO SCH (08:23)
[2020-09-23] MEDS: FUROSEMIDE 40 MG TABLET PO SCH (08:23)
[2020-09-23] MEDS: amLODIPine BESYLATE 10 MG TABLET PO SCH (08:23)
[2020-09-23] MEDS: MAGNESIUM CHLORIDE ER 64 MG TABLET.ER PO SCH (08:23)
[2020-09-23] MEDS: hydrALAZINE 25 MG TABLET PO SCH ×3 (08:23→20:29)
[2020-09-23] MEDS: MULTIVITAMIN with MINERAL TABLET. PO SCH (08:24)
[2020-09-23] MEDS: buPROPion XL 300 MG TAB.ER.24H. PO SCH (08:24)
[2020-09-23] MEDS: ATENOLOL 50 MG TABLET PO SCH (08:24)
[2020-09-23] MEDS: POLYETHYLENE GLYCOL 3350 17 GM PACKET. PO SCH (08:25)
[2020-09-23] MEDS: CALCIUM CARB/VIT D3 500/200 TABLET PO SCH (08:25)
[2020-09-23] MEDS: DOCUSATE SODIUM 100 MG CAPSULE PO SCH (08:25)
[2020-09-23] MEDS: risperiDONE 1 MG TABLET. PO SCH (08:25)
[2020-09-23 15:48] VITALS: BP 114/72
[2020-09-23] MEDS: MIRTAZAPINE 7.5 MG TABLET. PO SCH (20:29)
[2020-09-23] MEDS: MONTELUKAST 10 MG TABLET. PO SCH (20:29)
[2020-09-23] MEDS: DONEPEZIL HCL 10 MG TABLET PO SCH (20:29)
[2020-09-23] MEDS: OXYBUTYNIN CHLORIDE 5 MG TABLET PO SCH (20:29)
[2020-09-23] MEDS: traZODone 50 MG TABLET. PO SCH (20:29)
[2020-09-23] MEDS: PANTOPRAZOLE 40 MG TABLET. PO SCH (20:30)
--- NOTE | 2020-09-23 21:59 | PDOC ---
Exam Note: [facility] Note: Please also refer to the separate dictated note~for this date of service dictated separately.~Patient seen individually. Discussed the patient with Nursing staff reviewed the chart.~Reviewed interim history and current functioning. Reviewed vital signs,~Labs/ Radiology~and current medications noted below. Continue current treatment with the changes noted in the dictated addendum note Assessment: Vital Signs/I&O: Vital Signs Date Time Temp Pulse Resp B/P (MAP) Pulse Ox O2 Delivery O2 Flow Rate FiO2 09/23/20 20:29 54 114/72 09/23/20 15:48 98.5 16 91 09/21/20 16:13 Room Air I & O 09/22/20 09/22/20 09/23/20 15:00 23:00 07:00 Intake Total 360 ml 480 ml Balance 360 ml 480 ml Labs: Laboratory Tests Test 09/23/20 05:50 09/23/20 07:41 White Blood Count 6.8 x10^3/uL (4.0-11.0) Red Blood Count 4.14 x10^6/uL (3.50-5.40) Hemoglobin 12.5 g/dL (12.0-15.5) Hematocrit 38.1 % (36.0-47.0) Mean Corpuscular Volume 92 fL (79-100) Mean Corpuscular Hemoglobin 30 pg (25-35) Mean Corpuscular Hemoglobin Concent 33 g/dL (31-37) Red Cell Distribution Width 16.3 % (11.5-14.5) H Platelet Count 238 x10^3/uL (140-400) Neutrophils (%) (Auto) 47 % (31-73) Lymphocytes (%) (Auto) 34 % (24-48) Monocytes (%) (Auto) 15 % (0-9) H Eosinophils (%) (Auto) 3 % (0-3) Basophils (%) (Auto) 1 % (0-3) Neutrophils # (Auto) 3.2 x10^3uL (1.8-7.7) Lymphocytes # (Auto) 2.3 x10^3/uL (1.0-4.8) Monocytes # (Auto) 1.0 x10^3/uL (0.0-1.1) Eosinophils # (Auto) 0.2 x10^3/uL (0.0-0.7) Basophils # (Auto) 0.0 x10^3/uL (0.0-0.2) Sodium Level 144 mmol/L (136-145) Potassium Level 4.1 mmol/L (3.5-5.1) Chloride Level 107 mmol/L (98-107) Carbon Dioxide Level 32 mmol/L (21-32) Anion Gap 5 (6-14) L Blood Urea Nitrogen 37 mg/dL (7-20) H Creatinine 1.5 mg/dL (0.6-1.0) H Estimated GFR (Cockcroft-Gault) 34.2 BUN/Creatinine Ratio 25 (6-20) H Glucose Level 111 mg/dL (70-99) H Calcium Level 9.2 mg/dL (8.5-10.1) Total Bilirubin 0.2 mg/dL (0.2-1.0) Aspartate Amino Transferase (AST) 9 U/L (15-37) L Alanine Aminotransferase (ALT) 18 U/L (14-59) Alkaline Phosphatase 70 U/L (46-116) Total Protein 6.8 g/dL (6.4-8.2) Albumin 3.2 g/dL (3.4-5.0) L Albumin/Globulin Ratio 0.9 (1.0-1.7) L Glucose (Fingerstick) 96 mg/dL (70-99) Current Medications: Meds: Laboratory Tests Test 09/23/20 05:50 09/23/20 07:41 White Blood Count 6.8 x10^3/uL Red Blood Count 4.14 x10^6/uL Hemoglobin 12.5 g/dL Hematocrit 38.1 % Mean Corpuscular Volume 92 fL Mean Corpuscular Hemoglobin 30 pg Mean Corpuscular Hemoglobin Concent 33 g/dL Red Cell Distribution Width 16.3 % Platelet Count 238 x10^3/uL Neutrophils (%) (Auto) 47 % Lymphocytes (%) (Auto) 34 % Monocytes (%) (Auto) 15 % Eosinophils (%) (Auto) 3 % Basophils (%) (Auto) 1 % Neutrophils # (Auto) 3.2 x10^3uL Lymphocytes # (Auto) 2.3 x10^3/uL Monocytes # (Auto) 1.0 x10^3/uL Eosinophils # (Auto) 0.2 x10^3/uL Basophils # (Auto) 0.0 x10^3/uL Sodium Level 144 mmol/L Potassium Level 4.1 mmol/L Chloride Level 107 mmol/L Carbon Dioxide Level 32 mmol/L Anion Gap 5 Blood Urea Nitrogen 37 mg/dL Creatinine 1.5 mg/dL Estimated GFR (Cockcroft-Gault) 34.2 BUN/Creatinine Ratio 25 Glucose Level 111 mg/dL Calcium Level 9.2 mg/dL Total Bilirubin 0.2 mg/dL Aspartate Amino Transf (AST/SGOT) 9 U/L Alanine Aminotransferase (ALT/SGPT) 18 U/L Alkaline Phosphatase 70 U/L Total Protein 6.8 g/dL Albumin 3.2 g/dL Albumin/Globulin Ratio 0.9 Glucose (Fingerstick) 96 mg/dL Current Medications Medications (Trade) Dose Ordered Sig/Annika Route PRN Reason Start Time Stop Time Status Last Admin Dose Admin Acetaminophen (Tylenol) 650 mg PRN Q6HRS PRN PO MILD PAIN / TEMP > 100.3'F 09/02/20 15:00 09/02/20 16:17 DC Multi-Ingredient Ointment (Analgesic [place]) 1 hui PRN QID PRN TP MUSCLE PAIN 09/02/20 15:00 Al Hydroxide/Mg Hydroxide (Mylanta Plus Xs) 15 ml PRN AFTMEALHC PRN PO DYSPEPSIA 09/02/20 15:00 09/02/20 16:28 DC Magnesium Hydroxide (Milk Of Magnesia) 2,400 mg PRN QHS PRN PO CONSTIPATION 09/02/20 15:00 Acetaminophen (Tylenol) 650 mg PRN Q4HRS PRN PO MILD PAIN / TEMP > 100.3'F 09/02/20 16:15 Albuterol Sulfate (Ventolin Hfa Inhaler) 2 puff BID INH 09/02/20 21:00 09/23/20 20:28 Amlodipine Besylate (Norvasc) 10 mg DAILY PO 09/03/20 09:00 09/23/20 08:23 Atenolol (Tenormin) 50 mg DAILY PO 09/03/20 09:00 09/23/20 08:24 Bupropion HCl (Wellbutrin Xl) 300 mg DAILY PO 09/03/20 09:00 09/23/20 08:24 Divalproex Sodium (Depakote Er) 1,500 mg QHS PO 09/02/20 21:00 09/08/20 20:12 DC 09/07/20 19:41 Docusate Sodium (Colace) 100 mg DAILY PO 09/03/20 09:00 09/23/20 08:25 Donepezil HCl (Aricept) 10 mg HS PO 09/02/20 21:00 09/23/20 20:29 Ferrous Sulfate (Feosol) 325 mg DAILY PO 09/03/20 09:00 09/23/20 08:23 Furosemide (Lasix) 40 mg DAILY PO 09/03/20 09:00 09/23/20 08:23 Guaifenesin (Mucinex Er) 1,200 mg BID PO 09/02/20 21:00 09/23/20 20:30 Hydralazine HCl (Apresoline) 25 mg TID PO 09/02/20 21:00 09/23/20 20:29 Levothyroxine Sodium (Synthroid) 125 mcg DAILY06 PO 09/03/20 06:00 09/23/20 05:38 Al Hydroxide/Mg Hydroxide (Mylanta Plus Xs) 30 ml PRN Q2HRS PRN PO DYSPEPSIA 09/02/20 16:15 Multi-Ingredient Ointment (Analgesic [place]) 1 hui PRN QID PRN TP MUSCLE PAIN 09/02/20 16:15 09/02/20 16:29 DC Montelukast Sodium (Singulair) 10 mg HS PO 09/02/20 21:00 09/23/20 20:29 Olanzapine (ZyPREXA ZYDIS) 2.5 mg PRN Q2HRS PRN PO psychosis/agitation 09/02/20 16:15 09/02/20 16:20 DC Pantoprazole Sodium (Protonix) 40 mg HS PO 09/02/20 21:00 09/23/20 20:30 Polyethylene Glycol (miraLAX) 17 gm DAILY PO 09/03/20 09:00 09/20/20 07:46 Artificial Tears (Artificial Tears) 2 drop BID OU 09/02/20 21:00 09/23/20 20:28 Risperidone (RisperDAL) 0.25 mg QHS PO 09/02/20 21:00 09/07/20 16:47 DC 09/06/20 20:54 Risperidone (RisperDAL) 1 mg QHS PO 09/02/20 21:00 09/07/20 16:47 DC 09/06/20 20:55 Trazodone HCl (Desyrel) 50 mg HS PO 09/02/20 21:00 09/23/20 20:29 Trazodone HCl (Desyrel) 50 mg PRN QHS PRN PO insomnia 09/02/20 16:15 Calcium/Vitamin D (Oscal D 500mg/ 200uts) 1 tab DAILY PO 09/03/20 09:00 09/23/20 08:25 Fluticasone Propionate (Flonase) 2 spray DAILY NS 09/03/20 09:00 09/23/20 08:22 Magnesium Chloride (Mag Delay) 64 mg DAILY PO 09/03/20 09:00 09/23/20 08:23 Non-Formulary Medication (Magnesium Hydroxide (Milk Of Magnesia)) 2,400 mg PRN QHS PRN PO CONSTIPATION 09/02/20 16:15 09/02/20 16:32 DC Metformin HCl (Glucophage) 1,000 mg DAILYWBKFT PO 09/03/20 08:00 09/23/20 08:22 Multivitamins/ Calcium (Thera-M Plus) 1 tab DAILY PO 09/03/20 09:00 09/23/20 08:24 Oxybutynin Chloride (Ditropan) 5 mg QHS PO 09/02/20 21:00 09/23/20 20:29 Guaifenesin (Robitussin) 100 mg PRN Q2HRS PRN PO COUGH 09/02/20 16:30 Hydrocortisone Acetate (Anucort-Hc) 25 mg PRN DAILY PRN RC RECTAL PAIN 09/02/20 16:30 Haloperidol (Haldol) 0.5 mg DAILY PO 09/08/20 09:00 09/16/20 18:34 DC 09/16/20 08:49 Valproic Acid (Depakene) 750 mg BID PO 09/08/20 21:00 09/23/20 20:29 Haloperidol (Haldol) 0.5 mg HS PO 09/17/20 21:00 09/19/20 14:00 DC 09/18/20 20:10 Mirtazapine (Remeron) 7.5 mg QHS PO 09/18/20 21:00 09/22/20 17:31 DC 09/21/20 20:33 Risperidone (RisperDAL) 1 mg 1X ONCE PO 09/19/20 14:00 09/19/20 14:06 DC 09/19/20 14:44 Risperidone (RisperDAL) 1.5 mg DAILY PO 09/20/20 09:00 09/23/20 08:25 Mirtazapine (Remeron) 15 mg QHS PO 09/22/20 21:00 09/23/20 20:29 I have reviewed the current psychotropics carefully including drug interactions. Risk benefit ratio favors no change other than as noted in my dictated progress note. Diagnosis: Problems: (1) Impulse control disorder, unspecified (2) Anxiety disorder, unspecified (3) Bipolar disorder, curr episode mixed, severe, with psychotic features JABARI ARBOLEDA MD Sep 23, 2020 21:59
[2020-09-24] MEDS: LEVOTHYROXINE 125 MCG TABLET PO SCH (05:34)
[2020-09-24 05:59] VITALS: BP 125/80
--- NOTE | 2020-09-24 06:40 | PDOC ---
Exam Note: [facility] Note: This note is a late entry for 09/23/2020 covers elements not covered in my initial note. Subjective: The patient was seen individually in the evening of 09/23/2020 with Geneva BOND, discussed and reviewed the chart. She slept 7-1/4 hours previous night. The patient has been somewhat withdrawn, isolative, but has come out to the dayroom, more than before. I met with her in the dayroom this evening. Review of Systems: Ambulation impaired with walker. No CV, , pulmonary, eye, ENT system symptoms on review. Mental Status Exam: The patient is oriented to herself and situation. Speech has some latency, coherent. Abstraction is fair. Computation impaired. Language function is intact. Mood and affect is somewhat withdrawn. Laboratory Data: Reviewed. Impression: Bipolar disorder mixed with psychotic features in partial remission. Anxiety disorder unspecified. Impulse control disorder unspecified. Plan: Continue current psychotropics mentioned in my initial note. Valproic acid level is therapeutic. If mood lability persists, we may need to increase Risperdal. Assessment: Vital Signs/I&O: Vital Signs Date Time Temp Pulse Resp B/P (MAP) Pulse Ox O2 Delivery O2 Flow Rate FiO2 09/24/20 05:59 98.3 64 20 125/80 (95) 93 Room Air I & O 09/23/20 09/23/20 09/24/20 15:00 23:00 07:00 Intake Total 840 ml 360 ml 240 ml Balance 840 ml 360 ml 240 ml Labs: Laboratory Tests Test 09/23/20 07:41 Glucose (Fingerstick) 96 mg/dL (70-99) Current Medications: Meds: Laboratory Tests Test 09/23/20 07:41 Glucose (Fingerstick) 96 mg/dL Current Medications Medications (Trade) Dose Ordered Sig/Annika Route PRN Reason Start Time Stop Time Status Last Admin Dose Admin Acetaminophen (Tylenol) 650 mg PRN Q6HRS PRN PO MILD PAIN / TEMP > 100.3'F 09/02/20 15:00 09/02/20 16:17 DC Multi-Ingredient Ointment (Analgesic [place]) 1 hui PRN QID PRN TP MUSCLE PAIN 09/02/20 15:00 Al Hydroxide/Mg Hydroxide (Mylanta Plus Xs) 15 ml PRN AFTMEALHC PRN PO DYSPEPSIA 09/02/20 15:00 09/02/20 16:28 DC Magnesium Hydroxide (Milk Of Magnesia) 2,400 mg PRN QHS PRN PO CONSTIPATION 09/02/20 15:00 Acetaminophen (Tylenol) 650 mg PRN Q4HRS PRN PO MILD PAIN / TEMP > 100.3'F 09/02/20 16:15 Albuterol Sulfate (Ventolin Hfa Inhaler) 2 puff BID INH 09/02/20 21:00 09/23/20 20:28 Amlodipine Besylate (Norvasc) 10 mg DAILY PO 09/03/20 09:00 09/23/20 08:23 Atenolol (Tenormin) 50 mg DAILY PO 09/03/20 09:00 09/23/20 08:24 Bupropion HCl (Wellbutrin Xl) 300 mg DAILY PO 09/03/20 09:00 09/23/20 08:24 Divalproex Sodium (Depakote Er) 1,500 mg QHS PO 09/02/20 21:00 09/08/20 20:12 DC 09/07/20 19:41 Docusate Sodium (Colace) 100 mg DAILY PO 09/03/20 09:00 09/23/20 08:25 Donepezil HCl (Aricept) 10 mg HS PO 09/02/20 21:00 09/23/20 20:29 Ferrous Sulfate (Feosol) 325 mg DAILY PO 09/03/20 09:00 09/23/20 08:23 Furosemide (Lasix) 40 mg DAILY PO 09/03/20 09:00 09/23/20 08:23 Guaifenesin (Mucinex Er) 1,200 mg BID PO 09/02/20 21:00 09/23/20 20:30 Hydralazine HCl (Apresoline) 25 mg TID PO 09/02/20 21:00 09/23/20 20:29 Levothyroxine Sodium (Synthroid) 125 mcg DAILY06 PO 09/03/20 06:00 09/24/20 05:34 Al Hydroxide/Mg Hydroxide (Mylanta Plus Xs) 30 ml PRN Q2HRS PRN PO DYSPEPSIA 09/02/20 16:15 Multi-Ingredient Ointment (Analgesic [place]) 1 hui PRN QID PRN TP MUSCLE PAIN 09/02/20 16:15 09/02/20 16:29 DC Montelukast Sodium (Singulair) 10 mg HS PO 09/02/20 21:00 09/23/20 20:29 Olanzapine (ZyPREXA ZYDIS) 2.5 mg PRN Q2HRS PRN PO psychosis/agitation 09/02/20 16:15 09/02/20 16:20 DC Pantoprazole Sodium (Protonix) 40 mg HS PO 09/02/20 21:00 09/23/20 20:30 Polyethylene Glycol (miraLAX) 17 gm DAILY PO 09/03/20 09:00 09/20/20 07:46 Artificial Tears (Artificial Tears) 2 drop BID OU 09/02/20 21:00 09/23/20 20:28 Risperidone (RisperDAL) 0.25 mg QHS PO 09/02/20 21:00 09/07/20 16:47 DC 09/06/20 20:54 Risperidone (RisperDAL) 1 mg QHS PO 09/02/20 21:00 09/07/20 16:47 DC 09/06/20 20:55 Trazodone HCl (Desyrel) 50 mg HS PO 09/02/20 21:00 09/23/20 20:29 Trazodone HCl (Desyrel) 50 mg PRN QHS PRN PO insomnia 09/02/20 16:15 Calcium/Vitamin D (Oscal D 500mg/ 200uts) 1 tab DAILY PO 09/03/20 09:00 09/23/20 08:25 Fluticasone Propionate (Flonase) 2 spray DAILY NS 09/03/20 09:00 09/23/20 08:22 Magnesium Chloride (Mag Delay) 64 mg DAILY PO 09/03/20 09:00 09/23/20 08:23 Non-Formulary Medication (Magnesium Hydroxide (Milk Of Magnesia)) 2,400 mg PRN QHS PRN PO CONSTIPATION 09/02/20 16:15 09/02/20 16:32 DC Metformin HCl (Glucophage) 1,000 mg DAILYWBKFT PO 09/03/20 08:00 09/23/20 08:22 Multivitamins/ Calcium (Thera-M Plus) 1 tab DAILY PO 09/03/20 09:00 09/23/20 08:24 Oxybutynin Chloride (Ditropan) 5 mg QHS PO 09/02/20 21:00 09/23/20 20:29 Guaifenesin (Robitussin) 100 mg PRN Q2HRS PRN PO COUGH 09/02/20 16:30 Hydrocortisone Acetate (Anucort-Hc) 25 mg PRN DAILY PRN RC RECTAL PAIN 09/02/20 16:30 Haloperidol (Haldol) 0.5 mg DAILY PO 09/08/20 09:00 09/16/20 18:34 DC 09/16/20 08:49 Valproic Acid (Depakene) 750 mg BID PO 09/08/20 21:00 09/23/20 20:29 Haloperidol (Haldol) 0.5 mg HS PO 09/17/20 21:00 09/19/20 14:00 DC 09/18/20 20:10 Mirtazapine (Remeron) 7.5 mg QHS PO 09/18/20 21:00 09/22/20 17:31 DC 09/21/20 20:33 Risperidone (RisperDAL) 1 mg 1X ONCE PO 09/19/20 14:00 09/19/20 14:06 DC 09/19/20 14:44 Risperidone (RisperDAL) 1.5 mg DAILY PO 09/20/20 09:00 09/23/20 08:25 Mirtazapine (Remeron) 15 mg QHS PO 09/22/20 21:00 09/23/20 20:29 I have reviewed the current psychotropics carefully including drug interactions. Risk benefit ratio favors no change other than as noted in my dictated progress note. Diagnosis: Problems: (1) Impulse control disorder, unspecified (2) Anxiety disorder, unspecified (3) Bipolar disorder, curr episode mixed, severe, with psychotic features JABARI ARBOLEDA MD Sep 24, 2020 06:40
[2020-09-24] MEDS: FERROUS SULFATE 325 MG TABLET. PO SCH (09:00)
[2020-09-24] MEDS: VALPROATE ACID 250 MG/5 ML ORAL SOLUTION PO SCH ×2 (10:09→20:30)
[2020-09-24] MEDS: POLYETHYLENE GLYCOL 3350 17 GM PACKET. PO SCH (10:10)
[2020-09-24] MEDS: ALBUTEROL SULFATE 8GM INHALER. INH SCH ×2 (10:10→20:30)
[2020-09-24] MEDS: POLYVINYL ALCOHOL 1.4% OPHTH SOLUTION 15ML BOTTLE. OU SCH ×2 (10:10→20:30)
[2020-09-24] MEDS: FLUTICASONE 50MCG/NASAL SPRAY 16GM BOTTLE. NS SCH (10:11)
[2020-09-24] MEDS: DOCUSATE SODIUM 100 MG CAPSULE PO SCH (10:14)
[2020-09-24] MEDS: metFORMIN 500 MG TABLET PO SCH (10:14)
[2020-09-24] MEDS: buPROPion XL 300 MG TAB.ER.24H. PO SCH (10:14)
[2020-09-24] MEDS: MULTIVITAMIN with MINERAL TABLET. PO SCH (10:15)
[2020-09-24] MEDS: CALCIUM CARB/VIT D3 500/200 TABLET PO SCH (10:15)
[2020-09-24] MEDS: hydrALAZINE 25 MG TABLET PO SCH ×3 (10:15→20:31)
[2020-09-24] MEDS: ATENOLOL 50 MG TABLET PO SCH (10:15)
[2020-09-24] MEDS: MAGNESIUM CHLORIDE ER 64 MG TABLET.ER PO SCH (10:15)
[2020-09-24] MEDS: risperiDONE 1 MG TABLET. PO SCH (10:16)
[2020-09-24] MEDS: FUROSEMIDE 40 MG TABLET PO SCH (10:16)
[2020-09-24] MEDS: amLODIPine BESYLATE 10 MG TABLET PO SCH (10:17)
[2020-09-24 16:10] VITALS: BP 136/76
[2020-09-24] MEDS: OXYBUTYNIN CHLORIDE 5 MG TABLET PO SCH (20:30)
[2020-09-24] MEDS: MIRTAZAPINE 7.5 MG TABLET. PO SCH (20:30)
[2020-09-24] MEDS: MONTELUKAST 10 MG TABLET. PO SCH (20:30)
[2020-09-24] MEDS: PANTOPRAZOLE 40 MG TABLET. PO SCH (20:30)
[2020-09-24] MEDS: DONEPEZIL HCL 10 MG TABLET PO SCH (20:31)
[2020-09-24] MEDS: traZODone 50 MG TABLET. PO SCH (20:31)
--- NOTE | 2020-09-24 22:57 | PDOC ---
Exam Note: [facility] Note: Please also refer to the separate dictated note~for this date of service dictated separately.~Patient seen individually. Discussed the patient with Nursing staff reviewed the chart.~Reviewed interim history and current functioning. Reviewed vital signs,~Labs/ Radiology~and current medications noted below. Continue current treatment with the changes noted in the dictated addendum note Assessment: Vital Signs/I&O: Vital Signs Date Time Temp Pulse Resp B/P (MAP) Pulse Ox O2 Delivery O2 Flow Rate FiO2 09/24/20 20:31 58 136/76 09/24/20 16:10 98.5 16 92 09/24/20 05:59 Room Air I & O 09/23/20 09/23/20 09/24/20 15:00 23:00 07:00 Intake Total 840 ml 360 ml 240 ml Balance 840 ml 360 ml 240 ml Labs: Laboratory Tests Test 09/24/20 07:23 Glucose (Fingerstick) 99 mg/dL (70-99) Current Medications: Meds: Laboratory Tests Test 09/24/20 07:23 Glucose (Fingerstick) 99 mg/dL Current Medications Medications (Trade) Dose Ordered Sig/Annika Route PRN Reason Start Time Stop Time Status Last Admin Dose Admin Acetaminophen (Tylenol) 650 mg PRN Q6HRS PRN PO MILD PAIN / TEMP > 100.3'F 09/02/20 15:00 09/02/20 16:17 DC Multi-Ingredient Ointment (Analgesic [place]) 1 hui PRN QID PRN TP MUSCLE PAIN 09/02/20 15:00 Al Hydroxide/Mg Hydroxide (Mylanta Plus Xs) 15 ml PRN AFTMEALHC PRN PO DYSPEPSIA 09/02/20 15:00 09/02/20 16:28 DC Magnesium Hydroxide (Milk Of Magnesia) 2,400 mg PRN QHS PRN PO CONSTIPATION 09/02/20 15:00 Acetaminophen (Tylenol) 650 mg PRN Q4HRS PRN PO MILD PAIN / TEMP > 100.3'F 09/02/20 16:15 Albuterol Sulfate (Ventolin Hfa Inhaler) 2 puff BID INH 09/02/20 21:00 09/24/20 20:30 Amlodipine Besylate (Norvasc) 10 mg DAILY PO 09/03/20 09:00 09/24/20 10:17 Atenolol (Tenormin) 50 mg DAILY PO 09/03/20 09:00 09/24/20 10:15 Bupropion HCl (Wellbutrin Xl) 300 mg DAILY PO 09/03/20 09:00 09/24/20 10:14 Divalproex Sodium (Depakote Er) 1,500 mg QHS PO 09/02/20 21:00 09/08/20 20:12 DC 09/07/20 19:41 Docusate Sodium (Colace) 100 mg DAILY PO 09/03/20 09:00 09/24/20 10:14 Donepezil HCl (Aricept) 10 mg HS PO 09/02/20 21:00 09/24/20 20:31 Ferrous Sulfate (Feosol) 325 mg DAILY PO 09/03/20 09:00 09/24/20 09:00 Furosemide (Lasix) 40 mg DAILY PO 09/03/20 09:00 09/24/20 10:16 Guaifenesin (Mucinex Er) 1,200 mg BID PO 09/02/20 21:00 09/24/20 20:30 Hydralazine HCl (Apresoline) 25 mg TID PO 09/02/20 21:00 09/24/20 20:31 Levothyroxine Sodium (Synthroid) 125 mcg DAILY06 PO 09/03/20 06:00 09/24/20 05:34 Al Hydroxide/Mg Hydroxide (Mylanta Plus Xs) 30 ml PRN Q2HRS PRN PO DYSPEPSIA 09/02/20 16:15 Multi-Ingredient Ointment (Analgesic [place]) 1 hui PRN QID PRN TP MUSCLE PAIN 09/02/20 16:15 09/02/20 16:29 DC Montelukast Sodium (Singulair) 10 mg HS PO 09/02/20 21:00 09/24/20 20:30 Olanzapine (ZyPREXA ZYDIS) 2.5 mg PRN Q2HRS PRN PO psychosis/agitation 09/02/20 16:15 09/02/20 16:20 DC Pantoprazole Sodium (Protonix) 40 mg HS PO 09/02/20 21:00 09/24/20 20:30 Polyethylene Glycol (miraLAX) 17 gm DAILY PO 09/03/20 09:00 09/24/20 10:10 Artificial Tears (Artificial Tears) 2 drop BID OU 09/02/20 21:00 09/24/20 20:30 Risperidone (RisperDAL) 0.25 mg QHS PO 09/02/20 21:00 09/07/20 16:47 DC 09/06/20 20:54 Risperidone (RisperDAL) 1 mg QHS PO 09/02/20 21:00 09/07/20 16:47 DC 09/06/20 20:55 Trazodone HCl (Desyrel) 50 mg HS PO 09/02/20 21:00 09/24/20 20:31 Trazodone HCl (Desyrel) 50 mg PRN QHS PRN PO insomnia 09/02/20 16:15 Calcium/Vitamin D (Oscal D 500mg/ 200uts) 1 tab DAILY PO 09/03/20 09:00 09/24/20 10:15 Fluticasone Propionate (Flonase) 2 spray DAILY NS 09/03/20 09:00 09/24/20 10:11 Magnesium Chloride (Mag Delay) 64 mg DAILY PO 09/03/20 09:00 09/24/20 10:15 Non-Formulary Medication (Magnesium Hydroxide (Milk Of Magnesia)) 2,400 mg PRN QHS PRN PO CONSTIPATION 09/02/20 16:15 09/02/20 16:32 DC Metformin HCl (Glucophage) 1,000 mg DAILYWBKFT PO 09/03/20 08:00 09/24/20 10:14 Multivitamins/ Calcium (Thera-M Plus) 1 tab DAILY PO 09/03/20 09:00 09/24/20 10:15 Oxybutynin Chloride (Ditropan) 5 mg QHS PO 09/02/20 21:00 09/24/20 20:30 Guaifenesin (Robitussin) 100 mg PRN Q2HRS PRN PO COUGH 09/02/20 16:30 Hydrocortisone Acetate (Anucort-Hc) 25 mg PRN DAILY PRN RC RECTAL PAIN 09/02/20 16:30 Haloperidol (Haldol) 0.5 mg DAILY PO 09/08/20 09:00 09/16/20 18:34 DC 09/16/20 08:49 Valproic Acid (Depakene) 750 mg BID PO 09/08/20 21:00 09/24/20 20:30 Haloperidol (Haldol) 0.5 mg HS PO 09/17/20 21:00 09/19/20 14:00 DC 09/18/20 20:10 Mirtazapine (Remeron) 7.5 mg QHS PO 09/18/20 21:00 09/22/20 17:31 DC 09/21/20 20:33 Risperidone (RisperDAL) 1 mg 1X ONCE PO 09/19/20 14:00 09/19/20 14:06 DC 09/19/20 14:44 Risperidone (RisperDAL) 1.5 mg DAILY PO 09/20/20 09:00 09/24/20 10:16 Mirtazapine (Remeron) 15 mg QHS PO 09/22/20 21:00 09/24/20 20:30 I have reviewed the current psychotropics carefully including drug interactions. Risk benefit ratio favors no change other than as noted in my dictated progress note. Diagnosis: Problems: (1) Impulse control disorder, unspecified (2) Anxiety disorder, unspecified (3) Bipolar disorder, curr episode mixed, severe, with psychotic features JABARI ARBOLEDA MD Sep 24, 2020 22:57
[2020-09-25] MEDS: LEVOTHYROXINE 125 MCG TABLET PO SCH (05:25)
[2020-09-25 05:54] VITALS: BP 144/82
[2020-09-25] MEDS: amLODIPine BESYLATE 10 MG TABLET PO SCH (08:24)
[2020-09-25] MEDS: CALCIUM CARB/VIT D3 500/200 TABLET PO SCH (08:24)
[2020-09-25] MEDS: metFORMIN 500 MG TABLET PO SCH (08:24)
[2020-09-25] MEDS: FERROUS SULFATE 325 MG TABLET. PO SCH (08:25)
[2020-09-25] MEDS: hydrALAZINE 25 MG TABLET PO SCH ×3 (08:25→20:21)
[2020-09-25] MEDS: MAGNESIUM CHLORIDE ER 64 MG TABLET.ER PO SCH (08:25)
[2020-09-25] MEDS: buPROPion XL 300 MG TAB.ER.24H. PO SCH (08:25)
[2020-09-25] MEDS: risperiDONE 1 MG TABLET. PO SCH (08:25)
[2020-09-25] MEDS: MULTIVITAMIN with MINERAL TABLET. PO SCH (08:25)
[2020-09-25] MEDS: DOCUSATE SODIUM 100 MG CAPSULE PO SCH (08:25)
[2020-09-25] MEDS: FUROSEMIDE 40 MG TABLET PO SCH (08:26)
[2020-09-25] MEDS: VALPROATE ACID 250 MG/5 ML ORAL SOLUTION PO SCH ×2 (08:26→20:23)
[2020-09-25] MEDS: POLYETHYLENE GLYCOL 3350 17 GM PACKET. PO SCH (08:26)
[2020-09-25] MEDS: POLYVINYL ALCOHOL 1.4% OPHTH SOLUTION 15ML BOTTLE. OU SCH ×2 (08:29→20:22)
[2020-09-25] MEDS: ALBUTEROL SULFATE 8GM INHALER. INH SCH ×2 (08:29→20:22)
[2020-09-25] MEDS: ATENOLOL 50 MG TABLET PO SCH (08:35)
[2020-09-25] MEDS: FLUTICASONE 50MCG/NASAL SPRAY 16GM BOTTLE. NS SCH (08:58)
[2020-09-25 15:40] VITALS: BP 161/89
[2020-09-25] MEDS: MONTELUKAST 10 MG TABLET. PO SCH (20:20)
[2020-09-25] MEDS: DONEPEZIL HCL 10 MG TABLET PO SCH (20:21)
[2020-09-25] MEDS: PANTOPRAZOLE 40 MG TABLET. PO SCH (20:21)
[2020-09-25] MEDS: OXYBUTYNIN CHLORIDE 5 MG TABLET PO SCH (20:21)
[2020-09-25] MEDS: MIRTAZAPINE 7.5 MG TABLET. PO SCH (20:21)
[2020-09-25] MEDS: traZODone 50 MG TABLET. PO SCH (20:21)
--- NOTE | 2020-09-25 21:58 | PDOC ---
Exam Note: [facility] Note: Please also refer to the separate dictated note~for this date of service dictated separately.~Patient seen individually. Discussed the patient with Nursing staff reviewed the chart.~Reviewed interim history and current functioning. Reviewed vital signs,~Labs/ Radiology~and current medications noted below. Continue current treatment with the changes noted in the dictated addendum note Assessment: Vital Signs/I&O: Vital Signs Date Time Temp Pulse Resp B/P (MAP) Pulse Ox O2 Delivery O2 Flow Rate FiO2 09/25/20 20:21 64 161/89 09/25/20 15:40 97.1 17 98 09/24/20 05:59 Room Air I & O 09/24/20 09/24/20 09/25/20 15:00 23:00 07:00 Intake Total 720 ml 600 ml Balance 720 ml 600 ml Labs: Laboratory Tests Test 09/25/20 07:26 Glucose (Fingerstick) 104 mg/dL (70-99) H Current Medications: Meds: Laboratory Tests Test 09/25/20 07:26 Glucose (Fingerstick) 104 mg/dL Current Medications Medications (Trade) Dose Ordered Sig/Annika Route PRN Reason Start Time Stop Time Status Last Admin Dose Admin Acetaminophen (Tylenol) 650 mg PRN Q6HRS PRN PO MILD PAIN / TEMP > 100.3'F 09/02/20 15:00 09/02/20 16:17 DC Multi-Ingredient Ointment (Analgesic [place]) 1 hui PRN QID PRN TP MUSCLE PAIN 09/02/20 15:00 Al Hydroxide/Mg Hydroxide (Mylanta Plus Xs) 15 ml PRN AFTMEALHC PRN PO DYSPEPSIA 09/02/20 15:00 09/02/20 16:28 DC Magnesium Hydroxide (Milk Of Magnesia) 2,400 mg PRN QHS PRN PO CONSTIPATION 09/02/20 15:00 Acetaminophen (Tylenol) 650 mg PRN Q4HRS PRN PO MILD PAIN / TEMP > 100.3'F 09/02/20 16:15 Albuterol Sulfate (Ventolin Hfa Inhaler) 2 puff BID INH 09/02/20 21:00 09/25/20 20:22 Amlodipine Besylate (Norvasc) 10 mg DAILY PO 09/03/20 09:00 09/25/20 08:24 Atenolol (Tenormin) 50 mg DAILY PO 09/03/20 09:00 09/24/20 10:15 Bupropion HCl (Wellbutrin Xl) 300 mg DAILY PO 09/03/20 09:00 09/25/20 08:25 Divalproex Sodium (Depakote Er) 1,500 mg QHS PO 09/02/20 21:00 09/08/20 20:12 DC 09/07/20 19:41 Docusate Sodium (Colace) 100 mg DAILY PO 09/03/20 09:00 09/25/20 08:25 Donepezil HCl (Aricept) 10 mg HS PO 09/02/20 21:00 09/25/20 20:21 Ferrous Sulfate (Feosol) 325 mg DAILY PO 09/03/20 09:00 09/25/20 08:25 Furosemide (Lasix) 40 mg DAILY PO 09/03/20 09:00 09/25/20 08:26 Guaifenesin (Mucinex Er) 1,200 mg BID PO 09/02/20 21:00 09/25/20 20:21 Hydralazine HCl (Apresoline) 25 mg TID PO 09/02/20 21:00 09/25/20 20:21 Levothyroxine Sodium (Synthroid) 125 mcg DAILY06 PO 09/03/20 06:00 09/25/20 05:25 Al Hydroxide/Mg Hydroxide (Mylanta Plus Xs) 30 ml PRN Q2HRS PRN PO DYSPEPSIA 09/02/20 16:15 Multi-Ingredient Ointment (Analgesic [place]) 1 hui PRN QID PRN TP MUSCLE PAIN 09/02/20 16:15 09/02/20 16:29 DC Montelukast Sodium (Singulair) 10 mg HS PO 09/02/20 21:00 09/25/20 20:20 Olanzapine (ZyPREXA ZYDIS) 2.5 mg PRN Q2HRS PRN PO psychosis/agitation 09/02/20 16:15 09/02/20 16:20 DC Pantoprazole Sodium (Protonix) 40 mg HS PO 09/02/20 21:00 09/25/20 20:21 Polyethylene Glycol (miraLAX) 17 gm DAILY PO 09/03/20 09:00 09/25/20 08:26 Artificial Tears (Artificial Tears) 2 drop BID OU 09/02/20 21:00 09/25/20 20:22 Risperidone (RisperDAL) 0.25 mg QHS PO 09/02/20 21:00 09/07/20 16:47 DC 09/06/20 20:54 Risperidone (RisperDAL) 1 mg QHS PO 09/02/20 21:00 09/07/20 16:47 DC 09/06/20 20:55 Trazodone HCl (Desyrel) 50 mg HS PO 09/02/20 21:00 09/25/20 20:21 Trazodone HCl (Desyrel) 50 mg PRN QHS PRN PO insomnia 09/02/20 16:15 Calcium/Vitamin D (Oscal D 500mg/ 200uts) 1 tab DAILY PO 09/03/20 09:00 09/25/20 08:24 Fluticasone Propionate (Flonase) 2 spray DAILY NS 09/03/20 09:00 09/25/20 08:58 Magnesium Chloride (Mag Delay) 64 mg DAILY PO 09/03/20 09:00 09/25/20 08:25 Non-Formulary Medication (Magnesium Hydroxide (Milk Of Magnesia)) 2,400 mg PRN QHS PRN PO CONSTIPATION 09/02/20 16:15 09/02/20 16:32 DC Metformin HCl (Glucophage) 1,000 mg DAILYWBKFT PO 09/03/20 08:00 09/25/20 08:24 Multivitamins/ Calcium (Thera-M Plus) 1 tab DAILY PO 09/03/20 09:00 09/25/20 08:25 Oxybutynin Chloride (Ditropan) 5 mg QHS PO 09/02/20 21:00 09/25/20 20:21 Guaifenesin (Robitussin) 100 mg PRN Q2HRS PRN PO COUGH 09/02/20 16:30 Hydrocortisone Acetate (Anucort-Hc) 25 mg PRN DAILY PRN RC RECTAL PAIN 09/02/20 16:30 Haloperidol (Haldol) 0.5 mg DAILY PO 09/08/20 09:00 09/16/20 18:34 DC 09/16/20 08:49 Valproic Acid (Depakene) 750 mg BID PO 09/08/20 21:00 09/25/20 20:23 Haloperidol (Haldol) 0.5 mg HS PO 09/17/20 21:00 09/19/20 14:00 DC 09/18/20 20:10 Mirtazapine (Remeron) 7.5 mg QHS PO 09/18/20 21:00 09/22/20 17:31 DC 09/21/20 20:33 Risperidone (RisperDAL) 1 mg 1X ONCE PO 09/19/20 14:00 09/19/20 14:06 DC 09/19/20 14:44 Risperidone (RisperDAL) 1.5 mg DAILY PO 09/20/20 09:00 09/25/20 08:25 Mirtazapine (Remeron) 15 mg QHS PO 09/22/20 21:00 09/25/20 20:21 I have reviewed the current psychotropics carefully including drug interactions. Risk benefit ratio favors no change other than as noted in my dictated progress note. Diagnosis: Problems: (1) Impulse control disorder, unspecified (2) Anxiety disorder, unspecified (3) Bipolar disorder, curr episode mixed, severe, with psychotic features JABARI ARBOLEDA MD Sep 25, 2020 21:58
[2020-09-26 05:42] VITALS: BP 117/69
[2020-09-26] MEDS: LEVOTHYROXINE 125 MCG TABLET PO SCH (05:55)
[2020-09-26] MEDS: POLYVINYL ALCOHOL 1.4% OPHTH SOLUTION 15ML BOTTLE. OU SCH ×2 (09:00→20:34)
[2020-09-26] MEDS: ALBUTEROL SULFATE 8GM INHALER. INH SCH ×2 (09:00→20:34)
[2020-09-26] MEDS: FLUTICASONE 50MCG/NASAL SPRAY 16GM BOTTLE. NS SCH (09:00)
[2020-09-26] MEDS: amLODIPine BESYLATE 10 MG TABLET PO SCH (09:30)
[2020-09-26] MEDS: CALCIUM CARB/VIT D3 500/200 TABLET PO SCH (09:30)
[2020-09-26] MEDS: ATENOLOL 50 MG TABLET PO SCH (09:30)
[2020-09-26] MEDS: metFORMIN 500 MG TABLET PO SCH (09:30)
[2020-09-26] MEDS: FUROSEMIDE 40 MG TABLET PO SCH (09:31)
[2020-09-26] MEDS: risperiDONE 1 MG TABLET. PO SCH (09:31)
[2020-09-26] MEDS: MAGNESIUM CHLORIDE ER 64 MG TABLET.ER PO SCH (09:32)
[2020-09-26] MEDS: buPROPion XL 300 MG TAB.ER.24H. PO SCH (09:32)
[2020-09-26] MEDS: hydrALAZINE 25 MG TABLET PO SCH ×3 (09:32→20:33)
[2020-09-26] MEDS: MULTIVITAMIN with MINERAL TABLET. PO SCH (09:32)
[2020-09-26] MEDS: DOCUSATE SODIUM 100 MG CAPSULE PO SCH (09:32)
[2020-09-26] MEDS: FERROUS SULFATE 325 MG TABLET. PO SCH (09:32)
[2020-09-26] MEDS: VALPROATE ACID 250 MG/5 ML ORAL SOLUTION PO SCH ×2 (09:33→20:33)
[2020-09-26] MEDS: POLYETHYLENE GLYCOL 3350 17 GM PACKET. PO SCH (09:33)
--- NOTE | 2020-09-26 13:50 | TX PLAN ---
Interdisciplinary Tx Plan Admission Information Sep 02, 2020 at 14:35 Legal Status (on Admission): Voluntary DPOA/Guardian Name: Comfort Bryan Contact or Other Contact Name: [facility] Other Contact Verified Code Status: DNR Allergies: Coded Allergies: adhesive (Verified Allergy, Intermediate, 02/22/20) fluoxetine (Verified Allergy, Intermediate, 02/22/20) Penicillins (Verified Allergy, Unknown, 09/03/20) Diagnoses Primary Diagnosis: Bipolar D/O, recent episode manic Reasons for Admission: Sig. Change Sleep, Poor impulse control, Other Problem in Patient's Words: Assuming natural progression within pt dx. Additional Admission Comments: According to the intake, pt is refusing medications, refusing vitals, suspicious of staff, pointed knife at staff, who found knife under pt pillow, impulsive, insomnia Problems Active Problems: resistive to medications refusal of vitals impulsive hard to redirect Inactive Problems: no insomnia noted Pt Strengths/Limitations Ability for [place]: Poor Cognitive Functioning/Ability: Fair Communication Skills/Ability: Poor Financial Resources: Fair Insight/Judgement: Poor Intellectual Ability: Poor Physical Health: Poor Social Skills: Poor Stability in Family: Fair Stability in School/Work: Poor Verbal Skills: Fair Discharge Criteria Discharge Criteria: Adequate arrangements @DC, Improved behavior, Improved mood/thought Preliminary Discharge Plan Preliminary DC Plan: Current Living Arrange. Special Precautions Fall Risk: Low Initial D/C Plan Pt to return to [facility] Identified Discharge Needs: Referrals for psychiatric services Currently Utilized Resources Currently Utilized Resources/P: Primary Care Physician Identified Problems/Hx/Goals Objectives/Short-Term Goals Short Term Goals: Dec. Aggression, Dec. Outbursts, Medication Stabilization, Monitor Med Effects, Promote Coping Skill Short Term Goals in Patient's: na Interventions/Frequency Staff Interventions/Frequency&: Psychiatrist to assess pt at least 3x per week for medication management. Social Work to assess pt at least 2x per week to identify barriers to care and completion of final discharge plans. Nursing to assess medication effects, behavior modification and completion of 15 minute checks. Encourage participation in group activities (if applicable) or 1:1 engagement based off activity dept goals History Vocational History: Pt refused to answer questions at this time. Education: Pt refused to answer questions at this time Community Follow-up Primary Care physician Community Provider/Family Inpu: NA Treatment Plan Explained Patient/Agency Recruiter had this treatment plan explained to him/her as indicated by the signature below and has been given the opportunity to ask questions and make suggestions: Date: Patient/Agency Recruiter Signature: Status Update Update Pt is eating 90% of meals and sleeping on average 4.25 hours per night. Pt is more compliant with medications; however, she does take over 30 minutes for med pass. Pt is more social and interactive with peers. There was discussion that some of pt behaviors are more attention-seeking or a power and control scenario. Pt will have her Risperdal increased to 2mg daily. Pt facility has requested a Level II to be completed as they do not feel she is appropriate to remain with them. SHAKA spoke with [facility] and will discuss this with pt facility on process and the fact that they have to take pt back. SHAKA will keep pt dtr informed. CHARLES POPE Sep 26, 2020 13:50
[2020-09-26 16:04] VITALS: BP 107/56
[2020-09-26 20:20] VITALS: BP 123/69
[2020-09-26] MEDS: PANTOPRAZOLE 40 MG TABLET. PO SCH (20:33)
[2020-09-26] MEDS: OXYBUTYNIN CHLORIDE 5 MG TABLET PO SCH (20:33)
[2020-09-26] MEDS: MONTELUKAST 10 MG TABLET. PO SCH (20:33)
[2020-09-26] MEDS: DONEPEZIL HCL 10 MG TABLET PO SCH (20:33)
[2020-09-26] MEDS: traZODone 50 MG TABLET. PO SCH (20:33)
[2020-09-26] MEDS: MIRTAZAPINE 7.5 MG TABLET. PO SCH (20:33)
--- NOTE | 2020-09-26 21:53 | PDOC ---
Exam Note: Avni Note: Please also refer to the separate dictated note~for this date of service dictated separately.~Patient seen individually. Discussed the patient with Nursing staff reviewed the chart.~Reviewed interim history and current functioning. Reviewed vital signs,~Labs/ Radiology~and current medications noted below. Continue current treatment with the changes noted in the dictated addendum note Assessment: Vital Signs/I&O: Vital Signs Date Time Temp Pulse Resp B/P (MAP) Pulse Ox O2 Delivery O2 Flow Rate FiO2 09/26/20 20:33 61 123/69 09/26/20 16:04 98.1 18 96 09/24/20 05:59 Room Air I & O 09/25/20 09/25/20 09/26/20 14:59 22:59 06:59 Intake Total 720 ml 840 ml Balance 720 ml 840 ml Labs: Laboratory Tests Test 09/26/20 07:49 Glucose (Fingerstick) 102 mg/dL (70-99) H Current Medications: Meds: Laboratory Tests Test 09/26/20 07:49 Glucose (Fingerstick) 102 mg/dL Current Medications Medications (Trade) Dose Ordered Sig/Annika Route PRN Reason Start Time Stop Time Status Last Admin Dose Admin Acetaminophen (Tylenol) 650 mg PRN Q6HRS PRN PO MILD PAIN / TEMP > 100.3'F 09/02/20 15:00 09/02/20 16:17 DC Multi-Ingredient Ointment (Analgesic [place]) 1 hui PRN QID PRN TP MUSCLE PAIN 09/02/20 15:00 Al Hydroxide/Mg Hydroxide (Mylanta Plus Xs) 15 ml PRN AFTMEALHC PRN PO DYSPEPSIA 09/02/20 15:00 09/02/20 16:28 DC Magnesium Hydroxide (Milk Of Magnesia) 2,400 mg PRN QHS PRN PO CONSTIPATION 09/02/20 15:00 Acetaminophen (Tylenol) 650 mg PRN Q4HRS PRN PO MILD PAIN / TEMP > 100.3'F 09/02/20 16:15 Albuterol Sulfate (Ventolin Hfa Inhaler) 2 puff BID INH 09/02/20 21:00 09/26/20 20:34 Amlodipine Besylate (Norvasc) 10 mg DAILY PO 09/03/20 09:00 09/26/20 09:30 Atenolol (Tenormin) 50 mg DAILY PO 09/03/20 09:00 09/26/20 09:30 Bupropion HCl (Wellbutrin Xl) 300 mg DAILY PO 09/03/20 09:00 09/26/20 09:32 Divalproex Sodium (Depakote Er) 1,500 mg QHS PO 09/02/20 21:00 09/08/20 20:12 DC 09/07/20 19:41 Docusate Sodium (Colace) 100 mg DAILY PO 09/03/20 09:00 09/26/20 09:32 Donepezil HCl (Aricept) 10 mg HS PO 09/02/20 21:00 09/26/20 20:33 Ferrous Sulfate (Feosol) 325 mg DAILY PO 09/03/20 09:00 09/26/20 09:32 Furosemide (Lasix) 40 mg DAILY PO 09/03/20 09:00 09/26/20 09:31 Guaifenesin (Mucinex Er) 1,200 mg BID PO 09/02/20 21:00 09/26/20 20:34 Hydralazine HCl (Apresoline) 25 mg TID PO 09/02/20 21:00 09/26/20 20:33 Levothyroxine Sodium (Synthroid) 125 mcg DAILY06 PO 09/03/20 06:00 09/26/20 05:55 Al Hydroxide/Mg Hydroxide (Mylanta Plus Xs) 30 ml PRN Q2HRS PRN PO DYSPEPSIA 09/02/20 16:15 Multi-Ingredient Ointment (Analgesic [place]) 1 hui PRN QID PRN TP MUSCLE PAIN 09/02/20 16:15 09/02/20 16:29 DC Montelukast Sodium (Singulair) 10 mg HS PO 09/02/20 21:00 09/26/20 20:33 Olanzapine (ZyPREXA ZYDIS) 2.5 mg PRN Q2HRS PRN PO psychosis/agitation 09/02/20 16:15 09/02/20 16:20 DC Pantoprazole Sodium (Protonix) 40 mg HS PO 09/02/20 21:00 09/26/20 20:33 Polyethylene Glycol (miraLAX) 17 gm DAILY PO 09/03/20 09:00 09/26/20 09:33 Artificial Tears (Artificial Tears) 2 drop BID OU 09/02/20 21:00 09/26/20 20:34 Risperidone (RisperDAL) 0.25 mg QHS PO 09/02/20 21:00 09/07/20 16:47 DC 09/06/20 20:54 Risperidone (RisperDAL) 1 mg QHS PO 09/02/20 21:00 09/07/20 16:47 DC 09/06/20 20:55 Trazodone HCl (Desyrel) 50 mg HS PO 09/02/20 21:00 09/26/20 20:33 Trazodone HCl (Desyrel) 50 mg PRN QHS PRN PO insomnia 09/02/20 16:15 Calcium/Vitamin D (Oscal D 500mg/ 200uts) 1 tab DAILY PO 09/03/20 09:00 09/26/20 09:30 Fluticasone Propionate (Flonase) 2 spray DAILY NS 09/03/20 09:00 09/26/20 09:00 Magnesium Chloride (Mag Delay) 64 mg DAILY PO 09/03/20 09:00 09/26/20 09:32 Non-Formulary Medication (Magnesium Hydroxide (Milk Of Magnesia)) 2,400 mg PRN QHS PRN PO CONSTIPATION 09/02/20 16:15 09/02/20 16:32 DC Metformin HCl (Glucophage) 1,000 mg DAILYWBKFT PO 09/03/20 08:00 09/26/20 09:30 Multivitamins/ Calcium (Thera-M Plus) 1 tab DAILY PO 09/03/20 09:00 09/26/20 09:32 Oxybutynin Chloride (Ditropan) 5 mg QHS PO 09/02/20 21:00 09/26/20 20:33 Guaifenesin (Robitussin) 100 mg PRN Q2HRS PRN PO COUGH 09/02/20 16:30 Hydrocortisone Acetate (Anucort-Hc) 25 mg PRN DAILY PRN RC RECTAL PAIN 09/02/20 16:30 Haloperidol (Haldol) 0.5 mg DAILY PO 09/08/20 09:00 09/16/20 18:34 DC 09/16/20 08:49 Valproic Acid (Depakene) 750 mg BID PO 09/08/20 21:00 09/26/20 20:33 Haloperidol (Haldol) 0.5 mg HS PO 09/17/20 21:00 09/19/20 14:00 DC 09/18/20 20:10 Mirtazapine (Remeron) 7.5 mg QHS PO 09/18/20 21:00 09/22/20 17:31 DC 09/21/20 20:33 Risperidone (RisperDAL) 1 mg 1X ONCE PO 09/19/20 14:00 09/19/20 14:06 DC 09/19/20 14:44 Risperidone (RisperDAL) 1.5 mg DAILY PO 09/20/20 09:00 09/26/20 18:01 DC 09/26/20 09:31 Mirtazapine (Remeron) 15 mg QHS PO 09/22/20 21:00 09/26/20 20:33 Risperidone (RisperDAL) 2 mg DAILY PO 09/27/20 09:00 I have reviewed the current psychotropics carefully including drug interactions. Risk benefit ratio favors no change other than as noted in my dictated progress note. Diagnosis: Problems: (1) Impulse control disorder, unspecified (2) Anxiety disorder, unspecified (3) Bipolar disorder, curr episode mixed, severe, with psychotic features JABARI ARBOLEDA MD Sep 26, 2020 21:53
[2020-09-27 05:45] VITALS: BP 158/78
[2020-09-27] MEDS: LEVOTHYROXINE 125 MCG TABLET PO SCH (05:51)
--- NOTE | 2020-09-27 06:51 | PDOC ---
Exam Note: Avni Note: This note is a late entry for 09/24/2020 covers elements not covered in my initial note. Subjective: The patient was seen individually in the evening of 09/24/2020 with Nat BOND, discussed and reviewed the chart. She slept 7 hours previous night. The patient has been fairly quiet, somewhat withdrawn. She sleeps in late. No disruptive behaviors noted. At times she is resistive to medications, took it later. She is very pleasant and interactive as I met with her, giving me thumbs up. Review of Systems: Ambulation impaired with walker. No CV, , pulmonary, eye, ENT system symptoms on review. Mental Status Exam: The patient is oriented to herself. Speech has some moderate latency. Often response is monosyllabic. Abstraction is fair. Computation impaired. Language function is intact. Attention span is short. Mood and affect is withdrawn. Laboratory Data: Reviewed. Impression: Bipolar disorder mixed with psychotic features in partial remission. Anxiety disorder unspecified. Impulse control disorder unspecified. Plan: No change from initial note. Assessment: Vital Signs/I&O: Vital Signs Date Time Temp Pulse Resp B/P (MAP) Pulse Ox O2 Delivery O2 Flow Rate FiO2 09/27/20 05:45 97.5 79 20 158/78 (104) 94 09/24/20 05:59 Room Air I & O 09/26/20 09/26/20 09/27/20 14:59 22:59 06:59 Intake Total 600 ml 480 ml Balance 600 ml 480 ml Labs: Laboratory Tests Test 09/26/20 07:49 Glucose (Fingerstick) 102 mg/dL (70-99) H Current Medications: Meds: Laboratory Tests Test 09/26/20 07:49 Glucose (Fingerstick) 102 mg/dL Current Medications Medications (Trade) Dose Ordered Sig/Annika Route PRN Reason Start Time Stop Time Status Last Admin Dose Admin Acetaminophen (Tylenol) 650 mg PRN Q6HRS PRN PO MILD PAIN / TEMP > 100.3'F 09/02/20 15:00 09/02/20 16:17 DC Multi-Ingredient Ointment (Analgesic [place]) 1 hui PRN QID PRN TP MUSCLE PAIN 09/02/20 15:00 Al Hydroxide/Mg Hydroxide (Mylanta Plus Xs) 15 ml PRN AFTMEALHC PRN PO DYSPEPSIA 09/02/20 15:00 09/02/20 16:28 DC Magnesium Hydroxide (Milk Of Magnesia) 2,400 mg PRN QHS PRN PO CONSTIPATION 09/02/20 15:00 Acetaminophen (Tylenol) 650 mg PRN Q4HRS PRN PO MILD PAIN / TEMP > 100.3'F 09/02/20 16:15 Albuterol Sulfate (Ventolin Hfa Inhaler) 2 puff BID INH 09/02/20 21:00 09/26/20 20:34 Amlodipine Besylate (Norvasc) 10 mg DAILY PO 09/03/20 09:00 09/26/20 09:30 Atenolol (Tenormin) 50 mg DAILY PO 09/03/20 09:00 09/26/20 09:30 Bupropion HCl (Wellbutrin Xl) 300 mg DAILY PO 09/03/20 09:00 09/26/20 09:32 Divalproex Sodium (Depakote Er) 1,500 mg QHS PO 09/02/20 21:00 09/08/20 20:12 DC 09/07/20 19:41 Docusate Sodium (Colace) 100 mg DAILY PO 09/03/20 09:00 09/26/20 09:32 Donepezil HCl (Aricept) 10 mg HS PO 09/02/20 21:00 09/26/20 20:33 Ferrous Sulfate (Feosol) 325 mg DAILY PO 09/03/20 09:00 09/26/20 09:32 Furosemide (Lasix) 40 mg DAILY PO 09/03/20 09:00 09/26/20 09:31 Guaifenesin (Mucinex Er) 1,200 mg BID PO 09/02/20 21:00 09/26/20 20:34 Hydralazine HCl (Apresoline) 25 mg TID PO 09/02/20 21:00 09/26/20 20:33 Levothyroxine Sodium (Synthroid) 125 mcg DAILY06 PO 09/03/20 06:00 09/27/20 05:51 Al Hydroxide/Mg Hydroxide (Mylanta Plus Xs) 30 ml PRN Q2HRS PRN PO DYSPEPSIA 09/02/20 16:15 Multi-Ingredient Ointment (Analgesic [place]) 1 hui PRN QID PRN TP MUSCLE PAIN 09/02/20 16:15 09/02/20 16:29 DC Montelukast Sodium (Singulair) 10 mg HS PO 09/02/20 21:00 09/26/20 20:33 Olanzapine (ZyPREXA ZYDIS) 2.5 mg PRN Q2HRS PRN PO psychosis/agitation 09/02/20 16:15 09/02/20 16:20 DC Pantoprazole Sodium (Protonix) 40 mg HS PO 09/02/20 21:00 09/26/20 20:33 Polyethylene Glycol (miraLAX) 17 gm DAILY PO 09/03/20 09:00 09/26/20 09:33 Artificial Tears (Artificial Tears) 2 drop BID OU 09/02/20 21:00 09/26/20 20:34 Risperidone (RisperDAL) 0.25 mg QHS PO 09/02/20 21:00 09/07/20 16:47 DC 09/06/20 20:54 Risperidone (RisperDAL) 1 mg QHS PO 09/02/20 21:00 09/07/20 16:47 DC 09/06/20 20:55 Trazodone HCl (Desyrel) 50 mg HS PO 09/02/20 21:00 09/26/20 20:33 Trazodone HCl (Desyrel) 50 mg PRN QHS PRN PO insomnia 09/02/20 16:15 Calcium/Vitamin D (Oscal D 500mg/ 200uts) 1 tab DAILY PO 09/03/20 09:00 09/26/20 09:30 Fluticasone Propionate (Flonase) 2 spray DAILY NS 09/03/20 09:00 09/26/20 09:00 Magnesium Chloride (Mag Delay) 64 mg DAILY PO 09/03/20 09:00 09/26/20 09:32 Non-Formulary Medication (Magnesium Hydroxide (Milk Of Magnesia)) 2,400 mg PRN QHS PRN PO CONSTIPATION 09/02/20 16:15 09/02/20 16:32 DC Metformin HCl (Glucophage) 1,000 mg DAILYWBKFT PO 09/03/20 08:00 09/26/20 09:30 Multivitamins/ Calcium (Thera-M Plus) 1 tab DAILY PO 09/03/20 09:00 09/26/20 09:32 Oxybutynin Chloride (Ditropan) 5 mg QHS PO 09/02/20 21:00 09/26/20 20:33 Guaifenesin (Robitussin) 100 mg PRN Q2HRS PRN PO COUGH 09/02/20 16:30 Hydrocortisone Acetate (Anucort-Hc) 25 mg PRN DAILY PRN RC RECTAL PAIN 09/02/20 16:30 Haloperidol (Haldol) 0.5 mg DAILY PO 09/08/20 09:00 09/16/20 18:34 DC 09/16/20 08:49 Valproic Acid (Depakene) 750 mg BID PO 09/08/20 21:00 09/26/20 20:33 Haloperidol (Haldol) 0.5 mg HS PO 09/17/20 21:00 09/19/20 14:00 DC 09/18/20 20:10 Mirtazapine (Remeron) 7.5 mg QHS PO 09/18/20 21:00 09/22/20 17:31 DC 09/21/20 20:33 Risperidone (RisperDAL) 1 mg 1X ONCE PO 09/19/20 14:00 09/19/20 14:06 DC 09/19/20 14:44 Risperidone (RisperDAL) 1.5 mg DAILY PO 09/20/20 09:00 09/26/20 18:01 DC 09/26/20 09:31 Mirtazapine (Remeron) 15 mg QHS PO 09/22/20 21:00 09/26/20 20:33 Risperidone (RisperDAL) 2 mg DAILY PO 09/27/20 09:00 I have reviewed the current psychotropics carefully including drug interactions. Risk benefit ratio favors no change other than as noted in my dictated progress note. Diagnosis: Problems: (1) Impulse control disorder, unspecified (2) Anxiety disorder, unspecified (3) Bipolar disorder, curr episode mixed, severe, with psychotic features JABARI ARBOLEDA MD Sep 27, 2020 06:51
--- NOTE | 2020-09-27 07:14 | PDOC ---
Exam Note: Avni Note: This note is a late entry for 09/25/2020 covers elements not covered in my initial note. Subjective: The patient was seen individually in the evening of 09/25/2020 with Cassie BOND, discussed and reviewed the chart. She slept just 3/4 hours previous night. The patient is compliant with medications. She was pacing previous night, somewhat withdrawn but coming out of the dayroom. She is pleasant, giving me thumbs up as I met with her in the dayroom which is what she did the day before as well. Review of Systems: Ambulation impaired with walker. No CV, , pulmonary, eye, ENT system symptoms on review. Mental Status Exam: The patient is oriented to herself. Speech has some moderate latency. Often response is monosyllabic. Abstraction is fair. Computation impaired. Language function is intact. Attention span is short. Mood and affect is withdrawn. Laboratory Data: Reviewed. Impression: Bipolar disorder mixed with psychotic features in partial remission. Anxiety disorder unspecified. Impulse control disorder unspecified. Plan: No change from initial note. Assessment: Vital Signs/I&O: Vital Signs Date Time Temp Pulse Resp B/P (MAP) Pulse Ox O2 Delivery O2 Flow Rate FiO2 09/27/20 05:45 97.5 79 20 158/78 (104) 94 09/24/20 05:59 Room Air I & O 09/26/20 09/26/20 09/27/20 15:00 23:00 07:00 Intake Total 600 ml 480 ml Balance 600 ml 480 ml Labs: Laboratory Tests Test 09/26/20 07:49 Glucose (Fingerstick) 102 mg/dL (70-99) H Current Medications: Meds: Laboratory Tests Test 09/26/20 07:49 Glucose (Fingerstick) 102 mg/dL Current Medications Medications (Trade) Dose Ordered Sig/Annika Route PRN Reason Start Time Stop Time Status Last Admin Dose Admin Acetaminophen (Tylenol) 650 mg PRN Q6HRS PRN PO MILD PAIN / TEMP > 100.3'F 09/02/20 15:00 09/02/20 16:17 DC Multi-Ingredient Ointment (Analgesic [place]) 1 hui PRN QID PRN TP MUSCLE PAIN 09/02/20 15:00 Al Hydroxide/Mg Hydroxide (Mylanta Plus Xs) 15 ml PRN AFTMEALHC PRN PO DYSPEPSIA 09/02/20 15:00 09/02/20 16:28 DC Magnesium Hydroxide (Milk Of Magnesia) 2,400 mg PRN QHS PRN PO CONSTIPATION 09/02/20 15:00 Acetaminophen (Tylenol) 650 mg PRN Q4HRS PRN PO MILD PAIN / TEMP > 100.3'F 09/02/20 16:15 Albuterol Sulfate (Ventolin Hfa Inhaler) 2 puff BID INH 09/02/20 21:00 09/26/20 20:34 Amlodipine Besylate (Norvasc) 10 mg DAILY PO 09/03/20 09:00 09/26/20 09:30 Atenolol (Tenormin) 50 mg DAILY PO 09/03/20 09:00 09/26/20 09:30 Bupropion HCl (Wellbutrin Xl) 300 mg DAILY PO 09/03/20 09:00 09/26/20 09:32 Divalproex Sodium (Depakote Er) 1,500 mg QHS PO 09/02/20 21:00 09/08/20 20:12 DC 09/07/20 19:41 Docusate Sodium (Colace) 100 mg DAILY PO 09/03/20 09:00 09/26/20 09:32 Donepezil HCl (Aricept) 10 mg HS PO 09/02/20 21:00 09/26/20 20:33 Ferrous Sulfate (Feosol) 325 mg DAILY PO 09/03/20 09:00 09/26/20 09:32 Furosemide (Lasix) 40 mg DAILY PO 09/03/20 09:00 09/26/20 09:31 Guaifenesin (Mucinex Er) 1,200 mg BID PO 09/02/20 21:00 09/26/20 20:34 Hydralazine HCl (Apresoline) 25 mg TID PO 09/02/20 21:00 09/26/20 20:33 Levothyroxine Sodium (Synthroid) 125 mcg DAILY06 PO 09/03/20 06:00 09/27/20 05:51 Al Hydroxide/Mg Hydroxide (Mylanta Plus Xs) 30 ml PRN Q2HRS PRN PO DYSPEPSIA 09/02/20 16:15 Multi-Ingredient Ointment (Analgesic [place]) 1 hui PRN QID PRN TP MUSCLE PAIN 09/02/20 16:15 09/02/20 16:29 DC Montelukast Sodium (Singulair) 10 mg HS PO 09/02/20 21:00 09/26/20 20:33 Olanzapine (ZyPREXA ZYDIS) 2.5 mg PRN Q2HRS PRN PO psychosis/agitation 09/02/20 16:15 09/02/20 16:20 DC Pantoprazole Sodium (Protonix) 40 mg HS PO 09/02/20 21:00 09/26/20 20:33 Polyethylene Glycol (miraLAX) 17 gm DAILY PO 09/03/20 09:00 09/26/20 09:33 Artificial Tears (Artificial Tears) 2 drop BID OU 09/02/20 21:00 09/26/20 20:34 Risperidone (RisperDAL) 0.25 mg QHS PO 09/02/20 21:00 09/07/20 16:47 DC 09/06/20 20:54 Risperidone (RisperDAL) 1 mg QHS PO 09/02/20 21:00 09/07/20 16:47 DC 09/06/20 20:55 Trazodone HCl (Desyrel) 50 mg HS PO 09/02/20 21:00 09/26/20 20:33 Trazodone HCl (Desyrel) 50 mg PRN QHS PRN PO insomnia 09/02/20 16:15 Calcium/Vitamin D (Oscal D 500mg/ 200uts) 1 tab DAILY PO 09/03/20 09:00 09/26/20 09:30 Fluticasone Propionate (Flonase) 2 spray DAILY NS 09/03/20 09:00 09/26/20 09:00 Magnesium Chloride (Mag Delay) 64 mg DAILY PO 09/03/20 09:00 09/26/20 09:32 Non-Formulary Medication (Magnesium Hydroxide (Milk Of Magnesia)) 2,400 mg PRN QHS PRN PO CONSTIPATION 09/02/20 16:15 09/02/20 16:32 DC Metformin HCl (Glucophage) 1,000 mg DAILYWBKFT PO 09/03/20 08:00 09/26/20 09:30 Multivitamins/ Calcium (Thera-M Plus) 1 tab DAILY PO 09/03/20 09:00 4/22/21 09:32 Oxybutynin Chloride (Ditropan) 5 mg QHS PO 09/02/20 21:00 09/26/20 20:33 Guaifenesin (Robitussin) 100 mg PRN Q2HRS PRN PO COUGH 09/02/20 16:30 Hydrocortisone Acetate (Anucort-Hc) 25 mg PRN DAILY PRN RC RECTAL PAIN 09/02/20 16:30 Haloperidol (Haldol) 0.5 mg DAILY PO 09/08/20 09:00 09/16/20 18:34 DC 09/16/20 08:49 Valproic Acid (Depakene) 750 mg BID PO 09/08/20 21:00 09/26/20 20:33 Haloperidol (Haldol) 0.5 mg HS PO 09/17/20 21:00 09/19/20 14:00 DC 09/18/20 20:10 Mirtazapine (Remeron) 7.5 mg QHS PO 09/18/20 21:00 09/22/20 17:31 DC 09/21/20 20:33 Risperidone (RisperDAL) 1 mg 1X ONCE PO 09/19/20 14:00 09/19/20 14:06 DC 09/19/20 14:44 Risperidone (RisperDAL) 1.5 mg DAILY PO 09/20/20 09:00 09/26/20 18:01 DC 09/26/20 09:31 Mirtazapine (Remeron) 15 mg QHS PO 09/22/20 21:00 09/26/20 20:33 Risperidone (RisperDAL) 2 mg DAILY PO 09/27/20 09:00 I have reviewed the current psychotropics carefully including drug interactions. Risk benefit ratio favors no change other than as noted in my dictated progress note. Diagnosis: Problems: (1) Impulse control disorder, unspecified (2) Anxiety disorder, unspecified (3) Bipolar disorder, curr episode mixed, severe, with psychotic features JABARI ARBOLEDA MD Sep 27, 2020 07:14
--- NOTE | 2020-09-27 07:35 | PDOC ---
Exam Note: [facility] Note: This note is a late entry for 09/26/2020 covers elements not covered in my initial note. Subjective: The patient was reviewed in the morning of 09/26/2020 for a treatment team meeting with Karlee Perdue, Melvi Teague and Mary (hospice social worker), Candice, activity therapy and Juliet RN, discussed and reviewed the chart. She slept 6-3/4 hours previous night. Overall the patient is frequently wanting to be taken back to her room to lie in bed. She did take her medications previous night, resistive to medications but has not been dumping and throwing the medications at nursing staff like she did shortly after admission. She does go to some groups as well. At some point once she returns to the [facility] they may pursue level to placement given her primary psychiatric diagnosis. We will be looking at transition to a lower level of care next week. Review of Systems: Ambulation impaired with walker. No CV, , pulmonary, eye, ENT system symptoms on review. Mental Status Exam: The patient is oriented to herself. She is pleasant, verbal, interactive. Often verbal response is monosyllabic. Abstraction is fair. Computation impaired. Language function is intact. Attention span is short. Mood and affect is withdrawn. Laboratory Data: Reviewed. Impression: Bipolar disorder mixed with psychotic features in partial remission. Anxiety disorder unspecified. Impulse control disorder unspecified. Plan: We had a lengthy discussion about her diagnoses, discharge plans for next week. We will increase Risperdal from 1.5 mg daily to 2 mg daily. Maintain Wellbutrin, Depakene, Aricept, trazodone as before and Remeron 15 mg h.s. Assessment: Vital Signs/I&O: Vital Signs Date Time Temp Pulse Resp B/P (MAP) Pulse Ox O2 Delivery O2 Flow Rate FiO2 09/27/20 05:45 97.5 79 20 158/78 (104) 94 09/24/20 05:59 Room Air I & O 09/26/20 09/26/20 09/27/20 15:00 23:00 07:00 Intake Total 600 ml 480 ml Balance 600 ml 480 ml Labs: Laboratory Tests Test 09/26/20 07:49 Glucose (Fingerstick) 102 mg/dL (70-99) H Current Medications: Meds: Laboratory Tests Test 09/26/20 07:49 Glucose (Fingerstick) 102 mg/dL Current Medications Medications (Trade) Dose Ordered Sig/Annika Route PRN Reason Start Time Stop Time Status Last Admin Dose Admin Acetaminophen (Tylenol) 650 mg PRN Q6HRS PRN PO MILD PAIN / TEMP > 100.3'F 09/02/20 15:00 09/02/20 16:17 DC Multi-Ingredient Ointment (Analgesic [place]) 1 hui PRN QID PRN TP MUSCLE PAIN 09/02/20 15:00 Al Hydroxide/Mg Hydroxide (Mylanta Plus Xs) 15 ml PRN AFTMEALHC PRN PO DYSPEPSIA 09/02/20 15:00 09/02/20 16:28 DC Magnesium Hydroxide (Milk Of Magnesia) 2,400 mg PRN QHS PRN PO CONSTIPATION 09/02/20 15:00 Acetaminophen (Tylenol) 650 mg PRN Q4HRS PRN PO MILD PAIN / TEMP > 100.3'F 09/02/20 16:15 Albuterol Sulfate (Ventolin Hfa Inhaler) 2 puff BID INH 09/02/20 21:00 09/26/20 20:34 Amlodipine Besylate (Norvasc) 10 mg DAILY PO 09/03/20 09:00 09/26/20 09:30 Atenolol (Tenormin) 50 mg DAILY PO 09/03/20 09:00 09/26/20 09:30 Bupropion HCl (Wellbutrin Xl) 300 mg DAILY PO 09/03/20 09:00 09/26/20 09:32 Divalproex Sodium (Depakote Er) 1,500 mg QHS PO 09/02/20 21:00 09/08/20 20:12 DC 09/07/20 19:41 Docusate Sodium (Colace) 100 mg DAILY PO 09/03/20 09:00 09/26/20 09:32 Donepezil HCl (Aricept) 10 mg HS PO 09/02/20 21:00 09/26/20 20:33 Ferrous Sulfate (Feosol) 325 mg DAILY PO 09/03/20 09:00 09/26/20 09:32 Furosemide (Lasix) 40 mg DAILY PO 09/03/20 09:00 09/26/20 09:31 Guaifenesin (Mucinex Er) 1,200 mg BID PO 09/02/20 21:00 09/26/20 20:34 Hydralazine HCl (Apresoline) 25 mg TID PO 09/02/20 21:00 09/26/20 20:33 Levothyroxine Sodium (Synthroid) 125 mcg DAILY06 PO 09/03/20 06:00 09/27/20 05:51 Al Hydroxide/Mg Hydroxide (Mylanta Plus Xs) 30 ml PRN Q2HRS PRN PO DYSPEPSIA 09/02/20 16:15 Multi-Ingredient Ointment (Analgesic [place]) 1 hui PRN QID PRN TP MUSCLE PAIN 09/02/20 16:15 09/02/20 16:29 DC Montelukast Sodium (Singulair) 10 mg HS PO 09/02/20 21:00 09/26/20 20:33 Olanzapine (ZyPREXA ZYDIS) 2.5 mg PRN Q2HRS PRN PO psychosis/agitation 09/02/20 16:15 09/02/20 16:20 DC Pantoprazole Sodium (Protonix) 40 mg HS PO 09/02/20 21:00 09/26/20 20:33 Polyethylene Glycol (miraLAX) 17 gm DAILY PO 09/03/20 09:00 09/26/20 09:33 Artificial Tears (Artificial Tears) 2 drop BID OU 09/02/20 21:00 09/26/20 20:34 Risperidone (RisperDAL) 0.25 mg QHS PO 09/02/20 21:00 09/07/20 16:47 DC 09/06/20 20:54 Risperidone (RisperDAL) 1 mg QHS PO 09/02/20 21:00 09/07/20 16:47 DC 09/06/20 20:55 Trazodone HCl (Desyrel) 50 mg HS PO 09/02/20 21:00 09/26/20 20:33 Trazodone HCl (Desyrel) 50 mg PRN QHS PRN PO insomnia 09/02/20 16:15 Calcium/Vitamin D (Oscal D 500mg/ 200uts) 1 tab DAILY PO 09/03/20 09:00 09/26/20 09:30 Fluticasone Propionate (Flonase) 2 spray DAILY NS 09/03/20 09:00 09/26/20 09:00 Magnesium Chloride (Mag Delay) 64 mg DAILY PO 09/03/20 09:00 09/26/20 09:32 Non-Formulary Medication (Magnesium Hydroxide (Milk Of Magnesia)) 2,400 mg PRN QHS PRN PO CONSTIPATION 09/02/20 16:15 09/02/20 16:32 DC Metformin HCl (Glucophage) 1,000 mg DAILYWBKFT PO 09/03/20 08:00 09/26/20 09:30 Multivitamins/ Calcium (Thera-M Plus) 1 tab DAILY PO 09/03/20 09:00 09/26/20 09:32 Oxybutynin Chloride (Ditropan) 5 mg QHS PO 09/02/20 21:00 09/26/20 20:33 Guaifenesin (Robitussin) 100 mg PRN Q2HRS PRN PO COUGH 09/02/20 16:30 Hydrocortisone Acetate (Anucort-Hc) 25 mg PRN DAILY PRN RC RECTAL PAIN 09/02/20 16:30 Haloperidol (Haldol) 0.5 mg DAILY PO 09/08/20 09:00 09/16/20 18:34 DC 09/16/20 08:49 Valproic Acid (Depakene) 750 mg BID PO 09/08/20 21:00 09/26/20 20:33 Haloperidol (Haldol) 0.5 mg HS PO 09/17/20 21:00 09/19/20 14:00 DC 09/18/20 20:10 Mirtazapine (Remeron) 7.5 mg QHS PO 09/18/20 21:00 09/22/20 17:31 DC 09/21/20 20:33 Risperidone (RisperDAL) 1 mg 1X ONCE PO 09/19/20 14:00 09/19/20 14:06 DC 09/19/20 14:44 Risperidone (RisperDAL) 1.5 mg DAILY PO 09/20/20 09:00 09/26/20 18:01 DC 09/26/20 09:31 Mirtazapine (Remeron) 15 mg QHS PO 09/22/20 21:00 09/26/20 20:33 Risperidone (RisperDAL) 2 mg DAILY PO 09/27/20 09:00 I have reviewed the current psychotropics carefully including drug interactions. Risk benefit ratio favors no change other than as noted in my dictated progress note. Diagnosis: Problems: (1) Impulse control disorder, unspecified (2) Anxiety disorder, unspecified (3) Bipolar disorder, curr episode mixed, severe, with psychotic features JABARI ARBOLEDA MD Sep 27, 2020 07:35
[2020-09-27] MEDS: POLYVINYL ALCOHOL 1.4% OPHTH SOLUTION 15ML BOTTLE. OU SCH ×2 (08:18→20:15)
[2020-09-27] MEDS: ALBUTEROL SULFATE 8GM INHALER. INH SCH ×2 (08:18→20:17)
[2020-09-27] MEDS: FLUTICASONE 50MCG/NASAL SPRAY 16GM BOTTLE. NS SCH (08:18)
[2020-09-27] MEDS: VALPROATE ACID 250 MG/5 ML ORAL SOLUTION PO SCH ×2 (08:19→20:16)
[2020-09-27] MEDS: buPROPion XL 300 MG TAB.ER.24H. PO SCH (08:19)
[2020-09-27] MEDS: FUROSEMIDE 40 MG TABLET PO SCH (08:19)
[2020-09-27] MEDS: MULTIVITAMIN with MINERAL TABLET. PO SCH (08:19)
[2020-09-27] MEDS: ATENOLOL 50 MG TABLET PO SCH (08:20)
[2020-09-27] MEDS: CALCIUM CARB/VIT D3 500/200 TABLET PO SCH (08:20)
[2020-09-27] MEDS: FERROUS SULFATE 325 MG TABLET. PO SCH (08:20)
[2020-09-27] MEDS: risperiDONE 2 MG TABLET. PO SCH (08:20)
[2020-09-27] MEDS: metFORMIN 500 MG TABLET PO SCH (08:20)
[2020-09-27] MEDS: DOCUSATE SODIUM 100 MG CAPSULE PO SCH (08:20)
[2020-09-27] MEDS: MAGNESIUM CHLORIDE ER 64 MG TABLET.ER PO SCH (08:20)
[2020-09-27] MEDS: hydrALAZINE 25 MG TABLET PO SCH ×3 (08:23→20:17)
[2020-09-27] MEDS: POLYETHYLENE GLYCOL 3350 17 GM PACKET. PO SCH (08:23)
[2020-09-27] MEDS: amLODIPine BESYLATE 10 MG TABLET PO SCH (08:24)
[2020-09-27 15:30] VITALS: BP 136/80
[2020-09-27] MEDS: OXYBUTYNIN CHLORIDE 5 MG TABLET PO SCH (20:16)
[2020-09-27] MEDS: MONTELUKAST 10 MG TABLET. PO SCH (20:16)
[2020-09-27] MEDS: PANTOPRAZOLE 40 MG TABLET. PO SCH (20:16)
[2020-09-27] MEDS: DONEPEZIL HCL 10 MG TABLET PO SCH (20:17)
[2020-09-27] MEDS: MIRTAZAPINE 7.5 MG TABLET. PO SCH (20:17)
[2020-09-27] MEDS: traZODone 50 MG TABLET. PO SCH (20:17)
--- NOTE | 2020-09-27 21:58 | PDOC ---
Exam Note: [facility] Note: Please also refer to the separate dictated note~for this date of service dictated separately.~Patient seen individually. Discussed the patient with Nursing staff reviewed the chart.~Reviewed interim history and current functioning. Reviewed vital signs,~Labs/ Radiology~and current medications noted below. Continue current treatment with the changes noted in the dictated addendum note Assessment: Vital Signs/I&O: Vital Signs Date Time Temp Pulse Resp B/P (MAP) Pulse Ox O2 Delivery O2 Flow Rate FiO2 09/27/20 20:17 62 136/80 09/27/20 15:30 97.8 16 99 Room Air I & O 09/26/20 09/26/20 09/27/20 15:00 23:00 07:00 Intake Total 600 ml 480 ml Balance 600 ml 480 ml Labs: Laboratory Tests Test 09/27/20 07:40 Glucose (Fingerstick) 99 mg/dL (70-99) Current Medications: Meds: Laboratory Tests Test 09/27/20 07:40 Glucose (Fingerstick) 99 mg/dL Current Medications Medications (Trade) Dose Ordered Sig/Annika Route PRN Reason Start Time Stop Time Status Last Admin Dose Admin Acetaminophen (Tylenol) 650 mg PRN Q6HRS PRN PO MILD PAIN / TEMP > 100.3'F 09/02/20 15:00 09/02/20 16:17 DC Multi-Ingredient Ointment (Analgesic [place]) 1 hui PRN QID PRN TP MUSCLE PAIN 09/02/20 15:00 Al Hydroxide/Mg Hydroxide (Mylanta Plus Xs) 15 ml PRN AFTMEALHC PRN PO DYSPEPSIA 09/02/20 15:00 09/02/20 16:28 DC Magnesium Hydroxide (Milk Of Magnesia) 2,400 mg PRN QHS PRN PO CONSTIPATION 09/02/20 15:00 Acetaminophen (Tylenol) 650 mg PRN Q4HRS PRN PO MILD PAIN / TEMP > 100.3'F 09/02/20 16:15 Albuterol Sulfate (Ventolin Hfa Inhaler) 2 puff BID INH 09/02/20 21:00 09/27/20 20:17 Amlodipine Besylate (Norvasc) 10 mg DAILY PO 09/03/20 09:00 09/27/20 08:24 Atenolol (Tenormin) 50 mg DAILY PO 09/03/20 09:00 09/27/20 08:20 Bupropion HCl (Wellbutrin Xl) 300 mg DAILY PO 09/03/20 09:00 09/27/20 08:19 Divalproex Sodium (Depakote Er) 1,500 mg QHS PO 09/02/20 21:00 09/08/20 20:12 DC 09/07/20 19:41 Docusate Sodium (Colace) 100 mg DAILY PO 09/03/20 09:00 09/27/20 08:20 Donepezil HCl (Aricept) 10 mg HS PO 09/02/20 21:00 09/27/20 20:17 Ferrous Sulfate (Feosol) 325 mg DAILY PO 09/03/20 09:00 09/27/20 08:20 Furosemide (Lasix) 40 mg DAILY PO 09/03/20 09:00 09/27/20 08:19 Guaifenesin (Mucinex Er) 1,200 mg BID PO 09/02/20 21:00 09/27/20 20:16 Hydralazine HCl (Apresoline) 25 mg TID PO 09/02/20 21:00 09/27/20 20:17 Levothyroxine Sodium (Synthroid) 125 mcg DAILY06 PO 09/03/20 06:00 09/27/20 05:51 Al Hydroxide/Mg Hydroxide (Mylanta Plus Xs) 30 ml PRN Q2HRS PRN PO DYSPEPSIA 09/02/20 16:15 Multi-Ingredient Ointment (Analgesic [place]) 1 hui PRN QID PRN TP MUSCLE PAIN 09/02/20 16:15 09/02/20 16:29 DC Montelukast Sodium (Singulair) 10 mg HS PO 09/02/20 21:00 09/27/20 20:16 Olanzapine (ZyPREXA ZYDIS) 2.5 mg PRN Q2HRS PRN PO psychosis/agitation 09/02/20 16:15 09/02/20 16:20 DC Pantoprazole Sodium (Protonix) 40 mg HS PO 09/02/20 21:00 09/27/20 20:16 Polyethylene Glycol (miraLAX) 17 gm DAILY PO 09/03/20 09:00 09/26/20 09:33 Artificial Tears (Artificial Tears) 2 drop BID OU 09/02/20 21:00 09/27/20 20:15 Risperidone (RisperDAL) 0.25 mg QHS PO 09/02/20 21:00 09/07/20 16:47 DC 09/06/20 20:54 Risperidone (RisperDAL) 1 mg QHS PO 09/02/20 21:00 09/07/20 16:47 DC 09/06/20 20:55 Trazodone HCl (Desyrel) 50 mg HS PO 09/02/20 21:00 09/27/20 20:17 Trazodone HCl (Desyrel) 50 mg PRN QHS PRN PO insomnia 09/02/20 16:15 Calcium/Vitamin D (Oscal D 500mg/ 200uts) 1 tab DAILY PO 09/03/20 09:00 09/27/20 08:20 Fluticasone Propionate (Flonase) 2 spray DAILY NS 09/03/20 09:00 09/27/20 08:18 Magnesium Chloride (Mag Delay) 64 mg DAILY PO 09/03/20 09:00 09/27/20 08:20 Non-Formulary Medication (Magnesium Hydroxide (Milk Of Magnesia)) 2,400 mg PRN QHS PRN PO CONSTIPATION 09/02/20 16:15 09/02/20 16:32 DC Metformin HCl (Glucophage) 1,000 mg DAILYWBKFT PO 09/03/20 08:00 09/27/20 08:20 Multivitamins/ Calcium (Thera-M Plus) 1 tab DAILY PO 09/03/20 09:00 09/27/20 08:19 Oxybutynin Chloride (Ditropan) 5 mg QHS PO 09/02/20 21:00 09/27/20 20:16 Guaifenesin (Robitussin) 100 mg PRN Q2HRS PRN PO COUGH 09/02/20 16:30 Hydrocortisone Acetate (Anucort-Hc) 25 mg PRN DAILY PRN RC RECTAL PAIN 09/02/20 16:30 Haloperidol (Haldol) 0.5 mg DAILY PO 09/08/20 09:00 09/16/20 18:34 DC 09/16/20 08:49 Valproic Acid (Depakene) 750 mg BID PO 09/08/20 21:00 09/27/20 20:16 Haloperidol (Haldol) 0.5 mg HS PO 09/17/20 21:00 09/19/20 14:00 DC 09/18/20 20:10 Mirtazapine (Remeron) 7.5 mg QHS PO 09/18/20 21:00 09/22/20 17:31 DC 09/21/20 20:33 Risperidone (RisperDAL) 1 mg 1X ONCE PO 09/19/20 14:00 09/19/20 14:06 DC 09/19/20 14:44 Risperidone (RisperDAL) 1.5 mg DAILY PO 09/20/20 09:00 09/26/20 18:01 DC 09/26/20 09:31 Mirtazapine (Remeron) 15 mg QHS PO 09/22/20 21:00 09/27/20 20:17 Risperidone (RisperDAL) 2 mg DAILY PO 09/27/20 09:00 09/27/20 08:20 Current Medications Medications (Trade) Dose Ordered Sig/Annika Route PRN Reason Start Time Stop Time Status Last Admin Dose Admin Risperidone (RisperDAL) 2 mg DAILY PO 09/27/20 09:00 09/27/20 08:20 I have reviewed the current psychotropics carefully including drug interactions. Risk benefit ratio favors no change other than as noted in my dictated progress note. Diagnosis: Problems: (1) Impulse control disorder, unspecified (2) Anxiety disorder, unspecified (3) Bipolar disorder, curr episode mixed, severe, with psychotic features JABARI ARBOLEDA MD Sep 27, 2020 21:58
[2020-09-28] MEDS: LEVOTHYROXINE 125 MCG TABLET PO SCH (05:45)
[2020-09-28 06:26] VITALS: BP 151/73
[2020-09-28] MEDS: POLYVINYL ALCOHOL 1.4% OPHTH SOLUTION 15ML BOTTLE. OU SCH ×2 (08:21→19:58)
[2020-09-28] MEDS: FLUTICASONE 50MCG/NASAL SPRAY 16GM BOTTLE. NS SCH (08:21)
[2020-09-28] MEDS: ALBUTEROL SULFATE 8GM INHALER. INH SCH ×2 (08:22→19:58)
[2020-09-28] MEDS: VALPROATE ACID 250 MG/5 ML ORAL SOLUTION PO SCH ×2 (08:24→19:57)
[2020-09-28] MEDS: POLYETHYLENE GLYCOL 3350 17 GM PACKET. PO SCH (08:25)
[2020-09-28] MEDS: buPROPion XL 300 MG TAB.ER.24H. PO SCH (08:25)
[2020-09-28] MEDS: MULTIVITAMIN with MINERAL TABLET. PO SCH (08:25)
[2020-09-28] MEDS: FUROSEMIDE 40 MG TABLET PO SCH (08:25)
[2020-09-28] MEDS: ATENOLOL 50 MG TABLET PO SCH (08:26)
[2020-09-28] MEDS: amLODIPine BESYLATE 10 MG TABLET PO SCH (08:26)
[2020-09-28] MEDS: MAGNESIUM CHLORIDE ER 64 MG TABLET.ER PO SCH (08:26)
[2020-09-28] MEDS: risperiDONE 2 MG TABLET. PO SCH (08:26)
[2020-09-28] MEDS: FERROUS SULFATE 325 MG TABLET. PO SCH (08:26)
[2020-09-28] MEDS: CALCIUM CARB/VIT D3 500/200 TABLET PO SCH (08:26)
[2020-09-28] MEDS: metFORMIN 500 MG TABLET PO SCH (08:26)
[2020-09-28] MEDS: DOCUSATE SODIUM 100 MG CAPSULE PO SCH (08:26)
[2020-09-28] MEDS: hydrALAZINE 25 MG TABLET PO SCH ×3 (08:27→19:57)
[2020-09-28 15:42] VITALS: BP 110/74
[2020-09-28] MEDS: OXYBUTYNIN CHLORIDE 5 MG TABLET PO SCH (19:57)
[2020-09-28] MEDS: MONTELUKAST 10 MG TABLET. PO SCH (19:57)
[2020-09-28] MEDS: traZODone 50 MG TABLET. PO SCH (19:57)
[2020-09-28] MEDS: DONEPEZIL HCL 10 MG TABLET PO SCH (19:57)
[2020-09-28] MEDS: PANTOPRAZOLE 40 MG TABLET. PO SCH (19:57)
[2020-09-28] MEDS: MIRTAZAPINE 7.5 MG TABLET. PO SCH (19:58)
--- NOTE | 2020-09-28 21:49 | PDOC ---
Exam Note: [facility] Note: Please also refer to the separate dictated note~for this date of service dictated separately.~Patient seen individually. Discussed the patient with Nursing staff reviewed the chart.~Reviewed interim history and current functioning. Reviewed vital signs,~Labs/ Radiology~and current medications noted below. Continue current treatment with the changes noted in the dictated addendum note Assessment: Vital Signs/I&O: Vital Signs Date Time Temp Pulse Resp B/P (MAP) Pulse Ox O2 Delivery O2 Flow Rate FiO2 09/28/20 19:57 58 110/74 09/28/20 15:42 97.0 18 95 09/27/20 15:30 Room Air I & O 09/27/20 09/27/20 09/28/20 15:00 23:00 07:00 Intake Total 600 ml 720 ml Balance 600 ml 720 ml Labs: Laboratory Tests Test 09/28/20 07:32 Glucose (Fingerstick) 99 mg/dL (70-99) Current Medications: Meds: Laboratory Tests Test 09/28/20 07:32 Glucose (Fingerstick) 99 mg/dL Current Medications Medications (Trade) Dose Ordered Sig/Annika Route PRN Reason Start Time Stop Time Status Last Admin Dose Admin Acetaminophen (Tylenol) 650 mg PRN Q6HRS PRN PO MILD PAIN / TEMP > 100.3'F 09/02/20 15:00 09/02/20 16:17 DC Multi-Ingredient Ointment (Analgesic [place]) 1 hui PRN QID PRN TP MUSCLE PAIN 09/02/20 15:00 Al Hydroxide/Mg Hydroxide (Mylanta Plus Xs) 15 ml PRN AFTMEALHC PRN PO DYSPEPSIA 09/02/20 15:00 09/02/20 16:28 DC Magnesium Hydroxide (Milk Of Magnesia) 2,400 mg PRN QHS PRN PO CONSTIPATION 09/02/20 15:00 Acetaminophen (Tylenol) 650 mg PRN Q4HRS PRN PO MILD PAIN / TEMP > 100.3'F 09/02/20 16:15 Albuterol Sulfate (Ventolin Hfa Inhaler) 2 puff BID INH 09/02/20 21:00 09/28/20 19:58 Amlodipine Besylate (Norvasc) 10 mg DAILY PO 09/03/20 09:00 09/28/20 08:26 Atenolol (Tenormin) 50 mg DAILY PO 09/03/20 09:00 09/28/20 08:26 Bupropion HCl (Wellbutrin Xl) 300 mg DAILY PO 09/03/20 09:00 09/28/20 08:25 Divalproex Sodium (Depakote Er) 1,500 mg QHS PO 09/02/20 21:00 09/08/20 20:12 DC 09/07/20 19:41 Docusate Sodium (Colace) 100 mg DAILY PO 09/03/20 09:00 09/28/20 08:26 Donepezil HCl (Aricept) 10 mg HS PO 09/02/20 21:00 09/28/20 19:57 Ferrous Sulfate (Feosol) 325 mg DAILY PO 09/03/20 09:00 09/28/20 08:26 Furosemide (Lasix) 40 mg DAILY PO 09/03/20 09:00 09/28/20 08:25 Guaifenesin (Mucinex Er) 1,200 mg BID PO 09/02/20 21:00 09/28/20 19:57 Hydralazine HCl (Apresoline) 25 mg TID PO 09/02/20 21:00 09/28/20 19:57 Levothyroxine Sodium (Synthroid) 125 mcg DAILY06 PO 09/03/20 06:00 09/28/20 05:45 Al Hydroxide/Mg Hydroxide (Mylanta Plus Xs) 30 ml PRN Q2HRS PRN PO DYSPEPSIA 09/02/20 16:15 Multi-Ingredient Ointment (Analgesic [place]) 1 hui PRN QID PRN TP MUSCLE PAIN 09/02/20 16:15 09/02/20 16:29 DC Montelukast Sodium (Singulair) 10 mg HS PO 09/02/20 21:00 09/28/20 19:57 Olanzapine (ZyPREXA ZYDIS) 2.5 mg PRN Q2HRS PRN PO psychosis/agitation 09/02/20 16:15 09/02/20 16:20 DC Pantoprazole Sodium (Protonix) 40 mg HS PO 09/02/20 21:00 09/28/20 19:57 Polyethylene Glycol (miraLAX) 17 gm DAILY PO 09/03/20 09:00 09/28/20 08:25 Artificial Tears (Artificial Tears) 2 drop BID OU 09/02/20 21:00 09/28/20 19:58 Risperidone (RisperDAL) 0.25 mg QHS PO 09/02/20 21:00 09/07/20 16:47 DC 09/06/20 20:54 Risperidone (RisperDAL) 1 mg QHS PO 09/02/20 21:00 09/07/20 16:47 DC 09/06/20 20:55 Trazodone HCl (Desyrel) 50 mg HS PO 09/02/20 21:00 09/28/20 19:57 Trazodone HCl (Desyrel) 50 mg PRN QHS PRN PO insomnia 09/02/20 16:15 Calcium/Vitamin D (Oscal D 500mg/ 200uts) 1 tab DAILY PO 09/03/20 09:00 09/28/20 08:26 Fluticasone Propionate (Flonase) 2 spray DAILY NS 09/03/20 09:00 09/28/20 08:21 Magnesium Chloride (Mag Delay) 64 mg DAILY PO 09/03/20 09:00 09/28/20 08:26 Non-Formulary Medication (Magnesium Hydroxide (Milk Of Magnesia)) 2,400 mg PRN QHS PRN PO CONSTIPATION 09/02/20 16:15 09/02/20 16:32 DC Metformin HCl (Glucophage) 1,000 mg DAILYWBKFT PO 09/03/20 08:00 09/28/20 08:26 Multivitamins/ Calcium (Thera-M Plus) 1 tab DAILY PO 09/03/20 09:00 09/28/20 08:25 Oxybutynin Chloride (Ditropan) 5 mg QHS PO 09/02/20 21:00 09/28/20 19:57 Guaifenesin (Robitussin) 100 mg PRN Q2HRS PRN PO COUGH 09/02/20 16:30 Hydrocortisone Acetate (Anucort-Hc) 25 mg PRN DAILY PRN RC RECTAL PAIN 09/02/20 16:30 Haloperidol (Haldol) 0.5 mg DAILY PO 09/08/20 09:00 09/16/20 18:34 DC 09/16/20 08:49 Valproic Acid (Depakene) 750 mg BID PO 09/08/20 21:00 09/28/20 19:57 Haloperidol (Haldol) 0.5 mg HS PO 09/17/20 21:00 09/19/20 14:00 DC 09/18/20 20:10 Mirtazapine (Remeron) 7.5 mg QHS PO 09/18/20 21:00 09/22/20 17:31 DC 09/21/20 20:33 Risperidone (RisperDAL) 1 mg 1X ONCE PO 09/19/20 14:00 09/19/20 14:06 DC 09/19/20 14:44 Risperidone (RisperDAL) 1.5 mg DAILY PO 09/20/20 09:00 09/26/20 18:01 DC 09/26/20 09:31 Mirtazapine (Remeron) 15 mg QHS PO 09/22/20 21:00 09/28/20 19:58 Risperidone (RisperDAL) 2 mg DAILY PO 09/27/20 09:00 09/28/20 08:26 I have reviewed the current psychotropics carefully including drug interactions. Risk benefit ratio favors no change other than as noted in my dictated progress note. Diagnosis: Problems: (1) Impulse control disorder, unspecified (2) Anxiety disorder, unspecified (3) Bipolar disorder, curr episode mixed, severe, with psychotic features JABARI ARBOLEDA MD Sep 28, 2020 21:49
[2020-09-29] MEDS: LEVOTHYROXINE 125 MCG TABLET PO SCH (05:34)
[2020-09-29 06:09] VITALS: BP 145/72
[2020-09-29] MEDS: ALBUTEROL SULFATE 8GM INHALER. INH SCH ×2 (07:56→20:08)
[2020-09-29] MEDS: POLYETHYLENE GLYCOL 3350 17 GM PACKET. PO SCH (07:56)
[2020-09-29] MEDS: FLUTICASONE 50MCG/NASAL SPRAY 16GM BOTTLE. NS SCH (07:57)
[2020-09-29] MEDS: VALPROATE ACID 250 MG/5 ML ORAL SOLUTION PO SCH ×2 (07:57→20:07)
[2020-09-29] MEDS: POLYVINYL ALCOHOL 1.4% OPHTH SOLUTION 15ML BOTTLE. OU SCH ×2 (07:57→20:08)
[2020-09-29] MEDS: metFORMIN 500 MG TABLET PO SCH (07:58)
[2020-09-29] MEDS: DOCUSATE SODIUM 100 MG CAPSULE PO SCH (07:58)
[2020-09-29] MEDS: buPROPion XL 300 MG TAB.ER.24H. PO SCH (07:58)
[2020-09-29] MEDS: FUROSEMIDE 40 MG TABLET PO SCH (07:58)
[2020-09-29] MEDS: MAGNESIUM CHLORIDE ER 64 MG TABLET.ER PO SCH (07:58)
[2020-09-29] MEDS: risperiDONE 2 MG TABLET. PO SCH (07:59)
[2020-09-29] MEDS: FERROUS SULFATE 325 MG TABLET. PO SCH (07:59)
[2020-09-29] MEDS: hydrALAZINE 25 MG TABLET PO SCH ×3 (07:59→20:07)
[2020-09-29] MEDS: ATENOLOL 50 MG TABLET PO SCH (07:59)
[2020-09-29] MEDS: MULTIVITAMIN with MINERAL TABLET. PO SCH (07:59)
[2020-09-29] MEDS: amLODIPine BESYLATE 10 MG TABLET PO SCH (07:59)
[2020-09-29] MEDS: CALCIUM CARB/VIT D3 500/200 TABLET PO SCH (08:00)
[2020-09-29 15:47] VITALS: BP 113/73
[2020-09-29] MEDS: MIRTAZAPINE 7.5 MG TABLET. PO SCH (20:08)
[2020-09-29] MEDS: DONEPEZIL HCL 10 MG TABLET PO SCH (20:08)
[2020-09-29] MEDS: traZODone 50 MG TABLET. PO SCH (20:08)
[2020-09-29] MEDS: MONTELUKAST 10 MG TABLET. PO SCH (20:08)
[2020-09-29] MEDS: OXYBUTYNIN CHLORIDE 5 MG TABLET PO SCH (20:08)
[2020-09-29] MEDS: PANTOPRAZOLE 40 MG TABLET. PO SCH (20:08)
--- NOTE | 2020-09-29 21:58 | PDOC ---
Exam Note: [facility] Note: Please also refer to the separate dictated note~for this date of service dictated separately.~Patient seen individually. Discussed the patient with Nursing staff reviewed the chart.~Reviewed interim history and current functioning. Reviewed vital signs,~Labs/ Radiology~and current medications noted below. Continue current treatment with the changes noted in the dictated addendum note Assessment: Vital Signs/I&O: Vital Signs Date Time Temp Pulse Resp B/P (MAP) Pulse Ox O2 Delivery O2 Flow Rate FiO2 09/29/20 20:07 62 113/73 09/29/20 15:47 97.8 17 93 09/27/20 15:30 Room Air I & O 09/28/20 09/28/20 09/29/20 14:59 22:59 06:59 Intake Total 480 ml 600 ml Balance 480 ml 600 ml Labs: Laboratory Tests Test 09/29/20 07:56 Glucose (Fingerstick) 110 mg/dL (70-99) H Current Medications: Meds: Laboratory Tests Test 09/29/20 07:56 Glucose (Fingerstick) 110 mg/dL Current Medications Medications (Trade) Dose Ordered Sig/Annika Route PRN Reason Start Time Stop Time Status Last Admin Dose Admin Acetaminophen (Tylenol) 650 mg PRN Q6HRS PRN PO MILD PAIN / TEMP > 100.3'F 09/02/20 15:00 09/02/20 16:17 DC Multi-Ingredient Ointment (Analgesic [place]) 1 hui PRN QID PRN TP MUSCLE PAIN 09/02/20 15:00 Al Hydroxide/Mg Hydroxide (Mylanta Plus Xs) 15 ml PRN AFTMEALHC PRN PO DYSPEPSIA 09/02/20 15:00 09/02/20 16:28 DC Magnesium Hydroxide (Milk Of Magnesia) 2,400 mg PRN QHS PRN PO CONSTIPATION 09/02/20 15:00 Acetaminophen (Tylenol) 650 mg PRN Q4HRS PRN PO MILD PAIN / TEMP > 100.3'F 09/02/20 16:15 Albuterol Sulfate (Ventolin Hfa Inhaler) 2 puff BID INH 09/02/20 21:00 09/29/20 07:56 Amlodipine Besylate (Norvasc) 10 mg DAILY PO 09/03/20 09:00 09/29/20 07:59 Atenolol (Tenormin) 50 mg DAILY PO 09/03/20 09:00 09/29/20 07:59 Bupropion HCl (Wellbutrin Xl) 300 mg DAILY PO 09/03/20 09:00 09/29/20 07:58 Divalproex Sodium (Depakote Er) 1,500 mg QHS PO 09/02/20 21:00 09/08/20 20:12 DC 09/07/20 19:41 Docusate Sodium (Colace) 100 mg DAILY PO 09/03/20 09:00 09/29/20 07:58 Donepezil HCl (Aricept) 10 mg HS PO 09/02/20 21:00 09/29/20 20:08 Ferrous Sulfate (Feosol) 325 mg DAILY PO 09/03/20 09:00 09/29/20 07:59 Furosemide (Lasix) 40 mg DAILY PO 09/03/20 09:00 09/29/20 07:58 Guaifenesin (Mucinex Er) 1,200 mg BID PO 09/02/20 21:00 09/29/20 20:08 Hydralazine HCl (Apresoline) 25 mg TID PO 09/02/20 21:00 09/29/20 20:07 Levothyroxine Sodium (Synthroid) 125 mcg DAILY06 PO 09/03/20 06:00 09/29/20 05:34 Al Hydroxide/Mg Hydroxide (Mylanta Plus Xs) 30 ml PRN Q2HRS PRN PO DYSPEPSIA 09/02/20 16:15 Multi-Ingredient Ointment (Analgesic [place]) 1 hui PRN QID PRN TP MUSCLE PAIN 09/02/20 16:15 09/02/20 16:29 DC Montelukast Sodium (Singulair) 10 mg HS PO 09/02/20 21:00 09/29/20 20:08 Olanzapine (ZyPREXA ZYDIS) 2.5 mg PRN Q2HRS PRN PO psychosis/agitation 09/02/20 16:15 09/02/20 16:20 DC Pantoprazole Sodium (Protonix) 40 mg HS PO 09/02/20 21:00 09/29/20 20:08 Polyethylene Glycol (miraLAX) 17 gm DAILY PO 09/03/20 09:00 09/29/20 07:56 Artificial Tears (Artificial Tears) 2 drop BID OU 09/02/20 21:00 09/29/20 07:57 Risperidone (RisperDAL) 0.25 mg QHS PO 09/02/20 21:00 09/07/20 16:47 DC 09/06/20 20:54 Risperidone (RisperDAL) 1 mg QHS PO 09/02/20 21:00 09/07/20 16:47 DC 09/06/20 20:55 Trazodone HCl (Desyrel) 50 mg HS PO 09/02/20 21:00 09/29/20 20:08 Trazodone HCl (Desyrel) 50 mg PRN QHS PRN PO insomnia 09/02/20 16:15 Calcium/Vitamin D (Oscal D 500mg/ 200uts) 1 tab DAILY PO 09/03/20 09:00 09/29/20 08:00 Fluticasone Propionate (Flonase) 2 spray DAILY NS 09/03/20 09:00 09/29/20 07:57 Magnesium Chloride (Mag Delay) 64 mg DAILY PO 09/03/20 09:00 09/29/20 07:58 Non-Formulary Medication (Magnesium Hydroxide (Milk Of Magnesia)) 2,400 mg PRN QHS PRN PO CONSTIPATION 09/02/20 16:15 09/02/20 16:32 DC Metformin HCl (Glucophage) 1,000 mg DAILYWBKFT PO 09/03/20 08:00 09/29/20 07:58 Multivitamins/ Calcium (Thera-M Plus) 1 tab DAILY PO 09/03/20 09:00 09/29/20 07:59 Oxybutynin Chloride (Ditropan) 5 mg QHS PO 09/02/20 21:00 09/29/20 20:08 Guaifenesin (Robitussin) 100 mg PRN Q2HRS PRN PO COUGH 09/02/20 16:30 Hydrocortisone Acetate (Anucort-Hc) 25 mg PRN DAILY PRN RC RECTAL PAIN 09/02/20 16:30 Haloperidol (Haldol) 0.5 mg DAILY PO 09/08/20 09:00 09/16/20 18:34 DC 09/16/20 08:49 Valproic Acid (Depakene) 750 mg BID PO 09/08/20 21:00 09/29/20 20:07 Haloperidol (Haldol) 0.5 mg HS PO 09/17/20 21:00 09/19/20 14:00 DC 09/18/20 20:10 Mirtazapine (Remeron) 7.5 mg QHS PO 09/18/20 21:00 09/22/20 17:31 DC 09/21/20 20:33 Risperidone (RisperDAL) 1 mg 1X ONCE PO 09/19/20 14:00 09/19/20 14:06 DC 09/19/20 14:44 Risperidone (RisperDAL) 1.5 mg DAILY PO 09/20/20 09:00 09/26/20 18:01 DC 09/26/20 09:31 Mirtazapine (Remeron) 15 mg QHS PO 09/22/20 21:00 09/29/20 20:08 Risperidone (RisperDAL) 2 mg DAILY PO 09/27/20 09:00 09/29/20 07:59 I have reviewed the current psychotropics carefully including drug interactions. Risk benefit ratio favors no change other than as noted in my dictated progress note. Diagnosis: Problems: (1) Impulse control disorder, unspecified (2) Anxiety disorder, unspecified (3) Bipolar disorder, curr episode mixed, severe, with psychotic features JABARI ARBOLEDA MD Sep 29, 2020 21:58
[2020-09-30] MEDS: LEVOTHYROXINE 125 MCG TABLET PO SCH (06:00)
--- NOTE | 2020-09-30 06:19 | PDOC ---
Exam Note: [facility] Note: This note is a late entry for 09/27/2020 covers elements not covered in my initial note. Subjective: The patient was seen individually in the evening of 09/27/2020 with Geneva BOND, discussed and reviewed the chart. She slept 6 hours previous night. She is less resistive to medications, less agitated. Behaviorally she is doing better. Review of Systems: Ambulation impaired with walker. No CV, , pulmonary, eye, ENT system symptoms on review. Mental Status Exam: The patient is oriented to herself. I met with her outside the second nursing station. She is pleasant, smiling. Often verbal response is monosyllabic. Abstraction is fair. Computation impaired. Language function is intact. Attention span is short. Mood and affect is withdrawn. Laboratory Data: Reviewed. Impression: Bipolar disorder mixed with psychotic features in partial remission. Anxiety disorder unspecified. Impulse control disorder unspecified. Plan: No change from initial note. Assessment: Vital Signs/I&O: Vital Signs Date Time Temp Pulse Resp B/P (MAP) Pulse Ox O2 Delivery O2 Flow Rate FiO2 09/29/20 20:07 62 113/73 09/29/20 15:47 97.8 17 93 09/27/20 15:30 Room Air I & O 09/29/20 09/29/20 09/30/20 15:00 23:00 07:00 Intake Total 480 ml 360 ml Balance 480 ml 360 ml Labs: Laboratory Tests Test 09/29/20 07:56 Glucose (Fingerstick) 110 mg/dL (70-99) H Current Medications: Meds: Laboratory Tests Test 09/29/20 07:56 Glucose (Fingerstick) 110 mg/dL Current Medications Medications (Trade) Dose Ordered Sig/Annika Route PRN Reason Start Time Stop Time Status Last Admin Dose Admin Acetaminophen (Tylenol) 650 mg PRN Q6HRS PRN PO MILD PAIN / TEMP > 100.3'F 09/02/20 15:00 09/02/20 16:17 DC Multi-Ingredient Ointment (Analgesic [place]) 1 hui PRN QID PRN TP MUSCLE PAIN 09/02/20 15:00 Al Hydroxide/Mg Hydroxide (Mylanta Plus Xs) 15 ml PRN AFTMEALHC PRN PO DYSPEPSIA 09/02/20 15:00 09/02/20 16:28 DC Magnesium Hydroxide (Milk Of Magnesia) 2,400 mg PRN QHS PRN PO CONSTIPATION 09/02/20 15:00 Acetaminophen (Tylenol) 650 mg PRN Q4HRS PRN PO MILD PAIN / TEMP > 100.3'F 09/02/20 16:15 Albuterol Sulfate (Ventolin Hfa Inhaler) 2 puff BID INH 09/02/20 21:00 09/29/20 07:56 Amlodipine Besylate (Norvasc) 10 mg DAILY PO 09/03/20 09:00 09/29/20 07:59 Atenolol (Tenormin) 50 mg DAILY PO 09/03/20 09:00 09/29/20 07:59 Bupropion HCl (Wellbutrin Xl) 300 mg DAILY PO 09/03/20 09:00 09/29/20 07:58 Divalproex Sodium (Depakote Er) 1,500 mg QHS PO 09/02/20 21:00 09/08/20 20:12 DC 09/07/20 19:41 Docusate Sodium (Colace) 100 mg DAILY PO 09/03/20 09:00 09/29/20 07:58 Donepezil HCl (Aricept) 10 mg HS PO 09/02/20 21:00 09/29/20 20:08 Ferrous Sulfate (Feosol) 325 mg DAILY PO 09/03/20 09:00 09/29/20 07:59 Furosemide (Lasix) 40 mg DAILY PO 09/03/20 09:00 09/29/20 07:58 Guaifenesin (Mucinex Er) 1,200 mg BID PO 09/02/20 21:00 09/29/20 20:08 Hydralazine HCl (Apresoline) 25 mg TID PO 09/02/20 21:00 09/29/20 20:07 Levothyroxine Sodium (Synthroid) 125 mcg DAILY06 PO 09/03/20 06:00 09/30/20 06:00 Al Hydroxide/Mg Hydroxide (Mylanta Plus Xs) 30 ml PRN Q2HRS PRN PO DYSPEPSIA 09/02/20 16:15 Multi-Ingredient Ointment (Analgesic [place]) 1 hui PRN QID PRN TP MUSCLE PAIN 09/02/20 16:15 09/02/20 16:29 DC Montelukast Sodium (Singulair) 10 mg HS PO 09/02/20 21:00 09/29/20 20:08 Olanzapine (ZyPREXA ZYDIS) 2.5 mg PRN Q2HRS PRN PO psychosis/agitation 09/02/20 16:15 09/02/20 16:20 DC Pantoprazole Sodium (Protonix) 40 mg HS PO 09/02/20 21:00 09/29/20 20:08 Polyethylene Glycol (miraLAX) 17 gm DAILY PO 09/03/20 09:00 09/29/20 07:56 Artificial Tears (Artificial Tears) 2 drop BID OU 09/02/20 21:00 09/29/20 07:57 Risperidone (RisperDAL) 0.25 mg QHS PO 09/02/20 21:00 09/07/20 16:47 DC 09/06/20 20:54 Risperidone (RisperDAL) 1 mg QHS PO 09/02/20 21:00 09/07/20 16:47 DC 09/06/20 20:55 Trazodone HCl (Desyrel) 50 mg HS PO 09/02/20 21:00 09/29/20 20:08 Trazodone HCl (Desyrel) 50 mg PRN QHS PRN PO insomnia 09/02/20 16:15 Calcium/Vitamin D (Oscal D 500mg/ 200uts) 1 tab DAILY PO 09/03/20 09:00 09/29/20 08:00 Fluticasone Propionate (Flonase) 2 spray DAILY NS 09/03/20 09:00 09/29/20 07:57 Magnesium Chloride (Mag Delay) 64 mg DAILY PO 09/03/20 09:00 09/29/20 07:58 Non-Formulary Medication (Magnesium Hydroxide (Milk Of Magnesia)) 2,400 mg PRN QHS PRN PO CONSTIPATION 09/02/20 16:15 09/02/20 16:32 DC Metformin HCl (Glucophage) 1,000 mg DAILYWBKFT PO 09/03/20 08:00 09/29/20 07:58 Multivitamins/ Calcium (Thera-M Plus) 1 tab DAILY PO 09/03/20 09:00 09/29/20 07:59 Oxybutynin Chloride (Ditropan) 5 mg QHS PO 09/02/20 21:00 09/29/20 20:08 Guaifenesin (Robitussin) 100 mg PRN Q2HRS PRN PO COUGH 09/02/20 16:30 Hydrocortisone Acetate (Anucort-Hc) 25 mg PRN DAILY PRN RC RECTAL PAIN 09/02/20 16:30 Haloperidol (Haldol) 0.5 mg DAILY PO 09/08/20 09:00 09/16/20 18:34 DC 09/16/20 08:49 Valproic Acid (Depakene) 750 mg BID PO 09/08/20 21:00 09/29/20 20:07 Haloperidol (Haldol) 0.5 mg HS PO 09/17/20 21:00 09/19/20 14:00 DC 09/18/20 20:10 Mirtazapine (Remeron) 7.5 mg QHS PO 09/18/20 21:00 09/22/20 17:31 DC 09/21/20 20:33 Risperidone (RisperDAL) 1 mg 1X ONCE PO 09/19/20 14:00 09/19/20 14:06 DC 09/19/20 14:44 Risperidone (RisperDAL) 1.5 mg DAILY PO 09/20/20 09:00 09/26/20 18:01 DC 09/26/20 09:31 Mirtazapine (Remeron) 15 mg QHS PO 09/22/20 21:00 09/29/20 20:08 Risperidone (RisperDAL) 2 mg DAILY PO 09/27/20 09:00 09/29/20 07:59 I have reviewed the current psychotropics carefully including drug interactions. Risk benefit ratio favors no change other than as noted in my dictated progress note. Diagnosis: Problems: (1) Impulse control disorder, unspecified (2) Anxiety disorder, unspecified (3) Bipolar disorder, curr episode mixed, severe, with psychotic features JABARI ARBOLEDA MD Sep 30, 2020 06:19
[2020-09-30 06:22] VITALS: BP 170/90
--- NOTE | 2020-09-30 06:58 | PDOC ---
Exam Note: [facility] Note: This note is a late entry for 09/28/2020 covers elements not covered in my initial note. Subjective: The patient was seen individually in the evening of 09/28/2020 with Robert BOND, discussed and reviewed the chart. She slept 6-1/4 hours previous night. The patient is compliant with her medications. She has had a good day. I met with her in the dayroom. Review of Systems: Ambulation impaired with walker. No CV, , pulmonary, eye, ENT system symptoms on review. Mental Status Exam: The patient is oriented to herself. She is pleasant, interactive. Often verbal response is monosyllabic. Abstraction is fair. Computation impaired. Language function is intact. Attention span is short. Mood and affect is withdrawn. No clear psychotic symptoms, suicidal or homicidal ideation. She had many questions about her discharge plans which I addressed. Laboratory Data: Reviewed. Impression: Bipolar disorder mixed with psychotic features in partial remission. Anxiety disorder unspecified. Impulse control disorder unspecified. Plan: No change from initial note. Assessment: Vital Signs/I&O: Vital Signs Date Time Temp Pulse Resp B/P (MAP) Pulse Ox O2 Delivery O2 Flow Rate FiO2 09/30/20 06:22 97.4 49 16 170/90 (116) 89 09/27/20 15:30 Room Air I & O 09/29/20 09/29/20 09/30/20 15:00 23:00 07:00 Intake Total 480 ml 360 ml Balance 480 ml 360 ml Labs: Laboratory Tests Test 09/29/20 07:56 Glucose (Fingerstick) 110 mg/dL (70-99) H Current Medications: Meds: Laboratory Tests Test 09/29/20 07:56 Glucose (Fingerstick) 110 mg/dL Current Medications Medications (Trade) Dose Ordered Sig/Annika Route PRN Reason Start Time Stop Time Status Last Admin Dose Admin Acetaminophen (Tylenol) 650 mg PRN Q6HRS PRN PO MILD PAIN / TEMP > 100.3'F 09/02/20 15:00 09/02/20 16:17 DC Multi-Ingredient Ointment (Analgesic [place]) 1 hui PRN QID PRN TP MUSCLE PAIN 09/02/20 15:00 Al Hydroxide/Mg Hydroxide (Mylanta Plus Xs) 15 ml PRN AFTMEALHC PRN PO DYSPEPSIA 09/02/20 15:00 09/02/20 16:28 DC Magnesium Hydroxide (Milk Of Magnesia) 2,400 mg PRN QHS PRN PO CONSTIPATION 09/02/20 15:00 Acetaminophen (Tylenol) 650 mg PRN Q4HRS PRN PO MILD PAIN / TEMP > 100.3'F 09/02/20 16:15 Albuterol Sulfate (Ventolin Hfa Inhaler) 2 puff BID INH 09/02/20 21:00 09/29/20 07:56 Amlodipine Besylate (Norvasc) 10 mg DAILY PO 09/03/20 09:00 09/29/20 07:59 Atenolol (Tenormin) 50 mg DAILY PO 09/03/20 09:00 09/29/20 07:59 Bupropion HCl (Wellbutrin Xl) 300 mg DAILY PO 09/03/20 09:00 09/29/20 07:58 Divalproex Sodium (Depakote Er) 1,500 mg QHS PO 09/02/20 21:00 09/08/20 20:12 DC 09/07/20 19:41 Docusate Sodium (Colace) 100 mg DAILY PO 09/03/20 09:00 09/29/20 07:58 Donepezil HCl (Aricept) 10 mg HS PO 09/02/20 21:00 09/29/20 20:08 Ferrous Sulfate (Feosol) 325 mg DAILY PO 09/03/20 09:00 09/29/20 07:59 Furosemide (Lasix) 40 mg DAILY PO 09/03/20 09:00 09/29/20 07:58 Guaifenesin (Mucinex Er) 1,200 mg BID PO 09/02/20 21:00 09/29/20 20:08 Hydralazine HCl (Apresoline) 25 mg TID PO 09/02/20 21:00 09/29/20 20:07 Levothyroxine Sodium (Synthroid) 125 mcg DAILY06 PO 09/03/20 06:00 09/30/20 06:00 Al Hydroxide/Mg Hydroxide (Mylanta Plus Xs) 30 ml PRN Q2HRS PRN PO DYSPEPSIA 09/02/20 16:15 Multi-Ingredient Ointment (Analgesic [place]) 1 hui PRN QID PRN TP MUSCLE PAIN 09/02/20 16:15 09/02/20 16:29 DC Montelukast Sodium (Singulair) 10 mg HS PO 09/02/20 21:00 09/29/20 20:08 Olanzapine (ZyPREXA ZYDIS) 2.5 mg PRN Q2HRS PRN PO psychosis/agitation 09/02/20 16:15 09/02/20 16:20 DC Pantoprazole Sodium (Protonix) 40 mg HS PO 09/02/20 21:00 09/29/20 20:08 Polyethylene Glycol (miraLAX) 17 gm DAILY PO 09/03/20 09:00 09/29/20 07:56 Artificial Tears (Artificial Tears) 2 drop BID OU 09/02/20 21:00 09/29/20 07:57 Risperidone (RisperDAL) 0.25 mg QHS PO 09/02/20 21:00 09/07/20 16:47 DC 09/06/20 20:54 Risperidone (RisperDAL) 1 mg QHS PO 09/02/20 21:00 09/07/20 16:47 DC 09/06/20 20:55 Trazodone HCl (Desyrel) 50 mg HS PO 09/02/20 21:00 09/29/20 20:08 Trazodone HCl (Desyrel) 50 mg PRN QHS PRN PO insomnia 09/02/20 16:15 Calcium/Vitamin D (Oscal D 500mg/ 200uts) 1 tab DAILY PO 09/03/20 09:00 09/29/20 08:00 Fluticasone Propionate (Flonase) 2 spray DAILY NS 09/03/20 09:00 09/29/20 07:57 Magnesium Chloride (Mag Delay) 64 mg DAILY PO 09/03/20 09:00 09/29/20 07:58 Non-Formulary Medication (Magnesium Hydroxide (Milk Of Magnesia)) 2,400 mg PRN QHS PRN PO CONSTIPATION 09/02/20 16:15 09/02/20 16:32 DC Metformin HCl (Glucophage) 1,000 mg DAILYWBKFT PO 09/03/20 08:00 09/29/20 07:58 Multivitamins/ Calcium (Thera-M Plus) 1 tab DAILY PO 09/03/20 09:00 09/29/20 07:59 Oxybutynin Chloride (Ditropan) 5 mg QHS PO 09/02/20 21:00 09/29/20 20:08 Guaifenesin (Robitussin) 100 mg PRN Q2HRS PRN PO COUGH 09/02/20 16:30 Hydrocortisone Acetate (Anucort-Hc) 25 mg PRN DAILY PRN RC RECTAL PAIN 09/02/20 16:30 Haloperidol (Haldol) 0.5 mg DAILY PO 09/08/20 09:00 09/16/20 18:34 DC 09/16/20 08:49 Valproic Acid (Depakene) 750 mg BID PO 09/08/20 21:00 09/29/20 20:07 Haloperidol (Haldol) 0.5 mg HS PO 09/17/20 21:00 09/19/20 14:00 DC 09/18/20 20:10 Mirtazapine (Remeron) 7.5 mg QHS PO 09/18/20 21:00 09/22/20 17:31 DC 09/21/20 20:33 Risperidone (RisperDAL) 1 mg 1X ONCE PO 09/19/20 14:00 09/19/20 14:06 DC 09/19/20 14:44 Risperidone (RisperDAL) 1.5 mg DAILY PO 09/20/20 09:00 09/26/20 18:01 DC 09/26/20 09:31 Mirtazapine (Remeron) 15 mg QHS PO 09/22/20 21:00 09/29/20 20:08 Risperidone (RisperDAL) 2 mg DAILY PO 09/27/20 09:00 09/29/20 07:59 I have reviewed the current psychotropics carefully including drug interactions. Risk benefit ratio favors no change other than as noted in my dictated progress note. Diagnosis: Problems: (1) Impulse control disorder, unspecified (2) Anxiety disorder, unspecified (3) Bipolar disorder, curr episode mixed, severe, with psychotic features JABARI ARBOLEDA MD Sep 30, 2020 06:58
[2020-09-30 07:21] LABS: BASO # 0.1 x10^3/uL (0.0-0.2); BASO % 1 % (0-3); EOS # 0.2 x10^3/uL (0.0-0.7); EOS % 4 % (0-3); HEMATOCRIT 35.8 % (36.0-47.0); HEMOGLOBIN 11.6 g/dL (12.0-15.5); LYMPH # 1.9 x10^3/uL (1.0-4.8); LYMPH % 28 % (24-48); MEAN CORPUSCULAR HEMOGLOBIN 30 pg (25-35); MEAN CORPUSCULAR HGB CONC 33 g/dL (31-37); MEAN CORPUSCULAR VOLUME 92 fL (79-100); MONO # 1.2 x10^3/uL (0.0-1.1); MONO % 18 % (0-9); NEUT # 3.4 x10^3uL (1.8-7.7); NEUT % 50 % (31-73); PLATELET COUNT 225 x10^3/uL (140-400); RED BLOOD COUNT 3.87 x10^6/uL (3.50-5.40); RED CELL DISTRIBUTION WIDTH 16.1 % (11.5-14.5); WHITE BLOOD COUNT 6.8 x10^3/uL (4.0-11.0)
[2020-09-30 07:40] LABS: ALBUMIN/GLOBULIN RATIO 0.9 (1.0-1.7); CALCIUM 9.3 mg/dL (8.5-10.1); CREATININE 1.5 mg/dL (0.6-1.0); GFR 34.2; POTASSIUM 4.4 mmol/L (3.5-5.1); TOTAL BILIRUBIN 0.2 mg/dL (0.2-1.0); TOTAL PROTEIN 6.4 g/dL (6.4-8.2)
--- NOTE | 2020-09-30 07:53 | PDOC ---
Exam Note: [facility] Note: This note is a late entry for 09/29/2020 covers elements not covered in my initial note. Subjective: The patient was seen individually in the evening of 09/29/2020 with Robert BOND, discussed and reviewed the chart. She slept just 1-3/4 hours previous night but made up for some of it during the day. The patient has had a good day. Review of Systems: Ambulation impaired with walker. No CV, , pulmonary, eye, ENT system symptoms on review. Mental Status Exam: The patient is oriented to herself. Speech coherent. Abstraction is fair. Computation impaired. Language function is intact. Attention span is short. Mood and affect is withdrawn. No clear psychotic symptoms, suicidal or homicidal ideation. Laboratory Data: Reviewed. Impression: Bipolar disorder mixed with psychotic features in partial remiss ion. Anxiety disorder unspecified. Impulse control disorder unspecified. Plan: No change from initial note. Assessment: Vital Signs/I&O: Vital Signs Date Time Temp Pulse Resp B/P (MAP) Pulse Ox O2 Delivery O2 Flow Rate FiO2 09/30/20 06:22 97.4 49 16 170/90 (116) 89 09/27/20 15:30 Room Air I & O 09/29/20 09/29/20 09/30/20 15:00 23:00 07:00 Intake Total 480 ml 360 ml Balance 480 ml 360 ml Labs: Laboratory Tests Test 09/29/20 07:56 09/30/20 07:34 Glucose (Fingerstick) 110 mg/dL (70-99) H 104 mg/dL (70-99) H Current Medications: Meds: Laboratory Tests Test 09/29/20 07:56 09/30/20 07:34 Glucose (Fingerstick) 110 mg/dL 104 mg/dL Current Medications Medications (Trade) Dose Ordered Sig/Annika Route PRN Reason Start Time Stop Time Status Last Admin Dose Admin Acetaminophen (Tylenol) 650 mg PRN Q6HRS PRN PO MILD PAIN / TEMP > 100.3'F 09/02/20 15:00 09/02/20 16:17 DC Multi-Ingredient Ointment (Analgesic [place]) 1 hui PRN QID PRN TP MUSCLE PAIN 09/02/20 15:00 Al Hydroxide/Mg Hydroxide (Mylanta Plus Xs) 15 ml PRN AFTMEALHC PRN PO DYSPEPSIA 09/02/20 15:00 09/02/20 16:28 DC Magnesium Hydroxide (Milk Of Magnesia) 2,400 mg PRN QHS PRN PO CONSTIPATION 09/02/20 15:00 Acetaminophen (Tylenol) 650 mg PRN Q4HRS PRN PO MILD PAIN / TEMP > 100.3'F 09/02/20 16:15 Albuterol Sulfate (Ventolin Hfa Inhaler) 2 puff BID INH 09/02/20 21:00 09/29/20 07:56 Amlodipine Besylate (Norvasc) 10 mg DAILY PO 09/03/20 09:00 09/29/20 07:59 Atenolol (Tenormin) 50 mg DAILY PO 09/03/20 09:00 09/29/20 07:59 Bupropion HCl (Wellbutrin Xl) 300 mg DAILY PO 09/03/20 09:00 09/29/20 07:58 Divalproex Sodium (Depakote Er) 1,500 mg QHS PO 09/02/20 21:00 09/08/20 20:12 DC 09/07/20 19:41 Docusate Sodium (Colace) 100 mg DAILY PO 09/03/20 09:00 09/29/20 07:58 Donepezil HCl (Aricept) 10 mg HS PO 09/02/20 21:00 09/29/20 20:08 Ferrous Sulfate (Feosol) 325 mg DAILY PO 09/03/20 09:00 09/29/20 07:59 Furosemide (Lasix) 40 mg DAILY PO 09/03/20 09:00 09/29/20 07:58 Guaifenesin (Mucinex Er) 1,200 mg BID PO 09/02/20 21:00 09/29/20 20:08 Hydralazine HCl (Apresoline) 25 mg TID PO 09/02/20 21:00 09/29/20 20:07 Levothyroxine Sodium (Synthroid) 125 mcg DAILY06 PO 09/03/20 06:00 09/30/20 06:00 Al Hydroxide/Mg Hydroxide (Mylanta Plus Xs) 30 ml PRN Q2HRS PRN PO DYSPEPSIA 09/02/20 16:15 Multi-Ingredient Ointment (Analgesic [place]) 1 hui PRN QID PRN TP MUSCLE PAIN 09/02/20 16:15 09/02/20 16:29 DC Montelukast Sodium (Singulair) 10 mg HS PO 09/02/20 21:00 09/29/20 20:08 Olanzapine (ZyPREXA ZYDIS) 2.5 mg PRN Q2HRS PRN PO psychosis/agitation 09/02/20 16:15 09/02/20 16:20 DC Pantoprazole Sodium (Protonix) 40 mg HS PO 09/02/20 21:00 09/29/20 20:08 Polyethylene Glycol (miraLAX) 17 gm DAILY PO 09/03/20 09:00 09/29/20 07:56 Artificial Tears (Artificial Tears) 2 drop BID OU 09/02/20 21:00 09/29/20 07:57 Risperidone (RisperDAL) 0.25 mg QHS PO 09/02/20 21:00 09/07/20 16:47 DC 09/06/20 20:54 Risperidone (RisperDAL) 1 mg QHS PO 09/02/20 21:00 09/07/20 16:47 DC 09/06/20 20:55 Trazodone HCl (Desyrel) 50 mg HS PO 09/02/20 21:00 09/29/20 20:08 Trazodone HCl (Desyrel) 50 mg PRN QHS PRN PO insomnia 09/02/20 16:15 Calcium/Vitamin D (Oscal D 500mg/ 200uts) 1 tab DAILY PO 09/03/20 09:00 09/29/20 08:00 Fluticasone Propionate (Flonase) 2 spray DAILY NS 09/03/20 09:00 09/29/20 07:57 Magnesium Chloride (Mag Delay) 64 mg DAILY PO 09/03/20 09:00 09/29/20 07:58 Non-Formulary Medication (Magnesium Hydroxide (Milk Of Magnesia)) 2,400 mg PRN QHS PRN PO CONSTIPATION 09/02/20 16:15 09/02/20 16:32 DC Metformin HCl (Glucophage) 1,000 mg DAILYWBKFT PO 09/03/20 08:00 09/29/20 07:58 Multivitamins/ Calcium (Thera-M Plus) 1 tab DAILY PO 09/03/20 09:00 09/29/20 07:59 Oxybutynin Chloride (Ditropan) 5 mg QHS PO 09/02/20 21:00 09/29/20 20:08 Guaifenesin (Robitussin) 100 mg PRN Q2HRS PRN PO COUGH 09/02/20 16:30 Hydrocortisone Acetate (Anucort-Hc) 25 mg PRN DAILY PRN RC RECTAL PAIN 09/02/20 16:30 Haloperidol (Haldol) 0.5 mg DAILY PO 09/08/20 09:00 09/16/20 18:34 DC 09/16/20 08:49 Valproic Acid (Depakene) 750 mg BID PO 09/08/20 21:00 09/29/20 20:07 Haloperidol (Haldol) 0.5 mg HS PO 09/17/20 21:00 09/19/20 14:00 DC 09/18/20 20:10 Mirtazapine (Remeron) 7.5 mg QHS PO 09/18/20 21:00 09/22/20 17:31 DC 09/21/20 20:33 Risperidone (RisperDAL) 1 mg 1X ONCE PO 09/19/20 14:00 09/19/20 14:06 DC 09/19/20 14:44 Risperidone (RisperDAL) 1.5 mg DAILY PO 09/20/20 09:00 09/26/20 18:01 DC 09/26/20 09:31 Mirtazapine (Remeron) 15 mg QHS PO 09/22/20 21:00 09/29/20 20:08 Risperidone (RisperDAL) 2 mg DAILY PO 09/27/20 09:00 09/29/20 07:59 I have reviewed the current psychotropics carefully including drug interactions. Risk benefit ratio favors no change other than as noted in my dictated progress note. Diagnosis: Problems: (1) Impulse control disorder, unspecified (2) Anxiety disorder, unspecified (3) Bipolar disorder, curr episode mixed, severe, with psychotic features JABARI ARBOLEDA MD Sep 30, 2020 07:52
[2020-09-30] MEDS: POLYVINYL ALCOHOL 1.4% OPHTH SOLUTION 15ML BOTTLE. OU SCH ×2 (08:18→19:58)
[2020-09-30] MEDS: FLUTICASONE 50MCG/NASAL SPRAY 16GM BOTTLE. NS SCH (08:18)
[2020-09-30] MEDS: ALBUTEROL SULFATE 8GM INHALER. INH SCH ×2 (08:18→19:59)
[2020-09-30] MEDS: VALPROATE ACID 250 MG/5 ML ORAL SOLUTION PO SCH ×2 (08:19→20:01)
[2020-09-30] MEDS: metFORMIN 500 MG TABLET PO SCH (08:20)
[2020-09-30] MEDS: risperiDONE 2 MG TABLET. PO SCH (08:20)
[2020-09-30] MEDS: FUROSEMIDE 40 MG TABLET PO SCH (08:20)
[2020-09-30] MEDS: hydrALAZINE 25 MG TABLET PO SCH ×3 (08:21→20:01)
[2020-09-30] MEDS: amLODIPine BESYLATE 10 MG TABLET PO SCH (08:21)
[2020-09-30] MEDS: ATENOLOL 50 MG TABLET PO SCH (08:21)
[2020-09-30] MEDS: MAGNESIUM CHLORIDE ER 64 MG TABLET.ER PO SCH (08:22)
[2020-09-30] MEDS: POLYETHYLENE GLYCOL 3350 17 GM PACKET. PO SCH (08:22)
[2020-09-30] MEDS: CALCIUM CARB/VIT D3 500/200 TABLET PO SCH (08:22)
[2020-09-30] MEDS: MULTIVITAMIN with MINERAL TABLET. PO SCH (08:22)
[2020-09-30] MEDS: FERROUS SULFATE 325 MG TABLET. PO SCH (08:22)
[2020-09-30] MEDS: buPROPion XL 300 MG TAB.ER.24H. PO SCH (08:56)
[2020-09-30] MEDS: DOCUSATE SODIUM 100 MG CAPSULE PO SCH (08:56)
[2020-09-30 15:46] VITALS: BP 121/83
[2020-09-30] MEDS: MIRTAZAPINE 7.5 MG TABLET. PO SCH (19:59)
[2020-09-30] MEDS: DONEPEZIL HCL 10 MG TABLET PO SCH (20:00)
[2020-09-30] MEDS: PANTOPRAZOLE 40 MG TABLET. PO SCH (20:00)
[2020-09-30] MEDS: traZODone 50 MG TABLET. PO SCH (20:00)
[2020-09-30] MEDS: MONTELUKAST 10 MG TABLET. PO SCH (20:00)
[2020-09-30] MEDS: OXYBUTYNIN CHLORIDE 5 MG TABLET PO SCH (20:00)
--- NOTE | 2020-09-30 21:53 | PDOC ---
Exam Note: [facility] Note: Please also refer to the separate dictated note~for this date of service dictated separately.~Patient seen individually. Discussed the patient with Nursing staff reviewed the chart.~Reviewed interim history and current functioning. Reviewed vital signs,~Labs/ Radiology~and current medications noted below. Continue current treatment with the changes noted in the dictated addendum note Assessment: Vital Signs/I&O: Vital Signs Date Time Temp Pulse Resp B/P (MAP) Pulse Ox O2 Delivery O2 Flow Rate FiO2 09/30/20 20:01 61 121/83 09/30/20 15:46 97.1 16 95 Room Air I & O 09/29/20 09/29/20 09/30/20 15:00 23:00 07:00 Intake Total 480 ml 360 ml Balance 480 ml 360 ml Labs: Laboratory Tests Test 09/30/20 06:56 09/30/20 07:34 White Blood Count 6.8 x10^3/uL (4.0-11.0) Red Blood Count 3.87 x10^6/uL (3.50-5.40) Hemoglobin 11.6 g/dL (12.0-15.5) L Hematocrit 35.8 % (36.0-47.0) L Mean Corpuscular Volume 92 fL (79-100) Mean Corpuscular Hemoglobin 30 pg (25-35) Mean Corpuscular Hemoglobin Concent 33 g/dL (31-37) Red Cell Distribution Width 16.1 % (11.5-14.5) H Platelet Count 225 x10^3/uL (140-400) Neutrophils (%) (Auto) 50 % (31-73) Lymphocytes (%) (Auto) 28 % (24-48) Monocytes (%) (Auto) 18 % (0-9) H Eosinophils (%) (Auto) 4 % (0-3) H Basophils (%) (Auto) 1 % (0-3) Neutrophils # (Auto) 3.4 x10^3uL (1.8-7.7) Lymphocytes # (Auto) 1.9 x10^3/uL (1.0-4.8) Monocytes # (Auto) 1.2 x10^3/uL (0.0-1.1) H Eosinophils # (Auto) 0.2 x10^3/uL (0.0-0.7) Basophils # (Auto) 0.1 x10^3/uL (0.0-0.2) Sodium Level 145 mmol/L (136-145) Potassium Level 4.4 mmol/L (3.5-5.1) Chloride Level 107 mmol/L (98-107) Carbon Dioxide Level 31 mmol/L (21-32) Anion Gap 7 (6-14) Blood Urea Nitrogen 37 mg/dL (7-20) H Creatinine 1.5 mg/dL (0.6-1.0) H Estimated GFR (Cockcroft-Gault) 34.2 BUN/Creatinine Ratio 25 (6-20) H Glucose Level 108 mg/dL (70-99) H Calcium Level 9.3 mg/dL (8.5-10.1) Total Bilirubin 0.2 mg/dL (0.2-1.0) Aspartate Amino Transferase (AST) 9 U/L (15-37) L Alanine Aminotransferase (ALT) 17 U/L (14-59) Alkaline Phosphatase 63 U/L (46-116) Total Protein 6.4 g/dL (6.4-8.2) Albumin 3.0 g/dL (3.4-5.0) L Albumin/Globulin Ratio 0.9 (1.0-1.7) L Glucose (Fingerstick) 104 mg/dL (70-99) H Current Medications: Meds: Laboratory Tests Test 09/30/20 06:56 09/30/20 07:34 White Blood Count 6.8 x10^3/uL Red Blood Count 3.87 x10^6/uL Hemoglobin 11.6 g/dL Hematocrit 35.8 % Mean Corpuscular Volume 92 fL Mean Corpuscular Hemoglobin 30 pg Mean Corpuscular Hemoglobin Concent 33 g/dL Red Cell Distribution Width 16.1 % Platelet Count 225 x10^3/uL Neutrophils (%) (Auto) 50 % Lymphocytes (%) (Auto) 28 % Monocytes (%) (Auto) 18 % Eosinophils (%) (Auto) 4 % Basophils (%) (Auto) 1 % Neutrophils # (Auto) 3.4 x10^3uL Lymphocytes # (Auto) 1.9 x10^3/uL Monocytes # (Auto) 1.2 x10^3/uL Eosinophils # (Auto) 0.2 x10^3/uL Basophils # (Auto) 0.1 x10^3/uL Sodium Level 145 mmol/L Potassium Level 4.4 mmol/L Chloride Level 107 mmol/L Carbon Dioxide Level 31 mmol/L Anion Gap 7 Blood Urea Nitrogen 37 mg/dL Creatinine 1.5 mg/dL Estimated GFR (Cockcroft-Gault) 34.2 BUN/Creatinine Ratio 25 Glucose Level 108 mg/dL Calcium Level 9.3 mg/dL Total Bilirubin 0.2 mg/dL Aspartate Amino Transf (AST/SGOT) 9 U/L Alanine Aminotransferase (ALT/SGPT) 17 U/L Alkaline Phosphatase 63 U/L Total Protein 6.4 g/dL Albumin 3.0 g/dL Albumin/Globulin Ratio 0.9 Glucose (Fingerstick) 104 mg/dL Current Medications Medications (Trade) Dose Ordered Sig/Annika Route PRN Reason Start Time Stop Time Status Last Admin Dose Admin Acetaminophen (Tylenol) 650 mg PRN Q6HRS PRN PO MILD PAIN / TEMP > 100.3'F 09/02/20 15:00 09/02/20 16:17 DC Multi-Ingredient Ointment (Analgesic [place]) 1 hui PRN QID PRN TP MUSCLE PAIN 09/02/20 15:00 Al Hydroxide/Mg Hydroxide (Mylanta Plus Xs) 15 ml PRN AFTMEALHC PRN PO DYSPEPSIA 09/02/20 15:00 09/02/20 16:28 DC Magnesium Hydroxide (Milk Of Magnesia) 2,400 mg PRN QHS PRN PO CONSTIPATION 09/02/20 15:00 Acetaminophen (Tylenol) 650 mg PRN Q4HRS PRN PO MILD PAIN / TEMP > 100.3'F 09/02/20 16:15 Albuterol Sulfate (Ventolin Hfa Inhaler) 2 puff BID INH 09/02/20 21:00 09/30/20 19:59 Amlodipine Besylate (Norvasc) 10 mg DAILY PO 09/03/20 09:00 09/30/20 08:21 Atenolol (Tenormin) 50 mg DAILY PO 09/03/20 09:00 09/30/20 08:21 Bupropion HCl (Wellbutrin Xl) 300 mg DAILY PO 09/03/20 09:00 09/30/20 08:56 Divalproex Sodium (Depakote Er) 1,500 mg QHS PO 09/02/20 21:00 09/08/20 20:12 DC 09/07/20 19:41 Docusate Sodium (Colace) 100 mg DAILY PO 09/03/20 09:00 09/30/20 08:56 Donepezil HCl (Aricept) 10 mg HS PO 09/02/20 21:00 09/30/20 20:00 Ferrous Sulfate (Feosol) 325 mg DAILY PO 09/03/20 09:00 09/30/20 08:22 Furosemide (Lasix) 40 mg DAILY PO 09/03/20 09:00 09/30/20 08:20 Guaifenesin (Mucinex Er) 1,200 mg BID PO 09/02/20 21:00 09/30/20 20:00 Hydralazine HCl (Apresoline) 25 mg TID PO 09/02/20 21:00 09/30/20 20:01 Levothyroxine Sodium (Synthroid) 125 mcg DAILY06 PO 09/03/20 06:00 09/30/20 06:00 Al Hydroxide/Mg Hydroxide (Mylanta Plus Xs) 30 ml PRN Q2HRS PRN PO DYSPEPSIA 09/02/20 16:15 Multi-Ingredient Ointment (Analgesic [place]) 1 hui PRN QID PRN TP MUSCLE PAIN 09/02/20 16:15 09/02/20 16:29 DC Montelukast Sodium (Singulair) 10 mg HS PO 09/02/20 21:00 09/30/20 20:00 Olanzapine (ZyPREXA ZYDIS) 2.5 mg PRN Q2HRS PRN PO psychosis/agitation 09/02/20 16:15 09/02/20 16:20 DC Pantoprazole Sodium (Protonix) 40 mg HS PO 09/02/20 21:00 09/30/20 20:00 Polyethylene Glycol (miraLAX) 17 gm DAILY PO 09/03/20 09:00 09/30/20 08:22 Artificial Tears (Artificial Tears) 2 drop BID OU 09/02/20 21:00 09/30/20 19:58 Risperidone (RisperDAL) 0.25 mg QHS PO 09/02/20 21:00 09/07/20 16:47 DC 09/06/20 20:54 Risperidone (RisperDAL) 1 mg QHS PO 09/02/20 21:00 09/07/20 16:47 DC 09/06/20 20:55 Trazodone HCl (Desyrel) 50 mg HS PO 09/02/20 21:00 09/30/20 20:00 Trazodone HCl (Desyrel) 50 mg PRN QHS PRN PO insomnia 09/02/20 16:15 Calcium/Vitamin D (Oscal D 500mg/ 200uts) 1 tab DAILY PO 09/03/20 09:00 09/30/20 08:22 Fluticasone Propionate (Flonase) 2 spray DAILY NS 09/03/20 09:00 09/30/20 08:18 Magnesium Chloride (Mag Delay) 64 mg DAILY PO 09/03/20 09:00 09/30/20 08:22 Non-Formulary Medication (Magnesium Hydroxide (Milk Of Magnesia)) 2,400 mg PRN QHS PRN PO CONSTIPATION 09/02/20 16:15 09/02/20 16:32 DC Metformin HCl (Glucophage) 1,000 mg DAILYWBKFT PO 09/03/20 08:00 09/30/20 08:20 Multivitamins/ Calcium (Thera-M Plus) 1 tab DAILY PO 09/03/20 09:00 09/30/20 08:22 Oxybutynin Chloride (Ditropan) 5 mg QHS PO 09/02/20 21:00 09/30/20 20:00 Guaifenesin (Robitussin) 100 mg PRN Q2HRS PRN PO COUGH 09/02/20 16:30 Hydrocortisone Acetate (Anucort-Hc) 25 mg PRN DAILY PRN RC RECTAL PAIN 09/02/20 16:30 Haloperidol (Haldol) 0.5 mg DAILY PO 09/08/20 09:00 09/16/20 18:34 DC 09/16/20 08:49 Valproic Acid (Depakene) 750 mg BID PO 09/08/20 21:00 09/30/20 20:01 Haloperidol (Haldol) 0.5 mg HS PO 09/17/20 21:00 09/19/20 14:00 DC 09/18/20 20:10 Mirtazapine (Remeron) 7.5 mg QHS PO 09/18/20 21:00 09/22/20 17:31 DC 09/21/20 20:33 Risperidone (RisperDAL) 1 mg 1X ONCE PO 09/19/20 14:00 09/19/20 14:06 DC 09/19/20 14:44 Risperidone (RisperDAL) 1.5 mg DAILY PO 09/20/20 09:00 09/26/20 18:01 DC 09/26/20 09:31 Mirtazapine (Remeron) 15 mg QHS PO 09/22/20 21:00 09/30/20 19:59 Risperidone (RisperDAL) 2 mg DAILY PO 09/27/20 09:00 09/30/20 08:20 I have reviewed the current psychotropics carefully including drug interactions. Risk benefit ratio favors no change other than as noted in my dictated progress note. Diagnosis: Problems: (1) Impulse control disorder, unspecified (2) Anxiety disorder, unspecified (3) Bipolar disorder, curr episode mixed, severe, with psychotic features JABARI ARBOLEDA MD Sep 30, 2020 21:53
[2020-10-01] MEDS: LEVOTHYROXINE 125 MCG TABLET PO SCH (05:58)
[2020-10-01 06:18] VITALS: BP 147/79
[2020-10-01] MEDS: ALBUTEROL SULFATE 8GM INHALER. INH SCH ×2 (07:47→19:56)
[2020-10-01] MEDS: VALPROATE ACID 250 MG/5 ML ORAL SOLUTION PO SCH ×2 (07:47→20:00)
[2020-10-01] MEDS: FLUTICASONE 50MCG/NASAL SPRAY 16GM BOTTLE. NS SCH (07:48)
[2020-10-01] MEDS: POLYVINYL ALCOHOL 1.4% OPHTH SOLUTION 15ML BOTTLE. OU SCH ×2 (07:49→19:55)
[2020-10-01] MEDS: CALCIUM CARB/VIT D3 500/200 TABLET PO SCH (07:50)
[2020-10-01] MEDS: POLYETHYLENE GLYCOL 3350 17 GM PACKET. PO SCH (07:50)
[2020-10-01] MEDS: hydrALAZINE 25 MG TABLET PO SCH ×3 (07:51→19:57)
[2020-10-01] MEDS: ATENOLOL 50 MG TABLET PO SCH (07:51)
[2020-10-01] MEDS: metFORMIN 500 MG TABLET PO SCH (07:51)
[2020-10-01] MEDS: DOCUSATE SODIUM 100 MG CAPSULE PO SCH (07:51)
[2020-10-01] MEDS: buPROPion XL 300 MG TAB.ER.24H. PO SCH (07:52)
[2020-10-01] MEDS: MULTIVITAMIN with MINERAL TABLET. PO SCH (07:52)
[2020-10-01] MEDS: MAGNESIUM CHLORIDE ER 64 MG TABLET.ER PO SCH (07:52)
[2020-10-01] MEDS: risperiDONE 2 MG TABLET. PO SCH (07:52)
[2020-10-01] MEDS: FERROUS SULFATE 325 MG TABLET. PO SCH (07:52)
[2020-10-01] MEDS: FUROSEMIDE 40 MG TABLET PO SCH (07:52)
[2020-10-01] MEDS: amLODIPine BESYLATE 10 MG TABLET PO SCH (07:54)
[2020-10-01 15:15] VITALS: BP 148/80
[2020-10-01] MEDS: MIRTAZAPINE 7.5 MG TABLET. PO SCH (19:57)
[2020-10-01] MEDS: DONEPEZIL HCL 10 MG TABLET PO SCH (19:57)
[2020-10-01] MEDS: traZODone 50 MG TABLET. PO SCH (19:58)
[2020-10-01] MEDS: MONTELUKAST 10 MG TABLET. PO SCH (19:58)
[2020-10-01] MEDS: PANTOPRAZOLE 40 MG TABLET. PO SCH (19:58)
[2020-10-01] MEDS: OXYBUTYNIN CHLORIDE 5 MG TABLET PO SCH (19:59)
--- NOTE | 2020-10-01 21:45 | PDOC ---
Exam Note: [facility] Note: Please also refer to the separate dictated note~for this date of service dictated separately.~Patient seen individually. Discussed the patient with Nursing staff reviewed the chart.~Reviewed interim history and current functioning. Reviewed vital signs,~Labs/ Radiology~and current medications noted below. Continue current treatment with the changes noted in the dictated addendum note Assessment: Vital Signs/I&O: Vital Signs Date Time Temp Pulse Resp B/P (MAP) Pulse Ox O2 Delivery O2 Flow Rate FiO2 10/01/20 19:57 61 136/83 10/01/20 15:15 98.2 18 98 10/01/20 06:18 Room Air I & O 09/30/20 09/30/20 10/01/20 15:00 23:00 07:00 Intake Total 840 ml 331 ml Balance 840 ml 331 ml Labs: Laboratory Tests Test 10/01/20 07:39 Glucose (Fingerstick) 99 mg/dL (70-99) Current Medications: Meds: Laboratory Tests Test 10/01/20 07:39 Glucose (Fingerstick) 99 mg/dL Current Medications Medications (Trade) Dose Ordered Sig/Annika Route PRN Reason Start Time Stop Time Status Last Admin Dose Admin Acetaminophen (Tylenol) 650 mg PRN Q6HRS PRN PO MILD PAIN / TEMP > 100.3'F 09/02/20 15:00 09/02/20 16:17 DC Multi-Ingredient Ointment (Analgesic [place]) 1 hui PRN QID PRN TP MUSCLE PAIN 09/02/20 15:00 Al Hydroxide/Mg Hydroxide (Mylanta Plus Xs) 15 ml PRN AFTMEALHC PRN PO DYSPEPSIA 09/02/20 15:00 09/02/20 16:28 DC Magnesium Hydroxide (Milk Of Magnesia) 2,400 mg PRN QHS PRN PO CONSTIPATION 09/02/20 15:00 Acetaminophen (Tylenol) 650 mg PRN Q4HRS PRN PO MILD PAIN / TEMP > 100.3'F 09/02/20 16:15 Albuterol Sulfate (Ventolin Hfa Inhaler) 2 puff BID INH 09/02/20 21:00 10/01/20 19:56 Amlodipine Besylate (Norvasc) 10 mg DAILY PO 09/03/20 09:00 10/01/20 07:54 Atenolol (Tenormin) 50 mg DAILY PO 09/03/20 09:00 10/01/20 07:51 Bupropion HCl (Wellbutrin Xl) 300 mg DAILY PO 09/03/20 09:00 10/01/20 07:52 Divalproex Sodium (Depakote Er) 1,500 mg QHS PO 09/02/20 21:00 09/08/20 20:12 DC 09/07/20 19:41 Docusate Sodium (Colace) 100 mg DAILY PO 09/03/20 09:00 10/01/20 07:51 Donepezil HCl (Aricept) 10 mg HS PO 09/02/20 21:00 10/01/20 19:57 Ferrous Sulfate (Feosol) 325 mg DAILY PO 09/03/20 09:00 10/01/20 07:52 Furosemide (Lasix) 40 mg DAILY PO 09/03/20 09:00 10/01/20 07:52 Guaifenesin (Mucinex Er) 1,200 mg BID PO 09/02/20 21:00 10/01/20 19:59 Hydralazine HCl (Apresoline) 25 mg TID PO 09/02/20 21:00 10/01/20 19:57 Levothyroxine Sodium (Synthroid) 125 mcg DAILY06 PO 09/03/20 06:00 10/01/20 05:58 Al Hydroxide/Mg Hydroxide (Mylanta Plus Xs) 30 ml PRN Q2HRS PRN PO DYSPEPSIA 09/02/20 16:15 Multi-Ingredient Ointment (Analgesic [place]) 1 hui PRN QID PRN TP MUSCLE PAIN 09/02/20 16:15 09/02/20 16:29 DC Montelukast Sodium (Singulair) 10 mg HS PO 09/02/20 21:00 10/01/20 19:58 Olanzapine (ZyPREXA ZYDIS) 2.5 mg PRN Q2HRS PRN PO psychosis/agitation 09/02/20 16:15 09/02/20 16:20 DC Pantoprazole Sodium (Protonix) 40 mg HS PO 09/02/20 21:00 10/01/20 19:58 Polyethylene Glycol (miraLAX) 17 gm DAILY PO 09/03/20 09:00 10/01/20 07:50 Artificial Tears (Artificial Tears) 2 drop BID OU 09/02/20 21:00 10/01/20 19:55 Risperidone (RisperDAL) 0.25 mg QHS PO 09/02/20 21:00 09/07/20 16:47 DC 09/06/20 20:54 Risperidone (RisperDAL) 1 mg QHS PO 09/02/20 21:00 09/07/20 16:47 DC 09/06/20 20:55 Trazodone HCl (Desyrel) 50 mg HS PO 09/02/20 21:00 10/01/20 19:58 Trazodone HCl (Desyrel) 50 mg PRN QHS PRN PO insomnia 09/02/20 16:15 Calcium/Vitamin D (Oscal D 500mg/ 200uts) 1 tab DAILY PO 09/03/20 09:00 10/01/20 07:50 Fluticasone Propionate (Flonase) 2 spray DAILY NS 09/03/20 09:00 10/01/20 07:48 Magnesium Chloride (Mag Delay) 64 mg DAILY PO 09/03/20 09:00 10/01/20 07:52 Non-Formulary Medication (Magnesium Hydroxide (Milk Of Magnesia)) 2,400 mg PRN QHS PRN PO CONSTIPATION 09/02/20 16:15 09/02/20 16:32 DC Metformin HCl (Glucophage) 1,000 mg DAILYWBKFT PO 09/03/20 08:00 10/01/20 07:51 Multivitamins/ Calcium (Thera-M Plus) 1 tab DAILY PO 09/03/20 09:00 10/01/20 07:52 Oxybutynin Chloride (Ditropan) 5 mg QHS PO 09/02/20 21:00 10/01/20 19:59 Guaifenesin (Robitussin) 100 mg PRN Q2HRS PRN PO COUGH 09/02/20 16:30 Hydrocortisone Acetate (Anucort-Hc) 25 mg PRN DAILY PRN RC RECTAL PAIN 09/02/20 16:30 Haloperidol (Haldol) 0.5 mg DAILY PO 09/08/20 09:00 09/16/20 18:34 DC 09/16/20 08:49 Valproic Acid (Depakene) 750 mg BID PO 09/08/20 21:00 10/01/20 20:00 Haloperidol (Haldol) 0.5 mg HS PO 09/17/20 21:00 09/19/20 14:00 DC 09/18/20 20:10 Mirtazapine (Remeron) 7.5 mg QHS PO 09/18/20 21:00 09/22/20 17:31 DC 09/21/20 20:33 Risperidone (RisperDAL) 1 mg 1X ONCE PO 09/19/20 14:00 09/19/20 14:06 DC 09/19/20 14:44 Risperidone (RisperDAL) 1.5 mg DAILY PO 09/20/20 09:00 09/26/20 18:01 DC 09/26/20 09:31 Mirtazapine (Remeron) 15 mg QHS PO 09/22/20 21:00 10/01/20 19:57 Risperidone (RisperDAL) 2 mg DAILY PO 09/27/20 09:00 10/01/20 07:52 I have reviewed the current psychotropics carefully including drug interactions. Risk benefit ratio favors no change other than as noted in my dictated progress note. Diagnosis: Problems: (1) Impulse control disorder, unspecified (2) Anxiety disorder, unspecified (3) Bipolar disorder, curr episode mixed, severe, with psychotic features JABARI ARBOLEDA MD Oct 01, 2020 21:45
[2020-10-02] MEDS: LEVOTHYROXINE 125 MCG TABLET PO SCH (05:44)
[2020-10-02 05:45] VITALS: BP 160/82
--- NOTE | 2020-10-02 06:31 | PDOC ---
Exam Note: [facility] Note: This note is a late entry for 09/30/2020 covers elements not covered in my initial note. Subjective: The patient was seen individually in the evening of 09/30/2020 with Jatinder BOND, discussed and reviewed the chart. She slept just 6-1/2 hours previous night. Overall the patient has been somewhat withdrawn, less irritable. Review of Systems: Ambulation impaired with walker. No CV, , pulmonary, eye, ENT system symptoms on review. Mental Status Exam: The patient is oriented to herself. Speech coherent. Abstraction is fair. Computation impaired. Language function is intact. Attention span is short. Mood and affect is withdrawn. No clear psychotic symptoms, suicidal or homicidal ideation. Laboratory Data: Reviewed. Impression: Bipolar disorder mixed with psychotic features in partial remission. Anxiety disorder unspecified. Impulse control disorder unspecified. Plan: No change from initial note. Assessment: Vital Signs/I&O: Vital Signs Date Time Temp Pulse Resp B/P (MAP) Pulse Ox O2 Delivery O2 Flow Rate FiO2 10/02/20 05:45 97.9 81 20 160/82 (108) 92 Room Air I & O 10/01/20 10/01/20 10/02/20 15:00 23:00 07:00 Intake Total 840 ml 240 ml 120 ml Balance 840 ml 240 ml 120 ml Labs: Laboratory Tests Test 10/01/20 07:39 Glucose (Fingerstick) 99 mg/dL (70-99) Current Medications: Meds: Laboratory Tests Test 10/01/20 07:39 Glucose (Fingerstick) 99 mg/dL Current Medications Medications (Trade) Dose Ordered Sig/Annika Route PRN Reason Start Time Stop Time Status Last Admin Dose Admin Acetaminophen (Tylenol) 650 mg PRN Q6HRS PRN PO MILD PAIN / TEMP > 100.3'F 09/02/20 15:00 09/02/20 16:17 DC Multi-Ingredient Ointment (Analgesic [place]) 1 hui PRN QID PRN TP MUSCLE PAIN 09/02/20 15:00 Al Hydroxide/Mg Hydroxide (Mylanta Plus Xs) 15 ml PRN AFTMEALHC PRN PO DYSPEPSIA 09/02/20 15:00 09/02/20 16:28 DC Magnesium Hydroxide (Milk Of Magnesia) 2,400 mg PRN QHS PRN PO CONSTIPATION 09/02/20 15:00 Acetaminophen (Tylenol) 650 mg PRN Q4HRS PRN PO MILD PAIN / TEMP > 100.3'F 09/02/20 16:15 Albuterol Sulfate (Ventolin Hfa Inhaler) 2 puff BID INH 09/02/20 21:00 10/01/20 19:56 Amlodipine Besylate (Norvasc) 10 mg DAILY PO 09/03/20 09:00 10/01/20 07:54 Atenolol (Tenormin) 50 mg DAILY PO 09/03/20 09:00 10/01/20 07:51 Bupropion HCl (Wellbutrin Xl) 300 mg DAILY PO 09/03/20 09:00 10/01/20 07:52 Divalproex Sodium (Depakote Er) 1,500 mg QHS PO 09/02/20 21:00 09/08/20 20:12 DC 09/07/20 19:41 Docusate Sodium (Colace) 100 mg DAILY PO 09/03/20 09:00 10/01/20 07:51 Donepezil HCl (Aricept) 10 mg HS PO 09/02/20 21:00 10/01/20 19:57 Ferrous Sulfate (Feosol) 325 mg DAILY PO 09/03/20 09:00 10/01/20 07:52 Furosemide (Lasix) 40 mg DAILY PO 09/03/20 09:00 10/01/20 07:52 Guaifenesin (Mucinex Er) 1,200 mg BID PO 09/02/20 21:00 10/01/20 19:59 Hydralazine HCl (Apresoline) 25 mg TID PO 09/02/20 21:00 10/01/20 19:57 Levothyroxine Sodium (Synthroid) 125 mcg DAILY06 PO 09/03/20 06:00 10/02/20 05:44 Al Hydroxide/Mg Hydroxide (Mylanta Plus Xs) 30 ml PRN Q2HRS PRN PO DYSPEPSIA 09/02/20 16:15 Multi-Ingredient Ointment (Analgesic [place]) 1 hui PRN QID PRN TP MUSCLE PAIN 09/02/20 16:15 09/02/20 16:29 DC Montelukast Sodium (Singulair) 10 mg HS PO 09/02/20 21:00 10/01/20 19:58 Olanzapine (ZyPREXA ZYDIS) 2.5 mg PRN Q2HRS PRN PO psychosis/agitation 09/02/20 16:15 09/02/20 16:20 DC Pantoprazole Sodium (Protonix) 40 mg HS PO 09/02/20 21:00 10/01/20 19:58 Polyethylene Glycol (miraLAX) 17 gm DAILY PO 09/03/20 09:00 10/01/20 07:50 Artificial Tears (Artificial Tears) 2 drop BID OU 09/02/20 21:00 10/01/20 19:55 Risperidone (RisperDAL) 0.25 mg QHS PO 09/02/20 21:00 09/07/20 16:47 DC 09/06/20 20:54 Risperidone (RisperDAL) 1 mg QHS PO 09/02/20 21:00 09/07/20 16:47 DC 09/06/20 20:55 Trazodone HCl (Desyrel) 50 mg HS PO 09/02/20 21:00 10/01/20 19:58 Trazodone HCl (Desyrel) 50 mg PRN QHS PRN PO insomnia 09/02/20 16:15 Calcium/Vitamin D (Oscal D 500mg/ 200uts) 1 tab DAILY PO 09/03/20 09:00 10/01/20 07:50 Fluticasone Propionate (Flonase) 2 spray DAILY NS 09/03/20 09:00 10/01/20 07:48 Magnesium Chloride (Mag Delay) 64 mg DAILY PO 09/03/20 09:00 10/01/20 07:52 Non-Formulary Medication (Magnesium Hydroxide (Milk Of Magnesia)) 2,400 mg PRN QHS PRN PO CONSTIPATION 09/02/20 16:15 09/02/20 16:32 DC Metformin HCl (Glucophage) 1,000 mg DAILYWBKFT PO 09/03/20 08:00 10/01/20 07:51 Multivitamins/ Calcium (Thera-M Plus) 1 tab DAILY PO 09/03/20 09:00 10/01/20 07:52 Oxybutynin Chloride (Ditropan) 5 mg QHS PO 09/02/20 21:00 10/01/20 19:59 Guaifenesin (Robitussin) 100 mg PRN Q2HRS PRN PO COUGH 09/02/20 16:30 Hydrocortisone Acetate (Anucort-Hc) 25 mg PRN DAILY PRN RC RECTAL PAIN 09/02/20 16:30 Haloperidol (Haldol) 0.5 mg DAILY PO 09/08/20 09:00 09/16/20 18:34 DC 09/16/20 08:49 Valproic Acid (Depakene) 750 mg BID PO 09/08/20 21:00 10/01/20 20:00 Haloperidol (Haldol) 0.5 mg HS PO 09/17/20 21:00 09/19/20 14:00 DC 09/18/20 20:10 Mirtazapine (Remeron) 7.5 mg QHS PO 09/18/20 21:00 09/22/20 17:31 DC 09/21/20 20:33 Risperidone (RisperDAL) 1 mg 1X ONCE PO 09/19/20 14:00 09/19/20 14:06 DC 09/19/20 14:44 Risperidone (RisperDAL) 1.5 mg DAILY PO 09/20/20 09:00 09/26/20 18:01 DC 09/26/20 09:31 Mirtazapine (Remeron) 15 mg QHS PO 09/22/20 21:00 10/01/20 19:57 Risperidone (RisperDAL) 2 mg DAILY PO 09/27/20 09:00 10/01/20 07:52 I have reviewed the current psychotropics carefully including drug interactions. Risk benefit ratio favors no change other than as noted in my dictated progress note. Diagnosis: Problems: (1) Impulse control disorder, unspecified (2) Anxiety disorder, unspecified (3) Bipolar disorder, curr episode mixed, severe, with psychotic features JABARI ARBOLEDA MD Oct 02, 2020 06:31
--- NOTE | 2020-10-02 07:02 | PDOC ---
Exam Note: [facility] Note: This note is a late entry for 10/01/2020 covers elements not covered in my initial note. Subjective: The patient was seen individually in the evening of 10/01/2020 with Geneva BOND, discussed and reviewed the chart. She slept 4-1/4 hours previous night. The patient is somewhat resistive with medications. This evening as I met with her she had gone in the back outside patio. When she came back she was somewhat defiant with the nursing staff. I did discuss this with her and she was able to find alternative ways to resolve problems. Review of Systems: Ambulation impaired with walker. No CV, , pulmonary, eye, ENT system symptoms on review. Mental Status Exam: The patient is oriented to herself. Speech coherent. Abstraction is fair. Computation impaired. Language function is intact. Attention span is short. Mood and affect is withdrawn. No clear psychotic symptoms, suicidal or homicidal ideation. Laboratory Data: Reviewed. Impression: Bipolar disorder mixed with psychotic features in partial remission. Anxiety disorder unspecified. Impulse control disorder unspecified. Plan: No change from initial note. Assessment: Vital Signs/I&O: Vital Signs Date Time Temp Pulse Resp B/P (MAP) Pulse Ox O2 Delivery O2 Flow Rate FiO2 10/02/20 05:45 97.9 81 20 160/82 (108) 92 Room Air I & O 10/01/20 10/01/20 10/02/20 15:00 23:00 07:00 Intake Total 840 ml 240 ml 120 ml Balance 840 ml 240 ml 120 ml Labs: Laboratory Tests Test 10/01/20 07:39 Glucose (Fingerstick) 99 mg/dL (70-99) Current Medications: Meds: Laboratory Tests Test 10/01/20 07:39 Glucose (Fingerstick) 99 mg/dL Current Medications Medications (Trade) Dose Ordered Sig/Annika Route PRN Reason Start Time Stop Time Status Last Admin Dose Admin Acetaminophen (Tylenol) 650 mg PRN Q6HRS PRN PO MILD PAIN / TEMP > 100.3'F 09/02/20 15:00 09/02/20 16:17 DC Multi-Ingredient Ointment (Analgesic Benedict) 1 hui PRN QID PRN TP MUSCLE PAIN 09/02/20 15:00 Al Hydroxide/Mg Hydroxide (Mylanta Plus Xs) 15 ml PRN AFTMEALHC PRN PO DYSPEPSIA 09/02/20 15:00 09/02/20 16:28 DC Magnesium Hydroxide (Milk Of Magnesia) 2,400 mg PRN QHS PRN PO CONSTIPATION 09/02/20 15:00 Acetaminophen (Tylenol) 650 mg PRN Q4HRS PRN PO MILD PAIN / TEMP > 100.3'F 09/02/20 16:15 Albuterol Sulfate (Ventolin Hfa Inhaler) 2 puff BID INH 09/02/20 21:00 10/01/20 19:56 Amlodipine Besylate (Norvasc) 10 mg DAILY PO 09/03/20 09:00 10/01/20 07:54 Atenolol (Tenormin) 50 mg DAILY PO 09/03/20 09:00 10/01/20 07:51 Bupropion HCl (Wellbutrin Xl) 300 mg DAILY PO 09/03/20 09:00 10/01/20 07:52 Divalproex Sodium (Depakote Er) 1,500 mg QHS PO 09/02/20 21:00 09/08/20 20:12 DC 09/07/20 19:41 Docusate Sodium (Colace) 100 mg DAILY PO 09/03/20 09:00 10/01/20 07:51 Donepezil HCl (Aricept) 10 mg HS PO 09/02/20 21:00 10/01/20 19:57 Ferrous Sulfate (Feosol) 325 mg DAILY PO 09/03/20 09:00 10/01/20 07:52 Furosemide (Lasix) 40 mg DAILY PO 09/03/20 09:00 10/01/20 07:52 Guaifenesin (Mucinex Er) 1,200 mg BID PO 09/02/20 21:00 10/01/20 19:59 Hydralazine HCl (Apresoline) 25 mg TID PO 09/02/20 21:00 10/01/20 19:57 Levothyroxine Sodium (Synthroid) 125 mcg DAILY06 PO 09/03/20 06:00 10/02/20 05:44 Al Hydroxide/Mg Hydroxide (Mylanta Plus Xs) 30 ml PRN Q2HRS PRN PO DYSPEPSIA 09/02/20 16:15 Multi-Ingredient Ointment (Analgesic Benedict) 1 hui PRN QID PRN TP MUSCLE PAIN 09/02/20 16:15 09/02/20 16:29 DC Montelukast Sodium (Singulair) 10 mg HS PO 09/02/20 21:00 10/01/20 19:58 Olanzapine (ZyPREXA ZYDIS) 2.5 mg PRN Q2HRS PRN PO psychosis/agitation 09/02/20 16:15 09/02/20 16:20 DC Pantoprazole Sodium (Protonix) 40 mg HS PO 09/02/20 21:00 10/01/20 19:58 Polyethylene Glycol (miraLAX) 17 gm DAILY PO 09/03/20 09:00 10/01/20 07:50 Artificial Tears (Artificial Tears) 2 drop BID OU 09/02/20 21:00 10/01/20 19:55 Risperidone (RisperDAL) 0.25 mg QHS PO 09/02/20 21:00 09/07/20 16:47 DC 09/06/20 20:54 Risperidone (RisperDAL) 1 mg QHS PO 09/02/20 21:00 09/07/20 16:47 DC 09/06/20 20:55 Trazodone HCl (Desyrel) 50 mg HS PO 09/02/20 21:00 10/01/20 19:58 Trazodone HCl (Desyrel) 50 mg PRN QHS PRN PO insomnia 09/02/20 16:15 Calcium/Vitamin D (Oscal D 500mg/ 200uts) 1 tab DAILY PO 09/03/20 09:00 10/01/20 07:50 Fluticasone Propionate (Flonase) 2 spray DAILY NS 09/03/20 09:00 10/01/20 07:48 Magnesium Chloride (Mag Delay) 64 mg DAILY PO 09/03/20 09:00 10/01/20 07:52 Non-Formulary Medication (Magnesium Hydroxide (Milk Of Magnesia)) 2,400 mg PRN QHS PRN PO CONSTIPATION 09/02/20 16:15 09/02/20 16:32 DC Metformin HCl (Glucophage) 1,000 mg DAILYWBKFT PO 09/03/20 08:00 10/01/20 07:51 Multivitamins/ Calcium (Thera-M Plus) 1 tab DAILY PO 09/03/20 09:00 10/01/20 07:52 Oxybutynin Chloride (Ditropan) 5 mg QHS PO 09/02/20 21:00 10/01/20 19:59 Guaifenesin (Robitussin) 100 mg PRN Q2HRS PRN PO COUGH 09/02/20 16:30 Hydrocortisone Acetate (Anucort-Hc) 25 mg PRN DAILY PRN RC RECTAL PAIN 09/02/20 16:30 Haloperidol (Haldol) 0.5 mg DAILY PO 09/08/20 09:00 09/16/20 18:34 DC 09/16/20 08:49 Valproic Acid (Depakene) 750 mg BID PO 09/08/20 21:00 10/01/20 20:00 Haloperidol (Haldol) 0.5 mg HS PO 09/17/20 21:00 09/19/20 14:00 DC 09/18/20 20:10 Mirtazapine (Remeron) 7.5 mg QHS PO 09/18/20 21:00 09/22/20 17:31 DC 09/21/20 20:33 Risperidone (RisperDAL) 1 mg 1X ONCE PO 09/19/20 14:00 09/19/20 14:06 DC 09/19/20 14:44 Risperidone (RisperDAL) 1.5 mg DAILY PO 09/20/20 09:00 09/26/20 18:01 DC 09/26/20 09:31 Mirtazapine (Remeron) 15 mg QHS PO 09/22/20 21:00 10/01/20 19:57 Risperidone (RisperDAL) 2 mg DAILY PO 09/27/20 09:00 10/01/20 07:52 I have reviewed the current psychotropics carefully including drug interactions. Risk benefit ratio favors no change other than as noted in my dictated progress note. Diagnosis: Problems: (1) Impulse control disorder, unspecified (2) Anxiety disorder, unspecified (3) Bipolar disorder, curr episode mixed, severe, with psychotic features JABARI ARBOLEDA MD Oct 02, 2020 07:02
[2020-10-02] MEDS: POLYVINYL ALCOHOL 1.4% OPHTH SOLUTION 15ML BOTTLE. OU SCH ×2 (08:34→19:42)
[2020-10-02] MEDS: FLUTICASONE 50MCG/NASAL SPRAY 16GM BOTTLE. NS SCH (08:34)
[2020-10-02] MEDS: VALPROATE ACID 250 MG/5 ML ORAL SOLUTION PO SCH ×2 (08:35→19:37)
[2020-10-02] MEDS: MAGNESIUM CHLORIDE ER 64 MG TABLET.ER PO SCH (08:35)
[2020-10-02] MEDS: POLYETHYLENE GLYCOL 3350 17 GM PACKET. PO SCH (08:35)
[2020-10-02] MEDS: MULTIVITAMIN with MINERAL TABLET. PO SCH (08:35)
[2020-10-02] MEDS: ALBUTEROL SULFATE 8GM INHALER. INH SCH ×2 (08:35→19:43)
[2020-10-02] MEDS: ATENOLOL 50 MG TABLET PO SCH (08:36)
[2020-10-02] MEDS: DOCUSATE SODIUM 100 MG CAPSULE PO SCH (08:36)
[2020-10-02] MEDS: buPROPion XL 300 MG TAB.ER.24H. PO SCH (08:36)
[2020-10-02] MEDS: risperiDONE 2 MG TABLET. PO SCH (08:36)
[2020-10-02] MEDS: FERROUS SULFATE 325 MG TABLET. PO SCH (08:36)
[2020-10-02] MEDS: metFORMIN 500 MG TABLET PO SCH (08:36)
[2020-10-02] MEDS: CALCIUM CARB/VIT D3 500/200 TABLET PO SCH (08:36)
[2020-10-02] MEDS: FUROSEMIDE 40 MG TABLET PO SCH (08:37)
[2020-10-02] MEDS: hydrALAZINE 25 MG TABLET PO SCH ×3 (08:37→19:39)
[2020-10-02] MEDS: amLODIPine BESYLATE 10 MG TABLET PO SCH (08:37)
[2020-10-02 15:53] VITALS: BP 135/84
[2020-10-02] MEDS: MONTELUKAST 10 MG TABLET. PO SCH (19:37)
[2020-10-02] MEDS: DONEPEZIL HCL 10 MG TABLET PO SCH (19:37)
[2020-10-02] MEDS: MIRTAZAPINE 7.5 MG TABLET. PO SCH (19:38)
[2020-10-02] MEDS: traZODone 50 MG TABLET. PO SCH (19:38)
[2020-10-02] MEDS: PANTOPRAZOLE 40 MG TABLET. PO SCH (19:39)
[2020-10-02] MEDS: OXYBUTYNIN CHLORIDE 5 MG TABLET PO SCH (19:39)
--- NOTE | 2020-10-02 21:55 | PDOC ---
Exam Note: [facility] Note: Please also refer to the separate dictated note~for this date of service dictated separately.~Patient seen individually. Discussed the patient with Nursing staff reviewed the chart.~Reviewed interim history and current functioning. Reviewed vital signs,~Labs/ Radiology~and current medications noted below. Continue current treatment with the changes noted in the dictated addendum note Assessment: Vital Signs/I&O: Vital Signs Date Time Temp Pulse Resp B/P (MAP) Pulse Ox O2 Delivery O2 Flow Rate FiO2 10/02/20 19:39 58 135/84 10/02/20 15:53 97.0 18 99 10/02/20 05:45 Room Air I & O 10/01/20 10/01/20 10/02/20 15:00 23:00 07:00 Intake Total 840 ml 240 ml 120 ml Balance 840 ml 240 ml 120 ml Labs: Laboratory Tests Test 10/02/20 08:03 Glucose (Fingerstick) 106 mg/dL (70-99) H Current Medications: Meds: Laboratory Tests Test 10/02/20 08:03 Glucose (Fingerstick) 106 mg/dL Current Medications Medications (Trade) Dose Ordered Sig/Annika Route PRN Reason Start Time Stop Time Status Last Admin Dose Admin Acetaminophen (Tylenol) 650 mg PRN Q6HRS PRN PO MILD PAIN / TEMP > 100.3'F 09/02/20 15:00 09/02/20 16:17 DC Multi-Ingredient Ointment (Analgesic Vale) 1 hui PRN QID PRN TP MUSCLE PAIN 09/02/20 15:00 Al Hydroxide/Mg Hydroxide (Mylanta Plus Xs) 15 ml PRN AFTMEALHC PRN PO DYSPEPSIA 09/02/20 15:00 09/02/20 16:28 DC Magnesium Hydroxide (Milk Of Magnesia) 2,400 mg PRN QHS PRN PO CONSTIPATION 09/02/20 15:00 Acetaminophen (Tylenol) 650 mg PRN Q4HRS PRN PO MILD PAIN / TEMP > 100.3'F 09/02/20 16:15 Albuterol Sulfate (Ventolin Hfa Inhaler) 2 puff BID INH 09/02/20 21:00 10/02/20 19:43 Amlodipine Besylate (Norvasc) 10 mg DAILY PO 09/03/20 09:00 10/02/20 08:37 Atenolol (Tenormin) 50 mg DAILY PO 09/03/20 09:00 10/02/20 08:36 Bupropion HCl (Wellbutrin Xl) 300 mg DAILY PO 09/03/20 09:00 10/02/20 08:36 Divalproex Sodium (Depakote Er) 1,500 mg QHS PO 09/02/20 21:00 09/08/20 20:12 DC 09/07/20 19:41 Docusate Sodium (Colace) 100 mg DAILY PO 09/03/20 09:00 10/02/20 08:36 Donepezil HCl (Aricept) 10 mg HS PO 09/02/20 21:00 10/02/20 19:37 Ferrous Sulfate (Feosol) 325 mg DAILY PO 09/03/20 09:00 10/02/20 08:36 Furosemide (Lasix) 40 mg DAILY PO 09/03/20 09:00 10/02/20 08:37 Guaifenesin (Mucinex Er) 1,200 mg BID PO 09/02/20 21:00 10/02/20 19:37 Hydralazine HCl (Apresoline) 25 mg TID PO 09/02/20 21:00 10/02/20 19:39 Levothyroxine Sodium (Synthroid) 125 mcg DAILY06 PO 09/03/20 06:00 10/02/20 05:44 Al Hydroxide/Mg Hydroxide (Mylanta Plus Xs) 30 ml PRN Q2HRS PRN PO DYSPEPSIA 09/02/20 16:15 Multi-Ingredient Ointment (Analgesic Vale) 1 hui PRN QID PRN TP MUSCLE PAIN 09/02/20 16:15 09/02/20 16:29 DC Montelukast Sodium (Singulair) 10 mg HS PO 09/02/20 21:00 10/02/20 19:37 Olanzapine (ZyPREXA ZYDIS) 2.5 mg PRN Q2HRS PRN PO psychosis/agitation 09/02/20 16:15 09/02/20 16:20 DC Pantoprazole Sodium (Protonix) 40 mg HS PO 09/02/20 21:00 10/02/20 19:39 Polyethylene Glycol (miraLAX) 17 gm DAILY PO 09/03/20 09:00 10/02/20 08:35 Artificial Tears (Artificial Tears) 2 drop BID OU 09/02/20 21:00 10/02/20 19:42 Risperidone (RisperDAL) 0.25 mg QHS PO 09/02/20 21:00 09/07/20 16:47 DC 09/06/20 20:54 Risperidone (RisperDAL) 1 mg QHS PO 09/02/20 21:00 09/07/20 16:47 DC 09/06/20 20:55 Trazodone HCl (Desyrel) 50 mg HS PO 09/02/20 21:00 10/02/20 19:38 Trazodone HCl (Desyrel) 50 mg PRN QHS PRN PO insomnia 09/02/20 16:15 Calcium/Vitamin D (Oscal D 500mg/ 200uts) 1 tab DAILY PO 09/03/20 09:00 10/02/20 08:36 Fluticasone Propionate (Flonase) 2 spray DAILY NS 09/03/20 09:00 10/02/20 08:34 Magnesium Chloride (Mag Delay) 64 mg DAILY PO 09/03/20 09:00 10/02/20 08:35 Non-Formulary Medication (Magnesium Hydroxide (Milk Of Magnesia)) 2,400 mg PRN QHS PRN PO CONSTIPATION 09/02/20 16:15 09/02/20 16:32 DC Metformin HCl (Glucophage) 1,000 mg DAILYWBKFT PO 09/03/20 08:00 10/02/20 08:36 Multivitamins/ Calcium (Thera-M Plus) 1 tab DAILY PO 09/03/20 09:00 10/02/20 08:35 Oxybutynin Chloride (Ditropan) 5 mg QHS PO 09/02/20 21:00 10/02/20 19:39 Guaifenesin (Robitussin) 100 mg PRN Q2HRS PRN PO COUGH 09/02/20 16:30 Hydrocortisone Acetate (Anucort-Hc) 25 mg PRN DAILY PRN RC RECTAL PAIN 09/02/20 16:30 Haloperidol (Haldol) 0.5 mg DAILY PO 09/08/20 09:00 09/16/20 18:34 DC 09/16/20 08:49 Valproic Acid (Depakene) 750 mg BID PO 09/08/20 21:00 10/02/20 19:37 Haloperidol (Haldol) 0.5 mg HS PO 09/17/20 21:00 09/19/20 14:00 DC 09/18/20 20:10 Mirtazapine (Remeron) 7.5 mg QHS PO 09/18/20 21:00 09/22/20 17:31 DC 09/21/20 20:33 Risperidone (RisperDAL) 1 mg 1X ONCE PO 09/19/20 14:00 09/19/20 14:06 DC 09/19/20 14:44 Risperidone (RisperDAL) 1.5 mg DAILY PO 09/20/20 09:00 09/26/20 18:01 DC 09/26/20 09:31 Mirtazapine (Remeron) 15 mg QHS PO 09/22/20 21:00 10/02/20 19:38 Risperidone (RisperDAL) 2 mg DAILY PO 09/27/20 09:00 10/02/20 08:36 I have reviewed the current psychotropics carefully including drug interactions. Risk benefit ratio favors no change other than as noted in my dictated progress note. Diagnosis: Problems: (1) Impulse control disorder, unspecified (2) Anxiety disorder, unspecified (3) Bipolar disorder, curr episode mixed, severe, with psychotic features JABARI ARBOLEDA MD Oct 02, 2020 21:55
[2020-10-03] MEDS: LEVOTHYROXINE 125 MCG TABLET PO SCH (05:40)
[2020-10-03 05:54] VITALS: BP 132/73
[2020-10-03] MEDS: FLUTICASONE 50MCG/NASAL SPRAY 16GM BOTTLE. NS SCH (09:00)
[2020-10-03] MEDS: POLYVINYL ALCOHOL 1.4% OPHTH SOLUTION 15ML BOTTLE. OU SCH ×2 (09:00→20:48)
[2020-10-03] MEDS: ALBUTEROL SULFATE 8GM INHALER. INH SCH ×2 (09:00→20:49)
[2020-10-03] MEDS: POLYETHYLENE GLYCOL 3350 17 GM PACKET. PO SCH (09:35)
[2020-10-03] MEDS: VALPROATE ACID 250 MG/5 ML ORAL SOLUTION PO SCH ×2 (09:36→20:48)
[2020-10-03] MEDS: risperiDONE 2 MG TABLET. PO SCH (09:36)
[2020-10-03] MEDS: MULTIVITAMIN with MINERAL TABLET. PO SCH (09:36)
[2020-10-03] MEDS: metFORMIN 500 MG TABLET PO SCH (09:36)
[2020-10-03] MEDS: CALCIUM CARB/VIT D3 500/200 TABLET PO SCH (09:36)
[2020-10-03] MEDS: buPROPion XL 300 MG TAB.ER.24H. PO SCH (09:36)
[2020-10-03] MEDS: FERROUS SULFATE 325 MG TABLET. PO SCH (09:37)
[2020-10-03] MEDS: amLODIPine BESYLATE 10 MG TABLET PO SCH (09:37)
[2020-10-03] MEDS: DOCUSATE SODIUM 100 MG CAPSULE PO SCH (09:37)
[2020-10-03] MEDS: hydrALAZINE 25 MG TABLET PO SCH ×3 (09:37→20:49)
[2020-10-03] MEDS: MAGNESIUM CHLORIDE ER 64 MG TABLET.ER PO SCH (09:37)
[2020-10-03] MEDS: FUROSEMIDE 40 MG TABLET PO SCH (09:38)
[2020-10-03] MEDS: ATENOLOL 50 MG TABLET PO SCH (09:38)
--- NOTE | 2020-10-03 11:11 | TX PLAN ---
Interdisciplinary Tx Plan Admission Information Sep 02, 2020 at 14:35 Legal Status (on Admission): Voluntary DPOA/Guardian Name: Comfort Bryan Contact or Other Contact Name: [facility] Other Contact Verified Code Status: DNR Allergies: Coded Allergies: adhesive (Verified Allergy, Intermediate, 02/22/20) fluoxetine (Verified Allergy, Intermediate, 02/22/20) Penicillins (Verified Allergy, Unknown, 09/03/20) Diagnoses Primary Diagnosis: Bipolar D/O, recent episode manic Reasons for Admission: Sig. Change Sleep, Poor impulse control, Other Problem in Patient's Words: Assuming natural progression within pt dx. Additional Admission Comments: According to the intake, pt is refusing medications, refusing vitals, suspicious of staff, pointed knife at staff, who found knife under pt pillow, impulsive, insomnia Problems Active Problems: resistive to medications refusal of vitals impulsive hard to redirect Inactive Problems: no insomnia noted Pt Strengths/Limitations Ability for [place]: Poor Cognitive Functioning/Ability: Fair Communication Skills/Ability: Poor Financial Resources: Fair Insight/Judgement: Poor Intellectual Ability: Poor Physical Health: Poor Social Skills: Poor Stability in Family: Fair Stability in School/Work: Poor Verbal Skills: Fair Discharge Criteria Discharge Criteria: Adequate arrangements @DC, Improved behavior, Improved mood/thought Preliminary Discharge Plan Preliminary DC Plan: Current Living Arrange. Special Precautions Fall Risk: Low Initial D/C Plan Pt to return to [facility] Identified Discharge Needs: Referrals for psychiatric services Currently Utilized Resources Currently Utilized Resources/P: Primary Care Physician Identified Problems/Hx/Goals Objectives/Short-Term Goals Short Term Goals: Dec. Aggression, Dec. Outbursts, Medication Stabilization, Monitor Med Effects, Promote Coping Skill Short Term Goals in Patient's: na Interventions/Frequency Staff Interventions/Frequency&: Psychiatrist to assess pt at least 3x per week for medication management. Social Work to assess pt at least 2x per week to identify barriers to care and completion of final discharge plans. Nursing to assess medication effects, behavior modification and completion of 15 minute checks. Encourage participation in group activities (if applicable) or 1:1 engagement based off activity dept goals History Vocational History: Pt refused to answer questions at this time. 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 Pt continues to take medications but does need encouragement through the process. Pt is mostly calm and at times is withdrawn to her room; pt did attend six groups in this last week with moderate participation. Pt facility is initiating a "resident review" in which SW is fighting to have pt discharged back to them to have it completed versus pt staying on [facility]. SHAKA will continue to work with pt family, the state and pt facility on getting pt discharged within the next week if possible. CHARLES POPE Oct 03, 2020 11:11
[2020-10-03 17:48] VITALS: BP 137/85
[2020-10-03] MEDS: OXYBUTYNIN CHLORIDE 5 MG TABLET PO SCH (20:48)
[2020-10-03] MEDS: MIRTAZAPINE 7.5 MG TABLET. PO SCH (20:48)
[2020-10-03] MEDS: PANTOPRAZOLE 40 MG TABLET. PO SCH (20:48)
[2020-10-03] MEDS: traZODone 50 MG TABLET. PO SCH (20:48)
[2020-10-03] MEDS: MONTELUKAST 10 MG TABLET. PO SCH (20:48)
[2020-10-03] MEDS: DONEPEZIL HCL 10 MG TABLET PO SCH (20:49)
--- NOTE | 2020-10-03 21:56 | PDOC ---
Exam Note: [facility] Note: Please also refer to the separate dictated note~for this date of service dictated separately.~Patient seen individually. Discussed the patient with Nursing staff reviewed the chart.~Reviewed interim history and current functioning. Reviewed vital signs,~Labs/ Radiology~and current medications noted below. Continue current treatment with the changes noted in the dictated addendum note Assessment: Vital Signs/I&O: Vital Signs Date Time Temp Pulse Resp B/P (MAP) Pulse Ox O2 Delivery O2 Flow Rate FiO2 10/03/20 20:49 73 137/85 10/03/20 17:48 98.1 18 92 10/02/20 05:45 Room Air I & O 10/02/20 10/02/20 10/03/20 15:00 23:00 07:00 Intake Total 840 ml 220 ml 120 ml Balance 840 ml 220 ml 120 ml Labs: Laboratory Tests Test 10/03/20 07:51 Glucose (Fingerstick) 109 mg/dL (70-99) H Current Medications: Meds: Laboratory Tests Test 10/03/20 07:51 Glucose (Fingerstick) 109 mg/dL Current Medications Medications (Trade) Dose Ordered Sig/Annika Route PRN Reason Start Time Stop Time Status Last Admin Dose Admin Acetaminophen (Tylenol) 650 mg PRN Q6HRS PRN PO MILD PAIN / TEMP > 100.3'F 09/02/20 15:00 09/02/20 16:17 DC Multi-Ingredient Ointment (Analgesic Retso[place]) 1 hui PRN QID PRN TP MUSCLE PAIN 09/02/20 15:00 Al Hydroxide/Mg Hydroxide (Mylanta Plus Xs) 15 ml PRN AFTMEALHC PRN PO DYSPEPSIA 09/02/20 15:00 09/02/20 16:28 DC Magnesium Hydroxide (Milk Of Magnesia) 2,400 mg PRN QHS PRN PO CONSTIPATION 09/02/20 15:00 Acetaminophen (Tylenol) 650 mg PRN Q4HRS PRN PO MILD PAIN / TEMP > 100.3'F 09/02/20 16:15 Albuterol Sulfate (Ventolin Hfa Inhaler) 2 puff BID INH 09/02/20 21:00 10/03/20 20:49 Amlodipine Besylate (Norvasc) 10 mg DAILY PO 09/03/20 09:00 10/03/20 09:37 Atenolol (Tenormin) 50 mg DAILY PO 09/03/20 09:00 10/03/20 09:38 Bupropion HCl (Wellbutrin Xl) 300 mg DAILY PO 09/03/20 09:00 10/03/20 09:36 Divalproex Sodium (Depakote Er) 1,500 mg QHS PO 09/02/20 21:00 09/08/20 20:12 DC 09/07/20 19:41 Docusate Sodium (Colace) 100 mg DAILY PO 09/03/20 09:00 10/03/20 09:37 Donepezil HCl (Aricept) 10 mg HS PO 09/02/20 21:00 10/03/20 20:49 Ferrous Sulfate (Feosol) 325 mg DAILY PO 09/03/20 09:00 10/03/20 09:37 Furosemide (Lasix) 40 mg DAILY PO 09/03/20 09:00 10/03/20 09:38 Guaifenesin (Mucinex Er) 1,200 mg BID PO 09/02/20 21:00 10/03/20 20:49 Hydralazine HCl (Apresoline) 25 mg TID PO 09/02/20 21:00 10/03/20 20:49 Levothyroxine Sodium (Synthroid) 125 mcg DAILY06 PO 09/03/20 06:00 10/03/20 05:40 Al Hydroxide/Mg Hydroxide (Mylanta Plus Xs) 30 ml PRN Q2HRS PRN PO DYSPEPSIA 09/02/20 16:15 Multi-Ingredient Ointment (Analgesic Retsof) 1 hui PRN QID PRN TP MUSCLE PAIN 09/02/20 16:15 09/02/20 16:29 DC Montelukast Sodium (Singulair) 10 mg HS PO 09/02/20 21:00 10/03/20 20:48 Olanzapine (ZyPREXA ZYDIS) 2.5 mg PRN Q2HRS PRN PO psychosis/agitation 09/02/20 16:15 09/02/20 16:20 DC Pantoprazole Sodium (Protonix) 40 mg HS PO 09/02/20 21:00 10/03/20 20:48 Polyethylene Glycol (miraLAX) 17 gm DAILY PO 09/03/20 09:00 10/03/20 09:35 Artificial Tears (Artificial Tears) 2 drop BID OU 09/02/20 21:00 10/03/20 20:48 Risperidone (RisperDAL) 0.25 mg QHS PO 09/02/20 21:00 09/07/20 16:47 DC 09/06/20 20:54 Risperidone (RisperDAL) 1 mg QHS PO 09/02/20 21:00 09/07/20 16:47 DC 09/06/20 20:55 Trazodone HCl (Desyrel) 50 mg HS PO 09/02/20 21:00 10/03/20 20:48 Trazodone HCl (Desyrel) 50 mg PRN QHS PRN PO insomnia 09/02/20 16:15 Calcium/Vitamin D (Oscal D 500mg/ 200uts) 1 tab DAILY PO 09/03/20 09:00 10/03/20 09:36 Fluticasone Propionate (Flonase) 2 spray DAILY NS 09/03/20 09:00 10/03/20 09:00 Magnesium Chloride (Mag Delay) 64 mg DAILY PO 09/03/20 09:00 10/03/20 09:37 Non-Formulary Medication (Magnesium Hydroxide (Milk Of Magnesia)) 2,400 mg PRN QHS PRN PO CONSTIPATION 09/02/20 16:15 09/02/20 16:32 DC Metformin HCl (Glucophage) 1,000 mg DAILYWBKFT PO 09/03/20 08:00 10/03/20 09:36 Multivitamins/ Calcium (Thera-M Plus) 1 tab DAILY PO 09/03/20 09:00 10/03/20 09:36 Oxybutynin Chloride (Ditropan) 5 mg QHS PO 09/02/20 21:00 10/03/20 20:48 Guaifenesin (Robitussin) 100 mg PRN Q2HRS PRN PO COUGH 09/02/20 16:30 Hydrocortisone Acetate (Anucort-Hc) 25 mg PRN DAILY PRN RC RECTAL PAIN 09/02/20 16:30 Haloperidol (Haldol) 0.5 mg DAILY PO 09/08/20 09:00 09/16/20 18:34 DC 09/16/20 08:49 Valproic Acid (Depakene) 750 mg BID PO 09/08/20 21:00 10/03/20 20:48 Haloperidol (Haldol) 0.5 mg HS PO 09/17/20 21:00 09/19/20 14:00 DC 09/18/20 20:10 Mirtazapine (Remeron) 7.5 mg QHS PO 09/18/20 21:00 09/22/20 17:31 DC 09/21/20 20:33 Risperidone (RisperDAL) 1 mg 1X ONCE PO 09/19/20 14:00 09/19/20 14:06 DC 09/19/20 14:44 Risperidone (RisperDAL) 1.5 mg DAILY PO 09/20/20 09:00 09/26/20 18:01 DC 09/26/20 09:31 Mirtazapine (Remeron) 15 mg QHS PO 09/22/20 21:00 10/03/20 20:48 Risperidone (RisperDAL) 2 mg DAILY PO 09/27/20 09:00 10/03/20 09:36 I have reviewed the current psychotropics carefully including drug interactions. Risk benefit ratio favors no change other than as noted in my dictated progress note. Diagnosis: Problems: (1) Impulse control disorder, unspecified (2) Anxiety disorder, unspecified (3) Bipolar disorder, curr episode mixed, severe, with psychotic features JABARI ARBOLEDA MD Oct 03, 2020 21:56
[2020-10-04] MEDS: LEVOTHYROXINE 125 MCG TABLET PO SCH (04:59)
[2020-10-04 05:55] VITALS: BP 164/91
[2020-10-04] MEDS: ALBUTEROL SULFATE 8GM INHALER. INH SCH ×2 (09:00→21:07)
[2020-10-04] MEDS: buPROPion XL 300 MG TAB.ER.24H. PO SCH (09:58)
[2020-10-04] MEDS: risperiDONE 2 MG TABLET. PO SCH (09:58)
[2020-10-04] MEDS: hydrALAZINE 25 MG TABLET PO SCH ×3 (09:58→21:09)
[2020-10-04] MEDS: amLODIPine BESYLATE 10 MG TABLET PO SCH (09:58)
[2020-10-04] MEDS: VALPROATE ACID 250 MG/5 ML ORAL SOLUTION PO SCH ×2 (09:59→21:08)
[2020-10-04] MEDS: FUROSEMIDE 40 MG TABLET PO SCH (09:59)
[2020-10-04] MEDS: ATENOLOL 50 MG TABLET PO SCH (09:59)
[2020-10-04] MEDS: metFORMIN 500 MG TABLET PO SCH (09:59)
[2020-10-04] MEDS: POLYETHYLENE GLYCOL 3350 17 GM PACKET. PO SCH (10:05)
[2020-10-04] MEDS: FERROUS SULFATE 325 MG TABLET. PO SCH (10:06)
[2020-10-04] MEDS: MAGNESIUM CHLORIDE ER 64 MG TABLET.ER PO SCH (10:06)
[2020-10-04] MEDS: MULTIVITAMIN with MINERAL TABLET. PO SCH (10:06)
[2020-10-04] MEDS: CALCIUM CARB/VIT D3 500/200 TABLET PO SCH (10:06)
[2020-10-04] MEDS: DOCUSATE SODIUM 100 MG CAPSULE PO SCH (10:06)
[2020-10-04] MEDS: POLYVINYL ALCOHOL 1.4% OPHTH SOLUTION 15ML BOTTLE. OU SCH ×4 (10:07→22:02)
[2020-10-04] MEDS: FLUTICASONE 50MCG/NASAL SPRAY 16GM BOTTLE. NS SCH (10:08)
[2020-10-04 15:48] VITALS: BP 144/85
[2020-10-04] MEDS: PANTOPRAZOLE 40 MG TABLET. PO SCH (21:08)
[2020-10-04] MEDS: MONTELUKAST 10 MG TABLET. PO SCH (21:08)
[2020-10-04] MEDS: MIRTAZAPINE 7.5 MG TABLET. PO SCH (21:08)
[2020-10-04] MEDS: DONEPEZIL HCL 10 MG TABLET PO SCH (21:09)
[2020-10-04] MEDS: traZODone 50 MG TABLET. PO SCH (21:09)
[2020-10-04] MEDS: OXYBUTYNIN CHLORIDE 5 MG TABLET PO SCH (21:09)
--- NOTE | 2020-10-04 22:09 | PDOC ---
Exam Note: [facility] Note: Please also refer to the separate dictated note~for this date of service dictated separately.~Patient seen individually. Discussed the patient with Nursing staff reviewed the chart.~Reviewed interim history and current functioning. Reviewed vital signs,~Labs/ Radiology~and current medications noted below. Continue current treatment with the changes noted in the dictated addendum note Assessment: Vital Signs/I&O: Vital Signs Date Time Temp Pulse Resp B/P (MAP) Pulse Ox O2 Delivery O2 Flow Rate FiO2 10/04/20 21:09 67 144/85 10/04/20 15:48 97.7 16 94 Room Air I & O 10/03/20 10/03/20 10/04/20 15:00 23:00 07:00 Intake Total 601 ml 1341 ml Balance 601 ml 1341 ml Current Medications: Meds: Current Medications Medications (Trade) Dose Ordered Sig/Annika Route PRN Reason Start Time Stop Time Status Last Admin Dose Admin Acetaminophen (Tylenol) 650 mg PRN Q6HRS PRN PO MILD PAIN / TEMP > 100.3'F 09/02/20 15:00 09/02/20 16:17 DC Multi-Ingredient Ointment (Analgesic [place]) 1 hui PRN QID PRN TP MUSCLE PAIN 09/02/20 15:00 Al Hydroxide/Mg Hydroxide (Mylanta Plus Xs) 15 ml PRN AFTMEALHC PRN PO DYSPEPSIA 09/02/20 15:00 09/02/20 16:28 DC Magnesium Hydroxide (Milk Of Magnesia) 2,400 mg PRN QHS PRN PO CONSTIPATION 09/02/20 15:00 Acetaminophen (Tylenol) 650 mg PRN Q4HRS PRN PO MILD PAIN / TEMP > 100.3'F 09/02/20 16:15 Albuterol Sulfate (Ventolin Hfa Inhaler) 2 puff BID INH 09/02/20 21:00 10/04/20 21:07 Amlodipine Besylate (Norvasc) 10 mg DAILY PO 09/03/20 09:00 10/04/20 09:58 Atenolol (Tenormin) 50 mg DAILY PO 09/03/20 09:00 10/04/20 09:59 Bupropion HCl (Wellbutrin Xl) 300 mg DAILY PO 09/03/20 09:00 10/04/20 09:58 Divalproex Sodium (Depakote Er) 1,500 mg QHS PO 09/02/20 21:00 09/08/20 20:12 DC 09/07/20 19:41 Docusate Sodium (Colace) 100 mg DAILY PO 09/03/20 09:00 10/04/20 10:06 Donepezil HCl (Aricept) 10 mg HS PO 09/02/20 21:00 10/04/20 21:09 Ferrous Sulfate (Feosol) 325 mg DAILY PO 09/03/20 09:00 10/04/20 10:06 Furosemide (Lasix) 40 mg DAILY PO 09/03/20 09:00 10/04/20 09:59 Guaifenesin (Mucinex Er) 1,200 mg BID PO 09/02/20 21:00 10/04/20 21:08 Hydralazine HCl (Apresoline) 25 mg TID PO 09/02/20 21:00 10/04/20 21:09 Levothyroxine Sodium (Synthroid) 125 mcg DAILY06 PO 09/03/20 06:00 10/04/20 04:59 Al Hydroxide/Mg Hydroxide (Mylanta Plus Xs) 30 ml PRN Q2HRS PRN PO DYSPEPSIA 09/02/20 16:15 Multi-Ingredient Ointment (Analgesic [place]) 1 hui PRN QID PRN TP MUSCLE PAIN 09/02/20 16:15 09/02/20 16:29 DC Montelukast Sodium (Singulair) 10 mg HS PO 09/02/20 21:00 10/04/20 21:08 Olanzapine (ZyPREXA ZYDIS) 2.5 mg PRN Q2HRS PRN PO psychosis/agitation 09/02/20 16:15 09/02/20 16:20 DC Pantoprazole Sodium (Protonix) 40 mg HS PO 09/02/20 21:00 10/04/20 21:08 Polyethylene Glycol (miraLAX) 17 gm DAILY PO 09/03/20 09:00 10/04/20 10:05 Artificial Tears (Artificial Tears) 2 drop BID OU 09/02/20 21:00 10/04/20 10:07 Risperidone (RisperDAL) 0.25 mg QHS PO 09/02/20 21:00 09/07/20 16:47 DC 4/21 20:54 Risperidone (RisperDAL) 1 mg QHS PO 09/02/20 21:00 09/07/20 16:47 DC 09/06/20 20:55 Trazodone HCl (Desyrel) 50 mg HS PO 09/02/20 21:00 10/04/20 21:09 Trazodone HCl (Desyrel) 50 mg PRN QHS PRN PO insomnia 09/02/20 16:15 Calcium/Vitamin D (Oscal D 500mg/ 200uts) 1 tab DAILY PO 09/03/20 09:00 10/04/20 10:06 Fluticasone Propionate (Flonase) 2 spray DAILY NS 09/03/20 09:00 10/04/20 10:08 Magnesium Chloride (Mag Delay) 64 mg DAILY PO 09/03/20 09:00 10/04/20 10:06 Non-Formulary Medication (Magnesium Hydroxide (Milk Of Magnesia)) 2,400 mg PRN QHS PRN PO CONSTIPATION 09/02/20 16:15 09/02/20 16:32 DC Metformin HCl (Glucophage) 1,000 mg DAILYWBKFT PO 09/03/20 08:00 10/04/20 09:59 Multivitamins/ Calcium (Thera-M Plus) 1 tab DAILY PO 09/03/20 09:00 10/04/20 10:06 Oxybutynin Chloride (Ditropan) 5 mg QHS PO 09/02/20 21:00 10/04/20 21:09 Guaifenesin (Robitussin) 100 mg PRN Q2HRS PRN PO COUGH 09/02/20 16:30 Hydrocortisone Acetate (Anucort-Hc) 25 mg PRN DAILY PRN RC RECTAL PAIN 09/02/20 16:30 Haloperidol (Haldol) 0.5 mg DAILY PO 09/08/20 09:00 09/16/20 18:34 DC 09/16/20 08:49 Valproic Acid (Depakene) 750 mg BID PO 09/08/20 21:00 10/04/20 21:08 Haloperidol (Haldol) 0.5 mg HS PO 09/17/20 21:00 09/19/20 14:00 DC 09/18/20 20:10 Mirtazapine (Remeron) 7.5 mg QHS PO 09/18/20 21:00 09/22/20 17:31 DC 09/21/20 20:33 Risperidone (RisperDAL) 1 mg 1X ONCE PO 09/19/20 14:00 09/19/20 14:06 DC 09/19/20 14:44 Risperidone (RisperDAL) 1.5 mg DAILY PO 09/20/20 09:00 09/26/20 18:01 DC 09/26/20 09:31 Mirtazapine (Remeron) 15 mg QHS PO 09/22/20 21:00 10/04/20 21:08 Risperidone (RisperDAL) 2 mg DAILY PO 09/27/20 09:00 10/04/20 09:58 I have reviewed the current psychotropics carefully including drug interactions. Risk benefit ratio favors no change other than as noted in my dictated progress note. Diagnosis: Problems: (1) Impulse control disorder, unspecified (2) Anxiety disorder, unspecified (3) Bipolar disorder, curr episode mixed, severe, with psychotic features JABARI ARBOLEDA MD Oct 04, 2020 22:09
[2020-10-05] MEDS: LEVOTHYROXINE 125 MCG TABLET PO SCH (05:52)
[2020-10-05 06:24] VITALS: BP 147/75
--- NOTE | 2020-10-05 07:31 | PDOC ---
Exam Note: [facility] Note: This note is a late entry for 10/02/2020 covers elements not covered in my initial note. Subjective: The patient was seen individually in the evening of 10/02/2020 with Hugo BOND, discussed and reviewed the chart. She slept 6-1/2 hours previous night. The patient is suspicious of her medications, often takes one at a time. She goes into the room of other patients and urinates on their beds. We discussed at some length initiating her behavior modification chart with positive feedback for times she does not have this behavior. Review of Systems: Ambulation impaired with walker. No CV, , pulmonary, eye, ENT system symptoms on review. Mental Status Exam: The patient is oriented to herself. Speech coherent. Abstraction is fair. Computation impaired. Language function is intact. Attention span is short. Mood and affect is withdrawn. No clear psychotic symptoms, suicidal or homicidal ideation. Laboratory Data: Reviewed. Impression: Bipolar disorder mixed with psychotic features in partial remission. Anxiety disorder unspecified. Impulse control disorder unspecified. Plan: No change from initial note. Assessment: Vital Signs/I&O: Vital Signs Date Time Temp Pulse Resp B/P (MAP) Pulse Ox O2 Delivery O2 Flow Rate FiO2 10/05/20 06:24 97.5 51 15 147/75 (99) 94 10/04/20 15:48 Room Air I & O 10/04/20 10/04/20 10/05/20 15:00 23:00 07:00 Intake Total 480 ml 360 ml Balance 480 ml 360 ml Current Medications: Meds: Current Medications Medications (Trade) Dose Ordered Sig/Annika Route PRN Reason Start Time Stop Time Status Last Admin Dose Admin Acetaminophen (Tylenol) 650 mg PRN Q6HRS PRN PO MILD PAIN / TEMP > 100.3'F 09/02/20 15:00 09/02/20 16:17 DC Multi-Ingredient Ointment (Analgesic [place]) 1 hui PRN QID PRN TP MUSCLE PAIN 09/02/20 15:00 Al Hydroxide/Mg Hydroxide (Mylanta Plus Xs) 15 ml PRN AFTMEALHC PRN PO DYSPEPSIA 09/02/20 15:00 09/02/20 16:28 DC Magnesium Hydroxide (Milk Of Magnesia) 2,400 mg PRN QHS PRN PO CONSTIPATION 09/02/20 15:00 Acetaminophen (Tylenol) 650 mg PRN Q4HRS PRN PO MILD PAIN / TEMP > 100.3'F 09/02/20 16:15 Albuterol Sulfate (Ventolin Hfa Inhaler) 2 puff BID INH 09/02/20 21:00 10/04/20 21:07 Amlodipine Besylate (Norvasc) 10 mg DAILY PO 09/03/20 09:00 10/04/20 09:58 Atenolol (Tenormin) 50 mg DAILY PO 09/03/20 09:00 10/04/20 09:59 Bupropion HCl (Wellbutrin Xl) 300 mg DAILY PO 09/03/20 09:00 10/04/20 09:58 Divalproex Sodium (Depakote Er) 1,500 mg QHS PO 09/02/20 21:00 09/08/20 20:12 DC 09/07/20 19:41 Docusate Sodium (Colace) 100 mg DAILY PO 09/03/20 09:00 10/04/20 10:06 Donepezil HCl (Aricept) 10 mg HS PO 09/02/20 21:00 10/04/20 21:09 Ferrous Sulfate (Feosol) 325 mg DAILY PO 09/03/20 09:00 10/04/20 10:06 Furosemide (Lasix) 40 mg DAILY PO 09/03/20 09:00 10/04/20 09:59 Guaifenesin (Mucinex Er) 1,200 mg BID PO 09/02/20 21:00 10/04/20 21:08 Hydralazine HCl (Apresoline) 25 mg TID PO 09/02/20 21:00 10/04/20 21:09 Levothyroxine Sodium (Synthroid) 125 mcg DAILY06 PO 09/03/20 06:00 10/05/20 05:52 Al Hydroxide/Mg Hydroxide (Mylanta Plus Xs) 30 ml PRN Q2HRS PRN PO DYSPEPSIA 09/02/20 16:15 Multi-Ingredient Ointment (Analgesic [place]) 1 hui PRN QID PRN TP MUSCLE PAIN 09/02/20 16:15 09/02/20 16:29 DC Montelukast Sodium (Singulair) 10 mg HS PO 09/02/20 21:00 10/04/20 21:08 Olanzapine (ZyPREXA ZYDIS) 2.5 mg PRN Q2HRS PRN PO psychosis/agitation 09/02/20 16:15 09/02/20 16:20 DC Pantoprazole Sodium (Protonix) 40 mg HS PO 09/02/20 21:00 10/04/20 21:08 Polyethylene Glycol (miraLAX) 17 gm DAILY PO 09/03/20 09:00 10/04/20 10:05 Artificial Tears (Artificial Tears) 2 drop BID OU 09/02/20 21:00 10/04/20 10:07 Risperidone (RisperDAL) 0.25 mg QHS PO 09/02/20 21:00 09/07/20 16:47 DC 09/06/20 20:54 Risperidone (RisperDAL) 1 mg QHS PO 09/02/20 21:00 09/07/20 16:47 DC 09/06/20 20:55 Trazodone HCl (Desyrel) 50 mg HS PO 09/02/20 21:00 10/04/20 21:09 Trazodone HCl (Desyrel) 50 mg PRN QHS PRN PO insomnia 09/02/20 16:15 Calcium/Vitamin D (Oscal D 500mg/ 200uts) 1 tab DAILY PO 09/03/20 09:00 10/04/20 10:06 Fluticasone Propionate (Flonase) 2 spray DAILY NS 09/03/20 09:00 10/04/20 10:08 Magnesium Chloride (Mag Delay) 64 mg DAILY PO 09/03/20 09:00 10/04/20 10:06 Non-Formulary Medication (Magnesium Hydroxide (Milk Of Magnesia)) 2,400 mg PRN QHS PRN PO CONSTIPATION 09/02/20 16:15 09/02/20 16:32 DC Metformin HCl (Glucophage) 1,000 mg DAILYWBKFT PO 09/03/20 08:00 10/04/20 09:59 Multivitamins/ Calcium (Thera-M Plus) 1 tab DAILY PO 09/03/20 09:00 10/04/20 10:06 Oxybutynin Chloride (Ditropan) 5 mg QHS PO 09/02/20 21:00 10/04/20 21:09 Guaifenesin (Robitussin) 100 mg PRN Q2HRS PRN PO COUGH 09/02/20 16:30 Hydrocortisone Acetate (Anucort-Hc) 25 mg PRN DAILY PRN RC RECTAL PAIN 09/02/20 16:30 Haloperidol (Haldol) 0.5 mg DAILY PO 09/08/20 09:00 09/16/20 18:34 DC 09/16/20 08:49 Valproic Acid (Depakene) 750 mg BID PO 09/08/20 21:00 10/04/20 21:08 Haloperidol (Haldol) 0.5 mg HS PO 09/17/20 21:00 09/19/20 14:00 DC 09/18/20 20:10 Mirtazapine (Remeron) 7.5 mg QHS PO 09/18/20 21:00 09/22/20 17:31 DC 09/21/20 20:33 Risperidone (RisperDAL) 1 mg 1X ONCE PO 09/19/20 14:00 09/19/20 14:06 DC 09/19/20 14:44 Risperidone (RisperDAL) 1.5 mg DAILY PO 09/20/20 09:00 09/26/20 18:01 DC 09/26/20 09:31 Mirtazapine (Remeron) 15 mg QHS PO 09/22/20 21:00 10/04/20 21:08 Risperidone (RisperDAL) 2 mg DAILY PO 09/27/20 09:00 10/04/20 09:58 I have reviewed the current psychotropics carefully including drug interactions. Risk benefit ratio favors no change other than as noted in my dictated progress note. Diagnosis: Problems: (1) Impulse control disorder, unspecified (2) Anxiety disorder, unspecified (3) Bipolar disorder, curr episode mixed, severe, with psychotic features JABARI ARBOLEDA MD October 05, 2020 07:31
--- NOTE | 2020-10-05 08:00 | PDOC ---
Exam Note: [facility] Note: This note is a late entry for 10/03/2020 covers elements not covered in my initial note. Subjective: The patient was reviewed in the morning of 10/03/2020 for a treatment team meeting with Karlee Perdue, Melvi Teague and Mary (certified social workers in health care), Candice, activity therapy and Juliet RN, discussed and reviewed the chart. She slept 7 hours previous night. The patient has not been urinating in beds on the unit. Discussed the patients diagnoses, progress. She is overall less impulsive, has attended 6 group therapy sessions. Review of Systems: Ambulation impaired with walker. No CV, , pulmonary, eye, ENT system symptoms on review. Mental Status Exam: The patient is oriented to herself. Speech coherent. I met with her individually at length and discussed some of her irritability, mood lability, per nursing report and ways to change this. Abstraction is fair. Computation impaired. Language function is intact. Attention span is short. Mood and affect is withdrawn. No clear psychotic symptoms, suicidal or homicidal ideation. Laboratory Data: Reviewed. Impression: Bipolar disorder mixed with psychotic features in partial remission. Anxiety disorder unspecified. Impulse control disorder unspecified. Plan: No change from initial note. Assessment: Vital Signs/I&O: Vital Signs Date Time Temp Pulse Resp B/P (MAP) Pulse Ox O2 Delivery O2 Flow Rate FiO2 10/05/20 06:24 97.5 51 15 147/75 (99) 94 10/04/20 15:48 Room Air I & O 10/04/20 10/04/20 10/05/20 15:00 23:00 07:00 Intake Total 480 ml 360 ml Balance 480 ml 360 ml Current Medications: Meds: Current Medications Medications (Trade) Dose Ordered Sig/Annika Route PRN Reason Start Time Stop Time Status Last Admin Dose Admin Acetaminophen (Tylenol) 650 mg PRN Q6HRS PRN PO MILD PAIN / TEMP > 100.3'F 09/02/20 15:00 09/02/20 16:17 DC Multi-Ingredient Ointment (Analgesic [place]) 1 hui PRN QID PRN TP MUSCLE PAIN 09/02/20 15:00 Al Hydroxide/Mg Hydroxide (Mylanta Plus Xs) 15 ml PRN AFTMEALHC PRN PO DYSPEPSIA 09/02/20 15:00 09/02/20 16:28 DC Magnesium Hydroxide (Milk Of Magnesia) 2,400 mg PRN QHS PRN PO CONSTIPATION 09/02/20 15:00 Acetaminophen (Tylenol) 650 mg PRN Q4HRS PRN PO MILD PAIN / TEMP > 100.3'F 09/02/20 16:15 Albuterol Sulfate (Ventolin Hfa Inhaler) 2 puff BID INH 09/02/20 21:00 10/04/20 21:07 Amlodipine Besylate (Norvasc) 10 mg DAILY PO 09/03/20 09:00 10/04/20 09:58 Atenolol (Tenormin) 50 mg DAILY PO 09/03/20 09:00 10/04/20 09:59 Bupropion HCl (Wellbutrin Xl) 300 mg DAILY PO 09/03/20 09:00 10/04/20 09:58 Divalproex Sodium (Depakote Er) 1,500 mg QHS PO 09/02/20 21:00 09/08/20 20:12 DC 09/07/20 19:41 Docusate Sodium (Colace) 100 mg DAILY PO 09/03/20 09:00 10/04/20 10:06 Donepezil HCl (Aricept) 10 mg HS PO 09/02/20 21:00 10/04/20 21:09 Ferrous Sulfate (Feosol) 325 mg DAILY PO 09/03/20 09:00 10/04/20 10:06 Furosemide (Lasix) 40 mg DAILY PO 09/03/20 09:00 10/04/20 09:59 Guaifenesin (Mucinex Er) 1,200 mg BID PO 09/02/20 21:00 10/04/20 21:08 Hydralazine HCl (Apresoline) 25 mg TID PO 09/02/20 21:00 10/04/20 21:09 Levothyroxine Sodium (Synthroid) 125 mcg DAILY06 PO 09/03/20 06:00 10/05/20 05:52 Al Hydroxide/Mg Hydroxide (Mylanta Plus Xs) 30 ml PRN Q2HRS PRN PO DYSPEPSIA 09/02/20 16:15 Multi-Ingredient Ointment (Analgesic [place]) 1 hui PRN QID PRN TP MUSCLE PAIN 09/02/20 16:15 09/02/20 16:29 DC Montelukast Sodium (Singulair) 10 mg HS PO 09/02/20 21:00 10/04/20 21:08 Olanzapine (ZyPREXA ZYDIS) 2.5 mg PRN Q2HRS PRN PO psychosis/agitation 09/02/20 16:15 09/02/20 16:20 DC Pantoprazole Sodium (Protonix) 40 mg HS PO 09/02/20 21:00 10/04/20 21:08 Polyethylene Glycol (miraLAX) 17 gm DAILY PO 09/03/20 09:00 10/04/20 10:05 Artificial Tears (Artificial Tears) 2 drop BID OU 09/02/20 21:00 10/04/20 10:07 Risperidone (RisperDAL) 0.25 mg QHS PO 09/02/20 21:00 09/07/20 16:47 DC 09/06/20 20:54 Risperidone (RisperDAL) 1 mg QHS PO 09/02/20 21:00 09/07/20 16:47 DC 09/06/20 20:55 Trazodone HCl (Desyrel) 50 mg HS PO 09/02/20 21:00 10/04/20 21:09 Trazodone HCl (Desyrel) 50 mg PRN QHS PRN PO insomnia 09/02/20 16:15 Calcium/Vitamin D (Oscal D 500mg/ 200uts) 1 tab DAILY PO 09/03/20 09:00 10/04/20 10:06 Fluticasone Propionate (Flonase) 2 spray DAILY NS 09/03/20 09:00 10/04/20 10:08 Magnesium Chloride (Mag Delay) 64 mg DAILY PO 09/03/20 09:00 10/04/20 10:06 Non-Formulary Medication (Magnesium Hydroxide (Milk Of Magnesia)) 2,400 mg PRN QHS PRN PO CONSTIPATION 09/02/20 16:15 09/02/20 16:32 DC Metformin HCl (Glucophage) 1,000 mg DAILYWBKFT PO 09/03/20 08:00 10/04/20 09:59 Multivitamins/ Calcium (Thera-M Plus) 1 tab DAILY PO 09/03/20 09:00 10/04/20 10:06 Oxybutynin Chloride (Ditropan) 5 mg QHS PO 09/02/20 21:00 10/04/20 21:09 Guaifenesin (Robitussin) 100 mg PRN Q2HRS PRN PO COUGH 09/02/20 16:30 Hydrocortisone Acetate (Anucort-Hc) 25 mg PRN DAILY PRN RC RECTAL PAIN 09/02/20 16:30 Haloperidol (Haldol) 0.5 mg DAILY PO 09/08/20 09:00 09/16/20 18:34 DC 09/16/20 08:49 Valproic Acid (Depakene) 750 mg BID PO 09/08/20 21:00 10/04/20 21:08 Haloperidol (Haldol) 0.5 mg HS PO 09/17/20 21:00 09/19/20 14:00 DC 09/18/20 20:10 Mirtazapine (Remeron) 7.5 mg QHS PO 09/18/20 21:00 09/22/20 17:31 DC 09/21/20 20:33 Risperidone (RisperDAL) 1 mg 1X ONCE PO 09/19/20 14:00 09/19/20 14:06 DC 09/19/20 14:44 Risperidone (RisperDAL) 1.5 mg DAILY PO 09/20/20 09:00 09/26/20 18:01 DC 09/26/20 09:31 Mirtazapine (Remeron) 15 mg QHS PO 09/22/20 21:00 10/04/20 21:08 Risperidone (RisperDAL) 2 mg DAILY PO 09/27/20 09:00 10/04/20 09:58 I have reviewed the current psychotropics carefully including drug interactions. Risk benefit ratio favors no change other than as noted in my dictated progress note. Diagnosis: Problems: (1) Impulse control disorder, unspecified (2) Anxiety disorder, unspecified (3) Bipolar disorder, curr episode mixed, severe, with psychotic features JABARI ARBOLEDA MD October 05, 2020 07:59
[2020-10-05] MEDS: buPROPion XL 300 MG TAB.ER.24H. PO SCH (08:30)
[2020-10-05] MEDS: amLODIPine BESYLATE 10 MG TABLET PO SCH (08:30)
[2020-10-05] MEDS: FERROUS SULFATE 325 MG TABLET. PO SCH (08:30)
[2020-10-05] MEDS: CALCIUM CARB/VIT D3 500/200 TABLET PO SCH (08:30)
[2020-10-05] MEDS: risperiDONE 2 MG TABLET. PO SCH (08:31)
[2020-10-05] MEDS: metFORMIN 500 MG TABLET PO SCH (08:31)
[2020-10-05] MEDS: MULTIVITAMIN with MINERAL TABLET. PO SCH (08:31)
[2020-10-05] MEDS: DOCUSATE SODIUM 100 MG CAPSULE PO SCH (08:31)
[2020-10-05] MEDS: MAGNESIUM CHLORIDE ER 64 MG TABLET.ER PO SCH (08:31)
[2020-10-05] MEDS: hydrALAZINE 25 MG TABLET PO SCH ×3 (08:32→21:23)
[2020-10-05] MEDS: FUROSEMIDE 40 MG TABLET PO SCH (08:32)
[2020-10-05] MEDS: VALPROATE ACID 250 MG/5 ML ORAL SOLUTION PO SCH (08:32)
[2020-10-05] MEDS: FLUTICASONE 50MCG/NASAL SPRAY 16GM BOTTLE. NS SCH (08:32)
[2020-10-05] MEDS: ATENOLOL 50 MG TABLET PO SCH (08:32)
[2020-10-05] MEDS: ALBUTEROL SULFATE 8GM INHALER. INH SCH ×2 (08:33→21:22)
[2020-10-05] MEDS: POLYETHYLENE GLYCOL 3350 17 GM PACKET. PO SCH (08:33)
[2020-10-05 15:45] VITALS: BP 117/79
[2020-10-05] MEDS: DONEPEZIL HCL 10 MG TABLET PO SCH (21:23)
[2020-10-05] MEDS: MONTELUKAST 10 MG TABLET. PO SCH (21:23)
[2020-10-05] MEDS: PANTOPRAZOLE 40 MG TABLET. PO SCH (21:23)
[2020-10-05] MEDS: OXYBUTYNIN CHLORIDE 5 MG TABLET PO SCH (21:23)
[2020-10-05] MEDS: traZODone 50 MG TABLET. PO SCH (21:23)
[2020-10-05] MEDS: MIRTAZAPINE 7.5 MG TABLET. PO SCH (21:23)
[2020-10-05] MEDS: POLYVINYL ALCOHOL 1.4% OPHTH SOLUTION 15ML BOTTLE. OU SCH (21:24)
[2020-10-05] MEDS: DIVALPROEX 125 MG CAP.SPRINK PO SCH (21:24)
--- NOTE | 2020-10-05 21:48 | PDOC ---
Exam Note: [facility] Note: Please also refer to the separate dictated note~for this date of service dictated separately.~Patient seen individually. Discussed the patient with Nursing staff reviewed the chart.~Reviewed interim history and current functioning. Reviewed vital signs,~Labs/ Radiology~and current medications noted below. Continue current treatment with the changes noted in the dictated addendum note Assessment: Vital Signs/I&O: Vital Signs Date Time Temp Pulse Resp B/P (MAP) Pulse Ox O2 Delivery O2 Flow Rate FiO2 10/05/20 21:23 61 117/79 10/05/20 15:45 96.9 20 96 Room Air I & O 10/04/20 10/04/20 10/05/20 14:59 22:59 06:59 Intake Total 480 ml 360 ml Balance 480 ml 360 ml Current Medications: Meds: Current Medications Medications (Trade) Dose Ordered Sig/Annika Route PRN Reason Start Time Stop Time Status Last Admin Dose Admin Acetaminophen (Tylenol) 650 mg PRN Q6HRS PRN PO MILD PAIN / TEMP > 100.3'F 09/02/20 15:00 09/02/20 16:17 DC Multi-Ingredient Ointment (Analgesic [place]) 1 hui PRN QID PRN TP MUSCLE PAIN 09/02/20 15:00 Al Hydroxide/Mg Hydroxide (Mylanta Plus Xs) 15 ml PRN AFTMEALHC PRN PO DYSPEPSIA 09/02/20 15:00 09/02/20 16:28 DC Magnesium Hydroxide (Milk Of Magnesia) 2,400 mg PRN QHS PRN PO CONSTIPATION 09/02/20 15:00 Acetaminophen (Tylenol) 650 mg PRN Q4HRS PRN PO MILD PAIN / TEMP > 100.3'F 09/02/20 16:15 Albuterol Sulfate (Ventolin Hfa Inhaler) 2 puff BID INH 09/02/20 21:00 10/05/20 21:22 Amlodipine Besylate (Norvasc) 10 mg DAILY PO 09/03/20 09:00 10/05/20 08:30 Atenolol (Tenormin) 50 mg DAILY PO 09/03/20 09:00 10/05/20 08:32 Bupropion HCl (Wellbutrin Xl) 300 mg DAILY PO 09/03/20 09:00 10/05/20 08:30 Divalproex Sodium (Depakote Er) 1,500 mg QHS PO 09/02/20 21:00 09/08/20 20:12 DC 09/07/20 19:41 Docusate Sodium (Colace) 100 mg DAILY PO 09/03/20 09:00 10/05/20 08:31 Donepezil HCl (Aricept) 10 mg HS PO 09/02/20 21:00 10/05/20 21:23 Ferrous Sulfate (Feosol) 325 mg DAILY PO 09/03/20 09:00 10/05/20 08:30 Furosemide (Lasix) 40 mg DAILY PO 09/03/20 09:00 10/05/20 08:32 Guaifenesin (Mucinex Er) 1,200 mg BID PO 09/02/20 21:00 10/05/20 21:23 Hydralazine HCl (Apresoline) 25 mg TID PO 09/02/20 21:00 10/05/20 21:23 Levothyroxine Sodium (Synthroid) 125 mcg DAILY06 PO 09/03/20 06:00 10/05/20 05:52 Al Hydroxide/Mg Hydroxide (Mylanta Plus Xs) 30 ml PRN Q2HRS PRN PO DYSPEPSIA 09/02/20 16:15 Multi-Ingredient Ointment (Analgesic [place]) 1 hui PRN QID PRN TP MUSCLE PAIN 09/02/20 16:15 09/02/20 16:29 DC Montelukast Sodium (Singulair) 10 mg HS PO 09/02/20 21:00 10/05/20 21:23 Olanzapine (ZyPREXA ZYDIS) 2.5 mg PRN Q2HRS PRN PO psychosis/agitation 09/02/20 16:15 09/02/20 16:20 DC Pantoprazole Sodium (Protonix) 40 mg HS PO 09/02/20 21:00 10/05/20 21:23 Polyethylene Glycol (miraLAX) 17 gm DAILY PO 09/03/20 09:00 10/05/20 08:33 Artificial Tears (Artificial Tears) 2 drop BID OU 09/02/20 21:00 10/05/20 21:24 Risperidone (RisperDAL) 0.25 mg QHS PO 09/02/20 21:00 09/07/20 16:47 DC 09/06/20 20:54 Risperidone (RisperDAL) 1 mg QHS PO 09/02/20 21:00 09/07/20 16:47 DC 09/06/20 20:55 Trazodone HCl (Desyrel) 50 mg HS PO 09/02/20 21:00 10/05/20 21:23 Trazodone HCl (Desyrel) 50 mg PRN QHS PRN PO insomnia 09/02/20 16:15 Calcium/Vitamin D (Oscal D 500mg/ 200uts) 1 tab DAILY PO 09/03/20 09:00 10/05/20 08:30 Fluticasone Propionate (Flonase) 2 spray DAILY NS 09/03/20 09:00 10/05/20 08:32 Magnesium Chloride (Mag Delay) 64 mg DAILY PO 09/03/20 09:00 10/05/20 08:31 Non-Formulary Medication (Magnesium Hydroxide (Milk Of Magnesia)) 2,400 mg PRN QHS PRN PO CONSTIPATION 09/02/20 16:15 09/02/20 16:32 DC Metformin HCl (Glucophage) 1,000 mg DAILYWBKFT PO 09/03/20 08:00 10/05/20 08:31 Multivitamins/ Calcium (Thera-M Plus) 1 tab DAILY PO 09/03/20 09:00 10/05/20 08:31 Oxybutynin Chloride (Ditropan) 5 mg QHS PO 09/02/20 21:00 10/05/20 21:23 Guaifenesin (Robitussin) 100 mg PRN Q2HRS PRN PO COUGH 09/02/20 16:30 Hydrocortisone Acetate (Anucort-Hc) 25 mg PRN DAILY PRN RC RECTAL PAIN 09/02/20 16:30 Haloperidol (Haldol) 0.5 mg DAILY PO 09/08/20 09:00 09/16/20 18:34 DC 09/16/20 08:49 Valproic Acid (Depakene) 750 mg BID PO 09/08/20 21:00 10/05/20 15:40 DC 10/05/20 08:32 Haloperidol (Haldol) 0.5 mg HS PO 09/17/20 21:00 09/19/20 14:00 DC 09/18/20 20:10 Mirtazapine (Remeron) 7.5 mg QHS PO 09/18/20 21:00 09/22/20 17:31 DC 09/21/20 20:33 Risperidone (RisperDAL) 1 mg 1X ONCE PO 09/19/20 14:00 09/19/20 14:06 DC 09/19/20 14:44 Risperidone (RisperDAL) 1.5 mg DAILY PO 09/20/20 09:00 09/26/20 18:01 DC 09/26/20 09:31 Mirtazapine (Remeron) 15 mg QHS PO 09/22/20 21:00 10/05/20 21:23 Risperidone (RisperDAL) 2 mg DAILY PO 09/27/20 09:00 10/05/20 08:31 Divalproex Sodium (Depakote Sprinkles) 750 mg BID PO 10/05/20 21:00 10/05/20 21:24 Current Medications Medications (Trade) Dose Ordered Sig/Annika Route PRN Reason Start Time Stop Time Status Last Admin Dose Admin Divalproex Sodium (Depakote Sprinkles) 750 mg BID PO 10/05/20 21:00 10/05/20 21:24 I have reviewed the current psychotropics carefully including drug interactions. Risk benefit ratio favors no change other than as noted in my dictated progress note. Diagnosis: Problems: (1) Impulse control disorder, unspecified (2) Anxiety disorder, unspecified (3) Bipolar disorder, curr episode mixed, severe, with psychotic features JABARI ARBOLEDA MD October 05, 2020 21:48
[2020-10-06 06:08] VITALS: BP 162/68
[2020-10-06] MEDS: LEVOTHYROXINE 125 MCG TABLET PO SCH (06:16)
[2020-10-06] MEDS: ALBUTEROL SULFATE 8GM INHALER. INH SCH ×2 (08:25→19:39)
[2020-10-06] MEDS: POLYETHYLENE GLYCOL 3350 17 GM PACKET. PO SCH (08:26)
[2020-10-06] MEDS: FLUTICASONE 50MCG/NASAL SPRAY 16GM BOTTLE. NS SCH (08:26)
[2020-10-06] MEDS: POLYVINYL ALCOHOL 1.4% OPHTH SOLUTION 15ML BOTTLE. OU SCH ×2 (08:26→19:39)
[2020-10-06] MEDS: DIVALPROEX 125 MG CAP.SPRINK PO SCH ×2 (08:27→19:38)
[2020-10-06] MEDS: buPROPion XL 300 MG TAB.ER.24H. PO SCH (08:27)
[2020-10-06] MEDS: MAGNESIUM CHLORIDE ER 64 MG TABLET.ER PO SCH (08:27)
[2020-10-06] MEDS: CALCIUM CARB/VIT D3 500/200 TABLET PO SCH (08:27)
[2020-10-06] MEDS: FUROSEMIDE 40 MG TABLET PO SCH (08:27)
[2020-10-06] MEDS: DOCUSATE SODIUM 100 MG CAPSULE PO SCH (08:27)
[2020-10-06] MEDS: FERROUS SULFATE 325 MG TABLET. PO SCH (08:27)
[2020-10-06] MEDS: hydrALAZINE 25 MG TABLET PO SCH ×3 (08:28→19:38)
[2020-10-06] MEDS: ATENOLOL 50 MG TABLET PO SCH (08:28)
[2020-10-06] MEDS: metFORMIN 500 MG TABLET PO SCH (08:28)
[2020-10-06] MEDS: risperiDONE 2 MG TABLET. PO SCH (08:28)
[2020-10-06] MEDS: MULTIVITAMIN with MINERAL TABLET. PO SCH (08:28)
[2020-10-06] MEDS: amLODIPine BESYLATE 10 MG TABLET PO SCH (08:29)
[2020-10-06 16:10] VITALS: BP 153/85
[2020-10-06] MEDS: OXYBUTYNIN CHLORIDE 5 MG TABLET PO SCH (19:36)
[2020-10-06] MEDS: PANTOPRAZOLE 40 MG TABLET. PO SCH (19:37)
[2020-10-06] MEDS: traZODone 50 MG TABLET. PO SCH (19:38)
[2020-10-06] MEDS: DONEPEZIL HCL 10 MG TABLET PO SCH (19:38)
[2020-10-06] MEDS: MIRTAZAPINE 7.5 MG TABLET. PO SCH (19:38)
[2020-10-06] MEDS: MONTELUKAST 10 MG TABLET. PO SCH (19:38)
--- NOTE | 2020-10-06 21:51 | PDOC ---
Exam Note: [facility] Note: Please also refer to the separate dictated note~for this date of service dictated separately.~Patient seen individually. Discussed the patient with Nursing staff reviewed the chart.~Reviewed interim history and current functioning. Reviewed vital signs,~Labs/ Radiology~and current medications noted below. Continue current treatment with the changes noted in the dictated addendum note Assessment: Vital Signs/I&O: Vital Signs Date Time Temp Pulse Resp B/P (MAP) Pulse Ox O2 Delivery O2 Flow Rate FiO2 10/06/20 19:38 64 153/85 10/06/20 16:10 98.0 18 92 10/06/20 06:08 Room Air I & O 10/05/20 10/05/20 10/06/20 15:00 23:00 07:00 Intake Total 600 ml 480 ml Balance 600 ml 480 ml Current Medications: Meds: Current Medications Medications (Trade) Dose Ordered Sig/Annika Route PRN Reason Start Time Stop Time Status Last Admin Dose Admin Acetaminophen (Tylenol) 650 mg PRN Q6HRS PRN PO MILD PAIN / TEMP > 100.3'F 09/02/20 15:00 09/02/20 16:17 DC Multi-Ingredient Ointment (Analgesic [place]) 1 hui PRN QID PRN TP MUSCLE PAIN 09/02/20 15:00 Al Hydroxide/Mg Hydroxide (Mylanta Plus Xs) 15 ml PRN AFTMEALHC PRN PO DYSPEPSIA 09/02/20 15:00 09/02/20 16:28 DC Magnesium Hydroxide (Milk Of Magnesia) 2,400 mg PRN QHS PRN PO CONSTIPATION 09/02/20 15:00 Acetaminophen (Tylenol) 650 mg PRN Q4HRS PRN PO MILD PAIN / TEMP > 100.3'F 09/02/20 16:15 Albuterol Sulfate (Ventolin Hfa Inhaler) 2 puff BID INH 09/02/20 21:00 10/06/20 19:39 Amlodipine Besylate (Norvasc) 10 mg DAILY PO 09/03/20 09:00 10/06/20 08:29 Atenolol (Tenormin) 50 mg DAILY PO 09/03/20 09:00 10/06/20 08:28 Bupropion HCl (Wellbutrin Xl) 300 mg DAILY PO 09/03/20 09:00 10/06/20 08:27 Divalproex Sodium (Depakote Er) 1,500 mg QHS PO 09/02/20 21:00 09/08/20 20:12 DC 09/07/20 19:41 Docusate Sodium (Colace) 100 mg DAILY PO 09/03/20 09:00 10/06/20 08:27 Donepezil HCl (Aricept) 10 mg HS PO 09/02/20 21:00 10/06/20 19:38 Ferrous Sulfate (Feosol) 325 mg DAILY PO 09/03/20 09:00 10/06/20 08:27 Furosemide (Lasix) 40 mg DAILY PO 09/03/20 09:00 10/06/20 08:27 Guaifenesin (Mucinex Er) 1,200 mg BID PO 09/02/20 21:00 10/06/20 19:37 Hydralazine HCl (Apresoline) 25 mg TID PO 09/02/20 21:00 10/06/20 19:38 Levothyroxine Sodium (Synthroid) 125 mcg DAILY06 PO 09/03/20 06:00 10/06/20 06:16 Al Hydroxide/Mg Hydroxide (Mylanta Plus Xs) 30 ml PRN Q2HRS PRN PO DYSPEPSIA 09/02/20 16:15 Multi-Ingredient Ointment (Analgesic [place]) 1 hui PRN QID PRN TP MUSCLE PAIN 09/02/20 16:15 09/02/20 16:29 DC Montelukast Sodium (Singulair) 10 mg HS PO 09/02/20 21:00 10/06/20 19:38 Olanzapine (ZyPREXA ZYDIS) 2.5 mg PRN Q2HRS PRN PO psychosis/agitation 09/02/20 16:15 09/02/20 16:20 DC Pantoprazole Sodium (Protonix) 40 mg HS PO 09/02/20 21:00 10/06/20 19:37 Polyethylene Glycol (miraLAX) 17 gm DAILY PO 09/03/20 09:00 10/06/20 08:26 Artificial Tears (Artificial Tears) 2 drop BID OU 09/02/20 21:00 10/06/20 19:39 Risperidone (RisperDAL) 0.25 mg QHS PO 09/02/20 21:00 09/07/20 16:47 DC 09/06/20 20:54 Risperidone (RisperDAL) 1 mg QHS PO 09/02/20 21:00 09/07/20 16:47 DC 09/06/20 20:55 Trazodone HCl (Desyrel) 50 mg HS PO 09/02/20 21:00 10/06/20 19:38 Trazodone HCl (Desyrel) 50 mg PRN QHS PRN PO insomnia 09/02/20 16:15 Calcium/Vitamin D (Oscal D 500mg/ 200uts) 1 tab DAILY PO 09/03/20 09:00 10/06/20 08:27 Fluticasone Propionate (Flonase) 2 spray DAILY NS 09/03/20 09:00 10/06/20 08:26 Magnesium Chloride (Mag Delay) 64 mg DAILY PO 09/03/20 09:00 10/06/20 08:27 Non-Formulary Medication (Magnesium Hydroxide (Milk Of Magnesia)) 2,400 mg PRN QHS PRN PO CONSTIPATION 09/02/20 16:15 09/02/20 16:32 DC Metformin HCl (Glucophage) 1,000 mg DAILYWBKFT PO 09/03/20 08:00 10/06/20 08:28 Multivitamins/ Calcium (Thera-M Plus) 1 tab DAILY PO 09/03/20 09:00 10/06/20 08:28 Oxybutynin Chloride (Ditropan) 5 mg QHS PO 09/02/20 21:00 10/06/20 19:36 Guaifenesin (Robitussin) 100 mg PRN Q2HRS PRN PO COUGH 09/02/20 16:30 Hydrocortisone Acetate (Anucort-Hc) 25 mg PRN DAILY PRN RC RECTAL PAIN 09/02/20 16:30 Haloperidol (Haldol) 0.5 mg DAILY PO 09/08/20 09:00 09/16/20 18:34 DC 09/16/20 08:49 Valproic Acid (Depakene) 750 mg BID PO 09/08/20 21:00 10/05/20 15:40 DC 10/05/20 08:32 Haloperidol (Haldol) 0.5 mg HS PO 09/17/20 21:00 09/19/20 14:00 DC 09/18/20 20:10 Mirtazapine (Remeron) 7.5 mg QHS PO 09/18/20 21:00 09/22/20 17:31 DC 09/21/20 20:33 Risperidone (RisperDAL) 1 mg 1X ONCE PO 09/19/20 14:00 09/19/20 14:06 DC 09/19/20 14:44 Risperidone (RisperDAL) 1.5 mg DAILY PO 09/20/20 09:00 09/26/20 18:01 DC 09/26/20 09:31 Mirtazapine (Remeron) 15 mg QHS PO 09/22/20 21:00 10/06/20 19:38 Risperidone (RisperDAL) 2 mg DAILY PO 09/27/20 09:00 10/06/20 08:28 Divalproex Sodium (Depakote Sprinkles) 750 mg BID PO 10/05/20 21:00 10/06/20 19:38 I have reviewed the current psychotropics carefully including drug interactions. Risk benefit ratio favors no change other than as noted in my dictated progress note. Diagnosis: Problems: (1) Impulse control disorder, unspecified (2) Anxiety disorder, unspecified (3) Bipolar disorder, curr episode mixed, severe, with psychotic features JABARI ARBOLEDA MD October 06, 2020 21:51
[2020-10-07] MEDS: LEVOTHYROXINE 125 MCG TABLET PO SCH (05:41)
[2020-10-07 05:55] VITALS: BP 165/91
--- NOTE | 2020-10-07 06:39 | PDOC ---
Exam Note: [facility] Note: This note is a late entry for 10/04/2020 covers elements not covered in my initial note. Subjective: The patient was seen individually in the evening of 10/04/2020 with Juliet BOND, discussed and reviewed the chart. She slept 7-3/4 hours previous night. Previous night the patient was resistive to medications. She refused to answer orientation questions. She remains withdrawn but no behaviors noted. No urination in her bed or in the bed of other patients as before. I met with her at some length in her room. Review of Systems: Ambulation impaired with walker. No CV, , pulmonary, eye, ENT system symptoms on review. Mental Status Exam: The patient is oriented to herself. Speech coherent. Abstraction is fair. Computation impaired. Language function is intact. Attention span is short. Mood and affect is withdrawn. No clear psychotic symptoms, suicidal or homicidal ideation. Laboratory Data: Reviewed. Impression: Bipolar disorder mixed with psychotic features in partial remission. Anxiety disorder unspecified. Impulse control disorder unspecified. Plan: No change from initial note. Assessment: Vital Signs/I&O: Vital Signs Date Time Temp Pulse Resp B/P (MAP) Pulse Ox O2 Delivery O2 Flow Rate FiO2 10/07/20 05:55 97.3 52 18 165/91 (115) 95 10/06/20 06:08 Room Air I & O 10/06/20 10/06/20 10/07/20 15:00 23:00 07:00 Intake Total 840 ml 600 ml Balance 840 ml 600 ml Current Medications: Meds: Current Medications Medications (Trade) Dose Ordered Sig/Annika Route PRN Reason Start Time Stop Time Status Last Admin Dose Admin Acetaminophen (Tylenol) 650 mg PRN Q6HRS PRN PO MILD PAIN / TEMP > 100.3'F 09/02/20 15:00 09/02/20 16:17 DC Multi-Ingredient Ointment (Analgesic [place]) 1 hui PRN QID PRN TP MUSCLE PAIN 09/02/20 15:00 Al Hydroxide/Mg Hydroxide (Mylanta Plus Xs) 15 ml PRN AFTMEALHC PRN PO DYSPEPSIA 09/02/20 15:00 09/02/20 16:28 DC Magnesium Hydroxide (Milk Of Magnesia) 2,400 mg PRN QHS PRN PO CONSTIPATION 09/02/20 15:00 Acetaminophen (Tylenol) 650 mg PRN Q4HRS PRN PO MILD PAIN / TEMP > 100.3'F 09/02/20 16:15 Albuterol Sulfate (Ventolin Hfa Inhaler) 2 puff BID INH 09/02/20 21:00 10/06/20 19:39 Amlodipine Besylate (Norvasc) 10 mg DAILY PO 09/03/20 09:00 10/06/20 08:29 Atenolol (Tenormin) 50 mg DAILY PO 09/03/20 09:00 10/06/20 08:28 Bupropion HCl (Wellbutrin Xl) 300 mg DAILY PO 09/03/20 09:00 10/06/20 08:27 Divalproex Sodium (Depakote Er) 1,500 mg QHS PO 09/02/20 21:00 09/08/20 20:12 DC 09/07/20 19:41 Docusate Sodium (Colace) 100 mg DAILY PO 09/03/20 09:00 10/06/20 08:27 Donepezil HCl (Aricept) 10 mg HS PO 09/02/20 21:00 10/06/20 19:38 Ferrous Sulfate (Feosol) 325 mg DAILY PO 09/03/20 09:00 10/06/20 08:27 Furosemide (Lasix) 40 mg DAILY PO 09/03/20 09:00 10/06/20 08:27 Guaifenesin (Mucinex Er) 1,200 mg BID PO 09/02/20 21:00 10/06/20 19:37 Hydralazine HCl (Apresoline) 25 mg TID PO 09/02/20 21:00 10/06/20 19:38 Levothyroxine Sodium (Synthroid) 125 mcg DAILY06 PO 09/03/20 06:00 10/07/20 05:41 Al Hydroxide/Mg Hydroxide (Mylanta Plus Xs) 30 ml PRN Q2HRS PRN PO DYSPEPSIA 09/02/20 16:15 Multi-Ingredient Ointment (Analgesic [place]) 1 hui PRN QID PRN TP MUSCLE PAIN 09/02/20 16:15 09/02/20 16:29 DC Montelukast Sodium (Singulair) 10 mg HS PO 09/02/20 21:00 10/06/20 19:38 Olanzapine (ZyPREXA ZYDIS) 2.5 mg PRN Q2HRS PRN PO psychosis/agitation 09/02/20 16:15 09/02/20 16:20 DC Pantoprazole Sodium (Protonix) 40 mg HS PO 09/02/20 21:00 10/06/20 19:37 Polyethylene Glycol (miraLAX) 17 gm DAILY PO 09/03/20 09:00 10/06/20 08:26 Artificial Tears (Artificial Tears) 2 drop BID OU 09/02/20 21:00 10/06/20 19:39 Risperidone (RisperDAL) 0.25 mg QHS PO 09/02/20 21:00 09/07/20 16:47 DC 09/06/20 20:54 Risperidone (RisperDAL) 1 mg QHS PO 09/02/20 21:00 09/07/20 16:47 DC 09/06/20 20:55 Trazodone HCl (Desyrel) 50 mg HS PO 09/02/20 21:00 10/06/20 19:38 Trazodone HCl (Desyrel) 50 mg PRN QHS PRN PO insomnia 09/02/20 16:15 Calcium/Vitamin D (Oscal D 500mg/ 200uts) 1 tab DAILY PO 09/03/20 09:00 10/06/20 08:27 Fluticasone Propionate (Flonase) 2 spray DAILY NS 09/03/20 09:00 10/06/20 08:26 Magnesium Chloride (Mag Delay) 64 mg DAILY PO 09/03/20 09:00 10/06/20 08:27 Non-Formulary Medication (Magnesium Hydroxide (Milk Of Magnesia)) 2,400 mg PRN QHS PRN PO CONSTIPATION 09/02/20 16:15 09/02/20 16:32 DC Metformin HCl (Glucophage) 1,000 mg DAILYWBKFT PO 09/03/20 08:00 10/06/20 08:28 Multivitamins/ Calcium (Thera-M Plus) 1 tab DAILY PO 09/03/20 09:00 10/06/20 08:28 Oxybutynin Chloride (Ditropan) 5 mg QHS PO 09/02/20 21:00 10/06/20 19:36 Guaifenesin (Robitussin) 100 mg PRN Q2HRS PRN PO COUGH 09/02/20 16:30 Hydrocortisone Acetate (Anucort-Hc) 25 mg PRN DAILY PRN RC RECTAL PAIN 09/02/20 16:30 Haloperidol (Haldol) 0.5 mg DAILY PO 09/08/20 09:00 09/16/20 18:34 DC 09/16/20 08:49 Valproic Acid (Depakene) 750 mg BID PO 09/08/20 21:00 10/05/20 15:40 DC 10/05/20 08:32 Haloperidol (Haldol) 0.5 mg HS PO 09/17/20 21:00 09/19/20 14:00 DC 09/18/20 20:10 Mirtazapine (Remeron) 7.5 mg QHS PO 09/18/20 21:00 09/22/20 17:31 DC 09/21/20 20:33 Risperidone (RisperDAL) 1 mg 1X ONCE PO 09/19/20 14:00 09/19/20 14:06 DC 09/19/20 14:44 Risperidone (RisperDAL) 1.5 mg DAILY PO 09/20/20 09:00 09/26/20 18:01 DC 09/26/20 09:31 Mirtazapine (Remeron) 15 mg QHS PO 09/22/20 21:00 10/06/20 19:38 Risperidone (RisperDAL) 2 mg DAILY PO 09/27/20 09:00 10/06/20 08:28 Divalproex Sodium (Depakote Sprinkles) 750 mg BID PO 10/05/20 21:00 10/06/20 19:38 I have reviewed the current psychotropics carefully including drug interactions. Risk benefit ratio favors no change other than as noted in my dictated progress note. Diagnosis: Problems: (1) Impulse control disorder, unspecified (2) Anxiety disorder, unspecified (3) Bipolar disorder, curr episode mixed, severe, with psychotic features JABARI ARBOLEDA MD October 07, 2020 06:39
--- NOTE | 2020-10-07 07:17 | PDOC ---
Exam Note: [facility] Note: This note is a late entry for 10/05/2020 covers elements not covered in my initial note. Subjective: The patient was seen individually in the evening of 10/05/2020 with Robert BOND, discussed and reviewed the chart. She slept 6-1/2 hours previous night. The patient has difficulty with her liquid Depakene. We will change the Sprinkles. She remains somewhat withdrawn but otherwise cooperative. Again met with her in her room. Review of Systems: Ambulation impaired with walker. No CV, , pulmonary, eye, ENT system symptoms on review. Mental Status Exam: The patient is oriented to herself. Speech coherent. Abstraction is fair. Computation impaired. Language function is intact. Attention span is short. Mood and affect is withdrawn. No clear psychotic symptoms, suicidal or homicidal ideation. Laboratory Data: Reviewed. Impression: Bipolar disorder mixed with psychotic features in partial remission. Anxiety disorder unspecified. Impulse control disorder unspecified. Plan: No change from initial note. Assessment: Vital Signs/I&O: Vital Signs Date Time Temp Pulse Resp B/P (MAP) Pulse Ox O2 Delivery O2 Flow Rate FiO2 10/07/20 05:55 97.3 52 18 165/91 (115) 95 10/06/20 06:08 Room Air I & O 10/06/20 10/06/20 10/07/20 14:59 22:59 06:59 Intake Total 840 ml 600 ml Balance 840 ml 600 ml Current Medications: Meds: Current Medications Medications (Trade) Dose Ordered Sig/Annika Route PRN Reason Start Time Stop Time Status Last Admin Dose Admin Acetaminophen (Tylenol) 650 mg PRN Q6HRS PRN PO MILD PAIN / TEMP > 100.3'F 09/02/20 15:00 09/02/20 16:17 DC Multi-Ingredient Ointment (Analgesic [place]) 1 hui PRN QID PRN TP MUSCLE PAIN 09/02/20 15:00 Al Hydroxide/Mg Hydroxide (Mylanta Plus Xs) 15 ml PRN AFTMEALHC PRN PO DYSPEPSIA 09/02/20 15:00 09/02/20 16:28 DC Magnesium Hydroxide (Milk Of Magnesia) 2,400 mg PRN QHS PRN PO CONSTIPATION 09/02/20 15:00 Acetaminophen (Tylenol) 650 mg PRN Q4HRS PRN PO MILD PAIN / TEMP > 100.3'F 09/02/20 16:15 Albuterol Sulfate (Ventolin Hfa Inhaler) 2 puff BID INH 09/02/20 21:00 10/06/20 19:39 Amlodipine Besylate (Norvasc) 10 mg DAILY PO 09/03/20 09:00 10/06/20 08:29 Atenolol (Tenormin) 50 mg DAILY PO 09/03/20 09:00 10/06/20 08:28 Bupropion HCl (Wellbutrin Xl) 300 mg DAILY PO 09/03/20 09:00 10/06/20 08:27 Divalproex Sodium (Depakote Er) 1,500 mg QHS PO 09/02/20 21:00 09/08/20 20:12 DC 09/07/20 19:41 Docusate Sodium (Colace) 100 mg DAILY PO 09/03/20 09:00 10/06/20 08:27 Donepezil HCl (Aricept) 10 mg HS PO 09/02/20 21:00 10/06/20 19:38 Ferrous Sulfate (Feosol) 325 mg DAILY PO 09/03/20 09:00 10/06/20 08:27 Furosemide (Lasix) 40 mg DAILY PO 09/03/20 09:00 10/06/20 08:27 Guaifenesin (Mucinex Er) 1,200 mg BID PO 09/02/20 21:00 10/06/20 19:37 Hydralazine HCl (Apresoline) 25 mg TID PO 09/02/20 21:00 10/06/20 19:38 Levothyroxine Sodium (Synthroid) 125 mcg DAILY06 PO 09/03/20 06:00 10/07/20 05:41 Al Hydroxide/Mg Hydroxide (Mylanta Plus Xs) 30 ml PRN Q2HRS PRN PO DYSPEPSIA 09/02/20 16:15 Multi-Ingredient Ointment (Analgesic [place]) 1 hui PRN QID PRN TP MUSCLE PAIN 09/02/20 16:15 09/02/20 16:29 DC Montelukast Sodium (Singulair) 10 mg HS PO 09/02/20 21:00 10/06/20 19:38 Olanzapine (ZyPREXA ZYDIS) 2.5 mg PRN Q2HRS PRN PO psychosis/agitation 09/02/20 16:15 09/02/20 16:20 DC Pantoprazole Sodium (Protonix) 40 mg HS PO 09/02/20 21:00 10/06/20 19:37 Polyethylene Glycol (miraLAX) 17 gm DAILY PO 09/03/20 09:00 10/06/20 08:26 Artificial Tears (Artificial Tears) 2 drop BID OU 09/02/20 21:00 10/06/20 19:39 Risperidone (RisperDAL) 0.25 mg QHS PO 09/02/20 21:00 09/07/20 16:47 DC 09/06/20 20:54 Risperidone (RisperDAL) 1 mg QHS PO 09/02/20 21:00 09/07/20 16:47 DC 09/06/20 20:55 Trazodone HCl (Desyrel) 50 mg HS PO 09/02/20 21:00 10/06/20 19:38 Trazodone HCl (Desyrel) 50 mg PRN QHS PRN PO insomnia 09/02/20 16:15 Calcium/Vitamin D (Oscal D 500mg/ 200uts) 1 tab DAILY PO 09/03/20 09:00 10/06/20 08:27 Fluticasone Propionate (Flonase) 2 spray DAILY NS 09/03/20 09:00 10/06/20 08:26 Magnesium Chloride (Mag Delay) 64 mg DAILY PO 09/03/20 09:00 10/06/20 08:27 Non-Formulary Medication (Magnesium Hydroxide (Milk Of Magnesia)) 2,400 mg PRN QHS PRN PO CONSTIPATION 09/02/20 16:15 09/02/20 16:32 DC Metformin HCl (Glucophage) 1,000 mg DAILYWBKFT PO 09/03/20 08:00 10/06/20 08:28 Multivitamins/ Calcium (Thera-M Plus) 1 tab DAILY PO 09/03/20 09:00 10/06/20 08:28 Oxybutynin Chloride (Ditropan) 5 mg QHS PO 09/02/20 21:00 10/06/20 19:36 Guaifenesin (Robitussin) 100 mg PRN Q2HRS PRN PO COUGH 09/02/20 16:30 Hydrocortisone Acetate (Anucort-Hc) 25 mg PRN DAILY PRN RC RECTAL PAIN 09/02/20 16:30 Haloperidol (Haldol) 0.5 mg DAILY PO 09/08/20 09:00 09/16/20 18:34 DC 09/16/20 08:49 Valproic Acid (Depakene) 750 mg BID PO 09/08/20 21:00 10/05/20 15:40 DC 10/05/20 08:32 Haloperidol (Haldol) 0.5 mg HS PO 09/17/20 21:00 09/19/20 14:00 DC 09/18/20 20:10 Mirtazapine (Remeron) 7.5 mg QHS PO 09/18/20 21:00 09/22/20 17:31 DC 09/21/20 20:33 Risperidone (RisperDAL) 1 mg 1X ONCE PO 09/19/20 14:00 09/19/20 14:06 DC 09/19/20 14:44 Risperidone (RisperDAL) 1.5 mg DAILY PO 09/20/20 09:00 09/26/20 18:01 DC 09/26/20 09:31 Mirtazapine (Remeron) 15 mg QHS PO 09/22/20 21:00 10/06/20 19:38 Risperidone (RisperDAL) 2 mg DAILY PO 09/27/20 09:00 10/06/20 08:28 Divalproex Sodium (Depakote Sprinkles) 750 mg BID PO 10/05/20 21:00 10/06/20 19:38 I have reviewed the current psychotropics carefully including drug interactions. Risk benefit ratio favors no change other than as noted in my dictated progress note. Diagnosis: Problems: (1) Impulse control disorder, unspecified (2) Anxiety disorder, unspecified (3) Bipolar disorder, curr episode mixed, severe, with psychotic features JABARI ARBOLEDA MD October 07, 2020 07:17
--- NOTE | 2020-10-07 07:42 | PDOC ---
Exam Note: [facility] Note: This note is a late entry for 10/06/2020 covers elements not covered in my initial note. Subjective: The patient was seen individually in the evening of 10/06/2020 with Robert BOND, discussed and reviewed the chart. She slept 4-1/4 hours previous night. Overall the patient has done well today during the day though she was a little grumpy last evening. I met with her in her room. Review of Systems: Ambulation impaired with walker. No CV, , pulmonary, eye, ENT system symptoms on review. Mental Status Exam: The patient is oriented to herself. I met with her in her room. She is little more verbal and interactive. Speech coherent. Abstraction is fair. Computation impaired. Language function is intact. Mood and affect is withdrawn. No suicidal or homicidal ideation. Laboratory Data: Reviewed. Impression: Bipolar disorder mixed with psychotic features in partial remission. Anxiety disorder unspecified. Impulse control disorder unspecified. Plan: No change from initial note. Assessment: Vital Signs/I&O: Vital Signs Date Time Temp Pulse Resp B/P (MAP) Pulse Ox O2 Delivery O2 Flow Rate FiO2 10/07/20 05:55 97.3 52 18 165/91 (115) 95 10/06/20 06:08 Room Air I & O 10/06/20 10/06/20 10/07/20 15:00 23:00 07:00 Intake Total 840 ml 600 ml Balance 840 ml 600 ml Current Medications: Meds: Current Medications Medications (Trade) Dose Ordered Sig/Annika Route PRN Reason Start Time Stop Time Status Last Admin Dose Admin Acetaminophen (Tylenol) 650 mg PRN Q6HRS PRN PO MILD PAIN / TEMP > 100.3'F 09/02/20 15:00 09/02/20 16:17 DC Multi-Ingredient Ointment (Analgesic [place]) 1 hui PRN QID PRN TP MUSCLE PAIN 09/02/20 15:00 Al Hydroxide/Mg Hydroxide (Mylanta Plus Xs) 15 ml PRN AFTMEALHC PRN PO DYSPEPSIA 09/02/20 15:00 09/02/20 16:28 DC Magnesium Hydroxide (Milk Of Magnesia) 2,400 mg PRN QHS PRN PO CONSTIPATION 09/02/20 15:00 Acetaminophen (Tylenol) 650 mg PRN Q4HRS PRN PO MILD PAIN / TEMP > 100.3'F 09/02/20 16:15 Albuterol Sulfate (Ventolin Hfa Inhaler) 2 puff BID INH 09/02/20 21:00 10/06/20 19:39 Amlodipine Besylate (Norvasc) 10 mg DAILY PO 09/03/20 09:00 10/06/20 08:29 Atenolol (Tenormin) 50 mg DAILY PO 09/03/20 09:00 10/06/20 08:28 Bupropion HCl (Wellbutrin Xl) 300 mg DAILY PO 09/03/20 09:00 10/06/20 08:27 Divalproex Sodium (Depakote Er) 1,500 mg QHS PO 09/02/20 21:00 09/08/20 20:12 DC 09/07/20 19:41 Docusate Sodium (Colace) 100 mg DAILY PO 09/03/20 09:00 10/06/20 08:27 Donepezil HCl (Aricept) 10 mg HS PO 09/02/20 21:00 10/06/20 19:38 Ferrous Sulfate (Feosol) 325 mg DAILY PO 09/03/20 09:00 10/06/20 08:27 Furosemide (Lasix) 40 mg DAILY PO 09/03/20 09:00 10/06/20 08:27 Guaifenesin (Mucinex Er) 1,200 mg BID PO 09/02/20 21:00 10/06/20 19:37 Hydralazine HCl (Apresoline) 25 mg TID PO 09/02/20 21:00 10/06/20 19:38 Levothyroxine Sodium (Synthroid) 125 mcg DAILY06 PO 09/03/20 06:00 10/07/20 05:41 Al Hydroxide/Mg Hydroxide (Mylanta Plus Xs) 30 ml PRN Q2HRS PRN PO DYSPEPSIA 09/02/20 16:15 Multi-Ingredient Ointment (Analgesic [place]) 1 hui PRN QID PRN TP MUSCLE PAIN 09/02/20 16:15 09/02/20 16:29 DC Montelukast Sodium (Singulair) 10 mg HS PO 09/02/20 21:00 10/06/20 19:38 Olanzapine (ZyPREXA ZYDIS) 2.5 mg PRN Q2HRS PRN PO psychosis/agitation 09/02/20 16:15 09/02/20 16:20 DC Pantoprazole Sodium (Protonix) 40 mg HS PO 09/02/20 21:00 10/06/20 19:37 Polyethylene Glycol (miraLAX) 17 gm DAILY PO 09/03/20 09:00 10/06/20 08:26 Artificial Tears (Artificial Tears) 2 drop BID OU 09/02/20 21:00 10/06/20 19:39 Risperidone (RisperDAL) 0.25 mg QHS PO 09/02/20 21:00 09/07/20 16:47 DC 09/06/20 20:54 Risperidone (RisperDAL) 1 mg QHS PO 09/02/20 21:00 09/07/20 16:47 DC 09/06/20 20:55 Trazodone HCl (Desyrel) 50 mg HS PO 09/02/20 21:00 10/06/20 19:38 Trazodone HCl (Desyrel) 50 mg PRN QHS PRN PO insomnia 09/02/20 16:15 Calcium/Vitamin D (Oscal D 500mg/ 200uts) 1 tab DAILY PO 09/03/20 09:00 10/06/20 08:27 Fluticasone Propionate (Flonase) 2 spray DAILY NS 09/03/20 09:00 10/06/20 08:26 Magnesium Chloride (Mag Delay) 64 mg DAILY PO 09/03/20 09:00 10/06/20 08:27 Non-Formulary Medication (Magnesium Hydroxide (Milk Of Magnesia)) 2,400 mg PRN QHS PRN PO CONSTIPATION 09/02/20 16:15 09/02/20 16:32 DC Metformin HCl (Glucophage) 1,000 mg DAILYWBKFT PO 09/03/20 08:00 10/06/20 08:28 Multivitamins/ Calcium (Thera-M Plus) 1 tab DAILY PO 09/03/20 09:00 10/06/20 08:28 Oxybutynin Chloride (Ditropan) 5 mg QHS PO 09/02/20 21:00 10/06/20 19:36 Guaifenesin (Robitussin) 100 mg PRN Q2HRS PRN PO COUGH 09/02/20 16:30 Hydrocortisone Acetate (Anucort-Hc) 25 mg PRN DAILY PRN RC RECTAL PAIN 09/02/20 16:30 Haloperidol (Haldol) 0.5 mg DAILY PO 09/08/20 09:00 09/16/20 18:34 DC 09/16/20 08:49 Valproic Acid (Depakene) 750 mg BID PO 09/08/20 21:00 10/05/20 15:40 DC 10/05/20 08:32 Haloperidol (Haldol) 0.5 mg HS PO 09/17/20 21:00 09/19/20 14:00 DC 09/18/20 20:10 Mirtazapine (Remeron) 7.5 mg QHS PO 09/18/20 21:00 09/22/20 17:31 DC 09/21/20 20:33 Risperidone (RisperDAL) 1 mg 1X ONCE PO 09/19/20 14:00 09/19/20 14:06 DC 09/19/20 14:44 Risperidone (RisperDAL) 1.5 mg DAILY PO 09/20/20 09:00 09/26/20 18:01 DC 09/26/20 09:31 Mirtazapine (Remeron) 15 mg QHS PO 09/22/20 21:00 10/06/20 19:38 Risperidone (RisperDAL) 2 mg DAILY PO 09/27/20 09:00 10/06/20 08:28 Divalproex Sodium (Depakote Sprinkles) 750 mg BID PO 10/05/20 21:00 10/06/20 19:38 I have reviewed the current psychotropics carefully including drug interactions. Risk benefit ratio favors no change other than as noted in my dictated progress note. Diagnosis: Problems: (1) Impulse control disorder, unspecified (2) Anxiety disorder, unspecified (3) Bipolar disorder, curr episode mixed, severe, with psychotic features JABARI ARBOLEDA MD October 07, 2020 07:42
[2020-10-07] MEDS: FLUTICASONE 50MCG/NASAL SPRAY 16GM BOTTLE. NS SCH (08:24)
[2020-10-07] MEDS: ALBUTEROL SULFATE 8GM INHALER. INH SCH ×2 (08:25→19:49)
[2020-10-07] MEDS: POLYVINYL ALCOHOL 1.4% OPHTH SOLUTION 15ML BOTTLE. OU SCH ×2 (08:25→19:49)
[2020-10-07] MEDS: buPROPion XL 300 MG TAB.ER.24H. PO SCH (08:26)
[2020-10-07] MEDS: metFORMIN 500 MG TABLET PO SCH (08:26)
[2020-10-07] MEDS: FERROUS SULFATE 325 MG TABLET. PO SCH (08:26)
[2020-10-07] MEDS: DOCUSATE SODIUM 100 MG CAPSULE PO SCH (08:26)
[2020-10-07] MEDS: MAGNESIUM CHLORIDE ER 64 MG TABLET.ER PO SCH (08:26)
[2020-10-07] MEDS: ATENOLOL 50 MG TABLET PO SCH (08:26)
[2020-10-07] MEDS: DIVALPROEX 125 MG CAP.SPRINK PO SCH ×2 (08:26→19:52)
[2020-10-07] MEDS: risperiDONE 2 MG TABLET. PO SCH (08:26)
[2020-10-07] MEDS: MULTIVITAMIN with MINERAL TABLET. PO SCH (08:27)
[2020-10-07] MEDS: amLODIPine BESYLATE 10 MG TABLET PO SCH (08:27)
[2020-10-07] MEDS: FUROSEMIDE 40 MG TABLET PO SCH (08:27)
[2020-10-07] MEDS: POLYETHYLENE GLYCOL 3350 17 GM PACKET. PO SCH (08:27)
[2020-10-07] MEDS: CALCIUM CARB/VIT D3 500/200 TABLET PO SCH (08:27)
[2020-10-07] MEDS: hydrALAZINE 25 MG TABLET PO SCH ×3 (08:28→19:50)
[2020-10-07 15:43] VITALS: BP 132/71
[2020-10-07] MEDS: PANTOPRAZOLE 40 MG TABLET. PO SCH (19:51)
[2020-10-07] MEDS: MIRTAZAPINE 7.5 MG TABLET. PO SCH (19:51)
[2020-10-07] MEDS: DONEPEZIL HCL 10 MG TABLET PO SCH (19:51)
[2020-10-07] MEDS: MONTELUKAST 10 MG TABLET. PO SCH (19:51)
[2020-10-07] MEDS: OXYBUTYNIN CHLORIDE 5 MG TABLET PO SCH (19:51)
[2020-10-07] MEDS: traZODone 50 MG TABLET. PO SCH (19:52)
--- NOTE | 2020-10-07 21:49 | PDOC ---
Exam Note: [facility] Note: Please also refer to the separate dictated note~for this date of service dictated separately.~Patient seen individually. Discussed the patient with Nursing staff reviewed the chart.~Reviewed interim history and current functioning. Reviewed vital signs,~Labs/ Radiology~and current medications noted below. Continue current treatment with the changes noted in the dictated addendum note Assessment: Vital Signs/I&O: Vital Signs Date Time Temp Pulse Resp B/P (MAP) Pulse Ox O2 Delivery O2 Flow Rate FiO2 10/07/20 19:50 62 132/71 10/07/20 15:43 96.6 19 96 10/06/20 06:08 Room Air I & O 10/06/20 10/06/20 10/07/20 15:00 23:00 07:00 Intake Total 840 ml 600 ml Balance 840 ml 600 ml Current Medications: Meds: Current Medications Medications (Trade) Dose Ordered Sig/Annika Route PRN Reason Start Time Stop Time Status Last Admin Dose Admin Acetaminophen (Tylenol) 650 mg PRN Q6HRS PRN PO MILD PAIN / TEMP > 100.3'F 09/02/20 15:00 09/02/20 16:17 DC Multi-Ingredient Ointment (Analgesic [place]) 1 hui PRN QID PRN TP MUSCLE PAIN 09/02/20 15:00 Al Hydroxide/Mg Hydroxide (Mylanta Plus Xs) 15 ml PRN AFTMEALHC PRN PO DYSPEPSIA 09/02/20 15:00 09/02/20 16:28 DC Magnesium Hydroxide (Milk Of Magnesia) 2,400 mg PRN QHS PRN PO CONSTIPATION 09/02/20 15:00 Acetaminophen (Tylenol) 650 mg PRN Q4HRS PRN PO MILD PAIN / TEMP > 100.3'F 09/02/20 16:15 Albuterol Sulfate (Ventolin Hfa Inhaler) 2 puff BID INH 09/02/20 21:00 10/07/20 19:49 Amlodipine Besylate (Norvasc) 10 mg DAILY PO 09/03/20 09:00 10/07/20 08:27 Atenolol (Tenormin) 50 mg DAILY PO 09/03/20 09:00 10/07/20 08:26 Bupropion HCl (Wellbutrin Xl) 300 mg DAILY PO 09/03/20 09:00 10/07/20 08:26 Divalproex Sodium (Depakote Er) 1,500 mg QHS PO 09/02/20 21:00 09/08/20 20:12 DC 09/07/20 19:41 Docusate Sodium (Colace) 100 mg DAILY PO 09/03/20 09:00 10/07/20 08:26 Donepezil HCl (Aricept) 10 mg HS PO 09/02/20 21:00 10/07/20 19:51 Ferrous Sulfate (Feosol) 325 mg DAILY PO 09/03/20 09:00 10/07/20 08:26 Furosemide (Lasix) 40 mg DAILY PO 09/03/20 09:00 10/07/20 08:27 Guaifenesin (Mucinex Er) 1,200 mg BID PO 09/02/20 21:00 10/07/20 19:51 Hydralazine HCl (Apresoline) 25 mg TID PO 09/02/20 21:00 10/07/20 19:50 Levothyroxine Sodium (Synthroid) 125 mcg DAILY06 PO 09/03/20 06:00 10/07/20 05:41 Al Hydroxide/Mg Hydroxide (Mylanta Plus Xs) 30 ml PRN Q2HRS PRN PO DYSPEPSIA 09/02/20 16:15 Multi-Ingredient Ointment (Analgesic [place]) 1 hui PRN QID PRN TP MUSCLE PAIN 09/02/20 16:15 09/02/20 16:29 DC Montelukast Sodium (Singulair) 10 mg HS PO 09/02/20 21:00 10/07/20 19:51 Olanzapine (ZyPREXA ZYDIS) 2.5 mg PRN Q2HRS PRN PO psychosis/agitation 09/02/20 16:15 09/02/20 16:20 DC Pantoprazole Sodium (Protonix) 40 mg HS PO 09/02/20 21:00 10/07/20 19:51 Polyethylene Glycol (miraLAX) 17 gm DAILY PO 09/03/20 09:00 10/06/20 08:26 Artificial Tears (Artificial Tears) 2 drop BID OU 09/02/20 21:00 10/07/20 19:49 Risperidone (RisperDAL) 0.25 mg QHS PO 09/02/20 21:00 09/07/20 16:47 DC 09/06/20 20:54 Risperidone (RisperDAL) 1 mg QHS PO 09/02/20 21:00 09/07/20 16:47 DC 09/06/20 20:55 Trazodone HCl (Desyrel) 50 mg HS PO 09/02/20 21:00 10/07/20 19:52 Trazodone HCl (Desyrel) 50 mg PRN QHS PRN PO insomnia 09/02/20 16:15 Calcium/Vitamin D (Oscal D 500mg/ 200uts) 1 tab DAILY PO 09/03/20 09:00 10/07/20 08:27 Fluticasone Propionate (Flonase) 2 spray DAILY NS 09/03/20 09:00 10/07/20 08:24 Magnesium Chloride (Mag Delay) 64 mg DAILY PO 09/03/20 09:00 10/07/20 08:26 Non-Formulary Medication (Magnesium Hydroxide (Milk Of Magnesia)) 2,400 mg PRN QHS PRN PO CONSTIPATION 09/02/20 16:15 09/02/20 16:32 DC Metformin HCl (Glucophage) 1,000 mg DAILYWBKFT PO 09/03/20 08:00 10/07/20 08:26 Multivitamins/ Calcium (Thera-M Plus) 1 tab DAILY PO 09/03/20 09:00 10/07/20 08:27 Oxybutynin Chloride (Ditropan) 5 mg QHS PO 09/02/20 21:00 10/07/20 19:51 Guaifenesin (Robitussin) 100 mg PRN Q2HRS PRN PO COUGH 09/02/20 16:30 Hydrocortisone Acetate (Anucort-Hc) 25 mg PRN DAILY PRN RC RECTAL PAIN 09/02/20 16:30 Haloperidol (Haldol) 0.5 mg DAILY PO 09/08/20 09:00 09/16/20 18:34 DC 09/16/20 08:49 Valproic Acid (Depakene) 750 mg BID PO 09/08/20 21:00 10/05/20 15:40 DC 10/05/20 08:32 Haloperidol (Haldol) 0.5 mg HS PO 09/17/20 21:00 09/19/20 14:00 DC 09/18/20 20:10 Mirtazapine (Remeron) 7.5 mg QHS PO 09/18/20 21:00 09/22/20 17:31 DC 09/21/20 20:33 Risperidone (RisperDAL) 1 mg 1X ONCE PO 09/19/20 14:00 09/19/20 14:06 DC 09/19/20 14:44 Risperidone (RisperDAL) 1.5 mg DAILY PO 09/20/20 09:00 09/26/20 18:01 DC 09/26/20 09:31 Mirtazapine (Remeron) 15 mg QHS PO 09/22/20 21:00 10/07/20 19:51 Risperidone (RisperDAL) 2 mg DAILY PO 09/27/20 09:00 10/07/20 08:26 Divalproex Sodium (Depakote Sprinkles) 750 mg BID PO 10/05/20 21:00 10/07/20 19:52 I have reviewed the current psychotropics carefully including drug interactions. Risk benefit ratio favors no change other than as noted in my dictated progress note. Diagnosis: Problems: (1) Impulse control disorder, unspecified (2) Anxiety disorder, unspecified (3) Bipolar disorder, curr episode mixed, severe, with psychotic features JABARI ARBOLEDA MD October 07, 2020 21:49
[2020-10-08] MEDS ORDERED: DIVA125C2 PO (01:15)
[2020-10-08] MEDS ORDERED: MIRT15TA3 PO (01:31)
[2020-10-08 04:29] VITALS: BP 178/86
[2020-10-08] MEDS: LEVOTHYROXINE 125 MCG TABLET PO SCH (04:46)
[2020-10-08 05:34] VITALS: BP 175/86
[2020-10-08] MEDS: POLYVINYL ALCOHOL 1.4% OPHTH SOLUTION 15ML BOTTLE. OU SCH (08:54)
[2020-10-08] MEDS: POLYETHYLENE GLYCOL 3350 17 GM PACKET. PO SCH (08:54)
[2020-10-08] MEDS: FLUTICASONE 50MCG/NASAL SPRAY 16GM BOTTLE. NS SCH (08:54)
[2020-10-08] MEDS: MULTIVITAMIN with MINERAL TABLET. PO SCH (08:55)
[2020-10-08] MEDS: MAGNESIUM CHLORIDE ER 64 MG TABLET.ER PO SCH ×2 (08:55→09:00)
[2020-10-08] MEDS: metFORMIN 500 MG TABLET PO SCH (08:55)
[2020-10-08] MEDS: ATENOLOL 50 MG TABLET PO SCH (08:55)
[2020-10-08] MEDS: DIVALPROEX 125 MG CAP.SPRINK PO SCH (08:55)
[2020-10-08] MEDS: CALCIUM CARB/VIT D3 500/200 TABLET PO SCH (08:56)
[2020-10-08] MEDS: buPROPion XL 300 MG TAB.ER.24H. PO SCH ×2 (08:56→09:00)
[2020-10-08] MEDS: FUROSEMIDE 40 MG TABLET PO SCH (08:56)
[2020-10-08] MEDS: risperiDONE 2 MG TABLET. PO SCH (08:56)
[2020-10-08] MEDS: amLODIPine BESYLATE 10 MG TABLET PO SCH ×2 (08:56→09:00)
[2020-10-08] MEDS: DOCUSATE SODIUM 100 MG CAPSULE PO SCH ×2 (08:57→09:00)
[2020-10-08] MEDS: hydrALAZINE 25 MG TABLET PO SCH ×2 (08:57→09:00)
[2020-10-08] MEDS: FERROUS SULFATE 325 MG TABLET. PO SCH (08:57)
[2020-10-08] MEDS: ALBUTEROL SULFATE 8GM INHALER. INH SCH (08:58)
[2020-10-08 09:00] VITALS: BP 175/86
--- NOTE | 2020-10-08 22:52 | PDOC ---
Exam Note: [facility] Note: Please also refer to the separate dictated note~for this date of service dictated separately.~Patient seen individually. Discussed the patient with Nursing staff reviewed the chart.~Reviewed interim history and current functioning. Reviewed vital signs,~Labs/ Radiology~and current medications noted below. Continue current treatment with the changes noted in the dictated addendum note Assessment: Vital Signs/I&O: Vital Signs Date Time Temp Pulse Resp B/P (MAP) Pulse Ox O2 Delivery O2 Flow Rate FiO2 10/08/20 09:00 54 175/86 10/08/20 05:34 97.6 18 96 10/06/20 06:08 Room Air I & O 10/07/20 10/07/20 10/08/20 15:00 23:00 07:00 Intake Total 960 ml 600 ml Balance 960 ml 600 ml Labs: Laboratory Tests Test 10/08/20 10:45 SARS-CoV-2 (PCR) Negative (NEGATIVE) SARS-CoV-2 Antigen (Rapid) Negative (NEGATIVE) Current Medications: Meds: Laboratory Tests Test 10/08/20 10:45 Coronavirus (COVID-19)(PCR) Negative SARS-CoV-2 Antigen (Rapid) Negative Current Medications Medications (Trade) Dose Ordered Sig/Annika Route PRN Reason Start Time Stop Time Status Last Admin Dose Admin Acetaminophen (Tylenol) 650 mg PRN Q6HRS PRN PO MILD PAIN / TEMP > 100.3'F 09/02/20 15:00 09/02/20 16:17 DC Multi-Ingredient Ointment (Analgesic [place]) 1 hui PRN QID PRN TP MUSCLE PAIN 09/02/20 15:00 10/08/20 13:38 DC Al Hydroxide/Mg Hydroxide (Mylanta Plus Xs) 15 ml PRN AFTMEALHC PRN PO DYSPEPSIA 09/02/20 15:00 09/02/20 16:28 DC Magnesium Hydroxide (Milk Of Magnesia) 2,400 mg PRN QHS PRN PO CONSTIPATION 09/02/20 15:00 10/08/20 13:38 DC Acetaminophen (Tylenol) 650 mg PRN Q4HRS PRN PO MILD PAIN / TEMP > 100.3'F 09/02/20 16:15 10/08/20 13:38 DC Albuterol Sulfate (Ventolin Hfa Inhaler) 2 puff BID INH 09/02/20 21:00 10/08/20 13:38 DC 10/08/20 08:58 Amlodipine Besylate (Norvasc) 10 mg DAILY PO 09/03/20 09:00 10/08/20 13:38 DC 10/07/20 08:27 Atenolol (Tenormin) 50 mg DAILY PO 09/03/20 09:00 10/08/20 13:38 DC 10/08/20 08:55 Bupropion HCl (Wellbutrin Xl) 300 mg DAILY PO 09/03/20 09:00 10/08/20 13:38 DC 10/07/20 08:26 Divalproex Sodium (Depakote Er) 1,500 mg QHS PO 09/02/20 21:00 09/08/20 20:12 DC 09/07/20 19:41 Docusate Sodium (Colace) 100 mg DAILY PO 09/03/20 09:00 10/08/20 13:38 DC 10/07/20 08:26 Donepezil HCl (Aricept) 10 mg HS PO 09/02/20 21:00 10/08/20 13:38 DC 10/07/20 19:51 Ferrous Sulfate (Feosol) 325 mg DAILY PO 09/03/20 09:00 10/08/20 13:38 DC 10/08/20 08:57 Furosemide (Lasix) 40 mg DAILY PO 09/03/20 09:00 10/08/20 13:38 DC 10/08/20 08:56 Guaifenesin (Mucinex Er) 1,200 mg BID PO 09/02/20 21:00 10/08/20 13:38 DC 10/08/20 08:56 Hydralazine HCl (Apresoline) 25 mg TID PO 09/02/20 21:00 10/08/20 13:38 DC 10/07/20 19:50 Levothyroxine Sodium (Synthroid) 125 mcg DAILY06 PO 09/03/20 06:00 10/08/20 13:38 DC 10/08/20 04:46 Al Hydroxide/Mg Hydroxide (Mylanta Plus Xs) 30 ml PRN Q2HRS PRN PO DYSPEPSIA 09/02/20 16:15 10/08/20 13:38 DC Multi-Ingredient Ointment (Analgesic [place]) 1 hui PRN QID PRN TP MUSCLE PAIN 09/02/20 16:15 09/02/20 16:29 DC Montelukast Sodium (Singulair) 10 mg HS PO 09/02/20 21:00 10/08/20 13:38 DC 10/07/20 19:51 Olanzapine (ZyPREXA ZYDIS) 2.5 mg PRN Q2HRS PRN PO psychosis/agitation 09/02/20 16:15 09/02/20 16:20 DC Pantoprazole Sodium (Protonix) 40 mg HS PO 09/02/20 21:00 10/08/20 13:38 DC 10/07/20 19:51 Polyethylene Glycol (miraLAX) 17 gm DAILY PO 09/03/20 09:00 10/08/20 13:38 DC 10/08/20 08:54 Artificial Tears (Artificial Tears) 2 drop BID OU 09/02/20 21:00 10/08/20 13:38 DC 10/08/20 08:54 Risperidone (RisperDAL) 0.25 mg QHS PO 09/02/20 21:00 09/07/20 16:47 DC 09/06/20 20:54 Risperidone (RisperDAL) 1 mg QHS PO 09/02/20 21:00 09/07/20 16:47 DC 09/06/20 20:55 Trazodone HCl (Desyrel) 50 mg HS PO 09/02/20 21:00 10/08/20 13:38 DC 10/07/20 19:52 Trazodone HCl (Desyrel) 50 mg PRN QHS PRN PO insomnia 09/02/20 16:15 10/08/20 13:38 DC Calcium/Vitamin D (Oscal D 500mg/ 200uts) 1 tab DAILY PO 09/03/20 09:00 10/08/20 13:38 DC 10/08/20 08:56 Fluticasone Propionate (Flonase) 2 spray DAILY NS 09/03/20 09:00 10/08/20 13:38 DC 10/08/20 08:54 Magnesium Chloride (Mag Delay) 64 mg DAILY PO 09/03/20 09:00 10/08/20 13:38 DC 10/07/20 08:26 Non-Formulary Medication (Magnesium Hydroxide (Milk Of Magnesia)) 2,400 mg PRN QHS PRN PO CONSTIPATION 09/02/20 16:15 09/02/20 16:32 DC Metformin HCl (Glucophage) 1,000 mg DAILYWBKFT PO 09/03/20 08:00 10/08/20 13:38 DC 10/08/20 08:55 Multivitamins/ Calcium (Thera-M Plus) 1 tab DAILY PO 09/03/20 09:00 10/08/20 13:38 DC 10/08/20 08:55 Oxybutynin Chloride (Ditropan) 5 mg QHS PO 09/02/20 21:00 10/08/20 13:38 DC 10/07/20 19:51 Guaifenesin (Robitussin) 100 mg PRN Q2HRS PRN PO COUGH 09/02/20 16:30 10/08/20 13:38 DC Hydrocortisone Acetate (Anucort-Hc) 25 mg PRN DAILY PRN RC RECTAL PAIN 09/02/20 16:30 10/08/20 13:38 DC Haloperidol (Haldol) 0.5 mg DAILY PO 09/08/20 09:00 09/16/20 18:34 DC 09/16/20 08:49 Valproic Acid (Depakene) 750 mg BID PO 09/08/20 21:00 10/05/20 15:40 DC 10/05/20 08:32 Haloperidol (Haldol) 0.5 mg HS PO 09/17/20 21:00 09/19/20 14:00 DC 09/18/20 20:10 Mirtazapine (Remeron) 7.5 mg QHS PO 09/18/20 21:00 09/22/20 17:31 DC 09/21/20 20:33 Risperidone (RisperDAL) 1 mg 1X ONCE PO 09/19/20 14:00 09/19/20 14:06 DC 09/19/20 14:44 Risperidone (RisperDAL) 1.5 mg DAILY PO 09/20/20 09:00 09/26/20 18:01 DC 09/26/20 09:31 Mirtazapine (Remeron) 15 mg QHS PO 09/22/20 21:00 10/08/20 13:38 DC 10/07/20 19:51 Risperidone (RisperDAL) 2 mg DAILY PO 09/27/20 09:00 10/08/20 13:38 DC 10/08/20 08:56 Divalproex Sodium (Depakote Sprinkles) 750 mg BID PO 10/05/20 21:00 10/08/20 13:38 DC 10/08/20 08:55 I have reviewed the current psychotropics carefully including drug interactions. Risk benefit ratio favors no change other than as noted in my dictated progress note. Diagnosis: Problems: (1) Impulse control disorder, unspecified (2) Anxiety disorder, unspecified (3) Bipolar disorder, curr episode mixed, severe, with psychotic features JABARI ARBOLEDA MD October 08, 2020 22:52
--- NOTE | 2020-10-09 07:44 | PDOC ---
Exam Note: [facility] Note: This note is a late entry for 10/07/2020 covers elements not covered in my initial note. Subjective: The patient was seen individually in the evening of 10/07/2020 with Geneva BOND, discussed and reviewed the chart. She slept 5-1/2 hours previous night. I met with her in her room. She has been somewhat isolative but appropriate. Review of Systems: Ambulation impaired with walker. No CV, , pulmonary, eye, ENT system symptoms on review. Mental Status Exam: The patient is oriented to herself. Speech coherent. Abstraction is fair. Computation impaired. Language function is intact. Mood and affect is withdrawn. No suicidal or homicidal ideation. Laboratory Data: Reviewed. Impression: Bipolar disorder mixed with psychotic features in partial remission. Anxiety disorder unspecified. Impulse control disorder unspecified. Plan: No change from initial note. Assessment: Vital Signs/I&O: Vital Signs Date Time Temp Pulse Resp B/P (MAP) Pulse Ox O2 Delivery O2 Flow Rate FiO2 10/08/20 09:00 54 175/86 10/08/20 05:34 97.6 18 96 10/06/20 06:08 Room Air I & O 10/08/20 10/08/20 10/09/20 15:00 23:00 07:00 Intake Total 360 ml Balance 360 ml Labs: Laboratory Tests Test 10/08/20 10:45 SARS-CoV-2 (PCR) Negative (NEGATIVE) SARS-CoV-2 Antigen (Rapid) Negative (NEGATIVE) Current Medications: Meds: Laboratory Tests Test 10/08/20 10:45 Coronavirus (COVID-19)(PCR) Negative SARS-CoV-2 Antigen (Rapid) Negative Current Medications Medications (Trade) Dose Ordered Sig/Annika Route PRN Reason Start Time Stop Time Status Last Admin Dose Admin Acetaminophen (Tylenol) 650 mg PRN Q6HRS PRN PO MILD PAIN / TEMP > 100.3'F 09/02/20 15:00 09/02/20 16:17 DC Multi-Ingredient Ointment (Analgesic [place]) 1 hui PRN QID PRN TP MUSCLE PAIN 09/02/20 15:00 10/08/20 13:38 DC Al Hydroxide/Mg Hydroxide (Mylanta Plus Xs) 15 ml PRN AFTMEALHC PRN PO DYSPEPSIA 09/02/20 15:00 09/02/20 16:28 DC Magnesium Hydroxide (Milk Of Magnesia) 2,400 mg PRN QHS PRN PO CONSTIPATION 09/02/20 15:00 10/08/20 13:38 DC Acetaminophen (Tylenol) 650 mg PRN Q4HRS PRN PO MILD PAIN / TEMP > 100.3'F 09/02/20 16:15 10/08/20 13:38 DC Albuterol Sulfate (Ventolin Hfa Inhaler) 2 puff BID INH 09/02/20 21:00 10/08/20 13:38 DC 10/08/20 08:58 Amlodipine Besylate (Norvasc) 10 mg DAILY PO 09/03/20 09:00 10/08/20 13:38 DC 10/07/20 08:27 Atenolol (Tenormin) 50 mg DAILY PO 09/03/20 09:00 10/08/20 13:38 DC 10/08/20 08:55 Bupropion HCl (Wellbutrin Xl) 300 mg DAILY PO 09/03/20 09:00 10/08/20 13:38 DC 10/07/20 08:26 Divalproex Sodium (Depakote Er) 1,500 mg QHS PO 09/02/20 21:00 09/08/20 20:12 DC 09/07/20 19:41 Docusate Sodium (Colace) 100 mg DAILY PO 09/03/20 09:00 10/08/20 13:38 DC 10/07/20 08:26 Donepezil HCl (Aricept) 10 mg HS PO 09/02/20 21:00 10/08/20 13:38 DC 10/07/20 19:51 Ferrous Sulfate (Feosol) 325 mg DAILY PO 09/03/20 09:00 10/08/20 13:38 DC 10/08/20 08:57 Furosemide (Lasix) 40 mg DAILY PO 09/03/20 09:00 10/08/20 13:38 DC 10/08/20 08:56 Guaifenesin (Mucinex Er) 1,200 mg BID PO 09/02/20 21:00 10/08/20 13:38 DC 10/08/20 08:56 Hydralazine HCl (Apresoline) 25 mg TID PO 09/02/20 21:00 10/08/20 13:38 DC 10/07/20 19:50 Levothyroxine Sodium (Synthroid) 125 mcg DAILY06 PO 09/03/20 06:00 10/08/20 13:38 DC 10/08/20 04:46 Al Hydroxide/Mg Hydroxide (Mylanta Plus Xs) 30 ml PRN Q2HRS PRN PO DYSPEPSIA 09/02/20 16:15 10/08/20 13:38 DC Multi-Ingredient Ointment (Analgesic [place]) 1 hui PRN QID PRN TP MUSCLE PAIN 09/02/20 16:15 09/02/20 16:29 DC Montelukast Sodium (Singulair) 10 mg HS PO 09/02/20 21:00 10/08/20 13:38 DC 10/07/20 19:51 Olanzapine (ZyPREXA ZYDIS) 2.5 mg PRN Q2HRS PRN PO psychosis/agitation 09/02/20 16:15 09/02/20 16:20 DC Pantoprazole Sodium (Protonix) 40 mg HS PO 09/02/20 21:00 10/08/20 13:38 DC 10/07/20 19:51 Polyethylene Glycol (miraLAX) 17 gm DAILY PO 09/03/20 09:00 10/08/20 13:38 DC 10/08/20 08:54 Artificial Tears (Artificial Tears) 2 drop BID OU 09/02/20 21:00 10/08/20 13:38 DC 10/08/20 08:54 Risperidone (RisperDAL) 0.25 mg QHS PO 09/02/20 21:00 09/07/20 16:47 DC 09/06/20 20:54 Risperidone (RisperDAL) 1 mg QHS PO 09/02/20 21:00 09/07/20 16:47 DC 09/06/20 20:55 Trazodone HCl (Desyrel) 50 mg HS PO 09/02/20 21:00 10/08/20 13:38 DC 10/07/20 19:52 Trazodone HCl (Desyrel) 50 mg PRN QHS PRN PO insomnia 09/02/20 16:15 10/08/20 13:38 DC Calcium/Vitamin D (Oscal D 500mg/ 200uts) 1 tab DAILY PO 09/03/20 09:00 10/08/20 13:38 DC 10/08/20 08:56 Fluticasone Propionate (Flonase) 2 spray DAILY NS 09/03/20 09:00 10/08/20 13:38 DC 10/08/20 08:54 Magnesium Chloride (Mag Delay) 64 mg DAILY PO 09/03/20 09:00 10/08/20 13:38 DC 10/07/20 08:26 Non-Formulary Medication (Magnesium Hydroxide (Milk Of Magnesia)) 2,400 mg PRN QHS PRN PO CONSTIPATION 09/02/20 16:15 09/02/20 16:32 DC Metformin HCl (Glucophage) 1,000 mg DAILYWBKFT PO 09/03/20 08:00 10/08/20 13:38 DC 10/08/20 08:55 Multivitamins/ Calcium (Thera-M Plus) 1 tab DAILY PO 09/03/20 09:00 10/08/20 13:38 DC 10/08/20 08:55 Oxybutynin Chloride (Ditropan) 5 mg QHS PO 09/02/20 21:00 10/08/20 13:38 DC 10/07/20 19:51 Guaifenesin (Robitussin) 100 mg PRN Q2HRS PRN PO COUGH 09/02/20 16:30 10/08/20 13:38 DC Hydrocortisone Acetate (Anucort-Hc) 25 mg PRN DAILY PRN RC RECTAL PAIN 09/02/20 16:30 10/08/20 13:38 DC Haloperidol (Haldol) 0.5 mg DAILY PO 09/08/20 09:00 09/16/20 18:34 DC 09/16/20 08:49 Valproic Acid (Depakene) 750 mg BID PO 09/08/20 21:00 10/05/20 15:40 DC 10/05/20 08:32 Haloperidol (Haldol) 0.5 mg HS PO 09/17/20 21:00 09/19/20 14:00 DC 09/18/20 20:10 Mirtazapine (Remeron) 7.5 mg QHS PO 09/18/20 21:00 09/22/20 17:31 DC 09/21/20 20:33 Risperidone (RisperDAL) 1 mg 1X ONCE PO 09/19/20 14:00 09/19/20 14:06 DC 09/19/20 14:44 Risperidone (RisperDAL) 1.5 mg DAILY PO 09/20/20 09:00 09/26/20 18:01 DC 09/26/20 09:31 Mirtazapine (Remeron) 15 mg QHS PO 09/22/20 21:00 10/08/20 13:38 DC 10/07/20 19:51 Risperidone (RisperDAL) 2 mg DAILY PO 09/27/20 09:00 10/08/20 13:38 DC 10/08/20 08:56 Divalproex Sodium (Depakote Sprinkles) 750 mg BID PO 10/05/20 21:00 10/08/20 13:38 DC 10/08/20 08:55 I have reviewed the current psychotropics carefully including drug interactions. Risk benefit ratio favors no change other than as noted in my dictated progress note. Diagnosis: Problems: (1) Impulse control disorder, unspecified (2) Anxiety disorder, unspecified (3) Bipolar disorder, curr episode mixed, severe, with psychotic features JABARI ARBOLEDA MD October 09, 2020 07:44
--- NOTE | 2020-10-10 09:29 | DS ---
DATE OF DISCHARGE: 10/08/2020 DISCHARGE SUMMARY/PSYCHIATRIC PROGRESS NOTE This is late entry, date of service 10/08, covers elements not covered in my initial note REASON FOR ADMISSION: Please refer to the admission history for details. Briefly, the patient is a 70-year-old female referred to us from [facility] by her primary care physician/psychiatrist on account of an acute exacerbation of her bipolar disorder with most recent episode manic. She was having marked insomnia, grandiosity, threatening staff, screaming, refusing medications, refusing vitals. She was suspicious of staff pointed a knife at staff members. Staff found a knife under her pillow, impulsive behaviors, random behaviors. Behaviors were deemed dangerous, unmanageable at the facility. She had failed outpatient psychiatric interventions, referred for inpatient psychiatric stabilization. SIGNIFICANT FINDINGS AND CLINICAL COURSE: Following admission, the patient was seen daily individually by myself from a psychiatric standpoint, medical followup Dr. Caraballo/Dr. Livingston. The patient was somewhat irritable, labile and her mood at times withdrawn, difficult to redirect. Adjustments were made in her psychotropic. She seemed to respond to a combination of Wellbutrin XL 300 mg a day, Aricept 10 mg at bedtime, Depakote sprinkles 750 b.i.d. with a Valproic acid level therapeutic at 56. She was on trazodone 50 mg at bedtime plus 50 mg at bedtime p.r.n., insomnia; Remeron 15 mg at bedtime and Risperdal 2 mg daily. REVIEW OF SYSTEMS: Prior to discharge on 10/08, ambulation is impaired with walker. No CV, , pulmonary, eye, ENT system symptoms on review. MENTAL STATUS EXAMINATION: Oriented to herself and situation. Speech has some latency, often responses monosyllabic, abstraction fair, computation impaired. Language function intact. Attention span short. Mood and affect somewhat withdrawn. LABORATORY DATA: Reviewed. CONDITION ON DISCHARGE: Improved. FINAL DIAGNOSES: Bipolar disorder, manic with psychotic features, in partial remission; anxiety disorder, unspecified; impulse control disorder, unspecified; mild cognitive impairment. Rest unchanged from admission. DISCHARGE MEDICATIONS: Please refer to the MRAD. DISCHARGE INSTRUCTIONS: Outpatient psychiatric and medical followup back at the senior living. Time for discharge management greater than 30 minutes. KANA/GEORGE/OLIVA DR: KANA/yvon TID: [id number]
== END 2020-10-08 12:15 | DRG 885 ==
LOC: GEROPSY 14:35
PROVIDERS: ADMIT Psychiatry & Neurology Psychiatry; ATTEND Psychiatry & Neurology Psychiatry
DX: F31.64 Bipolar disorder, current episode mixed, severe, with psychotic features (principal); N17.0 Acute kidney failure with tubular necrosis; N18.9 Chronic kidney disease, unspecified; I13.0 Hypertensive heart and chronic kidney disease with heart failure and stage 1 through stage 4 chronic kidney disease, or unspecified chronic kidney disease; F03.91 Unspecified dementia, unspecified severity, with behavioral disturbance; M19.90 Unspecified osteoarthritis, unspecified site; K21.9 Gastro-esophageal reflux disease without esophagitis; I50.9 Heart failure, unspecified; E03.9 Hypothyroidism, unspecified; E78.5 Hyperlipidemia, unspecified; D64.9 Anemia, unspecified; E11.22 Type 2 diabetes mellitus with diabetic chronic kidney disease; F41.1 Generalized anxiety disorder; Z66 Do not resuscitate; F63.9 Impulse disorder, unspecified; G47.00 Insomnia, unspecified; J45.909 Unspecified asthma, uncomplicated; R32 Unspecified urinary incontinence; Z20.822 Contact with and (suspected) exposure to COVID-19; Z88.0 Allergy status to penicillin; Z88.8 Allergy status to other drugs, medicaments and biological substances; Z91.048 Other nonmedicinal substance allergy status
CPT/HCPCS: 36415; 80053; 80061; 80164; 81001; 82306; 82607; 82947; 83036; 83540; 83550; 83735; 84436; 84443; 84480; 85025; 85379; 86592; 87426; 93005; U0003; 97116; 97530